=== PATIENT | female | born 1965 | race Caucasian/White ===

== ENCOUNTER 2023-02-13 08:36 | Day surgery (SDC) | payer OTHER, SELFPAY ==
[2023-02-13 08:50] VITALS: BMI 37.9
[2023-02-13] MEDS: LACTATED RINGER'S SOLUTION 1,000 ML 50 ML IV (08:59)
--- NOTE | 2023-02-13 09:01 | PC.NURSE ---
Dr. Adams made aware of elevated BP. He approved to continue with procedure at this time.
[2023-02-13 09:59] VITALS: BP 127/87; PULSE 95; RESP 16; TEMP 36.3; O2SAT 96
[2023-02-13 10:17] VITALS: BP 142/95; PULSE 96; RESP 14; O2SAT 97
[2023-02-13 10:29] VITALS: BP 153/96; PULSE 105; RESP 16; O2SAT 96
--- NOTE | 2023-02-13 11:02 | PM.GSPRC ---
Indications for Procedure: This patient is a 57-year-old female who presents for screening colonoscopy. the risks benefits options and potential complications of the procedure were discussed in detail with the patient and they agreed to proceed and consent was signed. Pre-op diagnosis: colon cancer screening Post-op diagnosis: other (diverticulosis) Procedure: colonoscopy Anesthesia: MAC Surgeon: Wes Jacob Procedure Summary: The patient was brought to the endoscopy suite and placed in the left lateral decubitus position.? Under MAC the fiberoptic colonoscope was introduced into the rectum. This was gradually advanced through the colon to the cecum. The cecal landmarks were identified. The bowel prep was good. Gradual withdrawal of the colonoscope was then undertaken. No vascular polypoid or mucosal lesions were noted throughout the entire length of the colon. In the descending colon there were scattered diverticuli. The anal rectal canal was unremarkable. The colon was decompressed. Digital rectal exam was unremarkable. The procedure was ended and the patient was transferred to the recovery area in stable condition. Recommended follow-up colonoscopy in ten years. Estimated blood loss (mL): 0 Specimens: none Complications: No
== END 2023-02-13 10:29 | disposition home or self-care (01) ==
PROVIDERS: PCP Family Medicine; Visit Provider Surgery
PROC: (CPT 45378; principal; 2023-02-13 11:45)
DX: Z12.11 Encounter for screening for malignant neoplasm of colon (principal); K57.30 Diverticulosis of large intestine without perforation or abscess without bleeding; Z79.899 Other long term (current) drug therapy; I12.9 Hypertensive chronic kidney disease with stage 1 through stage 4 chronic kidney disease, or unspecified chronic kidney disease; N18.30 Chronic kidney disease, stage 3 unspecified; I48.91 Unspecified atrial fibrillation; M19.90 Unspecified osteoarthritis, unspecified site; Z96.641 Presence of right artificial hip joint; Z96.662 Presence of left artificial ankle joint; Z90.721 Acquired absence of ovaries, unilateral; Z87.891 Personal history of nicotine dependence
CPT/HCPCS: 45378; J2704

== ENCOUNTER 2023-03-30 06:37 | Emergency (ER) | payer OTHER, SELFPAY ==
[2023-03-30 06:43] VITALS: BP 164/84; PULSE 102; RESP 18; TEMP 36.7; O2SAT 97; BMI 36.3
--- NOTE | 2023-03-30 07:10 | US_ITS ---
The [address] [address] Patient Name: OG SHEFFIELD MRN: [id number] date: 1965 Sex: F Assigned Patient Location: ER Current Patient Location: ER Accession/Order Number: [id number] Exam Date: 03/30/2023 07:15 Report Date: 03/30/2023 07:56 At the request of: AISHWARYA RASHID Procedure: US pelvis transvaginal EXAM: Pelvic ultrasound HISTORY: . postmenopausal bleeding . COMPARISON: None. TECHNIQUE: Transvaginal scanning was performed FINDINGS: Scanning of the pelvis demonstrates uterus to be anteverted and measures 8.8 x 5.5 x 3.9 cm. Endometrial complex measures 9 mm. Right ovary measures 2.6 x 1.7 x 1.7 cm. No masses are noted. Color-flow is noted. Left ovary was not identified. No fluid is noted in the cul-de-sac. US/US pelvis transvaginal IMPRESSION: 1 endometrial complex is thickened for patient that is postmenopausal measuring 9 mm. Findings could be due to endometrial hyperplasia or an endometrial neoplasm. 2. Normal right ovary. 3. Left ovary was not identified. Electronically authenticated by: SUZETTE COULTER Date: 03/30/2023 07:56
--- NOTE | 2023-03-30 07:12 | ED_ITS ---
HPI - Female Genitourinary General Chief complaint: Vaginal Bleeding Stated complaint: VAGINAL BLEEDING Time Seen by Provider: 03/30/23 07:03 Source: patient Mode of arrival: walk-in Limitations: no limitations History of Present Illness HPI Narrative: 57-year-old female presents for vaginal bleeding. She is postmenopausal but five years and she's been bleeding every day for a month. She describes it as spotting. She hasn't seen a spiral machine operator in many years. She had a dermoid cyst and had her left ovary and tube removed about twenty years ago. She doesn't complain of any significant pain to me. No fever or injury. She doesn't take any blood thinners. Related Data Home Medications Medication Instructions Recorded Confirmed amlodipine 10 mg tablet 10 mg PO DAILY 02/05/23 03/30/23 buspirone 5 mg tablet 5 mg PO BID 02/05/23 03/30/23 hydrochlorothiazide 25 mg tablet 12.5 mg PO DAILY 02/05/23 03/30/23 losartan 100 mg tablet (Cozaar) 100 mg PO DAILY 02/05/23 03/30/23 paroxetine HCl 20 mg tablet 20 mg PO DAILY 02/05/23 03/30/23 Previous Rx's Medication Instructions Recorded hydrocortisone acetate 25 mg 25 mg ME BID 2 weeks #28 supp 02/13/23 rectal suppository (Anusol-HC) Allergies Allergy/AdvReac Type Severity Reaction Status Date / Time meperidine [From Demerol] Allergy Hives Verified 03/30/23 06:49 Review of Systems ROS Narrative A ten point review of systems is negative except as noted above. [facility] Medical History (Updated 03/30/23 @ 08:20 by Roman Alston MD) Surgical History (Updated 02/05/23 @ 12:43 by Chary Stewart NP) Family History (Updated 02/05/23 @ 12:43 by Chary Stewart NP) Other Family history of hypertension Family history of kidney cancer Family history of stroke Family history of throat cancer Social History (Updated 02/13/23 @ 08:48 by Rand Choi RN) Within the past year, how often did you have a drink containing alcohol: 4 or more times a week Within the past year, how many standard drinks containing alcohol did you have on a typical day: 1 or 2 Total score: 0 Score interpretation: A score less than 3 is consistent with normal alcohol consumption. 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 General: The patient appears well and in no apparent distress. Patient is resting comfortably on cart. Skin: Warm, dry, no pallor noted. There is no rash noted. Head: Normocephalic, atraumatic Eye: Normal conjunctiva, no drainage Ears, Nose, Mouth, and Throat: oral mucosa is moist. Nares patent. Cardiovascular: Regular Rate and Rhythm Respiratory: Patient is in no distress, no accessory muscle use, lungs are clear to auscultation, no wheezing, rales or rhonchi Back: non-tender GI: no tenderness to palpation, no masses appreciated. No rebound, guarding, or rigidity noted. Musculoskeletal: The patient has no evidence of calf tenderness, no pitting edema, symmetrical pulses noted bilaterally Neurological: A&O x4, normal speech; she is tremorous Psychiatric: Cooperative Constitutional Vital Signs, click to edit/add: Last Vital Signs Temp 98.1 F 03/30/23 06:43 Pulse 102 H 03/30/23 06:43 Resp 18 03/30/23 06:43 BP 164/84 H 03/30/23 06:43 Pulse Ox 97 03/30/23 06:43 O2 Del Method Room Air 03/30/23 06:43 Course Vital Signs Vital signs: Vital Signs Temperature 98.1 F 03/30/23 06:43 Pulse Rate 102 H 03/30/23 06:43 Respiratory Rate 18 03/30/23 06:43 Blood Pressure 164/84 H 03/30/23 06:43 Pulse Oximetry 97 03/30/23 06:43 Oxygen Delivery Method Room Air 03/30/23 06:43 Temperature 98.1 F 03/30/23 06:43 Pulse Rate 102 H 03/30/23 06:43 Respiratory Rate 18 03/30/23 06:43 Blood Pressure 164/84 H 03/30/23 06:43 Pulse Oximetry 97 03/30/23 06:43 Oxygen Delivery Method Room Air 03/30/23 06:43 MDM - Female Genitourinary MDM Narrative Medical decision making narrative: ultrasound findings are discussed with the patient. She'll follow up promptly with gynecology. Hemoglobin is normal. Treatment diagnosis and follow-up were discussed with the patient. Differential Diagnosis Differential diagnosis: Likely other (endometrial hyperplasia, uterine cancer) Lab Data Attestation: I reviewed the patient's lab results. Labs: Lab Results 03/30/23 Range/Units 07:41 WBC 13.3 H (4.0-11.0) 10^3/uL RBC 4.62 (4.20-5.40) 10^6/uL Hgb 14.1 (12.0-16.0) g/dL Hct 41.4 (36.0-48.0) % MCV 89.6 (81.0-99.0) fL MCH 30.5 (26.7-34.0) pg MCHC 34.1 (29.9-35.2) g/dL RDW 13.8 (11.0-15.0) % Plt Count 336 (150-450) 10^3/uL MPV 8.3 L (9.5-13.5) fL Neut % (Auto) 83.6 H (43.0-75.0) % Lymph % (Auto) 10.3 L (20.5-60.0) % [place] % (Auto) 5.0 (1.7-12.0) % Eos % (Auto) 0.3 L (0.9-7.0) % Baso % (Auto) 0.3 (0.2-2.0) % Neut # (Auto) 11.1 H (1.4-6.5) 10^3/uL Lymph # (Auto) 1.4 (1.2-3.8) 10^3/uL [place] # (Auto) 0.7 (0.3-0.8) 10^3/uL Eos # (Auto) 0.0 (0.0-0.7) 10^3/uL Baso # (Auto) 0.0 (0.0-0.1) 10^3/uL Abs Immat Gran (auto) 0.06 H (0.00-0.03) 10^3/uL Imm/Tot Granulo (auto) 0.5 (0.0-0.5) % Sodium 138 (136-145) mmol/L Potassium 3.8 (3.5-5.1) mmol/L Chloride 100 (98-107) mmol/L Carbon Dioxide 26.6 (21.0-32.0) mmol/L Anion Gap 15.2 BUN 9.0 (7.0-18.0) mg/dL Creatinine 0.77 (0.55-1.02) mg/dL Est GFR ( Amer) >60 (>=60) Est GFR (Non-Af Amer) >60 (>=60) BUN/Creatinine Ratio 11.7 Glucose 119 H (74-106) mg/dL Calcium 8.6 (8.5-10.1) mg/dL Discharge Plan Discharge Chief Complaint: Vaginal Bleeding Clinical Impression: Dysfunctional uterine bleeding Patient Disposition: Home, Self-Care Time of Disposition Decision: 08:19 Condition: Good Mode of Transportation: Private Vehicle Prescriptions / Home Meds: No Action amlodipine 10 mg tablet 10 mg PO DAILY buspirone 5 mg tablet 5 mg PO BID hydrochlorothiazide 25 mg tablet 12.5 mg PO DAILY losartan [Cozaar] 100 mg tablet 100 mg PO DAILY paroxetine HCl 20 mg tablet 20 mg PO DAILY hydrocortisone acetate [Anusol-HC] 25 mg suppository 25 mg ME BID 14 Days Qty: 28 0RF Instructions: Abnormal (Dysfunctional) Uterine Bleeding (ED) Additional Instructions: follow-up with Dr. Davidson Stand Alone Forms: Portal Instructions Referrals: Sam Garcia MD [Primary Care Provider] - 1 week
[2023-03-30 07:50] LABS: Basophils Percent Auto 0.3 % (0.2-2.0); Eosinophils Percent Auto 0.3 % (0.9-7.0); Hematocrit 41.4 % (36.0-48.0); Hemoglobin 14.1 g/dL (12.0-16.0); Immature Granulocytes Abs Auto 0.06 10^3/uL (0.00-0.03); Immature Granulocytes Pct Auto 0.5 % (0.0-0.5); Lymphocytes Absolute Auto 1.4 10^3/uL (1.2-3.8); Lymphocytes Percent Auto 10.3 % (20.5-60.0); Mean Corpuscular HGB Conc 34.1 g/dL (29.9-35.2); Mean Corpuscular Hemoglobin 30.5 pg (26.7-34.0); Mean Corpuscular Volume 89.6 fL (81.0-99.0); Mean Platelet Volume 8.3 fL (9.5-13.5); Monocytes Absolute Auto 0.7 10^3/uL (0.3-0.8); Neutrophils Absolute Auto 11.1 10^3/uL (1.4-6.5); Neutrophils Percent Auto 83.6 % (43.0-75.0); Platelet Count 336 10^3/uL (150-450); Red Blood Count 4.62 10^6/uL (4.20-5.40); Red Cell Distribution Width 13.8 % (11.0-15.0); White Blood Count 13.3 10^3/uL (4.0-11.0)
[2023-03-30 07:59] LABS: Anion Gap 15.2; BUN Creatinine Ratio 11.7; Calcium 8.6 mg/dL (8.5-10.1); Carbon Dioxide 26.6 mmol/L (21.0-32.0); Chloride 100 mmol/L (98-107); Estimated GFR (African America >60 (>=60); Estimated GFR (Non-African Ame >60 (>=60); Glucose 119 mg/dL (74-106); Potassium 3.8 mmol/L (3.5-5.1); Sodium 138 mmol/L (136-145)
== END 2023-03-30 08:25 | disposition home or self-care (01) ==
PROVIDERS: Emergency Provider Emergency Medicine; PCP Family Medicine
DX: N93.8 Other specified abnormal uterine and vaginal bleeding (principal); Z90.79 Acquired absence of other genital organ(s); Z90.721 Acquired absence of ovaries, unilateral; Z79.899 Other long term (current) drug therapy; Z87.891 Personal history of nicotine dependence
CPT/HCPCS: 36415; 76830; 80048; 85025; 99284

== ENCOUNTER 2023-07-06 20:22 | Outpatient (REF) | payer OTHER, SELFPAY ==
[2023-07-11 08:10] LABS: Age Gdln ACOG Testing Note (.); HPV Aptima Negative (Negative); IGP, Aptima HPV, rfx 16/18,45 Note (.)
== END 2023-07-06 20:23 | disposition home or self-care (01) ==
LOC: LAB 20:22
PROVIDERS: PCP Family Medicine; Visit Provider Obstetrics & Gynecology
DX: Z01.419 Encounter for gynecological examination (general) (routine) without abnormal findings (principal)
CPT/HCPCS: 87624; G0145

== ENCOUNTER 2023-08-04 13:35 | Outpatient (OUT) | payer OTHER, SELFPAY ==
--- NOTE | 2023-08-04 13:41 | ECG_ITS ---
The [facility] Test Date: 2023-08-04 Pat Name: OG SHEFFIELD Department: Room: - Gender: Female Liver Trimmer: : 1965 Requested By: JOHNNY GREEN Order Number: [id number] Reading MD: ALVINO MCDERMOTT Measurements Intervals [place] Rate: 100 P: 38 OK: 181 QRS: 59 QRSD: 94 T: 61 QT: 385 QTc: 498 Interpretive Statements SINUS TACHYCARDIA NONSPECIFIC T-WAVE ABNORMALITY ABNORMAL RHYTHM ECG No previous ECG available for comparison Electronically Signed On 08-05-2023 7:02:16 EST by ALVINO MCDERMOTT
--- NOTE | 2023-08-04 14:05 | XR_ITS ---
The [address] [address] Patient Name: OG SHEFFIELD MRN: [id number] date: 1965 Sex: F Assigned Patient Location: [facility] Current Patient Location: [facility] Accession/Order Number: [id number] Exam Date: 08/04/2023 14:25 Report Date: 08/04/2023 14:49 At the request of: KHUSHBOO WILKS Procedure: XR chest 2V EXAM: XR chest 2V HISTORY: pre-op COMPARISON: None. TECHNIQUE: PA and lateral views of the chest. FINDINGS: The cardiomediastinal silhouette is normal. No focal consolidation is identified. There is no pneumothorax. No pleural effusion is noted. The osseous structures are intact. XR/XR chest 2V IMPRESSION: No acute cardiopulmonary process. Electronically authenticated by: GEORGIA PHILLIPS Date: 08/04/2023 14:49
--- NOTE | 2023-08-04 14:18 | PM.PRESUREVA ---
History of Present Illness History of Present Illness Chief complaint: postmenopausal bleeding Narrative: Patient presents for preadmission testing. The patient states she has been through menopause, but has had vaginal bleeding since her colonoscopy in January of this year. She denies abdominal pain, nausea, vomiting, fever, or any other complaints. The patient states she has a history of two episodes of atrial fibrillation in her lifetime but it has been five years since she has been to cardiology and she has not had any episodes. She has known hypertension and is compliant with her medications. Review of Systems ROS Narrative REVIEW OF SYSTEMS: Negative except as stated in HPI, ten or more systems reviewed. Constitutional: No fever , chills, weakness ENT: No sore throat or epistaxis Cardiovascular: No edema, chest pain, or palpitations Respiratory: No shortness of breath, cough, or wheezing Musculoskeletal: No joint pain or swelling Gastrointestinal: No abdominal pain, constipation, diarrhea, or vomiting Genitourinary: No dysuria or hematuria Neurological: No numbness, tingling, weakness, or headache Psychiatric: No mood changes PFSH PFSH Medical History (Updated 08/04/23 @ 14:01 by Chary Stewart NP) Arthritis ?M19.90 - Unspecified osteoarthritis, unspecified site (ICD-10) Depression ?F32.A - Depression, unspecified (ICD-10) Chronic obstructive pulmonary disease ?J44.9 - Chronic obstructive pulmonary disease, unspecified (ICD-10) Snoring ?R06.83 - Snoring (ICD-10) Post-menopausal bleeding ?N95.0 - Postmenopausal bleeding (ICD-10) Menopause ?Z78.0 - Asymptomatic menopausal state (ICD-10) CKD (chronic kidney disease) ?N18.9 - Chronic kidney disease, unspecified (ICD-10) Anxiety ?F41.9 - Anxiety disorder, unspecified (ICD-10) Atrial fibrillation ?I48.91 - Unspecified atrial fibrillation (ICD-10) High cholesterol ?E78.00 - Pure hypercholesterolemia, unspecified (ICD-10) Hypertension ?I10 - Essential (primary) hypertension (ICD-10) Surgical History (Updated 08/04/23 @ 14:01 by Chary Stewart NP) History of colonoscopy ?Z98.890 - Other specified postprocedural states (ICD-10) S/P epidural steroid injection ?Z92.241 - Personal history of systemic steroid therapy (ICD-10) History of tubal ligation ?Z98.51 - Tubal ligation status (ICD-10) History of bilateral oophorectomy ?Z90.722 - Acquired absence of ovaries, bilateral (ICD-10) History of arthroplasty of left ankle ?Z98.890 - Other specified postprocedural states (ICD-10) History of arthroscopy of knee ?Z98.890 - Other specified postprocedural states (ICD-10) History of total hip arthroplasty ?Z96.649 - Presence of unspecified artificial hip joint (ICD-10) Family History (Updated 02/05/23 @ 12:43 by Chary Stewart NP) Other Family history of hypertension Family history of kidney cancer Family history of stroke Family history of throat cancer Social History (Updated 02/13/23 @ 08:48 by Rand Choi RN) Within the past year, how often did you have a drink containing alcohol: 4 or more times a week Within the past year, how many standard drinks containing alcohol did you have on a typical day: 1 or 2 Total score: 0 Score interpretation: A score less than 3 is consistent with normal alcohol consumption. 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 Highest level of school completed/degree received: high school graduate Meds Home Medications and Allergies Home Medications Medication Instructions Recorded Confirmed Type amlodipine 10 mg tablet 10 mg PO DAILY 02/05/23 08/04/23 History buspirone 5 mg tablet 5 mg PO DAILY 02/05/23 08/04/23 History hydrochlorothiazide 25 mg tablet 25 mg PO DAILY 02/05/23 08/04/23 History losartan 100 mg tablet (Cozaar) 100 mg PO DAILY 02/05/23 08/04/23 History hydrocortisone acetate 25 mg 25 mg [place] BID 2 weeks #28 supp 02/13/23 03/30/23 Rx rectal suppository (Anusol-HC) hydroxyzine HCl 25 mg tablet 25 mg PO BID 08/04/23 08/04/23 History paroxetine HCl 30 mg tablet 30 mg PO DAILY 08/04/23 08/04/23 History Allergies Allergy/AdvReac Type Severity Reaction Status Date / Time meperidine [From Demerol] Allergy Hives Verified 08/04/23 13:53 Exam Narrative Exam Narrative: Constitutional: Awake, alert, comfortable, well-appearing, nontoxic, interactive, vital signs as charted Head: Normocephalic, atraumatic Neck: Supple, normal appearance, normal range of motion, no meningeal signs, no lymphadenopathy Respiratory: No respiratory distress, breath sounds clear Cardiovascular: Regular rate and rhythm, strong and regular heart tones Abdomen: Nontender, normal bowel sounds, soft, no CVA tenderness Musculoskeletal: Normal gait, no swelling or edema Skin: No rashes or induration, no lesions, only visible skin inspected Neuro: No neurological deficits, normal sensation Psychiatric: Oriented ?3, normal affect Assessment and Plan Assessment and Plan (1) Post-menopausal bleeding: Plan D and C, hysteroscoopy, possible Myosure scheduled with Dr. Davidson 08/07/2023.
[2023-08-04 14:40] LABS: Basophils Percent Auto 0.4 % (0.2-2.0); Eosinophils Absolute Auto 0.1 10^3/uL (0.0-0.7); Eosinophils Percent Auto 1.2 % (0.9-7.0); Hematocrit 40.2 % (36.0-48.0); Immature Granulocytes Abs Auto 0.04 10^3/uL (0.00-0.03); Immature Granulocytes Pct Auto 0.5 % (0.0-0.5); Lymphocytes Absolute Auto 1.8 10^3/uL (1.2-3.8); Lymphocytes Percent Auto 21.7 % (20.5-60.0); Mean Corpuscular HGB Conc 32.3 g/dL (29.9-35.2); Mean Corpuscular Hemoglobin 29.9 pg (26.7-34.0); Mean Corpuscular Volume 92.4 fL (81.0-99.0); Mean Platelet Volume 8.7 fL (9.5-13.5); Monocytes Absolute Auto 0.8 10^3/uL (0.3-0.8); Monocytes Percent Auto 9.8 % (1.7-12.0); Neutrophils Absolute Auto 5.6 10^3/uL (1.4-6.5); Neutrophils Percent Auto 66.4 % (43.0-75.0); Platelet Count 312 10^3/uL (150-450); Red Blood Count 4.35 10^6/uL (4.20-5.40); Red Cell Distribution Width 14.1 % (11.0-15.0); White Blood Count 8.4 10^3/uL (4.0-11.0)
[2023-08-04 14:41] LABS: Anion Gap 10.1; Calcium 9.4 mg/dL (8.5-10.1); Carbon Dioxide 32.6 mmol/L (21.0-32.0); Chloride 100 mmol/L (98-107); Estimated GFR (African America >60 (>=60); Estimated GFR (Non-African Ame >60 (>=60); Glucose 131 mg/dL (74-106); Potassium 3.7 mmol/L (3.5-5.1); Sodium 139 mmol/L (136-145)
[2023-08-04 14:48] LABS: INR 0.96; Partial Thromboplastin Time 26.7 sec (22.3-36.2); Prothrombin Time 10.2 sec (9.0-11.6)
== END 2023-08-04 13:36 | disposition home or self-care (01) ==
LOC: PST 13:36
PROVIDERS: Nurse Practitioner; PCP Family Medicine; Visit Provider Obstetrics & Gynecology
DX: Z01.810 Encounter for preprocedural cardiovascular examination (principal); Z01.812 Encounter for preprocedural laboratory examination; N95.0 Postmenopausal bleeding
CPT/HCPCS: 36415; 71046; 80048; 85025; 85610; 85730; 93005; G0463

== ENCOUNTER 2023-08-07 09:44 | Day surgery (SDC) | payer OTHER, SELFPAY ==
[2023-08-04 14:12] VITALS: BP 164/99; PULSE 91; RESP 20; TEMP 36.3; O2SAT 96; BMI 40.4
[2023-08-07] VITALS (11 sets, daily range): BP systolic 126–168; BP diastolic 82–99; PULSE 75–98; RESP 12–24; TEMP 36.3–36.7; O2SAT 96–100; BMI 40.3
[2023-08-07 09:59] LABS: Basophils Percent Auto 0.3 % (0.2-2.0); Eosinophils Absolute Auto 0.1 10^3/uL (0.0-0.7); Eosinophils Percent Auto 0.7 % (0.9-7.0); Hematocrit 40.8 % (36.0-48.0); Hemoglobin 13.1 g/dL (12.0-16.0); Immature Granulocytes Abs Auto 0.06 10^3/uL (0.00-0.03); Immature Granulocytes Pct Auto 0.7 % (0.0-0.5); Lymphocytes Absolute Auto 1.6 10^3/uL (1.2-3.8); Lymphocytes Percent Auto 17.9 % (20.5-60.0); Mean Corpuscular HGB Conc 32.1 g/dL (29.9-35.2); Mean Corpuscular Hemoglobin 29.6 pg (26.7-34.0); Mean Corpuscular Volume 92.3 fL (81.0-99.0); Mean Platelet Volume 8.5 fL (9.5-13.5); Monocytes Absolute Auto 0.7 10^3/uL (0.3-0.8); Monocytes Percent Auto 7.7 % (1.7-12.0); Neutrophils Absolute Auto 6.3 10^3/uL (1.4-6.5); Neutrophils Percent Auto 72.7 % (43.0-75.0); Platelet Count 323 10^3/uL (150-450); Red Blood Count 4.42 10^6/uL (4.20-5.40); White Blood Count 8.7 10^3/uL (4.0-11.0)
[2023-08-07] MEDS: LACTATED RINGER'S SOLUTION 1,000 ML 50 ML IV (10:54)
--- NOTE | 2023-08-07 11:37 | PM.ONB ---
Brief Operative Note Date of procedure: 08/07/23 Pre-op diagnosis: thickened endometrium, pmb Post-op diagnosis: same as pre-op Procedure: NAME OF PROCEDURE: [ D&c hysteroscopy with myosure and removal of uterine polyp finding:thickened endometrium, uterine polyp PROCEDURE: The patient was taken back to the Operating Room where she was prepped and draped in normal sterile fashion after being placed under general anesthesia without difficulty. She was also placed in the dorsal lithotomy position. A weighted speculum was placed in the patient?s vagina. The anterior lip of the cervix was identified and grasped with a single tooth tenaculum. The patient?s uterus was then sounded roughly to [? 8] cm. The patient was then gently dilated using Hegar dilators. The hysteroscope was passed through the patient?s cervix into the uterus. Both ostia were identified. fluffy appearing endometrium. No gross evidence of malignancy, no gross evidence of polyps or fibroids. The myosure apparatus was used and all quadrants were sampled along with removal of uterine polyps The endometrial curettings were sent out to pathology. The single tooth tenaculum was then removed from the patient's anterior lip of the cervix where excellent hemostasis was noted. All instruments were removed from the patient?s vagina. The patient tolerated the procedure well. Sponge, lap and needle counts were correct times two. The patient was taken to the Recovery Room in stable condition.Room in stable condition. Anesthesia: GETA Surgeon: Azeem Davidson Pathology: other (endometrial currettings and uterine polyp) Condition: stable Disposition: PACU Urinary Catheter Management Urinary Catheter Management Urethral: Cath placed during this visit: no
--- NOTE | 2023-08-07 13:45 | PC.NURSE ---
Up to bathroom and voids without difficulty; red in toliet bowl
== END 2023-08-07 13:20 | disposition home or self-care (01) ==
PROVIDERS: PCP Family Medicine; Visit Provider Obstetrics & Gynecology
PROC: (CPT 952; principal; 2023-08-07 11:05)
DX: N95.0 Postmenopausal bleeding (principal); J44.9 Chronic obstructive pulmonary disease, unspecified; I48.91 Unspecified atrial fibrillation; N18.9 Chronic kidney disease, unspecified; R93.89 Abnormal findings on diagnostic imaging of other specified body structures; I12.9 Hypertensive chronic kidney disease with stage 1 through stage 4 chronic kidney disease, or unspecified chronic kidney disease; M19.90 Unspecified osteoarthritis, unspecified site; F32.A Depression, unspecified; F41.9 Anxiety disorder, unspecified; E78.00 Pure hypercholesterolemia, unspecified; Z98.51 Tubal ligation status; Z90.722 Acquired absence of ovaries, bilateral; Z87.891 Personal history of nicotine dependence; Z96.641 Presence of right artificial hip joint; Z96.662 Presence of left artificial ankle joint; E66.01 Morbid (severe) obesity due to excess calories; Z68.41 Body mass index [BMI] 40.0-44.9, adult
CPT/HCPCS: 58558; 36415; 85025; 88305; J2704

== ENCOUNTER 2024-07-11 07:40 | Emergency (ER) | payer OTHER, SELFPAY ==
[2024-07-11] VITALS (9 sets, daily range): BP systolic 125; BP diastolic 78; PULSE 93–103; TEMP 36.9; O2SAT 97–100; BMI 48.2
--- NOTE | 2024-07-11 07:57 | XR_ITS ---
The [address] [address] Patient Name: OG SHEFFIELD MRN: [id number] date: 1965 Sex: F Assigned Patient Location: ED.MAIN Current Patient Location: ER Accession/Order Number: [id number] Exam Date: 07/11/2024 08:04 Report Date: 07/11/2024 08:23 At the request of: AISHWARYA RASHID Procedure: XR chest 1V EXAM: XR chest 1V HISTORY: . cough . COMPARISON: None. TECHNIQUE: Single view of the chest FINDINGS: Heart and vascularity are unremarkable. Lungs are free of focal infiltrates. EKG leads overlie the chest. Arthritic changes of the left shoulder are noted. XR/XR chest 1V IMPRESSION: No acute heart or lung disease identified. Electronically authenticated by: SUZETTE COULTER Date: 07/11/2024 08:23
--- NOTE | 2024-07-11 07:57 | ED.URI1 ---
HPI - URI/Sore Throat General Chief Complaint: Upper Respiratory Infection Stated Complaint: URTI COMPLAINTS/COUGHING Time Seen by Provider: 07/11/24 07:46 Source: patient Limitations: no limitations History of Present Illness HPI Narrative: 58-year-old female presents for cough which is nonproductive. It started within the last few days. She states she was coughing so hard yesterday she passed out. She states her chest hurts from all the coughing. She quit smoking over 10 years ago and does not use inhalers any longer. Related Data Home Medications ?Medication ?Instructions ?Recorded ?Confirmed amlodipine 10 mg tablet 10 mg PO DAILY 02/05/23 08/07/23 buspirone 5 mg tablet 5 mg PO DAILY 02/05/23 08/07/23 hydrochlorothiazide 25 mg tablet 25 mg PO DAILY 02/05/23 08/07/23 losartan 100 mg tablet (Cozaar) 100 mg PO DAILY 02/05/23 08/07/23 hydroxyzine HCl 25 mg tablet 25 mg PO BID 08/04/23 08/07/23 paroxetine HCl 30 mg tablet 30 mg PO DAILY 08/04/23 08/07/23 Previous Rx's ?Medication ?Instructions ?Recorded hydrocortisone acetate 25 mg 25 mg [place] BID 2 weeks #28 supp 02/13/23 rectal suppository (Anusol-HC) albuterol sulfate 90 mcg/actuation 2 inh inhalation Q4H PRN shortness 07/11/24 aerosol inhaler of breath or wheezing #8.5 grams azithromycin 250 mg tablet See Rx Instructions PO .COMPLEX #6 07/11/24 (Zithromax Z-Inocencio) tabs benzonatate 100 mg capsule 100 mg PO TID PRN cough #20 caps 07/11/24 Allergies Allergy/AdvReac Type Severity Reaction Status Date / Time meperidine (From Demerol) Allergy Hives Verified 08/04/23 13:53 Review of Systems ROS Narrative A ten point review of systems is negative except as noted above. [facility] Medical History (Updated 07/11/24 @ 08:36 by Roman Alston MD) Arthritis ?M19.90 - Unspecified osteoarthritis, unspecified site (ICD-10) Depression ?F32.A - Depression, unspecified (ICD-10) Chronic obstructive pulmonary disease ?J44.9 - Chronic obstructive pulmonary disease, unspecified (ICD-10) Snoring ?R06.83 - Snoring (ICD-10) Post-menopausal bleeding ?N95.0 - Postmenopausal bleeding (ICD-10) Menopause ?Z78.0 - Asymptomatic menopausal state (ICD-10) CKD (chronic kidney disease) ?N18.9 - Chronic kidney disease, unspecified (ICD-10) Anxiety ?F41.9 - Anxiety disorder, unspecified (ICD-10) Atrial fibrillation ?I48.91 - Unspecified atrial fibrillation (ICD-10) High cholesterol ?E78.00 - Pure hypercholesterolemia, unspecified (ICD-10) Hypertension ?I10 - Essential (primary) hypertension (ICD-10) Surgical History (Updated 08/04/23 @ 14:01 by Chary Stewart NP) History of colonoscopy ?Z98.890 - Other specified postprocedural states (ICD-10) S/P epidural steroid injection ?Z92.241 - Personal history of systemic steroid therapy (ICD-10) History of tubal ligation ?Z98.51 - Tubal ligation status (ICD-10) History of bilateral oophorectomy ?Z90.722 - Acquired absence of ovaries, bilateral (ICD-10) History of arthroplasty of left ankle ?Z98.890 - Other specified postprocedural states (ICD-10) History of arthroscopy of knee ?Z98.890 - Other specified postprocedural states (ICD-10) History of total hip arthroplasty ?Z96.649 - Presence of unspecified artificial hip joint (ICD-10) Family History (Updated 02/05/23 @ 12:43 by Chary Stewart NP) Other Family history of hypertension Family history of kidney cancer Family history of stroke Family history of throat cancer Social History (Updated 02/13/23 @ 08:48 by Rand Choi RN) Within the past year, how often did you have a drink containing alcohol: 4 or more times a week Within the past year, how many standard drinks containing alcohol did you have on a typical day: 1 or 2 Total score: 0 Score interpretation: A score less than 3 is consistent with normal alcohol consumption. 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 General: The patient appears in no apparent distress. Skin: Warm, dry, no pallor noted. There is no rash noted. Head: Normocephalic, atraumatic Eye: Normal conjunctiva, no drainage Ears, Nose, Mouth, and Throat: oral mucosa is moist. Nares patent. Cardiovascular: Regular Rate and Rhythm Respiratory: She appears mildly dyspneic. Breath sounds are diminished. Back: non-tender GI: Soft and nontender Musculoskeletal: The patient has no evidence of calf tenderness, no pitting edema, symmetrical pulses noted bilaterally Neurological: A&O, normal speech Psychiatric: Cooperative Constitutional Vital Signs, click to edit/add: Last Vital Signs Temp 98.4 F 07/11/24 07:47 Pulse 101 H 07/11/24 07:47 Resp 20 07/11/24 07:47 BP 125/78 07/11/24 07:47 Pulse Ox 97 07/11/24 08:18 O2 Del Method Room Air 07/11/24 08:18 Course Vital Signs Vital signs: Vital Signs Temperature 98.4 F 07/11/24 07:47 Pulse Rate 101 H 07/11/24 07:47 Respiratory Rate 20 07/11/24 07:47 Blood Pressure 125/78 07/11/24 07:47 Pulse Oximetry 98 07/11/24 07:47 Oxygen Delivery Method Room Air 07/11/24 07:47 Temperature 98.4 F 07/11/24 07:47 Pulse Rate 101 H 07/11/24 07:47 Respiratory Rate 20 07/11/24 07:47 Blood Pressure 125/78 07/11/24 07:47 Pulse Oximetry 97 07/11/24 08:18 Oxygen Delivery Method Room Air 07/11/24 08:18 MDM - URI/Sore Throat MDM Narrative Medical decision making narrative: COVID and influenza test are negative as is her chest x-ray. She is treated with Zithromax, albuterol, and Tessalon. Treatment diagnosis and follow-up were discussed with the patient. Differential Diagnosis Differential diagnosis: Likely upper respiratory infection, viral infection, influenza and other (COVID, pneumonia) Lab Data Attestation: I reviewed the patient's lab results. Labs: Lab Results 07/11/24 Range/Units 08:02 Influenza Type A Ag Negative Influenza Type B Ag Negative SARS-CoV-2 Ag (CV2AG) Negative (NEGATIVE) ECG Data Attestation: I personally reviewed and interpreted this ECG as follows: (EKG on my interpretation shows normal sinus rhythm with rate of 92 and no acute changes) Discharge Plan Discharge Chief Complaint: Upper Respiratory Infection Clinical Impression: Upper respiratory infection Patient Disposition: Home, Self-Care Time of Disposition Decision: 08:36 Condition: Good Mode of Transportation: Private Vehicle Prescriptions / Home Meds: New azithromycin [Zithromax Z-Inocencio] 250 mg tablet See Rx Instructions .ROUTE .COMPLEX Qty: 6 0RF Rx Instructions: For 250 mg dose pack: take 500 mg today (day 1), then 250 mg for 4 days (days 2-5) benzonatate 100 mg capsule 100 mg PO TID PRN (Reason: cough) Qty: 20 0RF albuterol sulfate 90 mcg/actuation HFA aerosol inhaler 2 inh inhalation Q4H PRN (Reason: shortness of breath or wheezing) Qty: 8.5 0RF No Action amlodipine 10 mg tablet 10 mg PO DAILY buspirone 5 mg tablet 5 mg PO DAILY hydrochlorothiazide 25 mg tablet 25 mg PO DAILY losartan [Cozaar] 100 mg tablet 100 mg PO DAILY hydrocortisone acetate [Anusol-HC] 25 mg suppository 25 mg [place] BID 14 Days Qty: 28 0RF hydroxyzine HCl 25 mg tablet 25 mg PO BID paroxetine HCl 30 mg tablet 30 mg PO DAILY Print Language: Micronesian Instructions: Upper Respiratory Infection (ED) Referrals: Sam Garcia MD [Primary Care Provider] - 1 week
--- NOTE | 2024-07-11 08:00 | ECG_ITS ---
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
[2024-07-11] MEDS: ALBUTEROL SULFATE 2.5 MG/3 ML VIAL NEB IH (08:17)
--- OUTSIDE RECORDS SUMMARY | 2024-07-11 08:25 | XMS_ITS | CCD ---
Author Organization [facility] Care Team Providers Care Party Plan 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 Name Role Phone RICARDA, FILIPPO Consulting Unavailable BETSY, DR TAY Velez Attending Unavailable BETSY, DR TAY Velez Admitting Unavailable JASONEREAbner, DR SAM Mccarthy Primary Care Unavailable RICARDA, FILIPPO Consulting Unavailable KARISSA, DR SAM Mccarthy Primary Care Unavailable BETSY, DR TAY Velez Attending Unavailable BETSY, DR TAY Velez Admitting Unavailable NADILIR, DR SAM Mccarthy Primary Care Unavailable BETSY, DR TAY Velez Attending Unavailable BETSY, DR TAY Velez Admitting Unavailable KARISSA, DR SAM Mccarthy Consulting Unavailable FILIPPO CHOWDARY Consulting Unavailable KARISSA, DR SAM Mccarthy Primary Care Unavailable BETSY, DR TAY Velez Attending Unavailable BETSY, DR TAY Velez Admitting Unavailable CHOWDARY, FILIPPO Consulting Unavailable BETSY, DR TAY Velez Consulting Unavailable BETSY, DR TAY Velez Attending Unavailable BETSY, DR TAY Velez Admitting Unavailable NADEREAbner, DR SAM Mccarthy Primary Care Unavailable CLINJOAQUINA, NIKKI Consulting Unavailable BETSY, DR TAY Velez Attending Unavailable BETSY, DR TAY Velez Admitting Unavailable NADILIR, DR SAM Mccarthy Primary Care Unavailable BETSY, DR TAY Velez Consulting Unavailable FREDA HARVEY Consulting Unavailable BETSY, DR TAY Velez Attending Unavailable BETSY, DR TAY Velez Admitting Unavailable BETSY, DR TAY Velez Consulting Unavailable NADILIR, DR SAM Mccarthy Primary Care Unavailable WES, FREDA Consulting Unavailable BETSY, DR TAY Velez Attending Unavailable BETSY, DR TAY Velez Admitting Unavailable CHOWDARY, FILIPPO Consulting Unavailable JASONEREAbner, DR SAM Mccarthy Primary Care Unavailable WILD, DR GEORGIA Levine Attending Unavailable NADEREAbner, DR SAM Mccarthy Primary Care Unavailable SORIN, DR SUZETTE Woodruff Consulting Unavailable WILD, DR GEORGIA Levine Admitting Unavailable LUIS RESTREPO Consulting Unavailable BETSY, DR TAY Velez Attending Unavailable BETSY, DR TAY Velez Admitting Unavailable BETSY, DR TAY Velez Consulting Unavailable NADERER, DR SAM Mccarthy Primary Care Unavailable NADERER, DR SAM Mccarthy Admitting Unavailable NADERER, DR SAM Mccarthy Primary Care Unavailable NADERER, DR SAM Mccarthy Consulting Unavailable NADERER, DR SAM Mccarthy Attending Unavailable NADERER, DR SAM Mccarthy Primary Care Unavailable ZIEBER, DR BERT Levine Consulting Unavailable CHOWDARY, FILIPPO Attending Unavailable CHOWDARY, FILIPPO Admitting Unavailable CHOWDARY, FILIPPO Consulting Unavailable MEYER, DR TAY Velez Attending Unavailable MEYER, DR TAY Velez Admitting Unavailable NADERER, DR SAM Mccarthy Primary Care Unavailable BARBARA HA Attending Unavailable Karissa DEMARCO, Sam Primary Care Provider Karissa DEMARCO, Sam Primary Care Provider SAM HANCOCK Admitting Unavailable NADERER, SAM Mccarthy Attending Unavailable NADEREAbner, SAM Mccarthy Primary Care Unavailable NADERER, SAM Primary Care Unavailable LIT GIFFORD Attending Unavailable CHOCO SALAMANCA Consulting Unavailable NOUMI, JAMES Admitting Unavailable HEMATOLOGY, [place] BENIGN Consulting Maranda vailable JABARI LO Referring Unavailable NADERER, SAM Primary Care Unavailable JABARI LO Referring Unavailable NADERER, SAM Primary Care Unavailable JABARI LO Referring Unavailable NADERER, SAM Primary Care Unavailable JALEN PIERCE Attending Unavailabl e JALEN PIERCE Referring Unavailabl e NADERER, SAM Primary Care Unavailable CLAUDY NAVARRETE Attending Unavailable NADERER, SAM Primary Care Unavailable JALEN PIERCE Attending Unavailabl e JALEN PIERCE Referring Unavailabl e NADERER, SAM Primary Care Unavailable TONIO, CHRISTY Referring Unavailable NADERER, SAM Primary Care Unavailable JADONANO, CHRISTY Referring Unavailable NADERER, SAM Primary Care Unavailable FRANCO BARAKAT Referring Unavailabl e NADERER, SAM Primary Care Unavailable JALEN PIERCE Referring Unavailabl e NADERER, SAM Primary Care Unavailable JALEN PIERCE Attending Unavailabl e NADERER, SAM Referring Unavailable NADERER, SAM Primary Care Unavailable JALEN PIERCE Referring Unavailabl e NADERER, SAM Primary Care Unavailable JALEN PIERCE Attending Unavailabl e NADERER, SAM Referring Unavailable NADERER, SAM Primary Care Unavailable JALEN PIERCE Referring Unavailabl e NADERER, SAM Primary Care Unavailable JALEN PIERCE Attending Unavailabl e NADERER, SAM Referring Unavailable NADERER, SAM Primary Care Unavailable OSMANI, EVER Mccarthy Attending Unavailable CHRISTY CARY Attending Unavailable OSMANI, EVER Mccarthy Referring Unavailable OSMANI, EVER Mccarthy Attending Unavailable NADERER, SAM Attending Unavailable NICOLE GUIDRY Attending Unavailable OSMANI, EVER Mccarthy Referring Unavailable TELLES, VIANCA Ram Attending Unavailable OSMANI, EVER Mccarthy Referring Unavailable TELLES, VIANCA Ram Attending Unavailable OSMANI, EVER A Referring Unavailable OSMANI, EVER Mccarthy Attending Unavailable TELLES, VIANCA Ram Attending Unavailable OSMANI, EVER A Referring Unavailable OSMANI, EVER Mccarthy Attending Unavailable TELLES, VIANCA Ram Attending Unavailable OSMANI, EVER A Referring Unavailable AZEEM DAVIDSON Attending Unavailable NADERER, SAM Attending Unavailable RICHARDSON, MORGAN Drew Attending Unavailable RICHARDSON, MORGAN Drew Referring Unavailable NADERER, SAM Primary Care Unavailable HARTALAN, ERIK Ram Attending Unavailable HARTLE, ERIK Ram Attending Unavailable HARTLE, ERIK Ram Referring Unavailable NADERER, SAM Primary Care Unavailable OSMANI, EVER A Referring Unavailable NADERER, SAM Primary Care Unavailable OSMANI, EVER A Referring Unavailable NADERER, SAM Primary Care Unavailable HARTLE, ERIK Ram Attending Unavailable HARTLE, ERIK Ram Referring Unavailable NADERER, SAM Primary Care Unavailable NADERER, SAM Referring Unavailable NADERER, SAM Primary Care Unavailable OSMANI, EVER Mccarthy Attending Unavailable OSMANI, EVER Mccarthy Referring Unavailable NADERER, SAM Primary Care Unavailable OSMANI, EVER A Referring Unavailable NADERER, SAM Primary Care Unavailable OSMANI, EVER Mccarthy Admitting Unavailable OSMANI, EVER Mccarthy Attending Unavailable OSMANI, EVER Mccarthy Referring Unavailable NADERER, SAM Primary Care Unavailable FAIZA CARRANZA Attending Unavailable NADERER, SAM Primary Care Unavailable OSMANI, EVER Mccarthy Attending Unavailable OSMANI, EVER Mccarthy Referring Unavailable NADERER, SAM Primary Care Unavailable OSMANI, EVER Mccarthy Attending Unavailable OSMANI, EVER Mccarthy Referring Unavailable NADERER, SAM Primary Care Unavailable Allergies Allergy Classification Reported Allergen(s) Allergy Type Date of Onset Reaction(s) Facility (2 sources) Meperidine Drug Allergy [facility] Repository (12 sources) Meperidine; Translations: [MEPERIDINE] Drug Allergy 07-24-2022 [facility] Repository Medications Current Medications Medication Drug Class(es) Dates Sig (Normalized) Sig (Original) acetaminophen 500 mg oral tablet (2 sources) Start: 10-15-2023 acetaminophen (TYLENOL EXTRA STRENGTH) tablet 1,000 mg Start: 10-15-2023 End: 10-15-2023 acetaminophen (TYLENOL) tabl et 650 mg amLODIPine 10 mg oral tablet (14 sources) Dihydropyridine Calcium Channel Josemanuel Start: 10-06-2023 End: 06-21-2024 take 1 tablet by mouth once daily amLODIPine (Norvasc) 10 MG tablet Indications: Essential hypertension, benign (CMS/HCC) Take 1 tablet (10 mg) by mouth Daily 30 tablet 5 06/21/2024 Active aspirin 325 mg delayed release oral tablet (3 sources) Platelet Aggregation Inhibitor, Nonsteroidal Anti-inflammatory Drug Start: 10-16-2023 aspirin EC tablet 325 mg take 1 tablet by mouth in the mo rning aspirin 81 mg Take 1 tablet (81 mg total) by mouth in the morning. 0 bisacodyl 10 mg rectal suppository (1 source) Stimulant Laxative Start: 10-17-2023 bisacodyL (DULCOLAX) suppository 10 mg busPIRone hydrochloride 5 mg oral tablet (13 sources) Start: 11-27-2022 End: 06-21-2024 take 1 tablet by mouth in the morning busPIRone (Buspar) 5 MG tablet Indications: Generalized anxiety disorder (CMS/HCC) Take 1 tablet (5 mg) by mouth in the morning and 1 tablet (5 mg) before bedtime. 60 tablet 3 06/21/2024 Active calcium chloride 0.0014 meq/ml / potassium chloride 0.004 meq/ml / sodium chloride 0.103 meq/ml / sodium lactate 0.028 meq/ml injectable solution (2 sources) Start: 10-15-2023 End: 10-15-2023 lactated ringers infusion docusate sodium 50 mg / sennosides, detention 8.6 mg oral tablet (1 source) Start: 10-16-2023 sennosides-doc usat e sodium (SENOKOT-S) 8.6-50 mg 1 tablet ferrous sulfate 325 mg oral tablet (5 sources) Start: 10-15-2023 ferrous sulfat e tablet 325 mg Start: 09-17-2023 End: 11-16-2023 take 1 tablet by mouth once daily at breakfast ferrous sulfate 325 (65 FE) mg EC tablet Take 1 tablet (325 mg total) by mouth daily with breakfast. 0 09/17/2023 11/16/2023 Active furosemide 40 mg oral tablet (1 source) Loop Diuretic Start: 07-01-2024 take 1 tablet by mouth once daily as needed for edema furosemide (Lasix) 40 MG tablet Indications: Edema of both legs Take 1 tablet (40 mg) by mouth Daily as needed (Edema) 30 tablet 5 07/01/2024 Active Start: 07-01-2024 [facility] daily as needed for edema furosemide (Lasix) 40 MG tablet Indications: Edema of both legs Take 1 tablet (40 mg) by mouth Daily as needed (Edema) 30 tablet 5 07/01/2024 Active hydroCHLOROthiazide 25 mg oral tablet (13 sources) Thiazide Diuretic Start: 10-06-2023 End: 06-21-2024 take 1 tablet by mouth once daily hydroCHLOROthiazide (HYDRODiuril) 25 MG tablet Indications: Essential hypertension, benign (CMS/HCC) Take 1 tablet (25 mg) by mouth Daily 30 tablet 5 06/21/2024 Active hydrOXYzine hydrochloride 25 mg oral tablet (14 sources) Antihistamine Start: 06-21-2024 take 1 tablet by mouth four times daily as needed for anxiety hydrOXYzine HCl (Atarax) 25 MG tablet Indications: Generalized anxiety disorder (CMS/HCC) Take 1 tablet (25 mg) by mouth 4 (four) times a day as needed for anxiety 60 tablet 2 06/21/2024 Active Start: 10-15-2023 hydrOXYzine (A TARAX) tablet 10 mg Start: 10-15-2023 take 25 mg by mouth three times daily as needed 25 mg, oral, 3 times daily PRN, itching, Starting on Tressa 10/15/23 at 1439, Look-alike/sound-alike medication - verify indication for use. Start: 10-24-2022 End: 06-21-2024 take 1 tablet by mouth once hydrOXYzine HCl (Atarax) 2 5 MG tablet Take 25 mg by mouth 1 (one) time. 10/24/2022 06/21/2024 Discontinued (Reorder) take 2 tablets by mo [facility] in the morning hydrOXYzine (ATARAX) 25 mg tablet Take 2 tablets (50 mg total) by mouth in the morning. 0 Active take 1 tablet by [facility] three times daily as needed hydrOXYzine (ATARAX) 25 mg tablet Take 1 tablet (25 mg total) by mouth 3 (three) times a day as needed for itching. 0 Active levothyroxine sodium 0.075 mg oral tablet (2 sources) l-Thyroxine Start: 07-01-2024 take 1 tablet by mouth before mealtime levothyroxine (Synthroid) 75 MCG tablet Indications: Adult hypothyroidism (CMS/HCC) Take 1 tablet (75 mcg) by mouth in the morning. Take before meals. 30 tablet 3 07/01/2024 Active Start: 07-01-2024 take 1 tablet by [facility] before mealtime levothyroxine (Synthroid) 75 MCG tablet Indications: Adult hypothyroidism (CMS/HCC) Take 1 tablet (75 mcg) by mouth in the morning. Take before meals. 30 tablet 3 07/01/2024 Active losartan potassium 100 mg oral tablet (13 sources) Angiotensin 2 Receptor Josemanuel Start: 04-04-2024 End: 06-21-2024 take 1 tablet by mouth once daily losartan (Cozaar) 100 MG tablet Indications: Essential hypertension, benign (CMS/HCC) Take 1 tablet (100 mg) by mouth Daily 30 tablet 5 06/21/2024 Active Start: 10-16-2023 take 100 mg by mouth once daily 100 mg, oral, Daily, First dose on Thu10/16/23 at 0900, Look-alike/sound-alike medication - verify indication for use. take 2 tablets by mo [facility] in the morning losartan (COZAAR) 50 mg tablet Take 2 tablets (100 mg total) by mouth in the morning. 0 Active take 1 tablet by [facility] in the morning losartan (Cozaar) 100 MG tablet Take 100 mg by mouth in the morning. 0 Active magnesium hydroxide 80 mg/ml oral suspension (1 source) Start: 10-17-2023 magnesium hydroxide (MILK OF MAGNESIA) suspension 30 mL morphine injection 2 mg (1 source) Start: 10-15-2023 take 2 mg intravenously every two hours as needed morphine injection 2 mg 2 ml ondansetron 2 mg/ml injection (1 source) Serotonin-3 Receptor Antagonist Start: 10-15-2023 take 4 mg intravenously every six hours as needed for nausea and vomiting ondansetron (PF) (ZOFRAN) injection 4 mg oxyCODONE hydrochloride 5 mg oral tablet (3 sources) Opioid Agonist Start: 10-17-2023 End: 10-22-2023 take 1 tablet by mouth every six hours as needed for pain oxyCODONE (ROXICODONE) 5 mg immediate release tablet Indications: Primary localized osteoarthritis of left hip Take 1 tablet (5 mg total) by mouth every 6 (six) hours as needed for pain for up to 5 days. Max Daily Amount: 20 mg 0 10/17/2023 10/22/2023 Active Start: 10-15-2023 take 1 tablet by [facility] every three hours as needed for pain oxyCODONE (ROXICODONE) immediate release tablet 5 mg PARoxetine hydrochloride 20 mg oral tablet (13 sources) Serotonin Reuptake Inhibitor Start: 06-21-2024 take 1 tablet by mouth once daily PARoxetine (Paxil) 20 MG tablet Indications: Major depressive disorder, recurrent episode, moderate degree (CMS/HCC) Take 1 tablet (20 mg) by mouth Daily 30 tablet 5 06/21/2024 Active Start: 10-16-2023 take 30 mg by mouth once daily 30 mg, oral, Daily, First dose on Thu10/16/23 at 0900, Look-alike/sound-alike medication - verify indication for use. Start: 02-23-2023 End: 06-21-2024 take 1 tablet by mouth in the morning PARoxetine (Paxil) 30 MG tablet Take 30 mg by mouth in the morning. 02/23/2023 06/21/2024 Discontinued (Reorder) phentermine hydrochloride 37.5 mg oral tablet (12 sources) Sympathomimetic Amine Anorectic Start: 11-10-2023 End: 07-21-2024 take 45-49.9 tablets by mouth before mealtime phentermine (Adipex-P) 37.5 MG tablet Indications: Class 3 severe obesity due to excess calories with serious comorbidity and body mass index (BMI) of 45.0 to 49.9 in adult (CMS/HCC) Take 1 tablet (37.5 mg) by mouth in the morning. Take before meals. 30 tablet 06/21/2024 07/21/2024 Active Start: 09-24-2023 End: 10-24-2023 take 37.5 mg by mouth once daily before breakfast 37.5 mg, oral, Every morning before breakfast, First dose on Tressa 10/15/23 at 1445, Look-alike/sound-alike medication - verify indication for use. Completed/Discontinued Medications Medication Drug Class(es) Dates Sig (Normalized) Sig (Original) ceFAZolin 2000 mg injection (1 source) Cephalosporin Antibacterial Start: 10-15-2023 End: 10-16-2023 take 2000 mg intravenously every eight hours ceFAZolin (ANCEF) IVPB 2000 mg/50 mL in iso-osmotic dextrose (40 mg/mL premix) celecoxib 200 mg oral capsule (1 source) Nonsteroidal Anti-inflammatory Drug Start: 10-15-2023 End: 10-15-2023 celecoxib (CeleBREX) capsule 200 mg tranexamic acid 650 mg oral tablet (1 source) Antifibrinolytic Agent Start: 10-15-2023 End: 10-15-2023 tranexamic acid (LYSTEDA) tablet 1,950 mg Problems Active Problems Problem Classification Problem Date Documented Da te Episodic/Chronic Alcohol-related disorders (1 source) Alcohol dependence, uncomplicated; Translations: [ALCOHOL DEPENDENCE UNCOMPLICATED] Onset: 03-05-2021 Chronic Anxiety disorders (10 sources) Generalized anxiety disorder; Translations: [Generalized anxiety disorder] Onset: 03-05-2021 09-03-2023 Chronic Cardiac dysrhythmias (4 sources) Paroxysmal atrial fibrillation; Translations: [Atrial fibrillation] Onset: 07-24-2022 Chronic Chronic kidney disease (8 sources) Chronic kidney disease, unspecified; Translations: [Chronic kidney disease stage 3] Onset: 03-05-2021 Resolved: 09-24-2023 09-24-2023 Chronic Diabetes mellitus without complication (10 sources) Prediabetes; Translations: [Prediabetes] Onset: 09-03-2023 09-03-2023 Episodic Disorders of lipid metabolism (3 sources) Dyslipidemia; Translations: [Hyperlipidemia, unspecified] Onset: 06-30-2024 06-21-2024 Chronic Essential hypertension (12 sources) Hypertensive disorder; Translations: [Essential (primary) hypertension] Onset: 09-03-2023 09-15-2023 Chronic Gastritis and duodenitis (7 sources) Chronic gastritis; Translations: [Unspecified chronic gastritis without bleeding] Onset: 09-03-2023 09-03-2023 Chronic Hemorrhoids (9 sources) Bleeding hemorrhoids; Translations: [Unspecified hemorrhoids] Onset: 06-21-2024 06-21-2024 Episodic Hypertension with complications and secondary hypertension (3 sources) Hypertensive chronic kidney disease with stage 1 through stage 4 chronic kidney disease, or unspecified chronic kidney disease; Translations: [Hypertensive heart disease without heart failure] Onset: 03-05-2021 Chronic Mood disorders (9 sources) Recurrent major depressive episodes, mild ; Translations: [Major depressive disorder, recurrent, mild] Onset: 09-24-2023 09-24-2023 Chronic Osteoarthritis (20 sources) Primary osteoarthritis, left shoulder; Translations: [Arthritis of left ankle] Onset: 10-17-2021 Chronic Other acquired deformities (7 sources) Equinus contracture of the ankle; Translations: [Contracture, left ankle] Onset: 09-03-2023 09-03-2023 Chronic Other aftercare (2 sources) Other supervisor intermediates (current) drug therapy; Translations: [[employer] CURRENT DRUG THERAPY] Onset: 03-05-2021 Episodic Other aftercare (7 sources) Long-term current use of drug therapy; Translations: [Other senior living (current) drug therapy] Onset: 06-21-2024 06-21-2024 Episodic Other connective tissue disease (2 sources) Presence of unspecified artificial hip joint; Translations: [Presence of unspecified artificial hip joint] Onset: 11-07-2023 Chronic Other connective tissue disease (6 sources) History of total hip arthroplasty; Translations: [Presence of left artificial hip joint] Onset: 10-18-2023 10-19-2023 Chronic Other connective tissue disease (1 source) Muscle wasting and atrophy, not elsewhere classified, unspecified site; Translations: [MUSCLE WASTING ATROPHY NEC UNS SITE] Onset: 01-17-2022 Episodic Other nervous system disorders (1 source) Chronic pain syndrome; Translations: [CHRONIC PAIN SYNDROME] Onset: 02-12-2021 Chronic Other nervous system disorders (1 source) Other chronic pain; Translations: [Other chronic pain] Onset: 12-03-2023 Chronic Other nutritional; endocrine; and metabolic disorders (1 source) Obesity, unspecified; Translations: [OBESITY UNSPECIFIED] Onset: 02-12-2021 Chronic Other nutritional; endocrine; and metabolic disorders (1 source) Body mass index 40+ - severely obese; Translations: [Body mass index (BMI) 40.0-44.9, adult] 09-15-2023 Chronic Other nutritional; endocrine; and metabolic disorders (4 sources) Morbid obesity; Translations: [Morbid (severe) obesity due to excess calories] Onset: 09-24-2023 09-24-2023 Chronic Other nutritional; endocrine; and metabolic disorders (2 sources) Morbid (severe) obesity due to excess calories; Translations: [Morbid (severe) obesity due to excess calories] Onset: 10-15-2023 Chronic Other nutritional; endocrine; and metabolic disorders (2 sources) Body mass index (BMI) 40.0-44.9, adult; Translations: [Body mass index (BMI) 40.0-44.9, adult] Onset: 09-18-2023 Chronic Other nutritional; endocrine; and metabolic disorders (7 sources) Severe obesity; Translations: [Class 3 severe obesity due to excess calories with serious comorbidity and body mass index (BMI) of 45.0 to 49.9 in adult ([facility])] Onset: 09-24-2023 06-21-2024 Chronic Other nutritional; endocrine; and metabolic disorders (1 source) Body mass index (BMI) 45.0-49.9, adult; Translations: [Body mass index (BMI) 45.0-49.9, adult] Onset: 06-30-2024 Chronic Residual codes; unclassified (2 sources) Bilateral lower limb edema; Translations: [Localized edema] Onset: 07-01-2024 07-01-2024 Episodic Spondylosis; intervertebral disc disorders; other back problems (14 sources) Spondylosis without myelopathy or radiculopathy, cervical region; Translations: [Other cervical disc degeneration, unspecified cervical region] Onset: 03-26-2021 Chronic Spondylosis; intervertebral disc disorders; other back problems (10 sources) Cervicalgia; Translations: [Low back pain] Onset: 02-04-2021 Episodic Thyroid disorders (12 sources) Hypothyroidism, unspecified; Translations: [Unspecified acquired hypothyroidism] Onset: 03-05-2021 09-03-2023 Chronic Unclassified (1 source) LOW BACK PAIN, UNSPECIFIED; Translations: [LOW BACK PAIN, UNSPECIFIED] Onset: 08-01-2021 Unclassified (1 source) CONTACT W/AND (SUSP) EXPOS COVID-19; Translations: [CONTACT W/AND (SUSP) EXPOS COVID-19] Onset: 03-26-2021 Unclassified (1 source) Establish Care Onset: 04-28-2024 Unclassified (1 source) Post-op Onset: 11-24-2023 Unclassified (1 source) S/p hip replacement [address] Keen Onset: 11-07-2023 Unclassified (1 source) Obesity, class 3; Translations: [Obesity, class 3] Onset: 06-30-2024 Unclassified (1 source) EMS Onset: 11-07-2023 Past or Other Problems Problem Classification Problem Date Documented Date Episodic/Chronic Abdominal pain (4 sources) Unspecified abdominal pain; Translations: [UNSPECIFIED ABDOMINAL PAIN] Onset: 03-01-2021 Episodic Acquired foot deformities (14 sources) Acquired abduction deformity of foot; Translations: [Valgus deformity, not elsewhere classified, left ankle] Onset: 09-03-2023 09-03-2023 Episodic Acute posthemorrhagic anemia (1 source) Acute posthemorrhagic anemia; Translations: [Acute posthemorrhagic anemia] Onset: 11-07-2023 Episodic Complications of surgical procedures or medical care (3 sources) Periprosthetic fracture around internal prosthetic left hip joint, subsequent encounter; Translations: [Periprosthetic fracture around other internal prosthetic joint, initial encounter] Onset: 11-07-2023 Episodic Other bone disease and musculoskeletal deformities (7 sources) Bone cyst of left ankle; Translations: [Other cyst of bone, left ankle and foot] Onset: 09-03-2023 09-03-2023 Episodic Other connective tissue disease (1 source) Other bursitis of elbow, right elbow; Translations: [OTHER BURSITIS OF ELBOW RIGHT ELBOW] Onset: 10-21-2021 Episodic Other connective tissue disease (7 sources) Dysfunction of posterior tibial tendon of left foot; Translations: [Posterior tibial tendinitis, left leg] Onset: 09-03-2023 09-03-2023 Episodic Other connective tissue disease (1 source) Pain in lower limb Onset: 11-07-2023 Episodic Other nervous system disorders (7 sources) Hip pain; Translations: [Other acute postprocedural pain] Onset: 10-18-2023 Resolved: 06-21-2024 10-19-2023 Episodic Other non-traumatic joint disorders (5 sources) Pain in right elbow; Translations: [PAIN IN RIGHT ELBOW] Onset: 07-25-2021 Episodic Other non-traumatic joint disorders (2 sources) Pain in left shoulder; Translations: [PAIN IN LEFT SHOULDER] Onset: 08-01-2021 Episodic Other non-traumatic joint disorders (7 sources) Chronic pain of left upper limb; Translations: [Pain in left shoulder] Onset: 09-03-2023 09-03-2023 Episodic Other non-traumatic joint disorders (7 sources) Chronic ankle pain; Translations: [Pain in left ankle and joints of left foot] Onset: 09-03-2023 09-03-2023 Episodic Screening and history of mental health and substance abuse codes (1 source) Personal history of nicotine dependence; Translations: [PERSONAL HISTORY OF NICOTINE DEPEND] Onset: 03-05-2021 Episodic Sprains and strains (7 sources) Sprain of deltoid ligament of ankle; Translations: [Sprain of deltoid ligament of unspecified ankle, sequela] Onset: 09-03-2023 09-03-2023 Episodic Results Test Name Value Interpretation Reference Range Facility BASIC METABOLIC PANLon 06-30 Anion gap [Moles/Vol] 15 mmol/L Normal 5-15 [facility] Comment on above: Performed By: #### C BCA, BMP #### [facility] ([id number]) [address], [address] [place] [address] Calcium [Mass/Vol] 8.4 mg/dL Low 8.5-10.5 [facility] Comment on above: Performed By: #### C BCA, BMP #### [facility] ([id number]) [address], [address] [place] [address] Chloride [Moles/Vol] 101 mmol/L Normal 98-109 [facility] Comment on above: Performed By: #### C BCA, BMP #### [facility] ([id number]) [address], [address] [facility] [place] [address] CO2 [Moles/Vol] 23 mmol/L Normal 22-32 [facility] Comment on above: Performed By: #### C TOOTIE, BMP #### [facility] ([id number]) [address], [address] [place] [address] Creatinine [Mass/Vol] 0.71 mg/dL Normal 0.40-1.00 [facility] Comment on above: Result Comment: METH OD TRACEABLE TO IDMS STANDARD Performed By: #### C TOOTIE, BMP #### [facility] ([id number]) [address], [address] [place] [address] eGFR (CKD-EPI) NON-RACE DEPENDENT >90 Normal >59 [facility] Comment on above: Result Comment: Reported eGFR is based on the CKD-EPI 2020 equation that does not use a race coefficient. Performed By: #### C TOOTIE, BMP #### [facility] ([id number]) [address], [address] [place] [address] Glucose [Mass/Vol] 136 mg/dL High 65-99 [facility] Comment on above: Performed By: #### C TOOTIE, BMP #### [facility] ([id number]) [address], [address] [place] [address] Potassium [Moles/Vol] 4.7 mmol/L Normal 3.5-5.0 [facility] Comment on above: Performed By: #### C TOOTIE, BMP #### [facility] ([id number]) [address], [address] [place] [address] Sodium [Moles/Vol] 139 mmol/L Normal 134-146 [facility] Comment on above: Performed By: #### C BCA, BMP #### [facility] ([id number]) [address], [address] [place] [address] Urea nitrogen [Mass/Vol] 5 mg/dL Normal 5-23 [facility] Comment on above: Performed By: #### C BCA, BMP #### [facility] ([id number]) [address], [address] [place] [address] CBC AND AUTO DIFFon 06-30-20 24 ABSOLUTE BASOPHIL 0.0 X10E9/L Normal 0.0-0.2 [facility] Comment on above: Performed By: #### C BCA, HA1C, BMP, 11442-7, LIVR, THYR #### [facility] ([id number]) [address], [address] [place] [address] ABSOLUTE NEUTROPHIL 5.0 X10E9/L Normal 1.5-6.6 [facility] Comment on above: Performed By: #### C BCA, HA1C, BMP, 07155-4, LIVR, THYR #### [facility] ([id number]) [address], [address] [place] [address] Basophils/100 WBC (Bld) 0.4 % Normal [facility] Comment on above: Performed By: #### C BCA, HA1C, BMP, 07171-1, LIVR, THYR #### [facility] ([id number]) [address] [place] [address] Eosinophils (Bld) [#/Vol] 0.0 10*3/uL Normal 0.0-0.4 [facility] Comment on above: Performed By: #### C BCA, HA1C, BMP, 13115-0, LIVR, THYR #### [facility] ([id number]) [address] [place] [address] Eosinophils/100 WBC (Bld) 0.6 % Normal [facility] Comment on above: Performed By: #### C BCA, HA1C, BMP, 69982-4, LIVR, THYR #### [facility] ([id number]) [address], [address] [place] [address] Erythrocyte distribution width (RBC) [Ratio] 13.9 % Normal 11.5-15.0 [facility] Comment on above: Performed By: #### C BCA, HA1C, BMP, 73326-1, LIVR, THYR #### [facility] ([id number]) [address], [address] [place] [address] Hematocrit (Bld) [Volume fraction] 34.1 % Low 35-47 [facility] Comment on above: Performed By: #### C BCA, HA1C, BMP, 88661-4, LIVR, THYR #### [facility] ([id number]) [address], [facility] [address] [place] [address] Hemoglobin (Bld) [Mass/Vol] 11.2 g/dL Low 11.7-15.5 [facility] Comment on above: Performed By: #### C BCA, HA1C, BMP, 43519-1, LIVR, THYR #### [facility] ([id number]) [address], [address] [place] [address] Lymphocytes (Bld) [#/Vol] 0.9 10*3/uL Low 1.0-3.5 [facility] Comment on above: Performed By: #### C BCA, HA1C, BMP, 84564-4, LIVR, THYR #### [facility] ([id number]) [address] [address] [place] [address] Lymphocytes/100 WBC (Bld) 14.0 % Normal [facility] Comment on above: Performed By: #### C BCA, HA1C, BMP, 82943-1, LIVR, THYR #### [facility] ([id number]) [address], [facility] [address] [place] [address] MCH (RBC) [Entitic mass] 33.2 pg Normal 27-34 [facility] Comment on above: Performed By: #### C BCA, HA1C, BMP, 62912-6, LIVR, THYR #### [facility] ([id number]) [address], [address] [place] [address] MCHC (RBC) [Mass/Vol] 32.8 g/dL Normal 32-36 [facility] Comment on above: Performed By: #### C BCA, HA1C, BMP, 98347-5, LIVR, THYR #### [facility] ([id number]) [address], [address] [place] [address] MCV (RBC) [Entitic vol] 101 fL High 80-100 [facility] Comment on above: Performed By: #### C BCA, HA1C, BMP, 27303-4, LIVR, THYR #### [facility] ([id number]) [address], [address] [place] [address] Monocytes (Bld) [#/Vol] 0.6 10*3/uL Normal 0-0.9 [facility] Comment on above: Performed By: #### C BCA, HA1C, BMP, 32488-7, LIVR, THYR #### [facility] ([id number]) [address], [address] [place] [address] Monocytes/100 WBC (Bld) 9.6 % Normal [facility] Comment on above: Performed By: #### C BCA, HA1C, BMP, 49912-8, LIVR, THYR #### [facility] ([id number]) [address], [address] [place] [address] Neutrophils/100 WBC (Bld) 75.4 % Normal [facility] Comment on above: Performed By: #### C BCA, HA1C, BMP, 18007-1, LIVR, THYR #### [facility] ([id number]) [address], [address] [place] [address] Platelet mean volume (Bld) [Entitic vol] 7.0 fL Normal 7-12 [facility] Comment on above: Performed By: #### C BCA, HA1C, BMP, 49361-2, LIVR, THYR #### [facility] ([id number]) [address], [facility] [address] [place] [address] Platelets (Bld) [#/Vol] 296 10*3/uL Normal 150-450 [facility] Comment on above: Performed By: #### C BCA, HA1C, BMP, 91634-2, LIVR, THYR #### [facility] ([id number]) [address], [facility] [address] [place] [address] RBC COUNT 3.36 X10E12/L Low 3.80-5.20 [facility] Comment on above: Performed By: #### C BCA, HA1C, BMP, 23301-3, LIVR, THYR #### [facility] ([id number]) [address], [address] [address] WBC (Bld) [#/Vol] 6.7 10*3/uL Normal 4.0-11.0 [facility] Comment on above: Performed By: #### C BCA, HA1C, BMP, 46543-7, LIVR, THYR #### [facility] ([id number]) [address], [address] [address] CBC W Auto Differential pane l (Bld)on 06-30-2024 ABSOLUTE BASOPHIL 0 [facility] Comment on above: PERFORMED AT [facility] [address] [place] [address] Basophils/100 WBC (Bld) 0.4 % [facility] Eosinophils (Bld) [#/Vol] 0 10*3/uL [facility] Eosinophils/100 WBC (Bld) 0.6 % [facility] Erythrocyte distribution width (RBC) [Ratio] 13.9 % 11.5 - 15.0 % [facility] Hematocrit (Bld) [Volume fraction] 34.1 % Low 35 - 47 % [facility] Hemoglobin (Bld) [Mass/Vol] 11.2 g/dL Low 11.7 - 15.5 g/dL [facility] Interpretation and review of laboratory results Abnormal [facility] Lymphocytes (Bld) [#/Vol] 0.9 10*3/uL Low [facility] Lymphocytes/100 WBC (Bld) 14 % [facility] MCH (RBC) [Entitic mass] 33.2 pg 27 - 34 pg [facility] MCHC (RBC) [Mass/Vol] 32.8 g/dL 32 - 36 g/dL [facility] MCV (RBC) [Entitic vol] 101 fL High 80 - 100 fL [facility] Monocytes (Bld) [#/Vol] 0.6 10*3/uL [facility] Monocytes/100 WBC (Bld) 9.6 % [facility] Neutrophils (Bld) [#/Vol] 5 10*3/uL [facility] Neutrophils/100 WBC (Bld) 75.4 % [facility] Platelet mean volume (Bld) [Entitic vol] 7 fL 7 - 12 fL [facility] Platelets (Bld) [#/Vol] 296 10*3/uL [facility] RBC (Bld) [#/Vol] 3.36 10*6/uL Low [facility] WBC corrected for nucl RBC Auto (Bld) [#/Vol] 6.7 [facility] HGB A1C (GLYCO-HGB)on 2023 Glucose [Mass/Vol] 123 mg/dL Normal [facility] Comment on above: Performed By: #### C BCA, HA1C, BMP, 59515-6, LIVR, THYR #### [facility] ([id number]) [address] [place] [address], [address] [place] [address] HbA1c (Bld) [Mass fraction] 5.9 % High 4.4-5.6 [facility] Comment on above: Result Comment: NOTE ADA Guidelines Result HgbA1c Normal : less than 5.7 % Prediabetes : 5.7 % to 6.4 % Diabetes : > 6.4 % Use with caution in patients with abnormal hemoglobin variants as the half-life of red blood cells and in vivo glycation rates are affected. Performed By: #### C BCA, HA1C, BMP, 42980-5, LIVR, THYR #### [facility] ([id number]) [address], [address] [place] [address] LIVER PANELon 06-30-2024 Albumin [Mass/Vol] 3.5 g/dL Normal 3.2-5.3 [facility] Comment on above: Performed By: #### C BCA, BMP #### [facility] ([id number]) [address], [address] [place] [address] ALP [Catalytic activity/Vol] 98 U/L Normal 39-130 [facility] Comment on above: Performed By: #### C TOOTIE, BMP #### [facility] ([id number]) [address], [address] [place] [address] ALT [Catalytic activity/Vol] 22 U/L Normal 0-31 [facility] Comment on above: Performed By: #### C BCA, BMP #### [facility] ([id number]) [address], [address] [place] [address] AST [Catalytic activity/Vol] 42 U/L High 0-41 [facility] Comment on above: Performed By: #### C BCA, BMP #### [facility] ([id number]) [address], [address] [place] [address] Bilirubin [Mass/Vol] 0.4 mg/dL Normal 0.3-1.2 [facility] Comment on above: Performed By: #### C BCA, BMP #### [facility] ([id number]) [address], [address] [place] [address] Bilirubin.direct [Mass/Vol] 0.1 mg/dL Normal 0.0-0.4 [facility] Comment on above: Performed By: #### C BCA, BMP #### [facility] ([id number]) [address], [address] [place] [address] Protein [Mass/Vol] 6.2 g/dL Normal 6.0-8.0 [facility] Comment on above: Performed By: #### Ned SOMMERS, BMP #### [facility] ([id number]) [address], [address] [place] [address] Lipid 1996 panelon 4 Cholesterol [Mass/Vol] 229 mg/dL High 150-200 [facility] Comment on above: Performed By: #### Ned SOMMERS, BMP #### [facility] ([id number]) [address], [address] [place] [address] Cholesterol in HDL [Mass/Vol] 53 mg/dL Normal >39 [facility] Comment on above: Result Comment: HDL <40 mg/dL - High Risk HDL > or = 40mg/dL- Desirable HDL >60 mg/dL - Negative Risk Performed By: #### Ned SOMMERS, BMP #### [facility] ([id number]) [address], [address] [place] [address] Cholesterol in LDL [Mass/Vol] 126 mg/dL Normal <130 [facility] Comment on above: Result Comment: LDL <100 mg/dL - Desirable LDL >160 mg/dL - High Risk Performed By: #### Ned SOMMERS, BMP #### [facility] ([id number]) [address], [address] [place] [address] Cholesterol in VLDL [Mass/Vol] 50 mg/dL High 0-30 [facility] Comment on above: Performed By: #### Ned SOMMERS, BMP #### [facility] ([id number]) [address], [address] [place] [address] CHOLESTEROL:HDL 4.3 Normal 1.0-5.0 [facility] Comment on above: Performed By: #### C BCA, BMP #### [facility] ([id number]) [address], [address] [place] [address] Triglyceride [Mass/Vol] 252 mg/dL High 27-150 [facility] Comment on above: Performed By: #### Ned BCA, BMP #### [facility] ([id number]) [address], [address] [place] [address] THYROID PROFILEon 06-30-2024 Free T4 [Mass/Vol] 0.60 ng/dL Low 0.61-1.60 [facility] Comment on above: Performed By: #### Ned SOMMERS, BMP #### [facility] ([id number]) [address], [address] [place] [address] TSH 4.99 uIU/mL High 0.49-4.67 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 No acute processes fracture or dislocation. No evidence of hardware competition. 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 * No acute fracture identified. No dislocation. Finalized by Alexis Meade MD on 01/23/2024 7:27 AM Normal [facility] XR SHOULDER LT MIN 2 VWSon 0 01-22-2024 XR SHOULDER LT MIN 2 VWS XR SHOULDER LT MIN 2 VWS XR SHOULDER LT MIN 2 VWS History: Chronic left shoulder pain Findings: There is no fracture, dislocation, or destructive lesion. Impression: * No acute findings. Advanced glenohumeral arthritis sclerosis of the glenoid and humeral head. Findings raise possibility of avascular necrosis with superimposed arthritis. Process could be further characterized by MRI if indicated clinically. Finalized by Kiran Hdz MD on 01/22/2024 6:08 AM Normal [facility] XR BONE LENGTH STUDYon 11-29 XR BONE LENGTH STUDY XR BONE LENGTH STUD Y CLINICAL INFORMATION:S/P revision of total hip . Mechanical: [place] and leg length. COMPARISON: None. PROCEDURE: AP upright scanogram of the bilateral lower extremities was obtained. Examination performed for evaluation of alignment. IMPRESSION: * Bilateral hip arthroplasties are present. Fracture lucency remains visualized on the left with cerclage wires. Degenerative changes of the knee joints. * There is 2 degrees varus alignment of the right knee. There is 3 degrees varus alignment of the left knee. Left ankle tibiotalar arthroplasty. * Right lower extremity measures 78.8 cm. Left lower extremity measures 78.0 cm. Finalized by Lan Claire MD on 11/30/2023 9:32 AM Normal [facility] XR HIP LT 2-3 VIEWS W OR WO PELVISon 11-25-2023 XR HIP LT 2-3 VIEWS W OR WO PELVIS XR HIP LT 2-3 VIEWS W OR WO PELVIS Comparison November 08 History: S/P revision of total hip XR HIP LT 2-3 VIEWS W OR WO PELVIS Impression: 1. Prosthesis shows stable cerclage wires transfixing periprosthetic fracture of proximal femur, with otherwise no radiographic evidence for complication. No acute findings. Finalized by Kiran Hdz MD on 11/25/2023 5:53 PM Normal [facility] Coding Summaryon 11-24-2023 Coding Summary HTMLBase 64 VtixoelsZFl3sQq+PGhlYW Q+FC9HXVQwD05jfYUywM8g A6VQUVmODfppYQMRLJaRQk LqkhEgMC5lnYFuLLOy IC8+NM7sJXNlPjotfLEsb1 G5qZQ9Z54rtt7aQMrkrOA7 NPSzFmJxblbfq2mscBy0ZV cuNmluOyBt KDFsgI79GFT1gM66Sj10gN HcpMPkl9ugeAb0RaCnIIQp UIT6zLuyATbjl8LrIKLbL8 1hxHAvu0V1 OCTpqNsnoXOdWmPdkNK6yY 7oKOfcicimt4sxyetrCns5 hf98iKKzl7A3cNS0Q9Eaxs U3SUNsqEAf VjwmmRTPcS7zmnmop4inpl nqDqGlKHOgQYo5UVz0WXIc pIdvSyQxUY83EVI5ZDXpzo SqB7QbEDCy rIucMsN2t9C6Lj5HW6HJHq nkQ0DZTGVUYFiqdHE+PC90 kc09D7YyEnrqFud4RVHeTT M8bDF6kH6i ZJItACiqv0A7wSX0V6Fqpf Xnkq3gq4vuHEYaQQfqX50l qOLeh5U3RIAezTJ7YZOwmW egQqIqyZ64 Oyc+AYPfsOzem2XlFjggj1 tjp5gtiEq0ZvasGTVkwjZt nNkzUXZ2d8ObAs5xYJJogC D0eJM4oB5r AhAeDfS0WQdzL239WrAbzV DkCfurG51aD5VznCX+PHRy Lez7VDRrkLyiTN4lY8FhCP RpbmctbGVm wLqwMV4wFZBrcykzIRGjlQ 6xTTLpM4z6UlFfVsR0IKrz D3PsRSWlqlsoHj05jO9wAw OkItD7PYfc F0LcziA6BHPjsGFbVTbjZN W5V77zs6T2UQZnQEOoMJF6 aDN4jS2tsXsyrgtndGNraV sgdmVydGlj EFguLLxfJ181YEKrjLliEp NvZGluZyBEYXRlOiAgMDQv MDIvMjAyNDwvdGQ+PHRkIH S0qXteAVBc yHUqBJojNl7evWfnhIppRM 6gOPCryjjdQCHhuS0yMKGv oIPqwKgjHI0qVCWzdxvhg9 52JaMbZDN8 HJCzgDHqR5KmnZ2zFvVcIQ ViSFHgM1QkiWMkOOtjF355 VXheOcL6YPZxlyZxY6QzSG FsaWduOiB0 l6Z0Su4Ot3PmegdsG9IqsV UyBtRpAmvdIPr8L6RqEurd dHI+LB30GKVxJZ33BXe7AI Q7cZlyXXfr TFNwE2TjdQ9dPoNjGPAfHH RkOyc+PHRhYmxlIHdpZHRo ZAprOCNgHpYrhMzoND8pGx 9yZGVyLWNv aXtmzADrIsVyj3lvDFXmTL deMH0gxHzpL2CokAS1SJCr j5j9Rx83O08pD8RvqUM+PG HlgTO5xLT2 yU1pEcLxWyP6HJawL686Pv IxgHQoQiwqa0jyu3unyWn0 KjG9IQNcyuAwkTqvMWR1i4 RoEc90M52o IHdpZHRoPSIxNSUiIHZhbG dsyd7kvA7aQx5+PGNvbCB3 mJN2lP7zXvLwZrC9QOirL2 49InRvcCIv Ybylp9nyv1bpiTf6KjGaQH UrrnJghJxoNWI2q0AvKo65 X9UxdUkja7NqGpt6bx57fQ Slh3G2fBQ6 D5WsQMOqjvpboDJtpZsuZD 9iZQHiasxgUJWqnX6mCRRx F6u6KqOoGaI7OQymN1Gssk G8WEQloPDz FYTpgIRYjH9rmocue3dpgt moTnVnICRpFOh0MVw0LKBd rIclRsCbYZG9CcE2DVH0rU AycK8ywFhy vkfseX9rVwx+QUJ5nEZzcW ZXSD7uImdvbXW+PHRkIHN0 rUwcOKreQPVchZ2hVOIpJ9 l7HkLkGuW3 FAkoL6IbdaZ8KQBdtICjSF JsaMKTuQ7qqeqlr6mnjfmq SpPdVAVhUKs3KJf5CQYtcD duOiBsZWZ0 UvF3WMO5sUFuoA7psBijij dcnO3hRnd+QmlydGggRGF0 TQz4R9FeSaw7LRFpeWpeSY 0ncGFkZGlu Yf2niRgnnCyrSP6bUVCgky drv245UaGpg8zyHRWcqNVf RMvxIHR0W22lj6A7EVJyHH OlBTA0aGE8 mF2ezJjycumdyVFruWbeye QovHlmNAxhTNsaR064DHTd vGlnYbFsJZp3P1OwFod6LW NosDswOI5p sTAcXFrmDr1wyShgmFgbSA 4vKRUlpbvsf200HqTej0ns IAZjyEUlMBjhCGJ6N64qp8 J6IIKxXUZi WSM6bBG5vD3mbUdkayhbsU VmdDsgdmVydGljYWwtYWxp F159VCYehFtvZfXewJw3Z1 WoVrz2VEZm rQnePS8izIQkHJxcDf1xeC uhiQstPH1dOBKzyzwcf581 PrBmj8fdRFGwkAEyKKbpOA H4M50fu3P1 ONShXJQaGWT8lCB7fR5jiU lnbjogbGVmdDsgdmVydGlj LGzjAMmfG153MFSbnNxhJw BhdGllbnQg IQczBNy4G6YcKsamdIA+PC 82BTLqDT29rDMqnYHxq2ko xQl2WkYmAPHkZOW0rBzrFX tom2CsYWQq W29zdZOgw5L2YEPkhCaalU GxQiYpwGO7iN3sHCgzveve x0tbevqeGwoep4zzmv89oV 65Q72cLFhg ZHRoPSIzMCUiIHZhbGlnbj 1suY4zRw6+RBWciOB3fWY7 hA7rJCGgTzG8UIshA486Cl RvcCIvPjxj e3ebs4aoqAz8GlO8TAXbso QzzXykPZJ6x2KlNb67N51c IHdpZHRoPSIyMCUiIHZhbG phtf1deX6j Ii8+FXCggWY2nHG9gC0hRc WaOoY9BDvtF605ShFofWLw WtcrP66jW0HljSC+PHRyPj h6DFMerKfb UA7slZWyUSgwJh4dVGY8Md PhWmFiSTupD5JuMYGtkaqh bgmvfKG4MPZgXGHqsR48Nr 9udDogMTBw fLQAiZ1vozkvc1svcxdkWz HqBAKiRKf1JSu5EHLymPaj GkRpPLT1ElU0JJC4vXJrmW 1hbGlnbjog zX7uJ3ReQWSlscoiGe65iK 7rFxBnJkH5CVwjLwg+U0xB VUdIVEVSLCBQQVRSSUNJQT wvdGQ+PHRk KZP8wVksZNihHPIvpE9aSZ NuB7r7TtBdXyE9CBzqW8Rj AMLyjqsqAo24pN6kIbHaWe R0LPyhG2Ak ogV6BYMxhCWwZJilNDO4L6 5ze2L4HNDmHVIuXOX8aSS1 mD8roRmnwdwqoUSfvEvwew VydGljYWwt GSibZ254WIPpxXjoAgSsBy GpUgJ8Nbl0U2VfAxj5WHNx xIiwDP1ziMJjBKonGt7koO dqtRydWL1w MDNwmfwxAAZeaR8mJKOofT DdmHyzPH3aPAFqyqecl269 PsKmBBL3IPQpjJUsC7PbeL 9yOiAjMDAw EMBtK7HwsHIhQVfpY816XB hwLyI9CSUilkFdZ9GnTKEx dWjmOsE4u7I6Xe60GcFRQQ FyczwvdGQ+ CNRsREB9nKvgAGsfWXUfbS 6rBWWmA2l8QpQnXxQ1LVwk Q7XyMEHftgjnVr90zU2cPz DeGnD3YCzb W4VqdiI8KCEpySKcMBfhIE Y8T12ki0Q9ZGCtEOQxAJP8 aQA5sZ6thTjfhobovSDfiG sgdmVydGlj GTchUFfbC157RKIhqYvpDs ZFTUFMRTwvdGQ+PHRkIHN0 rIxeWRzyZETdeG3lSFXkO4 j9SjWzVvL1 GAocH4AvTHNylxonLp08iX 0eUzSsJaJ5YOlgV1NigeQ5 HWWclRXgOTiqVKL7N79rz2 W7OTEaKEHd WNI9fBL1dS0guJsfgcfepN VmdDsgdmVydGljYWwtYWxp J152MEUizQanFt0CNY74IK 77I6ShCzsg dGFibGU+PHRhYmxlIHdpZH ViPXqjKPAvDoEgcLrbUF2y Kb5aBLKuFNOigJqlkUQmPl Lgd5wiCIBo MPmsTQ6muQyeE0RkhML1DO Sor8f9Sr60M36jE5CuqGD+ CPFstNS4iZJ4eG3vQzChPh M7MUkpB990 DpDgdCEcSbvls8azs9axfB z4JjIeNRVwvwJhmJidUPF5 h5DcHc35I27vXTwnDDIzSG IyMCUiIHZh oAjtwq3byD6uTi3+PGNvbC V6qZR0kW3vWfCfRiV2OJxo Q648PeCktJRcAuluB62iT4 JvdXA+PHRy Ima3CDVsxCngJH5eaVUiJZ poDm5nWRE1BdLaPhVlJGsz W0BzNSFdeokhdnbvsCP3TW UgIDGieH66 Oj5weEamMk3tBVLyGEL9VH JbsTDqT6UvyL6gBeFjJANc OLFqZ6KfnFLzCWvwX017OK eoIjB6AVRm coCvX4HdRMRokIhcDjX2x9 K5Bs8FpRfpgWNeSS7dVgDu BOx3D1UzPnu0UPDibLaoOE 0ncGFkZGlu Me9pnImjjZepLY3gKYOwkh pva121OyFmh6nvEDCfgEYj FBvaKRJ1N71hm3C0XTWpYN DdVMV6jSB8 kR3vwAiasxhdfZNgnZjmcz TdsEeyQPqxAMypX232UUYj tVqdDmKORpz4O6LcEqf1ZX RivOifXA2a aBKgKOosHn9jfKqvuOzdWZ 4iSPCvdpbhn729PsKuo1rd NQAkvFAlBZedYQX1Q22np0 H9NRXvKDTp CIC8zBY3lK1gfJgekbhndJ VmdDsgdmVydGljYWwtYWxp Y726XMSdbBorXw7XUap4M0 ItHtu4VAFo hUsaQX6dzPOdLGwtRc6brT ijoRdqIO0hMGOhmeako881 EyRqm7aqQNKoyLDxBAqsQF W2N96nv8C5 QOCzCBWrVUD2dZL2aS4myD lnbjogbGVmdDsgdmVydGlj FIjhTKbvI133MXGaiLqzCl BheWVyOjwv dGQ+TY13me15D3YzPgtwNx x0TKTiZKS8aCO2eO3sNEXi TFopq4K1qTZ4G3BpxnSegh 4ly8opMQYp ZTo (more content not included)... Normal [facility] H&Hon 11-18-2023 Hematocrit (Bld) [Volume fraction] 29.1 % Low 33.7-40.4 [facility] Comment on above: Performed By: #### 5 [id number] #### [facility] (DEFAULT) [address] [place] [id number] Hemoglobin (Bld) [Mass/Vol] 9.3 g/dL Low 11.3-15.9 [facility] Comment on above: Performed By: #### 5 [id number] #### [facility] (DEFAULT) [address] [place] [address] Provider Orderson 11-18-2023 Provider Orders [id number] 32 [id number] Normal [facility] BASIC METABOLIC PANLon 11-13 Anion gap [Moles/Vol] 7 mmol/L Normal 5-15 [facility] Comment on above: Performed By: #### 6 793-4, 00104-4, 2157-01, BMP, FEPR, CBCA #### [facility] ([id number]) [address], [address] [place] [address] Calcium [Mass/Vol] 8.4 mg/dL Low 8.5-10.5 [facility] Comment on above: Performed By: #### 6 793-4, 59337-2, 2157-01, BMP, FEPR, CBCA #### [facility] ([id number]) [address], [address] [place] [address] Chloride [Moles/Vol] 103 mmol/L Normal 98-109 [facility] Comment on above: Performed By: #### 6 793-4, 27332-4, 2156-6, BMP, FEPR, CBCA #### [facility] ([id number]) [address], [address] [place] [address] CO2 [Moles/Vol] 29 mmol/L Normal 22-32 [facility] Comment on above: Performed By: #### 6 793-4, 67980-8, 2156-6, BMP, FEPR, CBCA #### [facility] ([id number]) [address], [address] [place] [address] Creatinine [Mass/Vol] 0.64 mg/dL Normal 0.40-1.00 [facility] Comment on above: Result Comment: METH OD TRACEABLE TO IDMS STANDARD Performed By: #### 6 793-4, 53250-6, 6, BMP, FEPR, CBCA #### [facility] ([id number]) [address], [address] [place] [address] eGFR (CKD-EPI) NON-RACE DEPENDENT >90 Normal >59 [facility] Comment on above: Result Comment: Reported eGFR is based on the CKD-EPI 2020 equation that does not use a race coefficient. Performed By: #### 6 793-4, 05126-5, 2156-6, BMP, FEPR, CBCA #### [facility] ([id number]) [address], [address] [place] [address] Glucose [Mass/Vol] 109 mg/dL High 65-99 [facility] Comment on above: Performed By: #### 6 793-4, 43027-3, 2156-6, BMP, FEPR, CBCA #### [facility] ([id number]) [address], [address] [place] [address] Potassium [Moles/Vol] 4.1 mmol/L Normal 3.5-5.0 [facility] Comment on above: Performed By: #### 6 793-4, 47984-1, 2156-6, BMP, FEPR, CBCA #### [facility] ([id number]) [address], [address] [place] [address] Sodium [Moles/Vol] 139 mmol/L Normal 134-146 [facility] Comment on above: Performed By: #### 6 793-4, 23139-9, 2156-6, BMP, FEPR, CBCA #### [facility] ([id number]) [address], [address] [address] Urea nitrogen [Mass/Vol] 7 mg/dL Normal 5-23 [facility] Comment on above: Performed By: #### 6 793-4, 59266-1, 2156-6, BMP, FEPR, CBCA #### [facility] ([id number]) [address], [address] [address] CBC AND AUTO DIFFon 11-14-19 24 ABSOLUTE BASOPHIL 0.1 X10E9/L Normal 0.0-0.2 [facility] Comment on above: Performed By: #### 6 793-4, 44017-2, 2156-6, BMP, FEPR, CBCA #### [facility] ([id number]) [address], [address] [address] Band form neutrophils/100 WBC (Bld) 5.0 % Normal [facility] Comment on above: Performed By: #### 6 793-4, 67332-3, 2156-6, BMP, FEPR, CBCA #### [facility] ([id number]) [address], [address] [address] Basophils/100 WBC (Bld) 1.0 % Normal [facility] Comment on above: Performed By: #### 6 793-4, 12638-2, 215-6, BMP, FEPR, CBCA #### [facility] ([id number]) [address] [address] [place] [address] Eosinophils (Bld) [#/Vol] 0.1 10*3/uL Normal 0.0-0.4 [facility] Comment on above: Performed By: #### 6 793-4, 23923-0, 6, BMP, FEPR, CBCA #### [facility] ([id number]) [address], [facility] [address] [place] [address] Eosinophils/100 WBC (Bld) 1.0 % Normal [facility] Comment on above: Performed By: #### 6 793-4, 16128-0, 2157-01, BMP, FEPR, CBCA #### [facility] ([id number]) [address] [address] Erythrocyte distribution width (RBC) [Ratio] 15.1 % High 11.5-15.0 [facility] Comment on above: Performed By: #### 6 793-4, 37208-3, 2157-01, BMP, FEPR, CBCA #### [facility] ([id number]) [address] [address] [place] [address] Hematocrit (Bld) [Volume fraction] 22.4 % Low 35-47 [facility] Comment on above: Performed By: #### 6 793-4, 38924-0, 2157-01, BMP, FEPR, CBCA #### [facility] ([id number]) [address] [address] Lymphocytes (Bld) [#/Vol] 1.7 10*3/uL Normal 1.0-3.5 [facility] Comment on above: Performed By: #### 6 793-4, 51370-7, 6, BMP, FEPR, CBCA #### [facility] ([id number]) [address] [address] [place] [address] Lymphocytes/100 WBC (Bld) 23.0 % Normal [facility] Comment on above: Performed By: #### 6 793-4, 84162-5, 2156-6, BMP, FEPR, CBCA #### [facility] ([id number]) [address] [address] MCH (RBC) [Entitic mass] 30.4 pg Normal 27-34 [facility] Comment on above: Performed By: #### 6 793-4, 99189-4, 2156-6, BMP, FEPR, CBCA #### [facility] ([id number]) [address] [address] MCHC (RBC) [Mass/Vol] 31.9 g/dL Low 32-36 [facility] Comment on above: Performed By: #### 6 793-4, 21491-7, 2156-6, BMP, FEPR, CBCA #### [facility] ([id number]) [address] [address] MCV (RBC) [Entitic vol] 95 fL Normal 80-100 [facility] Comment on above: Performed By: #### 6 793-4, 86539-8, 2156-6, BMP, FEPR, CBCA #### [facility] ([id number]) [address], [address] [address] Metamyelocytes/100 WBC (Bld) 1.0 % Normal [facility] Comment on above: Performed By: #### 6 793-4, 53944-9, 2156-6, BMP, FEPR, CBCA #### [facility] ([id number]) [address] [address] Monocytes (Bld) [#/Vol] 0.7 10*3/uL Normal 0-0.9 [facility] Comment on above: Performed By: #### 6 793-4, 28159-0, 2156-6, BMP, FEPR, CBCA #### [facility] ([id number]) [address], [address] [place] [address] Monocytes/100 WBC (Bld) 10.0 % Normal [facility] Comment on above: Performed By: #### 6 793-4, 99550-2, 2156-6, BMP, FEPR, CBCA #### [facility] ([id number]) [address], [facility] [address] [place] [address] MYELOCYTE 2.0 % Normal [facility] Comment on above: Performed By: #### 6 793-4, 33931-4, 2156-6, BMP, FEPR, CBCA #### [facility] ([id number]) [address], [facility] [address] [place] [address] Neutrophils (Bld) [#/Vol] 4.5 10*3/uL Normal 1.5-6.6 [facility] Comment on above: Performed By: #### 6 793-4, 87822-2, 6, BMP, FEPR, CBCA #### [facility] ([id number]) [address], [facility] [address] [place] [address] NUCLEATED RBC 2.0 /100 WBC High 0.0-1.0 [facility] Comment on above: Performed By: #### 6 793-4, 40604-7, 2156-6, BMP, FEPR, CBCA #### [facility] ([id number]) [address], [facility] [address] [place] [address] Platelet mean volume (Bld) [Entitic vol] 7.2 fL Normal 7-12 [facility] Comment on above: Performed By: #### 6 793-4, 69412-0, 2156-6, BMP, FEPR, CBCA #### [facility] ([id number]) [address], [address] [place] [address] Platelets (Bld) [#/Vol] 408 10*3/uL Normal 150-450 [facility] Comment on above: Performed By: #### 6 793-4, 14712-3, 2157-6, BMP, FEPR, CBCA #### [facility] ([id number]) [address], [facility] [address] [place] [address] POLYCHROMASIA 1+ Abnormal NONE [facility] Comment on above: Performed By: #### 6 793-4, 24192-8, 215-6, BMP, FEPR, CBCA #### [facility] ([id number]) [address], [facility] [address] [place] [address] RBC COUNT 2.35 X10E12/L Low 3.80-5.20 [facility] Comment on above: Performed By: #### 6 793-4, 80438-2, 215-6, BMP, FEPR, CBCA #### [facility] ([id number]) [address], [address] [address] SEG NEUTROPHIL 57.0 % Normal [facility] Comment on above: Performed By: #### 6 793-4, 59656-1, 2157-6, BMP, FEPR, CBCA #### [facility] ([id number]) [address], [address] [place] [address] TEARDROP 1+ Abnormal NONE [facility] Comment on above: Performed By: #### 6 793-4, 45704-1, 2157-6, BMP, FEPR, CBCA #### [facility] ([id number]) [address], [address] [place] [address] WBC (Bld) [#/Vol] 7.3 10*3/uL Normal 4.0-11.0 [facility] Comment on above: Performed By: #### 6 793-4, 46491-4, 2156-6, BMP, FEPR, CBCA #### [facility] ([id number]) [address], [address] [place] [address] HGB AND HCTon 11-14-2023 Hematocrit (Bld) [Volume fraction] 21.8 % Low 35-47 [facility] Comment on above: Performed By: #### 6 793-4, 89955-5, 2156-6, BMP, FEPR, CBCA #### [facility] ([id number]) [address], [address] [place] [address] Hemoglobin (Bld) [Mass/Vol] 7.1 g/dL Low 11.7-15.5 [facility] Comment on above: Performed By: #### 6 793-4, 64339-0, 2156-6, BMP, FEPR, CBCA #### [facility] ([id number]) [address], [address] [place] [address] MAGNESIUMon 11-14-2023 Magnesium [Mass/Vol] 1.9 mg/dL Normal 1.8-2.6 [facility] Comment on above: Performed By: #### 6 793-4, 93466-7, 6, BMP, FEPR, CBCA #### [facility] ([id number]) [address], [address] [place] [address] BASIC METABOLIC PANLon 11-12 Anion gap [Moles/Vol] 9 mmol/L Normal 5-15 [facility] Comment on above: Performed By: #### 6 793-4, 01111-7, 2156-6, BMP, FEPR, CBCA #### [facility] ([id number]) [address], [address] [place] [address] Calcium [Mass/Vol] 8.4 mg/dL Low 8.5-10.5 [facility] Comment on above: Performed By: #### 6 793-4, 15927-3, 2156-6, BMP, FEPR, CBCA #### [facility] ([id number]) [address], [address] [place] [address] Chloride [Moles/Vol] 102 mmol/L Normal 98-109 [facility] Comment on above: Performed By: #### 6 793-4, 09533-2, 2156-6, BMP, FEPR, CBCA #### [facility] ([id number]) [address], [address] [place] [address] CO2 [Moles/Vol] 28 mmol/L Normal 22-32 [facility] Comment on above: Performed By: #### 6 793-4, 34559-9, 2157-01, BMP, FEPR, CBCA #### [facility] ([id number]) [address], [address] [place] [address] Creatinine [Mass/Vol] 0.59 mg/dL Normal 0.40-1.00 [facility] Comment on above: Result Comment: METH OD TRACEABLE TO IDMS STANDARD Performed By: #### 6 793-4, 65612-8, 2157-01, BMP, FEPR, CBCA #### [facility] ([id number]) [address], [address] [place] [address] eGFR (CKD-EPI) NON-RACE DEPENDENT >90 Normal >59 [facility] Comment on above: Result Comment: Reported eGFR is based on the CKD-EPI 2021 equation that does not use a race coefficient. Performed By: #### 6 793-4, 98643-6, 2156-6, BMP, FEPR, CBCA #### [facility] ([id number]) [address], [address] [place] [address] Glucose [Mass/Vol] 119 mg/dL High 65-99 [facility] Comment on above: Performed By: #### 6 793-4, 01932-4, 2157-01, BMP, FEPR, CBCA #### [facility] ([id number]) [address], [address] [place] [address] Potassium [Moles/Vol] 4.4 mmol/L Normal 3.5-5.0 [facility] Comment on above: Performed By: #### 6 793-4, 68183-8, 2156-6, BMP, FEPR, CBCA #### [facility] ([id number]) [address], [address] [place] [address] Sodium [Moles/Vol] 139 mmol/L Normal 134-146 [facility] Comment on above: Performed By: #### 6 793-4, 05335-2, 2157-01, BMP, FEPR, CBCA #### [facility] ([id number]) [address], [address] [place] [address] Urea nitrogen [Mass/Vol] 7 mg/dL Normal 5-23 [facility] Comment on above: Performed By: #### 6 793-4, 89640-3, 2157-01, BMP, FEPR, CBCA #### [facility] ([id number]) [address], [address] [place] [address] CBC AND AUTO DIFFon 11-13-19 24 ABSOLUTE BASOPHIL 0.0 X10E9/L Normal 0.0-0.2 [facility] Comment on above: Performed By: #### 6 793-4, 97898-1, 2157-01, BMP, FEPR, CBCA #### [facility] ([id number]) [address], [address] [place] [address] ABSOLUTE NEUTROPHIL 4.7 X10E9/L Normal 1.5-6.6 [facility] Comment on above: Performed By: #### 6 793-4, 81361-9, 2156-6, BMP, FEPR, CBCA #### [facility] ([id number]) [address] [address] [place] [address] Basophils/100 WBC (Bld) 0.5 % Normal [facility] Comment on above: Performed By: #### 6 793-4, 41420-1, 2156-6, BMP, FEPR, CBCA #### [facility] ([id number]) [address] [address] [place] [address] Eosinophils (Bld) [#/Vol] 0.2 10*3/uL Normal 0.0-0.4 [facility] Comment on above: Performed By: #### 6 793-4, 23219-7, 2157-01, BMP, FEPR, CBCA #### [facility] ([id number]) [address] [address] [place] [address] Eosinophils/100 WBC (Bld) 3.2 % Normal [facility] Comment on above: Performed By: #### 6 793-4, 14732-9, 2157-01, BMP, FEPR, CBCA #### [facility] ([id number]) [address] [address] [place] [address] Erythrocyte distribution width (RBC) [Ratio] 14.8 % Normal 11.5-15.0 [facility] Comment on above: Performed By: #### 6 793-4, 46436-5, 6, BMP, FEPR, CBCA #### [facility] ([id number]) [address] [address] [place] [address] Hematocrit (Bld) [Volume fraction] 22.2 % Low 35-47 [facility] Comment on above: Performed By: #### 6 793-4, 94413-2, 6, BMP, FEPR, CBCA #### [facility] ([id number]) [address] [address] [place] [address] Hemoglobin (Bld) [Mass/Vol] 7.2 g/dL Low 11.7-15.5 [facility] Comment on above: Performed By: #### 6 793-4, 16954-1, 2156-6, BMP, FEPR, CBCA #### [facility] ([id number]) [address], [address] [place] [address] Lymphocytes (Bld) [#/Vol] 1.6 10*3/uL Normal 1.0-3.5 [facility] Comment on above: Performed By: #### 6 793-4, 28818-7, 2156-6, BMP, FEPR, CBCA #### [facility] ([id number]) [address], [address] [place] [address] Lymphocytes/100 WBC (Bld) 22.7 % Normal [facility] Comment on above: Performed By: #### 6 793-4, 03812-8, 2156-6, BMP, FEPR, CBCA #### [facility] ([id number]) [address], [address] [place] [address] MCH (RBC) [Entitic mass] 30.2 pg Normal 27-34 [facility] Comment on above: Performed By: #### 6 793-4, 13723-9, 2156-6, BMP, FEPR, CBCA #### [facility] ([id number]) [address], [address] [place] [address] MCHC (RBC) [Mass/Vol] 32.2 g/dL Normal 32-36 [facility] Comment on above: Performed By: #### 6 793-4, 16391-7, 2156-6, BMP, FEPR, CBCA #### [facility] ([id number]) [address], [address] [place] [address] MCV (RBC) [Entitic vol] 94 fL Normal 80-100 [facility] Comment on above: Performed By: #### 6 793-4, 32883-4, 215-6, BMP, FEPR, CBCA #### [facility] ([id number]) [address], [facility] [address] [place] [address] Monocytes (Bld) [#/Vol] 0.5 10*3/uL Normal 0-0.9 [facility] Comment on above: Performed By: #### 6 793-4, 43897-7, 2157-6, BMP, FEPR, CBCA #### [facility] ([id number]) [address], [facility] [address] [place] [address] Monocytes/100 WBC (Bld) 7.6 % Normal [facility] Comment on above: Performed By: #### 6 793-4, 22780-9, 2156-6, BMP, FEPR, CBCA #### [facility] ([id number]) [address], [facility] [address] [place] [address] Neutrophils/100 WBC (Bld) 66.0 % Normal [facility] Comment on above: Performed By: #### 6 793-4, 07150-7, 2156-6, BMP, FEPR, CBCA #### [facility] ([id number]) [address], [facility] [address] [place] [address] Platelet mean volume (Bld) [Entitic vol] 7.0 fL Normal 7-12 [facility] Comment on above: Performed By: #### 6 793-4, 41175-6, 2157-6, BMP, FEPR, CBCA #### [facility] ([id number]) [address], [facility] [address] [place] [address] Platelets (Bld) [#/Vol] 382 10*3/uL Normal 150-450 [facility] Comment on above: Performed By: #### 6 793-4, 17391-2, 2157-6, BMP, FEPR, CBCA #### [facility] ([id number]) [address], [address] [place] [address] POLYCHROMASIA 2+ Abnormal NONE [facility] Comment on above: Performed By: #### 6 793-4, 11101-2, 2156-6, BMP, FEPR, CBCA #### [facility] ([id number]) [address], [facility] [address] [place] [address] RBC COUNT 2.37 X10E12/L Low 3.80-5.20 [facility] Comment on above: Performed By: #### 6 793-4, 87455-0, 2156-6, BMP, FEPR, CBCA #### [facility] ([id number]) [address], [facility] [address] [place] [address] STOMATOCYTE 1+ Abnormal NONE [facility] Comment on above: Performed By: #### 6 793-4, 52598-2, 2157-01, BMP, FEPR, CBCA #### [facility] ([id number]) [address] [address] WBC (Bld) [#/Vol] 7.1 10*3/uL Normal 4.0-11.0 [facility] Comment on above: Performed By: #### 6 793-4, 35944-1, 6, BMP, FEPR, CBCA #### [facility] ([id number]) [address], [facility] [address] [place] [address] HGB AND HCTon 11-13-2023 Hematocrit (Bld) [Volume fraction] 23.8 % Low 35-47 [facility] Comment on above: Performed By: #### 6 793-4, 20015-6, 6, BMP, FEPR, CBCA #### [facility] ([id number]) [address] [address] [place] [address] Hemoglobin (Bld) [Mass/Vol] 7.9 g/dL Low 11.7-15.5 [facility] Comment on above: Performed By: #### 6 793-4, 71407-7, 2157-6, BMP, FEPR, CBCA #### [facility] ([id number]) [address], [address] [place] [address] Haptoglobin Nephelometry [Ma ss/Vol]on 11-13-2023 HAPTOGLOBIN 390 mg/dL High 32-228 [facility] Comment on above: Performed By: #### 6 793-4, 87698-1, 2157-6, BMP, FEPR, CBCA #### [facility] ([id number]) [address], [address] [place] [address] IRON PROFILEon 11-13-2023 Iron [Mass/Vol] 56 ug/dL Normal 50-170 [facility] Comment on above: Performed By: #### 6 793-4, 51152-2, 2157-6, BMP, FEPR, CBCA #### [facility] ([id number]) [address], [address] [place] [address] IRON BINDING 294 ug/dL Normal 250-425 [facility] Comment on above: Performed By: #### 6 793-4, 33648-3, 2157-6, BMP, FEPR, CBCA #### [facility] ([id number]) [address], [address] [place] [address] IRON SATURATION 19 % SATURATION Normal 15-50 [facility] Comment on above: Performed By: #### 6 793-4, 79498-3, 2157-6, BMP, FEPR, CBCA #### [facility] ([id number]) [address], [address] [place] [address] LDH [Catalytic activity/Vol] on 11-13-2023 LDH 278 U/L High 100-235 [facility] Comment on above: Performed By: #### 6 793-4, 50219-0, 6, BMP, FEPR, CBCA #### [facility] ([id number]) [address], [address] [place] [address] MAGNESIUMon 11-13-2023 Magnesium [Mass/Vol] 1.8 mg/dL Normal 1.8-2.6 [facility] Comment on above: Performed By: #### 6 793-4, 13296-6, 6, BMP, FEPR, CBCA #### [facility] ([id number]) [address], [address] [place] [address] Reticulocytes/100 RBC (Bld)o n 11-13-2023 RETICULOCYTE COUNT 6.4 % High 0.4-2.2 [facility] Comment on above: Performed By: #### 6 793-4, 66831-3, 2157-01, BMP, FEPR, CBCA #### [facility] ([id number]) [address], [address] [place] [address] VITAMIN B12on 11-13-2023 Cobalamin (Vitamin B12) [Mass/Vol] 420 pg/mL Normal 180-914 [facility] Comment on above: Performed By: #### 6 793-4, 83838-6, 6, BMP, FEPR, CBCA #### [facility] ([id number]) [address], [address] [place] [address] BASIC METABOLIC PANLon 11-11 Anion gap [Moles/Vol] 10 mmol/L Normal 5-15 [facility] Comment on above: Performed By: #### 6 793-4, 00435-5, 6, BMP, FEPR, CBCA #### [facility] ([id number]) [address], [address] [place] [address] Calcium [Mass/Vol] 8.6 mg/dL Normal 8.5-10.5 [facility] Comment on above: Performed By: #### 6 793-4, 67750-5, 6, BMP, FEPR, CBCA #### [facility] ([id number]) [address], [address] [place] [address] Chloride [Moles/Vol] 102 mmol/L Normal 98-109 [facility] Comment on above: Performed By: #### 6 793-4, 56955-8, 6, BMP, FEPR, CBCA #### [facility] ([id number]) [address], [address] [place] [address] CO2 [Moles/Vol] 27 mmol/L Normal 22-32 [facility] Comment on above: Performed By: #### 6 793-4, 59626-1, 2157-01, BMP, FEPR, CBCA #### [facility] ([id number]) [address], [address] [place] [address] Creatinine [Mass/Vol] 0.51 mg/dL Normal 0.40-1.00 [facility] Comment on above: Result Comment: METH OD TRACEABLE TO IDMS STANDARD Performed By: #### 6 793-4, 82439-0, 2157-01, BMP, FEPR, CBCA #### [facility] ([id number]) [address], [address] [place] [address] eGFR (CKD-EPI) NON-RACE DEPENDENT >90 Normal >59 [facility] Comment on above: Result Comment: Reported eGFR is based on the CKD-EPI 2021 equation that does not use a race coefficient. Performed By: #### 6 793-4, 65953-3, 2156-6, BMP, FEPR, CBCA #### [facility] ([id number]) [address], [address] [place] [address] Glucose [Mass/Vol] 94 mg/dL Normal 65-99 [facility] Comment on above: Performed By: #### 6 793-4, 81330-8, 2157-01, BMP, FEPR, CBCA #### [facility] ([id number]) [address], [address] [place] [address] Potassium [Moles/Vol] 3.9 mmol/L Normal 3.5-5.0 [facility] Comment on above: Performed By: #### 6 793-4, 32617-6, 2156-6, BMP, FEPR, CBCA #### [facility] ([id number]) [address], [facility] [address] [place] [address] Sodium [Moles/Vol] 139 mmol/L Normal 134-146 [facility] Comment on above: Performed By: #### 6 793-4, 62213-6, 2157-01, BMP, FEPR, CBCA #### [facility] ([id number]) [address], [facility] [address] [place] [address] Urea nitrogen [Mass/Vol] 7 mg/dL Normal 5-23 [facility] Comment on above: Performed By: #### 6 793-4, 36789-8, 2157-01, BMP, FEPR, CBCA #### [facility] ([id number]) [address], [address] [address] CBC AND AUTO DIFFon 11-12-19 24 Band form neutrophils/100 WBC (Bld) 1.0 % Normal [facility] Comment on above: Performed By: #### 6 793-4, 29116-7, 2157-01, BMP, FEPR, CBCA #### [facility] ([id number]) [address] [address] Eosinophils (Bld) [#/Vol] 0.2 10*3/uL Normal 0.0-0.4 [facility] Comment on above: Performed By: #### 6 793-4, 12141-0, 6, BMP, FEPR, CBCA #### [facility] ([id number]) [address] [address] [place] [address] Eosinophils/100 WBC (Bld) 3.0 % Normal [facility] Comment on above: Performed By: #### 6 793-4, 87122-5, 2156-6, BMP, FEPR, CBCA #### [facility] ([id number]) [address] [address] [place] [address] Erythrocyte distribution width (RBC) [Ratio] 14.8 % Normal 11.5-15.0 [facility] Comment on above: Performed By: #### 6 793-4, 94980-3, 2157-01, BMP, FEPR, CBCA #### [facility] ([id number]) [address] [address] Hematocrit (Bld) [Volume fraction] 21.8 % Low 35-47 [facility] Comment on above: Performed By: #### 6 793-4, 40240-8, 2157-01, BMP, FEPR, CBCA #### [facility] ([id number]) [address] [address] Hemoglobin (Bld) [Mass/Vol] 7.0 g/dL Low 11.7-15.5 [facility] Comment on above: Performed By: #### 6 793-4, 12996-3, 6, BMP, FEPR, CBCA #### [facility] ([id number]) [address] [address] Lymphocytes (Bld) [#/Vol] 1.8 10*3/uL Normal 1.0-3.5 [facility] Comment on above: Performed By: #### 6 793-4, 77609-6, 2156-6, BMP, FEPR, CBCA #### [facility] ([id number]) [address] [address] Lymphocytes/100 WBC (Bld) 23.0 % Normal [facility] Comment on above: Performed By: #### 6 793-4, 49847-7, 2157-01, BMP, FEPR, CBCA #### [facility] ([id number]) [address] [address] [place] [address] MCH (RBC) [Entitic mass] 29.7 pg Normal 27-34 [facility] Comment on above: Performed By: #### 6 793-4, 26752-9, 2157-01, BMP, FEPR, CBCA #### [facility] ([id number]) [address] [facility] [address] [place] [address] MCHC (RBC) [Mass/Vol] 32.2 g/dL Normal 32-36 [facility] Comment on above: Performed By: #### 6 793-4, 15039-4, 2157-01, BMP, FEPR, CBCA #### [facility] ([id number]) [address] [address] MCV (RBC) [Entitic vol] 92 fL Normal 80-100 [facility] Comment on above: Performed By: #### 6 793-4, 51462-2, 2157-01, BMP, FEPR, CBCA #### [facility] ([id number]) [address] [address] Metamyelocytes/100 WBC (Bld) 1.0 % Normal [facility] Comment on above: Performed By: #### 6 793-4, 67278-4, 2156-6, BMP, FEPR, CBCA #### [facility] ([id number]) [address] [address] Monocytes (Bld) [#/Vol] 0.3 10*3/uL Normal 0-0.9 [facility] Comment on above: Performed By: #### 6 793-4, 13540-4, 2156-6, BMP, FEPR, CBCA #### [facility] ([id number]) [address] [place] [address] Monocytes/100 WBC (Bld) 4.0 % Normal [facility] Comment on above: Performed By: #### 6 793-4, 59287-6, 2156-6, BMP, FEPR, CBCA #### [facility] ([id number]) [address] [place] [address] Neutrophils (Bld) [#/Vol] 5.6 10*3/uL Normal 1.5-6.6 [facility] Comment on above: Performed By: #### 6 793-4, 49183-3, 2156-6, BMP, FEPR, CBCA #### [facility] ([id number]) [address] [place] [address] NUCLEATED RBC 7.0 /100 WBC High 0.0-1.0 [facility] Comment on above: Performed By: #### 6 793-4, 39122-8, 2156-6, BMP, FEPR, CBCA #### [facility] ([id number]) [address], [address] [place] [address] Platelet mean volume (Bld) [Entitic vol] 6.9 fL Low 7-12 [facility] Comment on above: Performed By: #### 6 793-4, 18560-1, 2156-6, BMP, FEPR, CBCA #### [facility] ([id number]) [address], [address] [place] [address] Platelets (Bld) [#/Vol] 332 10*3/uL Normal 150-450 [facility] Comment on above: Performed By: #### 6 793-4, 62322-8, 215-6, BMP, FEPR, CBCA #### [facility] ([id number]) [address], [address] [place] [address] POLYCHROMASIA 1+ Abnormal NONE [facility] Comment on above: Performed By: #### 6 793-4, 30126-1, 2156-6, BMP, FEPR, CBCA #### [facility] ([id number]) [address], [facility] [address] [place] [address] RBC COUNT 2.36 X10E12/L Low 3.80-5.20 [facility] Comment on above: Performed By: #### 6 793-4, 31505-2, 2156-6, BMP, FEPR, CBCA #### [facility] ([id number]) [address], [facility] [address] [place] [address] SEG NEUTROPHIL 68.0 % Normal [facility] Comment on above: Performed By: #### 6 793-4, 51112-2, 2157-01, BMP, FEPR, CBCA #### [facility] ([id number]) [address] [address] [place] [address] WBC (Bld) [#/Vol] 8.0 10*3/uL Normal 4.0-11.0 [facility] Comment on above: Performed By: #### 6 793-4, 40019-0, 6, BMP, FEPR, CBCA #### [facility] ([id number]) [address], [address] [place] [address] HGB AND HCTon 11-12-2023 Hematocrit (Bld) [Volume fraction] 22.2 % Low 35-47 [facility] Comment on above: Performed By: #### 6 793-4, 56068-2, 2156-6, BMP, FEPR, CBCA #### [facility] ([id number]) [address], [address] [place] [address] Hemoglobin (Bld) [Mass/Vol] 7.4 g/dL Low 11.7-15.5 [facility] Comment on above: Performed By: #### 6 793-4, 00008-1, 2156-6, BMP, FEPR, CBCA #### [facility] ([id number]) [address], [address] [place] [address] MAGNESIUMon 11-12-2023 Magnesium [Mass/Vol] 2.0 mg/dL Normal 1.8-2.6 [facility] Comment on above: Performed By: #### 6 793-4, 56465-7, 2156-6, BMP, FEPR, CBCA #### [facility] ([id number]) [address], [address] [place] [address] BASIC METABOLIC PANLon 11-10 Anion gap [Moles/Vol] 10 mmol/L Normal 5-15 [facility] Comment on above: Performed By: #### 6 793-4, 07287-3, 2156-6, BMP, FEPR, CBCA #### [facility] ([id number]) [address], [address] [place] [address] Calcium [Mass/Vol] 8.5 mg/dL Normal 8.5-10.5 [facility] Comment on above: Performed By: #### 6 793-4, 19694-4, 2156-6, BMP, FEPR, CBCA #### [facility] ([id number]) [address], [address] [place] [address] Chloride [Moles/Vol] 99 mmol/L Normal 98-109 [facility] Comment on above: Performed By: #### 6 793-4, 70366-6, 2156-6, BMP, FEPR, CBCA #### [facility] ([id number]) [address], [address] [place] [address] CO2 [Moles/Vol] 27 mmol/L Normal 22-32 [facility] Comment on above: Performed By: #### 6 793-4, 17959-1, 2157-6, BMP, FEPR, CBCA #### [facility] ([id number]) [address] [address] Creatinine [Mass/Vol] 0.53 mg/dL Normal 0.40-1.00 [facility] Comment on above: Result Comment: METH OD TRACEABLE TO IDMS STANDARD Performed By: #### 6 793-4, 56746-5, 215-6, BMP, FEPR, CBCA #### [facility] ([id number]) [address] [address] eGFR (CKD-EPI) NON-RACE DEPENDENT >90 Normal >59 [facility] Comment on above: Result Comment: Reported eGFR is based on the CKD-EPI 2020 equation that does not use a race coefficient. Performed By: #### 6 793-4, 38592-4, 215-6, BMP, FEPR, CBCA #### [facility] ([id number]) [address], [address] [address] Glucose [Mass/Vol] 125 mg/dL High 65-99 [facility] Comment on above: Performed By: #### 6 793-4, 47414-2, 215-6, BMP, FEPR, CBCA #### [facility] ([id number]) [address] [address] Potassium [Moles/Vol] 3.3 mmol/L Low 3.5-5.0 [facility] Comment on above: Performed By: #### 6 793-4, 39088-8, 2157-6, BMP, FEPR, CBCA #### [facility] ([id number]) [address] [address] Sodium [Moles/Vol] 136 mmol/L Normal 134-146 [facility] Comment on above: Performed By: #### 6 793-4, 98023-8, 2156-6, BMP, FEPR, CBCA #### [facility] ([id number]) [address] [address] Urea nitrogen [Mass/Vol] 10 mg/dL Normal 5-23 [facility] Comment on above: Performed By: #### 6 793-4, 07107-7, 2156-6, BMP, FEPR, CBCA #### [facility] ([id number]) [address], [address] [address] CBC AND AUTO DIFFon 03-20-20 24 ABSOLUTE BASOPHIL 0.0 X10E9/L Normal 0.0-0.2 [facility] Comment on above: Performed By: #### 6 793-4, 06152-7, 2156-, BMP, FEPR, CBCA #### [facility] ([id number]) [address] [address] ABSOLUTE NEUTROPHIL 6.4 X10E9/L Normal 1.5-6.6 [facility] Comment on above: Performed By: #### 6 793-4, 53775-0, 2157-01, BMP, FEPR, CBCA #### [facility] ([id number]) [address] [address] Basophils/100 WBC (Bld) 0.2 % Normal [facility] Comment on above: Performed By: #### 6 793-4, 70991-4, 6, BMP, FEPR, CBCA #### [facility] ([id number]) [address] [address] Eosinophils (Bld) [#/Vol] 0.1 10*3/uL Normal 0.0-0.4 [facility] Comment on above: Performed By: #### 6 793-4, 98440-7, 2157-6, BMP, FEPR, CBCA #### [facility] ([id number]) [address], [facility] [address] [place] [address] Eosinophils/100 WBC (Bld) 1.5 % Normal [facility] Comment on above: Performed By: #### 6 793-4, 65556-1, 2156-6, BMP, FEPR, CBCA #### [facility] ([id number]) [address], [address] [address] Erythrocyte distribution width (RBC) [Ratio] 14.6 % Normal 11.5-15.0 [facility] Comment on above: Performed By: #### 6 793-4, 65426-8, 2157-01, BMP, FEPR, CBCA #### [facility] ([id number]) [address] [address] Hematocrit (Bld) [Volume fraction] 21.4 % Low 35-47 [facility] Comment on above: Performed By: #### 6 793-4, 80689-6, 2156-6, BMP, FEPR, CBCA #### [facility] ([id number]) [address], [address] [address] Hemoglobin (Bld) [Mass/Vol] 7.3 g/dL Low 11.7-15.5 [facility] Comment on above: Performed By: #### 6 793-4, 71801-6, 6, BMP, FEPR, CBCA #### [facility] ([id number]) [address] [address] Lymphocytes (Bld) [#/Vol] 1.1 10*3/uL Normal 1.0-3.5 [facility] Comment on above: Performed By: #### 6 793-4, 37084-7, 2156-6, BMP, FEPR, CBCA #### [facility] ([id number]) [address] [address] [place] [address] Lymphocytes/100 WBC (Bld) 13.0 % Normal [facility] Comment on above: Performed By: #### 6 793-4, 78722-3, 2157-01, BMP, FEPR, CBCA #### [facility] ([id number]) [address] [address] MCH (RBC) [Entitic mass] 30.7 pg Normal 27-34 [facility] Comment on above: Performed By: #### 6 793-4, 33581-0, 2157-01, BMP, FEPR, CBCA #### [facility] ([id number]) [address] [address] MCHC (RBC) [Mass/Vol] 34.0 g/dL Normal 32-36 [facility] Comment on above: Performed By: #### 6 793-4, 79913-9, 2157-01, BMP, FEPR, CBCA #### [facility] ([id number]) [address] [address] MCV (RBC) [Entitic vol] 90 fL Normal 80-100 [facility] Comment on above: Performed By: #### 6 793-4, 45915-7, 2157-01, BMP, FEPR, CBCA #### [facility] ([id number]) [address] [address] Monocytes (Bld) [#/Vol] 0.9 10*3/uL Normal 0-0.9 [facility] Comment on above: Performed By: #### 6 793-4, 57492-0, 2157-01, BMP, FEPR, CBCA #### [facility] ([id number]) [address] [address] Monocytes/100 WBC (Bld) 10.0 % Normal [facility] Comment on above: Performed By: #### 6 793-4, 12699-5, 2156-6, BMP, FEPR, CBCA #### [facility] ([id number]) [address] [address] Neutrophils/100 WBC (Bld) 75.3 % Normal [facility] Comment on above: Performed By: #### 6 793-4, 27945-6, 2156-6, BMP, FEPR, CBCA #### [facility] ([id number]) [address] [address] Platelet mean volume (Bld) [Entitic vol] 6.7 fL Low 7-12 [facility] Comment on above: Performed By: #### 6 793-4, 30078-1, 2156-6, BMP, FEPR, CBCA #### [facility] ([id number]) [address], [address] [address] Platelets (Bld) [#/Vol] 296 10*3/uL Normal 150-450 [facility] Comment on above: Performed By: #### 6 793-4, 70310-4, 2156-6, BMP, FEPR, CBCA #### [facility] ([id number]) [address] [address] RBC COUNT 2.37 X10E12/L Low 3.80-5.20 [facility] Comment on above: Performed By: #### 6 793-4, 75213-9, 2156-6, BMP, FEPR, CBCA #### [facility] ([id number]) [address] [address] WBC (Bld) [#/Vol] 8.5 10*3/uL Normal 4.0-11.0 [facility] Comment on above: Performed By: #### 6 793-4, 27534-1, 2157-6, BMP, FEPR, CBCA #### [facility] ([id number]) [address], [address] [place] [address] MAGNESIUMon 11-11-2023 Magnesium [Mass/Vol] 2.2 mg/dL Normal 1.8-2.6 [facility] Comment on above: Performed By: #### 6 793-4, 88971-3, 2157-01, BMP, FEPR, CBCA #### [facility] ([id number]) [address], [address] [place] [address] Magnesium [Mass/Vol] 1.6 mg/dL Low 1.8-2.6 [facility] Comment on above: Performed By: #### 6 793-4, 20764-6, 2157-01, BMP, FEPR, CBCA #### [facility] ([id number]) [address], [address] [place] [address] POTASSIUMon 11-11-2023 Potassium [Moles/Vol] 3.9 mmol/L Normal 3.5-5.0 [facility] Comment on above: Performed By: #### 6 793-4, 27916-1, 2157-01, BMP, FEPR, CBCA #### [facility] ([id number]) [address], [address] [place] [address] BASIC METABOLIC PANLon 11-09 Anion gap [Moles/Vol] 9 mmol/L Normal 5-15 [facility] Comment on above: Performed By: #### 6 793-4, 25424-6, 2157-01, BMP, FEPR, CBCA #### [facility] ([id number]) [address], [address] [place] [address] Calcium [Mass/Vol] 8.0 mg/dL Low 8.5-10.5 [facility] Comment on above: Performed By: #### 6 793-4, 17900-8, 2157-6, BMP, FEPR, CBCA #### [facility] ([id number]) [address], [address] [place] [address] Chloride [Moles/Vol] 96 mmol/L Low 98-109 [facility] Comment on above: Performed By: #### 6 793-4, 02198-7, 2157-6, BMP, FEPR, CBCA #### [facility] ([id number]) [address], [address] [place] [address] CO2 [Moles/Vol] 28 mmol/L Normal 22-32 [facility] Comment on above: Performed By: #### 6 793-4, 76924-4, 2156-6, BMP, FEPR, CBCA #### [facility] ([id number]) [address], [address] [address] Creatinine [Mass/Vol] 0.65 mg/dL Normal 0.40-1.00 [facility] Comment on above: Result Comment: METH OD TRACEABLE TO IDMS STANDARD Performed By: #### 6 793-4, 42175-0, 2156-6, BMP, FEPR, CBCA #### [facility] ([id number]) [address], [address] [address] eGFR (CKD-EPI) NON-RACE DEPENDENT >90 Normal >59 [facility] Comment on above: Result Comment: Reported eGFR is based on the CKD-EPI 2021 equation that does not use a race coefficient. Performed By: #### 6 793-4, 39242-5, 2157-6, BMP, FEPR, CBCA #### [facility] ([id number]) [address] [address] Glucose [Mass/Vol] 136 mg/dL High 65-99 [facility] Comment on above: Performed By: #### 6 793-4, 45452-7, 215-6, BMP, FEPR, CBCA #### [facility] ([id number]) [address], [address] [place] [address] Potassium [Moles/Vol] 3.6 mmol/L Normal 3.5-5.0 [facility] Comment on above: Performed By: #### 6 793-4, 59664-7, 2157-6, BMP, FEPR, CBCA #### [facility] ([id number]) [address] [address] [place] [address] Sodium [Moles/Vol] 133 mmol/L Low 134-146 [facility] Comment on above: Performed By: #### 6 793-4, 86579-4, 2156-6, BMP, FEPR, CBCA #### [facility] ([id number]) [address] [address] [place] [address] Urea nitrogen [Mass/Vol] 14 mg/dL Normal 5-23 [facility] Comment on above: Performed By: #### 6 793-4, 82441-7, 2156-6, BMP, FEPR, CBCA #### [facility] ([id number]) [address] [address] [place] [address] COMPLETE BLOOD COUNTon 11-09 Erythrocyte distribution width (RBC) [Ratio] 14.0 % Normal 11.5-15.0 [facility] Comment on above: Performed By: #### 6 793-4, 49163-7, 2156-6, BMP, FEPR, CBCA #### [facility] ([id number]) [address] [address] [place] [address] Hematocrit (Bld) [Volume fraction] 22.8 % Low 35-47 [facility] Comment on above: Performed By: #### 6 793-4, 87261-1, 2157-6, BMP, FEPR, CBCA #### [facility] ([id number]) [address] [address] [place] [address] Hemoglobin (Bld) [Mass/Vol] 7.5 g/dL Low 11.7-15.5 [facility] Comment on above: Performed By: #### 6 793-4, 65930-5, 2156-6, BMP, FEPR, CBCA #### [facility] ([id number]) [address], [facility] [address] [place] [address] MCH (RBC) [Entitic mass] 29.8 pg Normal 27-34 [facility] Comment on above: Performed By: #### 6 793-4, 78603-5, 2156-6, BMP, FEPR, CBCA #### [facility] ([id number]) [address], [address] [address] MCHC (RBC) [Mass/Vol] 32.8 g/dL Normal 32-36 [facility] Comment on above: Performed By: #### 6 793-4, 23144-2, 2156-6, BMP, FEPR, CBCA #### [facility] ([id number]) [address] [address] MCV (RBC) [Entitic vol] 91 fL Normal 80-100 [facility] Comment on above: Performed By: #### 6 793-4, 50868-6, 2156-6, BMP, FEPR, CBCA #### [facility] ([id number]) [address], [address] [address] Platelet mean volume (Bld) [Entitic vol] 6.8 fL Low 7-12 [facility] Comment on above: Performed By: #### 6 793-4, 72584-2, 2156-6, BMP, FEPR, CBCA #### [facility] ([id number]) [address] [address] Platelets (Bld) [#/Vol] 318 10*3/uL Normal 150-450 [facility] Comment on above: Performed By: #### 6 793-4, 10943-6, 7-6, BMP, FEPR, CBCA #### [facility] ([id number]) [address], [address] [place] [address] RBC COUNT 2.51 X10E12/L Low 3.80-5.20 [facility] Comment on above: Performed By: #### 6 793-4, 16125-5, 2156-6, BMP, FEPR, CBCA #### [facility] ([id number]) [address], [address] [address] WBC (Bld) [#/Vol] 9.9 10*3/uL Normal 4.0-11.0 [facility] Comment on above: Performed By: #### 6 793-4, 79771-0, 2156-6, BMP, FEPR, CBCA #### [facility] ([id number]) [address], [address] [place] [address] FERRITINon 11-10-2023 Ferritin [Mass/Vol] 92 ng/mL Normal 11-307 [facility] Comment on above: Performed By: #### 6 793-4, 15722-5, 2156-6, BMP, FEPR, CBCA #### [facility] ([id number]) [address], [facility] [address] [place] [address] Folate [Mass/Vol]on 11-10-19 24 FOLIC ACID 9.1 ng/mL Normal >5.8 [facility] Comment on above: Result Comment: NEW REFERENCE RANGE Performed By: #### 6 793-4, 75460-6, 2157-6, BMP, FEPR, CBCA #### [facility] ([id number]) [address], [address] [place] [address] IRON PROFILEon 11-10-2023 Iron [Mass/Vol] ug/dL Low 50-170 [facility] Comment on above: Performed By: #### 6 793-4, 85463-6, 2156-6, BMP, FEPR, CBCA #### [facility] ([id number]) [address], [address] [place] [address] IRON BINDING 273 ug/dL Normal 250-425 [facility] Comment on above: Performed By: #### 6 793-4, 93522-3, 2156-6, BMP, FEPR, CBCA #### [facility] ([id number]) [address], [address] [place] [address] IRON SATURATION <4 Low 15-50 [facility] Comment on above: Performed By: #### 6 793-4, 47712-9, 2156-6, BMP, FEPR, CBCA #### [facility] ([id number]) [address], [address] [place] [address] Reticulocytes/100 RBC (Bld)o n 11-10-2023 RETICULOCYTE COUNT 2.8 % High 0.4-2.2 [facility] Comment on above: Performed By: #### 6 793-4, 13581-1, 2156-6, BMP, FEPR, CBCA #### [facility] ([id number]) [address], [address] [place] [address] VITAMIN B12on 11-10-2023 Cobalamin (Vitamin B12) [Mass/Vol] 133 pg/mL Low 180-914 [facility] Comment on above: Performed By: #### 6 793-4, 67738-5, 2156-6, BMP, FEPR, CBCA #### [facility] ([id number]) [address] [place] [address] XR ANKLE LT MIN 3 VWSon 10-22 XR ANKLE LT MIN 3 VWS XR ANKLE LT MIN 3 VWS XR ANKLE LT MIN 3 VWS HISTORY: Left ankle pain COMPARISON: None IMPRESSION: Tibiotalar total arthroplasty hardware in place with internal fixation screw in place of oblique calcaneal fracture. No radiographic evidence of hardware complication. Approved by Resident: Claudy Sams DO on 11/10/2023 4:31 PM IJose MD have personally reviewed the image(s) and agree with and/or edited the report Finalized by Jose Bai MD on 11/10/2023 4:45 PM [facility] [id number] 11-09-2023 [id number] DATE OF VISIT: 11/09/2023 PREOPERATIVE DIAGNOSIS: Periprosthetic left femur fracture around pre-existing left total hip arthroplasty (M97.02XA). POSTOPERATIVE DIAGNOSIS: 1. Periprosthetic left femur fracture around pre-existing left total hip arthroplasty (M97.02XA). 2. Morbid obesity, with a body mass index of 41.6. OPERATION PERFORMED: 1. Revision left total hip arthroplasty (60181), utilizing the following components from [employer]: a. Biomet, G7 [place] Titanium acetabular shell, multi- hole, 48 mm outer diameter shell size, liner size C. b. [place], G7 acetabular system Vivacit-E vitamin E highly cross-linked polyethylene liner, neutral, 32 mm internal diameter, liner size C. c. Biomet, Biolox Delta modular ceramic head, type 1 taper, +3 mm neck length. d. Biomet, Amanda modular revision hip system, STS distal stem, 14 mm, 190 mm length, uncemented Interlok. e. Biomet, Amanda modular revision hip system, standard cone proximal body, size C, type 1 taper. f. 4 screws in the acetabular cup, all 6.5 mm [place] self-tapping bone screws, measuring, from superior to posterior, 50, 20, 15, and 15 mm. g. G2, [place] 1.8 mm diameter cobalt chrome, braided cerclage cable ready wires around the proximal femur. 2. Application of negative pressure therapy dressing, [facility] wound VAC (46821.59). SURGEON: Jalen Pierce MD. FIRE TOWER KEEPER: Christy Martinez, PGY-4, orthopedic surgery resident from the [facility]. ANESTHESIA: General. ESTIMATED BLOOD LOSS: 1150 mL. FLUIDS: 675 mL of autologous red blood cells from the [employer], 3700 mL of crystalloid, 750 mL of 5% albumin. URINARY OUTPUT: 1350 mL. POSTOPERATIVE DRAINS: 1 closed suction 10-Tristanian Hemovac drain brought out through a small separate stab incision anterior to the surgical wound. INDICATIONS: Doris Badillo is a 58-year-old woman who had a left total hip arthroplasty performed by an orthopedic surgeon in the [place], [place] area about 3 weeks ago. Over the weekend, she felt a pop and had extreme pain in her hip. She was brought to our hospital where she was found to have an unstable periprosthetic fracture. In examining her radiographs and studying the previous operative note, the patient had a small tapered stem in place. This was quite stable. My plan for revision of the stem would be a fluted, uncemented modular stem. As far as her acetabulum is concerned, it is highly unusual for her to have such a small cup, 44 mm outer diameter in place. An x-ray of the opposite hip shows a cup size that is certainly in the 48 to 50 mm range. Since I will be there, and revision of the cup will not be a problem, I think revising her to a larger size will give her more stability, and I have told her I would like to do this. She seemed to understand and was agreeable. DESCRIPTION OF PROCEDURE: This overweight woman was taken the operating theater and given a general anesthetic. She was then placed supine on a radiolucent Abraham trauma table and positioned on a pegboard. She received 3 g of intravenous cefazolin for antibiotic prophylaxis prior to surgery. The area of the left hip was then examined. There was a previous healed anterolateral scar in place. The left flank, hip, thigh, and leg were all scrubbed with chlorhexidine, dried, painted with DuraPrep, and then draped off in the usual sterile fashion. After an appropriate time-out, the previous incision was opened. A large bloody seroma was found. This fluid was sent for culture. The incision was extended to the proximal 3rd of the femur. The patient had an anterolateral approach. The same approach was then used. The anterior half of the hip abductors had been sewn in place with green, nonabsorbable, Ethibond suture. This was taken down, and the hip was then visualized. The small diameter cementless stem was quite unstable and easily removed. Cultures were taken of some of the tissue around the hip. At this point, the acetabular cup was easily visualized. I proceeded to remove the elevated liner. Interestingly, the elevation on the liner was actually placed anteriorly, more at about 10 o'clock than the standard superior or posterior position. Once the liner was removed, a single superior 6.5 mm threaded screw was removed from the cup. Curved osteotomes were placed around the cup, and a punch was used to remove the acetabular cup without issues. Acetabular reaming was done at 44, 46, and 48 mm. A 48 mm outer diameter multihole cup was then placed. The cup was placed at about 45 degrees of abduction and about 30 degrees of anteversion. 4 screws were placed in the cup, 1 long 50 mm screw superiorly, and then, superior posterior, a 20 mm screw, followed by two 15 mm screws inferiorly and posteriorly. The trial liner was placed. A ball-tipped guidewire was placed down the intramedullary canal. Intramedullary reaming (more content not included)... Normal [facility] ANAEROBE CULTUREon Bacteria identified Anaer cx Nom (Unsp spec) SPECIMEN NOTES SPECIMEN B CULTURE RESULTS NO GROWTH 14 DAYS Normal [facility] Comment on above: Performed By: #### 6 793-4, 19915-0, 6, BMP, FEPR, CBCA #### [facility] ([id number]) [address], [address] [place] [address] Bacteria identified Anaer cx Nom (Unsp spec) SPECIMEN NOTES SPECIMEN A CULTURE RESULTS NO GROWTH 14 DAYS Normal [facility] Comment on above: Performed By: #### 6 793-4, 46845-7, 2156-6, BMP, FEPR, CBCA #### [facility] ([id number]) [address], [address] [place] [address] BASIC METABOLIC PANLon 11-08 Anion gap [Moles/Vol] 9 mmol/L Normal 5-15 [facility] Comment on above: Performed By: #### 6 793-4, 53895-6, 2156-6, BMP, FEPR, CBCA #### [facility] ([id number]) [address], [address] [place] [address] Calcium [Mass/Vol] 9.0 mg/dL Normal 8.5-10.5 [facility] Comment on above: Performed By: #### 6 793-4, 77363-8, 2156-6, BMP, FEPR, CBCA #### [facility] ([id number]) [address], [address] [place] [address] Chloride [Moles/Vol] 97 mmol/L Low 98-109 [facility] Comment on above: Performed By: #### 6 793-4, 37252-1, 2156-6, BMP, FEPR, CBCA #### [facility] ([id number]) [address], [address] [place] [address] CO2 [Moles/Vol] 30 mmol/L Normal 22-32 [facility] Comment on above: Performed By: #### 6 793-4, 04706-7, 2156-6, BMP, FEPR, CBCA #### [facility] ([id number]) [address], [facility] [address] [place] [address] Creatinine [Mass/Vol] 0.70 mg/dL Normal 0.40-1.00 [facility] Comment on above: Result Comment: METH OD TRACEABLE TO IDMS STANDARD Performed By: #### 6 793-4, 50298-8, 2156-6, BMP, FEPR, CBCA #### [facility] ([id number]) [address] [place] [address] eGFR (CKD-EPI) NON-RACE DEPENDENT >90 Normal >59 [facility] Comment on above: Result Comment: Reported eGFR is based on the CKD-EPI 2020 equation that does not use a race coefficient. Performed By: #### 6 793-4, 17714-1, 2157-6, BMP, FEPR, CBCA #### [facility] ([id number]) [address] [place] [address] Glucose [Mass/Vol] 110 mg/dL High 65-99 [facility] Comment on above: Performed By: #### 6 793-4, 80835-6, 2156-6, BMP, FEPR, CBCA #### [facility] ([id number]) [address] [address] Potassium [Moles/Vol] 3.6 mmol/L Normal 3.5-5.0 [facility] Comment on above: Performed By: #### 6 793-4, 94440-5, 2156-6, BMP, FEPR, CBCA #### [facility] ([id number]) [address] [address] Sodium [Moles/Vol] 136 mmol/L Normal 134-146 [facility] Comment on above: Performed By: #### 6 793-4, 91314-4, 2156-6, BMP, FEPR, CBCA #### [facility] ([id number]) [address] [address] Urea nitrogen [Mass/Vol] 11 mg/dL Normal 5-23 [facility] Comment on above: Performed By: #### 6 793-4, 17185-1, 2156-6, BMP, FEPR, CBCA #### [facility] ([id number]) [address] [address] COMPLETE BLOOD COUNTon 11-08 Erythrocyte distribution width (RBC) [Ratio] 14.6 % Normal 11.5-15.0 [facility] Comment on above: Performed By: #### 6 793-4, 33718-0, 2156-6, BMP, FEPR, CBCA #### [facility] ([id number]) [address] [place] [address] Hematocrit (Bld) [Volume fraction] 29.9 % Low 35-47 [facility] Comment on above: Performed By: #### 6 793-4, 59223-9, 6, BMP, FEPR, CBCA #### [facility] ([id number]) [address] [facility] [address] [place] [address] Hemoglobin (Bld) [Mass/Vol] 9.9 g/dL Low 11.7-15.5 [facility] Comment on above: Performed By: #### 6 793-4, 66889-0, 2157-01, BMP, FEPR, CBCA #### [facility] ([id number]) [address], [facility] [address] [place] [address] MCH (RBC) [Entitic mass] 30.1 pg Normal 27-34 [facility] Comment on above: Performed By: #### 6 793-4, 08292-5, 2157-01, BMP, FEPR, CBCA #### [facility] ([id number]) [address], [facility] [address] [place] [address] MCHC (RBC) [Mass/Vol] 33.3 g/dL Normal 32-36 [facility] Comment on above: Performed By: #### 6 793-4, 34320-4, 2157-01, BMP, FEPR, CBCA #### [facility] ([id number]) [address], [facility] [address] [place] [address] MCV (RBC) [Entitic vol] 91 fL Normal 80-100 [facility] Comment on above: Performed By: #### 6 793-4, 84782-4, 6, BMP, FEPR, CBCA #### [facility] ([id number]) [address] [place] [address] Platelet mean volume (Bld) [Entitic vol] 6.8 fL Low 7-12 [facility] Comment on above: Performed By: #### 6 793-4, 78925-8, 2157-6, BMP, FEPR, CBCA #### [facility] ([id number]) [address], [address] [place] [address] Platelets (Bld) [#/Vol] 327 10*3/uL Normal 150-450 [facility] Comment on above: Performed By: #### 6 793-4, 12359-4, 2157-6, BMP, FEPR, CBCA #### [facility] ([id number]) [address] [place] [address] RBC COUNT 3.30 X10E12/L Low 3.80-5.20 [facility] Comment on above: Performed By: #### 6 793-4, 23872-6, 2156-6, BMP, FEPR, CBCA #### [facility] ([id number]) [address] [place] [address] WBC (Bld) [#/Vol] 6.1 10*3/uL Normal 4.0-11.0 [facility] Comment on above: Performed By: #### 6 793-4, 97955-8, 2157-6, BMP, FEPR, CBCA #### [facility] ([id number]) [address] [place] [address] FLUID CULTUREon 11-09-2023 Bacteria identified Aer cx Nom (Body fld) SPECIMEN NOTES SPECIMEN A GRAM STAIN WHITE BLOOD CELLS PRESENT NO ORGANISMS SEEN ON DIRECT SMEAR FLUID TOO BLOODY TO CONCENTRATE. INTERPRET RESULTS WITH CAUTION A Negative report does not exclude the possibility of infection because results are dependent on adequate specimen collection. CULTURE RESULTS NO GROWTH 5 DAYS Normal [facility] Comment on above: Performed By: #### 6 793-4, 74079-9, 2157-6, BMP, FEPR, CBCA #### [facility] ([id number]) [address] [place] [address] FUNGAL CULTUREon 11-09-2023 Fungus identified Cx Nom (Unsp spec) SPECIMEN NOTES SPECIMEN B FUNGAL SMEAR NO FUNGAL ELEMENTS SEEN ON DIRECT SMEAR CULTURE RESULTS NO FUNGUS ISOLATED AFTER 4 WEEKS Normal [facility] Comment on above: Performed By: #### 6 793-4, 42656-8, 2157-6, BMP, FEPR, CBCA #### [facility] ([id number]) [address] [place] [address] Fungus identified Cx Nom (Unsp spec) SPECIMEN NOTES SPECIMEN A FUNGAL SMEAR NO FUNGAL ELEMENTS SEEN ON CONCENTRATED SMEAR CULTURE RESULTS NO FUNGUS ISOLATED AFTER 4 WEEKS Normal [facility] Comment on above: Performed By: #### 6 793-4, 82342-4, 2156-6, BMP, FEPR, CBCA #### [facility] ([id number]) [address], [address] [place] [address] RAPID CARDIACon 11-09-2023 RILEY'S TEST Normal [facility] Comment on above: Performed By: #### 6 793-4, 71913-0, 2156-6, BMP, FEPR, CBCA #### [facility] ([id number]) [address] [address] Base excess Calc (Bld) [Moles/Vol] 2.5 mmol/L High 0.0-2.0 [facility] Comment on above: Performed By: #### 6 793-4, 80194-9, 2156-6, BMP, FEPR, CBCA #### [facility] ([id number]) [address] [address] Body temperature 98.6 [degF] Normal 37.0 [facility] Comment on above: Performed By: #### 6 793-4, 86216-7, 2157-6, BMP, FEPR, CBCA #### [facility] ([id number]) [address] [place] [address] Glucose [Mass/Vol] 125 mg/dL High 65-99 [facility] Comment on above: Performed By: #### 6 793-4, 81716-0, 2156-6, BMP, FEPR, CBCA #### [facility] ([id number]) [address] [place] [address] HCO3 (Bld) [Moles/Vol] 28.1 mmol/L High 22-26 [facility] Comment on above: Performed By: #### 6 793-4, 24197-2, 2156-6, BMP, FEPR, CBCA #### [facility] ([id number]) [address] [place] [address] Hematocrit (Bld) [Volume fraction] 26 % Low 35-47 [facility] Comment on above: Performed By: #### 6 793-4, 75072-8, 2156-6, BMP, FEPR, CBCA #### [facility] ([id number]) [address] [facility] [address] [place] [address] Hemoglobin (Bld) [Mass/Vol] 8.6 g/dL Low 11.7-15.5 [facility] Comment on above: Performed By: #### 6 793-4, 32520-1, 2156-6, BMP, FEPR, CBCA #### [facility] ([id number]) [address] [place] [address] INSP. O2 CONC. 100 % Normal [facility] Comment on above: Performed By: #### 6 793-4, 85154-8, 215-6, BMP, FEPR, CBCA #### [facility] ([id number]) [address] [place] [address] IONIZED CALCIUM 4.7 mg/dL Normal 4.5-5.3 [facility] Comment on above: Performed By: #### 6 793-4, 55044-5, 2157-6, BMP, FEPR, CBCA #### [facility] ([id number]) [address] [place] [address] Oxygen (Bld) [Partial pressure] 147 mm[Hg] High 80-100 [facility] Comment on above: Performed By: #### 6 793-4, 90706-5, 2156-6, BMP, FEPR, CBCA #### [facility] ([id number]) [address] [place] [address] Oxygen saturation in Blood 100.2 % Normal >90 [facility] Comment on above: Performed By: #### 6 793-4, 98885-0, 2156-6, BMP, FEPR, CBCA #### [facility] ([id number]) [address] [place] [address] PCO2 50.8 MMHG High 35-45 [facility] Comment on above: Performed By: #### 6 793-4, 37360-6, 2156-6, BMP, FEPR, CBCA #### [facility] ([id number]) [address] [place] [address] pH (Bld) 7.351 [pH] Normal 7.350-7.450 [facility] Comment on above: Performed By: #### 6 793-4, 24977-5, 215-6, BMP, FEPR, CBCA #### [facility] ([id number]) [address] [place] [address] Potassium [Moles/Vol] 3.4 mmol/L Low 3.5-5.0 [facility] Comment on above: Performed By: #### 6 793-4, 76363-5, 2157-6, BMP, FEPR, CBCA #### [facility] ([id number]) [address] [place] [address] SAMPLE SITE NABILA Normal [facility] Comment on above: Performed By: #### 6 793-4, 44712-7, 2157-6, BMP, FEPR, CBCA #### [facility] ([id number]) [address] [place] [address] SAMPLE TYPE Arterial [facility] Comment on above: Performed By: #### 6 793-4, 81867-7, 2157-6, BMP, FEPR, CBCA #### [facility] ([id number]) [address] [place] [address] TISSUE CULTUREon 11-09-2023 Bacteria identified Aer cx Nom (Tiss) SPECIMEN NOTES SPECIMEN B GRAM STAIN 0 WHITE BLOOD CELLS/LPF 0 SQUAMOUS EPITHELIAL CELLS/LPF NO ORGANISMS SEEN CULTURE RESULTS NO GROWTH 3 DAYS [facility] Comment on above: Performed By: #### 6 793-4, 40041-5, 2157-6, BMP, FEPR, CBCA #### [facility] ([id number]) [address] [place] [address] XR ANKLE RT MIN 3 VWSon 10-22 XR ANKLE RT MIN 3 VWS XR ANKLE RT MIN 3 VWS XR ANKLE RT MIN 3 VWS HISTORY: Ankle pain. Fusion assessment. AP, lateral, and mortise please. COMPARISON: None. IMPRESSION: No acute fracture, dislocation or malalignment. Symmetric ankle mortise. Subtalar osteoarthrosis. Cortical irregularity is about the medial malleolus, possibly sequelae of remote trauma. Achilles and calcaneal enthesophytes. Finalized by Jose Bai MD on 11/09/2023 10:14 PM [facility] XR FEMUR LT 2+ VIEWSon 11-08 XR FEMUR LT 2+ VIEWS XR FEMUR LT 2+ VIEW S XR FEMUR LT 2+ VIEWS HISTORY: Postop eval. AP and lateral. COMPARISON: 11/07/2023. IMPRESSION: Revision arthroplasty with long femoral stem, multiple proximal femoral cerclage wires. Cutaneous nora. Finalized by Jose Bai MD on 11/09/2023 10:13 PM Normal [facility] XR HIP LT 2-3 VIEWS W OR WO PELVISon 11-09-2023 XR HIP LT 2-3 VIEWS W OR WO PELVIS XR HIP LT 2-3 VIEWS W OR WO PELVIS CLINICAL INFORMATION: total left hip revision in OR 5 IMPRESSION: * Intraoperative fluoroscopy provided. The reference air kerma was 35.01 mGy. Finalized by Lan Claire MD on 11/09/2023 4:29 PM Normal [facility] XR PELVIS MIN 3 VWSon 2023 XR PELVIS MIN 3 VWS XR PELVIS MIN 3 VWS XR PELVIS MIN 3 VWS HISTORY: Postop eval. AP, 2 judet views please. COMPARISON: 11/07/2023. IMPRESSION: No displaced or pelvic fracture. Bilateral femoral arthroplasties, cerclage wires transfixing subtrochanteric left femoral fracture.. Finalized by Jose Bai MD on 11/09/2023 10:13 PM Normal [facility] BASIC METABOLIC PANLon 11-07 Anion gap [Moles/Vol] 11 mmol/L Normal 5-15 [facility] Comment on above: Performed By: #### 6 793-4, 09871-4, 6, BMP, FEPR, CBCA #### [facility] ([id number]) [address] [place] [address] Calcium [Mass/Vol] 8.9 mg/dL Normal 8.5-10.5 [facility] Comment on above: Performed By: #### 6 793-4, 08858-2, 6, BMP, FEPR, CBCA #### [facility] ([id number]) [address] [place] [address] Chloride [Moles/Vol] 98 mmol/L Normal 98-109 [facility] Comment on above: Performed By: #### 6 793-4, 14238-4, 2156-6, BMP, FEPR, CBCA #### [facility] ([id number]) [address] [place] [address] CO2 [Moles/Vol] 26 mmol/L Normal 22-32 [facility] Comment on above: Performed By: #### 6 793-4, 37073-7, 2156-6, BMP, FEPR, CBCA #### [facility] ([id number]) [address], [facility] [address] [place] [address] Creatinine [Mass/Vol] 0.73 mg/dL Normal 0.40-1.00 [facility] Comment on above: Result Comment: METH OD TRACEABLE TO IDMS STANDARD Performed By: #### 6 793-4, 35701-2, 2156-6, BMP, FEPR, CBCA #### [facility] ([id number]) [address] [place] [address] eGFR (CKD-EPI) NON-RACE DEPENDENT >90 Normal >59 [facility] Comment on above: Result Comment: Reported eGFR is based on the CKD-EPI 2020 equation that does not use a race coefficient. Performed By: #### 6 793-4, 77570-1, 2156-6, BMP, FEPR, CBCA #### [facility] ([id number]) [address] [place] [address] Glucose [Mass/Vol] 131 mg/dL High 65-99 [facility] Comment on above: Performed By: #### 6 793-4, 86916-5, 2156-6, BMP, FEPR, CBCA #### [facility] ([id number]) [address] [address] [place] [address] Potassium [Moles/Vol] 4.0 mmol/L Normal 3.5-5.0 [facility] Comment on above: Performed By: #### 6 793-4, 32378-2, 6, BMP, FEPR, CBCA #### [facility] ([id number]) [address] [address] [place] [address] Sodium [Moles/Vol] 135 mmol/L Normal 134-146 [facility] Comment on above: Performed By: #### 6 793-4, 23103-5, 2156-6, BMP, FEPR, CBCA #### [facility] ([id number]) [address] [address] [place] [address] Urea nitrogen [Mass/Vol] 9 mg/dL Normal 5-23 [facility] Comment on above: Performed By: #### 6 793-4, 48879-0, 2156-6, BMP, FEPR, CBCA #### [facility] ([id number]) [address], [address] [address] COMPLETE BLOOD COUNTon 11-07 Erythrocyte distribution width (RBC) [Ratio] 14.1 % Normal 11.5-15.0 [facility] Comment on above: Performed By: #### 6 793-4, 35242-3, 6, BMP, FEPR, CBCA #### [facility] ([id number]) [address] [address] [place] [address] Hematocrit (Bld) [Volume fraction] 31.2 % Low 35-47 [facility] Comment on above: Performed By: #### 6 793-4, 87510-6, 2156-6, BMP, FEPR, CBCA #### [facility] ([id number]) [address] [address] Hemoglobin (Bld) [Mass/Vol] 10.2 g/dL Low 11.7-15.5 [facility] Comment on above: Performed By: #### 6 793-4, 84706-8, 215-6, BMP, FEPR, CBCA #### [facility] ([id number]) [address] [place] [address] MCH (RBC) [Entitic mass] 30.1 pg Normal 27-34 [facility] Comment on above: Performed By: #### 6 793-4, 42657-7, 2156-6, BMP, FEPR, CBCA #### [facility] ([id number]) [address] [place] [address] MCHC (RBC) [Mass/Vol] 32.7 g/dL Normal 32-36 [facility] Comment on above: Performed By: #### 6 793-4, 17603-7, 2157-01, BMP, FEPR, CBCA #### [facility] ([id number]) [address] [facility] [address] [place] [address] MCV (RBC) [Entitic vol] 92 fL Normal 80-100 [facility] Comment on above: Performed By: #### 6 793-4, 20246-1, 2156-, BMP, FEPR, CBCA #### [facility] ([id number]) [address] [facility] [address] [place] [address] Platelet mean volume (Bld) [Entitic vol] 6.8 fL Low 7-12 [facility] Comment on above: Performed By: #### 6 793-4, 19532-6, 2157-01, BMP, FEPR, CBCA #### [facility] ([id number]) [address] [facility] [address] [place] [address] Platelets (Bld) [#/Vol] 332 10*3/uL Normal 150-450 [facility] Comment on above: Performed By: #### 6 793-4, 82493-0, 2156-6, BMP, FEPR, CBCA #### [facility] ([id number]) [address] [place] [address] RBC COUNT 3.39 X10E12/L Low 3.80-5.20 [facility] Comment on above: Performed By: #### 6 793-4, 55086-3, 2156-6, BMP, FEPR, CBCA #### [facility] ([id number]) [address] [place] [address] WBC (Bld) [#/Vol] 6.6 10*3/uL Normal 4.0-11.0 [facility] Comment on above: Performed By: #### 6 793-4, 47249-1, 6, BMP, FEPR, CBCA #### [facility] ([id number]) [address] [place] [address] MAGNESIUMon 11-08-2023 Magnesium [Mass/Vol] 2.1 mg/dL Normal 1.8-2.6 [facility] Comment on above: Performed By: #### 6 793-4, 97890-3, 2157-01, BMP, FEPR, CBCA #### [facility] ([id number]) [address] [place] [address] BASIC METABOLIC PANLon 11-06 Anion gap [Moles/Vol] 10 mmol/L Normal 5-15 [facility] Comment on above: Performed By: #### 6 793-4, 43868-7, 6, BMP, FEPR, CBCA #### [facility] ([id number]) [address] [place] [address] Calcium [Mass/Vol] 8.8 mg/dL Normal 8.5-10.5 [facility] Comment on above: Performed By: #### 6 793-4, 52025-8, 2156-6, BMP, FEPR, CBCA #### [facility] ([id number]) [address] [place] [address] Chloride [Moles/Vol] 102 mmol/L Normal 98-109 [facility] Comment on above: Performed By: #### 6 793-4, 46766-0, 2156-6, BMP, FEPR, CBCA #### [facility] ([id number]) [address] [place] [address] CO2 [Moles/Vol] 28 mmol/L Normal 22-32 [facility] Comment on above: Performed By: #### 6 793-4, 03055-0, 2156-6, BMP, FEPR, CBCA #### [facility] ([id number]) [address], [facility] [address] [place] [address] Creatinine [Mass/Vol] 0.62 mg/dL Normal 0.40-1.00 [facility] Comment on above: Result Comment: METH OD TRACEABLE TO IDMS STANDARD Performed By: #### 6 793-4, 20602-7, 6, BMP, FEPR, CBCA #### [facility] ([id number]) [address] [place] [address] eGFR (CKD-EPI) NON-RACE DEPENDENT >90 Normal >59 [facility] Comment on above: Result Comment: Reported eGFR is based on the CKD-EPI 1 equation that does not use a race coefficient. Performed By: #### 6 793-4, 16191-3, 2156-6, BMP, FEPR, CBCA #### [facility] ([id number]) [address] [place] [address] Glucose [Mass/Vol] 127 mg/dL High 65-99 [facility] Comment on above: Performed By: #### 6 793-4, 13432-0, 2156-6, BMP, FEPR, CBCA #### [facility] ([id number]) [address] [place] [address] Potassium [Moles/Vol] 4.0 mmol/L Normal 3.5-5.0 [facility] Comment on above: Performed By: #### 6 793-4, 85210-2, 2156-6, BMP, FEPR, CBCA #### [facility] ([id number]) [address] [place] [address] Sodium [Moles/Vol] 140 mmol/L Normal 134-146 [facility] Comment on above: Performed By: #### 6 793-4, 25294-5, 6, BMP, FEPR, CBCA #### [facility] ([id number]) [address] [place] [address] Urea nitrogen [Mass/Vol] 8 mg/dL Normal 5-23 [facility] Comment on above: Performed By: #### 6 793-4, 72647-9, 2157-01, BMP, FEPR, CBCA #### [facility] ([id number]) [address] [place] [address] Anion gap [Moles/Vol] 6 mmol/L Normal 5-15 [facility] Comment on above: Performed By: #### C BCA, BMP #### [facility] ([id number]) [address] [place] [address] Calcium [Mass/Vol] 9.0 mg/dL Normal 8.5-10.5 [facility] Comment on above: Performed By: #### C BCA, BMP #### [facility] ([id number]) [address] [place] [address] Chloride [Moles/Vol] 103 mmol/L Normal 98-109 [facility] Comment on above: Performed By: #### C BCA, BMP #### [facility] ([id number]) [address] [place] [address] CO2 [Moles/Vol] 24 mmol/L Normal 22-32 [facility] Comment on above: Performed By: #### C BCA, BMP #### [facility] ([id number]) [address] [place] [address] Creatinine [Mass/Vol] 0.80 mg/dL Normal 0.40-1.00 [facility] Comment on above: Result Comment: METH OD TRACEABLE TO IDMS STANDARD Performed By: #### C BCA, BMP #### [facility] ([id number]) [address] [place] [address] GFR/1.73 sq M.predicted among non-blacks MDRD (S/P/Bld) [Vol rate/Area] 86 mL/min/{1.73_m2} Normal >59 [facility] Comment on above: Result Comment: Reported eGFR is based on the CKD-EPI 2020 equation that does not use a race coefficient. Performed By: #### C BCA, BMP #### [facility] ([id number]) [address] [place] [address] Glucose [Mass/Vol] 140 mg/dL High 65-99 [facility] Comment on above: Performed By: #### C BCA, BMP #### [facility] ([id number]) [address] [place] [address] Potassium [Moles/Vol] 4.3 mmol/L Normal 3.5-5.0 [facility] Comment on above: Performed By: #### C BCA, BMP #### [facility] ([id number]) [address] [place] [address] Sodium [Moles/Vol] 133 mmol/L Low 134-146 [facility] Comment on above: Performed By: #### C BCA, BMP #### [facility] ([id number]) [address] [place] [address] Urea nitrogen [Mass/Vol] 6 mg/dL Normal 5-23 [facility] Comment on above: Performed By: #### C BCA, BMP #### [facility] ([id number]) [address] [place] [address], [place] [address] CBC AND AUTO DIFFon 11-07-19 24 ABSOLUTE BASOPHIL 0.0 X10E9/L Normal 0.0-0.2 [facility] Comment on above: Performed By: #### 6 793-4, 71645-7, 2156-6, BMP, FEPR, CBCA #### [facility] ([id number]) [address], [address] [place] [address] ABSOLUTE NEUTROPHIL 5.7 X10E9/L Normal 1.5-6.6 [facility] Comment on above: Performed By: #### 6 793-4, 06813-0, 2157-01, BMP, FEPR, CBCA #### [facility] ([id number]) [address], [address] [place] [address] Basophils/100 WBC (Bld) 0.3 % Normal [facility] Comment on above: Performed By: #### 6 793-4, 54619-1, 2157-01, BMP, FEPR, CBCA #### [facility] ([id number]) [address], [address] [place] [address] Eosinophils (Bld) [#/Vol] 0.0 10*3/uL Normal 0.0-0.4 [facility] Comment on above: Performed By: #### 6 793-4, 32769-5, 2157-01, BMP, FEPR, CBCA #### [facility] ([id number]) [address], [address] [place] [address] Eosinophils/100 WBC (Bld) 0.3 % Normal [facility] Comment on above: Performed By: #### 6 793-4, 66663-4, 2156-6, BMP, FEPR, CBCA #### [facility] ([id number]) [address] [address] [place] [address] Erythrocyte distribution width (RBC) [Ratio] 14.2 % Normal 11.5-15.0 [facility] Comment on above: Performed By: #### 6 793-4, 16709-8, 6, BMP, FEPR, CBCA #### [facility] ([id number]) [address] [address] [place] [address] Hematocrit (Bld) [Volume fraction] 31.3 % Low 35-47 [facility] Comment on above: Performed By: #### 6 793-4, 05201-3, 2157-01, BMP, FEPR, CBCA #### [facility] ([id number]) [address] [address] Hemoglobin (Bld) [Mass/Vol] 10.5 g/dL Low 11.7-15.5 [facility] Comment on above: Performed By: #### 6 793-4, 86065-7, 2157-01, BMP, FEPR, CBCA #### [facility] ([id number]) [address] [address] Lymphocytes (Bld) [#/Vol] 0.7 10*3/uL Low 1.0-3.5 [facility] Comment on above: Performed By: #### 6 793-4, 45477-0, 2157-01, BMP, FEPR, CBCA #### [facility] ([id number]) [address] [address] Lymphocytes/100 WBC (Bld) 9.5 % Normal [facility] Comment on above: Performed By: #### 6 793-4, 04076-2, 2157-01, BMP, FEPR, CBCA #### [facility] LAB ([id number]) [address] [address] [place] [address] MCH (RBC) [Entitic mass] 30.4 pg Normal 27-34 [facility] Comment on above: Performed By: #### 6 793-4, 02649-0, 2156-6, BMP, FEPR, CBCA #### [facility] ([id number]) [address] [place] [address] MCHC (RBC) [Mass/Vol] 33.6 g/dL Normal 32-36 [facility] Comment on above: Performed By: #### 6 793-4, 70325-8, 2156-6, BMP, FEPR, CBCA #### [facility] ([id number]) [address], [facility] [address] [place] [address] MCV (RBC) [Entitic vol] 90 fL Normal 80-100 [facility] Comment on above: Performed By: #### 6 793-4, 52834-3, 6, BMP, FEPR, CBCA #### [facility] ([id number]) [address], [facility] [address] [place] [address] Monocytes (Bld) [#/Vol] 0.6 10*3/uL Normal 0-0.9 [facility] Comment on above: Performed By: #### 6 793-4, 79451-0, 6, BMP, FEPR, CBCA #### [facility] ([id number]) [address], [address] [address] Monocytes/100 WBC (Bld) 9.1 % Normal [facility] Comment on above: Performed By: #### 6 793-4, 34858-5, 2156-6, BMP, FEPR, CBCA #### [facility] ([id number]) [address], [facility] [address] [place] [address] Neutrophils/100 WBC (Bld) 80.8 % Normal [facility] Comment on above: Performed By: #### 6 793-4, 25036-4, 2157-6, BMP, FEPR, CBCA #### [facility] ([id number]) [address] [place] [address] Platelet mean volume (Bld) [Entitic vol] 6.5 fL Low 7-12 [facility] Comment on above: Performed By: #### 6 793-4, 80885-8, 2157-01, BMP, FEPR, CBCA #### [facility] ([id number]) [address], [address] [place] [address] Platelets (Bld) [#/Vol] 366 10*3/uL Normal 150-450 [facility] Comment on above: Performed By: #### 6 793-4, 57655-2, 2157-01, BMP, FEPR, CBCA #### [facility] ([id number]) [address], [facility] [address] [place] [address] RBC COUNT 3.46 X10E12/L Low 3.80-5.20 [facility] Comment on above: Performed By: #### 6 793-4, 51572-3, 2157-01, BMP, FEPR, CBCA #### [facility] ([id number]) [address], [address] [address] WBC (Bld) [#/Vol] 7.0 10*3/uL Normal 4.0-11.0 [facility] Comment on above: Performed By: #### 6 793-4, 22183-4, 2157-01, BMP, FEPR, CBCA #### [facility] ([id number]) [address] [address] ABSOLUTE BASOPHIL 0.0 X10E9/L Normal 0.0-0.2 [facility] Comment on above: Performed By: #### C BCA, BMP #### [facility] ([id number]) [address] [place] [address], [place] [address] ABSOLUTE NEUTROPHIL 4.4 X10E9/L Normal 1.5-6.6 [facility] Comment on above: Performed By: #### C TOOTIE, BMP #### [facility] ([id number]) [address] [place] [address] Basophils/100 WBC (Bld) 0.6 % Normal [facility] Comment on above: Performed By: #### Ned SOMMERS, BMP #### [facility] ([id number]) [address] [place] [address] Eosinophils (Bld) [#/Vol] 0.0 10*3/uL Normal 0.0-0.4 [facility] Comment on above: Performed By: #### Ned SOMMERS, BMP #### [facility] ([id number]) [address] [place] [address] Eosinophils/100 WBC (Bld) 0.5 % Normal [facility] Comment on above: Performed By: #### Ned SOMMERS, BMP #### [facility] ([id number]) [address] [place] [address] Erythrocyte distribution width (RBC) [Ratio] 14.0 % Normal 11.5-15.0 [facility] Comment on above: Performed By: #### Ned SOMMERS, BMP #### [facility] ([id number]) [address] [place] [address] Hematocrit (Bld) [Volume fraction] 32.4 % Low 35-47 [facility] Comment on above: Performed By: #### C TOOTIE, BMP #### [facility] ([id number]) [address] [place] [address] Hemoglobin (Bld) [Mass/Vol] 11.0 g/dL Low 11.7-15.5 [facility] Comment on above: Performed By: #### Ned SOMMERS, BMP #### [facility] ([id number]) [address] [place] [address] Lymphocytes (Bld) [#/Vol] 1.2 10*3/uL Normal 1.0-3.5 [facility] Comment on above: Performed By: #### C BCA, BMP #### [facility] ([id number]) [address] [place] [address] Lymphocytes/100 WBC (Bld) 19.0 % Normal [facility] Comment on above: Performed By: #### C TOOTIE, BMP #### [facility] ([id number]) [address] [place] [address] MCH (RBC) [Entitic mass] 30.7 pg Normal 27-34 [facility] Comment on above: Performed By: #### C TOOTIE, BMP #### [facility] ([id number]) [address] [place] [address] MCHC (RBC) [Mass/Vol] 34.1 g/dL Normal 32-36 [facility] Comment on above: Performed By: #### C TOOTIE, BMP #### [facility] ([id number]) [address] [place] [address] MCV (RBC) [Entitic vol] 90 fL Normal 80-100 [facility] Comment on above: Performed By: #### C TOOTIE, BMP #### [facility] ([id number]) [address] [place] [address] Monocytes (Bld) [#/Vol] 0.6 10*3/uL Normal 0-0.9 [facility] Comment on above: Performed By: #### C BCA, BMP #### [facility] ([id number]) [address] [place] [address] Monocytes/100 WBC (Bld) 9.4 % Normal [facility] Comment on above: Performed By: #### C BCA, BMP #### [facility] ([id number]) [address] [place] [address] Neutrophils/100 WBC (Bld) 70.5 % Normal [facility] Comment on above: Performed By: #### Ned BCA, BMP #### [facility] ([id number]) [address] [place] [address] Platelet mean volume (Bld) [Entitic vol] 6.4 fL Low 7-12 [facility] Comment on above: Performed By: #### C TOOTIE, BMP #### [facility] ([id number]) [address] [place] [address] Platelets (Bld) [#/Vol] 412 10*3/uL Normal 150-450 [facility] Comment on above: Performed By: #### Ned SOMMERS, BMP #### [facility] ([id number]) [address] [place] [address] RBC COUNT 3.59 X10E12/L Low 3.80-5.20 [facility] Comment on above: Performed By: #### Ned SOMMERS, BMP #### [facility] ([id number]) [address] [place] [address] WBC (Bld) [#/Vol] 6.2 10*3/uL Normal 4.0-11.0 [facility] Comment on above: Performed By: #### C TOOTIE, BMP #### [facility] ([id number]) [address] [place] [address] CK [Catalytic activity/Vol]o n 11-07-2023 CPK 35 U/L Normal 24-170 [facility] Comment on above: Performed By: #### 6 793-4, 30719-0, 2157-6, BMP, FEPR, CBCA #### [facility] ([id number]) [address] [facility] [place] [address] CT HIP LT WO CONTon 11-07-[address] HIP LT WO CONT CT HIP LT WO CONT History: Pain hearing a pop Hip replacement, periprosthetic fracture suspected PROCEDURE: Automated exposure control was utilized. CT performed through the left hip compared x-ray from 1:09 AM. Findings/Impression: * There is a periprosthetic fracture involving the femoral component extending all the way from the proximal and of the femoral component, to the most distal portion of the component and beyond. There is a gap of approximately 1 cm at the distal aspect Finalized by Kiran Hdz MD on 11/07/2023 2:[address] [facility] IRON PROFILEon 11-07-2023 Iron [Mass/Vol] 67 ug/dL Normal 50-170 [facility] Comment on above: Performed By: #### 6 793-4, 93238-9, 2157-6, BMP, FEPR, CBCA #### [facility] ([id number]) [address], [address] [address] IRON BINDING 392 ug/dL Normal 250-425 [facility] Comment on above: Performed By: #### 6 793-4, 12817-7, 2157-6, BMP, FEPR, CBCA #### [facility] ([id number]) [address], [address] [address] IRON SATURATION 17 % SATURATION Normal 15-50 [facility] Comment on above: Performed By: #### 6 793-4, 80452-6, 2157-6, BMP, FEPR, CBCA #### [facility] ([id number]) [address], [address] [address] Prealbumin IA [Mass/Vol]on 0 11-07-2023 Prealbumin [Mass/Vol] 21 mg/dL Normal 18-45 [facility] Comment on above: Performed By: #### 6 793-4, 65136-9, 2157-6, BMP, FEPR, CBCA #### [facility] ([id number]) [address] [facility], [address] [place] [address] URINALYSISon 11-07-2023 Bilirubin Ql (U) Negative Normal NEG [facility] BLOOD/HGB Trace Abnormal NEG [facility] Color (U) YELLOW Normal YELLOW [facility] Glucose Ql (U) Negative Normal NEG [facility] Ketones Ql (U) Negative Normal NEG [facility] Leukocyte esterase Test strip Ql (U) Negative Normal NEG [facility] MUCOUS PRESENT Abnormal NONE [facility] Nitrite Ql (U) Negative Normal NEG [facility] pH (U) 6.0 [pH] Normal 5.0-8.5 [facility] Protein Ql (U) Negative Normal NEG [facility] R.B.CELLS 4 /hpf Normal 0-5 [facility] Specific gravity (U) [Rel density] 1.017 Normal 1.003-1.035 [facility] SQUAMOUS EPITHELIUM <1 Normal 0-5 [facility] TURBIDITY CLEAR Normal CLEAR [facility] Urobilinogen (U) [Mass/Vol] mg/dL Normal <1.1 [facility] W.B.CELLS 2 /hpf Normal 0-5 [facility] Vitamin D+Metabolites [Mass/ Vol]on 11-07-2023 VITAMIN D 25 HYD TOT 7.0 ng/mL Low 30-100 [facility] Comment on above: Result Comment: Vitamin D status 25 [place] Vitamin D Deficiency <20 ng/mL Insufficiency 20-29 ng/mL Sufficiency 30-100 ng/mL Toxicity >100 ng/mL NOTE: A pediatric reference range has not been established by the lead consultant of this kit. The [place] [employer] recommends a Vitamin D level of = or >20ng/mL in infants and children. Performed By: #### 6 793-4, 82677-5, 2157-6, BMP, FEPR, CBCA #### [facility] ([id number]) [address] [place] [address] XR CHEST 1 VWon 11-07-2023 XR CHEST 1 VW XR CHEST 1 VW History: pre op Exam/Technique: Single AP view of the chest was obtained Comparison: Chest x-ray 09/18/2023 Findings: Cardiomediastinal silhouette is within normal range. Lungs are clear. However, exam does not include the entire left costophrenic angle. There is no focal areas of airspace disease, pleural effusion or pneumothorax. 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 Clinical correlation is advised IMPRESSION: There is no acute cardiopulmonary disease process. Chronic deformity of the left humeral head. Finalized by Galina Ferguson MD on 11/07/2023 4:33 PM Normal [facility] XR FEMUR LT 2+ VIEWSon 11-06 XR FEMUR LT 2+ VIEWS XR FEMUR LT 2+ VIEW S Exam: Left femur 4 view. HISTORY: Trauma fracture pain. IMPRESSION: 1. There is a periprosthetic fracture involving the femoral component of the left hip prosthesis. There is about 1 cm separation of fracture fragments. The prosthesis does not appear loosened. There is no dislocation. Finalized by Edgar Mcneil MD on 11/07/2023 12:19 PM Normal [facility] XR HIP LT 2-3 VIEWS W OR WO PELVISon 11-07-2023 XR HIP LT 2-3 VIEWS W OR WO PELVIS XR HIP LT 2-3 VIEWS W OR WO PELVIS XR HIP LT 2-3 VIEWS W OR WO PELVIS HISTORY: dislocation vs fracture. Hip pain COMPARISON: None. IMPRESSION: Left hip arthroplasty with prosthetic fracture and subsidence. Finalized by Jose Bai MD on 11/07/2023 2:[address] [facility] XR PELVIS 1 OR 2 VWSon 11-06 XR PELVIS 1 OR 2 VWS XR PELVIS 1 OR 2 VW S XR PELVIS 1 OR 2 VWS HISTORY: pre-op. Pelvic pain COMPARISON: 11/07/2023. IMPRESSION: No displaced or pelvic fracture. Bilateral hip arthroplasties. Proximal femoral fracture subsidence. Finalized by Jose Bai MD on 11/07/2023 10:22 PM Normal [facility] ABO Rh Repeaton 10-15-2023 ABO O [facility] Rh Nom (Bld) Positive [facility] XR HIP LT 2-3 VIEWS W OR WO PELVISon 10-15-2023 XR HIP LT 2-3 VIEWS W OR WO PELVIS XR HIP LT 2-3 VIEWS W OR WO PELVIS History: Status post left hip replacement . Exam/Technique: AP and lateral views of the left hip Comparison: None Findings: Total left hip arthroplasty has been performed. Hardware appears in anatomic alignment. No acute bony pathology. Subcutaneous emphysema compatible with recent procedure. IMPRESSION: * Grossly uncomplicated postoperative appearance left hip replacement. Finalized by Reymundo Granados DO on 10/15/2023 2:[address] [facility] XR Pelvis and Hip - left 2 V iewson 10-15-2023 History: Status post left hip replacement . Exam/Technique: AP and lateral views of the left hip Comparison: None Findings: Total left hip arthroplasty has been performed. Hardware appears in anatomic alignment. No acute bony pathology. Subcutaneous emphysema compatible with recent procedure. IMPRESSION: * Grossly uncomplicated postoperative appearance left hip replacement. Finalized by Reymundo Granados DO on 10/15/2023 2:45 PM Reymundo Piper DO - 10/15/2023 History: Status post left hip replacement . Exam/Technique: AP and lateral views of the left hip Comparison: None Findings: Total left hip arthroplasty has been performed. Hardware appears in anatomic alignment. No acute bony pathology. Subcutaneous emphysema compatible with recent procedure. IMPRESSION: * Grossly uncomplicated postoperative appearance left hip replacement. Finalized by Reymundo Granados DO on 10/15/2023 2:45 PM [facility] Radiology Study observation (narrative) [facility] XR Pelvis and Hip - left 2 V iewsOrdered By: Reymundo Granados on 10-15-2023 [facility] Work Phone: BASIC METABOLIC PANLon 09-18 Anion gap [Moles/Vol] 13 mmol/L Normal 5-15 [facility] Comment on above: Performed By: #### C BCA, BMP #### [facility] ([id number]) [address], [address] [place] [address] Calcium [Mass/Vol] 9.2 mg/dL Normal 8.5-10.5 [facility] Comment on above: Performed By: #### C BCA, BMP #### [facility] ([id number]) [address], [address] [place] [address] Chloride [Moles/Vol] 97 mmol/L Low 98-109 [facility] Comment on above: Performed By: #### C BCA, BMP #### [facility] ([id number]) [address] [place] [address] CO2 [Moles/Vol] 27 mmol/L Normal 22-32 [facility] Comment on above: Performed By: #### C BCA, BMP #### [facility] ([id number]) [address] [place] [address] Creatinine [Mass/Vol] 0.86 mg/dL Normal 0.40-1.00 [facility] Comment on above: Result Comment: METH OD TRACEABLE TO IDMS STANDARD Performed By: #### C BCA, BMP #### [facility] ([id number]) [address] [place] [address] GFR/1.73 sq M.predicted among non-blacks MDRD (S/P/Bld) [Vol rate/Area] 80 mL/min/{1.73_m2} Normal >59 [facility] Comment on above: Result Comment: Reported eGFR is based on the CKD-EPI 2020 equation that does not use a race coefficient. Performed By: #### C BCA, BMP #### [facility] ([id number]) [address] [place] [address] Glucose [Mass/Vol] 173 mg/dL High 65-99 [facility] Comment on above: Performed By: #### C BCA, BMP #### [facility] ([id number]) [address] [place] [address] Potassium [Moles/Vol] 4.1 mmol/L Normal 3.5-5.0 [facility] Comment on above: Performed By: #### C BCA, BMP #### [facility] ([id number]) [address] [place] [address] Sodium [Moles/Vol] 137 mmol/L Normal 134-146 [facility] Comment on above: Performed By: #### C BCA, BMP #### [facility] ([id number]) [address] [place] [address] Urea nitrogen [Mass/Vol] 11 mg/dL Normal 5-23 [facility] Comment on above: Performed By: #### C BCA, BMP #### [facility] ([id number]) [address] [place] [address] Basic Metabolic Panelon 08-25 Anion gap [Moles/Vol] 13 mmol/L 5 - 15 mmol/L [facility] Calcium [Mass/Vol] 9.2 mg/dL 8.5 - 10. 5 mg/dL [facility] Chloride [Moles/Vol] 97 mmol/L Low 98 - 10 9 mmol/L [facility] CO2 [Moles/Vol] 27 mmol/L 22 - 32 mmol/L [facility] Creatinine [Mass/Vol] 0.86 mg/dL 0.40 - 1.00 mg/dL [facility] Comment on above: METHOD TRACEABLE TO IDMS STANDARD eGFR (CKD-EPI)non-race dependent 80 - PINF [facility] Comment on above: Reported eGFR is based on the CKD-EPI 2020 equation that does not use a race coefficient. Glucose [Mass/Vol] 173 mg/dL High 65 - 99 mg/dL [facility] Interpretation and review of laboratory results Abnormal [facility] Potassium [Moles/Vol] 4.1 mmol/L 3.5 - 5.0 mmol/L [facility] Sodium [Moles/Vol] 137 mmol/L 134 - 146 mmol/L [facility] Urea nitrogen [Mass/Vol] 11 mg/dL 5 - 23 mg/dL [facility] CBC AND AUTO DIFFon 09-18-19 ABSOLUTE BASOPHIL 0.0 X10E9/L Normal 0.0-0.2 [facility] Comment on above: Performed By: #### C TOOTIE, BMP #### [facility] ([id number]) [address], [address] [place] [address] ABSOLUTE NEUTROPHIL 5.1 X10E9/L Normal 1.5-6.6 [facility] Comment on above: Performed By: #### Ned BCA, BMP #### [facility] ([id number]) [address] [place] [address] Basophils/100 WBC (Bld) 0.4 % Normal [facility] Comment on above: Performed By: #### C BCA, BMP #### [facility] ([id number]) [address] [place] [address] Eosinophils (Bld) [#/Vol] 0.1 10*3/uL Normal 0.0-0.4 [facility] Comment on above: Performed By: #### C BCA, BMP #### [facility] ([id number]) [address], [address] [place] [address] Eosinophils/100 WBC (Bld) 1.2 % Normal [facility] Comment on above: Performed By: #### C BCA, BMP #### [facility] ([id number]) [address], [address] [place] [address] Erythrocyte distribution width (RBC) [Ratio] 16.0 % High 11.5-15.0 [facility] Comment on above: Performed By: #### C BCA, BMP #### [facility] ([id number]) [address] [place] [address] Hematocrit (Bld) [Volume fraction] 42.3 % Normal 35-47 [facility] Comment on above: Performed By: #### C BCA, BMP #### [facility] ([id number]) [address] [place] [address] Hemoglobin (Bld) [Mass/Vol] 13.9 g/dL Normal 11.7-15.5 [facility] Comment on above: Performed By: #### C BCA, BMP #### [facility] ([id number]) [address], [address] [place] [address] Lymphocytes (Bld) [#/Vol] 1.1 10*3/uL Normal 1.0-3.5 [facility] Comment on above: Performed By: #### C BCA, BMP #### [facility] ([id number]) [address] [place] [address] Lymphocytes/100 WBC (Bld) 15.4 % Normal [facility] Comment on above: Performed By: #### C BCA, BMP #### [facility] ([id number]) [address] [place] [address] MCH (RBC) [Entitic mass] 31.2 pg Normal 27-34 [facility] Comment on above: Performed By: #### C BCA, BMP #### [facility] ([id number]) [address] [place] [address] MCHC (RBC) [Mass/Vol] 32.9 g/dL Normal 32-36 [facility] Comment on above: Performed By: #### C BCA, BMP #### [facility] ([id number]) [address], [address] [place] [address] MCV (RBC) [Entitic vol] 95 fL Normal 80-100 [facility] Comment on above: Performed By: #### C TOOTIE, BMP #### [facility] ([id number]) [address], [address] [place] [address] Monocytes (Bld) [#/Vol] 0.6 10*3/uL Normal 0-0.9 [facility] Comment on above: Performed By: #### C TOOTIE, BMP #### [facility] ([id number]) [address] [place] [address] Monocytes/100 WBC (Bld) 8.4 % Normal [facility] Comment on above: Performed By: #### Ned SOMMERS, BMP #### [facility] ([id number]) [address] [place] [address] Neutrophils/100 WBC (Bld) 74.6 % Normal [facility] Comment on above: Performed By: #### Ned SOMMERS, BMP #### [facility] ([id number]) [address] [place] [address] Platelet mean volume (Bld) [Entitic vol] 7.0 fL Normal 7-12 [facility] Comment on above: Performed By: #### Ned SOMMERS, BMP #### [facility] ([id number]) [address] [place] [address] Platelets (Bld) [#/Vol] 294 10*3/uL Normal 150-450 [facility] Comment on above: Performed By: #### Ned SOMMERS, BMP #### [facility] ([id number]) [address], [address] [place] [address] RBC COUNT 4.46 X10E12/L Normal 3.80-5.20 [facility] Comment on above: Performed By: #### Ned SOMMERS, BMP #### [facility] ([id number]) [address] [place] [address] WBC (Bld) [#/Vol] 6.9 10*3/uL Normal 4.0-11.0 [facility] Comment on above: Performed By: #### SLIME Marino BCA #### [facility] ([id number]) [address] [place] [address] CBC auto differentialon 08-25 Basophils (Bld) [#/Vol] 0.0 10*3/uL [facility] Basophils/100 WBC (Bld) 0.4 % [facility] Eosinophils (Bld) [#/Vol] 0.1 10*3/uL [facility] Eosinophils/100 WBC (Bld) 1.2 % [facility] Erythrocyte distribution width (RBC) [Ratio] 16.0 % High 11.5 - 15.0 % [facility] Hematocrit (Bld) [Volume fraction] 42.3 % 35 - 47 % [facility] Hemoglobin (Bld) [Mass/Vol] 13.9 g/dL 11.7 - 15.5 g/dL [facility] Interpretation and review of laboratory results Abnormal [facility] Lymphocytes (Bld) [#/Vol] 1.1 10*3/uL [facility] Lymphocytes/100 WBC (Bld) 15.4 % [facility] MCH (RBC) [Entitic mass] 31.2 pg 27 - 34 pg [facility] MCHC (RBC) [Mass/Vol] 32.9 g/dL 32 - 36 g/dL [facility] MCV (RBC) [Entitic vol] 95 fL 80 - 100 [facility]L [facility] Monocytes (Bld) [#/Vol] 0.6 10*3/uL [facility] Monocytes/100 WBC (Bld) 8.4 % [facility] Neutrophils (Bld) [#/Vol] 5.1 10*3/uL [facility] Neutrophils/100 WBC (Bld) 74.6 % [facility] Platelet mean volume (Bld) [Entitic vol] 7.0 fL 7 - 12 fL [facility] Platelets (Bld) [#/Vol] 294 10*3/uL [facility] RBC (Bld) [#/Vol] 4.46 10*6/uL [facility] [facility] WBC corrected for nucl RBC Auto (Bld) [#/Vol] 6.9 [facility] XR CHEST 2 VWSon 09-18-2023 XR CHEST 2 VWS XR CHEST 2 VWS CHEST RADIOGRAPH 09/18/2023 10:03 AM CLINICAL INDICATION: Preoperative testing, history of atrial fibrillation and hypertension. TECHNIQUE: Frontal and lateral views of the chest were obtained. COMPARISON: No comparison study. FINDINGS: Lungs: Lungs are free of infiltrate. There is no pleural effusion or pneumothorax. Heart: Heart size is normal. Mediastinum: Mediastinal contour is normal. Other: No displaced fractures identified. IMPRESSION: 1. No acute intrathoracic process. Finalized by Wes Rosales MD on 09/18/2023 11:[address] [facility] XR Chest PA and Lateralon CHEST RADIOGRAPH 09/18/2023 10:03 AM CLINICAL INDICATION: Preoperative testing, history of atrial fibrillation and hypertension. TECHNIQUE: Frontal and lateral views of the chest were obtained. COMPARISON: No comparison study. FINDINGS: Lungs: Lungs are free of infiltrate. There is no pleural effusion or pneumothorax. Heart: Heart size is normal. Mediastinum: Mediastinal contour is normal. Other: No displaced fractures identified. IMPRESSION: 1. No acute intrathoracic process. Finalized by Wes Rosales MD on 09/18/2023 11:43 AM SECTRAPACS Wes Rosales MD - 09/18/2023 CHEST RADIOGRAPH 09/18/2023 10:03 AM CLINICAL INDICATION: Preoperative testing, history of atrial fibrillation and hypertension. TECHNIQUE: Frontal and lateral views of the chest were obtained. COMPARISON: No comparison study. FINDINGS: Lungs: Lungs are free of infiltrate. There is no pleural effusion or pneumothorax. Heart: Heart size is normal. Mediastinum: Mediastinal contour is normal. Other: No displaced fractures identified. IMPRESSION: 1. No acute intrathoracic process. Finalized by Wes Rosales MD on 09/18/2023 11:43 AM [employer] [facility] Study observation (narrative) [employer] XR Chest PA and LateralOrder ed By: Wes Rosales on 09-18-2023 [employer] Work Phone: Office Visiton 07-24-2022 Follow-up visit [id number] Doris Badillo 1965 F Date Provider Department Center 07/24/2022 BARBARA DEMPSEY [facility] Family History Problem Relation Age of Onset Hypertension Mother Heart attack Father Family Status - Relation Status Age at Mother Father Level of Service:42068 ME OFFICE/OUTPATIENT ESTABLISHED MOD MDM 30-39 MIN Reason for Visit and Comments: Atrial Fibrillation [80] Hypertension [721488] Normal [facility] XR CSPINE OBL FLEX_EXTon XR CSPINE OBL FLEX_EXT EXAMINATION: XR CSPINE OBL FLEX_EXT HISTORY: Neck pain ; chronic neck pain radiating into shoulders COMPARISON: No relevant comparison available. FINDINGS: BONES: Slight reversal of the normal lordotic curvature. No fracture, spondylolisthesis, bone lesion. No change in alignment during flexion and extension. Mild degenerative facet arthropathy C5-C6, C6-C7. Degenerative changes of the uncovertebral joints likely contributing to narrowing of the neural foramen. DISC SPACES: Mild narrowing and degenerative endplate changes C3-C4, C4-C5. Moderate or greater at C5-C6 and C6-C7. PARASPINOUS: Negative. No paraspinous abnormality is seen. OTHER: Negative. IMPRESSION: 1. Moderate-marked degenerative changes of the lower cervical spine; more mild at the mid and upper levels. Consider MRI for further evaluation. Electronically authenticated by: BERT CARTER Date: 2022-01-16 16:49 Normal [facility] CBC AUTO DIFFon 04-25-2021 BASO # 0.0 103/ul Normal 0.0-0.1 [facility] Comment on above: Performed By: #### C BC #### [facility] [address] [address] Kitty Marium Basophils/100 WBC (Bld) 0.3 % Normal 0.2-2.0 [facility] Comment on above: Performed By: #### C BC #### [facility] [address] [id number] [place] Marium EO # 0.0 103/ul Normal 0.0-0.7 [facility] Comment on above: Performed By: #### C BC #### [facility] [address] [id number] [place] Marium Eosinophils/100 WBC (Bld) 0.5 % Critically low 0.9-7.0 [facility] Comment on above: Performed By: #### C BC #### [facility] [address] [place] [address] Kitty Marium Erythrocyte distribution width (RBC) [Ratio] 13.2 % Normal 11.0-15.0 [facility] Comment on above: Performed By: #### C BC #### [facility] [address] [place] [address] Kitty Marium Hematocrit (Bld) [Volume fraction] 45.1 % Normal 36.0-48.0 [facility] Comment on above: Performed By: #### C BC #### [facility] [address] [place], [place] [id number] [place] Marium Hemoglobin (Bld) [Mass/Vol] 14.9 g/dL Normal 12.0-16.0 [facility] Comment on above: Performed By: #### C BC #### [facility] [address] [place], [place] [id number] [place] Marium IG # 0.06 10e3/ul Critically high 0.00-0.03 [facility] Comment on above: Performed By: #### C BC #### [facility] [address] [place] [address] [place] Marium IG % 0.7 % Critically high 0.0-0.5 [facility] Comment on above: Performed By: #### C BC #### [facility] [address] [place], [place] [id number] [place] Marium LYMPH # 1.2 103/ul Normal 1.2-3.8 [facility] Comment on above: Performed By: #### C BC #### [facility] [address] [place], [place] [id number] [place] Marium Lymphocytes/100 WBC (Bld) 14.4 % Critically low 20.5-60.0 [facility] Comment on above: Performed By: #### C BC #### [facility] [address] [place], [place] [id number] [place]ium MANUAL DIFF REQ NO Normal [facility] Comment on above: Performed By: #### C BC #### [facility] [address] [place], [place] [phone] [place] Marium MCH (RBC) [Entitic mass] 31.6 pg Normal 26.7-34.0 [facility] Comment on above: Performed By: #### C BC #### [facility] [address] [place] [address] Kitty Marium MCHC (RBC) [Mass/Vol] 33.0 g/dL Normal 29.9-35.2 [facility] Comment on above: Performed By: #### C BC #### [facility] [address] [place], [place] [phone] [place] Marium MCV (RBC) [Entitic vol] 95.6 fL Normal 81.0-99.0 [facility] Comment on above: Performed By: #### C BC #### [facility] [address] [place], [place] [id number] [place] Marium MONO # 0.7 103/ul Normal 0.3-0.8 [facility] Comment on above: Performed By: #### C BC #### [facility] [address] [place], [place] [id number] [place] Marium Monocytes/100 WBC (Bld) 7.8 % Normal 1.7-12.0 [facility] Comment on above: Performed By: #### C BC #### [facility] [address] [place], [place] [phone] [place] Marium NEUT # 6.6 103/ul Critically high 1.4-6.5 [facility] Comment on above: Performed By: #### C BC #### [facility] [address] [place], [place] [phone] [place] Marium Neutrophils/100 WBC (Bld) 76.3 % Critically high 43.0-75.0 [facility] Comment on above: Performed By: #### C BC #### [facility] [address] [id number] [place] Causey Platelet mean volume (Bld) [Entitic vol] 9.2 fL Critically low 9.5-13.5 [facility] Comment on above: Performed By: #### C BC #### [facility] [address] [id number] [place] Causey PLT 282 103/ul Normal 150-450 [facility] Comment on above: Performed By: #### C BC #### [facility] [address] [phone] [place] Causey RBC 4.72 106/ul Normal 4.20-5.40 [facility] Comment on above: Performed By: #### C BC #### [facility] [address] [id number] [place] Causey WBC 8.6 103/ul Normal 4.0-11.0 [facility] Comment on above: Performed By: #### C BC #### [facility] [address] [id number] [place] Causey GLYCOHEMOGLOBIN A1Con 2020 ADA RECOMMENDATION ADA THERAPEUTIC TARG ET 6.0 - 7.0 ACTION SUGGESTED > 7.0 Normal [facility] Comment on above: Performed By: #### A 1C ####[facility] [address] [id number] Causey Glucose [Mass/Vol] 137 mg/dL Normal [facility] Comment on above: Performed By: #### A 1C ####[facility] [address] [phone] Causey HbA1c (Bld) [Mass fraction] 6.4 % Critically high <=6.0 [facility] Comment on above: Performed By: #### A 1C ####[facility] [address] [phone] Causey LIPID PROFILEon 04-25-2021 CHOL-HDL RATIO NORM SEE BELOW [facility] Comment on above: Result Comment: 3.3 - 4.4 LOW RISK 4.4 - 7.1 AVERAGE RISK 7.1 - 11.0 MODERATE RISK >11.0 HIGH RISK Performed By: #### B MP, LIVER, TSH, LIPID #### [facility] [address] [place], [place] [address] Kitty Marium Cholesterol [Mass/Vol] 235 mg/dL Critically high <=200 [facility] Comment on above: Performed By: #### B MP, LIVER, TSH, LIPID #### [facility] [address] [place], [place] [address] Kitty Marium Cholesterol in HDL [Mass/Vol] 59 mg/dL Normal [facility] Comment on above: Performed By: #### B MP, LIVER, TSH, LIPID #### [facility] [address] [place], [place] [address] Kitty Marium Cholesterol in LDL [Mass/Vol] 160.0 mg/dL Normal [facility] Comment on above: Performed By: #### B MP, LIVER, TSH, LIPID #### [facility] [address], [place] [address] Kitty Marium Cholesterol.total/Ch olesterol in HDL [Mass ratio] 4.0 {ratio} Normal [facility] Comment on above: Performed By: #### B MP, LIVER, TSH, LIPID #### [facility] [address] [place], [place] [address] [place] Marium HDL NORMAL > or = 60 mg/dl - LO W CARDIOVASCULAR RISK <40 mg/dl - HIGH CARDIOVASCULAR RISK Normal [facility] Comment on above: Performed By: #### B MP, LIVER, TSH, LIPID #### [facility] [address], [place] [address] [place] Marium LDL CALC NORMAL SEE BELOW Normal [facility] Comment on above: Result Comment: <100 mg/dl OPTIMAL 100 - 129 mg/dl NEAR OR ABOVE OPTIMAL 130 - 159 mg/dl BORDERLINE HIGH 160 - 189 mg/dl HIGH >190 mg/dl VERY HIGH Performed By: #### B MP, LIVER, TSH, LIPID #### [facility] [address] [place], [place] [address] Kitty Marium Triglyceride [Mass/Vol] 80 mg/dL Normal <=150 [facility] Comment on above: Performed By: #### B MP, LIVER, TSH, LIPID #### [facility] [address] [phone] [place] Marium VLDL CALC 16.0 mg/dL Normal [facility] Comment on above: Performed By: #### B MP, LIVER, TSH, LIPID #### [facility] [address] [id number] Kitty Marium LIVER PROFILEon 04-25-2021 Albumin [Mass/Vol] 3.9 g/dL Normal 3.5-5.0 [facility] Comment on above: Performed By: #### B MP, LIVER, TSH, LIPID #### [facility] [address] [address] [place] Marium Albumin/Globulin [Mass ratio] 1.0 {ratio} Normal [facility] Comment on above: Performed By: #### B MP, LIVER, TSH, LIPID #### [facility] [address] [phone] [place] Marium ALP [Catalytic activity/Vol] 91 U/L Normal 38-126 [facility] Comment on above: Performed By: #### B MP, LIVER, TSH, LIPID #### [facility] [address] [phone] [place] Marium ALT [Catalytic activity/Vol] 29 U/L Normal 9-52 [facility] Comment on above: Performed By: #### B MP, LIVER, TSH, LIPID #### [facility] [address] [address] [place] Marium AST [Catalytic activity/Vol] 24 U/L Normal 14-36 [facility] Comment on above: Performed By: #### B MP, LIVER, TSH, LIPID #### [facility] [address] [phone] [place] Marium BILI, CONJUGATED 0.1 mg/dL Normal 0.0-0.3 [facility] Comment on above: Performed By: #### B MP, LIVER, TSH, LIPID #### [facility] [address] [address] [place] Marium Bilirubin [Mass/Vol] 0.5 mg/dL Normal 0.2-1.3 [facility] Comment on above: Performed By: #### B MP, LIVER, TSH, LIPID #### [facility] [address] [place], [place] [phone] [place] Marium Globulin (S) [Mass/Vol] 4.1 g/dL Normal [facility] Comment on above: Performed By: #### B MP, LIVER, TSH, LIPID #### [facility] [address] [phone] [place] Marium Protein [Mass/Vol] 8.0 g/dL Normal 6.1-8.2 [facility] Comment on above: Performed By: #### B MP, LIVER, TSH, LIPID #### [facility] [address] [place], [place] [phone] Kitty Marimu PROF CHEM 8 (BAS METB)on Anion gap [Moles/Vol] 11.0 mmol/L Normal [facility] Comment on above: Performed By: #### B MP, LIVER, TSH, LIPID #### [facility] [address] [place] [address] Kitty Marium Calcium [Mass/Vol] 9.7 mg/dL Normal 8.4-10.2 [facility] Comment on above: Performed By: #### B MP, LIVER, TSH, LIPID #### [facility] [address] [place] [address] [place] Marium Chloride [Moles/Vol] 98 mmol/L Normal 98-107 [facility] Comment on above: Performed By: #### B MP, LIVER, TSH, LIPID #### [facility] [address] [place], [place] [phone] [place] Marium CO2 [Moles/Vol] 33.6 mmol/L Critically high 22.0-30.0 [facility] Comment on above: Performed By: #### B MP, LIVER, TSH, LIPID #### [facility] [address] [phone] [place] Marium Creatinine [Mass/Vol] 0.86 mg/dL Normal 0.52-1.04 [facility] Comment on above: Performed By: #### B MP, LIVER, TSH, LIPID #### [facility] [address] [phone] [place] Marium EGFR-AF SUDANESE >60 Normal >=60 [facility] Comment on above: Performed By: #### B MP, LIVER, TSH, LIPID #### [facility] [address] [phone] [place] Marium EGFR-NON AF SUDANESE >60 Normal >=60 [facility] Comment on above: Performed By: #### B MP, LIVER, TSH, LIPID #### [facility] [address] [address] [place] Marium Glucose [Mass/Vol] 105 mg/dL Normal 74-106 [facility] Comment on above: Performed By: #### B MP, LIVER, TSH, LIPID #### [facility] [address] [address] [place] Marium Potassium [Moles/Vol] 3.6 mmol/L Normal 3.4-5.0 [facility] Comment on above: Performed By: #### B MP, LIVER, TSH, LIPID #### [facility] [address] [address] [place] Marium Sodium [Moles/Vol] 139 mmol/L Normal 137-145 [facility] Comment on above: Performed By: #### B MP, LIVER, TSH, LIPID #### [facility] [address] [address] [place] Marium Urea nitrogen [Mass/Vol] 12.0 mg/dL Normal 7.0-17.0 [facility] Comment on above: Performed By: #### B MP, LIVER, TSH, LIPID #### [facility] [address] [address] [place] Marium Urea nitrogen/Creatinine [Mass ratio] 14.0 mg/mg Normal [facility] Comment on above: Performed By: #### B MP, LIVER, TSH, LIPID #### [facility] [address] [place], [place] [address] [place] Causey TSHon 04-25-2021 TSH 0.894 uIU/mL Normal 0.470-4.680 The [facility] Comment on above: Performed By: #### B MP, LIVER, TSH, LIPID #### [facility] [address] [address] [place] Causey TSH RANGE SEE BELOW Normal [facility] Comment on above: Result Comment: <0.3 4 UIU/ml HYPERTHYROID 0.34-5.60 UIU/ml EUTHYROID >5.60 UIU/ml HYPOTHYROID Performed By: #### B MP, LIVER, TSH, LIPID #### [facility] [address] [address] [place] Causey VITAMIN D 25 OHon 04-25-2021 VIT D 25-OH 41.9 ng/mL Normal [facility] Comment on above: Performed By: #### V ITAD ####[facility] [address] [id number] Causey VIT D RANGES SEE BELOW Normal [facility] Comment on above: Result Comment: <20 ng/mL Vit D deficient 20 - <30 ng/mL Vit D insufficient 30 - 100 ng/mL Vit D sufficient >100 ng/mL Potential Toxicity Performed By: #### V ITAD ####[facility] [address] [address]Gerken Marium ASYMPTOMATIC COVID-19 ANTIGE Non 03-16-2021 EUA Statement SEE BELOW Normal The [facility] Comment on above: Result Comment: This test has not been FDA cleared or approved, but has been authorized by the FDA under an Emergency Use Authorization (EUA) for use by authorized laboratories certified under CLIA that meet the requirements to perform moderate or high complexity testing. This test has been authorized only for the detection of proteins from SARS-CoV-2, not for any other viruses or pathogens. The emergency use of this test is authorized for the duration of the declaration that circumstances exist justifying the authorization of emergency use of in vitro diagnostic tests for detection and/or diagnosis of Covid-19 under section 564(b)(1) of the Act, 21 U.S.C. 360bbb-3(b)(1), unless the declaration is terminated or authorization is revoked sooner. Performed By: #### C DEE DEE #### [facility] [address] [place] [address] [place] Causey SARS-CoV-2 (COVID-19) RNA NATI+probe Ql (Unsp spec) Negative Normal NEGATIVE [facility] Comment on above: Result Comment: Nega tive results are presumptive. They do not preclude infection and should not be used as the sole basis for treatment decisions. Additional confirmatory testing by a molecular method should be considered. Performed By: #### C DEE DEE #### [facility] [address] [place] [address] [place] Causey CBC AUTO DIFFon 03-01-2021 BASO # 0.0 103/ul Normal 0.0-0.1 [facility] Comment on above: Performed By: #### C BC ####[facility] [address] [place], [place] [address]Ger[place] Marium Basophils/100 WBC (Bld) 0.2 % Normal 0.2-2.0 [facility] Comment on above: Performed By: #### C BC ####[facility] [address] [place] [address] Mar[place] EO # 0.1 103/ul Normal 0.0-0.7 [facility] Comment on above: Performed By: #### C BC ####[facility] [address] [address]Ger[place] Marium Eosinophils/100 WBC (Bld) 0.6 % Critically low 0.9-7.0 [facility] Comment on above: Performed By: #### C BC ####[facility] [address] [place], [place] [address]Geryissel Causey Erythrocyte distribution width (RBC) [Ratio] 13.1 % Normal 11.0-15.0 [facility] Comment on above: Performed By: #### C BC ####[facility] [address] [place] [address] [place] Hematocrit (Bld) [Volume fraction] 46.0 % Normal 36.0-48.0 [facility] Comment on above: Performed By: #### C BC ####[facility] [address] [place] Hemoglobin (Bld) [Mass/Vol] 15.7 g/dL Normal 12.0-16.0 [facility] Comment on above: Performed By: #### C BC ####[facility] [address] [place] [address] Mar[place] IG # 0.06 10e3/ul Critically high 0.00-0.03 [facility] Comment on above: Performed By: #### C BC ####[facility] [address] [place] [address] [place] IG % 0.5 % Normal 0.0-0.5 [facility] Comment on above: Performed By: #### C BC ####[facility] [address] [place] [address] [place] LYMPH # 1.2 103/ul Normal 1.2-3.8 [facility] Comment on above: Performed By: #### C BC ####[facility] [address] [place] [address] [place] Lymphocytes/100 WBC (Bld) 9.4 % Critically low 20.5-60.0 [facility] Comment on above: Performed By: #### C BC ####[facility] [address] [place] [address] [place] MANUAL DIFF REQ NO Normal [facility] Comment on above: Performed By: #### C BC ####[facility] [address] [place] [address] [place] MCH (RBC) [Entitic mass] 31.5 pg Normal 26.7-34.0 [facility] Comment on above: Performed By: #### C BC ####[facility] [address] [place] [address] [place] MCHC (RBC) [Mass/Vol] 34.1 g/dL Normal 29.9-35.2 [facility] Comment on above: Performed By: #### C BC ####[facility] [address] [address]Kitty Causey MCV (RBC) [Entitic vol] 92.4 fL Normal 81.0-99.0 [facility] Comment on above: Performed By: #### C BC ####[facility] [address] Causey MONO # 0.7 103/ul Normal 0.3-0.8 [facility] Comment on above: Performed By: #### C BC ####[facility] [address] [place] Monocytes/100 WBC (Bld) 5.6 % Normal 1.7-12.0 [facility] Comment on above: Performed By: #### C BC ####[facility] [address] [place] [address] [place] NEUT # 11.0 103/ul Critically high 1.4-6.5 [facility] Comment on above: Performed By: #### C BC ####[facility] [address] [place], [place] [address]yissel Causey Neutrophils/100 WBC (Bld) 83.7 % Critically high 43.0-75.0 [facility] Comment on above: Performed By: #### C BC ####[facility] [address] Causey Platelet mean volume (Bld) [Entitic vol] 8.8 fL Critically low 9.5-13.5 [facility] Comment on above: Performed By: #### C BC ####[facility] [address] Mar[place] PLT 324 103/ul Normal 150-450 [facility] Comment on above: Performed By: #### C BC ####[facility] [address] Coleen RBC 4.98 106/ul Normal 4.20-5.40 [facility] Comment on above: Performed By: #### C BC ####[facility] [address] [place] WBC 13.1 103/ul Critically high 4.0-11.0 [facility] Comment on above: Performed By: #### C BC ####[facility] [address] [place], [place] [address]FqodbuKitty Causey CTA CHEST WO W CONon 021 CTA CHEST WO W CON EXAMINATION: CTA JAGDEEP ST WO W CON HISTORY: CHEST PAIN, UNSPECIFIED COMPARISON: No relevant comparison available. TECHNIQUE: Axial, Coronal, and Sagittal images were created without and with IV contrast. Dose reduction techniques were achieved by using automated exposure control and/or adjustment of mA and/or kV according to patient size and/or use of iterative reconstruction technique. FINDINGS: LUNGS: Minimal dependent atelectasis PLEURA: No mass, effusion, or pneumothorax. VASCULATURE: No filling defect demonstrated within the central pulmonary arteries to suggest a pulmonary embolus MIKE: No mass or adenopathy. MEDIASTINUM: No mass or adenopathy. CARDIAC: No enlargement, pericardial thickening, or significant calcification. AORTA: No aneurysm or dissection. CHEST WALL: No mass or axillary adenopathy. BONES: No bone lesion or fracture. LIMITED ABDOMEN: Hypoattenuation of the liver suggesting hepatic steatosis OTHER: Negative. IMPRESSION: No central pulmonary embolus Electronically authenticated by: SUZETTE ROWELL Date: 2021-03-01 09:54 Normal The [facility] D-DIMERon 03-01-2021 D-DIMER 1.46 mg/L FEU Critically high 0.19-0.50 The [facility] Comment on above: Result Comment: Test repeated. Critical value verified. Performed By: #### D DIM, PT ####[facility] [address] [place], [place] [address]Ksolgn Marium D-DIMER COMMENTS SEE BELOW Normal The [facility] Comment on above: Result Comment: Incr eases in D-Dimer concentration observed with thromboembolic events can be variable due to localization, size, and age of the thrombus. Therefore, a thromboembolic event cannot be diagnosed with certainty on the basis of the reference range. D-Dimers may also be elevated for a variety of disorders including: advanced age, , coronary disease, cancer, liver disease, infection, inflammation, hematoma, DIC, trauma, post-surgery, diabetes, thrombolytic or anticoagulant therapy, stress, and generalized hospitalization. Performed By: #### D DIM, PT ####[facility] [address] [place] [address] [place] ER URINE PROFILEon 1 Bilirubin Ql (U) Negative Normal NEGATIVE The [facility] Comment on above: Performed By: #### E RUR ####[facility] [address] [place] [address] [place] Clarity (U) CLEAR Normal CLEAR The [facility] Comment on above: Performed By: #### E RUR ####[facility] [address] [place] [address] [place] Color (U) YELLOW Normal YELLOW The [facility] Comment on above: Performed By: #### E RUR ####[facility] [address] [place] [address] [place] ERUAHD A micrscopic examination will be performed if indicated. Normal The [facility] Comment on above: Performed By: #### E RUR ####[facility] [address] [place] [address] [place] Glucose Ql (U) Negative Normal NEGATIVE The [facility] Comment on above: Performed By: #### E RUR ####[facility] [address] [place] [address] [place] Hemoglobin Ql (U) Negative Normal NEGATIVE The [facility] Comment on above: Performed By: #### E RUR ####[facility] [address] [place] [address] [place] Ketones Ql (U) TRACE Abnormal NEGATIVE The [facility] Comment on above: Performed By: #### E RUR ####[facility] [address] [place] [address] [place] LEUKOCYTES Negative Normal NEGATIVE [facility] Comment on above: Performed By: #### E RUR ####[facility] [address] [place] Nitrite Ql (U) Negative Normal NEGATIVE [facility] Comment on above: Performed By: #### E RUR ####[facility] [address] [place] pH (U) 6.0 [pH] Normal 5-9 [facility] Comment on above: Performed By: #### E RUR ####[facility] [address] [place] [address] [place] SPEC GRAVITY 1.015 Normal 1.005-<=1.025 [facility] Comment on above: Performed By: #### E RUR ####[facility] [address] [place] [address] [place] UA PROTEIN Negative Normal NEGATIVE/ TRACE [facility] Comment on above: Performed By: #### E RUR ####[facility] [address] [place] [address] [place] UR MICRO IND NOT INDICATED Normal [facility] Comment on above: Performed By: #### E RUR ####[facility] [address] [place] [address] [place] Urobilinogen Qn (U) 0.2 {Brian'U}/dL Normal 0.2 - 1. 0 [facility] Comment on above: Performed By: #### E RUR ####[facility] [address] [place] [address] [place] LIPASEon 03-01-2021 Lipase [Catalytic activity/Vol] 59.0 U/L Normal 23.0-300.0 [facility] Comment on above: Performed By: #### L IPA ####[facility] [address] [place] [address] [place] PROF 14(COMP METB)on 021 Albumin [Mass/Vol] 3.6 g/dL Normal 3.5-5.0 [facility] Comment on above: Performed By: #### C MP, HSTROPN #### [facility] [address] [address] [place] Albumin/Globulin [Mass ratio] 0.8 {ratio} Normal [facility] Comment on above: Performed By: #### C JENISE HSTROPN #### [facility] [address] [address] [place] ALP [Catalytic activity/Vol] 101 U/L Normal 38-126 [facility] Comment on above: Performed By: #### C JENISE, HSTROPN #### [facility] [address] [address] [place] ALT [Catalytic activity/Vol] 38 U/L Normal 9-52 [facility] Comment on above: Performed By: #### C JENISE HSTROPN #### [facility] [address] [place] [address] [place] Anion gap [Moles/Vol] 16.7 mmol/L Normal [facility] Comment on above: Performed By: #### C JENISE HSTROPN #### [facility] [address] [place] [address] [place] AST [Catalytic activity/Vol] 55 U/L Critically high 14-36 [facility] Comment on above: Performed By: #### C JENISE HSTROPN #### [facility] [address] [place] [address] [place] Bilirubin [Mass/Vol] 0.4 mg/dL Normal 0.2-1.3 [facility] Comment on above: Performed By: #### C JENISE HSTROPN #### [facility] [address] [place] [address] [place] Calcium [Mass/Vol] 9.0 mg/dL Normal 8.4-10.2 The [facility] Comment on above: Performed By: #### C JENISE HSTROPN #### [facility] [address] [place] [address] [place] Chloride [Moles/Vol] 100 mmol/L Normal 98-107 [facility] Comment on above: Performed By: #### C JENISE HSTROPN #### [facility] [address] [place], [place] [address] [place] CO2 [Moles/Vol] 28.2 mmol/L Normal 22.0-30.0 [facility] Comment on above: Performed By: #### C JENISE, HSTROPN #### [facility] [address] [place], [place] [address] [place] Creatinine [Mass/Vol] 0.90 mg/dL Normal 0.52-1.04 [facility] Comment on above: Performed By: #### C JENISE, HSTROPN #### [facility] [address] [id number] [place] EGFR-AF SUDANESE >60 Normal >=60 [facility] Comment on above: Performed By: #### C JENISE, HSTROPN #### [facility] [address] [address] [place] EGFR-NON AF SUDANESE >60 Normal >=60 [facility] Comment on above: Performed By: #### C JENISE, HSTROPN #### [facility] [address] [id number] [place] Globulin (S) [Mass/Vol] 4.5 g/dL Normal [facility] Comment on above: Performed By: #### C JENISE, HSTROPN #### [facility] [address] [address] [place] Glucose [Mass/Vol] 211 mg/dL Critically high 74-106 T [facility] Comment on above: Performed By: #### C JENISE, HSTROPN #### [facility] [address] [id number] [place] Potassium [Moles/Vol] 3.9 mmol/L Normal 3.4-5.0 [facility] Comment on above: Performed By: #### C JENISE, HSTROPN #### [facility] [address] [phone] [place] Protein [Mass/Vol] 8.1 g/dL Normal 6.1-8.2 [facility] Comment on above: Performed By: #### C JENISE, HSTROPN #### [facility] [address] [place], [place] [address] [place] Sodium [Moles/Vol] 141 mmol/L Normal 137-145 The [facility] Comment on above: Performed By: #### C MP, HSTROPN #### [facility] [address] [place], [place] [address] [place] Urea nitrogen [Mass/Vol] 8.0 mg/dL Normal 7.0-17.0 [facility] Comment on above: Performed By: #### C MP, HSTROPN #### [facility] [address] [place], [place] [address] [place] Urea nitrogen/Creatinine [Mass ratio] 8.9 mg/mg Normal [facility] Comment on above: Performed By: #### C JENISE, HSTROPN #### [facility] [address] [phone] [place] PROTIMEon 03-01-2021 INR Coag (PPP) [Relative time] 1.00 {INR} Normal [facility] Comment on above: Performed By: #### D DIM, PT ####[facility] [address] [phone] Causey INR GUIDELINES SEE BELOW Normal [facility] Comment on above: Result Comment: MATT RED INR: 2.0 - 3.0 CONDITIONS NOT LISTED BELOW 2.5 - 3.5 FOR PROSTHETIC HEART VALVE REPLACEMENT 2.5 - 3.5 RECURRENT THROMBOSIS Performed By: #### D DIM, PT ####[facility] [address] [id number] Marium PT Coag (PPP) [Time] 10.9 s Normal 9.0-11.6 [facility] Comment on above: Performed By: #### D DIM, PT ####[facility] [address] [address] TROPONIN, HIGH SENSITIVITYon 03-01-2021 HSTROP 5.0 pg/mL Normal 4.0-35.5 [facility] Comment on above: Result Comment: CUT- OFF POINTS HAVE BEEN ESTABLISHED BASED ON THE FOURTH UNIVERSAL DEFINITIONS OF MYOCARDIAL INFARCTION. THE UPPER REFERENCE LIMIT (URL) OF TROPONIN, DEFINED THE 99TH PERCENTILE OF cTnI DISTRIBUTION IN A REFERENCE POPULATION, HAS BEEN CONFIRMED THE DECISION THRESHOLD FOR AL DIAGNOSIS. Performed By: #### C JENISE, HSTROPN #### [facility] [address] [phone] [place] XR CHEST 1 Von 03-01-2021 XR CHEST 1 V EXAMINATION: XR CHES T 1 V HISTORY: CHEST PAIN, UNSPECIFIED COMPARISON: 04/04/2020 TECHNIQUE: AP portable erect FINDINGS: LUNGS: No significant pulmonary parenchymal abnormalities. VASCULATURE: No increased pulmonary vasculature. PLEURA: No pneumothorax, effusion, or pleural thickening. CARDIAC: No cardiomegaly or cardiac silhouette abnormality. MEDIASTINUM: No visible mass or adenopathy. BONES: No fracture or visible bone lesion. OTHER: EKG wires IMPRESSION: No acute disease. Electronically authenticated by: SUZETTE ROWELL Date: 2021-03-01 07:52 Normal [facility] Vital Signs Date Time Vital Sign Value Performing Clinician Facility 06-21-2024 15:31-0400 Body height 154.9 cm Sam Hancock MD Work Phone: [facility] 06-21-2024 15:31-0400 Body mass index (BMI) [Ratio] 48.37 kg/m2 Sam Hancock MD Work Phone: [facility] 06-21-2024 15:31-0400 Body temperature 98.01 [degF] Sam Hancock MD Work Phone: [facility] 06-21-2024 15:31-0400 Body weight 116.12 kg Sam Hancock MD Work Phone: [facility] 06-21-2024 15:31-0400 Diastolic blood pressure 92 mm[Hg] Sam Hancock MD Work Phone: [facility] 06-21-2024 15:31-0400 Heart rate 121 /min Sam Hancock MD Work Phone: [facility] 06-21-2024 15:31-0400 Respiratory rate 24 /min Sam Hancock MD Work Phone: [facility] [employer] 06-21-2024 15:31-0400 SaO2% (BldA) [Mass fraction] 96 % Sam Hancock MD Work Phone: [facility] [employer] 06-21-2024 15:31-0400 Systolic blood pressure 190 mm[Hg] Sam Hancock MD Work Phone: [facility] [employer] 10-17-2023 07:44-0500 Body temperature 98.49 [degF] [facility] Ke[facility] 10-17-2023 07:44-0500 Diastolic blood pressure 82 mm[Hg] [facility] Ke[facility] 10-17-2023 07:44-0500 Heart rate 90 /min [facility] 10-17-2023 07:44-0500 Respiratory rate 12 /min Ever Keen DO [facility] 10-17-2023 07:44-0500 SaO2% (BldA) [Mass fraction] 95 % Ever Keen DO [facility] 10-17-2023 07:44-0500 Systolic blood pressure 125 mm[Hg] Ever Keen [facility] 10-17-2023 02:40-0500 Body mass index (BMI) [Ratio] 44.46 kg/m2 Ever Keen DO [facility] 10-17-2023 02:40-0500 Body weight 106.73 kg Ever Keen DO [facility] 10-15-2023 09:19-0500 Body height 154.9 cm Ever Keen DO [facility] 09-15-2023 07:01-0500 Body height 154.9 cm [facility] 09-15-2023 07:01-0500 Body mass index (BMI) [Ratio] 41.19 kg/m2 Pm 1 [facility] 09-15-2023 07:01-0500 Body weight 98.88 kg Pm 1 [facility] Encounters Encounter Date Encounter Type Care Provider Facility Start: 07-01-2024 End: 07-01-2024 Orders Only Sam Hancock MD Work Phone: [facility] Comment on above: Adult hypothyroidism (CMS/HCC) (Primary Dx) Edema of both legs ( Primary Dx) Start: 06-30-2024 End: 06-30-2024 External Result Encounter Sam Hancock MD Work Phone: [facility] External Department Unsolicited Start: 06-30-2024 End: 06-30-2024 External Result Encounter Sam Hancock MD Work Phone: [facility] External Department Unsolicited Start: 06-30-2024 End: 06-30-[address] [facility] Start: 06-21-2024 End: 06-21-2024 ambulatory SAM HANCOCK Not Available Start: 06-21-2024 End: 06-21-2024 Office outpatient visit 25 minutes Sam Hancock MD Work Phone: [facility] Comment on above: Essential hypertensi on, benign (CMS/HCC) (Primary Dx); Major depressive disorder, recurrent episode, moderate degree (CMS/HCC); Generalized anxiety disorder (CMS/HCC); Primary osteoarthritis of left hip; Bleeding hemorrhoids; Class 3 severe obesity due to excess calories with serious comorbidity and body mass index (BMI) of 45.0 to 49.9 in adult (CMS/HCC); Prediabetes; Primary hypothyroidism (CMS/HCC); Encounter for long-term (current) use of medications; Dyslipidemia (CMS/HCC); Morbid obesity due to excess calories (CMS/HCC) Start: 06-21-2024 End: 06-21-2024 Bamboo flowsheet Sam Hancock MD Work Phone: [facility] Start: 06-21-2024 End: 06-21-2024 Bambojodi flowsheet Sam Hancock MD Work Phone: [facility] Start: 04-28-2024 End: 04-28-2024 ambulatory [facility] Start: 01-21-2024 End: 01-21-2024 ambulatory [facility] Start: 11-24-2023 End: 11-24-2023 ambulatory [facility] Start: 11-18-2023 End: 11-19-2023 ambulatory SAM GOMEZBILLIEAbner Facility:[facility] Start: 11-14-2023 End: 11-14-2023 Evaluation and management of inpatient CLAUDY Annie ROSALBA [facility] Start: 11-10-2023 End: 11-14-2023 Evaluation and management of inpatient FRANCO INEZ [facility] Start: 11-09-2023 End: 11-14-2023 [facility] Start: 11-09-2023 End: 11-14-2023 Evaluation and management of inpatient [facility] Start: 11-07-2023 End: 11-14-2023 Evaluation and management of inpatient [facility] Start: 11-07-2023 End: 11-14-2023 Evaluation and management of inpatient [facility] Start: 11-07-2023 End: 11-14-2023 Emergency department patient visit [facility] Start: 11-07-2023 Encounter for other preprocedural examination LIT GIFFORD [facility] Start: 11-07-2023 End: 11-14-2023 Evaluation and management of [facility] Start: 11-07-2023 End: 11-14-2023 Emergency department patient visit [facility] Start: 11-05-2023 End: 11-05-2023 ambulatory VIANCA TELLES Not Available Start: 10-29-2023 End: 10-29-2023 ambulatory [facility]ER [facility] Not Available Start: 10-29-2023 End: 10-29-2023 ambulatory VIANCA Yo TELLES Not Available Start: 10-22-2023 End: 10-22-2023 ambulatory EVER [facility] Not Available Start: 10-21-2023 End: 10-21-2023 ambulatory VIANCA Ram TELLES Not Available Start: 10-19-2023 End: 10-19-2023 ambulatory NICOLE GUIDRY Not Available Start: 10-18-2023 End: 10-18-[address] [facility] Start: 10-15-2023 End: 10-18-2023 ambulatory [facility] Start: 10-15-2023 End: 10-17-2023 ambulatory [facility] Start: 10-15-2023 End: 10-17-2023 Subsequent hospital visit by physician Ever Titusston Work Phone: [facility] Comment on above: Primary localized os teoarthritis of left hip (Primary Dx) Start: 10-15-2023 End: 10-18-2023 ambulatory [facility] Start: 10-06-2023 Refill Sam Eng Work Phone: [facility] Comment on above: Essential hypertensi on, benign (CMS/HCC) (Primary Dx) Start: 10-06-2023 End: 10-06-2023 ambulatory [facility] Start: 09-24-2023 Patient encounter status Sam Hancock MD Work Phone: [facility] Start: 09-24-2023 End: 06-21-2024 Preoperative state Sam Hancock MD Work Phone: [facility] Start: 09-24-2023 End: 09-24-2023 ambulatory SAM HANCOCK Not Available Start: 09-18-2023 End: 09-18-2023 Patient encounter procedure [facility] Pre-Admission Testing 1 [facility] - Pre Ad[facility] Comment on above: Preop examination (P rimary Dx); Hypertension, unspecified type; Atrial fibrillation, unspecified type ([facility]-HCC); BMI 40.0-44.9, adult ([facility]) Start: 09-18-2023 End: 09-18-2023 Preprocedural examination done [facility] 1 [facility] Start: 09-18-2023 End: 09-18-[address] [facility] Start: 09-18-2023 Encounter for other preprocedural examination SAM HANCOCK [facility] Start: 09-17-2023 End: 09-17-2023 ambulatory EVER KEEN Not Available Start: 09-09-2023 End: 09-09-2023 ambulatory CHRISTY CARY Not Available Start: 08-25-2023 End: 08-25-2023 ambulatory EVER KEEN Not Available Start: 08-11-2023 End: 08-11-2023 ambulatory MORGAN RICHARDSON Not Available Start: 07-06-2023 End: 07-06-2023 ambulatory AZEEM DAVIDSON Not Available Start: 07-24-2022 End: 07-24-2022 ambulatory [facility] Start: 07-24-2022 End: 07-24-2022 Encounter for other preprocedural examination [facility] Start: 03-20-[address] SAM HANCOCK [facility] ity:H1 Start: 01-16-2022 End: 01-17-[address] SAM HANCOCK Facility:H1 Start: 01-16-2022 End: 01-17-[address] SAM HANCOCK Facility:[facility]1 Start: 10-17-2021 End: 10-18-2021 ambulatory FILIPPO CHOWDARY Facility:[facility]1 Start: 07-25-2021 End: 07-26-2021 ambulatory FILIPPO CHOWDARY Facility:[facility]1 Start: 05-04-2021 Encounter for genera l adult medical examination without abnormal findings DR TAY MEYER [facility] Start: 04-25-2021 End: 04-26-2021 Encounter for general adult medical examination without abnormal findings DR TAY MEYER Facility:[facility]1 Start: 04-25-2021 End: 04-26-[address] TAY MEYER Facility:[facility]1 Start: 03-26-2021 Encounter for other preprocedural examination DR TAY MEYER [facility] Start: 03-26-2021 End: 03-26-[address] TAY MEYER Facility:[facility]1 Start: 03-21-[address] TAY MEYER Facili ty:H1 Start: 03-19-2021 End: 03-19-[address] TAY MEYER Facility:H1 Start: 03-16-2021 End: 03-17-[address] TAY MEYER Facility:[facility]1 Start: 03-16-2021 End: 03-17-2021 Encounter for other preprocedural examination DR TAY MEYER Facility:H1 Start: 03-01-2021 End: 03-01-[address] GEORGIA ROME Facility:H1 Start: 02-04-2021 End: 02-05-[address] TAY MEYER Facility:H1 Procedures Date Procedure Procedure Detail Performing Clinician Start: 06-30-2024 Complete blood count with white cell differential, automated Sam Hancock MD Work Phone: Start: 01-21-2024 Follow-up visit Follow-up JALEN PIERCE Start: 10-15-2023 Radex hip unilateral with pelvis 2-3 views Ever Keen DO Work Phone: Start: 10-15-2023 End: 10-15-2023 Arthrp acetblr/prox fem prostc agrft/algrft Ever Keen DO Work Phone: Start: 10-15-2023 REPEATED ABORH Ever Keen DO Work Phone: Start: 02-13-2023 Colonoscopy Sam downs MD Work Phone: Plan of Treatment Date Care Activity Detail Author Start: 02-13-2033 Screening for malign ant neoplasm of colon [facility] Start: 09-18-2024 Tobacco Screening Tobacco Screening [facility] Start: 09-15-2024 Adult BMI Screening Adult BMI Screen ing [facility] Start: 07-28-2024 End: 07-28-2024 Patient encounter procedure 07/28/2024 11:15 AM EST Office Visit [facility] [address] [place] [address] Sam Hancock MD [address] [place] [address] [facility] Start: 07-27-2024 End: 07-27-2024 Patient encounter procedure 07/27/2024 4:00 PM EST Office Visit [facility] [address] [place] [id number] Azeem Davidson DO [address] [place] [address] [facility] Start: 06-21-2024 End: 06-21-2025 Basic metabolic 1998 panel - Serum or Plasma Basic metabolic panel Lab Routine Essential hypertension, benign (CMS/HCC) Expected: 06/21/2024 (Approximate), Expires: 06/21/2025 [facility] Comment on above: Expected: 06/21/2024 (Approximate), Expires: 06/21/2025 Start: 06-21-2024 End: 06-21-2025 CBC W Auto Differential panel - Blood CBC and differential Lab Routine Encounter for long-term (current) use of medications Expected: 06/21/2024 (Approximate), Expires: 06/21/2025 [facility] Comment on above: Expected: 06/21/2024 (Approximate), Expires: 06/21/2025 Start: 06-21-2024 End: 06-21-2025 Hemoglobin A1c/Hemoglobin.total in Blood Hemoglobin A1c Lab Routine Prediabetes Expected: 06/21/2024 (Approximate), Expires: 06/21/2025 [facility] Work Phone: Comment on above: Expected: 06/21/2024 (Approximate), Expires: 06/21/2025 Start: 06-21-2024 End: 06-21-2025 Hepatic function 2000 panel - Serum or Plasma Hepatic function panel Lab Routine Encounter for long-term (current) use of medications Expected: 06/21/2024 (Approximate), Expires: 06/21/2025 [facility] Comment on above: Expected: 06/21/2024 (Approximate), Expires: 06/21/2025 Start: 06-21-2024 End: 06-21-2025 Lipid 1996 panel - Serum or Plasma Lipid panel Lab Routine Class 3 severe obesity due to excess calories with serious comorbidity and body mass index (BMI) of 45.0 to 49.9 in adult ([facility]/HCC) Dyslipidemia ([facility]/HCC) Expected: 06/21/2024 (Approximate), Expires: 06/21/2025 [facility] Comment on above: Expected: 06/21/2024 (Approximate), Expires: 06/21/2025 Start: 06-21-2024 End: 06-21-2025 Thyrotropin [Units/volume] in Serum or Plasma TSH Lab Routine Primary hypothyroidism ([facility]) Expected: 06/21/2024 (Approximate), Expires: 06/21/2025 [facility] Comment on above: Expected: 06/21/2024 (Approximate), Expires: 06/21/2025 Start: 06-21-2024 End: 06-21-2025 Thyroxine (T4) free [Mass/volume] in Serum or Plasma T4, free Lab Routine Primary hypothyroidism ([facility] [facility] Expected: 06/21/2024 (Approximate), Expires: 06/21/2025 [facility] Comment on above: Expected: 06/21/2024 (Approximate), Expires: 06/21/2025 Start: 04-24-2024 Influenza vaccination Influenza Vacc ine (#1) [facility] Start: 11-23-2023 End: 11-23-2023 Patient encounter procedure 11/23/2023 9:15 AM EDT Office Visit [facility] [address] [place] [address] Sam Hancock MD [address] [place] [address] [facility] Start: 10-22-2023 End: 10-22-2023 Patient encounter procedure 10/22/2023 10:45 AM EST Office Visit [facility] [address] [place] [phone] Ever Keen, DO [address] [place] [address] [facility] Start: 10-15-2023 End: 10-15-2023 Admission to same day surgery center 10/15/2023 10:15 AM EST - 10/15/2023 12:15 PM EST Surgery [facility] - Surgery [address] [place] [id number] Ever Keen, DO [address] [place] [address] REPLACEMENT TOTAL JOINT HIP [40417 (CPT )] [facility] Comment on above: REPLACEMENT TOTAL LESIA INT HIP [43344 (CPT )] Start: 10-15-2023 End: 10-15-2023 Arthrp acetblr/prox fem prostc agrft/algrft REPLACEMENT TOTAL JOINT HIP left hip degenerative joint disease 10/15/2023 10:15 AM EST [facility] Start: 10-15-2023 Subsequent hospital visit by physician 10/15/2023 10:15 AM EST Hospital Encounter [facility] - Surgery [address] [place] [id number] Ever Keen, DO [address] [place] [address] [facility] Start: 10-15-2023 End: 10-15-2023 Patient encounter procedure 10/15/2023 7:30 AM EST Procedure Visit [facility] Ever Keen, DO [address] [place] [address] [facility] Start: 10-05-2023 End: 09-15-2024 Crossmatch RBC Crossmatch RBC Blood Bank Routine Preop examination Hypertension, unspecified type Atrial fibrillation, unspecified type ([facility]) BMI 40.0-44.9, adult ([facility]) Expected: 10/05/2023, Expires: 09/15/2024 [facility] Comment on above: Expected: 10/05/2023 , Expires: 09/15/2024 Start: 10-05-2023 End: 09-15-2024 Type and screen(includes indirect eloisa) Type and screen(includes indirect eloisa) Blood Bank Routine Preop examination Hypertension, unspecified type Atrial fibrillation, unspecified type (CMS-HCC) BMI 40.0-44.9, adult ([facility]) Expected: 10/05/2023, Expires: 09/15/2024 [facility] Work Phone: Comment on above: Expected: 10/05/2023 , Expires: 09/15/2024 Start: 04-24-2023 COVID-19 Vaccine ( season) COVID-19 Vaccine ( season) [facility] Start: 04-24-2023 Influenza vaccination [facility] Start: 03-23-2022 Screening for malign ant neoplasm of colon FIT-DNA [facility] Start: 2017 Administration of varicella zoster vaccine Zoster (Shingles) Vaccine (1 of 2) [facility] Start: 2007 Screening for malign ant neoplasm of breast Mammogram [facility] Start: 1997 Screening for malign ant neoplasm of cervix [facility] Start: 1988 Screening for malign ant neoplasm of cervix Pap Smear [facility] Start: 1986 DTaP,Tdap and Td Vaccines (1 - Tdap) DTaP,Tdap and Td Vaccines ( - Tdap) [facility] Start: 1985 Adult BMI Follow Up Plan Adult BMI Follow Up Plan [facility] Start: 1979 Depression Screening Depression Scre ening [facility] Start: 1967 Screening for malign ant neoplasm of colon [facility] Immunizations Immunization Date Immunization Notes Care Provider Lindsey walden 03-20-2021 influenza virus vacc ine, unspecified formulation [facility] Payers Date Payer Category Payer Self-pay 2023 Unknown [id number] 2018 Private Health Insurance [id number] 1967 Unknown [id number] 2.16.84 0.1.148479.3.579.2.593 1967 Unknown [id number] 2.16.84 0.1.106398.3.579.2.593 1967 Unknown [id number] 2.16.84 0.1.253534.3.579.2.593 1967 Unknown [id number] 2.16.84 0.1.957971.3.579.2.593 1967 Unknown [id number] 2.16.84 0.1.302086.3.579.2.593 1967 Unknown [id number] 2.16.84 0.1.271290.3.579.2.593 1967 Unknown [id number] 2.16.84 0.1.870842.3.579.2.593 1967 Unknown [id number] 2.16.84 0.1.937144.3.579.2.593 1967 Unknown [id number] 2.16.84 0.1.227437.3.579.2.593 1967 Unknown [id number] 2.16.84 0.1.717465.3.579.2.593 1967 Unknown [id number] 2.16.84 0.1.515046.3.579.2.593 1967 Unknown [id number] 2.16.84 0.1.627850.3.579.2.593 1967 Unknown [id number] 2.16.84 0.1.693604.3.579.2.593 1967 Unknown [id number] 2.16.8 40.1.660290.3.579.2.718 1967 Unknown [id number] 2.16.8 40.1.451436.3.579.2.1286 1967 Unknown [id number] 2.16.8 40.1.054987.3.579.2.128 1967 Unknown [id number] 2.16.8 40.1.495946.3.579.2.128 1967 Unknown [id number] 2.16.8 40.1.387626.3.579.2.1285 1967 Unknown [id number] 2.16.8 40.1.538502.3.579.2.1285 1967 Unknown [id number] 2.16.8 40.1.173434.3.579.2.1285 1967 Unknown [id number] 2.16.8 40.1.739770.3.579.2.128 1967 Unknown [id number] 2.16.8 40.1.878335.3.579.2.1285 1967 Unknown [id number] 2.16.8 40.1.259003.3.579.2.128 1967 Unknown [id number] 2.16.8 40.1.523349.3.579.2.128 1967 Unknown [id number] 2.16.8 40.1.857581.3.579.2.128 1967 Unknown [id number] 2.16.8 40.1.764448.3.579.2.128 1967 Unknown [id number] 2.16.8 40.1.839075.3.579.2.128 1967 Unknown [id number] 2.16.8 40.1.726665.3.579.2.128 1967 Unknown [id number] 2.16.8 40.1.785518.3.579.2.1286 1967 Unknown [id number] 2.16.8 40.1.767657.3.579.2.1286 1967 Unknown [id number] 2.16.8 40.1.133131.3.579.2.1286 1967 Unknown [id number] 2.16.8 40.1.880099.3.579.2.1286 1967 Unknown [id number] 2.16.84 0.1.845432.3.579.2.1259 1967 Unknown [id number] 2.16.84 0.1.314733.3.579.2.1258 1967 Unknown [id number] 2.16.84 0.1.609622.3.579.2.9 1967 Unknown [id number] 2.16.84 0.1.069674.3.579.2.1258 1967 Unknown [id number] 2.16.84 0.1.188969.3.579.2.1258 1967 Unknown [id number] 2.16.84 0.1.315727.3.579.2.1258 1967 Unknown [id number] 2.16.84 0.1.204880.3.579.2.1258 1967 Unknown [id number] 2.16.84 0.1.790733.3.579.2.1258 1967 Unknown [id number] 2.16.84 0.1.413612.3.579.2.1258 1967 Unknown [id number] 2.16.84 0.1.760238.3.579.2.1258 1967 Unknown [id number] 2.16.84 0.1.203076.3.579.2.1258 1967 Unknown [id number] 2.16.84 0.1.576599.3.579.2.9 1967 Unknown [id number] 2.16.840 .1.792491.3.579.2.1259 1967 Unknown [id number] 2.16.840 .1.048006.3.579.2.1258 1967 Unknown [id number] 2.16.840 .1.595341.3.579.2.1258 1967 Unknown [id number] 2.16.840. 1.567435.3.579.2.1258 1967 Unknown [id number] 2.16.8 40.1.561442.3.579.2.1285 1967 Unknown [id number] 2.16.8 40.1.419814.3.579.2.1285 1967 Unknown [id number] 2.16.8 40.1.809327.3.579.2.1285 1967 Unknown [id number] 2.16.8 40.1.086207.3.579.2.1285 1967 Unknown [id number] 2.16.8 40.1.514448.3.579.2.1285 1967 Unknown [id number] 2.16.8 40.1.568762.3.579.2.1285 1967 Unknown [id number] 2.16.8 40.1.403571.3.579.2.1285 1967 Unknown [id number] 2.16.8 40.1.912468.3.579.2.1285 1967 Unknown [id number] 2.16.8 40.1.983534.3.579.2.1285 1967 Unknown [id number] 2.16.8 40.1.736400.3.579.2.1285 1967 Unknown [id number] 2.16.8 40.1.503791.3.579.2.1285 1967 Unknown [id number] 2.16.8 40.1.205977.3.579.2.1285 1967 Unknown [id number] 2.16.8 40.1.696506.3.579.2.1286 1959 Unknown [id number] Social History Date Type Detail Facility Start: 09-01-2023 End: 09-18-2023 Tobacco smoking status NHIS Ex-smoker [facility] Start: 08-24-1982 End: 08-24-2012 History of tobacco use Current smoker [facility] Start: 08-24-1982 End: 08-24-2012 History of tobacco use Cigarette Smoker [facility] Start: 09-18-2023 Tobacco use and exposure Smokeless tobacco non-user [facility] Start: 09-18-2023 End: 06-21-2024 Alcohol intake Current drinker of alcohol (finding) [facility] Start: 09-18-2023 End: 06-21-2024 Alcohol intake [facility] Start: 09-18-2023 End: 06-21-2024 Tobacco use panel [facility] Childcare Unknown [facility] Start: 1965 Sex Assigned At Not on file P [facility] How often to you hav e a drink containing alcohol? 4 or more times a week [facility] How many standard drinks containing alcohol do you have on a typical day? 3 or 4 [facility] How often do you hav e 6 or more drinks on 1 occasion? Never [facility] Has the weipass, [employer], or [employer] threatened to shut off services in your home in past 12Mo No [facility] Medical Equipment Procedure Code Equipment Code Equipment Origin al Text Equipment Identifier Dates G7 Acetabular Systemvivacit-E Highly Crosslinked Polyethylene Liner High Wall [id number] Start: 10-15-2023 Screw Bn 30mm 6. [address] Actb Giovani [facility] [id number] - Sna - [id number] Start: 10-15-2023 Goals Date Patient Goal Desired Activity /State Personal health goal Comment on above: Formatting of this n ote might be different from the original. Evaluation of progress towards goal: has been up with therapy Clinical Notes 02-04-2021 to 06-21-2024 Sam Hancock MD - 06/21/2024 5:05 PM Linda Hancock MD - 06/21/2024 5:05 PM Linda Hancock MD - 06/21/2024 5:05 PM Linda Hancock MD - 06/21/2024 5:04 PM EDTPatient Instructions Note Date & Type Note Facility 06-21-2024 History of Present illness Narrative Associated Problem(s): Primary osteoarthritis of left hip Needed revision of replacement and follow with ortho. Associated Problem(s): Major depressive disorder, recurrent episode, moderate degree (CMS/HCC) Symptoms much worse and resume paxil. Warned will take 2-3 weeks to notice improvement in mood. Associated Problem(s): Generalized anxiety disorder (CMS/HCC) Symptoms much worse and resume paxil. Warned will take 2-3 weeks to notice improvement in mood. Resume buspar and use hydroxyzine PRN. Associated Problem(s): Essential hypertension, benign (CMS/HCC) BP severely elevated and resume medication. Need to monitor PRN. Associated Problem(s): Class 3 severe obesity due to excess calories with serious comorbidity and body mass index (BMI) of 45.0 to 49.9 in adult (CMS/HCC) Patient overweight and difficult time losing weight. Discussed proper diet and regular aerobic exercise. Recommend Weight Watchers and need to limit calories and smaller portions. Need to increase activity and regular aerobic exercise several days a week for 30 minutes at a time. Interested in adipex and warned of potential cardiac side effects. Script written for first month and will need to recheck weight in 1 month. OARRS reviewed. Continue medications as prescribed. Associated Problem(s): Bleeding hemorrhoids Worsening bleeding and refer to surgeon. Images from the original note were not included. Subjective Patient ID: Doris Badillo is a 58 y.o. female who presents for Follow-up (Talk about med/ health). Follow up HTN, depression, anxiety, and OA hip. Patient not doing well today. Not on medication for several months. Patient had left hip replacement 10/15 and initially did okay. When up walking with walker felt severe pain and not able to stand. To ER and found periprosthetic fracture of femoral component. Transferred to [place] and had revision 11/08. Continued pain and problems walking. Not able to return to work and on disability. Mood much worse. Down, sad, and no motivation . Not want to do anything or be around others. Not want to leave house. Severe anxiety. Nervous and worry all the time. Stressed out and overwhelmed. Thought racing and hard to clear mind. [place], irritable and snapping at others. Easily upset and overreact. C/o bleeding hemorrhoid. Known hemorrhoid and colonoscopy normal in January 2023. C/o bleeding over the past several weeks and bleeding with every bowel movement. Mild pain with BM and wants to see surgeon. Weight up 29 pounds. Not active and not eating well. Drinking wine daily and goes through a box of wine about every 2 days. Review of Systems Respiratory: Negative for cough, shortness of breath and wheezing. Cardiovascular: Negative for chest pain and palpitations. Gastrointestinal: Negative for abdominal pain, diarrhea, nausea and vomiting. Genitourinary: Negative for dysuria. Objective Physical Exam Constitutional: General: She is not in acute distress. Appearance: Normal appearance. HENT: Head: Normocephalic. Right Ear: Tympanic membrane normal. Left Ear: Tympanic membrane normal. Eyes: Extraocular Movements: Extraocular movements intact. Pupils: Pupils are equal, round, and reactive to light. Cardiovascular: Rate and Rhythm: Normal rate and regular rhythm. Heart sounds: No murmur heard. No friction rub. No gallop. Pulmonary: Effort: Pulmonary effort is normal. Breath sounds: Normal breath sounds. No wheezing, rhonchi or rales. Abdominal: General: Bowel sounds are normal. There is no distension. Palpations: Abdomen is soft. Tenderness: There is no abdominal tenderness. There is no guarding or rebound. Musculoskeletal: Cervical back: Neck supple. Right lower leg: No edema. Left lower leg: No edema. Neurological: Mental Status: She is alert. Assessment/Plan Problem List Items Addressed This Visit Essential hypertension, benign (CMS/HCC) - Primary BP severely elevated and resume medication. Need to monitor PRN. Relevant Medications amLODIPine (Norvasc) 10 MG tablet hydroCHLOROthiazide (HYDRODiuril) 25 MG tablet losartan (Cozaar) 100 MG tablet Other Relevant Orders Basic metabolic panel Generalized anxiety disorder (CMS/HCC) Symptoms much worse and resume paxil. Warned will take 2-3 weeks to notice improvement in mood. Resume buspar and use hydroxyzine PRN. Relevant Medications busPIRone (Buspar) 5 MG tablet hydrOXYzine HCl (Atarax) 25 MG tablet Primary hypothyroidism (CMS/HCC) Relevant Orders TSH T4, free Prediabetes Relevant Orders Hemoglobin A1c Primary osteoarthritis of left hip Needed revision of replacement and follow with ortho. Major depressive disorder, recurrent episode, moderate degree (CMS/HCC) Symptoms much worse and resume paxil. Warned will take 2-3 weeks to notice improvement in mood. Relevant Medications PARoxetine (Paxil) 20 MG tablet Class 3 severe obesity due to excess calories with serious comorbidity and body mass index (BMI) of 45.0 to 49.9 in adult (CMS/HCC) Patient overweight and difficult time losing weight. Discussed proper diet and regular aerobic exercise. Recommend Weight Watchers and need to limit calories and smaller portions. Need to increase activity and regular aerobic exercise several days a week for 30 minutes at a time. Interested in adipex and warned of potential cardiac side effects. Script written for first month and will need to recheck weight in 1 month. OARRS reviewed. Continue medications as prescribed. Relevant Medications phentermine (Adipex-P) 37.5 MG tablet Other Relevant Orders Lipid panel Bleeding hemorrhoids Worsening bleeding and refer to surgeon. Relevant Orders Ambulatory referral to General Surgery Encounter for long-term (current) use of medications Relevant Orders CBC and differential Hepatic function panel Other Visit Diagnoses Dyslipidemia (CMS/HCC) Relevant Orders Lipid panel Morbid obesity due to excess calories ([facility]) documented in this encounter [facility] 01-23-2024 Note XR FEMUR LT 2+ VIEWS 2 VIEWS LEFT FEMUR HISTORY: Hardware evaluation COMPARISON: 11/09/2023 IMPRESSION: * Stable appearance of left hip arthroplasty with proximal cerclage wires and unchanged appearance of nondisplaced proximal femoral periprosthetic fracture. Finalized by Alexis Meade MD on 01/23/2024 7:27 AM [facility] 10-17-2023 Hospital course Narrative Summary: Status post left hip replacement Orthopaedic Discharge Summary Patient ID: Doris Badillo [id number] 58 y.o. 1965 Admit date: 10/15/2023 Discharge date and time: October 17 Admitting Physician: Ever Keen DO Discharge Physician: same Admission Diagnoses: Severe degenerative joint disease left hip Discharge Diagnoses: Severe degenerative joint disease left hip Admission Condition: Stable Discharged Condition: Stable Indication for Admission: The patient was noted via outpatient basis to have recalcitrant pain and decreased range of motion to the operative hip with physical and diagnostic modalities consistent with severe degenerative joint disease. They exhibited an antalgic gait which was affecting balance, coordination, stability on stairs and causing pain to hip and low back. They tried nonsteroidal anti-inflammatories, cortisone injection, strength and fitness program at home without relief of symptoms. X-rays revealed severe degenerative joint disease to the operative hip with decrease joint space height noted , marginal osteophytes noted, and flattening of the articular surfaces noted. The patient requested to have a total hip arthroplasty performed because the pain was markedly affecting activities of daily living and ability to sleep. Surgical procedure: Procedure(s): REPLACEMENT TOTAL JOINT HIP (Left) - Wound Class: Clean - Incision Closure: Deep and Superficial Layers Hospital Course:See [facility] inpatient notes for specifics Patient was admitted to the hospital and underwent a left total hip arthroplasty on the above mentioned date. The patient progressed well throughout the hospital stay. First postoperative day patient was placed in physical therapy to gait training with a walker weightbearing as tolerated to operative lower extremity and increase strength and range of motion of the operative lower extremity. The patient was placed on Permanent hip dislocation precautions to the operative hip. Patient was placed on 6 weeks no active abduction to operative hip. Patient was placed on DVT and infection prophylaxis postoperatively. At time of discharge the patient was experiencing no difficulty with spontaneous urinations and flatus. The Patient showed excellent oral intake of fluids and solids. The Patient denied chest pain shortness of breath or orthopnea, abdominal pain or dyspepsia.. The Patient's condition on discharge was stable and the incision was stable on discharge. The patient experienced no adverse drug reactions while admitted the hospital. The patient is expected to make a full and expedient recovery and to achieve a level ambulation similar to or slightly less than that prior to admission. The Patient's operative lower extremity was neurovascularly unchanged without any sensory or motor deficits noted distal to the operative hip. The Patient's activity level on discharge is to be gait training with a walker weightbearing as tolerated to operative lower extremity. The patient was placed on DVT prophylaxis. Patient was given a follow-up appointment in my office in approximately 10 days. Disposition: Stable Patient Instructions: @MEDDISCHARGE@ Activity: Gait training with walker weightbearing as tolerated to left Lower extremity, Increased strength and range of motion operative hip. Diet: Regular home diet Wound Care: May shower daily and redressed the wound after shower Follow-up with Ever Keen DO in 10-14 days. Signed: Ever Keen DO documented in this encounter [facility] 10-17-2023 Plan of care note Problem: Safety Goal: Patient will be injury free during hospitalization Description: INTERVENTIONS: 1. Assess patient's risk for falls and implement fall prevention plan of care per policy 2. Provide and maintain a safe environment 3. Proper use of double Identifiers 4. Medication administration using the 5 rights 5. Hand hygiene 6. Specimens are labeled at the bedside 7. Instruct patient/ patient business office representative about use of safety devices 8. Include patient/ patient business office representative in decisions related to safety Outcome: Progressing Note: Evaluation of progress towards goal: Safety measures initiated/maintained. Pt remains safe from harm/injury/falls Problem: Knowledge Deficit Goal: Patient/patient business office representative demonstrates understanding of disease process, treatment plan, medications, and discharge instructions Description: INTERVENTIONS 1. Complete learning assessment and assess knowledge base 2. Provide teaching at level of understanding 3. Provide teaching via preferred learning method(s) Outcome: Progressing Note: Evaluation of progress towards goal: POC discussed with patient. Questions answered PRN. [employer] 10-17-2023 Miscellaneous Notes Problem: Safety Goal: Patient will be injury free during hospitalization Description: INTERVENTIONS: 1. Assess patient's risk for falls and implement fall prevention plan of care per policy 2. Provide and maintain a safe environment 3. Proper use of double Identifiers 4. Medication administration using the 5 rights 5. Hand hygiene 6. Specimens are labeled at the bedside 7. Instruct patient/ patient business office representative about use of safety devices 8. Include patient/ patient business office representative in decisions related to safety Outcome: Progressing Note: Evaluation of progress towards goal: Safety measures initiated/maintained. Pt remains safe from harm/injury/falls Problem: Knowledge Deficit Goal: Patient/patient business office representative demonstrates understanding of disease process, treatment plan, medications, and discharge instructions Description: INTERVENTIONS 1. Complete learning assessment and assess knowledge base 2. Provide teaching at level of understanding 3. Provide teaching via preferred learning method(s) Outcome: Progressing Note: Evaluation of progress towards goal: POC discussed with patient. Questions answered PRN. Physical Therapy Treatment Discharge Recommendations PT Recommendations: Home Home Recommendations: Intermittent caregiver support for: (safety and assistance with ADLs) Post Discharge Therapy Recommendations: Home Physical Therapy 6 Clicks: Basic Mobility Turning from your back to your side while in a flat bed without using bed rails?: A little Moving from lying on your back to sitting on side of flat bed without using bed rails?: A little Moving to and from bed to a chair (including w/c)?: A little Standing up from a chair using your arms (e.g. w/c or bedside chair)?: None To walk in hospital room?: A little Climbing 3-5 steps with a railing?: A lot Scoring 6 Clicks: Basic Mobility Raw Score: 18 CMS G Code Modifier: CK Therapy Plan Need for skilled Physical Therapy to address deficits in functional mobility due to a status decline resulting from L ALIN. PT Treatment/Interventions: Functional transfer training, LE strengthening/ROM, Endurance training, Balance, Stair training, Bed mobility, Gait training, Functional activities, Neuromuscular reeducation PT Frequency: Other (comment) (1-2 times per day) PT Duration: 10 days Patient Response to Treatment: Progressing toward goals Assessment Patient Assessment Therapy Problem List: Decreased ADL status, Decreased balance, Decreased endurance, Decreased gross motor, Decreased high-level ADLs, Decreased mobility, Decreased safe judgement during ADL, Decreased self-care trans Patient Response to Treatment: Progressing toward goals Mood/Affect: Appropriate for circumstances Rehab Prognosis: Good, With continued PT status post acute discharge Visit RN Communication: Yes Medical Record Reviewed: Yes PT Type of Visit: Treatment Precautions Activity: ok to treat per RN Nan Equipment: rolling walker, nonskid socks, gait belt Weight Bearing Status: WBAT L LE Pain Assessment Pain Assessment: 0-10 Pain Score: 2 Pain Type: Acute pain Pain Location: Hip Pain Orientation: Left Pain Intervention(s): Repositioned, Rest Cognition Orientation Level: Oriented X4 Bed Mobility Other: patient sitting edge of bed upon arrival Transfers Sit to Stand: Standby assist Stand to Sit: Standby assist Gait Base of Support: Wide Pattern: Decreased ana, Antalgic gait Gait Assistance: Standby assist Assistive Device: Rolling walker Gait Distance: 25 feet Limiting Factors to Gait: Pain (IV in R wrist bothering patient with weight bearing through R hand when using walker) 2 Turns: Yes Balance Sitting Balance: Static: Good Sitting Balance: Dynamic: Good Standing Balance: Static: Fair Standing Balance: Dynamic: Fair 10/17/23 0800 ALIN ALIN exercises performed? Yes Ankle pumps 10x Gluteal Sets 10x Long arc quads 10x Other Exercises completed to improve strength and mobility Activity Tolerance Endurance: Tolerates <30 minutes activity WITHOUT vital sign changes Plan Physical Therapy Care Plan Physical Therapy Care Plan (Active) Template: PT - Physical Therapy Problem: Activity Tolerance Dates: Start: 10/15/23 Disciplines: PT Goal: Tolerate 30 minutes of activity WITH rest breaks Dates: Start: 10/15/23 Expected End: 10/24/23 Description: Goal Description: Disciplines: PT Problem: Bed Mobility Dates: Start: 10/15/23 Disciplines: PT Goal: Patient will perform bed mobility with Stand By Assist Dates: Start: 10/15/23 Expected End: 10/24/23 Description: Goal Description: Pt to perform bed mobility in order to be able to decrease risk of further skin breakdown. Disciplines: PT Outcomes Date/Time User Outcome 10/16/23 1320 Sabina Helms, PT Progressing 10/16/23 1126 Sabina Helms, PT Not Progressing Goal note from Hospital Encounter 09/14/2023 by Sabina Helms, PT Evaluation of progress towards goal: min A Problem: Gait Dates: Start: 10/15/23 Disciplines: PT Goal: Patient will perform gait with Stand By Assist Dates: Start: 10/15/23 Expected End: 10/24/23 Description: Pt to be able to ambulate 100ft with rolling walker to be able to safely manage household distances at discharge. Disciplines: PT Outcomes Date/Time User Outcome 10/17/23 0829 Ravinder Sandra, STEM SIZER Progressing 10/16/23 1320 Sabina Helms, PT Progressing 10/16/23 1126 Sabina Helms, PT Not Progressing Goal note from Hospital Encounter 09/14/2023 by Ravinder Sandra STEM SIZER Evaluation of progress towards goal: Pt amb 25 feet with rolling walker SBA. Problem: Standing Balance Dates: Start: 10/15/23 Disciplines: PT Goal: Improve balance to good Dates: Start: 10/15/23 Expected End: 10/24/23 Description: Static Dynamic Pt to have balance of good in order to decrease risk of falls at discharge. Disciplines: PT Outcomes Date/Time User Outcome 10/16/23 1320 Sabina Helms, PT Progressing 10/16/23 1126 Sabina Helms PT Not Progressing Goal note from Hospital Encounter 09/14/2023 by Sabina Helms PT Evaluation of progress towards goal: fair Problem: Strength Dates: Start: 10/15/23 Disciplines: PT Goal: Improve strength Dates: Start: 10/15/23 Expected End: 10/24/23 Description: Of extremity/ location: left LE to at least 4-/5 To facilitate: improved transfers Disciplines: PT Outcomes Date/Time User Outcome 10/16/23 1126 Sabina Helms PT Not Progressing Goal note from Hospital Encounter 09/14/2023 by Sabina Helms, PT Evaluation of progress towards goal: no change Problem: Transfers Dates: Start: 10/15/23 Disciplines: PT Goal: Patient will perform transfers with Stand By Assist Dates: Start: 10/15/23 Expected End: 10/24/23 Description: Goal Description: Pt to be able to safely transfer with least amount of assistance to demonstrate decreased need for caregiver assistance and ease with home transfers. Disciplines: PT Outcomes Date/Time User Outcome 10/17/23 0829 Ravinder Sandra PTA Progressing 10/16/23 1320 Sabina Helms, PT Progressing 10/16/23 1126 Sabina Helms PT Progressing Goal note from Hospital Encounter 09/14/2023 by Ravinder Sandra PTA Evaluation of progress towards goal: SBA with sit to stand and stand to sit. Physical Therapy Care Plan (Resolved) There are no resolved problems. Principal Problem: Primary localized osteoarthritis of left hip Associated attestation - Betzy Ramírez, PT - 10/17/2023 8:41 AM EST I have reviewed and agree with this note and education documentation for this visit. Problem: Safety Goal: Patient will be injury free during hospitalization Description: INTERVENTIONS: 1. Assess patient's risk for falls and implement fall prevention plan of care per policy 2. Provide and maintain a safe environment 3. Proper use of double Identifiers 4. Medication administration using the 5 rights 5. Hand hygiene 6. Specimens are labeled at the bedside 7. Instruct patient/ patient business office representative about use of safety devices 8. Include patient/ patient business office representative in decisions related to safety Outcome: Progressing Note: Evaluation of progress towards goal: Safety maintained, pt alert to own abilities Problem: Infection Goal: Absence of infection during hospitalization Description: Interventions: 1. Assess and monitor for signs and symptoms of infection 2. Monitor lab/diagnostic results 3. Monitor all insertion sites i.e., indwelling lines, tubes and drains 4. Monitor endotracheal (as able) and nasal secretions for changes in amount and color 5. Administer medications as ordered 6. Instruct and encourage patient and family to use good hand hygiene technique 7. Identify and instruct patient/patient business office representative in use of appropriate isolation precautions for identified infection/symptoms 8. Provide and discuss with patient/patient business office representative on educational MDRO sheet 9. Encourage and monitor nutritional status daily and consult net developer with wcf if indicated 10. Implement neutropenic guidelines as needed 11. Review exposure to history of communicable disease and recent travel history on admission 12. Encourage annual influenza vaccine 13. Encourage pneumonia vaccine Outcome: Progressing Note: Evaluation of progress towards goal: No s/sx of infection Problem: Knowledge Deficit Goal: Patient/patient business office representative demonstrates understanding of disease process, treatment plan, medications, and discharge instructions Description: INTERVENTIONS 1. Complete learning assessment and assess knowledge base 2. Provide teaching at level of understanding 3. Provide teaching via preferred learning method(s) Outcome: Progressing Note: Evaluation of progress towards goal: Education provided on meds and tx plan Physical Therapy Treatment Discharge Recommendations PT Recommendations: Home Post Discharge Therapy Recommendations: Home Physical Therapy 6 Clicks: Basic Mobility Turning from your back to your side while in a flat bed without using bed rails?: A little Moving from lying on your back to sitting on side of flat bed without using bed rails?: A little Moving to and from bed to a chair (including w/c)?: A little Standing up from a chair using your arms (e.g. w/c or bedside chair)?: None To walk in hospital room?: A little Climbing 3-5 steps with a railing?: A lot Scoring 6 Clicks: Basic Mobility Raw Score: 18 CMS G Code Modifier: CK Therapy Plan Need for skilled Physical Therapy to address deficits in functional mobility due to a status decline resulting from S/P L ALIN. 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 Other: S/P L ALIN Pain Assessment Pain Assessment: 0-10 Pain Score: 9 Pain Type: Acute pain Pain Location: Hip Pain Orientation: Left Cognition Orientation Level: Oriented X4 Bed Mobility Sit to Supine: Min assist Transfers Sit to Stand: Standby assist Stand to Sit: Standby assist Toilet Transfers: Contact guard assist Gait Base of Support: Wide Pattern: Decreased ana, Antalgic gait Gait Assistance: Contact guard assist Assistive Device: Rolling walker Gait Distance: 15ft, 25ft Limiting Factors to Gait: Pain 2 Turns: Yes Balance Sitting Balance: Static: Good Sitting Balance: Dynamic: Good Standing Balance: Static: Fair Standing Balance: Dynamic: Fair Activity Tolerance Endurance: Tolerates <30 minutes activity WITHOUT vital sign changes Plan Physical Therapy Care Plan Physical Therapy Care Plan (Active) Template: PT - Physical Therapy Problem: Activity Tolerance Dates: Start: 10/15/23 Disciplines: PT Goal: Tolerate 30 minutes of activity WITH rest breaks Dates: Start: 10/15/23 Expected End: 10/24/23 Description: Goal Description: Disciplines: PT Problem: Bed Mobility Dates: Start: 10/15/23 Disciplines: PT Goal: Patient will perform bed mobility with Stand By Assist Dates: Start: 10/15/23 Expected End: 10/24/23 Description: Goal Description: Pt to perform bed mobility in order to be able to decrease risk of further skin breakdown. Disciplines: PT Outcomes Date/Time User Outcome 10/16/23 1320 Sabina Helms, PT Progressing 10/16/23 1126 Sabina Helms PT Not Progressing Goal note from Hospital Encounter 09/14/2023 by Sabina Helms, PT Evaluation of progress towards goal: min A Problem: Gait Dates: Start: 10/15/23 Disciplines: PT Goal: Patient will perform gait with Stand By Assist Dates: Start: 10/15/23 Expected End: 10/24/23 Description: Pt to be able to ambulate 100ft with rolling walker to be able to safely manage household distances at discharge. Disciplines: PT Outcomes Date/Time User Outcome 10/16/23 1320 Sabina Helms, PT Progressing 10/16/23 1126 Sabina Helms PT Not Progressing Goal note from Hospital Encounter 09/14/2023 by Sabina Helms, PT Evaluation of progress towards goal: 25ft with walker Problem: Standing Balance Dates: Start: 10/15/23 Disciplines: PT Goal: Improve balance to good Dates: Start: 10/15/23 Expected End: 10/24/23 Description: Static Dynamic Pt to have balance of good in order to decrease risk of falls at discharge. Disciplines: PT Outcomes Date/Time User Outcome 10/16/23 1320 Sabina Helms, PT Progressing 10/16/23 1126 Sabina Helms PT Not Progressing Goal note from Hospital Encounter 09/14/2023 by Sabina Helms, PT Evaluation of progress towards goal: fair Problem: Strength Dates: Start: 10/15/23 Disciplines: PT Goal: Improve strength Dates: Start: 10/15/23 Expected End: 10/24/23 Description: Of extremity/ location: left LE to at least 4-/5 To facilitate: improved transfers Disciplines: PT Outcomes Date/Time User Outcome 10/16/23 1126 Sabina Helms PT Not Progressing Goal note from Hospital Encounter 09/14/2023 by Sabina Helms PT Evaluation of progress towards goal: no change Problem: Transfers Dates: Start: 10/15/23 Disciplines: PT Goal: Patient will perform transfers with Stand By Assist Dates: Start: 10/15/23 Expected End: 10/24/23 Description: Goal Description: Pt to be able to safely transfer with least amount of assistance to demonstrate decreased need for caregiver assistance and ease with home transfers. Disciplines: PT Outcomes Date/Time User Outcome 10/16/23 1320 Sabina Helms, PT Progressing 10/16/23 1126 Sabina Helms PT Progressing Goal note from Hospital Encounter 09/14/2023 by Sabina Helms PT Evaluation of progress towards goal: sit to stand with SBA Physical Therapy Care Plan (Resolved) There are no resolved problems. Principal Problem: Primary localized osteoarthritis of left hip Physical Therapy Treatment Discharge Recommendations PT Recommendations: Home Post Discharge Therapy Recommendations: Home Physical Therapy 6 Clicks: Basic Mobility Turning from your back to your side while in a flat bed without using bed rails?: A little Moving from lying on your back to sitting on side of flat bed without using bed rails?: A little Moving to and from bed to a chair (including w/c)?: A little Standing up from a chair using your arms (e.g. w/c or bedside chair)?: A little To walk in hospital room?: A little Climbing 3-5 steps with a railing?: A lot Scoring 6 Clicks: Basic Mobility Raw Score: 17 CMS G Code Modifier: CK Therapy Plan Need for skilled Physical Therapy to address deficits in functional mobility due to a status decline resulting from S/P L ALIN. Patient Response to Treatment: Progressing toward goals Assessment Patient Assessment Patient Response to Treatment: Progressing toward goals Visit RN Communication: Yes Medical Record Reviewed: Yes PT Type of Visit: Treatment Precautions Activity: early mobility ok pass, Ok to treat per Freida DELEON Equipment: rolling walker, nonskid socks, IV, gait belt Weight Bearing Status: WBAT L LE Telemetry/Radio Mechanic Helper: Yes Other: S/P L ALIN Pain Assessment Pain Assessment: 0-10 Pain Score: 9 Pain Type: Acute pain Pain Location: Hip Pain Orientation: Left Cognition Orientation Level: Oriented X4 Bed Mobility Sit to Supine: Mod assist (with lifting L LE into the bed only, patient able to scoot self up in bed without assistance) Transfers Sit to Stand: Contact guard assist, Verbal cues Stand to Sit: Contact guard assist, Verbal cues Gait Base of Support: Wide Pattern: Decreased ana, Antalgic gait Gait Assistance: Contact guard assist Assistive Device: Rolling walker Gait Distance: 15ft Limiting Factors to Gait: Pain 2 Turns: Yes Balance Sitting Balance: Static: Good Sitting Balance: Dynamic: Good Standing Balance: Static: Fair Standing Balance: Dynamic: Fair Activity Tolerance Endurance: Tolerates <30 minutes activity WITHOUT vital sign changes Plan Physical Therapy Care Plan Physical Therapy Care Plan (Active) Template: PT - Physical Therapy Problem: Activity Tolerance Dates: Start: 10/15/23 Disciplines: PT Goal: Tolerate 30 minutes of activity WITH rest breaks Dates: Start: 10/15/23 Expected End: 10/24/23 Description: Goal Description: Disciplines: PT Problem: Bed Mobility Dates: Start: 10/15/23 Disciplines: PT Goal: Patient will perform bed mobility with Stand By Assist Dates: Start: 10/15/23 Expected End: 10/24/23 Description: Goal Description: Pt to perform bed mobility in order to be able to decrease risk of further skin breakdown. Disciplines: PT Outcomes Date/Time User Outcome 10/16/23 1126 Sabina Helms PT Not Progressing Goal note from Hospital Encounter 09/14/2023 by Sabina Helms PT Evaluation of progress towards goal: min A Problem: Gait Dates: Start: 10/15/23 Disciplines: PT Goal: Patient will perform gait with Stand By Assist Dates: Start: 10/15/23 Expected End: 10/24/23 Description: Pt to be able to ambulate 100ft with rolling walker to be able to safely manage household distances at discharge. Disciplines: PT Outcomes Date/Time User Outcome 10/16/23 1126 Sabina Helms PT Not Progressing Goal note from Hospital Encounter 09/14/2023 by Sabina Helms PT Evaluation of progress towards goal: 15ft with walker Problem: Standing Balance Dates: Start: 10/15/23 Disciplines: PT Goal: Improve balance to good Dates: Start: 10/15/23 Expected End: 10/24/23 Description: Static Dynamic Pt to have balance of good in order to decrease risk of falls at discharge. Disciplines: PT Outcomes Date/Time User Outcome 10/16/23 1126 Sabina Helms PT Not Progressing Goal note from Hospital Encounter 09/14/2023 by Sabina Helms PT Evaluation of progress towards goal: fair Problem: Strength Dates: Start: 10/15/23 Disciplines: PT Goal: Improve strength Dates: Start: 10/15/23 Expected End: 10/24/23 Description: Of extremity/ location: left LE to at least 4-/5 To facilitate: improved transfers Disciplines: PT Outcomes Date/Time User Outcome 10/16/23 1126 Sabina Helms PT Not Progressing Goal note from Hospital Encounter 09/14/2023 by Sabina Helms PT Evaluation of progress towards goal: no change Problem: Transfers Dates: Start: 10/15/23 Disciplines: PT Goal: Patient will perform transfers with Stand By Assist Dates: Start: 10/15/23 Expected End: 10/24/23 Description: Goal Description: Pt to be able to safely transfer with least amount of assistance to demonstrate decreased need for caregiver assistance and ease with home transfers. Disciplines: PT Outcomes Date/Time User Outcome 10/16/23 1126 Sabina Helms PT Progressing Goal note from Hospital Encounter 09/14/2023 by Sabina Helms PT Evaluation of progress towards goal: CGA Physical Therapy Care Plan (Resolved) There are no resolved problems. Principal Problem: Primary localized osteoarthritis of left hip Occupational Therapy Evaluation Discharge Recommendations OT Recommendations : Home Home Recommendations: Intermittent caregiver support for: (ADls, IADls, mobility, transportation, safety) Post Discharge Therapy Recommendations: Home Occupational Therapy 6 Clicks: Daily Activity Putting on and taking off regular lower body clothing?: A lot Bathing (including washing, rinsing, drying)?: A little Toileting, which includes using toilet, bedpan or urinal?: A lot Putting on and taking off regular upper body clothing?: A little Taking care of personal grooming such as brushing teeth?: None Eating meals?: None Scoring Daily Activity Raw Score: 18 CMS G Code Modifier: CK Therapy Plan/HPI/occupational profile throughout eval Need for skilled Occupational Therapy to address deficits in ADL independence and functional mobility due to a status decline resulting from status post L hip replacement. A moderate complex eval was completed. Past Surgical History: Procedure Laterality Date ANKLE ARTHROPLASTY Left ARTHROSCOPY KNEE x 2 BACK SURGERY 2021 nerve cautery DILATION AND CURETTAGE OF UTERUS 07/2023 alexsandra JOINT REPLACEMENT Right hip- done in [place] LAPAROTOMY SALPINGO OOPHORECTOMY Left Past Medical History: Diagnosis Date Arthritis Atrial fibrillation ([facility]) Hypertension Hypothyroidism OA (osteoarthritis) Obesity Visual impairment OT Treatment/Interventions: ADL retraining, Functional transfer training, UE strengthening/ROM, Endurance training, Cognitive reorientation, Patient/family training, Balance, Equipment eval/education, Home management, Compensatory technique education, Functional activities OT Frequency: 4-5days/week OT Duration: 10 days Assessment Patient Assessment Therapy Problem List: Decreased ADL status, Decreased balance, Decreased endurance, Decreased gross motor, Decreased high-level ADLs, Decreased mobility, Decreased safe judgement during ADL, Decreased self-care trans Patient Response to Treatment: Tolerated evaluation without adverse reaction Mood/Affect: Appropriate for circumstances Rehab Prognosis: Good, With continued OT status post acute discharge Visit RN Communication: Yes Medical Record Reviewed: Yes OT Type of Visit: Evaluation Precautions Activity: early mobility pass, Ok to treat per Katie DELEON Equipment: rolling walker, nonskid socks, IV, gait belt Weight Bearing Status: WBAT L LE Telemetry/Radio Mechanic Helper: Yes Oxygen Used: room air Other: fall risk, hip precautions Pain Assessment Pain Assessment: 0-10 Pain Score: 1 Home Living Type of Home: Apartment Home Layout: One level (laundry across the court yard) Stairs to Enter: 0 Bathroom Shower/Tub: Tub/shower unit Bathroom Toilet: Raised Bathroom Equipment: Grab bars in shower Bathroom Accessibility: Accessible via walker Home Equipment: Rolling walker Prior Function Lives With: Daughter (14 year old daugther, 20 daugther lives in town but not with patient) Receives Help From: Family Level of Mobility: Independent with ADLs and functional transfers or gait Homemaking Assistance: Independent 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) Other: off work until November ADL / IADL Hand Dominance: Right Eating Assistance: Setup Grooming Assistance: Standby assist (seated) Bathing/Showering Assistance: Mod assist Bathing/Showering Deficit: Buttocks, Left lower leg including foot, Right lower leg including foot Toilet/Commode Assistance: Max assist Toilet/Commode Deficit: Perineal hygiene, Clothing management down, Clothing management up UE Dressing Assistance: Standby assist LE Dressing Assistance: Max assist LE Dressing Deficit: Thread LLE into underwear, Thread RLE into underwear, Pull up over right hip, Pull up over left hip Footwear Assistance: Total assist Other: patient ed on role and goals of OT, agreeble to OT eval. patient ed on hip precautons and use of hip kit which pt has in room, breakfast tray arrives during ADL tasks and ADLs therefore terminated. further ADL assessment is based on clinical judgement and obseration of pt's ability to complete ROM, strength, endurance, siit and stand balance, functional mobility status and safety awareness Home Management - IADL Other: patient ed on role and goals of OT, agreeble to OT eval. patient ed on hip precautons and use of hip kit which pt has in room, breakfast tray arrives during ADL tasks and ADLs therefore terminated. further ADL assessment is based on clinical judgement and obseration of pt's ability to complete ROM, strength, endurance, siit and stand balance, functional mobility status and safety awareness Hearing / Speech / Vision Hearing: Within Functional Limits Speech: Within Functional Limits Current Vision: Wears glasses only for reading Bed Mobility Supine to Sit: Min assist (head of bed elevated, use of bed rail , verbal cues needed to slow down for safety) Sit to Supine: (remains in chair at end of session , needs with inreach, ed to use call light) Other: after sitting in chair pt reports feeling light headed and hot, refuses to have LE s eleated pt is instructed to drink more, RN made aware. resolved prior OT depature Transfers Sit to Stand: Contact guard assist, Verbal cues Stand to Sit: Contact guard assist, Verbal cues Bed to Chair: Min assist, Verbal cues Other: cues to slow down to adhere to precautions Balance Sitting Balance: Static: Good Sitting Balance: Dynamic: Good, Fair Standing Balance: Static: Fair Standing Balance: Dynamic: Fair Other: completes stand pivot from edge of bed to chair to eat breakf, cues for safety needed CGA/ min assist provided due to pt feeling light headed after taking pain medication RUE Assessment: Within Functional Limits LUE Assessment: Within Functional Limits Activity Tolerance Endurance: Tolerates 30 minutes activity with rest breaks Other: poor standing tolerance after recieving pain medication Plan Occupational Therapy Care Plan Occupational Therapy Care Plan (Active) Template: OT - Occupational Therapy Problem: Activity Tolerance Dates: Start: 10/16/23 Disciplines: OT Goal: Tolerate > 30 minutes of activity WITH rest breaks Dates: Start: 10/16/23 Expected End: 10/25/23 Description: Goal Description:patient to engage in activities of choice with out changes in vitals in order to promote return to prior level of function Disciplines: OT Problem: Other (Customize) Dates: Start: 10/16/23 Disciplines: OT Goal: Improve Dates: Start: 10/16/23 Expected End: 10/25/23 Description: Goal Description:Patient to increase IND in ADls to supervision with use of AE in order to adhere to precautions incuding toilet tasks and transfers in order to promote return to prior level of function Disciplines: OT Problem: Standing Balance Dates: Start: 10/16/23 Disciplines: OT Goal: Improve balance to good Dates: Start: 10/16/23 Expected End: 10/25/23 Description: Patient to increase standing balance to good in order to increase IND in ADLS and lower body dressing tasks Disciplines: OT Occupational Therapy Care Plan (Resolved) There are no resolved problems. 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 Complete learning assessment and assess knowledge base 2. Provide teaching at level of understanding 3. Provide teaching via preferred learning method(s) Outcome: Progressing Note: Evaluation of progress towards goal: pt educated on treatment plan, will continue to update pt prn. All questions answered at this time. DISCHARGE PLANNING NOTE Follow-up Discharge Planning Progress Note Per RN during discharge transition rounds, barriers to discharge are: None Discharge Plan: DC to home with [facility]. Care Navigation will continue to follow for any discharge needs Problem: Pain Goal: Patient goal is pain score less than 4, able to rest, and participant in treatment plan as appropriate Description: INTERVENTIONS: 1. Encourage patient or legal business office representative to report early pain and ask for pain medicine when needed 2. Assess pain using appropriate pain scale and include the scale used when documenting 3. Administer analgesics based on type and severity of pain and evaluate response within appropriate time frame 4. Implement non-pharmacological measures as appropriate and evaluate response 5. Consider cultural and social influences on pain and pain management 6. Notify LIP if interventions ineffective or patient reports new pain 7. Monitor vital signs including pulse ox, end-tidal CO2 based on pain intervention 8. Reassess pain per policy 9. Teach patient or legal business office representative interventions for comforting Outcome: Progressing Note: Evaluation of progress towards goal: Pt rates pain 8, prn medication available. Problem: Safety Goal: Patient will be injury free during hospitalization Description: INTERVENTIONS: 1. Assess patient's risk for falls and implement fall prevention plan of care per policy 2. Provide and maintain a safe environment 3. Proper use of double Identifiers 4. Medication administration using the 5 rights 5. Hand hygiene 6. Specimens are labeled at the bedside 7. Instruct patient/ patient business office representative about use of safety devices 8. Include patient/ patient business office representative in decisions related to safety Outcome: Progressing Note: Evaluation of progress towards goal: Pt. Remains free from falls and injuries. Call light in reach, bed in lowest position. Problem: Infection Goal: Absence of infection during hospitalization Description: Interventions: 1. Assess and monitor for signs and symptoms of infection 2. Monitor lab/diagnostic results 3. Monitor all insertion sites i.e., indwelling lines, tubes and drains 4. Monitor endotracheal (as able) and nasal secretions for changes in amount and color 5. Administer medications as ordered 6. Instruct and encourage patient and family to use good hand hygiene technique 7. Identify and instruct patient/patient business office representative in use of appropriate isolation precautions for identified infection/symptoms 8. Provide and discuss with patient/patient business office representative on educational MDRO sheet 9. Encourage and monitor nutritional status daily and consult net developer with wcf if indicated 10. Implement neutropenic guidelines as needed 11. Review exposure to history of communicable disease and recent travel history on admission 12. Encourage annual influenza vaccine 13. 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 Complete learning assessment and assess knowledge base 2. Provide teaching at level of understanding 3. Provide teaching via preferred learning method(s) Outcome: Progressing Note: Evaluation of progress towards goal: Patient updated on POC along with medication. Patient voiced understanding. Problem: Discharge Planning Goal: Discharge to post-acute care, other facility, or home with appropriate resources Description: Patient's goal is: INTERVENTIONS 1. Conduct assessment to determine patient/family and health care team treatment goals, and need for post-acute services based on payer coverage, community resources, and patient preferences, and barriers to discharge 2. Coordinate with Social work, Care Navigation, and Utilization Review to arrange appropriate level of services according to patient's needs based on patient preference and payer coverage in collaboration with the physician and health care team 3. Address psychosocial, clinical, and financial barriers to discharge as identified in assessment in conjunction with the patient/family and health care team 4. Consult appropriate ancillary services (i.e.. PT/OT/ST, etc) as needed 5. Communicate with and update the patient/family, physician, and health care team regarding progress on the discharge plan 6. Identify discharge learning needs (meds, wound care, etc). 7. Arrange for needed discharge transportation as appropriate Outcome: Progressing Note: Evaluation of progress towards goal: Multidisciplinary teams working together with patient to achieve discharge goals. Problem: Pain Goal: Patient goal is pain score less than 4, able to rest, and participant in treatment plan as appropriate Description: INTERVENTIONS: 1. Encourage patient or legal business office representative to report early pain and ask for pain medicine when needed 2. Assess pain using appropriate pain scale and include the scale used when documenting 3. Administer analgesics based on type and severity of pain and evaluate response within appropriate time frame 4. Implement non-pharmacological measures as appropriate and evaluate response 5. Consider cultural and social influences on pain and pain management 6. Notify LIP if interventions ineffective or patient reports new pain 7. Monitor vital signs including pulse ox, end-tidal CO2 based on pain intervention 8. Reassess pain per policy 9. Teach patient or legal business office representative interventions for comforting Outcome: Progressing Note: Evaluation of progress towards goal: Pt able to report pain according to 0/10 pain scale. Medicating patient for pain per orders. Images from the original note were not included. DISCHARGE PLANNING NOTE 10/15/23 1417 Discharge Disposition Discharge Disposition Home with Self Care County Information County of Residence [place] Patient Information Primary Caregiver Self Support System Immediate family (14 yr old dtr Yamilka & 20 year old daughter Claudine) Stressors Type of stressor (does not endorse) Income Information Income Information Employed ([employer]) Referral To Community Resources Denies needs Discharge Planning Living Arrangements Minor Child(fabrizio);Private Residence Support Systems Children Assistance Needed has walker Type of Residence Private residence Private Residence [address] [place] Accessibility Steps into home Number of Steps 1 Home Care Services No Community Agencies Currently Utilized None Patient expects to be discharged to: home Does the patient need discharge transport arranged? No Services Requested: Services Requested Discharge Disposition: Home with self care ([facility] to provide in home therapy.) Initial DC Assessment Completed: Yes DC Planning Complete Discharge Milestones: Yes Patient Goals: Patient/Caregiver Goals Patient/Caregiver Goals: Home No Needs ([facility] to provide in home therapy) Home No Needs: Caregiver/Family Goals home (pt-stated) Evaluation of progress towards goal: has been up with therapy Chart reviewed. Pleasant pt agreeable to conversation with her & mom in room, introduced self & role of SW; assessment/goals as above. Pt does not endorse substance use; pt said she has 2-3 glasses a wine per day or 2-3 beer, pt does not endorse alcohol abuse. Pt does not endorse food insecurity or financial stressors. Pt is able to afford home medications. Pt has functioning water, heat, cooling & electric in the home. Pt does not endorse anxiety, depression or other mental health concerns. Negative [place] screen. Pt provides own transportation; oldest daughter will be able to assist at [place]. 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 Pt relayed her 14 yr old Yamilka will be available to assist & oldest daughter Claudine as well. Patient's preferred [facility] is [facility] PCP verified as Sam Hancock. Preadmission plan established with [facility] to provide in home therapy at [place], pt confirms DC plan. Pt has walker. Pt does not endorse any current DC needs. Opportunity provided to ask questions, pt does not endorse any at this time. Sticky note on chart regarding DC plan. Plan to prevent readmission is for pt to follow up with orthopedist & PCPfollow DC instructions including therapy & medication compliance and to reach out to health care team as needed. Sticky note on chart regarding DC plan. Care Navigation following for safe care transition. Physical Therapy Evaluation Discharge Recommendations PT Recommendations: Home Home Recommendations: Intermittent caregiver support for: Post Discharge Therapy Recommendations: Home Physical Therapy Line O Scribe Operator Support for-: ADL Deficits, Mobility Deficits Past Medical History: Diagnosis Date Arthritis Atrial fibrillation (CMS-HCC) Hypertension Hypothyroidism OA (osteoarthritis) Obesity Visual impairment Past Surgical History: Procedure Laterality Date ANKLE ARTHROPLASTY Left ARTHROSCOPY KNEE x 2 BACK SURGERY 2021 nerve cautery DILATION AND CURETTAGE OF UTERUS 07/2023 alexsandra JOINT REPLACEMENT Right hip- done in [place] LAPAROTOMY SALPINGO OOPHORECTOMY Left 6 Clicks: Basic Mobility Turning from your back to your side while in a flat bed without using bed rails?: A little Moving from lying on your back to sitting on side of flat bed without using bed rails?: A little Moving to and from bed to a chair (including w/c)?: A little Standing up from a chair using your arms (e.g. w/c or bedside chair)?: A little To walk in hospital room?: A little Climbing 3-5 steps with a railing?: A lot Scoring 6 Clicks: Basic Mobility Raw Score: 17 CMS G Code Modifier: CK Therapy Plan Need for skilled Physical Therapy to address deficits in functional mobility due to a status decline resulting from S/P L ALIN on 10/15/[address] Keen. PT Treatment/Interventions: Functional transfer training, LE strengthening/ROM, Endurance training, Balance, Stair training, Bed mobility, Gait training, Functional activities, Neuromuscular reeducation PT Frequency: Other (comment) (1-2x/day) PT Duration: 10 days Patient Response to Treatment: Tolerated evaluation without adverse reaction Assessment Patient Assessment Therapy Problem List: Abnormal posture, Decreased balance, Decreased endurance, Decreased mobility, Decreased LE ROM, Decreased LE strength Patient Response to Treatment: Tolerated evaluation without adverse reaction Mood/Affect: Appropriate for circumstances Rehab Prognosis: Good, With continued PT status post acute discharge Visit RN Communication: Yes Medical Record Reviewed: Yes PT Type of Visit: Evaluation Precautions Activity: early mobility ok pass, Ok to evaluate per Raisa DELEON Equipment: rolling walker, nonskid socks, IV, gait belt Weight Bearing Status: WBAT L LE Telemetry/Radio Mechanic Helper: Yes Oxygen Used: room air Other: S/P L ALIN, Pain Assessment Pain Assessment: 0-10 Pain Score: 9 Pain Type: Acute pain Pain Location: Hip Pain Orientation: Left Pain Intervention(s): Repositioned, Ambulation/increased activity Response to Interventions: Pain improved Home Living Type of Home: Apartment Home Layout: One level Stairs to Enter: 0 Stairs in Home: 0 Bathroom Shower/Tub: Tub/shower unit Bathroom Toilet: Raised Bathroom Equipment: Grab bars in shower Bathroom Accessibility: Accessible via walker Home Equipment: Rolling walker Prior Function Lives With: Daughter (14yo daughter) Receives Help From: Family Level of Mobility: Independent with ADLs and functional transfers or gait Homemaking Assistance: Independent Hearing / Speech / Vision Hearing: Within Functional Limits Speech: Within Functional Limits Current Vision: Wears glasses only for reading Cognition Overall Cognitive Status: Within Functional Limits Bed Mobility Supine to Sit: Min assist Other: Cues for precautions in supine Transfers Sit to Stand: Contact guard assist, Verbal cues Stand to Sit: Contact guard assist, Verbal cues Toilet Transfers: Contact guard assist, Verbal cues (raised toilet) Other: Cues for hand placement and positioning as well as precautions in sitting Gait Base of Support: Wide Pattern: Decreased ana, Antalgic gait Gait Assistance: Contact guard assist Assistive Device: Rolling walker Gait Distance: 15ft x 2 Limiting Factors to Gait: Pain Included Uneven Surface: Yes 2 Turns: Yes Balance Sitting Balance: Static: Good Sitting Balance: Dynamic: Good Standing Balance: Static: Fair Standing Balance: Dynamic: Fair RLE Assessment: (4-/5) LLE Assessment: (3-/5) Activity Tolerance Endurance: Tolerates <30 minutes activity WITHOUT vital sign changes Plan Physical Therapy Care Plan Physical Therapy Care Plan (Active) Template: PT - Physical Therapy Problem: Activity Tolerance Dates: Start: 10/15/23 Disciplines: PT Goal: Tolerate 30 minutes of activity WITH rest breaks Dates: Start: 10/15/23 Expected End: 10/24/23 Description: Goal Description: Disciplines: PT Problem: Bed Mobility Dates: Start: 10/15/23 Disciplines: PT Goal: Patient will perform bed mobility with Stand By Assist Dates: Start: 10/15/23 Expected End: 10/24/23 Description: Goal Description: Pt to perform bed mobility in order to be able to decrease risk of further skin breakdown. Disciplines: PT Problem: Gait Dates: Start: 10/15/23 Disciplines: PT Goal: Patient will perform gait with Stand By Assist Dates: Start: 10/15/23 Expected End: 10/24/23 Description: Pt to be able to ambulate 100ft with rolling walker to be able to safely manage household distances at discharge. Disciplines: PT Problem: Standing Balance Dates: Start: 10/15/23 Disciplines: PT Goal: Improve balance to good Dates: Start: 10/15/23 Expected End: 10/24/23 Description: Static Dynamic Pt to have balance of good in order to decrease risk of falls at discharge. Disciplines: PT Problem: Strength Dates: Start: 10/15/23 Disciplines: PT Goal: Improve strength Dates: Start: 10/15/23 Expected End: 10/24/23 Description: Of extremity/ location: left LE to at least 4-/5 To facilitate: improved transfers Disciplines: PT Problem: Transfers Dates: Start: 10/15/23 Disciplines: PT Goal: Patient will perform transfers with Stand By Assist Dates: Start: 10/15/23 Expected End: 10/24/23 Description: Goal Description: Pt to be able to safely transfer with least amount of assistance to demonstrate decreased need for caregiver assistance and ease with home transfers. Disciplines: PT Physical Therapy Care Plan (Resolved) There are no resolved problems. Principal Problem: Primary localized osteoarthritis of left hip Summary: Left hip replacement Doris Badillo Date of : 1965 Date of Surgery: 10/15/2023 Preoperative diagnosis: Primary osteoarthritis left hip Postoperative diagnosis: Same Procedure: Left total hip arthroplasty Implants: [place] B 1 Fitmore stem with standard offset 44 mm cup with a 28 x 44 high wall liner 3.5/28 ceramic head Surgeon: Ever Keen DO Anesthesia: Anesthesiologist: Agustín Cox DO MILLWRIGHT HELPER: [place] Ba Monitored Anesthesia Care, Spinal OR staff: Guest Advisor Primary: Katrin Mcnair RN Guest Advisor Relief: Lorna Pedraza RN Scrub Person: Jacquelyn Mcfarlane CST; ST Wendy Hart Assistant: Lan Kim Estimated blood loss: 300 mL Complications: None Findings: Shew-py-fpcp left hip small anatomy small femoral head small AP diameter of the proximal femur Procedure summary: After administration of anesthesia she was positioned in the lateral decubitus position care was taken to pad and protect bony prominences and neurovascular facial structures the left hip was prepped and draped in usual fashion a time-out was taken. Incision was centered over the greater trochanter and dissection proceeded through a very deep layer of fat until the fascia cristino was encountered the fascia cristino was incised a deep bladed Charnley retractor was placed underneath this the bursa was incised the anterior 1/3 of gluteus medius was detached from the greater trochanter leaving a cuff of tissue for repair. The capsule was incised and the hip was dislocated raw bone was noted on the femoral head femoral neck was cut with a reciprocating saw the femoral head sized out to 41 mm My attention was turned towards the acetabulum labrum was excised the central soft tissues were excised. I medialized with a 41 mm Reamer and then reamed again it with 43 I impacted a 44 mm cup it was snug and secure. I further stabilized this with 26.5 mm acetabular screws and an apex hole eliminating screw. A 28 by 42 standard liner was clicked into place. My attention was turned back towards the femur the canal was opened with a box osteotome then a handheld Reamer to find the trajectory of the canal broaching was performed 1st with an opening broach and then with a B1 broach. The B1 was the smallest broach that matched the implantable implant. This broach could not be fully seated I backed up to the opening our starter broach and I broached several times but the patient's anterior to posterior dimensions were incredibly narrow and the broach was down [id number] with no room for play I did left the broach proud because there was solid fixation and forcing it deeper would have cracked the femur. I did trial reductions and found the soft tissues balanced nicely. I took the hip through extremes of range of motion without tendency towards dislocation. The broach and trial components were removed I then implanted a B1 standard offset Fitmore stem once again leaving it significantly proud but noting that it was rotationally stable and rock solid. A +3 5 ceramic head with a 28 mm diameter was impacted into place the hip was reduced 1 more time I took range of motion to extremes and I found that with extension and external rotation there was instability superiorly and anteriorly but stable in all other planes I elected to revise the acetabulum. Prosthesis was dislocated and the liner was removed. The cup was removed I repositioned it into a more horizontal in neutral version angle. I then put the liner back in and did trial range of motion there was no tendency towards dislocation I secured the cup and it is more horizontal in neutral version position with 6.5 mm acetabular screws I reinserted the apex hole eliminating screw I soaked the cup with diluted Betadine washed it out the implanted a new 28 x 44 liner with a high wall. Positioning the wall mostly superiorly and slightly anteriorly I clicked it into place and checked for integrity. I reduced the hip again I took it to extremes of range of motion I tried to force the dislocation and 1 did not occur the soft tissues were well balanced. I irrigated thoroughly I soaked the wound in diluted Betadine and irrigated some more I repaired the gluteus medius with a 5. Ethibond suture and then oversewed this with an 0 Vicryl I closed the fascia cristino with 0 Vicryl I closed the deep fat layer in a layered fashion with 0 Vicryl suture I closed the subcutaneous layer with Vicryl suture and then a running subcuticular stitch tincture benzoin and Steri-Strips. The patient tolerated the surgery without complication documented in this encounter [employer] 10-17-2023 Progress note Formatting of t his note is different from the original. Physical Therapy Treatment Discharge Recommendations PT Recommendations: Home Home Recommendations: Intermittent caregiver support for: (safety and assistance with ADLs) Post Discharge Therapy Recommendations: Home Physical Therapy 6 Clicks: Basic Mobility Turning from your back to your side while in a flat bed without using bed rails?: A little Moving from lying on your back to sitting on side of flat bed without using bed rails?: A little Moving to and from bed to a chair (including w/c)?: A little Standing up from a chair using your arms (e.g. w/c or bedside chair)?: None To walk in hospital room?: A little Climbing 3-5 steps with a railing?: A lot Scoring 6 Clicks: Basic Mobility Raw Score: 18 CMS G Code Modifier: CK Therapy Plan Need for skilled Physical Therapy to address deficits in functional mobility due to a status decline resulting from L ALIN. PT Treatment/Interventions: Functional transfer training, LE strengthening/ROM, Endurance training, Balance, Stair training, Bed mobility, Gait training, Functional activities, Neuromuscular reeducation PT Frequency: Other (comment) (1-2 times per day) PT Duration: 10 days Patient Response to Treatment: Progressing toward goals Assessment Patient Assessment Therapy Problem List: Decreased ADL status, Decreased balance, Decreased endurance, Decreased gross motor, Decreased high-level ADLs, Decreased mobility, Decreased safe judgement during ADL, Decreased self-care trans Patient Response to Treatment: Progressing toward goals Mood/Affect: Appropriate for circumstances Rehab Prognosis: Good, With continued PT status post acute discharge Visit RN Communication: Yes Medical Record Reviewed: Yes PT Type of Visit: Treatment Precautions Activity: ok to treat per RN Nan Equipment: rolling walker, nonskid socks, gait belt Weight Bearing Status: WBAT L LE Pain Assessment Pain Assessment: 0-10 Pain Score: 2 Pain Type: Acute pain Pain Location: Hip Pain Orientation: Left Pain Intervention(s): Repositioned, Rest Cognition Orientation Level: Oriented X4 Bed Mobility Other: patient sitting edge of bed upon arrival Transfers Sit to Stand: Standby assist Stand to Sit: Standby assist Gait Base of Support: Wide Pattern: Decreased ana, Antalgic gait Gait Assistance: Standby assist Assistive Device: Rolling walker Gait Distance: 25 feet Limiting Factors to Gait: Pain (IV in R wrist bothering patient with weight bearing through R hand when using walker) 2 Turns: Yes Balance Sitting Balance: Static: Good Sitting Balance: Dynamic: Good Standing Balance: Static: Fair Standing Balance: Dynamic: Fair 10/17/23 0800 ALIN ALIN exercises performed? Yes Ankle pumps 10x Gluteal Sets 10x Long arc quads 10x Other Exercises completed to improve strength and mobility Activity Tolerance Endurance: Tolerates <30 minutes activity WITHOUT vital sign changes Plan Physical Therapy Care Plan Physical Therapy Care Plan (Active) Template: PT - Physical Therapy Problem: Activity Tolerance Dates: Start: 10/15/23 Disciplines: PT Goal: Tolerate 30 minutes of activity WITH rest breaks Dates: Start: 10/15/23 Expected End: 10/24/23 Description: Goal Description: Disciplines: PT Problem: Bed Mobility Dates: Start: 10/15/23 Disciplines: PT Goal: Patient will perform bed mobility with Stand By Assist Dates: Start: 10/15/23 Expected End: 10/24/23 Description: Goal Description: Pt to perform bed mobility in order to be able to decrease risk of further skin breakdown. Disciplines: PT Outcomes Date/Time User Outcome 10/16/23 1320 Sabina Helms, PT Progressing 10/16/23 1126 Sabina Helms, PT Not Progressing Goal note from Hospital Encounter 09/14/2023 by Sabina Helms PT Evaluation of progress towards goal: min A Problem: Gait Dates: Start: 10/15/23 Disciplines: PT Goal: Patient will perform gait with Stand By Assist Dates: Start: 10/15/23 Expected End: 10/24/23 Description: Pt to be able to ambulate 100ft with rolling walker to be able to safely manage household distances at discharge. Disciplines: PT Outcomes Date/Time User Outcome 10/17/23 0829 Ravinder Sandra, STEM SIZER Progressing 10/16/23 1320 Sabina Helms, PT Progressing 10/16/23 1126 Sabina Helms PT Not Progressing Goal note from Hospital Encounter 09/14/2023 by Ravinder Sandra PTA Evaluation of progress towards goal: Pt amb 25 feet with rolling walker SBA. Problem: Standing Balance Dates: Start: 10/15/23 Disciplines: PT Goal: Improve balance to good Dates: Start: 10/15/23 Expected End: 10/24/23 Description: Static Dynamic Pt to have balance of good in order to decrease risk of falls at discharge. Disciplines: PT Outcomes Date/Time User Outcome 10/16/23 1320 Sabina Helms, PT Progressing 10/16/23 1126 Sabina Helms PT Not Progressing Goal note from Hospital Encounter 09/14/2023 by Sabina Helms PT Evaluation of progress towards goal: fair Problem: Strength Dates: Start: 10/15/23 Disciplines: PT Goal: Improve strength Dates: Start: 10/15/23 Expected End: 10/24/23 Description: Of extremity/ location: left LE to at least 4-/5 To facilitate: improved transfers Disciplines: PT Outcomes Date/Time User Outcome 10/16/23 1126 Sabina Helms PT Not Progressing Goal note from Hospital Encounter 09/14/2023 by Sabina Helms PT Evaluation of progress towards goal: no change Problem: Transfers Dates: Start: 10/15/23 Disciplines: PT Goal: Patient will perform transfers with Stand By Assist Dates: Start: 10/15/23 Expected End: 10/24/23 Description: Goal Description: Pt to be able to safely transfer with least amount of assistance to demonstrate decreased need for caregiver assistance and ease with home transfers. Disciplines: PT Outcomes Date/Time User Outcome 10/17/23 0829 Ravinder Sandra, STEM SIZER Progressing 10/16/23 1320 Sabina Helms, PT Progressing 10/16/23 1126 Sabina Helms PT Progressing Goal note from Hospital Encounter 09/14/2023 by Ravinder Sandra PTA Evaluation of progress towards goal: SBA with sit to stand and stand to sit. Physical Therapy Care Plan (Resolved) There are no resolved problems. Principal Problem: Primary localized osteoarthritis of left hip Associated attestation - Betzy aRmírez, PT - 10/17/2023 8:41 AM EST I have reviewed and agree with this note and education documentation for this visit. [facility] 10-16-2023 Plan of care note Problem: Safety Goal: Patient will be injury free during hospitalization Description: INTERVENTIONS: 1. Assess patient's risk for falls and implement fall prevention plan of care per policy 2. Provide and maintain a safe environment 3. Proper use of double Identifiers 4. Medication administration using the 5 rights 5. Hand hygiene 6. Specimens are labeled at the bedside 7. Instruct patient/ patient business office representative about use of safety devices 8. Include patient/ patient business office representative in decisions related to safety Outcome: Progressing Note: Evaluation of progress towards goal: Safety maintained, pt alert to own abilities Problem: Infection Goal: Absence of infection during hospitalization Description: Interventions: 1. Assess and monitor for signs and symptoms of infection 2. Monitor lab/diagnostic results 3. Monitor all insertion sites i.e., indwelling lines, tubes and drains 4. Monitor endotracheal (as able) and nasal secretions for changes in amount and color 5. Administer medications as ordered 6. Instruct and encourage patient and family to use good hand hygiene technique 7. Identify and instruct patient/patient business office representative in use of appropriate isolation precautions for identified infection/symptoms 8. Provide and discuss with patient/patient business office representative on educational MDRO sheet 9. Encourage and monitor nutritional status daily and consult net developer with wcf if indicated 10. Implement neutropenic guidelines as needed 11. Review exposure to history of communicable disease and recent travel history on admission 12. Encourage annual influenza vaccine 13. Encourage pneumonia vaccine Outcome: Progressing Note: Evaluation of progress towards goal: No s/sx of infection Problem: Knowledge Deficit Goal: Patient/patient business office representative demonstrates understanding of disease process, treatment plan, medications, and discharge instructions Description: INTERVENTIONS 1. Complete learning assessment and assess knowledge base 2. Provide teaching at level of understanding 3. Provide teaching via preferred learning method(s) Outcome: Progressing Note: Evaluation of progress towards goal: Education provided on meds and tx plan [facility] [employer] 10-16-2023 History of Present illness Narrative Orthopedic Progress Note: @ASSESS@ Post-Operative Day 1 Status post Procedure(s): REPLACEMENT TOTAL JOINT HIP (Left) - Wound Class: Clean - Incision Closure: Deep and Superficial Layers Progress minor new problem patient reports that she is not able to ambulate or transfer independent and does not feel that she can go home and independent situation. She would like another day of therapy in the hospital. PLAN: Continue current plan of care yes Discharge Plan home Anticipated discharge date Possibly tomorrow SUBJECTIVE: Patient complains of pain Pain Level: moderate OBJECTIVE FINDINGS: BP 124/77 Pulse 75 Temp 36.7 C (98 F) (Oral) Resp 16 Ht 154.9 cm (5' 1 ) Wt 96.6 kg (213 lb) SpO2 99% BMI 40.25 kg/m O2 Device: None (Room air) Dressings intact and dry. Calf soft and supple. Leg lengths symmetric. General alert, appears stated age, and cooperative Neurovascular neurovascularly intact Wound Dressings intact DVT Exam No evidence of DVT seen on physical exam. Data Review Labs Recent Results (from the past 48 hour(s)) ABO Rh Repeat Collection Time: 10/15/23 9:30 AM Result Value Ref Range ABO O RH Positive Imaging X-ray hip left 2-3 views with or without pelvis Result Date: 10/15/2023 Narrative: History: Status post left hip replacement . Exam/Technique: AP and lateral views of the left hip Comparison: None Findings: Total left hip arthroplasty has been performed. Hardware appears in anatomic alignment. No acute bony pathology. Subcutaneous emphysema compatible with recent procedure. IMPRESSION: * Grossly uncomplicated postoperative appearance left hip replacement. Finalized by Reymundo Granados DO on 10/15/2023 2:45 PM X-ray chest 2 views Result Date: 09/18/2023 Narrative: CHEST RADIOGRAPH 09/18/2023 10:03 AM CLINICAL INDICATION: Preoperative testing, history of atrial fibrillation and hypertension. TECHNIQUE: Frontal and lateral views of the chest were obtained. COMPARISON: No comparison study. FINDINGS: Lungs: Lungs are free of infiltrate. There is no pleural effusion or pneumothorax. Heart: Heart size is normal. Mediastinum: Mediastinal contour is normal. Other: No displaced fractures identified. IMPRESSION: 1. No acute intrathoracic process. Finalized by Wes Rosales MD on 09/18/2023 11:43 AM X-ray chest 2 views Result Date: 09/18/2023 Narrative: THIS EXAM WAS PERFORMED AT [facility] CHEST RADIOGRAPH 09/18/2023 10:03 AM CLINICAL INDICATION: Preoperative testing, history of atrial fibrillation and hypertension. TECHNIQUE: Frontal and lateral views of the chest were obtained. COMPARISON: No comparison study. FINDINGS: Lungs: Lungs are free of infiltrate. There is no pleural effusion or pneumothorax. Heart: Heart size is normal. Mediastinum: Mediastinal contour is normal. Other: No displaced fractures identified. IMPRESSION: 1. No acute intrathoracic process. Finalized by Wes Rosales MD on 09/18/2023 11:43 AM documented in this encounter [employer] 10-16-2023 Progress note Formatting of t his note is different from the original. Physical Therapy Treatment Discharge Recommendations PT Recommendations: Home Post Discharge Therapy Recommendations: Home Physical Therapy 6 Clicks: Basic Mobility Turning from your back to your side while in a flat bed without using bed rails?: A little Moving from lying on your back to sitting on side of flat bed without using bed rails?: A little Moving to and from bed to a chair (including w/c)?: A little Standing up from a chair using your arms (e.g. w/c or bedside chair)?: None To walk in hospital room?: A little Climbing 3-5 steps with a railing?: A lot Scoring 6 Clicks: Basic Mobility Raw Score: 18 CMS G Code Modifier: CK Therapy Plan Need for skilled Physical Therapy to address deficits in functional mobility due to a status decline resulting from S/P L ALIN. 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 Other: S/P L ALIN Pain Assessment Pain Assessment: 0-10 Pain Score: 9 Pain Type: Acute pain Pain Location: Hip Pain Orientation: Left Cognition Orientation Level: Oriented X4 Bed Mobility Sit to Supine: Min assist Transfers Sit to Stand: Standby assist Stand to Sit: Standby assist Toilet Transfers: Contact guard assist Gait Base of Support: Wide Pattern: Decreased ana, Antalgic gait Gait Assistance: Contact guard assist Assistive Device: Rolling walker Gait Distance: 15ft, 25ft Limiting Factors to Gait: Pain 2 Turns: Yes Balance Sitting Balance: Static: Good Sitting Balance: Dynamic: Good Standing Balance: Static: Fair Standing Balance: Dynamic: Fair Activity Tolerance Endurance: Tolerates <30 minutes activity WITHOUT vital sign changes Plan Physical Therapy Care Plan Physical Therapy Care Plan (Active) Template: PT - Physical Therapy Problem: Activity Tolerance Dates: Start: 10/15/23 Disciplines: PT Goal: Tolerate 30 minutes of activity WITH rest breaks Dates: Start: 10/15/23 Expected End: 10/24/23 Description: Goal Description: Disciplines: PT Problem: Bed Mobility Dates: Start: 10/15/23 Disciplines: PT Goal: Patient will perform bed mobility with Stand By Assist Dates: Start: 10/15/23 Expected End: 10/24/23 Description: Goal Description: Pt to perform bed mobility in order to be able to decrease risk of further skin breakdown. Disciplines: PT Outcomes Date/Time User Outcome 10/16/23 1320 Sabina Helms, PT Progressing 10/16/23 1126 Sabina Helms, PT Not Progressing Goal note from Hospital Encounter 09/14/2023 by Sabina Helms PT Evaluation of progress towards goal: min A Problem: Gait Dates: Start: 10/15/23 Disciplines: PT Goal: Patient will perform gait with Stand By Assist Dates: Start: 10/15/23 Expected End: 10/24/23 Description: Pt to be able to ambulate 100ft with rolling walker to be able to safely manage household distances at discharge. Disciplines: PT Outcomes Date/Time User Outcome 10/16/23 1320 Sabina Helms, PT Progressing 10/16/23 1126 Sabina Helms, PT Not Progressing Goal note from Hospital Encounter 09/14/2023 by Sabina Helms PT Evaluation of progress towards goal: 25ft with walker Problem: Standing Balance Dates: Start: 10/15/23 Disciplines: PT Goal: Improve balance to good Dates: Start: 10/15/23 Expected End: 10/24/23 Description: Static Dynamic Pt to have balance of good in order to decrease risk of falls at discharge. Disciplines: PT Outcomes Date/Time User Outcome 10/16/23 1320 Sabina Helms, PT Progressing 10/16/23 1126 Sabina Helms PT Not Progressing Goal note from Hospital Encounter 09/14/2023 by Sabina Helms PT Evaluation of progress towards goal: fair Problem: Strength Dates: Start: 10/15/23 Disciplines: PT Goal: Improve strength Dates: Start: 10/15/23 Expected End: 10/24/23 Description: Of extremity/ location: left LE to at least 4-/5 To facilitate: improved transfers Disciplines: PT Outcomes Date/Time User Outcome 10/16/23 1126 Sabina Helms, PT Not Progressing Goal note from Hospital Encounter 09/14/2023 by Sabina Helms PT Evaluation of progress towards goal: no change Problem: Transfers Dates: Start: 10/15/23 Disciplines: PT Goal: Patient will perform transfers with Stand By Assist Dates: Start: 10/15/23 Expected End: 10/24/23 Description: Goal Description: Pt to be able to safely transfer with least amount of assistance to demonstrate decreased need for caregiver assistance and ease with home transfers. Disciplines: PT Outcomes Date/Time User Outcome 10/16/23 1320 Sabina Helms, PT Progressing 10/16/23 1126 Sabina Helms PT Progressing Goal note from Hospital Encounter 09/14/2023 by Sabina Helms PT Evaluation of progress towards goal: sit to stand with SBA Physical Therapy Care Plan (Resolved) There are no resolved problems. Principal Problem: Primary localized osteoarthritis of left hip [facility] [employer] 10-16-2023 Progress note Formatting of t his note is different from the original. Physical Therapy Treatment Discharge Recommendations PT Recommendations: Home Post Discharge Therapy Recommendations: Home Physical Therapy 6 Clicks: Basic Mobility Turning from your back to your side while in a flat bed without using bed rails?: A little Moving from lying on your back to sitting on side of flat bed without using bed rails?: A little Moving to and from bed to a chair (including w/c)?: A little Standing up from a chair using your arms (e.g. w/c or bedside chair)?: A little To walk in hospital room?: A little Climbing 3-5 steps with a railing?: A lot Scoring 6 Clicks: Basic Mobility Raw Score: 17 CMS G Code Modifier: CK Therapy Plan Need for skilled Physical Therapy to address deficits in functional mobility due to a status decline resulting from S/P L ALIN. Patient Response to Treatment: Progressing toward goals Assessment Patient Assessment Patient Response to Treatment: Progressing toward goals Visit RN Communication: Yes Medical Record Reviewed: Yes PT Type of Visit: Treatment Precautions Activity: early mobility ok pass, Ok to treat per Freida DELEON Equipment: rolling walker, nonskid socks, IV, gait belt Weight Bearing Status: WBAT L LE Telemetry/Radio Mechanic Helper: Yes Other: S/P L ALIN Pain Assessment Pain Assessment: 0-10 Pain Score: 9 Pain Type: Acute pain Pain Location: Hip Pain Orientation: Left Cognition Orientation Level: Oriented X4 Bed Mobility Sit to Supine: Mod assist (with lifting L LE into the bed only, patient able to scoot self up in bed without assistance) Transfers Sit to Stand: Contact guard assist, Verbal cues Stand to Sit: Contact guard assist, Verbal cues Gait Base of Support: Wide Pattern: Decreased ana, Antalgic gait Gait Assistance: Contact guard assist Assistive Device: Rolling walker Gait Distance: 15ft Limiting Factors to Gait: Pain 2 Turns: Yes Balance Sitting Balance: Static: Good Sitting Balance: Dynamic: Good Standing Balance: Static: Fair Standing Balance: Dynamic: Fair Activity Tolerance Endurance: Tolerates <30 minutes activity WITHOUT vital sign changes Plan Physical Therapy Care Plan Physical Therapy Care Plan (Active) Template: PT - Physical Therapy Problem: Activity Tolerance Dates: Start: 10/15/23 Disciplines: PT Goal: Tolerate 30 minutes of activity WITH rest breaks Dates: Start: 10/15/23 Expected End: 10/24/23 Description: Goal Description: Disciplines: PT Problem: Bed Mobility Dates: Start: 10/15/23 Disciplines: PT Goal: Patient will perform bed mobility with Stand By Assist Dates: Start: 10/15/23 Expected End: 10/24/23 Description: Goal Description: Pt to perform bed mobility in order to be able to decrease risk of further skin breakdown. Disciplines: PT Outcomes Date/Time User Outcome 10/16/23 1126 Sabina Helms PT Not Progressing Goal note from Hospital Encounter 09/14/2023 by Sabina Helms PT Evaluation of progress towards goal: min A Problem: Gait Dates: Start: 10/15/23 Disciplines: PT Goal: Patient will perform gait with Stand By Assist Dates: Start: 10/15/23 Expected End: 10/24/23 Description: Pt to be able to ambulate 100ft with rolling walker to be able to safely manage household distances at discharge. Disciplines: PT Outcomes Date/Time User Outcome 10/16/23 1126 Sabina Helms PT Not Progressing Goal note from Hospital Encounter 09/14/2023 by Sabina Helms PT Evaluation of progress towards goal: 15ft with walker Problem: Standing Balance Dates: Start: 10/15/23 Disciplines: PT Goal: Improve balance to good Dates: Start: 10/15/23 Expected End: 10/24/23 Description: Static Dynamic Pt to have balance of good in order to decrease risk of falls at discharge. Disciplines: PT Outcomes Date/Time User Outcome 10/16/23 1126 Sabina Helms PT Not Progressing Goal note from Hospital Encounter 09/14/2023 by Sabina Helms PT Evaluation of progress towards goal: fair Problem: Strength Dates: Start: 10/15/23 Disciplines: PT Goal: Improve strength Dates: Start: 10/15/23 Expected End: 10/24/23 Description: Of extremity/ location: left LE to at least 4-/5 To facilitate: improved transfers Disciplines: PT Outcomes Date/Time User Outcome 10/16/23 1126 Sabina Helms PT Not Progressing Goal note from Hospital Encounter 09/14/2023 by Sabina Helms PT Evaluation of progress towards goal: no change Problem: Transfers Dates: Start: 10/15/23 Disciplines: PT Goal: Patient will perform transfers with Stand By Assist Dates: Start: 10/15/23 Expected End: 10/24/23 Description: Goal Description: Pt to be able to safely transfer with least amount of assistance to demonstrate decreased need for caregiver assistance and ease with home transfers. Disciplines: PT Outcomes Date/Time User Outcome 10/16/23 1126 Sabina Helms PT Progressing Goal note from Hospital Encounter 09/14/2023 by Sabina Helms PT Evaluation of progress towards goal: CGA Physical Therapy Care Plan (Resolved) There are no resolved problems. Principal Problem: Primary localized osteoarthritis of left hip [facility] [employer] 10-16-2023 Progress note Formatting of t his note is different from the original. Occupational Therapy Evaluation Discharge Recommendations OT Recommendations : Home Home Recommendations: Intermittent caregiver support for: (ADls, IADls, mobility, transportation, safety) Post Discharge Therapy Recommendations: Home Occupational Therapy 6 Clicks: Daily Activity Putting on and taking off regular lower body clothing?: A lot Bathing (including washing, rinsing, drying)?: A little Toileting, which includes using toilet, bedpan or urinal?: A lot Putting on and taking off regular upper body clothing?: A little Taking care of personal grooming such as brushing teeth?: None Eating meals?: None Scoring Daily Activity Raw Score: 18 [facility] G Code Modifier: CK Therapy Plan/HPI/occupational profile throughout eval Need for skilled Occupational Therapy to address deficits in ADL independence and functional mobility due to a status decline resulting from status post L hip replacement. A moderate complex eval was completed. Past Surgical History: Procedure Laterality Date ANKLE ARTHROPLASTY Left ARTHROSCOPY KNEE x 2 BACK SURGERY 2021 nerve cautery DILATION AND CURETTAGE OF UTERUS 07/2023 alexsandra JOINT REPLACEMENT Right hip- done in [place] LAPAROTOMY SALPINGO OOPHORECTOMY Left Past Medical History: Diagnosis Date Arthritis Atrial fibrillation ([facility]) Hypertension Hypothyroidism OA (osteoarthritis) Obesity Visual impairment OT Treatment/Interventions: ADL retraining, Functional transfer training, UE strengthening/ROM, Endurance training, Cognitive reorientation, Patient/family training, Balance, Equipment eval/education, Home management, Compensatory technique education, Functional activities OT Frequency: 4-5days/week OT Duration: 10 days Assessment Patient Assessment Therapy Problem List: Decreased ADL status, Decreased balance, Decreased endurance, Decreased gross motor, Decreased high-level ADLs, Decreased mobility, Decreased safe judgement during ADL, Decreased self-care trans Patient Response to Treatment: Tolerated evaluation without adverse reaction Mood/Affect: Appropriate for circumstances Rehab Prognosis: Good, With continued OT status post acute discharge Visit RN Communication: Yes Medical Record Reviewed: Yes OT Type of Visit: Evaluation Precautions Activity: early mobility pass, Ok to treat per Katie DELEON Equipment: rolling walker, nonskid socks, IV, gait belt Weight Bearing Status: WBAT L LE Telemetry/Radio Mechanic Helper: Yes Oxygen Used: room air Other: fall risk, hip precautions Pain Assessment Pain Assessment: 0-10 Pain Score: 1 Home Living Type of Home: Apartment Home Layout: One level (laundry across the court yard) Stairs to Enter: 0 Bathroom Shower/Tub: Tub/shower unit Bathroom Toilet: Raised Bathroom Equipment: Grab bars in shower Bathroom Accessibility: Accessible via walker Home Equipment: Rolling walker Prior Function Lives With: Daughter (14 year old daugther, 20 daugther lives in town but not with patient) Receives Help From: Family Level of Mobility: Independent with ADLs and functional transfers or gait Homemaking Assistance: Independent 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) Other: off work until November ADL / IADL Hand Dominance: Right Eating Assistance: Setup Grooming Assistance: Standby assist (seated) Bathing/Showering Assistance: Mod assist Bathing/Showering Deficit: Buttocks, Left lower leg including foot, Right lower leg including foot Toilet/Commode Assistance: Max assist Toilet/Commode Deficit: Perineal hygiene, Clothing management down, Clothing management up UE Dressing Assistance: Standby assist LE Dressing Assistance: Max assist LE Dressing Deficit: Thread LLE into underwear, Thread RLE into underwear, Pull up over right hip, Pull up over left hip Footwear Assistance: Total assist Other: patient ed on role and goals of OT, agreeble to OT eval. patient ed on hip precautons and use of hip kit which pt has in room, breakfast tray arrives during ADL tasks and ADLs therefore terminated. further ADL assessment is based on clinical judgement and obseration of pt's ability to complete ROM, strength, endurance, siit and stand balance, functional mobility status and safety awareness Home Management - IADL Other: patient ed on role and goals of OT, agreeble to OT eval. patient ed on hip precautons and use of hip kit which pt has in room, breakfast tray arrives during ADL tasks and ADLs therefore terminated. further ADL assessment is based on clinical judgement and obseration of pt's ability to complete ROM, strength, endurance, siit and stand balance, functional mobility status and safety awareness Hearing / Speech / Vision Hearing: Within Functional Limits Speech: Within Functional Limits Current Vision: Wears glasses only for reading Bed Mobility Supine to Sit: Min assist (head of bed elevated, use of bed rail , verbal cues needed to slow down for safety) Sit to Supine: (remains in chair at end of session , needs with inreach, ed to use call light) Other: after sitting in chair pt reports feeling light headed and hot, refuses to have LE s eleated pt is instructed to drink more, RN made aware. resolved prior OT depature Transfers Sit to Stand: Contact guard assist, Verbal cues Stand to Sit: Contact guard assist, Verbal cues Bed to Chair: Min assist, Verbal cues Other: cues to slow down to adhere to precautions Balance Sitting Balance: Static: Good Sitting Balance: Dynamic: Good, Fair Standing Balance: Static: Fair Standing Balance: Dynamic: Fair Other: completes stand pivot from edge of bed to chair to eat breakf, cues for safety needed CGA/ min assist provided due to pt feeling light headed after taking pain medication RUE Assessment: Within Functional Limits LUE Assessment: Within Functional Limits Activity Tolerance Endurance: Tolerates 30 minutes activity with rest breaks Other: poor standing tolerance after recieving pain medication Plan Occupational Therapy Care Plan Occupational Therapy Care Plan (Active) Template: OT - Occupational Therapy Problem: Activity Tolerance Dates: Start: 10/16/23 Disciplines: OT Goal: Tolerate > 30 minutes of activity WITH rest breaks Dates: Start: 10/16/23 Expected End: 10/25/23 Description: Goal Description:patient to engage in activities of choice with out changes in vitals in order to promote return to prior level of function Disciplines: OT Problem: Other (Customize) Dates: Start: 10/16/23 Disciplines: OT Goal: Improve Dates: Start: 10/16/23 Expected End: 10/25/23 Description: Goal Description:Patient to increase IND in ADls to supervision with use of AE in order to adhere to precautions incuding toilet tasks and transfers in order to promote return to prior level of function Disciplines: OT Problem: Standing Balance Dates: Start: 10/16/23 Disciplines: OT Goal: Improve balance to good Dates: Start: 10/16/23 Expected End: 10/25/23 Description: Patient to increase standing balance to good in order to increase IND in ADLS and lower body dressing tasks Disciplines: OT Occupational Therapy Care Plan (Resolved) There are no resolved problems. Principal Problem: Primary localized osteoarthritis of left hip [employer] Work Phone: 10-16-2023 Plan of care note Problem: Knowledge Deficit Goal: Patient/patient business office representative demonstrates understanding of disease process, treatment plan, medications, and discharge instructions Description: INTERVENTIONS 1. Complete learning assessment and assess knowledge base 2. Provide teaching at level of understanding 3. Provide teaching via preferred learning method(s) Outcome: Progressing Note: Evaluation of progress towards goal: pt educated on treatment plan, will continue to update pt prn. All questions answered at this time. [facility] [employer] 10-16-2023 Progress note Formatting of t his note might be different from the original. DISCHARGE PLANNING NOTE Follow-up Discharge Planning Progress Note Per RN during discharge transition rounds, barriers to discharge are: None Discharge Plan: DC to home with [facility]. Care Navigation will continue to follow for any discharge needs [facility] [employer] [facility] 10-15-2023 Plan of care note Problem: Pain Goal: Patient goal is pain score less than 4, able to rest, and participant in treatment plan as appropriate Description: INTERVENTIONS: 1. Encourage patient or legal business office representative to report early pain and ask for pain medicine when needed 2. Assess pain using appropriate pain scale and include the scale used when documenting 3. Administer analgesics based on type and severity of pain and evaluate response within appropriate time frame 4. Implement non-pharmacological measures as appropriate and evaluate response 5. Consider cultural and social influences on pain and pain management 6. Notify LIP if interventions ineffective or patient reports new pain 7. Monitor vital signs including pulse ox, end-tidal CO2 based on pain intervention 8. Reassess pain per policy 9. Teach patient or legal business office representative interventions for comforting Outcome: Progressing Note: Evaluation of progress towards goal: Pt rates pain 8, prn medication available. Problem: Safety Goal: Patient will be injury free during hospitalization Description: INTERVENTIONS: 1. Assess patient's risk for falls and implement fall prevention plan of care per policy 2. Provide and maintain a safe environment 3. Proper use of double Identifiers 4. Medication administration using the 5 rights 5. Hand hygiene 6. Specimens are labeled at the bedside 7. Instruct patient/ patient business office representative about use of safety devices 8. Include patient/ patient business office representative in decisions related to safety Outcome: Progressing Note: Evaluation of progress towards goal: Pt. Remains free from falls and injuries. Call light in reach, bed in lowest position. Problem: Infection Goal: Absence of infection during hospitalization Description: Interventions: 1. Assess and monitor for signs and symptoms of infection 2. Monitor lab/diagnostic results 3. Monitor all insertion sites i.e., indwelling lines, tubes and drains 4. Monitor endotracheal (as able) and nasal secretions for changes in amount and color 5. Administer medications as ordered 6. Instruct and encourage patient and family to use good hand hygiene technique 7. Identify and instruct patient/patient business office representative in use of appropriate isolation precautions for identified infection/symptoms 8. Provide and discuss with patient/patient business office representative on educational MDRO sheet 9. Encourage and monitor nutritional status daily and consult net developer with wcf if indicated 10. Implement neutropenic guidelines as needed 11. Review exposure to history of communicable disease and recent travel history on admission 12. Encourage annual influenza vaccine 13. 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 Complete learning assessment and assess knowledge base 2. Provide teaching at level of understanding 3. Provide teaching via preferred learning method(s) Outcome: Progressing Note: Evaluation of progress towards goal: Patient updated on POC along with medication. Patient voiced understanding. Problem: Discharge Planning Goal: Discharge to post-acute care, other facility, or home with appropriate resources Description: Patient's goal is: INTERVENTIONS 1. Conduct assessment to determine patient/family and health care team treatment goals, and need for post-acute services based on payer coverage, community resources, and patient preferences, and barriers to discharge 2. Coordinate with Social work, Care Navigation, and Utilization Review to arrange appropriate level of services according to patient's needs based on patient preference and payer coverage in collaboration with the physician and health care team 3. Address psychosocial, clinical, and financial barriers to discharge as identified in assessment in conjunction with the patient/family and health care team 4. Consult appropriate ancillary services (i.e.. PT/OT/ST, etc) as needed 5. Communicate with and update the patient/family, physician, and health care team regarding progress on the discharge plan 6. Identify discharge learning needs (meds, wound care, etc). 7. Arrange for needed discharge transportation as appropriate Outcome: Progressing Note: Evaluation of progress towards goal: Multidisciplinary teams working together with patient to achieve discharge goals. [facility] 10-15-2023 Plan of care note Problem: Pain Goal: Patient goal is pain score less than 4, able to rest, and participant in treatment plan as appropriate Description: INTERVENTIONS: 1. Encourage patient or legal business office representative to report early pain and ask for pain medicine when needed 2. Assess pain using appropriate pain scale and include the scale used when documenting 3. Administer analgesics based on type and severity of pain and evaluate response within appropriate time frame 4. Implement non-pharmacological measures as appropriate and evaluate response 5. Consider cultural and social influences on pain and pain management 6. Notify LIP if interventions ineffective or patient reports new pain 7. Monitor vital signs including pulse ox, end-tidal CO2 based on pain intervention 8. Reassess pain per policy 9. Teach patient or legal business office representative interventions for comforting Outcome: Progressing Note: Evaluation of progress towards goal: Pt able to report pain according to 0/10 pain scale. Medicating patient for pain per orders. [facility] 10-15-2023 Progress note Formatting of t his note is different from the original. Images from the original note were not included. DISCHARGE PLANNING NOTE 10/15/23 3007 Discharge Disposition Discharge Disposition Home with Self Care County Information [facility] Patient Information Primary Caregiver Self Support System Immediate family (14 yr old dtr Yamilka & 20 year old daughter Claudine) Stressors Type of stressor (does not endorse) Income Information Income Information Employed ([employer]) Referral To Community Resources Denies needs Discharge Planning Living Arrangements Minor Child(fabrizio);Private Residence Support Systems Children Assistance Needed has rodolfo Type of Residence Private residence Private Residence [place] Residence Accessibility Steps into home Number of Steps 1 Home Care Services No Community Agencies Currently Utilized None Patient expects to be discharged to: home Does the patient need discharge transport arranged? No Services Requested: Services Requested Discharge Disposition: Home with self care ([facility] to provide in home therapy.) Initial DC Assessment Completed: Yes DC Planning Complete Discharge Milestones: Yes Patient Goals: Patient/Caregiver Goals Patient/Caregiver Goals: Home No Needs ([facility] to provide in home therapy) Home No Needs: Caregiver/Family Goals home (pt-stated) Evaluation of progress towards goal: has been up with therapy Chart reviewed. Pleasant pt agreeable to conversation with her & mom in room, introduced self & role of SW; assessment/goals as above. Pt does not endorse substance use; pt said she has 2-3 glasses a wine per day or 2-3 beer, pt does not endorse alcohol abuse. Pt does not endorse food insecurity or financial stressors. Pt is able to afford home medications. Pt has functioning water, heat, cooling & electric in the home. Pt does not endorse anxiety, depression or other mental health concerns. Negative [place] screen. Pt provides own transportation; oldest daughter will be able to assist at [place]. 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 Pt relayed her 14 yr old Yamilka will be available to assist & oldest daughter Claudine as well. Patient's preferred pharmacy is [facility]. PCP verified as Sam Hancock. Preadmission plan established with [facility] to provide in home therapy at [place], pt confirms DC plan. Pt has walker. Pt does not endorse any current DC needs. Opportunity provided to ask questions, pt does not endorse any at this time. Sticky note on chart regarding DC plan. Plan to prevent readmission is for pt to follow up with orthopedist & PCPfollow DC instructions including therapy & medication compliance and to reach out to health care team as needed. Sticky note on chart regarding DC plan. Care Navigation following for safe care transition. [facility] Progress note Formatting of t his note is different from the original. Physical Therapy Evaluation Discharge Recommendations PT Recommendations: Home Home Recommendations: Intermittent caregiver support for: Post Discharge Therapy Recommendations: Home Physical Therapy Line O Scribe Operator Support for-: ADL Deficits, Mobility Deficits Past Medical History: Diagnosis Date Arthritis Atrial fibrillation (CMS-HCC) Hypertension Hypothyroidism OA (osteoarthritis) Obesity Visual impairment Past Surgical History: Procedure Laterality Date ANKLE ARTHROPLASTY Left ARTHROSCOPY KNEE x 2 BACK SURGERY 2021 nerve cautery DILATION AND CURETTAGE OF UTERUS 07/2023 alexsandra JOINT REPLACEMENT Right hip- done in [place] LAPAROTOMY SALPINGO OOPHORECTOMY Left 6 Clicks: Basic Mobility Turning from your back to your side while in a flat bed without using bed rails?: A little Moving from lying on your back to sitting on side of flat bed without using bed rails?: A little Moving to and from bed to a chair (including w/c)?: A little Standing up from a chair using your arms (e.g. w/c or bedside chair)?: A little To walk in hospital room?: A little Climbing 3-5 steps with a railing?: A lot Scoring 6 Clicks: Basic Mobility Raw Score: 17 CMS G Code Modifier: CK Therapy Plan Need for skilled Physical Therapy to address deficits in functional mobility due to a status decline resulting from S/P L ALIN on 10/15/[address] Keen. PT Treatment/Interventions: Functional transfer training, LE strengthening/ROM, Endurance training, Balance, Stair training, Bed mobility, Gait training, Functional activities, Neuromuscular reeducation PT Frequency: Other (comment) (1-2x/day) PT Duration: 10 days Patient Response to Treatment: Tolerated evaluation without adverse reaction Assessment Patient Assessment Therapy Problem List: Abnormal posture, Decreased balance, Decreased endurance, Decreased mobility, Decreased LE ROM, Decreased LE strength Patient Response to Treatment: Tolerated evaluation without adverse reaction Mood/Affect: Appropriate for circumstances Rehab Prognosis: Good, With continued PT status post acute discharge Visit RN Communication: Yes Medical Record Reviewed: Yes PT Type of Visit: Evaluation Precautions Activity: early mobility ok pass, Ok to evaluate per Raisa DELEON Equipment: rolling walker, nonskid socks, IV, gait belt Weight Bearing Status: WBAT L LE Telemetry/Radio Mechanic Helper: Yes Oxygen Used: room air Other: S/P L ALIN, Pain Assessment Pain Assessment: 0-10 Pain Score: 9 Pain Type: Acute pain Pain Location: Hip Pain Orientation: Left Pain Intervention(s): Repositioned, Ambulation/increased activity Response to Interventions: Pain improved Home Living Type of Home: Apartment Home Layout: One level Stairs to Enter: 0 Stairs in Home: 0 Bathroom Shower/Tub: Tub/shower unit Bathroom Toilet: Raised Bathroom Equipment: Grab bars in shower Bathroom Accessibility: Accessible via walker Home Equipment: Rolling walker Prior Function Lives With: Daughter (14yo daughter) Receives Help From: Family Level of Mobility: Independent with ADLs and functional transfers or gait Homemaking Assistance: Independent Hearing / Speech / Vision Hearing: Within Functional Limits Speech: Within Functional Limits Current Vision: Wears glasses only for reading Cognition Overall Cognitive Status: Within Functional Limits Bed Mobility Supine to Sit: Min assist Other: Cues for precautions in supine Transfers Sit to Stand: Contact guard assist, Verbal cues Stand to Sit: Contact guard assist, Verbal cues Toilet Transfers: Contact guard assist, Verbal cues (raised toilet) Other: Cues for hand placement and positioning as well as precautions in sitting Gait Base of Support: Wide Pattern: Decreased ana, Antalgic gait Gait Assistance: Contact guard assist Assistive Device: Rolling walker Gait Distance: 15ft x 2 Limiting Factors to Gait: Pain Included Uneven Surface: Yes 2 Turns: Yes Balance Sitting Balance: Static: Good Sitting Balance: Dynamic: Good Standing Balance: Static: Fair Standing Balance: Dynamic: Fair RLE Assessment: (4-/5) LLE Assessment: (3-/5) Activity Tolerance Endurance: Tolerates <30 minutes activity WITHOUT vital sign changes Plan Physical Therapy Care Plan Physical Therapy Care Plan (Active) Template: PT - Physical Therapy Problem: Activity Tolerance Dates: Start: 10/15/23 Disciplines: PT Goal: Tolerate 30 minutes of activity WITH rest breaks Dates: Start: 10/15/23 Expected End: 10/24/23 Description: Goal Description: Disciplines: PT Problem: Bed Mobility Dates: Start: 10/15/23 Disciplines: PT Goal: Patient will perform bed mobility with Stand By Assist Dates: Start: 10/15/23 Expected End: 10/24/23 Description: Goal Description: Pt to perform bed mobility in order to be able to decrease risk of further skin breakdown. Disciplines: PT Problem: Gait Dates: Start: 10/15/23 Disciplines: PT Goal: Patient will perform gait with Stand By Assist Dates: Start: 10/15/23 Expected End: 10/24/23 Description: Pt to be able to ambulate 100ft with rolling walker to be able to safely manage household distances at discharge. Disciplines: PT Problem: Standing Balance Dates: Start: 10/15/23 Disciplines: PT Goal: Improve balance to good Dates: Start: 10/15/23 Expected End: 10/24/23 Description: Static Dynamic Pt to have balance of good in order to decrease risk of falls at discharge. Disciplines: PT Problem: Strength Dates: Start: 10/15/23 Disciplines: PT Goal: Improve strength Dates: Start: 10/15/23 Expected End: 10/24/23 Description: Of extremity/ location: left LE to at least 4-/5 To facilitate: improved transfers Disciplines: PT Problem: Transfers Dates: Start: 10/15/23 Disciplines: PT Goal: Patient will perform transfers with Stand By Assist Dates: Start: 10/15/23 Expected End: 10/24/23 Description: Goal Description: Pt to be able to safely transfer with least amount of assistance to demonstrate decreased need for caregiver assistance and ease with home transfers. Disciplines: PT Physical Therapy Care Plan (Resolved) There are no resolved problems. Principal Problem: Primary localized osteoarthritis of left hip [email or web address] [employer] [facility] 10-15-2023 Procedure note Summary: Left hip replacement Doris Badillo Date of : 1965 Date of Surgery: 10/15/2023 Preoperative diagnosis: Primary osteoarthritis left hip Postoperative diagnosis: Same Procedure: Left total hip arthroplasty Implants: [place] B 1 Fitmore stem with standard offset 44 mm cup with a 28 x 44 high wall liner 3.5/28 ceramic head Surgeon: Ever Keen DO Anesthesia: Anesthesiologist: Agustín Cox DO MILLWRIGHT HELPER: Suzette Pollock APRN-CARMEN Monitored Anesthesia Care, Spinal OR staff: Guest Advisor Primary: Katrin Mcnair RN Guest Advisor Relief: Lorna Pedraza RN Scrub Person: Jacquelyn Mcfarlane CST; ST Wendy Hart Assistant: Lan Kim Estimated blood loss: 300 mL Complications: None Findings: [id number] left hip small anatomy small femoral head small AP diameter of the proximal femur Procedure summary: After administration of anesthesia she was positioned in the lateral decubitus position care was taken to pad and protect bony prominences and neurovascular facial structures the left hip was prepped and draped in usual fashion a time-out was taken. Incision was centered over the greater trochanter and dissection proceeded through a very deep layer of fat until the fascia cristino was encountered the fascia cristino was incised a deep bladed Charnley retractor was placed underneath this the bursa was incised the anterior 1/3 of gluteus medius was detached from the greater trochanter leaving a cuff of tissue for repair. The capsule was incised and the hip was dislocated raw bone was noted on the femoral head femoral neck was cut with a reciprocating saw the femoral head sized out to 41 mm My attention was turned towards the acetabulum labrum was excised the central soft tissues were excised. I medialized with a 41 mm Reamer and then reamed again it with 43 I impacted a 44 mm cup it was snug and secure. I further stabilized this with 26.5 mm acetabular screws and an apex hole eliminating screw. A 28 by 42 standard liner was clicked into place. My attention was turned back towards the femur the canal was opened with a box osteotome then a handheld Reamer to find the trajectory of the canal broaching was performed 1st with an opening broach and then with a B1 broach. The B1 was the smallest broach that matched the implantable implant. This broach could not be fully seated I backed up to the opening our starter broach and I broached several times but the patient's anterior to posterior dimensions were incredibly narrow and the broach was down [id number] with no room for play I did left the broach proud because there was solid fixation and forcing it deeper would have cracked the femur. I did trial reductions and found the soft tissues balanced nicely. I took the hip through extremes of range of motion without tendency towards dislocation. The broach and trial components were removed I then implanted a B1 standard offset Fitmore stem once again leaving it significantly proud but noting that it was rotationally stable and rock solid. A +3 5 ceramic head with a 28 mm diameter was impacted into place the hip was reduced 1 more time I took range of motion to extremes and I found that with extension and external rotation there was instability superiorly and anteriorly but stable in all other planes I elected to revise the acetabulum. Prosthesis was dislocated and the liner was removed. The cup was removed I repositioned it into a more horizontal in neutral version angle. I then put the liner back in and did trial range of motion there was no tendency towards dislocation I secured the cup and it is more horizontal in neutral version position with 6.5 mm acetabular screws I reinserted the apex hole eliminating screw I soaked the cup with diluted Betadine washed it out the implanted a new 28 x 44 liner with a high wall. Positioning the wall mostly superiorly and slightly anteriorly I clicked it into place and checked for integrity. I reduced the hip again I took it to extremes of range of motion I tried to force the dislocation and 1 did not occur the soft tissues were well balanced. I irrigated thoroughly I soaked the wound in diluted Betadine and irrigated some more I repaired the gluteus medius with a 5. Ethibond suture and then oversewed this with an 0 Vicryl I closed the fascia cristino with 0 Vicryl I closed the deep fat layer in a layered fashion with 0 Vicryl suture I closed the subcutaneous layer with Vicryl suture and then a running subcuticular stitch tincture benzoin and Steri-Strips. The patient tolerated the surgery without complication [facility] Attending History and physical note HISTORY AND PHYSICAL INTERVAL NOTE: Doris Badillo 1965 [id number] H&P reviewed. The patient was examined and there are no changes to the H&P. Ever Keen DO Source Note - Ever Keen DO - 10/09/2023 1:35 PM EST [facility] [employer] [facility] 10-15-2023 History and physical note HISTORY AND PHYSICAL INTERVAL NOTE: Doris Badillo 1965 [id number] H&P reviewed. The patient was examined and there are no changes to the H&P. Ever Keen DO Source Note - Ever Keen DO - 10/09/2023 1:35 PM EST documented in this encounter [facility] 09-18-2023 Instructions Nati Clark RN - 09/18/2023 9:45 AM EST Preoperative Education Checklist- General Surgery date: 10/15/23 Surgery time: 1015a Arrival time: 815a Please come back to the hospital between 10/05/23-10/14/23Thursday-Thursday 630a-430p. Stop at the registration desk upon arrival. After the lab draw, they will give you a green blood band, bring that back with you day of surgery. 1. Bring a photo ID and your insurance card with you the day of surgery. You will check in at the main lobby of the [facility]- registration desk is straight ahead as soon as you walk in. Tell them you are here for surgery. 2. If you have a Living Will/Durable Power of [facility] that is not on file here, please bring a copy the day of surgery. 3. Please shower/bathe the night before surgery with the provided soap or wipes. Do not shower the morning of surgery- you will do use wipes when you arrive here at the hospital before getting into your surgical gown. Do not shave the area of your procedure for 2 days prior to your surgery. 4. NO powder, lotion, perfume/cologne, aftershave, make-up, deodorant, or hair products after you have bathed. 5. NO nail georgian/acrylic on at least one finger. If you are having a hand, wrist or foot surgery then all nail georgian and artificial/acrylic nails must be removed from that hand or foot. 6. Avoid ALL Aspirin and non-steroidal anti-inflammatory drugs and certain vitamins (Ibuprofen, Advil, Aleve, Excedrin, Meloxicam, Celebrex, fish/krill oil, etc.) for 7 days prior to surgery as instructed by your surgeon and/or your prescribing doctor. Tylenol IS ALLOWED. If you are on Ticlid, Xarelto, Eliquis, Pradaxa, Plavix or Coumadin, please check with your prescribing doctor for instructions for when to stop them. 7. If you use an inhaler, continue to use it routinely. 8. Nothing to eat or drink (not even water, gum, mints, or hard candy!) AFTER midnight prior to your surgery. 9. Take only medications that you are instructed to on the morning of surgery with a TINY SIP OF WATER. 10. Choose a responsible adult that will be able to drive you home when you are discharged from your hospital stay for your surgery and can stay with you in your home for 24 hours after your procedure. You must NOT drive any vehicle or operate any machinery for 24 hours after surgery. 11. When you dress for your appointment, please wear loose fitting clothing that is appropriate to accommodate your surgical area procedure. BRING WITH YOU ANY DEVICES YOU MAY NEED: VERONICA hose, ice machine, sling/swath, brace or special shoe, oversized zip-up or button up shirt, CPAP machine if staying overnight. 12. Do NOT wear jewelry, watches, or any piercings or metal for surgery- leave these valuables and money at home. 13. Do NOT wear contact lenses for surgery- glasses are okay if needed. 14. The anesthesiologist will talk with you the day of surgery and will ask you to sign a Consent Form. 15. Refrain from smoking or any type of tobacco use for at least 8 hours and marijuana for 24 hours prior to arrival for your surgery. 16. If a GREEN BLOOD band is given to you, please bring it with you for the day of surgery. 17. Notify your surgeon if you develop any illness before your surgery. 18. If you are staying overnight, please DO NOT BRING your home medications with you. 19. If you have any questions prior to surgery, please call the Preadmission Testing office at [phone], Mon.-Fri. 7 a.m.-3 p.m. Leave a voicemail if needed. Pre-Surgery Instructions: Medication Instructions amLODIPine (NORVASC) 10 mg tablet Take morning of procedure ferrous sulfate 325 (65 FE) mg EC tablet Stop taking 0 days prior to procedure aspirin 81 mg Stop taking 14 days prior to procedure busPIRone (BUSPAR) 5 mg tablet Stop taking 0 days prior to procedure hydroCHLOROthiazide (HYDRODIURIL) 25 mg tablet Take morning of procedure hydrOXYzine (ATARAX) 25 mg tablet Stop taking 0 days prior to procedure losartan (COZAAR) 50 mg tablet Take morning of procedure PARoxetine (PAXIL) 30 mg tablet Stop taking 0 days prior to procedure phentermine (ADIPEX-P) 37.5 mg tablet Check with prescribing doctor for instructions How to Avoid an Infection after Your Surgery Your doctor will give you specific instructions, but remember: -ALWAYS wash hands before caring for your incision. -No picking, scratching, or rubbing your incision. -No creams, lotion, powder, rubbing alcohol or hydrogen peroxide on the incision (can harm the tissue and slow healing). -Your doctor will give you specific instructions for what type of dressing you will need and how often it will need changed for infection purposes. -No tight clothing on incision. -Do not allow anyone to touch your incision unless they are cleaning, checking, or redressing it (be sure they wash their hands first). -No contact of your incision with pets; avoid sleeping with pets. -Take full course of antibiotic if prescribed for you after surgery- do not stop unless directed to by your physician. You may also be given an antibiotic prior to your surgery to help prevent surgical site infections. -Eat a healthy and varied diet including proteins, fruits, and vegetables to help promote wound healing and keep blood sugars under control if you are diabetic. -Smoking slows the healing process by decreasing the amount of oxygen in your blood that is needed for tissue healing. Try to avoid or stop smoking if possible. LOOK at your incision each morning and each night to check the progress of healing. Some soreness, numbness, itching and/or mild bruising around the incision is normal. Call your doctor if you notice any of the following: -Increased redness or hardening around the incision area. -Increased pain at the incision site. -Incision feels hot to the touch. -Swelling or pulling apart of the incision edges. -Yellow or green drainage or foul odor coming from the incision. -Bleeding from the incision (apply pressure as needed). -Fever higher than 101 degrees Fahrenheit for more than 4 hours. SHOWERING: Your doctor will give you specific instructions, but remember: -Be careful getting into and out of the shower. -Showers should be quick (5 minutes or less). -Use a clean washcloth to gently wash your incision with soap and water and pat the area dry with a clean towel. -No re-using wash cloths or towels; get a fresh one to clean your incision. -Do not soak in the bathtub, go swimming or use a hot tub (Jacuzzi), or perform activities where your incision is submerged in water or exposed to any fluids or substances until instructed by your doctor. -If your have the sticky strips (steri-strips) over the incision, it is OK to shower with them. Do not remove them. Let them fall off on their own. If you have a question, call your doctor s office. Go to the follow-up appointment with your doctor. documented [facility] Cardiovascular Medic ine Progress Note SUBJECTIVE Chief Complaint Patient presents with Atrial Fibrillation Hypertension Doris Badillo is a 56 y.o. female here for follow-up. HPI PMHx: paroxysmal a.fib, HTN, hypothyroidism She states she has been doing well. She will be undergoing left shoulder surgery with Dr. Keen on 08/04/2022. Patient doing well, denies any complaints. Denies any a.fib sx's recently including no CP, dyspnea, palpitations, dizziness/LH. She states she would get symptomatic any time she would go into a.fib, no recent issues. States she could walk 2 blocks or a flight of stairs without CP or SOB. Patient Active Problem List Diagnosis Hypertensive disorder Paroxysmal atrial fibrillation (CMS/HCC) Past Medical History: Diagnosis Date Arrhythmia Atrial fibrillation (CMS/HCC) Hypertension Family History Problem Relation Name Age of Onset Hypertension Mother Heart attack Father Social History Tobacco Use Smoking status: Former Types: Cigarettes Smokeless tobacco: Never Substance Use Topics Alcohol use: Yes Allergies Allergen Reactions Meperidine Hives (Demerol) ROS Review of Systems Musculoskeletal: Positive for arthritis and joint pain. All other systems reviewed and are negative. OBJECTIVE Visit Vitals BP (!) 170/99 (BP Location: Right arm, Patient Position: Sitting) Pulse 80 Ht 1.549 m (5' 1 ) Wt 103 kg (226 lb) SpO2 95% BMI 42.70 kg/m??? Smoking Status Former BSA 2.11 m??? Medications: Current Outpatient Medications: amLODIPine (Norvasc) 10 mg tablet, Take 1 tablet by mouth in the morning., Disp: , Rfl: dilTIAZem ER (Tiazac) 240 mg 24 hr capsule, Take 1 capsule by mouth in the morning., Disp: , Rfl: hydroCHLOROthiazide (HYDRODiuril) 25 mg tablet, Take 1 tablet by mouth in the morning., Disp: , Rfl: PARoxetine (Paxil) 20 mg tablet, Take 1 tablet by mouth in the morning., Disp: , Rfl: aspirin 325 mg tablet, Take 1 tablet (325 mg) by mouth in the morning., Disp: 90 tablet, Rfl: 3 levothyroxine (Synthroid, Levoxyl) 75 mcg tablet, Take 1 tablet by mouth in the morning., Disp: , Rfl: losartan (Cozaar) 100 mg tablet, Take 1 tablet (100 mg) by mouth in the morning., Disp: 90 tablet, Rfl: 3 Physical Exam Vitals reviewed. Constitutional: Appearance: Normal appearance. She is obese. HENT: Head: Normocephalic and atraumatic. Right Ear: External ear normal. Left Ear: External ear normal. Eyes: Extraocular Movements: Extraocular movements intact. Conjunctiva/sclera: Conjunctivae normal. Pupils: Pupils are equal, round, and reactive to light. Neck: Vascular: No carotid bruit. Comments: No JVD Cardiovascular: Rate and Rhythm: Normal rate and regular rhythm. Pulses: Normal pulses. Heart sounds: Normal heart sounds. Pulmonary: Effort: Pulmonary effort is normal. Breath sounds: Normal breath sounds. Abdominal: General: Bowel sounds are normal. Palpations: Abdomen is soft. Musculoskeletal: Cervical back: Neck supple. Right lower leg: No edema. Left lower leg: No edema. Skin: General: Skin is warm and dry. Neurological: General: No focal deficit present. Mental Status: She is alert and oriented to person, place, and time. Psychiatric: Mood and Affect: Mood normal. Behavior: Behavior normal. Thought Content: Thought content normal. Judgment: Judgment normal. Labs/Testing/Procedures: Chest CTA 03/01/2021 ECHO (10/26/2019) No results found for any previous visit. No results found for: EXTCMP, BMPR1A, CBCDIF, BNP, BNP, LASAP, RED ASSESSMENT/PLAN: Diagnosis Plan 1. Paroxysmal atrial fibrillation (CMS/HCC) aspirin 325 mg tablet CBC Comprehensive metabolic panel Lipid panel 2. Pre-op evaluation ECG 12 lead 3. Benign hypertensive heart disease without congestive heart failure losartan (Cozaar) 100 mg tablet CBC Comprehensive metabolic panel Lipid panel #Cardiac risk stratification -RCRI: 0 points, Class I Risk, 3.9 %, 30-day risk of , AL, or cardiac arrest -EKG today 07/28/2022 shows sinus rhythm, no changes from previous EKGs -She reports METS >4. -ECHO 2019: preserved LVEF, no significant valvular dysfunction -She has no s/s of heart failure on exam -Patient is at low risk for cardiovascular event. No objections for surgery from cardiology standpoint. -Please keep hemodynamically stable and avoid major blood loss. -May hold ASA 5 days prior to procedure. #Paroxysmal atrial fibrillation -RRR on exam -Denies any recent sx's -Continue cardizem 240mg daily -[id number] = 2 (HTN, female) - discussed stroke risk is ~3% per year. Discussed antithrombotic therapy. She is agreeable to ASA 325mg daily, Rx sent. #Hypertensive disorder -Elevated -She has been out of her losartan 100mg daily, will resume, refill sent. -Continue amlodipine 10mg daily and diltiazem 240mg daily. -Routine follow-up labs ordered Follow up in about (more content not included)... [facility] 07-24-2022 Note Patient here for 6 m o follow up PAF and hypertension. Needs cleared for shoulder replacement, scheduled Aug 04, 2022. Denies chest pain and SOB. Doing well cardiac helms. She has been out of losartan for a few weeks. Review of Systems Musculoskeletal: Positive for arthritis and joint pain. All other systems reviewed and are negative. [facility] 01-16-2022 Note CONSULTATION CONSULTATION DATE: 01/16/2022 HISTORY OF PRESENT ILLNESS: This is a 56-year-old female returned to the clinic for a three month follow up for her chronic back, neck and shoulder pain. She was last seen in September of 2021 and, at a prior appointment, she was referred to Dr. Keen for her shoulder and elbow pain. He is following her in regards to those joints and did a left shoulder injection early July of 2021 which was helpful. 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 She states she has trouble raising her arms to drive. Patient currently is not open to any procedures due to financial means. She has had lumbar RFAs in the past which were completed in early 2020. Current medications include baclofen 10 mg q.h.s., BuSpar, Anchor 7.5/325 q.h.s., Paxil and trazodone. She does take an occasional Motrin in the morning to help with inflammatory pain. Patient denies any radicular pain to bilateral upper extremities. Patient's REVIEW OF SYSTEMS / PAST MEDICAL HISTORY / ALLERGIES and IMAGES have been reviewed and they are noted on the chart. PHYSICAL EXAM: VITALS: Blood pressure is 136/82. Heart rate is 90. Temperature is 97.8. She is 155 cm tall and weighs 103 kg. GENERAL APPEARANCE: Appropriate, no acute distress. FOCUSED EXAM - NECK: Trachea is midline. Range of motion is guarded in lateral rotation and flexion/extension. Flexion reproduces the pain pattern. Reproduction of patient's spinal axial pain noted to direct compression along the posterior elements of the cervical facets of C4, C5 and C6, C7 bilaterally. Muscles are non-spasmodic to the trapezius bilaterally. MUSCULOSKELETAL: Vasomotor decreased in bilateral upper extremities, 3/5. Difficulty with bilateral shoulder adduction and abduction. Gross motor is intact. Patient able to do bilateral hand grasp. NEUROLOGICAL: Negative polyneuropathy. +1 bilateral brachioradialis. IMPRESSION: Cervicalgia, cervical degenerative disc, cervical spondylosis and muscle atrophy. PLAN: We will obtain a film of her C-spine with flexion and extension views for baseline evaluation. Patient was placed on diclofenac 75 mg b.i.d. Patient was instructed to stop taking the Motrin. A U-Tox in the office was done today as well. We will maintain her Anchor 7.5/325 daily only. Bilateral medial branch blocks with subsequent rhizotomy were suggested to the patient, but due to cost, she defers at this time. We will continue to medically manage her. We will see her in three months' time unless otherwise indicated. [facility] Signed and Approved by: FILIPPO CHOWDARY . 01/23/2022 16:01:00 [facility] 10-17-2021 Note CONSULTATION PAIN MANAGEMENT CONSULTATION This is a 56-year-old female who returns to the clinic for a 2-month follow-up for chronic left shoulder and right elbow pain. She was last seen on 07/25/2021 which at that time her Anchor was increased to 7.5/325 q. day. She was encouraged to use her diclofenac gel to her shoulder and elbow. She has been following up with Dr. Keen who states her right elbow is bursitic and in the past has had a left shoulder injection. She reports that she is on hold for seeing Dr. Keen at this time as she is trying to catch up on her finances. She does not report any new pain pattern or upper or lower extremity motor weakness. Today she does report her pain is 10 out of 10 and describes it as sharp, achy and pinched. All activities reported aggravate her pain and the patient states nothing decreases her symptoms. Medications include ibuprofen 800 mg b.i.d., Baclofen 10 mg q.h.s., Anchor 7.5/325 q. day in addition to Paxil, Trazadone and Buspar. The patient states she does drink every night and gets her buzz on . The patient is requiring about an increase in her Anchor today as she feels she needs better pain relief to work her job. 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 REVIEW OF SYSTEMS, PAST MEDICAL HISTORY, ALLERGIES AND IMAGES: Have been reviewed and noted in the chart. PHYSICAL EXAM: VITAL SIGNS: Blood pressure 150/87, heart rate is 92, temperature is 97.8. Height is 155 cm, weighs 102.3 kg. GENERAL APPEARANCE: Alert, appropriate and in no acute distress. FOCUSED EXAM: Left shoulder with decreased range of motion secondary to pain, positive crepitus. Decrease in adduction and abduction. Right elbow with edema to the lateral aspect, range of motion is within functional limits. NEUROLOGICAL: The patient is cognitively intact. Negative polyneuropathy. MUSCULOSKELETAL: Motor is intact, 4 out of 5 bilaterally, slight weakness to the upper left extremity secondary to her shoulder pathology. DIAGNOSIS: Left shoulder osteoarthritis, right elbow bursitis. PLAN: Her Anchor will not be increased. A refill for Anchor 7.5/325 sent today. The patient was encouraged to continue her ibuprofen as well as her Voltaren gel. Will continue to follow her in three months' time unless otherwise indicated. She was encouraged to follow-up with Dr. Carrion when she is financially comfortable to do so. The patient understanding and all questions were answered. [facility] Signed and Approved by: FILIPPO CHOWDARY . 10/30/2021 08:25:00 [facility] 07-25-2021 Note PAIN MANAGEMENT DATE: 07-25-21 This is a pleasant 55-year-old female who returns to the clinic for a three-month follow-up. She is complaining of chronic left shoulder pain and right elbow pain. Her last visit was on 04/25/2021 and at that time was a follow-up for bilateral lower lumbar RFAs which have afforded her 100% relief and is ongoing. She is able to work without pain and walks her dogs in the neighborhood daily as wanted. During the last appointment I sent an Ortho consult to Dr. Keen for consult for her left shoulder. She has since followed up with that, saw Dr. Keen 3 weeks ago which he gave a left shoulder injection. He found her shoulder to be bone on bone. He is following up on that aspect, as well as her right elbow. Her right elbow is painful with movement and she lifts heavy equipment in boxes at work. Activity that aggravates her pain are housework, lifting, bending, pushing and pulling. Sitting mitigates the pain. Current medications include Baclofen 10 mg q.h.s, Anchor 5/325 q. day which the patient states she has been out for over one month. She was unsure how the refill process went and stated a colleague at work filled a bottle out of her purse. She is also on BuSpar, Paxil and Trazodone. REVIEW OF SYSTEMS, PAST MEDICAL HISTORY, ALLERGIES AND IMAGES: Have been reviewed and noted in the chart. PHYSICAL EXAM: VITAL SIGNS: Blood pressure 151/89, heart rate is 83, temperature is 98. Height is 155 cm, weighs 99kg. CHEST: Expansion is symmetrical; no audible wheezing. HEART: No orthostatic deviation is noted, no JVD. ABDOMEN: Obese, soft, nondistended. BACK: No spinal axial pain is noted to posterior palpation, range of motion is within normal limits functional limits. UPPER EXTREMITIES: Left shoulder and right elbow are limited in range of motion secondary to pain. Left shoulder: The patient is able to adduct and abduct to level of her shoulder. Right elbow with epicondyle bursa inflammation and tenderness to palpation. Edema noted. LOWER EXTREMITIES: Slight dependent edema noted; negative sclerosis. Motor is intact 4 out of 5 bilaterally. NEUROLOGICAL: Radicular sensory is intact. The patient is cognitively intact. DIAGNOSIS: Right elbow pain, left shoulder pain, lumbar spondylosis and chronic lower back pain. PLAN: I will prescribe Diclofenac 3% topical gel to be placed on her right elbow and her left shoulder as needed. The patient states she is having difficulty sleeping at night and due to her increased pain, is requesting a possible increase in her Anchor. I will increase her to 7.5/325 q.d., only if she to supplement that with [id number] ibuprofen or Aleve. At this time we will follow with the patient in the clinic in three months' time unless otherwise indicated. The patient agrees to the plan of care and all questions were answered today. [facility] Signed and Approved by: FILIPPO CHOWDARY . 08/01/2021 16:09:00 [facility] 04-25-2021 Note PAIN MANAGEMENT Consultation Date: 04-25-21 CHIEF COMPLAINT: 1. Right shoulder pain. 2. Lower back pain. HISTORY OF PRESENT ILLNESS: This is a very pleasant 55 year-old female who presents to the clinic status post bilateral RFA of L2, L3 and L4, L5 last done on 03-26-21. The patient states she has received 100% relief and she is extremely pleased with the results. She's been able to increase her activities including taking the dogs out for walks and increase in her physical activities. 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 Today she has left shoulder pain which is a 3/10 and the pain increases with pushing, pulling, turning, steering and rotational movements. She had an x-ray of the left shoulder 2 1/2 years ago which showed no overt pathology. She has recently seen her PCP, Dr. Hancock, which he prescribed her 800 mg ibuprofen daily for left shoulder pain control. MEDICATIONS: Currently she takes norco5/325 mg daily, trazadone 100 mg q.h.s., and baclofen 10 mg q.h.s. She complains that she is unable to lift her arm in a forward or lateral motion above the level of her shoulder and at that time she hears cracks and scarps. REVIEW OF SYSTEMS / PAST MEDICAL HISTORY / ALLERGIES / PRIOR IMAGES and MEDICATIONS: Noted in the chart and reviewed. PHYSICAL EXAM: VITALS:Blood pressure 174/97, heart rate 83, temperature 97.5, height 5'1 , weight 96.4 kg. GENERAL:No acute distress. HEAD:Atraumatic, normocephalic. Facial symmetry is maintained. NECK:No overt lesion, trachea is midline. HEART:No orthostatic deviation is noted. Perfusion is intact. No JVD. LUNGS:Chest is with normal expansion. Unlabored breathing, no audible wheezing. ABDOMEN:Soft, nondistended. Positive bowel sounds, obese. BACK:Observational range of motion is within functional limits, no reproduction of the patient's original pain symptomatology noted. Slight paravertebral muscle tightening. EXTREMITIES:Lower extremities are negative for pedal edema or sclerosis. Upper extremities left upper arm decrease in forward and lateral movement, crepitus noted. Biceps C5 brachioradialis, C6 and triceps C7 reflexes are intact. NEUROLOGICALLY:No hypoesthesia noted. Sensory is intact bilaterally, upper and lower extremities. PSYCHIATRICALLY:The patient is cooperative, alert, and oriented x3 with appropriate affect. DIAGNOSIS: 1. Left shoulder pain. 2. Lumbar spondylosis. PLAN: 1. Education was given and nutritional importance was stressed along with maintaining proper vitamin regimen. 2. The patient was instructed to start on a vitamin with the addition of 90-400 mg daily. 3. I reviewed her left shoulder x-ray from 2018 and reviewed it with the patient. That film shows no overt pathology. 4. We will maintain the patient on Anchor and refill today 5/325 mg daily. 5. We will also maintain the baclofen 10 mg q.h.s. which I will refill today. 6. An orthopedic consult with be sent to Dr. Keen's office regarding the patient's left shoulder pain. Dr. Keen's office will call the patient to schedule and appointment. The patient is in agreement with the consult as well as the plan of care. 7. She will return to our office in three months unless otherwise indicated. [facility] Signed and Approved by: FILIPPO CHOWDARY . 05/01/2021 07:55:00 [facility] 02-04-2021 Note PAIN MANAGEMENT CONS ULTATION Consultation Date: 02/04/2021 HISTORY OF PRESENT ILLNESS: This is a very pleasant 55-year-old female patient who comes to the Pain Clinic in regards to low back pain. She rates the low back pain as 2/10, which was a constant ache sensation. Activities that increase the pain are twisting, pulling, standing, walking, morning time, evening time, doing the dishes, stairs and increased activities. Activities that decrease the pain are sitting for short periods of time, lying down, Advil, Baclofen injection therapy, Anchor and Trazodone. On January 22 the patient had a #2 bilateral medial branch block at the level of L2, L3 and L4, L5 for which this initially afforded 80-90% relief of her pain and symptoms for two days, not states overall 80% better since prior to starting injection therapy. She denied any complications after the #2 medial branch block as well as any loss of bowel or bladder, injuries or falls. She is interested in proceeding with the radiofrequency ablation today in the office. MEDICATIONS: Baclofen 10 mg one p.o., q.h.s., Anchor 5/325 one p.o. daily p.r.n. Paxil daily, Trazodone 100 mg at h.s., Losartan 100 mg daily, amlodipine 10 mg daily, Buspar 7.5 mg b.i.d., Hydroxyzine 25 mg 4 times a day, hydrochlorothiazide 25 mg daily, Levothyroxine 75 mcg daily, vitamin C daily. PHYSICAL EXAMINATION: VITAL SIGNS: Blood pressure 156/89, heart rate 91, respirations 20, temperature 99.5. Patient is 5 feet and 3 inches and 98.6 kg. HEENT: Head is atraumatic, normocephalic, facial symmetry is maintained. NECK: Supple without any lesions. Trachea is midline. HEART: Regular rate with no JVD noted. LUNGS: Normal expansion, with unlabored breathing, no audible wheezing noted. ABDOMEN: Soft and nondistended. BACK: Range of motion is guarded for flexion, extension and rotation. Tenderness is noted along the extensor, compression and direct palpation along the lumbar facets. There is positive axial loading in the left and right lumbar facets. Point tenderness is noted to the left and right lumbar and does not radiate. There are no paresthesias, no paravertebral spasms noted. There are no paresthesias or paravertebral spasms noted. EXTREMITIES: No pedal or ankle edema is noted bilateral lower extremities. The patient ambulates unassisted. The patient ambulates with an antalgic gait is steady. MUSCULOSKELETAL: Intact with no motor weakness to bilateral upper and lower extremities. Muscle strength is 5/5 bilateral upper and lower extremities. NEUROLOGICAL: The patient is neurologically intact to the bilateral lower extremities. Patella reflexes are 2/2 and Achilles 2/2 present bilaterally to the lower extremities. Cranial nerves are intact. PSYCHIATRIC: The patient is cooperative, alert and oriented x3, and appropriate for mood and affect. DIAGNOSIS: Low back pain, lumbar spondylosis, chronic pain syndrome, obesity, lumbar spasm. PLAN: A refill of Baclofen 10 mg one p.o. at h.s. for myofascial pain was prescribed today in the office. A refill of Anchor 5/327 one p.o. daily p.r.n. pain was prescribed today and given to the patient via paper prescription for both Baclofen and Anchor. The patient has been advised of the risks and benefits of the medications. OARRs was reviewed and no drug seeking behavior was noted. Medication effectiveness and evaluation of possible addiction were assessed on a regular basis by this provider. Urine drug screen was reviewed after her last office and is appropriate. We will schedule the patient for radiofrequency ablation to the right and left L2, L3 and L4, L5. The patient will return to the Pain Clinic one month after both radiofrequency ablations are completed to re-evaluate her pain. . [facility] Signed and Approved by: NIKKI BAILEY 02/11/2021 07:21:00 [facility] Evaluation note Diagnosis Preop examination- Primary Unspecified pre-operative examination Hypertension, unspecified type Atrial fibrillation, unspecified type (CMS-HCC) BMI 40.0-44.9, adult (CMS-HCC) Preop examination Unspecified pre-operative examination Hypertension, unspecified type Atrial fibrillation, unspecified type (CMS-HCC) BMI 40.0-44.9, adult (CMS-HCC) [facility] Diagnosis Essential hypertension, benign (CMS/HCC)- Primary Essential hypertension, benign documented in this encounter [facility]* Diagnosis Primary localized osteoarthritis of left hip- Primary Primary localized osteoarthritis of left hip [facility] Diagnosis Encounter for preoperative assessment- Primary Primary osteoarthritis of left hip Essential hypertension, benign (CMS/HCC) Essential hypertension, benign MDD (major depressive disorder), recurrent episode, mild (HCC) (CMS/HCC) Generalized anxiety disorder (CMS/HCC) Generalized anxiety disorder Morbid obesity due to excess calories (CMS/HCC) Essential hypertension, benign (CMS/HCC)- Primary Essential hypertension, benign Major depressive disorder, recurrent episode, moderate degree (CMS/HCC) Major depressive disorder, recurrent episode, moderate Generalized anxiety disorder (CMS/HCC) Generalized anxiety disorder Primary osteoarthritis of left hip Bleeding hemorrhoids Unspecified hemorrhoids with other complication Class 3 severe obesity due to excess calories with serious comorbidity and body mass index (BMI) of 45.0 to 49.9 in adult (CMS/HCC) Prediabetes Other abnormal glucose Primary hypothyroidism (CMS/HCC) Unspecified hypothyroidism Encounter for long-term (current) use of medications Encounter for long-term (current) use of other medications Dyslipidemia (CMS/HCC) Other and unspecified hyperlipidemia Morbid obesity due to excess calories (CMS/HCC) documented in this encounter [facility]* Diagnosis Encounter for preoperative assessment- Primary Primary osteoarthritis of left hip Essential hypertension, benign (CMS/HCC) Essential hypertension, benign MDD (major depressive disorder), recurrent episode, mild (HCC) (CMS/HCC) Generalized anxiety disorder (CMS/HCC) Generalized anxiety disorder Morbid obesity due to excess calories (CMS/HCC) Essential hypertension, benign (CMS/HCC)- Primary Essential hypertension, benign Major depressive disorder, recurrent episode, moderate degree (CMS/HCC) Major depressive disorder, recurrent episode, moderate Generalized anxiety disorder (CMS/HCC) Generalized anxiety disorder Primary osteoarthritis of left hip Bleeding hemorrhoids Unspecified hemorrhoids with other complication Class 3 severe obesity due to excess calories with serious comorbidity and body mass index (BMI) of 45.0 to 49.9 in adult (CMS/HCC) Prediabetes Other abnormal glucose Primary hypothyroidism (CMS/HCC) Unspecified hypothyroidism Encounter for long-term (current) use of medications Encounter for long-term (current) use of other medications Dyslipidemia (CMS/HCC) Other and unspecified hyperlipidemia Morbid obesity due to excess calories (CMS/HCC) Adult hypothyroidism (CMS/HCC)- Primary Unspecified hypothyroidism documented in this encounter [facility]* Diagnosis Encounter for preoperative assessment- Primary Primary osteoarthritis of left hip Essential hypertension, benign (CMS/HCC) Essential hypertension, benign MDD (major depressive disorder), recurrent episode, mild (HCC) (CMS/HCC) Generalized anxiety disorder (CMS/HCC) Generalized anxiety disorder Morbid obesity due to excess calories (CMS/HCC) Essential hypertension, benign (CMS/HCC)- Primary Essential hypertension, benign Major depressive disorder, recurrent episode, moderate degree (CMS/HCC) Major depressive disorder, recurrent episode, moderate Generalized anxiety disorder (CMS/HCC) Generalized anxiety disorder Primary osteoarthritis of left hip Bleeding hemorrhoids Unspecified hemorrhoids with other complication Class 3 severe obesity due to excess calories with serious comorbidity and body mass index (BMI) of 45.0 to 49.9 in adult (CMS/HCC) Prediabetes Other abnormal glucose Primary hypothyroidism (CMS/HCC) Unspecified hypothyroidism Encounter for long-term (current) use of medications Encounter for long-term (current) use of other medications Dyslipidemia (CMS/HCC) Other and unspecified hyperlipidemia Morbid obesity due to excess calories (CMS/HCC) Edema of both legs- Primary Edema documented in this encounter [facility] Discharge instructionsNot on [facility]ocumented [facility] Purpose Family History No Family History Records FoundNo Family History Records FoundNo Family History Records FoundNo Family History Records FoundNo Family History Records FoundNo Family History Records Found Advance Directives Latest Code Status on File Code Status Date Activated Date Inactivated Comments Full Code 10/15/2023 7:18 AM Additional Source Comments INFORMATION SOURCE (unrecogn ized section and content) DATE CREATED AUTHOR 01/24/2022 [facility] DATE CREATED AUTHOR AUTHOR'S ORGANIZ ATION 02/24/2023 [facility] DATE CREATED AUTHOR AUTHOR'S ORGANIZ ATION 11/25/2023 [facility] DATE CREATED AUTHOR AUTHOR'S ORGANIZ ATION 04/30/2024 [facility] DATE CREATED AUTHOR AUTHOR'S ORGANIZ ATION 06/23/2024 [facility] EPIC DATE CREATED AUTHOR AUTHOR'S ORGANIZ ATION 07/02/2024 [facility] Care Teams (unrecognized sec tion and content) Party Plan 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 Relationship Specialty Start Date End Date Sam Hancock MD [address] [place] [address] PCP - General Family Medicine 12/22/22 Party Plan 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 Relationship Specialty Start Date End Date Sam Hancock MD [address] [place] [phone] PCP - General Family Medicine 09/14/23 Party Plan 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 Relationship Specialty Start Date End Date Sam Hancock MD [address] [place] [address] PCP - General Family Medicine 12/22/22 Party Plan 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 Relationship Specialty Start Date End Date Sam Hancock MD [address] [place] [phone] PCP - General Family Medicine 09/14/23 Party Plan 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 Relationship Specialty Start Date End Date Sam Hancock MD [address] [place] [phone] PCP - General Family Medicine 09/14/23 Party Plan 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 Relationship Specialty Start Date End Date Sam Hancock MD [address] [place] [phone] PCP - General Family Medicine 09/14/23 Party Plan 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 Relationship Specialty Start Date End Date Sam Hancock MD [address] [place] [phone] PCP - General Family Medicine 09/14/23 Party Plan 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 Relationship Specialty Start Date End Date Sam Hancock MD [address] [place] [phone] PCP - General Family Medicine 09/14/23 Reason for Visit (unrecogniz ed section and content) Reason Comments Med Refill Specialty Diagnoses / Procedures Referred By Michelle drew Referred To Contact Diagnoses Degenerative joint disease of left hip left hip degenerative joint disease Procedures ME TOTAL HIP ARTHROPLASTY REPLACEMENT TOTAL JOINT HIP Ever Keen, DO [address] Jacob [address] [place] [address], [place] [address] Referral ID Status Reason Start Date Expiration Date Visits Re quested Visits Authorized [id number] 1 1 Reason Comments Follow-up Talk about med/ heal th Scheduled Active and Recently Administ ered Medications (unrecognized section and content) Medication Order 10/15/2023 10/16/2023 10/17/2023 acetaminophen (TYLENOL EXTRA STRENGTH) tablet 1,000 mg 1,000 mg, oral, Every 6 hours scheduled, First dose on Tressa 10/15/23 at 1445, Start 6 hours after the pre-op dose. 1500 (Given - Provider: Valerie Garcia RN)2107 (Given - Provider: Katrin Montalvo RN) 0321 (Given - Provider: Katrin Montalvo RN)0747 (Given - Provider: Katie Molina, ADRIENNE)0900 (Canceled Entry - Provider: Katie Molina RN)1421 (Given - Provider: Nikki Tate RN)2039 (Given - Provider: Dorene Vásquez RN) 0243 (Given - Provider: Dorene Vásquez RN)0852 (Given - Provider: Andree Gillsepie RN)1500 (Due - Provider: Rema Murcia [facility])2100 (Due - Provider: Rema Murcia [facility]) acetaminophen (TYLENOL) tablet 650 mg (COMPLETED) 650 mg, oral, Once, On Tressa 10/15/23 at 0915, For 1 dose, Pre-op 0928 (Given - Provider: Terri Kidd RN) amLODIPine (NORVASC) tablet 10 mg 10 mg, oral, Daily, First dose on Thu10/16/23 at 0900, Look-alike/sound-alike medication - verify indication for use. Avoid grapefruit juice. 0748 (Given - Provider: Katie Molina RN)0900 (Canceled Entry - Provider: Katie Molina RN) 0852 (Given - Provider: Andree Gillespie RN) aspirin EC tablet 325 mg 325 mg, oral, Daily, First dose on Thu10/16/23 at 0900, Start Day of Surgery. In order to meet SCIP measures, VTE prophylaxis must be started within 24 hours of the end of the surgical procedure Do not crush or chew. 0748 (Given - Provider: Katie Molina RN)0900 (Canceled Entry - Provider: Katie Molina RN) 0852 (Given - Provider: Andree Gillespie RN) busPIRone (BUSPAR) tablet 5 mg 5 mg, oral, 2 times daily, First dose on Tressa 10/15/23 at 2100, Look-alike/sound-alike medication - verify indication for use. Avoid grapefruit juice. 2107 (Given - Provider: Katrin Montalvo RN) 075 (Given - Provider: Katie Molina, RN)0900 (Canceled Entry - Provider: Katie Molina, ADRIENNE)203 (Given - Provider: Dorene Vásquez RN) 0853 (Given - Provider: Andree Gillespie, ADRIENNE)2100 (Due) ceFAZolin (ANCEF) IVPB 1000 mg/50 mL in iso-osmotic dextrose (20 mg/mL premix) (COMPLETED) 1,000 mg, intravenous, at 100 mL/hr, Administer over 30 Minutes, Once, On Tressa 10/15/23 at 0915, For 1 dose, Pre-op, Look-alike/sound-alike medication - verify indication for use., Indication: Surgical prophylaxis 1046 (Given - Provider: Suzette Pollock, SMOKING TOBACCO PACKING MACHINE HAND-MILLWRIGHT HELPER)1101 (Stop Bag - Provider: Suzette Pollock APRN-MILLWRIGHT HELPER) ceFAZolin (ANCEF) IVPB 2000 mg/50 mL in iso-osmotic dextrose (40 mg/mL premix) (COMPLETED) 2,000 mg, intravenous, at 100 mL/hr, Administer over 30 Minutes, Every 8 hours, First dose on Tressa 10/15/23 at 2000, For 2 doses, Pharmacy to adjust per renal function; Start 8 hours after pre-op dose for total of 3 doses including pre-op dose. Infuse all doses within 24 hours of initial dose. For patient less than 120 kg. Look-alike/sound-alike medication - verify indication for use., Indication: Surgical prophylaxis 1954 (New Bag - Provider: Katrin Montalvo RN)2024 (Stop Bag - Provider: Katrin Montalvo RN) 321 (New Bag - Provider: Katrin Montalvo RN)035 (Stop Bag - Provider: Katrin Montalvo RN) ceFAZolin (ANCEF) IVPB 2000 mg/50 mL in iso-osmotic dextrose (40 mg/mL premix) (COMPLETED) 2,000 mg, intravenous, at 100 mL/hr, Administer over 30 Minutes, Once, On Tressa 10/15/23 at 0915, For 1 dose, Pre-op, Look-alike/sound-alike medication - verify indication for use., Indication: Surgical prophylaxis 1101 (Given - Provider: Suzette Pollock APRN-MILLWRIGHT HELPER)1131 (Stop Bag - Provider: Suzette Pollock APRN-CARMEN) celecoxib (CeleBREX) capsule 200 mg (COMPLETED) 200 mg, oral, Once, On Tressa 10/15/23 at 0915, For 1 dose, Pre-op, Look-alike/sound-alike medication - verify indication for use. 0928 (Given - Provider: Terri Kidd RN) ferrous sulfate tablet 325 mg 325 mg, oral, 2 times daily with meals, First dose on Tressa 10/15/23 at 1700, Give ferrous sulfate 2 hours before or 4 hours after antacids. 1639 (Given - Provider: Valerie Garcia RN) 0749 (Given - Provider: Katie Molina RN)1549 (Given - Provider: Nikki Tate RN) 0852 (Given - Provider: Andree Gillespie RN)1700 (Due) hydroCHLOROthiazide (HYDRODIURIL) tablet 25 mg 25 mg, oral, Daily, First dose on Thu10/16/23 at 0900, Look-alike/sound-alike medication - verify indication for use. 0755 (Given - Provider: Katie Molina RN)0900 (Canceled Entry - Provider: Katie Molina RN) 0853 (Given - Provider: Andree Gillespie RN) losartan (COZAAR) tablet 100 mg 100 mg, oral, Daily, First dose on Thu10/16/23 at 0900, Look-alike/sound-alike medication - verify indication for use. 0755 (Given - Provider: Katie Molina RN)0900 (Canceled Entry - Provider: Katie Molina RN) 0854 (Given - Provider: Andree Gillespie RN) PARoxetine (PAXIL) tablet 30 mg 30 mg, oral, Daily, First dose on Thu10/16/23 at 0900, Look-alike/sound-alike medication - verify indication for use. 0757 (Given - Provider: Katie Molina RN)0900 (Canceled Entry - Provider: Katie Molina RN) 0853 (Given - Provider: Andree Gillespie, ADRIENNE) phentermine (ADIPEX-P) tablet 37.5 mg 37.5 mg, oral, Every morning before breakfast, First dose on Tressa 10/15/23 at 1445, Look-alike/sound-alike medication - verify indication for use. 1445 (Not Given - Provider: Valerie Garcia RN - Reason: Medication not available) 0600 (Not Given - Provider: Katrin Montalvo RN - Reason: Medication not available) 0700 (Not Given - Provider: Andree Gillespie, ADRIENNE - Reason: Medication not available) sennosides-docusate sodium (SENOKOT-S) 8.6-50 mg 1 tablet 1 tablet, oral, 2 times daily, First dose on Thu10/16/23 at 0900, Start Post-Op Day 1: Hold for diarrhea 0749 (Given - Provider: Katie Molina RN)0900 (Canceled Entry - Provider: Katie Molina RN)2038 (Given - Provider: Dorene Vásquez RN) 0852 (Not Given - Provider: Andree Gillespie, ADRIENNE - Reason: Patient/family refused)2100 (Due) tranexamic acid (LYSTEDA) tablet 1,950 mg (COMPLETED) 1,950 mg, oral, Once, On Tressa 10/15/23 at 0915, For 1 dose, Pre-op 0928 (Given - Provider: Terri Kidd RN) Continuous Medication Order 10/15/2023 10/16/2023 10/17/2023 lactated ringers infusion (CANCELED) 100 mL/hr, intravenous, Continuous, Starting on Tressa 10/15/23 at 0915, Pre-op, If fluid restriction is not indicated, infuse at a rate up to 5 mL/kg/hr not to exceed the total replacement volume (2 ml/kg/hr) from the time NPO status was initiated. 0923 (New Bag - Provider: Terri Kidd RN)1106 (Continued by Anesthesia - Provider: ANNE-MARIE BaMILLWRIGHT HELPER)1132 (Paused - Provider: Ron Pollock, SMOKING TOBACCO PACKING MACHINE HAND-MILLWRIGHT HELPER - Comment: Switch to gravity)1133 (Restarted - Provider: Suzette Pollock, MICHELLE-MILLWRIGHT HELPER)1221 (Anesthesia Volume Adjustment - Provider: Suzette Pollock APRN-MILLWRIGHT HELPER)1247 (Anesthesia Volume Adjustment - Provider: Suzette Pollock APRN-MILLWRIGHT HELPER)1420 (Stop Bag - Provider: Eunice Stewart, ADRIENNE) lactated ringers infusion 125 mL/hr, intravenous, Continuous, Starting on Tressa 10/15/23 at 1445 1504 (New Bag - Provider: Valerie Garcia, ADRIENNE) 0809 (New Bag - Provider: Katie Molina, RN)1619 (New Bag - Provider: Deepali Machuca, ADRIENNE)2325 (New Bag - Provider: Dorene Vásquez, ADRIENNE) PRN Medication Order 10/15/2023 10/16/2023 10/17/2023 bisacodyL (DULCOLAX) suppository 10 mg 10 mg, rectal, As needed, constipation, if no BM within 6 hours of administering Milk of Magnesia, Starting on 10/17/23 at 0000, Start Post-Op Day 2 Look-alike/sound-alike medication - verify indication for use. hydrOXYzine (ATARAX) tablet 10 mg 10 mg, oral, 3 times daily PRN, itching, Starting on Tressa 10/15/23 at 1440, Look-alike/sound-alike medication - verify indication for use. hydrOXYzine (ATARAX) tablet 25 mg 25 mg, oral, 3 times daily PRN, itching, Starting on Tressa 10/15/23 at 1439, Look-alike/sound-alike medication - verify indication for use. 3 (Given - Provider: Katrin Montalvo, ADRIENNE) magnesium hydroxide (MILK OF MAGNESIA) suspension 30 mL 30 mL, oral, 2 times daily PRN, if no BM by post-op day 2, Starting on 10/17/23 at 0000, Start Post-Op Day 2: DO NOT use in Renal/Dialysis patients Shake well. morphine injection 2 mg(Linked Group 1) 2 mg, intravenous, Every 2 hour PRN, pain scale of 7-8, Starting on Tressa 10/15/23 at 1440, For severe pain unresponsive to oral pain medications, breakthrough pain, or patients unable to tolerate oral medications. Look-alike/sound-alike medication - verify indication for use. morphine injection 4 mg(Linked Group 1) 4 mg, intravenous, Every 2 hour PRN, pain scale of 9-10, Starting on Tressa 24 at 1440, For severe pain unresponsive to oral pain medications, breakthrough pain, or patients unable to tolerate oral medications. Look-alike/sound-alike medication - verify indication for use. ondansetron (PF) (ZOFRAN) injection 4 mg 4 mg, intravenous, Every 6 hours PRN, nausea, vomiting, Starting on Tressa 24 at 1440, Administer over 2-5 minutes. oxyCODONE (ROXICODONE) immediate release tablet 10 mg(Linked Group 2) 10 mg, oral, Every 3 hours PRN, severe pain - pain scale 7-10, Starting on Tressa 10/15/23 at 1440, The oral route is preferred for patients tolerating oral intake without nausea and vomiting. IV pain medications should be used if the oral route is ineffective for symptom control or if patient unable to take medications orally. Look-alike/sound-alike medication - verify indication for use. Immediate release. 1501 (Given - Provider: Valerie Garcia RN)1801 (Given - Provider: Valerie Garcia RN)2108 (Given - Provider: Katrin Montalvo RN) 0749 (Given - Provider: Katie Molina RN)2037 (See Alternative - Provider: Dorene Vásquez RN) 0242 (See Alternative - Provider: Dorene Vásquez RN)0852 (See Alternative - Provider: Andree Gillespie RN) oxyCODONE (ROXICODONE) immediate release tablet 5 mg(Linked Group 2) 5 mg, oral, Every 3 hours PRN, moderate pain - pain scale 4-6, Starting on Tressa 10/15/23 at 1440, The oral route is preferred for patients tolerating oral intake without nausea and vomiting. IV pain medications should be used if the oral route is ineffective for symptom control or if patient unable to take medications orally. Look-alike/sound-alike medication - verify indication for use. Immediate release. 1501 (See Alternative - Provider: Valerie Garcia RN)1801 (See Alternative - Provider: Valerie Garcia RN)2107 (See Alternative - Provider: Katrin Montalvo RN) 0749 (See Alternative - Provider: Katie Molina RN)2036 (Given - Provider: Dorene Vásquez RN) 0242 (Given - Provider: Dorene Vásquez, RN)0852 (Given - Provider: Andree Gillespie RN) Linked Groups Order Group 1: morphine injection 2 mgJump to med 2 mg, intravenous, Every 2 hour PRN, pain scale of 7-8, Starting on Tressa 10/15/23 at 1440, For severe pain unresponsive to oral pain medications, breakthrough pain, or patients unable to tolerate oral medications. Look-alike/sound-alike medication - verify indication for use. Or morphine injection 4 mgJump to med 4 mg, intravenous, Every 2 hour PRN, pain scale of 9-10, Starting on Tressa 10/15/23 at 1440, For severe pain unresponsive to oral pain medications, breakthrough pain, or patients unable to tolerate oral medications. Look-alike/sound-alike medication - verify indication for use. Group 2: oxyCODONE (ROXICODONE) immediate release tablet 5 mgJump to med 5 mg, oral, Every 3 hours PRN, moderate pain - pain scale 4-6, Starting on Tressa 10/15/23 at 1440, The oral route is preferred for patients tolerating oral intake without nausea and vomiting. IV pain medications should be used if the oral route is ineffective for symptom control or if patient unable to take medications orally. Look-alike/sound-alike medication - verify indication for use. Immediate release. Or oxyCODONE (ROXICODONE) immediate release tablet 10 mgJump to med 10 mg, oral, Every 3 hours PRN, severe pain - pain scale 7-10, Starting on Tressa 10/15/23 at 1440, The oral route is preferred for patients tolerating oral intake without nausea and vomiting. IV pain medications should be used if the oral route is ineffective for symptom control or if patient unable to take medications orally. Look-alike/sound-alike medication - verify indication for use. Immediate release. FOR RECORDS PERTAINING TO PATIENTS WHO ARE OR HAVE BEEN ENROLLED IN A CHEMICAL DEPENDENCY/SUBSTANCEABUSE PROGRAM, SOME INFORMATION MAY BE OMITTED. This clinical summary was aggregated from multiple sources. Caution should be exercised in using it in the provision of clinical care. This summary normalizes information from multiple sources, and as a consequence, information in this document may materially change the coding, format and clinical context of patient data. In addition, data may be omitted in some cases. CLINICAL DECISIONS SHOULD BE BASED ON THE PRIMARY CLINICAL RECORDS. [facility]. provides no warranty or guarantee of the accuracy or completeness of information in this document.
[2024-07-11 08:26] LABS: Influenza Virus A Antigen Negative; Influenza Virus B Antigen Negative; Internal Control Within Normal Limits; SARS-CoV-2 Ag NEGATIVE (NEGATIVE)
== END 2024-07-11 09:06 | disposition home or self-care (01) ==
PROVIDERS: Emergency Provider Emergency Medicine; PCP Family Medicine
DX: J06.9 Acute upper respiratory infection, unspecified (principal); Z87.891 Personal history of nicotine dependence
CPT/HCPCS: 71045; 87804; 87811; 93005; 94640; 99285

== ENCOUNTER 2024-11-25 08:01 | Emergency (ER) | payer OTHER, SELFPAY ==
[2024-11-25] VITALS (20 sets, daily range): BP systolic 114–128; BP diastolic 57–84; PULSE 73–111; TEMP 37.7; O2SAT 100; BMI 36.3
--- NOTE | 2024-11-25 08:23 | ECG_ITS ---
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 Measurements Intervals [place] Rate: 87 P: 67 NV: 176 QRS: 87 QRSD: 86 T: 90 QT: 406 QTc: 450 Interpretive Statements 1100 Sinus rhythm 4068 Nonspecific Twave abnormality Abnormal ECG Compared to ECG 07/11/2024 07:53:06 No significant changes Electronically Signed On 11-25-2024 15:14:53 EDT by IGNACIO PHAM M.D.
--- NOTE | 2024-11-25 08:33 | ED.GENADUL1 ---
HPI HPI - General Adult General Chief complaint: Vaginal Bleeding Stated complaint: VAGINAL BLEEDING Time Seen by Provider: 11/25/24 08:27 Source: patient Mode of arrival: ambulance Limitations: no limitations History of Present Illness HPI narrative: Patient is a 59-year-old female who is presenting by EMS with vaginal bleeding this been going on for 2 weeks. Patient's CHIEF EXECUTIVE is Dr. Davidson. Patient had a D&C approxione 0.5 years ago. Patient was given 2 different doses of Zofran by EMS and 1 L of IV fluid. Patient is an alcoholic. Patient states that she is drinking approximately 6 beers a day when she is feeling good, she has given up wide secondary to acid, she has been able to sip on a beer intermittently in the last 2 weeks. Patient has asked Dr. Davidson to remove her uterus, he said that he was not able because she did not have cancer. Patient did have a D&C 1.5 years ago. Patient is admittedly depressed. Patient does take medication for depression. She is not suicidal or homicidal. Patient says that she is waiting to , but she does not want to hurt herself, kill herself, just depressed. Patient lost her job in August 2023. Patient states secondary to an orthopedic surgery where she had her femur severed her femoral artery which she lost a lot of blood at that time and since then she has not been able to work. Patient lives at home by herself. Patient uses a cane or walker to ambulate. Patient is on no control, no hormone therapy. Patient called Dr. Davidson office yesterday. Patient came into the ER today for evaluation. Patient been having intermittent bleeding and clots for the last few weeks. Patient is pleasant, smiles, jokes around. Patient denies any typical falls, trauma to the vaginal or perineal area. All systems are negative except as noted/marked. All systems reviewed and otherwise negative. Nurses note and vital signs reviewed and patient is not hypoxic. General: The patient appears well and in no apparent distress. Patient is resting comfortably on cart. Patient is not toxic, lethargic, or listless Skin: Warm, dry, no pallor noted. There is no rash noted. No petechiae, purpura. Head: Normocephalic, atraumatic Eye: Normal conjunctiva, no drainage, EOMI. PERRL Ears, Nose, Mouth, and Throat: oral mucosa is moist. Nares patent. Mouth without vesicles. Cardiovascular: Regular Rate and Rhythm, no murmur, gallop, rub Respiratory: Patient is in no distress, no accessory muscle use, lungs are clear to auscultation, no wheezing, rales or rhonchi Back: non-tender, no CVA tenderness bilaterally to percussion. No CT LS midline pain GI: Diffuse mild tenderness to palpation, mild suprapubic tenderness to palpation, soft, obese, no peritoneal signs, no flank pain bilateral, no rash, otherwise no tenderness to palpation, no masses appreciated. No rebound, guarding, or rigidity noted. No distention : Patient coughed, and had small amount of blood and clot come out, Mara DELEON was at bedside during the entire external evaluation. Patient has no redness, rash, no concerns for STDs or other lesions or trauma to the vaginal area. Musculoskeletal: Patient has full range of motion of all of the extremities, no motor, sensory, or focal neurological deficits Neurological: A&O x4, normal speech Psychiatric: Cooperative Related Data Home Medications ?Medication ?Instructions ?Recorded ?Confirmed amlodipine 10 mg tablet 10 mg PO DAILY 02/05/23 08/07/23 buspirone 5 mg tablet 5 mg PO DAILY 02/05/23 08/07/23 hydrochlorothiazide 25 mg tablet 25 mg PO DAILY 02/05/23 08/07/23 losartan 100 mg tablet (Cozaar) 100 mg PO DAILY 02/05/23 08/07/23 hydroxyzine HCl 25 mg tablet 25 mg PO BID 08/04/23 08/07/23 paroxetine HCl 30 mg tablet 30 mg PO DAILY 08/04/23 08/07/23 Previous Rx's ?Medication ?Instructions ?Recorded hydrocortisone acetate 25 mg 25 mg [place] BID 2 weeks #28 supp 02/13/23 rectal suppository (Anusol-HC) albuterol sulfate 90 mcg/actuation 2 inh inhalation Q4H PRN shortness 07/11/24 aerosol inhaler of breath or wheezing #8.5 grams azithromycin 250 mg tablet See Rx Instructions PO .COMPLEX #6 07/11/24 (Zithromax Z-Inocencio) tabs benzonatate 100 mg capsule 100 mg PO TID PRN cough #20 caps 07/11/24 medroxyprogesterone 10 mg tablet 10 mg PO DAILY 14 days #14 tabs 11/25/24 (Provera) Allergies Allergy/AdvReac Type Severity Reaction Status Date / Time meperidine (From Demerol) Allergy Hives Verified 08/04/23 13:53 Opioid HPI Opioid Management Most Recent Opioid Data: Last Pain Scale 6 07/11/24 08:15 07/11/24 PFSH PFS Medical History (Updated 11/25/24 @ 11:00 by Onofre Martinez MD) Arthritis ?M19.90 - Unspecified osteoarthritis, unspecified site (ICD-10) Depression ?F32.A - Depression, unspecified (ICD-10) Chronic obstructive pulmonary disease ?J44.9 - Chronic obstructive pulmonary disease, unspecified (ICD-10) Snoring ?R06.83 - Snoring (ICD-10) Post-menopausal bleeding ?N95.0 - Postmenopausal bleeding (ICD-10) Menopause ?Z78.0 - Asymptomatic menopausal state (ICD-10) CKD (chronic kidney disease) ?N18.9 - Chronic kidney disease, unspecified (ICD-10) Anxiety ?F41.9 - Anxiety disorder, unspecified (ICD-10) Atrial fibrillation ?I48.91 - Unspecified atrial fibrillation (ICD-10) High cholesterol ?E78.00 - Pure hypercholesterolemia, unspecified (ICD-10) Hypertension ?I10 - Essential (primary) hypertension (ICD-10) Surgical History (Updated 08/04/23 @ 14:01 by Chary Stewart NP) History of colonoscopy ?Z98.890 - Other specified postprocedural states (ICD-10) S/P epidural steroid injection ?Z92.241 - Personal history of systemic steroid therapy (ICD-10) History of tubal ligation ?Z98.51 - Tubal ligation status (ICD-10) History of bilateral oophorectomy ?Z90.722 - Acquired absence of ovaries, bilateral (ICD-10) History of arthroplasty of left ankle ?Z98.890 - Other specified postprocedural states (ICD-10) History of arthroscopy of knee ?Z98.890 - Other specified postprocedural states (ICD-10) History of total hip arthroplasty ?Z96.649 - Presence of unspecified artificial hip joint (ICD-10) Family History (Updated 02/05/23 @ 12:43 by Chary Stewart NP) Other Family history of hypertension Family history of kidney cancer Family history of stroke Family history of throat cancer Social History (Updated 02/13/23 @ 08:48 by Rand Choi RN) Within the past year, how often did you have a drink containing alcohol: 4 or more times a week Within the past year, how many standard drinks containing alcohol did you have on a typical day: 1 or 2 Total score: 0 Score interpretation: A score less than 3 is consistent with normal alcohol consumption. Smoking status: Former smoker Non-prescribed substance use: denies use Previous occupational history: [employer] Highest level of school completed/degree received: high school graduate Little interest or pleasure in doing things: not at all Feeling down, depressed, or hopeless: not at all Exam Constitutional Vital Signs, click to edit/add: Last Vital Signs Temp 99.8 F 11/25/24 08:03 Pulse 83 11/25/24 08:03 Resp 18 11/25/24 08:03 BP 120/57 11/25/24 08:03 Pulse Ox 100 11/25/24 08:03 O2 Del Method Room Air 11/25/24 08:03 Course Vital Signs Vital signs: Vital Signs Temperature 99.8 F 11/25/24 08:03 Pulse Rate 83 11/25/24 08:03 Respiratory Rate 18 11/25/24 08:03 Blood Pressure 120/57 11/25/24 08:03 Pulse Oximetry 100 11/25/24 08:03 Oxygen Delivery Method Room Air 11/25/24 08:03 Temperature 99.8 F 11/25/24 08:03 Pulse Rate 83 11/25/24 08:03 Respiratory Rate 18 11/25/24 08:03 Blood Pressure 120/57 11/25/24 08:03 Pulse Oximetry 100 11/25/24 08:03 Oxygen Delivery Method Room Air 11/25/24 08:03 Medical Decision Making MDM Narrative Medical decision making narrative: Patient seen and examined: Clinical presentation and history is concerning for phonic DU B Differential diagnosis includes but is not limited to: DU B, abscess, cancer, fibroids, appendicitis, UTI, pyelonephritis Diagnostics and management: Patient will have laboratory studies Relevant laboratory interpretation:patient's hemoglobin hematocrit are 11/35. Patient potassium is 3.0. Glucose 143, calcium 8.3. AST 8 ALT is 81-31. Alk phos 143, CK24. Radiological studies: Please see the formal radiological report. No significant acute abnormalities noted on patient's ultrasound report, this was discussed with Dr. Davidson Reevaluation:1015 examination external was done with Mara DELEON at bedside. Patient has small maroon blood with small grape clot. Shared decision making: I discussed with the patient the necessary laboratory findings and radiological findings. Social barriers to healthcare: There are no food insecurities, there is no issue with transportation, there are no insurance barriers. Disposition: I discussed with the patient [address] Davidson, patient's CHIEF EXECUTIVE. He recommended starting patient on Provera 10 mg daily for the next 14 days, and he will see her in the office and discuss the next options of possibly another D&C versus hysterectomy. Education was done at bedside on alcohol dependence, Limiting alcohol use, increasing Gatorade and Powerade, following up with PCP for depression. Patient patient will be sent home with Zofran, also Phenergan suppositories use as needed. Patient has a follow-up with PCP. No question at discharge. Diagnosis: Dysfunctional uterine bleeding Lab Data Labs: Lab Results 11/25/24 Range/Units 08:46 WBC 9.1 (4.0-11.0) 10^3/uL RBC 3.70 L (4.20-5.40) 10^6/uL Hgb 11.7 L (12.0-16.0) g/dL Hct 35.9 L (36.0-48.0) % MCV 97.0 (81.0-99.0) fL MCH 31.6 (26.7-34.0) pg MCHC 32.6 (29.9-35.2) g/dL RDW 15.0 (11.0-15.0) % Plt Count 316 (150-450) 10^3/uL MPV 8.6 L (9.5-13.5) fL Neut % (Auto) 76.7 H (43.0-75.0) % Lymph % (Auto) 15.4 L (20.5-60.0) % Laurel % (Auto) 5.8 (1.7-12.0) % Eos % (Auto) 1.0 (0.9-7.0) % Baso % (Auto) 0.4 (0.2-2.0) % Neut # (Auto) 7.0 H (1.4-6.5) 10^3/uL Lymph # (Auto) 1.4 (1.2-3.8) 10^3/uL Laurel # (Auto) 0.5 (0.3-0.8) 10^3/uL Eos # (Auto) 0.1 (0.0-0.7) 10^3/uL Baso # (Auto) 0.0 (0.0-0.1) 10^3/uL Abs Immat Gran (auto) 0.06 H (0.00-0.03) 10^3/uL Imm/Tot Granulo (auto) 0.7 H (0.0-0.5) % VBG pH 7.427 (7.330-7.430) VBG pCO2 47.9 (40.0-52.0) mmHg Sodium 137 (136-145) mmol/L Potassium 3.0 L (3.5-5.1) mmol/L Chloride 98 (98-107) mmol/L Carbon Dioxide 31.5 (21.0-32.0) mmol/L Anion Gap 10.5 BUN 3.0 L (7.0-18.0) mg/dL Creatinine 0.77 (0.55-1.02) mg/dL Est GFR ( Amer) >60 (>=60 mL/min/1.73m^2) Est GFR (Non-Af Amer) >60 (>=60 mL/min/1.73m^2) BUN/Creatinine Ratio 3.9 Glucose 143 H (74-106) mg/dL Calcium 8.3 L (8.5-10.1) mg/dL Magnesium 2.1 (1.8-2.4) mg/dL Total Bilirubin 0.7 (0.2-1.0) mg/dL AST 81 H (15-37) U/L ALT 31 (14-59) U/L Alkaline Phosphatase 143 H (46-116) U/L Total Creatine Kinase 24 L (26-192) U/L Total Protein 6.6 (6.4-8.2) g/dL Albumin 2.7 L (3.4-5.0) g/dL Globulin 3.9 g/dL Albumin/Globulin Ratio 0.7 Serum HCG, Qual Negative (NEGATIVE) Blood Type O Positive Antibody Screen Negative ECG Data Attestation: I personally reviewed and interpreted this ECG as follows: (EKG interpretation. Normal sinus rhythm at 87 beats a minute. Normal axis deviation. No acute ST elevation, no acute ectopy. QTc of 450. ) Discharge Plan Discharge Chief Complaint: Vaginal Bleeding Clinical Impression: Dysfunctional uterine bleeding, Alcohol dependence Patient Disposition: Home, Self-Care Time of Disposition Decision: 10:55 Condition: Fair Prescriptions / Home Meds: New medroxyprogesterone [Provera] 10 mg tablet 10 mg PO DAILY 14 Days Qty: 14 0RF Rx Instructions: begin day 1 of cycle No Action amlodipine 10 mg tablet 10 mg PO DAILY buspirone 5 mg tablet 5 mg PO DAILY hydrochlorothiazide 25 mg tablet 25 mg PO DAILY losartan [Cozaar] 100 mg tablet 100 mg PO DAILY hydrocortisone acetate [Anusol-HC] 25 mg suppository 25 mg [place] BID 14 Days Qty: 28 0RF hydroxyzine HCl 25 mg tablet 25 mg PO BID paroxetine HCl 30 mg tablet 30 mg PO DAILY azithromycin [Zithromax Z-Inocencio] 250 mg tablet See Rx Instructions .ROUTE .COMPLEX Qty: 6 0RF Rx Instructions: For 250 mg dose pack: take 500 mg today (day 1), then 250 mg for 4 days (days 2-5) benzonatate 100 mg capsule 100 mg PO TID PRN (Reason: cough) Qty: 20 0RF albuterol sulfate 90 mcg/actuation HFA aerosol inhaler 2 inh inhalation Q4H PRN (Reason: shortness of breath or wheezing) Qty: 8.5 0RF Print Language: Maltese Instructions: Abnormal (Dysfunctional) Uterine Bleeding (ED) Additional Instructions: Continue to increase fluids at home, Gatorade, Powerade, water. Limit alcohol intake daily secondary to obtaining false calories daily. Use nausea medication if needed to help with nausea, vomiting, and hydration You are started on Provera 10 mg tablets, once a day for [address] Davidson and he will discuss in the office on possibly obtaining another D&C and then possible hysterectomy at that time as well if indicated. Referrals: Sam Garcia MD [Primary Care Provider] - 1 week
[2024-11-25] MEDS: FAMOTIDINE/PF 20 MG/2 ML VIAL IV (08:47)
[2024-11-25] MEDS: 0.9 % SODIUM CHLORIDE 1,000 ML 999 ML IV (08:49)
[2024-11-25 09:00] LABS: Basophils Percent Auto 0.4 % (0.2-2.0); Eosinophils Absolute Auto 0.1 10^3/uL (0.0-0.7); Hematocrit 35.9 % (36.0-48.0); Hemoglobin 11.7 g/dL (12.0-16.0); Immature Granulocytes Abs Auto 0.06 10^3/uL (0.00-0.03); Immature Granulocytes Pct Auto 0.7 % (0.0-0.5); Lymphocytes Absolute Auto 1.4 10^3/uL (1.2-3.8); Lymphocytes Percent Auto 15.4 % (20.5-60.0); Mean Corpuscular HGB Conc 32.6 g/dL (29.9-35.2); Mean Corpuscular Hemoglobin 31.6 pg (26.7-34.0); Mean Platelet Volume 8.6 fL (9.5-13.5); Monocytes Absolute Auto 0.5 10^3/uL (0.3-0.8); Monocytes Percent Auto 5.8 % (1.7-12.0); Neutrophils Percent Auto 76.7 % (43.0-75.0); Platelet Count 316 10^3/uL (150-450); White Blood Count 9.1 10^3/uL (4.0-11.0)
[2024-11-25 09:03] LABS: PCO2 VBG 47.9 mmHg (40.0-52.0); pH VBG 7.427 (7.330-7.430)
[2024-11-25 09:21] LABS: Creatine Kinase 24 U/L (26-192); Magnesium 2.1 mg/dL (1.8-2.4)
[2024-11-25 09:22] LABS: Alanine Aminotransferase 31 U/L (14-59); Albumin Globulin Ratio 0.7; Albumin Level 2.7 g/dL (3.4-5.0); Alkaline Phosphatase 143 U/L (46-116); Anion Gap 10.5; Aspartate Amino Transferase 81 U/L (15-37); BUN Creatinine Ratio 3.9; Bilirubin Total 0.7 mg/dL (0.2-1.0); Calcium 8.3 mg/dL (8.5-10.1); Carbon Dioxide 31.5 mmol/L (21.0-32.0); Chloride 98 mmol/L (98-107); Estimated GFR (African America >60 (>=60 mL/min/1.73m^2); Estimated GFR (Non-African Ame >60 (>=60 mL/min/1.73m^2); Globulin 3.9 g/dL; Glucose 143 mg/dL (74-106); Sodium 137 mmol/L (136-145); Total Protein 6.6 g/dL (6.4-8.2)
[2024-11-25 09:26] LABS: HCG Qualitative NEGATIVE (NEGATIVE); Internal Control Within Normal Limits
[2024-11-25] MEDS: MULTIVIT INFUSN,ADULT 4,VIT K 10 ML, FOLIC ACID 1 MG, THIAMINE HCL 100 MG in DEXTROSE 5... 250 ML IV (09:59)
[2024-11-25] MEDS: POTASSIUM BICARBONATE/CIT 25 MEQ TABLET EFF 50 MEQ PO (11:52)
== END 2024-11-25 12:35 | disposition home or self-care (01) ==
PROVIDERS: Emergency Provider Emergency Medicine; PCP Family Medicine
DX: N93.8 Other specified abnormal uterine and vaginal bleeding (principal); F10.20 Alcohol dependence, uncomplicated; F32.A Depression, unspecified; Z79.899 Other long term (current) drug therapy; Z98.51 Tubal ligation status; Z90.722 Acquired absence of ovaries, bilateral; Z96.649 Presence of unspecified artificial hip joint; Z87.891 Personal history of nicotine dependence
CPT/HCPCS: 36415; 76830; 80053; 81001; 82550; 82800; 83735; 84703; 85025; 86850; 86900; 86901; 93005; 96365; 96366; 96375; 99285; J3411; J3490

== ENCOUNTER 2025-03-02 10:28 | Outpatient (OUT) | payer MEDICAID, SELFPAY ==
--- OUTSIDE RECORDS SUMMARY | 2017-07-15 09:49 | XMS_ITS | Continuity of Care Document ---
Author Organization [facility] Address [address] [place] [address] ELIAS Martinez [address] Phone Care Team Providers Care Dirt Bike Mechanic Name Role Phone Unavailable Unavailable Unavailable Allergies, [...] Diagnoses Date Provider Providers Copied on Encounter [facility], [address] [place] [address], [id number], tel:[phone] [facility] Kyle No Information 7 No Information ESTABLISHED OFFICE/OUTPA TIENT VISIT [facility], [address] [place] [address], [id number], tel:[phone] [facility] Lab results (chief complaint) Mixed hyperlipidemiaEss ential hypertensionBody mass index (BMI) 40.0-44.9, adultMorbid obesity with BMI of 40.0-44.9, adultAlcohol abuse Sabrina DO Kunz. [address] [place] [address], [id number], [place]. tel:[phone] HEALTH RISK ASSESSMENT TEST [facility], [address] [place] [address], [id number], [place] tel:[phone] [facility] new patient (chief complaint) Body mass [...] type Covered constitution party ID Authoriza tion(s) [facility] [id number] Sliding Fee Scale A Social History Type [...] nt Illness Lab results Pt returns to [facility] for review of lab results from [...] patient with [facility]. Just moved here from [place]. Hx HTN, Right ORIF, OA, Anxiety. I'm [...] on availability.FOLLOW UP appt with DERM AND FOLLOW UP SPECIALIST specialist(s) as directed. Patient to go to [...]
--- OUTSIDE RECORDS SUMMARY | 2025-02-20 10:40 | XMS_ITS | Encounter Summary ---
Author Organization [facility] Address [address] [facility] [place] [address] Care Team Providers Care Religious Assistant Name Role Phone Sam Garcia MD Primary Care Provider [phone] Reason for Visit * Reason Comments Pre-op Visit Encounter Details Date Type Department Care Team ( Contact Info) Description 02/20/2025 10:40 AM EDT Consult [facility] [address] [facility] [place] [phone] Azeem Davidson DO [address] [facility] [place] [address] Pre-op examination; Post-menopausal bleeding Social History Tobacco Use Types Packs/Day Years Used Date Smoking Tobacco: Former Cigarettes 2012 Alcohol Use Standard Drinks/Week Comments Yes 12 (1 standard drink = 0.6 oz pu re alcohol) AUDIT-C Answer Date Recorded Q1: How often do you have a drink containing alcohol? 4 or more times a week 08/21/2023 Q2: How many drinks containi ng alcohol do you have on a typical day when you are drinking? 3 or 4 Q3: How often do you have si x or more drinks on one occasion? Never 08/21/2023 Comments No Sex and Gender Information Value Date Recorded Sex Assigned at Not on file Legal Sex Female 11:21 PM EDT Gender Identity Not on file Sexual Orientation Not on file documented as of this encounter Last Filed Vital Signs Vital Sign Reading Time Taken Comments Blood Pressure 102/60 02/20/2025 10:36 AM EDT Pulse - - Temperature - - Respiratory Rate - - Oxygen Saturation - - Inhaled Oxygen Concentration - - Weight 102 kg (225 lb) 02/20/2025 10:36 AM EDT Height - - Body Mass Index 42.51 01/04/2025 9:26 AM EDT documented in this encounter Progress Notes * Olive Quan - 02/20/2025 10:40 AM EDT Reason for Appointment: Patient ID: Doris Badillo is a 59 y.o. female who presents for Pre-op Visit Patient presents today for Pre Op appointment. Patient is scheduled to undergo D&C Hysteroscopy, possible Myosure on 03-17-[address] Davidson at [facility]. MEDICATIONS Current Outpatient Medications Medication Instructions allopurinol (ZYLOPRIM) 300 mg, Oral, Daily amLODIPine (NORVASC) 10 mg, Oral, Daily budesonide-formoterol (Symbicort) 160-4.5 MCG/ACT inhaler 2 puffs, Inhalation, 2 times daily, [place] with water after use to reduce aftertaste and incidence of candidiasis. Do not swallow. cyclobenzaprine (FLEXERIL) 10 mg, Oral, 3 times daily PRN famotidine (PEPCID) 20 mg, Oral, Nightly hydroCHLOROthiazide (HYDRODIURIL) 25 mg, Oral, Daily levothyroxine (SYNTHROID) 75 mcg, Oral, Daily before breakfast losartan (COZAAR) 100 mg, Oral, Daily ALLERGIES Allergies Allergen Reactions Demerol Hcl [Meperidine] Hives PROBLEMS Active Ambulatory Problems Diagnosis Date Noted Acquired valgus deformity of foot, left 09/03/2023 Arthritis of ankle, left 09/03/2023 Essential hypertension, benign 09/03/2023 Bone cyst of left ankle 09/03/2023 Chronic gastritis 09/03/2023 Chronic left shoulder pain 09/03/2023 Chronic pain of left ankle 09/03/2023 DDD (degenerative disc disease), lumbar 09/03/2023 Equinus contracture of left ankle 09/03/2023 Generalized anxiety disorder 09/03/2023 Generalized osteoarthrosis, involving multiple sites 09/03/2023 Adult hypothyroidism 09/03/2023 Posterior tibial tendon dysfunction, left 09/03/2023 Prediabetes 09/03/2023 Tear of deltoid ligament of ankle, sequela 09/03/2023 Acquired varus deformity of left foot 09/03/2023 Primary osteoarthritis of left hip 09/09/2023 Major depressive disorder, recurrent episode, moderate degree ([facility]) 09/24/2023 Class 3 severe obesity due to excess calories with serious comorbidity and body mass index (BMI) of45.0 to 49.9 in adult ([facility]) 09/24/2023 Status post total hip replacement, left 10/18/2023 Bleeding hemorrhoids 06/21/2024 Encounter for long-term (current) use of medications 06/21/2024 Edema of both legs 07/01/2024 Globus sensation 09/05/2024 COPD (chronic obstructive pulmonary disease) ([facility]) 09/05/2024 Post-menopausal bleeding 01/10/2025 Gouty arthritis 01/10/2025 General weakness 01/25/2025 Impaired functional mobility, balance, gait, and endurance 01/25/2025 History of 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 joint 01/25/2025 Resolved Ambulatory Problems Diagnosis Date Noted Chronic kidney disease, stage III (moderate) ([facility]) 09/03/2023 Encounter for preoperative assessment 09/24/2023 Acute postoperative pain of left hip 10/18/2023 Past Medical History: Diagnosis Date 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, midfoot Atrial fibrillation ([facility]) Benign essential hypertension Chronic gastritis without bleeding CKD (chronic kidney disease), stage III ([facility]) JIGNA (generalized anxiety disorder) Generalized osteoarthritis of multiple sites Hypertension Hypothyroidism, adult Insomnia, persistent Right elbow pain Thyroid dysfunction Varus foot deformity, acquired, left HISTORY PAST MEDICAL HISTORY SOCIAL HISTORY Past Medical History: Diagnosis Date 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 of ankle, left Arthritis, midfoot Atrial fibrillation ([facility]) Benign essential hypertension Bone cyst of left ankle Chronic gastritis without bleeding Chronic left shoulder pain Chronic pain of left ankle CKD (chronic kidney disease), stage III ([facility]) DDD (degenerative disc disease), lumbar Equinus contracture of left ankle JIGNA (generalized anxiety disorder) Generalized osteoarthritis of multiple sites Hypertension Hypothyroidism, adult Insomnia, persistent Posterior tibial tendon dysfunction, left Prediabetes Right elbow pain Tear of deltoid ligament of ankle, sequela Thyroid dysfunction Varus foot deformity, acquired, left Social History Tobacco Use Smoking status: Former Current packs/day: 0.00 Average packs/day: 1 pack/day for 30.0 years (30.0 ttl pk-yrs) Types: Cigarettes Start date: 1982 Quit date: 2012 Years since quittin.5 Smokeless tobacco: Not on file Substance Use Topics Alcohol use: Yes Alcohol/week: 12.0 - 16.0 standard drinks of alcohol Types: 12 - 16 Standard drinks or equivalent per week Drug use: Never FAMILY HISTORY Family History Problem Relation Name Age of Onset Arthritis Father SURGICAL HISTORY Past Surgical History: Procedure Laterality Date ANKLE ARTHROPLASTY Left BACK SURGERY 2019 DILATION AND CURETTAGE OF UTERUS 07/2023 IR ABLATION NERVE 2020 Ispine -Dr. Clay OOPHORECTOMY Right [place] KNEE SCOPE,DIAGNOSTIC Right 1997 TOTAL HIP ARTHROPLASTY Right TOTAL HIP ARTHROPLASTY Left 10/15/2023 Dr Keen & a 2nd repair on 10/2023 REVIEW OF SYSTEMS Review of Systems: Review of Systems Constitutional: Negative. HENT: Negative. Eyes: Negative. Respiratory: Negative. Cardiovascular: Negative. Gastrointestinal: Negative. Genitourinary: Positive for vaginal bleeding. Musculoskeletal: Negative. Skin: Negative. Neurological: Negative. All other systems reviewed and are negative. Hematological: Negative. Endocrine: Negative. Allergic/Immunologic: Negative. OBJECTIVE Objective: Physical Exam Constitutional: Appearance: Normal appearance. She is well-developed. Cardiovascular: Rate and Rhythm: Normal rate and regular rhythm. Pulmonary: Effort: Pulmonary effort is normal. Breath sounds: Normal breath sounds. Abdominal: General: Bowel sounds are normal. There is no distension. Palpations: Abdomen is soft. Tenderness: There is no abdominal tenderness. There is no guarding or rebound. Musculoskeletal: General: No swelling. Normal range of motion. Right lower leg: No edema. Left lower leg: No edema. Neurological: Mental Status: She is alert and oriented to person, place, and time. Skin: General: Skin is warm and dry. Psychiatric: Mood and Affect: Mood normal. Behavior: Behavior normal. Vitals and nursing note reviewed. Exam conducted with a labeling specialist present. Vitals: Estimated body mass index is 42.48 kg/m?? as calculated from the following: Height as of 01/04/25: 5' 1 . Weight as of 01/10/25: 224 lb 12.8 oz. BP: No LMP recorded. Patient is postmenopausal. ASSESSMENT & PLAN ICD-10-CM 1. Pre-op examination Z01.818 2. Post-menopausal bleeding N95.0 Pre Op: Patient is doing well but has complaints of post-menopausal bleeding. I have discussed conservativemanagement vs. surgical management with the patient in detail and patient desires surgical management at this time. Patient will undergo D&C Hysteroscopy, possible Myosure on 03/17/25. Surgical consents were signed, mmc was reviewed, and patient is to proceed to [facility] OR. Follow Up: Patient is to follow up between 1-2 weeks post operative to assess proper healing and recovery fromprocedure. Documented by Marium Altamirano LPN on behalf of: Azeem Davidson DO documented in this encounter Plan of Treatment Upcoming Encounters Date Type Department Care Team (Late st Contact Info) Description 03/27/2025 8:30 AM EDT Office Visit [facility] [address] [facility] [place] [address] Nola Knight PA [address] [facility] [place] [address] 06/07/2025 8:00 AM EDT Office Visit [facility] [address] [place] [address] Sam Garcia MD [address] [place] [address] documented as of this encounter Visit Diagnoses Diagnosis Pre-op examination Post-menopausal bleeding Postmenopausal bleeding documented in this encounter Care Teams Religious Assistant Relationship Specialty Start Date End Date Sam Garcia MD [address] [place] [address] PCP - General Family Medicine 09/14/23 documented as of this encounter
--- OUTSIDE RECORDS SUMMARY | 2025-03-01 08:15 | XMS_ITS | Encounter Summary ---
Author Organization [facility] Address [address] [place] [address] Care Team Providers Care Center Sales And Service Associate Name Role Phone Sam Garcia MD Primary Care Provider [phone] Reason for Visit * Reason Comments Follow-up Surgical clearance d & c possible hyst Encounter Details Date Type Department Care Team ( Contact Info) Description 03/01/2025 8:15 AM EDT Office Visit [facility] [address] [place] [address] Sam Garcia MD [address] [place] [address] Preoperative clearance (Primary Dx); Post-menopausal bleeding; Essential hypertension, benign ; Paroxysmal atrial fibrillation (HCC); Chronic obstructive pulmonary disease, unspecified COPD type (HCC); Gouty arthritis Social History Tobacco Use Types Packs/Day Years [...] Sign Reading Time Taken Comments Blood Pressure 114/62 03/01/2025 8:23 AM EDT Pulse 60 03/01/2025 8:23 AM EDT Temperature 36.3 C (97.3 F) 03/01/2025 8:23 AM EDT Respiratory Rate 22 03/01/2025 8:23 AM EDT Oxygen Saturation 99% 03/01/2025 8:23 AM EDT Inhaled Oxygen Concentration - - Weight 100 kg (221 lb) 03/01/2025 8:23 AM EDT Height 154.9 cm (5' 1 ) 03/01/2025 8:23 AM EDT Body Mass Index 41.76 03/01/2025 8:23 AM EDT documented in this encounter Progress Notes * Sam Garcia MD - 03/01/2025 8:48 AM EDTAssociated Problem(s): Preoperative clearance Able to proceed with surgery at low risk for complications pending results of echo. Seen by cardiology for clearance. No chest pain or palpitations. * Sam Garcia MD - 03/01/2025 8:48 AM EDTAssociated Problem(s): Post- menopausal bleeding Follow with valve inserter. * Sam Garcia MD - 03/01/2025 8:47 AM EDTAssociated Problem(s): Paroxysmal atrial fibrillation (HCC) In NSR and continue medication. * Sam Garcia MD - 03/01/2025 8:47 AM EDTAssociated Problem(s): Gouty arthritis Start allopurinol. * Sam Garcia MD - 03/01/2025 8:47 AM EDTAssociated Problem(s): Essential hypertension, benign BP controlled and monitor PRN. * Sam Garcia MD - 03/01/2025 8:47 AM EDTAssociated Problem(s): COPD (chronic obstructive pulmonary disease) ([facility]) Symptoms stable and continue symbicort. Continue albuterol PRN. * Sam Garcia MD - 03/01/2025 8:15 AM EDT Images from the original note were not included. Subjective Patient ID: Doris Badillo is a 59 y.o. female who presents for Follow-up (Surgical clearanced& c possible hyst). Presents for preoperative evaluation. Developed post-menopausal bleeding and scheduled for D&C.May eventually need hysterectomy. Overall feels well. Checking BP PRN and typically controlled. BP normal today. Taking medication daily and tolerating without side effects. Afib stable. No palpitations or heart racing. Not lightheaded or dizzy. COPD stable and mild SOB with exertion. Seen by cardio logy few weeks ago and echo ordered. Patient cleared by cardiology pending echo. No chest pain or SOB. Review of Systems Respiratory: Negative for cough, [...] Items Addressed This Visit Essential hypertension, benign BP controlled and monitor PRN. COPD (chronic obstructive pulmonary disease) (HCC) Symptoms stable and continue symbicort. Continue albuterol PRN. Post-menopausal bleeding Follow with valve inserter. Gouty arthritis Start allopurinol. Relevant Medications allopurinol (Zyloprim) 300 MG tablet Preoperative clearance - Primary Able to proceed with surgery at low risk for complications pending results of echo. Seen by cardiology for clearance. No chest pain or palpitations. Paroxysmal atrial fibrillation (HCC) In NSR and continue medication. documented in this encounter Plan of Treatment Upcoming Encounters Date Type Department Care Team (Late st Contact Info) Description 03/27/2025 8:30 AM EDT Office Visit [facility] [address] [facility] [place] [address] Noal Knight PA [address] [place] [address] 06/07/2025 8:00 AM EDT Office Visit [facility] [address] [place] [address] Sam Garcia MD [address] [place] [address] documented as of this encounter Visit Diagnoses Diagnosis Preoperative clearance- Primary Unspecified pre-operative examination Post-menopausal bleeding Postmenopausal bleeding Essential hypertension, benign Essential hypertension, benign Paroxysmal atrial fibrillation (HCC) Atrial fibrillation Chronic obstructive pulmonary disease, unspecified COPD type (HCC) Gouty arthritis Gouty arthropathy, unspecified documented in this encounter Care Teams Center Sales And Service Associate Relationship Specialty Start Date End Date Sam Garcia MD [address] [place] [address] PCP - General Family Medicine 09/14/23 documented as of this encounter
--- NOTE | 2025-03-02 10:33 | XR_ITS ---
The [address] [address] Patient Name: OG SHEFFIELD MRN: [facility]:[id number] date: 1965 Sex: F Assigned Patient Location: [facility] Current Patient Location: [facility] Accession/Order Number: [id number] Exam Date: 03/02/2025 11:34 Report Date: 03/02/2025 11:36 At the request of: JOHNNY GREEN DO Procedure: XR chest 2V PA AND LATERAL CHEST: CLINICAL HISTORY: Preoperative clearance COMPARISON: 07/11/2024 There is no focal parenchymal consolidation, effusion or pneumothorax. The cardiac, hilar and mediastinal silhouettes are within normal limits. There is no vascular congestion. The visualized bony thorax is intact. Endplate spurring is present at the spine. There are also degenerative changes at the shoulders, greater on the left. XR/XR chest 2V IMPRESSION: NO ACUTE CARDIOPULMONARY ABNORMALITY. Impression dictated by: Marium Alarcon M.D. 03/02/2025 11:36 AM Dictation Location: [place] [address] Electronically authenticated by: [id number] Y Date: 03/02/2025 11:36
--- OUTSIDE RECORDS SUMMARY | 2025-03-02 10:33 | XMS_ITS | Encounter Summary ---
Author Organization [employer] Address [id number] [address] [place] [address] Care Team Providers Care Internship Name Role Phone Sam Garcia MD Primary Care Provider [phone] Encounter Details Date Type Department Care Team (Late st Contact Info) Description 04/27/2024 Orders Only [facility] [address] [place] [address] Tia Collins, ADRIENNE S/P revision of total hip (Primary Dx) Social History Tobacco Use Types Packs/Day Years Used Date Smoking Tobacco: Former Cigarettes Q uit: 2013 Smokeless Tobacco: Never Alcohol Use Standard Drinks/Week Comments Yes 14 (1 standard drink = 0.6 oz pu re alcohol) [facility] Utilities Answer Date Recorded In the past 12 months has e electric, gas, oil, or water company threatened to shut off services in your home? No 11/07/2023 PRAPARE - Transportation Answer Date Re corded In the past 12 months, has l ack of transportation kept you from medical appointments or from getting medications? No 10/22 In the past 12 months, has l ack of transportation kept you from meetings, work, or from getting things needed for daily living? No 11/07/2023 Housing Instability Answer Date Recorde d Are you worried or concerned that in the next two months you may not have stable housing that you own, rent or stay in as a part of a household? No 11/07/2023 Childcare Answer Date Recorded Childcare Unknown 02/02/2019 Employment Answer Date Recorded Employment Unknown 02/02/2019 Hunger Screening Answer Date Recorded Within the past 12 months we worried whether our food would run out before we got money to buy more. Never True 01/21/2024 Within the past 12 months th e food we bought just didn't last and we didn't have money to get more. Never True 01/21/2024 Purpose - Life Answer Date Recorded Purpose and direction in life Unknown Comments No Sex and Gender Information Value Date Recorded Sex Assigned at Not on file Legal Sex Female 11:46 AM EDT Gender Identity Not on file Sexual Orientation Not on file documented as of this encounter Plan of Treatment Not on file documented as of this encounter Goals Goal Patient Goal Type Associated Problems Recent Progress Patient-Stated? Author home General Yes Rosa Lipscomb LSW Note: Evaluation of progress towards goal: has been up with therapy discharge planning General Yes Kassie Turner, RN Note: Evaluation of progress towards goal: Discharge plan is home with home health care. documented as of this encounter Results * X-ray femur left 2+ views (04/28/2024 11:17 AM EDT) Anatomical Region Laterality Modality Femur Left Computed Radiogr aphy 04/28/2024 7:02 PM EDT Narrative 04/28/2024 7:02 PM EDT XR FEMUR LT 2+ VIEWS Clinical history:S/P revision of total hip left hip pain Comparison: 01/21/2024 Impression: Stable postoperative changes in alignment of the longstem left femoral hip arthroplasty device. No acute processes fracture or dislocation. No evidence of hardware competition. Finalized by Sebastian Rebolledo MD on 04/28/2024 7:02 PM Procedure Note Sebastian Rebolledo MD - 04/28/2024 XR FEMUR LT 2+ VIEWS Clinical history:S/P revision of total hip left hip pain Comparison: 01/21/2024 Impression: Stable postoperative changes in alignment of the longstem left femoral hiparthroplasty device. No acute processes fracture or dislocation. Noevidence of hardware competition. Finalized by Sebastian Rebolledo MD on 04/28/2024 7:02 PM us German Ramirez MD IMG DIAGNOSTIC IMAGING O RDERABLES Final Result documented in this encounter Visit Diagnoses Diagnosis S/P revision of total hip- Primary S/P revision of total hip documented in this encounter Care Teams Internship Relationship Specialty Start Date End Date Sam Garcia MD PCP - General Family Medicine 06/30/24 documented as of this encounter
--- OUTSIDE RECORDS SUMMARY | 2025-03-02 10:33 | XMS_ITS | Encounter Summary ---
Author Organization [facility] Address [address] [facility] [place] [address] Care Team Providers Care Cane Stripper Name Role Phone Sam Garcia MD Primary Care Provider [phone] Encounter Details Date Type Department Care Team ( Contact Info) Description 11/19/2023 [facility] [address] [place] [address] Sam Garcia MD [address] [place] [phone] Social History Tobacco Use Types Packs/Day Years [...] as of this encounter Plan of Treatment Upcoming Encounters Date Type Department Care Team (Late Contact Info) Description 03/27/2025 8:30 AM EDT Office Visit [facility] [address] [facility] [phone] Nola Knight PA [address] [place] [address] 06/07/2025 8:00 AM EDT Office Visit [facility] [address] [place] [phone] Sam Garcia MD [address] [place] [address] documented as of this encounter Procedures Procedure Name Priority Date/Time Associated Diagnosis Comments SCANNED LABS Routine 11/19/2023 8:49 AM EDT documented in this encounter Results * SCANNED LABS (11/19/2023 8:49 AM EDT) Sam Garcia MD LAB CHG PERFORMABLES Final Resul t documented in this encounter Visit Diagnoses Not on filedocumented in this encounter Care Teams Cane Stripper Relationship Specialty Start Date End Date Sam Garcia MD [address] [place] [address] PCP - General Family Medicine 09/14/23 documented as of this encounter
--- OUTSIDE RECORDS SUMMARY | 2025-03-02 10:33 | XMS_ITS | Encounter Summary ---
Author Organization [facility] Address [address] [facility] [place] [address] Care Team Providers Care Machine Installer Name Role Phone Sam Garcia MD Primary Care Provider [phone] Encounter Details Date Type Department Care Team ( Contact Info) Description 03/01/2025 Bamboo flowsheet [facility] [address] [place] [address] Sam Garcia MD [address] [place] [address] Social History Tobacco Use Types Packs/Day Years [...] Upcoming Encounters Date Type Department Care Team ( Contact Info) Description 03/27/2025 8:30 AM EDT Office Visit [facility] [address] [place] [address] Nola Knight PA [address] [place] [address] 06/07/2025 8:00 AM EDT Office Visit [facility] [address] [place] [phone] Sam Garcia MD [address] [place] [address] documented as of this encounter Visit Diagnoses Not on filedocumented in this encounter Care Teams Machine Installer Relationship Specialty Start Date End Date Sam Garcia MD [address] [place] [address] PCP - General Family Medicine 09/14/23 documented as of this encounter
--- OUTSIDE RECORDS SUMMARY | 2025-03-02 10:33 | XMS_ITS | Encounter Summary ---
Author Organization [facility] Address [address] [facility] [place] [address] Care Team Providers Care Play Therapist Name Role Phone Sam Garcia MD Primary Care Provider [phone] Encounter Details Date Type Department Care Team ([facility] Contact Info) Description 09/18/2023 External Result Encounter [facility] [address] [facility] [address] [place] [address] Wilfredo Keen, DO [address] [facility] [address] [place] [address] Social History Tobacco Use Types Packs/Day Years [...] Upcoming Encounters Date Type Department Care Team ([facility] Contact Info) Description 03/27/2025 8:30 AM EDT Office Visit [facility] [address] [facility] [place] [phone] Nola Knight PA [address] [place] [address] 06/07/2025 8:00 AM EDT Office Visit [facility] SHIRLENE P[facility]Y [address] [place] [phone] Sam Garcia MD [address] [place] [address] documented as of this encounter Procedures Procedure Name Priority Date/Time Associated Diagnosis Comments XR CHEST 2 VIEWS 09/18/2023 11:4 4 AM EST CBC WITH AUTO DIFFERENTIAL Routine 09/18/2023 9:54 AM EST BASIC METABOLIC PANEL Routine 09/18/2023 9:54 AM EST documented in this encounter Results * XR chest 2 views (09/18/2023 11:44 AM EST) Anatomical Region Laterality Modality Chest Radiographic Rebecca ging 09/18/2023 11:4 4 AM EST Narrative 09/18/2023 11:43 AM EST THIS EXAM WAS PERFORMED AT [facility] CHEST RADIOGRAPH 09/18/2023 10:03 AM CLINICAL INDICATION: [...] Wes Rosales MD on 09/18/2023 11:43 AM Procedure Note Radiology, Radiologist, - 09/18/2023 THIS EXAM WAS PERFORMED AT [facility] CHEST RADIOGRAPH 09/18/2023 10:03 AM CLINICAL INDICATION: Preoperative testing, history of atrial fibrillationand hypertension. TECHNIQUE: Frontal and lateral views of the chest were obtained. COMPARISON: No comparison study. FINDINGS: Lungs: Lungs are free of infiltrate. There is no pleural effusion orpneumothorax. Heart: Heart size is normal. Mediastinum: Mediastinal contour is normal. Other: No displaced fractures identified. IMPRESSION: 1. No acute intrathoracic process. Finalized by Wes Rosales MD on 09/18/2023 11:43 AM Wilfredo Keen DO IMG XR PROCEDURES Final Re sult * (ABNORMAL) Basic metabolic panel (09/18/2023 9:54 AM EST) Sodium 137 134 - 146 mmol/L [facility] Potassium, Bld 4.1 3.5 - 5.0 mmol/L [facility] Chloride 97(L) 98 - 109 mmol/L [facility] Carbon Dioxide 27 22 - 32 mmol/L [facility] Anion Gap 13 5 - 15 mmol/L [facility] BUN 11 5 - 23 mg/dL [facility] Creatinine 0.86 0.40 - 1.00 mg/dL [facility] Comment:METHOD TRACEABLE TO IDMS STANDARD Glucose 173(H) 65 - 99 mg/dL [facility] Calcium 9.2 8.5 - 10.5 mg/dL [facility] EGFR 80 >59 ml/min/1.7 3sq.m [facility] Comment: Reported eGFR is based on the CKD-EPI 2020 equation that does not use a race coefficient. PERFORMED AT [facility] [address],[place] [address] 09/18/2023 9:54 AM EST 09/18/2023 9:55 AM EST Wilfredo Keen DO LAB BLOOD ORDERABLES Final Result [facility] * (ABNORMAL) CBC auto differential (09/18/2023 9:54 AM EST) WHITE BLOOD CELL COUNT, WBC 6.9 4.0 - 11.0 X10E9/L [facility] RED BLOOD CELL COUNT, RBC 4.46 3.80 - 5.20 X10E12/L [facility] HEMOGLOBIN 13.9 11.7 - 15.5 g/dL [facility] HEMATOCRIT 42.3 35 - 47 % [facility] MEAN CELL VOLUME, MCV 95 80 - 100 fL [facility] MEAN CELL HEMOGLOBIN, MCH 31.2 27 - 34 pg [facility] MEAN CELL HEMOGLOGIN CONCENTRATION, MCHC 32.9 32 - 36 g/dL [facility] RED CELL DISTRIBUTION WIDTH, RDW 16.0(H) 11.5 - 15.0 % [facility] PLATELET COUNT 294 150 - 450 X10E9/L [facility] MEAN PLATELET VOLUME, MPV 7.0 7 - 12 fL [facility] % NEUTROPHILS 74.6 % [facility] % LYMPHOCYTES 15.4 % [facility] % MONOCYTES 8.4 % [facility] % EOSINOPHILS 1.2 % [facility] % BASOPHILS 0.4 % [facility] ABSOLUTE NEUTROPHIL 5.1 1.5 - 6.6 X10E9/L [facility] ABSOLUTE LYMPHOCYTE 1.1 1.0 - 3.5 X10E9/L [facility] ABSOLUTE MONOCYTE 0.6 0 - 0.9 X10E9/L [facility] ABSOLUTE EOSINOPHIL 0.1 0.0 - 0.4 X10E9/L [facility] ABSOLUTE BASOPHIL 0.0 0.0 - 0.2 X10E9/L [facility] Comment:PERFORMED AT [facility] [address],[place] [address] 09/18/2023 9:54 AM EST 09/18/2023 9:55 AM EST Wilfredo Keen DO LAB BLOOD ORDERABLES Final Result [facility] documented in this encounter Visit Diagnoses Not on filedocumented in this encounter Care Teams Play Therapist Relationship Specialty Start Date End Date Sam Garcia MD [address] [place] [address] PCP - General Family Medicine 09/14/23 documented as of this encounter
--- OUTSIDE RECORDS SUMMARY | 2025-03-02 10:33 | XMS_ITS | Encounter Summary ---
Author Organization [facility] Address [address] [facility] [place] [address] Care Team Providers Care Day Haul Or Farm Charter Bus Driver Name Role Phone Sam Garcia MD Primary Care Provider [phone] Encounter Details Date Type Department Care Team ([facility] Contact Info) Description 07/12/2024 Orders Only [facility] [address] [place] [phone] Onofre Alston MD [address], [place] [phone] Social History Tobacco Use Types Packs/Day Years [...] Upcoming Encounters Date Type Department Care Team ([facility] Contact Info) Description 03/27/2025 8:30 AM EDT Office Visit [facility] [address] [facility] [place] [address] Nola Knight PA [address] [place] [address] 06/07/2025 8:00 AM EDT Office Visit [facility] [address] [place] [address] Sam Garcia MD [address] [place] [address] documented as of this encounter Procedures Procedure Name Priority Date/Time Associated Diagnosis Comments XR CHEST 1 VIEW Routine 07/12/2024 2:13 PM EST documented in this encounter Results * XR chest 1 view (07/12/2024 2:13 PM EST) Anatomical Region Laterality Modality Chest Radiographic Rebecca ging Onofre Alston MD IMG XR PROCEDURES Final Resul t documented in this encounter Visit Diagnoses Not on filedocumented in this encounter Care Teams Day Haul Or Farm Charter Bus Driver Relationship Specialty Start Date End Date Sam Garcia MD [address] [place] [address] PCP - General Family Medicine 09/14/23 documented as of this encounter
--- OUTSIDE RECORDS SUMMARY | 2025-03-02 10:33 | XMS_ITS | Clinical Summary ---
Author Organization [employer] Address [id number] [address] [place] [address] Care Team Providers Care Merchandiser Retail Representative Name Role Phone Sam Garcia MD Primary Care Provider [phone] Allergies Active Allergy Reactions Criticality Noted Date Comments Meperidine Hives 09/15/2023 Medications amLODIPine (NORVASC) 10 mg tablet Take 1 tablet (10 mg total) by mouth in the morning. Active busPIRone (BUSPAR) 5 mg tablet Take 1 tablet (5 mg total) by mouth as needed. Active hydrOXYzine (ATARAX) 25 mg tablet Take 2 tablets (50 mg total) by mouth every 6 (six) hours as needed. Active losartan (COZAAR) 50 mg tablet Take 2 tablets (100 mg total) by mouth in the morning. Active PARoxetine (PAXIL) 30 mg tablet Take 1 tablet (30 mg total) by mouth every morning. Active albuterol (PROVENTIL HFA;VENTOLIN HFA) 90 mcg/actuation inhaler 1 puff every 4 (four) hours as needed. 07/11/2024 Active furosemide (LASIX) 40 mg tablet Take 1 tablet (40 mg total) by mouth as needed. 07/01/2024 Active hydroCHLOROthia zide (HYDRODIURIL) 25 mg tablet Take 1 tablet (25 mg total) by mouth daily. 06/21/2024 Active levothyroxine (SYNTHROID, LEVOTHROID) 75 MCG tablet Take 1 tablet (75 mcg total) by mouth in the morning. 07/01/2024 Active benzonatate (TESSALON PERLES) 100 mg capsule Take 1 capsule (100 mg total) by mouth 3 (three) times a day as needed. 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 Periprosthetic fracture arou nd internal prosthetic hip joint 11/07/2023 Paroxysmal atrial fibrillation 11/07/2023 Primary hypertension 11/07/2023 Vitamin D deficiency 11/07/2023 Acute blood loss anemia 11/07/2023 Primary localized osteoarthritis of left hip Encounters Date Type Department Care Team Description 01/09/2025 Travel 12/13/2024 Telephone [facility] [address] [place] [address] German Ramirez MD from Last 3 Months Family History Medical History Relation Name Comments Kidney cancer Father Relation Name Status Comments Father Alive Mother Social History Tobacco Use Types Packs/Day Years Used Date Smoking Tobacco: Former Cigarettes Q uit: 2013 Smokeless Tobacco: Never Tobacco Cessation:Counseling Given: Not Answered Alcohol Use Standard Drinks/Week Comments Yes 14 (1 standard drink = 0.6 oz pu re alcohol) [facility] Utilities Answer Date Recorded In the past [...] on file Sexual Orientation Not on file Last Filed Vital Signs Vital Sign Reading Time Taken Comments Blood Pressure 143/88 11/14/2023 10:21 AM EDT Pulse 87 11/14/2023 10:21 AM EDT Temperature 36.3 C (97.3 F) 04/28/2024 11:44 AM EDT Respiratory Rate 18 11/14/2023 10:21 AM EDT Oxygen Saturation 94% 11/14/2023 10:21 AM EDT Inhaled Oxygen Concentration - - Weight 115.7 kg (255 lb) 07/29/2024 7:46 AM EST Height 154.9 cm (5' 1 ) 07/29/2024 7:46 AM EST Body Mass Index 48.18 07/29/2024 7:46 AM EST Plan of Treatment Health Maintenance Due Date Last Done Comments Depression Screening 1979 Adult BMI Follow Up Plan 1985 COVID-19 Vaccine ( season) 2024, 02/26/2021 Zoster (Shingles) Vaccine (2 of 2) 01/12/20252024 Influenza Vaccine 04/24/2025 03/20/2021, 05/11/2019 Adult BMI Screening 07/29/2025 07/29/2024 Tobacco Screening 07/29/2025 07/29/2024 Pap Smear 07/06/2026 07/06/2023 DTaP,Tdap and Td Vaccines (2 - Td or Tdap) 11/17/2034 11/17/2024 Goals Goal Patient Goal Type Associated Problems Recent Progress Patient-Stated? Author home General Yes Rosa Lipscomb LSW Note: Evaluation of progress towards goal: has been up with therapy discharge planning General Yes Johnny, Kassie, RN Note: Evaluation of progress towards goal: Discharge plan is home with home health care. Medical Devices Implanted Type Area Receiving Supervisor Device Identifier Shelf Expiration Date Model / Serial / Lot Assembly Cblpn 914mm 1.8mm Cbl Rd Cocr Crlge Strl Rpl [id number] - [id number] Implanted:Qty: 2 on 11/09/2023 by German Ramirez MD at [facility] Implant Cable Left: Hip [employer] 05/23/2033-2 8 [id number] Assembly Cblpn 914mm 1.[address] Cocr Crlge Strl Rpl [id number] - [id number] Implanted:Qty: 1 on 11/09/2023 by German Ramirez MD at [facility] Implant Cable Left: Hip [employer] 03/15/2033-2 8 [id number] Assembly Cblpn 914mm 1.[address] Cocr Crlge Strl Rpl [id number] - [id number] Implanted:Qty: 1 on 11/09/2023 by German Ramirez MD at [facility] Implant Cable Left: Hip [employer] 07/11/2033-2 [id number] Shell Actb 44mm Hip 3 Hl Clr Cd [place] G7 A Hmsphr - Sna - [id number] Implanted:Qty: 1 on 10/15/2023 by Wilfredo Keen DO at [facility] Orthopedic Implant Left: Hip [employer] 02/14/2028 [id number] / NA / [id number] Stem Fem 137d 1 08/06 37mm Fitmore Protasul-64 Hip Rgh Blast - Sna - [id number] Implanted:Qty: 1 on 10/15/2023 by Wilfredo Keen DO at [facility] Orthopedic Implant Left: Hip [employer] 05/23/2032 01.58169.201 / NA / [id number] Head Fem 28mm +3.5mm 08/06 Lg Trlg It Contin Blx D Hip Actb - Sna - [id number] Implanted:Qty: 1 on 10/15/2023 by Wilfredo Keen DO at [facility] Orthopedic Implant Left: Hip [employer] 05/20/2031 [id number] 3 / NA / [id number] Acetabular Systemvivacit-E Highly Crosslinked Polyethylene Liner High Wall Implanted:Qty: 1 on 10/15/2023 by Wilfredo Keen DO at [facility] Orthopedic Implant Left: Hip [employer] 07/07/2026 [id number] / NA / [id number] Biolox Delta Modular Ceramic Head Implanted:Qty: 1 on 11/09/2023 by German Ramirez MD at [facility] Orthopedic Implant Left: Hip [employer]omet 07/28/2032 650-1161 / / [id number] Shell Actb 48mm Hip Mlhl Clr Cd [place] G7 C Hmsphr - [id number] Implanted:Qty: 1 on 11/09/2023 by German Ramirez MD at [facility] Orthopedic Implant Left: Hip [employer] 10/14/2028 [id number] / / [id number] Amanda Modular Revision Hip System Sts Distal Stem Implanted:Qty: 1 on 11/09/2023 by German Ramirez MD at [facility] Orthopedic Implant Left: Hip [employer]omet 03/13/2033 [id number] / / [id number] Liner Actb 32mm C Vivacit-E Lum G7 Hip Strl Lf - [id number] Implanted:Qty: 1 on 11/09/2023 by German Ramirez MD at [facility] Orthopedic Implant Left: Hip [employer] 08/08/2028 [id number] / / [id number] Body Cone Hip Fem C Std Os 60mm Amanda Ti Strl Mdlr Rev Sys Rpl 303 - [id number] Implanted:Qty: 1 on 11/09/2023 by German Ramirez MD at [facility] Orthopedic Implant Left: Hip [employer] 09/10/2032303 / / [id number] Screw Bn 25mm 6.5mm St Hip Trlg Strl Rpl [id number]+ [id number] - Sna - [id number] Implanted:Qty: 1 on 10/15/2023 by Wilfredo Keen DO at [facility] Screw Left: Hip [employer] 09/29/2032 [id number] / NA / [id number] Screw Bn 30mm 6.5mm St Actb Giovani Trlg Strl Rpl [id number] +[id number] - Sna - [id number] Implanted:Qty: 1 on 10/15/2023 by Wilfredo Keen DO at [facility] Screw Left: Hip [employer] 04/04/2033 [id number] / NA / [id number] Screw Bn 20mm 6.5mm St Hip Actb Trlg Strl Rpl [id number]+[id number] - [id number] Implanted:Qty: 1 on 11/09/2023 by German Ramirez MD at [facility] Screw Left: Hip [employer] 10/21/2029 [id number] / / [id number] Screw Bn 50mm 6.5mm St Hip Trlg Strl Rpl 198270 - [id number] Implanted:Qty: 1 on 11/09/2023 by German Ramirez MD at [facility] Screw Left: Hip [employer] 08/14/2033 [id number] / / [id number] Screw Bn 15mm 6.5mm St Hip Actb Trlg Strl Rpl [id number]+[id number] - [id number] Implanted:Qty: 1 on 11/09/2023 by German Ramirez MD at [facility] Screw Left: Hip [employer] 03/28/2033 [id number] / / [id number] Screw Bn 15mm 6.5mm St Hip Actb Trlg Strl Rpl [id number] - [id number] Implanted:Qty: 1 on 11/09/2023 by German Ramirez MD at [facility] Screw Left: Hip [employer] 03/24/2033 [id number] / / [id number] Explanted Type Area Receiving Supervisor Device Identifier Shelf Expiration Date Model / Serial / Lot G7 Acetabular System Explanted:Qty: 1 on 10/15/2023 by Wilfredo Keen DO at [facility] Orthopedic Implant Left: Hip [employer] 06/12/2026 [id number] / NA / [id number] 4.5mm Non-Self Tapping Cortical Screws Explanted:Qty: 1 on 10/15/2023 by Wilfredo Keen DO at [facility] Screw Left: Hip [employer] 08/24/2032 4845-14 / NA / NA Procedures Procedure Name Priority Date/Time Associated Diagnosis Comments URIC ACID Routine 01/09/2025 6:40 AM EDT Hypothyroidism, unspecified Primary osteoarthritis, left ankle and foot T3, FREE Routine 01/09/2025 6:40 AM EDT Hypothyroidism, unspecified Primary osteoarthritis, left ankle and foot THYROID PROFILE INCLUDES TSH FT4 Routine 01/09/2025 6:40 AM EDT Hypothyroidism, unspecified Primary osteoarthritis, left ankle and foot from Last 3 Months Results * Thyroid profile includes TSH FT4 (01/09/2025 6:40 AM EDT) FREE T4 1.03 0.61 - 1.60 ng/dL 01/09/2025 11:[address] [facility] TSH 1.19 0.49 - 4.67 uIU/mL 01/09/2025 11:[address] [facility] Blood Venous blood / Unknown Venipuncture / Unknown 01/09/2025 6:40 AM EDT 01/09/2025 6:40 AM EDT us Sam Garcia MD LAB BLOOD ORDERABLES Final Resul t [facility] [address] [place] [address], * (ABNORMAL) Uric acid (01/09/2025 6:40 AM EDT) URIC ACID 8.8(H) 2.6 - 7.2 mg/dL 01/09/2025 11:[address] [facility] Blood Venous blood / Unknown Venipuncture / Unknown 01/09/2025 6:40 AM EDT 01/09/2025 6:40 AM EDT us Sam Garcia MD LAB BLOOD ORDERABLES Final Resul t [facility] [address] [place] [address], * T3, free (01/09/2025 6:40 AM EDT) FREE T3 3.18 2.50 - 3.90 pg/mL 01/09/2025 11:[address] [facility] Blood Venous blood / Unknown Venipuncture / Unknown 01/09/2025 6:40 AM EDT 01/09/2025 6:40 AM EDT us Sam Garcia MD LAB BLOOD ORDERABLES Final Resul t [facility] [address] [place] [address], from Last 3 Months Insurance [facility] MEDICAID Advance Directives * Full Code (Latest Code Status on File) Date Activated Date Inactivated Comments 11/07/2023 1:20 PM 11/14/2023 4:39 PM * Full Code Date Activated Date Inactivated Comments 10/15/2023 7:18 AM 10/17/2023 3:35 PM Care Teams Merchandiser Retail Representative Relationship Specialty Start Date End Date Sam Garcia MD PCP - General Family Medicine 06/30/24
--- OUTSIDE RECORDS SUMMARY | 2025-03-02 10:33 | XMS_ITS | Encounter Summary ---
Author Organization [facility] Address [address] [place] [address] Care Team Providers Care Plant And Instrument Engineer Name Role Phone Sam Garcia MD Primary Care Provider [phone] Reason for Visit * Reason Comments Med Refill Encounter Details Date Type Department Care Team ([facility] Contact Info) Description 04/02[facility] [address] [place] [address] Sam Garcia MD [address] [place] [address] Essential hypertension, benign Social History Tobacco Use Types Packs/Day Years [...] Upcoming Encounters Date Type Department Care Team ([facility] Contact Info) Description 03/27/2025 8:30 AM EDT Office Visit [facility] [address] [place] [place] [address] Nola Knight PA [address] [place] [address] [place] [address] 06/07/2025 8:00 AM EDT Office Visit [facility] [address] [place] [phone] Sam Garcia MD [address] [place] [address] documented as of this encounter Visit Diagnoses Diagnosis Essential hypertension, benign Essential hypertension, benign documented in this encounter Care Teams Plant And Instrument Engineer Relationship Specialty Start Date End Date Sam Garcia MD [address] [place] [address] PCP - General Family Medicine 09/14/23 documented as of this encounter
--- OUTSIDE RECORDS SUMMARY | 2025-03-02 10:33 | XMS_ITS | Encounter Summary ---
Author Organization [employer] Address [id number] [address] [place] [address] Care Team Providers Care Automatic Thread Winder Name Role Phone Sam Garcia MD Primary Care Provider [phone] Encounter Details Date Type Department Care Team (Late st Contact Info) Description 11/12/2023 Orders Only [facility]Tra[facility] Adult Re[facility] [address] [place] [address] Tia Collins, ADRIENNE S/P revision of total hip (Primary Dx) Social History Tobacco Use Types Packs/Day Years Used Date Smoking Tobacco: Former Cigarettes Q uit: 2013 Smokeless Tobacco: Never Alcohol Use Standard Drinks/Week Comments Yes 14 (1 standard drink = 0.6 oz pu re alcohol) [facility] Utilities Answer Date Recorded In the past [...] got money to buy more. Never True 11/07/2023 Within the past 12 months th e food we bought just didn't last and we didn't have money to get more. Never True 11/07/2023 Purpose - Life Answer Date Recorded Purpose [...] as of this encounter Results * X-ray bone length study (11/24/2023 1:08 PM EDT) Anatomical Region Laterality Modality Hip, Femur, Lower Leg Bilateral Computed R adiography 11/30/2023 9:25 AM EDT Narrative 11/30/2023 9:32 AM EDT CLINICAL INFORMATION:S/P revision of total hip . Mechanical: Quincy and leg length. COMPARISON: None. PROCEDURE: AP [...] Lan Claire MD on 11/30/2023 9:32 AM Procedure Note Lan Claire MD - 11/30/2023 CLINICAL INFORMATION:S/P revision of total hip . Mechanical: Quincy and leglength. COMPARISON: None. PROCEDURE: AP upright scanogram of the bilateral lower extremities wasobtained. Examination performed for evaluation of alignment. IMPRESSION: * Bilateral hip arthroplasties are present. Fracture lucency remainsvisualized on the left with cerclage wires. Degenerative changes of theknee joints. * There is 2 degrees varus alignment of the right knee. There is 3degrees varus alignment of the left knee. Left ankle tibiotalararthroplasty. * Right lower extremity measures 78.8 cm. Left lower extremity cadwxjnw23.0 cm. Finalized by Lan Claire MD on 11/30/2023 9:32 AM German Ramirez MD [facility] O RDERABLES Final Result * X-ray hip left 2-3 views with or without pelvis (11/24/2023 1:08 PM EDT) Anatomical Region Laterality Modality Hip Left Computed Radiogr aphy 11/25/2023 5:52 PM EDT Narrative 11/25/2023 5:53 PM EDT Comparison November 08 History: S/P revision of total hip XR HIP LT 2-3 VIEWS W OR WO PELVIS Impression: 1. Prosthesis shows stable cerclage wires transfixing periprosthetic fracture of proximal femur, with otherwise no radiographic evidence for complication. No acute findings. Finalized by Kiran Hdz MD on 11/25/2023 5:53 PM Procedure Note Kiran Hdz MD - 11/25/2023 Comparison November 08 History: S/P revision of total hip XR HIP LT 2-3 VIEWS W OR WO PELVIS Impression: 1. Prosthesis shows stable cerclage wires transfixing periprostheticfracture of proximal femur, with otherwise no radiographic evidence forcomplication. No acute findings. Finalized by Kiran Hdz MD on 11/25/2023 5:53 PM [facility] O RDERABLES Final Result documented in this encounter Visit Diagnoses Diagnosis S/P revision of total hip- Primary S/P revision of total hip documented in this encounter Care Teams Automatic Thread Winder Relationship Specialty Start Date End Date Sam Garcia MD PCP - General Family Medicine 06/30/24 documented as of this encounter
--- OUTSIDE RECORDS SUMMARY | 2025-03-02 10:33 | XMS_ITS | Encounter Summary ---
Author Organization [facility] Address [address] [facility] [place] [address] Care Team Providers Care Health Information Director Name Role Phone Sam Garcia MD Primary Care Provider [phone] Encounter Details Date Type Department Care Team ([facility] Contact Info) Description 07/13/2024 Orders Only [facility] [address] [place] [address] NomsMac MD Social History Tobacco Use Types Packs/Day Years [...] EDT Office Visit [facility] [address] [place] [address] Nola Knight PA [address] [place] [address] 06/07/2025 8:00 AM EDT Office Visit [facility] SH[facility]LENE PERRY [address] [place] [address] Sam Garcia MD [address] [place] [address] documented as of this encounter Procedures Procedure Name Priority Date/Time Associated Diagnosis Comments ELECTROCARDIOGRAM REPORT Routine 024 9:51 AM EST documented in this encounter Results * Electrocardiogram Report (07/12/2024 9:51 AM EST) us Demo Provider [facility]/BEDSIDE ORDERABL ES Final Result documented in this encounter Visit Diagnoses Not on filedocumented in this encounter Care Teams Health Information Director Relationship Specialty Start Date End Date Sam Garcia MD [address] [place] [address] PCP - General Family Medicine 09/14/23 documented as of this encounter
--- OUTSIDE RECORDS SUMMARY | 2025-03-02 10:33 | XMS_ITS | Clinical Summary ---
Author Organization [facility] Address [address] [place] [address] Care Team Providers Care Mechanotherapist Name Role Phone Sam Garcia MD Primary Care Provider [phone] Allergies Active Allergy Reactions Criticality Noted Date Comments Meperidine Hives 05/04/2023 Medications amLODIPine (Norvasc) 10 MG tabletIndications :Essential hypertension, benign Take 1 tablet (10 mg) by mouth Daily 30 tablet 5 024 Active hydroCHLOROthiazi de (HYDRODiuril) 25 MG tabletIndications :Essential hypertension, benign Take 1 tablet (25 mg) by mouth Daily 30 tablet 5 024 Active losartan (Cozaar) 100 MG tabletIndications :Essential hypertension, benign Take 1 tablet (100 mg) by mouth Daily 30 tablet 5 024 Active levothyroxine (Synthroid) 75 MCG tabletIndications :Adult hypothyroidism Take 1 tablet (75 mcg) by mouth in the morning. Take before meals. 30 tablet 3 024 Active budesonide-formot jung (Symbicort) 160-4.5 MCG/ACT inhalerIndication s:Chronic obstructive pulmonary disease, unspecified COPD type (HCC) Inhale 2 puffs in the morning and 2 puffs before bedtime. Rinse mouth with water after use to reduce aftertaste and incidence of candidiasis. Do not swallow.. 1 each 3 025 Active famotidine (Pepcid) 20 MG tabletIndications :LPRD (laryngopharyngea l reflux disease) TAKE 1 TABLET BY MOUTH AT BEDTIME 90 tablet 025 Active aspirin 81 MG EC tablet Take 81 mg by mouth Daily Active allopurinol (Zyloprim) 300 MG tabletIndications :Gouty arthritis Take 1 tablet (300 mg) by mouth Daily 30 tablet 2 025 Active cyclobenzaprine (Flexeril) 10 MG tabletIndications :Degeneration of intervertebral disc of lumbar region with discogenic back pain and lower extremity pain Take 1 tablet (10 mg) by mouth 3 (three) times a day as needed for muscle spasms 60 tablet 2 025 2024 Discontinued allopurinol (Zyloprim) 300 MG tabletIndications :Gouty arthritis Take 1 tablet (300 mg) by mouth Daily 30 tablet 2 025 2024 Discontinued(R eorder) Active Problems Problem Noted Date Diagnosed Date Paroxysmal atrial fibrillation 03/01/2025 Assessment & Plan (03/01/2025 8:47 AM EDT): In NSR and continue medication. General weakness 01/25/2025 Preoperative clearance 01/25/2025 Assessment & Plan (03/01/2025 8:48 AM EDT): Able to proceed with surgery at low risk for complications pending results of echo. Seen by cardiology for clearance. No chest pain or palpitations. History of 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 joint 01/25/2025 Post-menopausal bleeding 01/10/2025 Assessment & Plan (03/01/2025 8:48 AM EDT): Follow with dam attendant. Gouty arthritis 01/10/2025 Assessment & Plan (03/01/2025 8:47 AM EDT): Start allopurinol. Globus sensation 09/05/2024 Assessment & Plan (09/05/2024 12:03 PM EST): C/o tickle in throat but unclear etiology. Possibly related to reflux or COPD. Anesthesia requests direct visualization of vocal cords and refer to ENT. COPD (chronic obstructive pulmonary disease) Assessment & Plan (03/01/2025 8:47 AM EDT): Symptoms stable and continue symbicort. Continue albuterol PRN. Assessment & Plan (01/04/2025 10:01 AM EDT): Symptoms stable and continue symbicort. Continue albuterol PRN. Assessment & Plan (09/05/2024 12:02 PM EST): Symptoms worse and start symbicort. Continue albuterol PRN. Edema of both legs 07/01/2024 Bleeding hemorrhoids 06/21/2024 Assessment & Plan (06/21/2024 5:04 PM EDT): Worsening bleeding and refer to surgeon. Encounter for long-term (current) use of medicat ions 06/21/2024 Status post total hip replacement, left 10/18/19 24 Major depressive disorder, r ecurrent episode, moderate degree 09/24/2023 Assessment & Plan (01/04/2025 10:01 AM EDT): Occasional symptoms but tolerable without medication and monitor. Assessment & Plan (09/05/2024 12:04 PM EST): Feels like doing well without medication and monitor. Assessment & Plan (06/21/2024 5:05 PM EDT): Symptoms much worse and resume paxil. Warned will take 2-3 weeks to notice improvement in mood. Assessment & Plan (09/24/2023 10:19 AM EST): Symptoms stable with paxil and continue. Class 3 severe obesity due t o excess calories with serious comorbidity and body mass index (BMI) of 45.0 to 49.9 in adult 09/24/2023 Assessment & Plan (09/05/2024 12:05 PM EST): Weight loss indicated. Assessment & Plan (06/21/2024 5:04 PM EDT): Patient overweight and difficult time losing weight. [...] month. OARRS reviewed. Continue medications as prescribed. Assessment & Plan (09/24/2023 10:20 AM EST): Patient overweight and difficult time losing weight. [...] month. OARRS reviewed. Continue medications as prescribed. Primary osteoarthritis of left hip 09/09/2023 Assessment & Plan (01/04/2025 10:02 AM EDT): Continued pain and problems walking. Refer to PT. Assessment & Plan (06/21/2024 5:05 PM EDT): Needed revision of replacement and follow with ortho. Assessment & Plan (09/24/2023 10:19 AM EST): Pain worse and not controlled with conservative measures. Will have left hip replacement 10/15. Acquired valgus deformity of foot, left 09/03/19 24 Arthritis of ankle, left 09/03/2023 Essential hypertension, benign 09/03/2023 Assessment & Plan (03/01/2025 8:47 AM EDT): BP controlled and monitor PRN. Assessment & Plan (01/04/2025 10:01 AM EDT): BP elevated today but did not take medication. Monitoring at home and controlled. Continue to monitor PRN. Assessment & Plan (06/21/2024 5:04 PM EDT): BP severely elevated and resume medication. Need to monitor PRN. Assessment & Plan (09/24/2023 10:19 AM EST): BP controlled and monitor PRN. Bone cyst of left ankle 09/03/2023 Chronic gastritis 09/03/2023 Assessment & Plan (09/05/2024 11:59 AM EST): Increased symptoms and possibly causing the tickle in throat. Start omeprazole. Chronic left shoulder pain 09/03/2023 Chronic pain of left ankle 09/03/2023 DDD (degenerative disc disease), lumbar 09/03/19 24 Assessment & Plan (09/05/2024 12:03 PM EST): Worsening pain and start flexeril PRN. Equinus contracture of left ankle 09/03/2023 Generalized anxiety disorder 09/03/2023 Assessment & Plan (01/04/2025 10:01 AM EDT): Occasional symptoms but tolerable without medication and monitor. Assessment & Plan (06/21/2024 5:05 PM EDT): Symptoms much worse and resume paxil. Warned will take 2-3 weeks to notice improvement in mood. Resume buspar and use hydroxyzine PRN. Assessment & Plan (09/24/2023 10:19 AM EST): Symptoms stable with paxil and buspar and continue. Generalized osteoarthrosis, involving multiple s ites 09/03/2023 Adult hypothyroidism 09/03/2023 Posterior tibial tendon dysfunction, left 2023 Prediabetes 09/03/2023 Tear of deltoid ligament of ankle, sequela 09/03 Acquired varus deformity of left foot 09/03/2023 Resolved Problems Problem Noted Date Diagnosed Date Resolved Date Acute postoperative pain of left hip 10/18/2023 06/21/2024 Encounter for preoperative assessment 09/24/2023 06/21/2024 Assessment & Plan (09/24/2023 10:18 AM EST): Able to proceed with upcoming surgery at low risk for complications. History of HTN but controlled with medication. No DM or CAD. Not having chest pain or SOB. Reviewed PAT and normal. Chronic kidney disease, stage III (moderate) 4 09/24/2023 Encounters Date Type Department Care Team Description 03/01/2025 8:15 AM EDT Office Visit [facility] [address] [place] [address] Sam Garcia MD Preoperative clearance (Primary Dx); Post-menopausal bleeding; Essential hypertension, benign ; Paroxysmal atrial fibrillation (HCC); Chronic obstructive pulmonary disease, unspecified COPD type (HCC); Gouty arthritis 03/01/2025 Bamboo flowsheet [facility] [address] [place] [address] Sam Garcia MD 02/20/2025 10:40 AM EDT Consult [facility] [address] [place] [address] Azeem Davidson DO Pre-op examination; Post-menopausal bleeding 02/01/2025 7:00 AM EDT Treatment [facility] [address] [place] [address] Vahe Kyle, PT Primary osteoarthritis of left hip; Status post total hip replacement, left 02/01/2025 Bamboo flowsheet [facility] [address] [place] [address] Vahe Kyle, PT 02/01/2025 Travel 01/25/2025 12:00 PM EDT Evaluation [facility] [address] [place] [address] Vahe Kyle, PT General weakness (Primary Dx); Impaired functional mobility, balance, gait, and endurance; History of 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 joint 01/25/2025 Plan of Care Documentation [facility] [address] [place] [address] 01/25/2025 Bamboo flowsheet [facility] [address] [place] [address] Vahe Kyle, PT 01/25/2025 Travel 01/10/2025 10:30 AM EDT Office Visit [facility] [address] [place] [phone] Azeem Davidson DO Post-menopausal bleeding 01/10/2025 Results Follow-Up [facility] [address] [place] [phone] Sam Garcia MD Gouty arthritis (Primary Dx) 01/10/2025 Bamboo flowsheet [facility] [address] [place] [address] Azeem Davidson DO 01/04/2025 9:15 AM EDT Office Visit [facility] [address] [place] [phone] Sam Garcia MD Essential hypertension, benign (Primary Dx); Major depressive disorder, recurrent episode, moderate degree (HCC); Generalized anxiety disorder ; Chronic obstructive pulmonary disease, unspecified COPD type (HCC); Adult hypothyroidism ; Breast cancer screening by mammogram; Arthritis of ankle, left; Primary osteoarthritis of left hip; Status post total hip replacement, left 01/04/2025 Bamboo flowsheet [facility] [address] [place] [phone] Sam Garcia MD 12/10/2024 Refill [facility] [address] [facility] [address] [place] [phone] Ila Arias MD LPRD (laryngopharyngeal reflux disease) from Last 3 Months Family History Medical History Relation Name Comments Arthritis Father Relation Name Status Comments Father Alive Mother Social History Tobacco Use Types Packs/Day Years Used Date Smoking Tobacco: Former Cigarettes 3 - 2012 Tobacco Cessation:Counseling Given: Not Answered Alcohol Use Standard Drinks/Week Comments Yes 12 [...] Mass Index 41.76 03/01/2025 8:23 AM EDT Plan of Treatment Upcoming Encounters Date Type Department Care Team (Late st Contact Info) Description 03/27/2025 8:30 AM EDT Office Visit [facility] [address] [address] Nola Knight PA [address] [facility] [address] [place], [place] [phone] 06/07/2025 8:00 AM EDT Office Visit [facility] [address] [place] [phone] Sam Garcia MD [address] [place] [address] Health Maintenance Due Date Last Done Comments CT Colonography 1967 FIT 1967 FOBT 1967 Lung Cancer Screening Shared Decision Making 1967 Sigmoidoscopy 1967 Mammogram 2007 FIT-DNA 03/23/2022 03/23/2019 Influenza Vaccine (#1) 2025 03/20/2021, 2018 Cervical Cancer Screening 07/06/2028 HPV/Cotest 07/06/2028 Pap Smear 07/06/2028 07/06/2023 Colonoscopy 02/13/2033 02/13/2023 Colorectal Cancer Screening 02/13/2033 Procedures Procedure Name Priority Date/Time Associated Diagnosis Comments TSH Routine 01/09/2025 6:40 AM EDT T3, FREE Routine 01/09/2025 6:40 AM EDT URIC ACID Routine 01/09/2025 6:40 AM EDT PAP SMEAR Routine 07/06/2023 12:00 AM EST from Last 3 Months or Most Recently Relevant to Health Maintenance Results * (ABNORMAL) Uric acid (01/09/2025 6:40 AM EDT) [facility] URIC ACID 8.8(H) 2.6 - 7.2 mg/dL [facility] Comment: PERFORMED AT [address], [place] [address] 01/09/2025 6:40 AM EDT 01/09/2025 9:54 AM EDT Sam Garcia MD LAB BLOOD ORDERABLES Final Resul t Performing Organization Address [facility] [[email or web address]] de Phone Number [facility] * T3, free (01/09/2025 6:40 AM EDT) FREE T3 3.18 2.50 - 3.90 pg/mL [facility] Comment: PERFORMED AT [place] [address], [place] [address] 01/09/2025 6:40 AM EDT 01/09/2025 9:54 AM EDT us Sam Garcia MD LAB BLOOD ORDERABLES Final Resul t [facility] * TSH (01/09/2025 6:40 AM EDT) FREE T4 1.03 0.61 - 1.60 ng/dL [facility] TSH 1.19 0.49 - 4.67 uIU/mL [facility] Comment: PERFORMED AT [facility] [address],[place] [address] 01/09/2025 6:40 AM EDT 01/09/2025 9:54 AM EDT Sam Garcia MD LAB BLOOD ORDERABLES Final Resul t [facility] * Pap Smear (07/06/2023 12:00 AM EST) Swab Cervical swab / Unknown us Azeem Davidson DO LAB CYTOLOGY ORDERABLES Final Re sult EXTERNAL LAB from Last 3 Months or Most Recently Relevant to Health Maintenance Insurance [employer] MEDICAID [place] Care Teams Mechanotherapist Relationship Specialty Start Date End Date Sam Garcia MD [address] [place] [address] PCP - General Family Medicine 09/14/23
--- OUTSIDE RECORDS SUMMARY | 2025-03-02 10:33 | XMS_ITS | Encounter Summary ---
Author Organization [employer] Address [id number] [address] [place] [place] [address] Care Team Providers Care Vehicle Fare Collector Name Role Phone Sam Garcia MD Primary Care Provider [phone] Encounter Details Date Type Department Care Team (Late st Contact Info) Description 09/26/2024 Orders Only [facility] [address] [place] [address] Tia Collins RN Periprosthetic fracture around internal prosthetic left hip joint, subsequent encounter (Primary Dx); S/P revision of total hip Social History Tobacco Use Types Packs/Day Years Used Date Smoking Tobacco: Former Cigarettes Q uit: 2013 Smokeless Tobacco: Never Alcohol Use Standard Drinks/Week Comments Yes 14 (1 standard drink = 0.6 oz pu re alcohol) [facility] Utilities Answer Date Recorded In the past 12 months has [facility] electric, gas, oil, or water company threatened [...] as of this encounter Plan of Treatment Scheduled Orders Name Type Priority Associated Diagnoses Orde r Schedule X-ray femur left 2+ views Imaging Routine Periprosthetic fracture around internal prosthetic left hip joint, subsequent encounter S/P revision of total hip Expected: 09/26/2024, Expires: 09/26/2025 documented as of this encounter Goals Goal Patient Goal Type Associated Problems Recent Progress Patient-Stated? Author home General Yes Rosa Lipscomb LSW Note: Evaluation of progress towards goal: has been up with therapy discharge planning General Yes Kassie Turner, RN Note: Evaluation of progress towards goal: Discharge plan is home with home health care. documented as of this encounter Visit Diagnoses Diagnosis Periprosthetic fracture around internal prosthetic left hip joint, subsequent encounter- Primary S/P revision of total hip documented in this encounter Care Teams Vehicle Fare Collector Relationship Specialty Start Date End Date Sam Garcia MD PCP - General Family Medicine 06/30/24 documented as of this encounter
--- OUTSIDE RECORDS SUMMARY | 2025-03-02 10:33 | XMS_ITS | Clinical Summary ---
Author Organization [facility] Address [address] [place] [address] Care Team Providers Care Jeeper Operator Name Role Phone Sam Garcia MD Primary Care Provider [phone] Allergies Active Allergy Reactions Criticality Noted Date Comments Meperidine Hives 07/24/2022 (Demerol) Medications amLODIPine (Norvasc) 10 mg tablet Take 1 tablet by mouth in the morning. Active dilTIAZem ER (Tiazac) 240 mg 24 hr capsule Take 1 capsule by mouth in the morning. Active hydroCHLOROthiazi de (HYDRODiuril) 25 mg tablet Take 1 tablet by mouth in the morning. Active levothyroxine (Synthroid, Levoxyl) 75 mcg tablet Take 1 tablet by mouth in the morning. Active PARoxetine (Paxil) 20 mg tablet Take 1 tablet by mouth in the morning. Active losartan (Cozaar) 100 mg tabletIndications :Benign hypertensive heart disease without congestive heart failure Take 1 tablet (100 mg) by mouth in the morning. 90 tablet 3 2 Active Pain Reliever, acetaminophen, 500 mg tablet Take 2 tablets by mouth every 6 (six) hours during the day. 4 Active albuterol 90 mcg/actuation inhaler Inhale 1 puff if needed. 4 Active budesonide-formot Edward (Symbicort) 160-4.5 mcg/actuation inhaler Inhale 2 puffs twice a day. 5 Active busPIRone (Buspar) 5 mg tablet Take 5 mg by mouth if needed each day. Active aspirin 81 mg EC tablet Take 162 mg by mouth in the morning. Active Active Problems Problem Noted Date Diagnosed Date General weakness 01/25/2025 Impaired functional mobility, balance, gait, and endurance 01/25/2025 History of 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 joint 01/25/2025 Gouty arthritis 01/10/2025 Post-menopausal bleeding 01/10/2025 COPD (chronic obstructive pulmonary disease) Globus sensation 09/05/2024 Edema of both legs 07/01/2024 Bleeding hemorrhoids 06/21/2024 Encounter for long-term (current) use of medicat ions 06/21/2024 Morbid obesity with BMI of 40.0-44.9, adult 06/10/2023 Osteoarthritis of left shoulder 01/25/2024 Osteoarthritis of right elbow 01/25/2024 Right elbow pain 12/03/2023 Acute blood loss anemia 11/07/2023 Periprosthetic fracture arou nd internal prosthetic hip joint 11/07/2023 Vitamin D deficiency 11/07/2023 Class 3 severe obesity due t o excess calories with serious comorbidity and body mass index (BMI) of 45.0 to 49.9 in adult 09/24/2023 Major depressive disorder, r ecurrent episode, moderate degree 09/24/2023 Unilateral primary osteoarthritis, left hip 08/24 Acquired valgus deformity of foot, left 09/03/19 Acquired varus deformity of left foot 09/03/2023 Adult hypothyroidism 09/03/2023 Arthritis of ankle, left 09/03/2023 Bone cyst of left ankle 09/03/2023 Chronic gastritis 09/03/2023 Chronic left shoulder pain 09/03/2023 Chronic pain of left ankle 09/03/2023 DDD (degenerative disc disease), lumbar 09/03/19 24 Equinus contracture of left ankle 09/03/2023 Essential hypertension, benign 09/03/2023 Generalized anxiety disorder 09/03/2023 Generalized osteoarthrosis, involving multiple s ites 09/03/2023 Posterior tibial tendon dysfunction, left 2023 Prediabetes 09/03/2023 Tear of deltoid ligament of ankle, sequela 09/03 Hypertensive disorder 08/27/2021 Paroxysmal atrial fibrillation 03/19/2020 Encounters Date Type Department Care Team Description 02/13/2025 10:45 AM EDT Office Visit [facility] [address] [place] [phone] Noble Aly MD Preop cardiovascular exam (Primary Dx); PAF (paroxysmal atrial fibrillation) (CMS/HCC); Primary hypertension; Shortness of breath from Last 3 Months Family History Medical History Relation Name Comments Heart attack Father Hypertension Mother Relation Name Status Comments Father Alive Mother Social History Tobacco Use Types Packs/Day Years Used Date Smoking Tobacco: Former Cigarettes Passive Smoke Exposure: Past Smokeless Tobacco: Never Tobacco Cessation:Counseling Given: Not Answered Alcohol Use Standard Drinks/Week Comments Yes 0 (1 standard drink = 0.6 oz pur e alcohol) occasional [place] [employer] Answer Date Rec orded [...] EDT Inhaled Oxygen Concentration - - Weight 103 kg (226 lb) 07/24/2022 2:26 PM EST Height 154.9 cm (5' 1 ) 02/13/2025 11:18 AM EDT Body Mass Index 42.7 07/24/2022 2:26 PM EST Plan of Treatment Health Maintenance Due Date Last Done Comments CT Colonography 1967 Colonoscopy 1967 Diabetes: Hemoglobin A1C 1967 FIT-DNA 1967 FOBT 1967 Sigmoidoscopy 1967 Depression Screening 1979 HPV/Cotest 1997 Mammogram 2007 Colorectal Cancer Screening 03/23/2020 FIT 03/23/2020 03/23/2019 COVID-19 Vaccine (2023-09 5 season) 2024 03/20/2021, 02/26/2021 Hepatitis B Vaccines (2 of 3 - Hep B Twinrix 3-dose series) 12/15/2024 11/17/2024 Zoster Vaccines (2 of 2) 01/12/2025 11/17/2024 Influenza Vaccine (#1) 2025 1, 05/11/2019 Cervical Cancer Screening 07/06/2026 Pap Smear 07/06/2026 07/06/2023 Adult Tetanus 11/17/2034 11/17/2024 Pneumococcal Vaccine: Pediatrics (0 to 5 Years) and At-Risk Patients (6 to 64 Years) Completed 11/17/2024 HIB Vaccines Aged Out No longer eligi ble based on patient's age to complete this topic HPV Vaccines Aged Out No longer eligi ble based on patient's age to complete this topic IPV Vaccines Aged Out No longer eligi ble based on patient's age to complete this topic Meningococcal B Vaccine Aged Out No l onger eligible based on patient's age to complete this topic Meningococcal Vaccine Aged Out No nancy jordy eligible based on patient's age to complete this topic Rotavirus Vaccines Aged Out No longer eligible based on patient's age to complete this topic Insurance [facility] MEDICAID Care Teams Jeeper Operator Relationship Specialty Start Date End Date Sam Garcia MD [address] [place] [address] PCP - General 07/24/22
--- OUTSIDE RECORDS SUMMARY | 2025-03-02 10:33 | XMS_ITS | Encounter Summary ---
Author Organization [facility] Address [address] [facility] [place] [address] Care Team Providers Care Registered Client Associate Name Role Phone Sam Garcia MD Primary Care Provider [phone] Sam Garcia MD Primary Care Provider [phone] Encounter Details Date Type Department Care Team ( Contact Info) Description 08/04/2023 Clinisync Result Encounter [facility] External Department Unsolicited Provider, Generic External Data Social History Tobacco Use Types Packs/Day Years Used Date Smoking Tobacco: Former Cigarettes Alcohol Use Standard Drinks/Week Comments Yes 12 (1 standard drink = 0.6 oz pu re alcohol) Comments Unknown Sex and Gender Information Value Date Recorded Sex Assigned at Not on file Legal Sex Female 11:21 PM EDT Gender Identity Not on file Sexual Orientation Not on file documented as of this encounter Plan of Treatment Upcoming Encounters Date Type Department Care Team ([facility] Contact Info) Description 03/27/2025 8:30 AM EDT Office Visit [facility] BCP OB [address] [facility] [place] [address] Nola Knight PA [address] [facility] [place] [address] 06/07/2025 8:00 AM EDT Office Visit [facility] SHIRLENE PERRY [address] [place] [address] Sam Garcia MD [address] [place] [address] documented as of this encounter Procedures Procedure Name Priority Date/Time Associated Diagnosis Comments ECG 12-LEAD 08/04/2023 2:10 PM EST documented in this encounter Results * ECG 12-LEAD (08/04/2023 2:10 PM EST) Anatomical Region Laterality Modality Other 08/04/2023 2:10 PM EST Narrative 08/05/2023 7:02 [place] [address] Electrocardiograph Report Signed Patient: DORIS SHEFFIELD MR#: [id number] : 1965 Acct:[id number] Age/Sex: 57 / F ADM Date: 08/04/23 Loc: PST Attending Dr: Johnny Davidson D.O. Ordering Physician: Johnny Davidson D.O. Date of Service: 08/04/23 Procedure(s): ECG 12 lead Accession Number(s): [id number] cc: [facility] Test Date: 2023-08-04 Pat Name: DORIS SHEFFIELD Department: Room: - Gender: Female Package Dyeing Machine Operator: : 1965 Requested By: JOHNNY DAVIDSON Order Number: [id number] Reading MD: JAMAAL MCDERMOTT Measurements Intervals [place] Rate: 100 P: 38 IN: 181 QRS: 59 QRSD: 94 T: 61 QT: 385 QTc: 498 Interpretive Statements SINUS TACHYCARDIA NONSPECIFIC T-WAVE ABNORMALITY ABNORMAL RHYTHM ECG No previous ECG available for comparison Electronically Signed On 08-05-2023 7:02:16 EST by JAMAAL MCDERMOTT Dictated By: Jamaal Mcdermott D.O. Signed By: 08/05/23 0702 DD/ 1410 TD/TT: Radiographer Mammographer: Procedure Note Radiology, Radiologist, MD - 08/05/2023 The [place] [id number] Electrocardiograph Report Signed Patient: DORIS SHEFFIELD AMR#: [id number] : 1965Acct:[id number] Age/Sex: 57 / FADM Date: 08/04/23 Loc: PST Attending Dr: Johnny Davidson D.O. Ordering Physician: Johnny Davidson D.O. Date of Service: 08/04/23 Procedure(s): ECG 12 lead Accession Number(s): [id number] cc: [facility] Test Date: 2023-08-04 Pat Name: DORIS SHEFFIELD Department: Room: - Gender: Female Package Dyeing Machine Operator: : 1965 Requested By: JOHNNY DAVIDSON Order Number: [id number] Reading MD: JAMAAL MCDERMOTT Measurements Intervals [place] Rate: 100 P: 38 IN: 181 QRS: 59 QRSD: 94 T: 61 QT: 385 QTc: 498 Interpretive Statements SINUS TACHYCARDIA NONSPECIFIC T-WAVE ABNORMALITY ABNORMAL RHYTHM ECG No previous ECG available for comparison Electronically Signed On 08-05-2023 7:02:16 EST by JAMAAL MCDERMOTT Dictated By: Jamaal Mcdermott D.O. Signed By:08/05/23 0702 DD/ 1410 TD/TT: Radiographer Mammographer: us Generic External Data Provider [facility] Final Result documented in this encounter Visit Diagnoses Not on filedocumented in this encounter Care Teams Registered Client Associate Relationship Specialty Start Date End Date Sam Garcia MD PCP - General Family Medicine 05/04/23 09/13/23 Sam Garcia MD [address] [place] [address] PCP - General Family Medicine 09/14/23 documented as of this encounter
--- OUTSIDE RECORDS SUMMARY | 2025-03-02 10:33 | XMS_ITS | Encounter Summary ---
Author Organization [facility] Address [address] [place] [address] Care Team Providers Care Director Staffing Name Role Phone Sam Garcia MD Primary Care Provider [phone] Encounter Details Date Type Department Care Team ([facility] Contact Info) Description 01/10/2025 Results [facility] [address] [place] [address] Sam Garcia MD [address] [place] [address] Gouty arthritis (Primary Dx) Social History Tobacco Use Types [...] AM EDT Office Visit [facility] BCP OB [address] [place], [place] [address] [place] [address] Nola Knight PA [address] [place] [address] [place] [address] 06/07/2025 8:00 AM EDT Office Visit [facility] CWM [address] [place] [address] Sam Garcia MD [address] [place] [address] documented as of this encounter Visit Diagnoses Diagnosis Gouty arthritis- Primary Gouty arthropathy, unspecified documented in this encounter Care Teams Director Staffing Relationship Specialty Start Date End Date Sam Garcia MD [address] [place] [address] PCP - General Family Medicine 09/14/23 documented as of this encounter
--- OUTSIDE RECORDS SUMMARY | 2025-03-02 10:33 | XMS_ITS | Encounter Summary ---
Author Organization [facility] Address [address] [facility] [place] [address] Care Team Providers Care Heavy Truck Driver Name Role Phone Sam Garcia MD Primary Care Provider [phone] aSm Garcia MD Primary Care Provider [phone] Encounter Details Date Type Department Care Team [...] Office Visit [facility] BCP OB [address] [place] [phone] Nola Knight PA [address] [facility] [place] [address] 06/07/2025 8:00 AM EDT Office Visit [facility] SHIRLENE PERRY [address] [place] [address] Sam Garcia MD [address] [place] [address] documented as of this encounter Procedures Procedure Name Priority Date/Time Associated Diagnosis Comments XR CHEST 2V 08/04/2023 2:49 PM EST SRMCOH PROTHROMBIN TIME INR W/O COUM Routine 08/04/2023 2:15 PM EST C[facility] APTT Routine 08/04/2023 2:15 PM EST documented in this encounter Results * XR CHEST 2V (08/04/2023 2:49 PM EST) Anatomical Region Laterality Modality Other 08/04/2023 2:49 PM EST Narrative 08/04/2023 2:51 [place] [address] XRay Report Signed Patient: DORIS SHEFFIELD MR#: [id number] : 1965 Acct:[id number] Age/Sex: 57 / F ADM Date: 08/04/23 Loc: [facility] Attending Dr: Azeem Davidson D.O. Ordering Physician: Chary Wilks NP Date of Service: 08/04/23 Procedure(s): XR chest 2V Accession Number(s): [id number] cc: Sam Garcia M.D.; Chary Wilks NP [place] [address] Patient Name: DORIS SHEFFIELD MRN: [facility]:[id number] date: 1965 Sex: F Assigned Patient Location: [facility] Current Patient Location: [facility] Accession/Order Number: [id number] Exam Date: 08/04/2023 14:25 Report Date: 08/04/2023 14:49 At the request of: CHARY WILKS Procedure: XR chest 2V EXAM: XR chest 2V HISTORY: pre-op COMPARISON: None. TECHNIQUE: PA and lateral views of the chest. FINDINGS: The cardiomediastinal silhouette is normal. No focal consolidation is identified. There is no pneumothorax. No pleural effusion is noted. The osseous structures are intact. XR/XR chest 2V IMPRESSION: No acute cardiopulmonary process. Electronically authenticated by: GEORGIA POLLACK Date: 08/04/2023 14:49 Dictated By: Georgia Pollack M.D. Signed By: 08/04/231450 DD/ 48 TD/TT: Sole Dyer: Procedure Note Radiology, Radiologist, - 08/04/2023 [place] [address] XRay Report Signed Patient: DORIS SHEFFIELD AMR#: [id number] : 1965Acct:[id number] Age/Sex: 57 / FADM Date: 08/04/23 Loc: [facility] Attending Dr: Azeem Davidson D.O. Ordering Physician: Chary Wilks NP Date of Service: 08/04/23 Procedure(s): XR chest 2V Accession Number(s): [id number] cc: Sam Garcia M.D.; Chary Wilks NP The [place] [address] Patient Name: DORIS SHEFFIELD MRN: [facility]:[id number] date: 1965 Sex: F Assigned Patient Location: [facility] Current Patient Location: [facility] Accession/Order Number: [id number] Exam Date: 08/04/2023 14:25 Report Date: 08/04/2023 14:49 At the request of: CHARY WILKS Procedure: XR chest 2V EXAM: XR chest 2V HISTORY: pre-op COMPARISON: None. TECHNIQUE: PA and lateral views of the chest. FINDINGS: The cardiomediastinal silhouette is normal. No focal consolidation is identified. There is no pneumothorax. No pleural effusion is noted. The osseous structures are intact. XR/XR chest 2V IMPRESSION: No acute cardiopulmonary process. Electronically authenticated by: GEORGIA POLLACK Date: 08/04/2023 14:49 Dictated By: Georgia Pollack M.D. Signed By:08/04/231450 DD/ 48 TD/TT: Sole Dyer: us Generic External Data Provider [facility] Final Result * [facility]CF APTT (08/04/2023 2:15 PM EST) PARTIAL THROMBOPLASTIN TIME 26.7 22.3 - 36.2 sec TBH 08/04/2023 2:15 PM EST 08/04/2023 2:17 PM EST Narrative [facility] - 08/04/2023 2:54 PM EST us Azeem Lety DO [facility] Final Result [facility] * SRMCOH PROTHROMBIN TIME INR W/O COUM (08/04/2023 2:15 PM EST) PROTHROMBIN TIME 10.2 9.0 - 11.6 sec TBH TBH INR 0.96 TBH Comment: DESIRED INR: 2.0-3.0 CONDITIONS NOT LISTED BELOW 2.5-3.5 FOR PROSTHETIC HEART VALVE REPLACEMENT 2.5-3.5 RECURRENT THROMBOSIS 08/04/2023 2:15 PM EST 08/04/2023 2:17 PM EST Narrative [facility] - 08/04/2023 2:54 PM EST us Azeem Lety DO [facility] Final Result [facility] documented in this encounter Visit Diagnoses Not on filedocumented in this encounter Care Teams Heavy Truck Driver Relationship Specialty Start Date End Date Sam Garcia MD PCP - General Family Medicine 05/04/23 09/13/23 Sam Garcia MD [address] [place] [address] PCP - General Family Medicine 09/14/23 documented as of this encounter
[2025-03-02 11:25] LABS: Hematocrit 31.1 % (36.0-48.0); Hemoglobin 10.1 g/dL (12.0-16.0); Immature Granulocytes Abs Auto 0.09 10^3/uL (0.00-0.03); Immature Granulocytes Pct Auto 0.8 % (0.0-0.5); Lymphocytes Absolute Auto 1.3 10^3/uL (1.2-3.8); Mean Corpuscular HGB Conc 32.5 g/dL (29.9-35.2); Mean Corpuscular Hemoglobin 26.6 pg (26.7-34.0); Mean Corpuscular Volume 82.1 fL (81.0-99.0); Platelet Count 390 10^3/uL (150-450); Red Blood Count 3.79 10^6/uL (4.20-5.40); White Blood Count 11.8 10^3/uL (4.0-11.0)
[2025-03-02 11:35] LABS: Anion Gap 16.9; Blood Urea Nitrogen 6.0 mg/dL (7.0-18.0); Calcium 8.5 mg/dL (8.5-10.1); Carbon Dioxide 23.7 mmol/L (21.0-32.0); Chloride 95 mmol/L (98-107); Estimated GFR (African America >60 (>=60 mL/min/1.73m^2); Estimated GFR (Non-African Ame >60 (>=60 mL/min/1.73m^2); Glucose 157 mg/dL (74-106); Potassium 3.6 mmol/L (3.5-5.1); Sodium 132 mmol/L (136-145)
[2025-03-02 11:40] LABS: INR 1.08; Partial Thromboplastin Time 25.8 sec (22.3-36.2); Prothrombin Time 11.4 sec (9.0-11.6)
== END 2025-03-02 10:29 | disposition home or self-care (01) ==
LOC: PST 10:30
PROVIDERS: PCP Family Medicine; Visit Provider Obstetrics & Gynecology
DX: Z01.812 Encounter for preprocedural laboratory examination (principal); N95.0 Postmenopausal bleeding
CPT/HCPCS: 36415; 71046; 80048; 85025; 85610; 85730

== ENCOUNTER 2025-03-09 07:14 | Outpatient (OUT) | payer MEDICAID, SELFPAY ==
--- OUTSIDE RECORDS SUMMARY | 2017-07-15 09:49 | XMS_ITS | Continuity of Care Document ---
Author Organization [facility] Address [address] [place] [address] ELIAS Martinez [address] Phone Care Team Providers Care Foreign Policy Officer Name Role Phone Unavailable Unavailable Unavailable Allergies, [...] Diagnoses Date Provider Providers Copied on Encounter [facility], [address] [place] [address], [id number], tel:[phone] [facility] Kyle No Information 7 No Information ESTABLISHED OFFICE/OUTPA TIENT VISIT [facility], [address] [place] [address], [id number], tel:[phone] [facility] Lab results (chief complaint) Mixed hyperlipidemiaEss ential hypertensionBody mass index (BMI) 40.0-44.9, adultMorbid obesity with BMI of 40.0-44.9, adultAlcohol abuse Sabrina DO Kunz. [address] [place] [address], [id number], [place]. tel:[phone] HEALTH RISK ASSESSMENT TEST [facility], [address] [place] [address], [id number], [place] tel:[phone] [facility] new patient (chief complaint) Body mass index [...] Record Payers Payer name Insurance type Covered constitution party ID Authoriza tion(s) [facility] [id number] Sliding Fee Scale A Social History Type [...] nt Illness Lab results Pt returns to [facility] for review of lab results from 10/20/16. [...] patient with [facility]. Just moved here from [place]. Hx HTN, Right ORIF, OA, Anxiety. I'm [...] on availability.FOLLOW UP appt with DERM AND PRODUCTION GRIP specialist(s) as directed. Patient to go to the nearest ER and/or call 911 if symptoms worsen. Med(s) and potential side effects discussed with patient. Risks of noncompliance with meds and treatment plan to include but not be limited to and disability. Patient verbalized understanding and agrees with plan. Related to Essential hypertension WEIGHT LOSS Related to Mixed hyperlipidemia Giving encouragement to exercise Related to Body mass index (BMI) 40.0-44.9, adult Lifestyle education regarding di et Related to Body mass index (BMI) 40.0-44.9, adult f/u with Optometry. f/u with Dentistry. Eat heart healthy foods that includes fresh fruits and veggies. Include lean meat and high sources of Protein. Get daily exercise that includes cardio, flexibility, and strength. Stay current on Pap/Pelvic/ and Mammo annually. vu Related to Annual physical exam Dietary management e ducation, guidance, and counseling Related to Body mass index (BMI) 39.0-39.9, adult Prescribed activity/ exercise education Related to Body [...]
--- OUTSIDE RECORDS SUMMARY | 2025-03-01 08:15 | XMS_ITS | Encounter Summary ---
Author Organization [facility] Address [address] [place] [address] Care Team Providers Care Web Ui Designer Name Role Phone Sam Garcia MD Primary Care Provider [phone] Reason for Visit * Reason Comments Follow-up Surgical clearance d & c possible hyst Encounter Details Date Type Department Care Team ( Contact Info) Description 03/01/2025 8:15 AM EDT Office Visit [facility] [address] [place] [address] Sam Garcia MD [address] [place] [address] Preoperative clearance (Primary Dx); Post-menopausal bleeding; Essential [...] EDTAssociated Problem(s): Post- menopausal bleeding Follow with home care assistant. * Sam Garcia MD - 03/01/2025 8:47 [...] EDTAssociated Problem(s): COPD (chronic obstructive pulmonary disease) ([facility]) Symptoms stable and continue symbicort. Continue albuterol [...] Continue albuterol PRN. Post-menopausal bleeding Follow with home care assistant. Gouty arthritis Start allopurinol. Relevant Medications allopurinol [...] EDT Office Visit [facility] [address] [facility] [place] [address] Nola Knight PA [address] [facility] [place] [address] 06/07/2025 8:00 AM EDT Office Visit [facility] [address] [place] [address] Sam Garcia MD [address] [place] [address] documented as of this encounter Visit Diagnoses Diagnosis Preoperative clearance- Primary Unspecified pre-operative examination Post-menopausal bleeding Postmenopausal bleeding Essential hypertension, benign Essential hypertension, benign Paroxysmal atrial fibrillation (HCC) Atrial fibrillation Chronic obstructive pulmonary disease, unspecified COPD type (HCC) Gouty arthritis Gouty arthropathy, unspecified documented in this encounter Care Teams Web Ui Designer Relationship Specialty Start Date End Date Sam Garcia MD [address] [place] [address] PCP - General Family Medicine 09/14/23 documented as of this encounter
--- OUTSIDE RECORDS SUMMARY | 2025-03-09 07:16 | XMS_ITS | Encounter Summary ---
Author Organization [facility] Address [address] [place] [address] Care Team Providers Care Heating Equipment Installer Name Role Phone Sam Garcia MD Primary Care Provider [phone] Reason for Visit * Reason Comments Med Refill Encounter Details Date Type Department Care Team ([facility] Contact Info) Description 04/02[facility]24 [facility] [address] [place] [address] Sam Garcia MD [address] [place] [address] Essential hypertension, benign Social History Tobacco Use [...] Upcoming Encounters Date Type Department Care Team ([facility] Contact Info) Description 03/27/2025 8:30 AM EDT Office Visit NOMS [address] [place] [address] Nola Knight PA [address] [place] [address] [place] [address] 06/07/2025 8:00 AM EDT Office Visit [facility] CWM [address] [place] [address] Sam Garcia MD [address] [place] [address] documented as of this encounter Visit Diagnoses Diagnosis Essential hypertension, benign Essential hypertension, benign documented in this encounter Care Teams Heating Equipment Installer Relationship Specialty Start Date End Date Sam Garcia MD [address] [place] [address] PCP - General Family Medicine 09/14/23 documented as of this encounter
--- OUTSIDE RECORDS SUMMARY | 2025-03-09 07:16 | XMS_ITS | Encounter Summary ---
Author Organization [facility] Address [address] [facility] [place] [address] Care Team Providers Care Silver Steward Name Role Phone Sam Garcia MD Primary Care Provider [phone] Encounter Details Date Type Department Care Team ([facility] Contact Info) Description 07/12/2024 Orders Only [facility] CWM FM [address] [place] [phone] Onofre Alston MD [address] [place], [place] [address] Social History Tobacco Use Types Packs/Day Years [...] Upcoming Encounters Date Type Department Care Team ([facility] Contact Info) Description 03/27/2025 8:30 AM EDT Office Visit [facility] [address] [facility] [place] [address] Nola Knight PA [address] [place] [address] 06/07/2025 8:00 AM EDT Office Visit [facility] CWM [address] [place] [address] Sam Garcia MD [address] [place] [address] documented as of this encounter [...] on filedocumented in this encounter Care Teams Silver Steward Relationship Specialty Start Date End Date Sam Garcia MD [address] [place] [address] PCP - General Family Medicine 09/14/23 documented as of this encounter
--- OUTSIDE RECORDS SUMMARY | 2025-03-09 07:16 | XMS_ITS | Encounter Summary ---
Author Organization [facility] Address [address] [place] [address] Care Team Providers Care Tap Puller Name Role Phone Sam Garcia MD Primary Care Provider [phone] Sam Garcia MD Primary Care Provider [phone] Encounter Details Date Type Department Care Team [...] Upcoming Encounters Date Type Department Care Team ([facility] Contact Info) Description 03/27/2025 8:30 AM EDT Office Visit [facility] BCP OB [address] [facility] [place] [phone] Nola Knight PA [address] [facility] [place] [address] 06/07/2025 8:00 AM EDT Office Visit [facility] SHIRLENE PERRY [address] [place] [address] Sam Garcia MD [address] [place] [address] documented as of this encounter Procedures Procedure [...] PM EST Narrative 08/04/2023 2:51 [place] [address] XRay Report Signed Patient: DORIS SHEFFIELD MR#: [id number] : 1965 Acct:[id number] Age/Sex: 57 / F ADM Date: 08/04/23 Loc: [facility] Attending Dr: Azeem Davidson D.O. Ordering Physician: Chary Wilks NP Date of Service: 08/04/23 Procedure(s): XR chest 2V Accession Number(s): [id number] cc: Sam Garcia M.D.; Chary Wilks NP [place] [address] Patient Name: DORIS SHEFFIELD MRN: [facility]:[id number] date: 1965 Sex: F Assigned Patient Location: [facility] Current Patient Location: [facility] Accession/Order Number: [id number] Exam Date: 08/04/2023 14:25 Report Date: 08/04/2023 [...] M.D. Signed By: 08/04/231450 DD/ 48 TD/TT: Mortarman: Procedure Note Radiology, Radiologist, - 08/04/2023 [place] [address] XRay Report Signed Patient: DORIS SHEFFIELD AMR#: [id number] : 1965Acct:[id number] Age/Sex: 57 / FADM Date: 08/04/23 Loc: [facility] Attending Dr: Azeem Davidson D.O. Ordering Physician: Chary Wilks NP Date of Service: 08/04/23 Procedure(s): XR chest 2V Accession Number(s): [id number] cc: Sam Garcia M.D.; Chary Wilks NP The [place] [address] Patient Name: DORIS SHEFFIELD MRN: [facility]:[id number] date: 1965 Sex: F Assigned Patient Location: [facility] Current Patient Location: [facility] Accession/Order Number: [id number] Exam Date: 08/04/2023 14:25 Report Date: 08/04/2023 [...] Pollack M.D. Signed By:08/04/231450 DD/ 48 TD/TT: Mortarman: us Generic External Data Provider [facility] Final Result * [facility] APTT (08/04/2023 2:15 PM EST) PARTIAL THROMBOPLASTIN TIME 26.7 22.3 - 36.2 sec TBH 08/04/2023 2:15 PM EST 08/04/2023 2:17 PM EST Narrative [facility] - 08/04/2023 2:54 PM EST us Azeem Lety DO [facility] Final Result [facility] * SRMCOH PROTHROMBIN TIME INR W/O COUM [...] on filedocumented in this encounter Care Teams Tap Puller Relationship Specialty Start Date End Date Sam Garcia MD PCP - General Family Medicine 05/04/23 09/13/23 Sam Garcia MD [address] [place] [address] PCP - General Family Medicine 09/14/23 documented as of this encounter
--- OUTSIDE RECORDS SUMMARY | 2025-03-09 07:16 | XMS_ITS | Encounter Summary ---
Author Organization [facility] Address [address] [place] [address] Care Team Providers Care Soft Iron Inspector Name Role Phone Sam Garcia MD Primary Care Provider [phone] Encounter Details Date Type Department Care Team ([facility] Contact Info) Description 01/10/2025 [facility] [address] [place] [address] Sam Garcia MD [address] [place] [address] Gouty arthritis (Primary Dx) Social History Tobacco [...] AM EDT Office Visit [facility] BCP OB [address] [place], [place] [address] [place] [address] Nola Knight PA [address] [place] [address] [place] [address] 06/07/2025 8:00 AM EDT Office Visit [facility] CWM [address] [place] [address] Sam Garcia MD [address] [place] [address] documented as of this encounter Visit Diagnoses Diagnosis Gouty arthritis- Primary Gouty arthropathy, unspecified documented in this encounter Care Teams Soft Iron Inspector Relationship Specialty Start Date End Date Sam Garcia MD [address] [place] [address] PCP - General Family Medicine 09/14/23 documented as of this encounter
--- OUTSIDE RECORDS SUMMARY | 2025-03-09 07:16 | XMS_ITS | Encounter Summary ---
Author Organization [facility] Address [address] [facility] [place] [address] Care Team Providers Care In Tube Conversion Technician Name Role Phone Sam Garcia MD Primary Care Provider [phone] Encounter Details Date Type Department Care Team ( Contact Info) Description 11/19/2023 [facility] [address] [place] [address] Sam Garcia MD [address] [place] [address] Social History Tobacco Use Types Packs/Day Years [...] EDT Office Visit [facility]CP OB [address] [facility] [place] [address] Nola Knight PA [address] [place] [address] 06/07/2025 8:00 AM EDT Office Visit [facility] CWM FM [address] [place] [address] Sam Garcia MD [address] [place] [address] documented as of this encounter Procedures Procedure Name Priority Date/Time Associated Diagnosis Comments SCANNED LABS Routine 11/19/2023 8:49 AM EDT documented in this encounter Results * SCANNED LABS (11/19/2023 8:49 AM EDT) Sam Garcia MD LAB CHG PERFORMABLES Final Resul t documented in this encounter Visit Diagnoses Not on filedocumented in this encounter Care Teams In Tube Conversion Technician Relationship Specialty Start Date End Date Sam Garcia MD [address] [place] [address] PCP - General Family Medicine 09/14/23 documented as of this encounter
--- OUTSIDE RECORDS SUMMARY | 2025-03-09 07:16 | XMS_ITS | Clinical Summary ---
Author Organization [employer] Address [facility] [place] [id number] [address] [place] [address] Care Team Providers Care Knife Grinder Name Role Phone Sam Garcia MD Primary Care Provider [phone] Allergies Active Allergy Reactions Criticality Noted Date [...] Adult Reconstruction [address] [place] [address] German Ramirez MD from Last [...] drink = 0.6 oz pu re alcohol) [facility] Utilities Answer Date Recorded In the [...] health care. Medical Devices Implanted Type Area Tractor Mechanic Device Identifier Shelf Expiration Date Model / Serial / Lot Assembly Cblpn 914mm 1.8mm Cbl Rd Cocr Crlge Strl Rpl [id number] - [id number] Implanted:Qty: 2 on 11/09/2023 by German Ramirez MD at [facility] Implant Cable Left: Hip [employer] 05/23/2033-2 8 [id number] Assembly Cblpn 914mm 1.8mm C[address] Cocr Crlge Strl Rpl [id number] - [id number] Implanted:Qty: 1 on 11/09/2023 by German Ramirez MD at [facility] Implant Cable Left: Hip [employer] 03/15/2033-2 8 [id number] Assembly Cblpn 914mm 1.8mm [address] Cocr Crlge Strl Rpl [id number] - [id number] Implanted:Qty: 1 on 11/09/2023 by German Ramirez MD at [facility] Implant Cable Left: Hip [employer] 07/11/2033-2 [id number] Shell Actb 44mm Hip 3 Hl Clr Cd [place] G7 A Hmsphr - Sna - [id number] Implanted:Qty: 1 on 10/15/2023 by Wilfredo Keen DO at [facility] Orthopedic Implant Left: Hip [employer] 02/14/2028 [id number] / NA / [id number] Stem Fem 137d 1 08/06 37mm Fitmore Protasul-64 Hip Rgh Blast - Sna - [id number] Implanted:Qty: 1 on 10/15/2023 by Wilfredo Keen DO at [facility] Orthopedic Implant Left: Hip [employer] 05/23/2032 01.59332.201 / NA / [id number] Head Fem 28mm +3.5mm 08/06 Lg Trlg It Contin Blx D Hip Actb - Sna - [id number] Implanted:Qty: 1 on 10/15/2023 by Wilfredo Keen DO at [facility] Orthopedic Implant Left: Hip [employer] 05/20/2031 [id number] / NA / [id number] Acetabular Systemvivacit-E Highly Crosslinked Polyethylene Liner High Wall Implanted:Qty: 1 on 10/15/2023 by Wilfredo Keen DO at [facility] Orthopedic Implant Left: Hip [employer] 07/07/2026 [id number] / NA / [id number] Biolox Delta Modular Ceramic Head Implanted:Qty: 1 on 11/09/2023 by German Ramirez MD at [facility] Orthopedic Implant Left: Hip Biomet 07/28/2032 [id number] / / [id number] Shell Actb 48mm Hip Mlhl Clr Cd [place] G7 C Hmsphr - [id number] Implanted:Qty: 1 on 11/09/2023 by German Ramirez MD at [facility] Orthopedic Implant Left: Hip [employer] 10/14/2028 [id number] / / [id number] Amanda Modular Revision Hip System Sts Distal Stem Implanted:Qty: 1 on 11/09/2023 by German Ramirez MD at [facility] Orthopedic Implant Left: Hip [employer]omet 03/13/2033 [id number] / / [id number] Liner Actb 32mm C Vivacit-E Lum G7 Hip Strl Lf - [id number] Implanted:Qty: 1 on 11/09/2023 by German Ramirez MD at [facility] Orthopedic Implant Left: Hip [employer] 08/08/2028 [id number] / / [id number] Body Cone Hip Fem C Std Os 60mm Amanda Ti Strl Mdlr Rev Sys Rpl 303 - [id number] Implanted:Qty: 1 on 11/09/2023 by German Ramirez MD at [facility] Orthopedic Implant Left: Hip [employer] 09/10/2032303 / / [id number] Screw Bn 25mm 6.5mm St Hip Trlg Strl Rpl 6937973+[id number]+ [id number] - Sna - [id number] Implanted:Qty: 1 on 10/15/2023 by Wilfredo Keen DO at [facility] Screw Left: Hip [employer] 09/29/2032 [id number] / NA / [id number] Screw Bn 30mm 6.5mm St Actb Giovani Trlg Strl Rpl [id number] +[id number] - Sna - [id number] Implanted:Qty: 1 on 10/15/2023 by Wilfredo Keen DO at [facility] Screw Left: Hip [employer] 04/04/2033 [id number] / NA / [id number] Screw Bn 20mm 6.5mm St Hip Actb Trlg Strl Rpl [id number]+9 [id number] - [id number] Implanted:Qty: 1 on 11/09/2023 by German Ramirez MD at [facility] Screw Left: Hip [employer] 10/21/2029 [id number] / / [id number] Screw Bn 50mm 6.5mm St Hip Trlg Strl Rpl 455968 - [id number] Implanted:Qty: 1 on 11/09/2023 by German Ramirez MD at [facility] Screw Left: Hip [employer] 08/14/2033 [id number] / / [id number] Screw Bn 15mm 6.5mm St Hip Actb Trlg Strl Rpl 089078+[id number] - [id number] Implanted:Qty: 1 on 11/09/2023 by German Ramirez MD at [facility] Screw Left: Hip [employer] 03/28/2033 [id number] / / [id number] Screw Bn 15mm 6.5mm St Hip Actb Trlg Strl Rpl 000370+[id number] - [id number] Implanted:Qty: 1 on 11/09/2023 by German Ramirez MD at [facility] Screw Left: Hip [employer] 03/24/2033 [id number] / / [id number] Explanted Type Area Tractor Mechanic Device Identifier Shelf Expiration Date Model / Serial / Lot G7 Acetabular System Explanted:Qty: 1 on 10/15/2023 by Wilfredo Keen DO at [facility] Orthopedic Implant Left: Hip [employer] 06/12/2026 [id number] / NA / [id number] 4.5mm Non-Self Tapping Cortical Screws Explanted:Qty: 1 on 10/15/2023 by Wilfredo Keen DO at [facility] Screw Left: Hip [employer] 08/24/2032 4845-14 [...] - 1.60 ng/dL 01/09/2025 11:11 AM EDT [facility] TSH 1.19 0.49 - 4.67 uIU/mL 01/09/2025 11:11 AM EDT [facility] Blood Venous blood / Unknown Venipuncture / Unknown 01/09/2025 6:40 AM EDT 01/09/2025 6:40 AM EDT us Sam Garcia MD LAB BLOOD ORDERABLES Final Resul t [facility] [address] [place] [address], * (ABNORMAL) Uric acid (01/09/2025 6:40 AM EDT) URIC ACID 8.8(H) 2.6 - 7.2 mg/dL 01/09/2025 11:01 AM EDT [facility] Blood Venous blood / Unknown Venipuncture / Unknown 01/09/2025 6:40 AM EDT 01/09/2025 6:40 AM EDT us Sam Garcia MD LAB BLOOD ORDERABLES Final Resul t [facility] [address] [place] [address], * T3, free (01/09/2025 6:40 AM EDT) FREE T3 3.18 2.50 - 3.90 pg/mL 01/09/2025 11:11 AM EDT [facility] Blood Venous blood / Unknown Venipuncture / Unknown 01/09/2025 6:40 AM EDT 01/09/2025 6:40 AM EDT us Sam Garcia MD LAB BLOOD ORDERABLES Final Resul t [facility] [address] [place] [address], from Last 3 Months Insurance [facility] MEDICAID Advance Directives * Full Code (Latest Code Status on File) Date Activated Date Inactivated Comments 11/07/2023 1:20 PM 11/14/2023 4:39 PM * Full Code Date Activated Date Inactivated Comments 10/15/2023 7:18 AM 10/17/2023 3:35 PM Care Teams Knife Grinder Relationship Specialty Start Date End Date Sam Garcia MD PCP - General Family Medicine 06/30/24
--- OUTSIDE RECORDS SUMMARY | 2025-03-09 07:16 | XMS_ITS | Encounter Summary ---
Author Organization [employer] Address [id number] [address] 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, subsequent encounter (Primary Dx); S/P revision of total hip Social History Tobacco Use Types Packs/Day Years Used Date Smoking Tobacco: Former Cigarettes Q uit: 2013 Smokeless Tobacco: Never Alcohol Use Standard Drinks/Week Comments Yes 14 (1 standard drink = 0.6 oz pu re alcohol) [facility] Utilities Answer Date Recorded In the past 12 months has [facility] electric, gas, oil, or water company [...] hip documented in this encounter Care Teams Hematology Supervisor Relationship Specialty Start Date End Date Sam Garcia MD PCP - General Family Medicine 06/30/24 documented as of this encounter
--- OUTSIDE RECORDS SUMMARY | 2025-03-09 07:16 | XMS_ITS | Encounter Summary ---
Author Organization [facility] Address [address] [facility] [place] [address] Care Team Providers Care Typist Name Role Phone Sam Garcia MD Primary Care Provider [phone] Encounter Details Date Type Department Care Team ([facility] Contact Info) Description 07/13/2024 Orders Only [facility] [address] [place] [address] NomsMac MD Social History Tobacco Use Types [...] Visit [facility] [address] [place] [phone] Nola Knight PA [address] [place] [address] 06/07/2025 8:00 AM EDT Office Visit [facility] [address] [place] [address] Sam Garcia MD [address] [place] [address] documented as of this encounter Procedures Procedure Name Priority Date/Time Associated Diagnosis Comments ELECTROCARDIOGRAM REPORT Routine 024 9:51 AM EST documented in this encounter Results * Electrocardiogram Report (07/12/2024 9:51 AM EST) us Demo Provider [facility] CLINIC/BEDSIDE ORDERABL ES Final Result documented in this encounter Visit Diagnoses Not on filedocumented in this encounter Care Teams Typist Relationship Specialty Start Date End Date Sam Garcia MD [address] [place] [address] PCP - General Family Medicine 09/14/23 documented as of this encounter
--- OUTSIDE RECORDS SUMMARY | 2025-03-09 07:16 | XMS_ITS | Encounter Summary ---
Author Organization [facility] Address [address] [facility] [address] Care Team Providers Care Medical Physiologist Name Role Phone Sam Garcia MD Primary Care Provider [phone] Encounter Details Date Type Department Care Team (Late Contact Info) Description 11/25/2024 Abstract [facility] [address] [facility] [place] [address] Azeem Davidson [address] [facility] [address] [facility] [address] Miguel Zaidi, [facility] Social History Tobacco Use Types Packs/Day Years [...] 03/27/2025 8:30 AM EDT Office Visit [facility] [address] [place] [address] Nola Knight PA [address] [place], [place] [address] 06/07/2025 8:00 AM EDT Office Visit [facility] [address] [place] [address] Sam Garcia MD [address] [place] [address] documented as of this encounter Visit Diagnoses Not on filedocumented in this encounter Care Teams Medical Physiologist Relationship Specialty Start Date End Date Sam Garcia MD [address] [place] [address] PCP - General Family Medicine 09/14/23 documented as of this encounter
--- OUTSIDE RECORDS SUMMARY | 2025-03-09 07:16 | XMS_ITS | Encounter Summary ---
Author Organization [facility] Address [address] [facility] [place] [address] Care Team Providers Care Blanket Winder Helper Name Role Phone Sam Garcia MD Primary Care Provider [phone] Sam Garcia MD Primary Care Provider [phone] Encounter Details Date Type Department Care Team [...] Upcoming Encounters Date Type Department Care Team ([facility] Contact Info) Description 03/27/2025 8:30 AM EDT Office Visit [facility] [address] [facility] [place] [phone] Nola Knight PA [address] [facility] [place] [address] 06/07/2025 8:00 AM EDT Office Visit [facility] [address] [place] [address] Sam Garcia MD [address] [place] [address] documented as of this encounter Procedures Procedure Name Priority Date/Time Associated Diagnosis Comments ECG 12-LEAD 08/04/2023 2:10 PM EST documented in this encounter Results * ECG 12-LEAD (08/04/2023 2:10 PM EST) Anatomical Region Laterality Modality Other 08/04/2023 2:10 PM EST Narrative 08/05/2023 7:02 [place] [address] Electrocardiograph Report Signed Patient: DORIS SHEFFIELD MR#: [id number] : 1965 Acct:[id number] Age/Sex: 57 / F ADM Date: 08/04/23 Loc: PST Attending Dr: Johnny Davidson D.O. Ordering Physician: Johnny Davidson D.O. 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 Signed By: 08/05/23 0702 DD/ 1410 TD/TT: Pole Peeling Machine Operator Helper: Procedure Note Radiology, Radiologist, MD - 08/05/2023 [facility] [place] [id number] Electrocardiograph Report Signed Patient: DORIS SHEFFIELD AMR#: [id number] : 1965Acct:[id number] Age/Sex: 57 / FADM Date: 08/04/23 Loc: PST Attending Dr: Johnny Davidson D.O. Ordering Physician: Johnny Davidson D.O. 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 Signed By:08/05/23 0702 DD/ 1410 TD/TT: Pole Peeling Machine Operator Helper: us Generic External Data Provider [facility] Final Result documented in this encounter Visit Diagnoses Not on filedocumented in this encounter Care Teams Blanket Winder Helper Relationship Specialty Start Date End Date Sam Garcia MD PCP - General Family Medicine 05/04/23 09/13/23 Sam Garcia MD [address] [place] [address] PCP - General Family Medicine 09/14/23 documented as of this encounter
--- OUTSIDE RECORDS SUMMARY | 2025-03-09 07:16 | XMS_ITS | Encounter Summary ---
Author Organization [employer] Address [id number] [address] [place] [address] Care Team Providers Care Environmental Remediation Consultant Name Role Phone Sam Garcia MD Primary Care Provider [phone] Encounter Details Date Type Department Care Team (Late st Contact Info) Description 11/12/2023 Orders Only [facility] Orth[facility]ics/Trauma and Adult Reconstruction [address] [place] [address] Tia Collins, ADRIENNE S/P revision of total hip (Primary Dx) Social History Tobacco Use Types Packs/Day Years Used Date Smoking Tobacco: Former Cigarettes Q uit: 2013 Smokeless Tobacco: Never Alcohol Use Standard Drinks/Week Comments Yes 14 (1 standard drink = 0.6 oz pu re alcohol) [facility] Utilities Answer Date Recorded In the [...] INFORMATION:S/P revision of total hip . Mechanical: [place] and leg length. COMPARISON: None. PROCEDURE: AP [...] INFORMATION:S/P revision of total hip . Mechanical: [place] and leglength. COMPARISON: None. PROCEDURE: AP upright [...] extremity measures 78.8 cm. Left lower extremity bkcbbynl67.0 cm. Finalized by Lan Claire MD on 11/30/2023 9:32 AM German Ramirez MD [facility] O RDERABLES Final Result * [...] hip documented in this encounter Care Teams Environmental Remediation Consultant Relationship Specialty Start Date End Date Sam Garcia MD PCP - General Family Medicine 06/30/24 documented as of this encounter
--- OUTSIDE RECORDS SUMMARY | 2025-03-09 07:16 | XMS_ITS | Encounter Summary ---
Author Organization [employer] Address [facility] [id number] [address] [place] [address] Care Team Providers Care Boat Tender Name Role Phone Sam Garcia MD Primary Care Provider [phone] Encounter Details Date Type Department Care Team (Late st Contact Info) Description 04/27/2024 Orders Only [facility]/Trauma and Adult Reconstruction [address] [place] [address] Tia Collins, ADRIENNE S/P revision of total hip (Primary Dx) Social History Tobacco Use Types Packs/Day Years Used Date Smoking Tobacco: Former Cigarettes Q uit: 2013 Smokeless Tobacco: Never Alcohol Use Standard Drinks/Week Comments Yes 14 (1 standard drink = 0.6 oz pu re alcohol) [facility] Utilities Answer Date Recorded In the [...] hip documented in this encounter Care Teams Boat Tender Relationship Specialty Start Date End Date Sam Garcia MD PCP - General Family Medicine 06/30/24 documented as of this encounter
--- OUTSIDE RECORDS SUMMARY | 2025-03-09 07:16 | XMS_ITS | Patient Health Record ---
Author Organization [facility] Address [address] [place] [address] Care Team Providers Care Saddle Lining Stitcher Name Role Phone Sam Garcia MD Primary Care Provider Unavailab le Allergies Allergen (clinical drug ingredient) Drug/Non Drug Allergy documented on EMR Reaction Allergy Type Onset Date Status meperidine Demerol Unknown Drug Allergy Active Reason For Referral No Information Medications Medication SIG (Take, Route, Frequency, Duration) Notes Start Date End Date Status amLODIPine-Atorvastatin 10-1 0 MG 1 tablet Orally Once a day Active busPIRone HCl 5 MG 1 tablet Orally Twic e a day Active hydroCHLOROthiazide 25 MG 1 tablet in th e morning Orally Once a day Active Phentermine HCl 37.5 MG 1 capsule Orally Once a day Unknown Synthroid 75 MCG 1 tablet in the morning on an empty stomach Orally Once a day Unknown traZODone HCl 100 MG 1 tablet at bedtime Orally Once a day Unknown hydrOXYzine HCl 25 MG/ML as directed Intramuscular Active Losartan Potassium 100 MG 1 tablet Orall y Once a day Active Paxil 20 MG 1 tablet in the morning Orally Once a day Active Social History Tobacco Use: Social History Observation Description Date Details (start date - stop date) Former Smoker NA - NA Tobacco Use/Smoking Question Answer Notes Patient is a former smoker Plan Of Treatment No Information Insurance Providers Payer Name Payer Address Payer Phone Subscriber Number Group Number Insured Name Patient Relationship to Insured Coverage Start Date Coverage End Date [employer] [address] [address] [place] [address] [phone] [id number] Justino Doris Self - patient is the insured 9 Medical (General) History Medical History History ICD Code Chronic kidney disease (CKD), stage III (moderate) N18.30 arthritis atrial fibrillation hypertension joint replacement Surgical History Surgery Date(Month/Year) right Hip replacement 2017 oophorectomy unilateral right 2002 knee surgery right 2000 left ankle replacement 2019 tubal back nerve ablation
--- OUTSIDE RECORDS SUMMARY | 2025-03-09 07:17 | XMS_ITS | CCD ---
Author Organization [facility] Care Team Providers Care Fixture Relamper Name Role Phone RICARDA, FILIPPO Consulting Unavailable BETSY, DR TAY Velez Attending Unavailable BETSY, DR TAY Velez Admitting Unavailable ELYEREAbner, DR SAM Mccarthy Primary Care Unavailable RICARDA, [...] Velez Admitting Unavailable CHOWDARY, FILIPPO Consulting Unavailable ELYEREAbner, DR SAM Mccarthy Primary Care Unavailable WILD, DR GEORGIA Levine Attending Unavailable NADEREAbner, DR SAM Mccarthy Primary Care Unavailable SORIN, DR SUZETTE Woodruff Consulting Unavailable WILD, DR GEORGIA Levine Admitting Unavailable LUIS RESTREPO Consulting Unavailable BETSY, DR TAY Velez Attending Unavailable BESTY, DR TAY Velez Admitting Unavailable BETSY, DR [...] FILIPPO Admitting Unavailable CHOWDARY, FILIPPO Consulting Unavailable CLAY, DR TAY Velez Attending Unavailable CLAY, DR TAY Velez Admitting Unavailable NADERER, DR SAM Mccarthy Primary Care Unavailable Elyerer Sam DEMARCO Primary Care Provider [phone] KARISSA, SAM Mccarthy Admitting Unavailable NADERER, SAM Mccarthy Attending Unavailable NADEREAbner, SAM Mccarthy Primary Care Unavailable NADERER, SAM Primary Care Unavailable LIT GIFFORD Attending Unavailable CHOCO SALAMANCA Consulting Unavailable NOUMI JAMES Admitting Unavailable HEMATOLOGY, [facility] BENIGN Consulting [...] Referring Unavailable NADERER, SAM Primary Care Unavailable TONIO, CHRISTY Referring Unavailable NADERER, SAM Primary Care Unavailable FRANCO ADHIKARI Referring Unavailabl e NADERER, SAM Primary Care [...] Referring Unavailable NADERER, SAM Primary Care Unavailable ADIA IGLESIAS Attending Unavailable NADERER, SAM Referring Unavailable NADEREAbner, SAM Primary Care Unavailable Sam Hancock MD Primary Care Provider Sam Hancock MD Primary Care Provider Sam Hancock MD Primary Care Provider Sam Hancock MD Primary Care Provider [phone] SAM HANCOCK Referring Unavailable NADEREAbner, SAM Primary Care Unavailable SUZETTE CEJA Attending Unavailable SUZETTE CEJA Referring Unavailable NADEREAbner, SAM Primary Care Unavailable KARISSA, SAM Referring Unavailable NADEREAbner, SAM Primary Care Unavailable KARISSA, SAM Referring Unavailable NADILIR, SAM Primary Care Unavailable IGNACIO PHAM Attending Unavailable KARISSA, SAM Attending Unavailable AZEEM DAVIDSON Attending Unavailable CHRISTY CARY Attending Unavailable SAM HANCOCK Referring Unavailable CHRISTY CARY Attending Unavailable KARISSA, SAM Referring Unavailable AZEEM DAVIDSON Attending Unavailable KARISSA, SAM Attending Unavailable NADEREAbner, SAM Attending Unavailable NADEREAbner, SAM Attending Unavailable TIMMIMYRTLE Velez Attending Unavailable KARISSA, SAM Referring Unavailable Allergies Allergy Classification Reported Allergen(s) Allergy Type Date of Onset Reaction(s) Facility (2 sources) Meperidine Drug Allergy [facility] Repository (20 sources) Meperidine; Translations: [MEPERIDINE] Drug Allergy 07-24-2022 [facility] Work Phone: Medications Current Medications Medication Drug Class(es) Dates Sig (Normalized) Sig (Original) [id number] 200 actuat albuterol 0.09 mg/actuat metered dose inhaler (6 sources) beta2-Adrenergic Agonist Start: 07-11-2024 take 1 puff(s) by inhalation every four hours as needed albuterol (PROVENTIL HFA;VENTOLIN HFA) 90 mcg/actuation inhaler 1 puff every 4 (four) hours as needed. 07/11/2024 Active allopurinol 300 mg oral tablet (12 sources) Xanthine Oxidase Inhibitor Start: 03-01-2025 take 1 tablet by mouth once daily allopurinol (Zyloprim) 300 MG tablet Indications: Gouty arthritis Take 1 tablet (300 mg) by mouth Daily 30 tablet 2 03/01/2025 Active Start: 01-10-2025 End: 03-01-2025 take 1 tablet by mouth once daily allopurinol (Zyloprim) 300 MG tablet Indications: Gouty arthritis Take 1 tablet (300 mg) by mouth Daily 30 tablet 2 01/10/2025 03/01/2025 Discontinued (Reorder) amLODIPine 10 mg oral tablet (20 sources) Dihydropyridine Calcium Channel Josemanuel Start: 10-06-2023 End: 06-21-2024 take 1 tablet by mouth once daily amLODIPine (Norvasc) 10 MG tablet Indications: Essential hypertension, benign Take 1 tablet (10 mg) by mouth Daily 30 tablet 5 06/21/2024 Active aspirin 325 mg delayed release oral tablet (11 sources) Platelet Aggregation Inhibitor, Nonsteroidal Anti-inflammatory Drug Start: 11-14-2023 End: 12-26-2023 take 1 tablet by mouth in the morning, then take 1 tablet by mouth at bedtime aspirin 325 mg EC tablet Take 1 tablet (325 mg total) by mouth in the morning and 1 tablet (325 mg total) before bedtime. Do all this for 42 days. 84 tablet 11/14/2023 12/26/2023 Active Start: 10-16-2023 aspirin EC tab let 325 mg take 1 tablet by mouth once jennifer y aspirin 81 MG EC tablet Take 81 mg by mouth Daily Active benzonatate 100 mg oral capsule (4 sources) Non-narcotic Antitussive Start: 07-11-2024 take 1 capsule by mouth three times daily as needed benzonatate (TESSALON PERLES) 100 mg capsule Take 1 capsule (100 mg total) by mouth 3 (three) times a day as needed. 07/11/2024 Active bisacodyl 10 mg rectal suppository (1 source) Stimulant Laxative Start: 10-17-2023 bisacodyL (DULCOLAX) suppository 10 mg 60 actuat budesonide 0.16 mg/actuat / formoterol fumarate 0.0045 mg/actuat metered dose inhaler (20 sources) Corticosteroid, beta2-Adrenergic Agonist Start: 09-05-2024 take 2 puff(s) by inhalation in the morning budesonide-formoter ol (Symbicort) 160-4.5 MCG/ACT inhaler Indications: Chronic obstructive pulmonary disease, unspecified COPD type (HCC) Inhale 2 puffs in the morning and 2 puffs before bedtime. Rinse mouth with water after use to reduce aftertaste and incidence of candidiasis. Do not swallow.. 1 each 3 09/05/2024 Active calcium chloride 0.0014 meq/ml / potassium chloride 0.004 meq/ml / sodium chloride 0.103 meq/ml / sodium lactate 0.028 meq/ml injectable solution (2 sources) Start: 10-15-2023 End: 10-15-2023 lactated ringers infusion calcium citrate 950 mg oral tablet (4 sources) Start: 11-14-2023 End: 12-14-2023 calcium citrate (CALCITRATE) 200 mg (950 mg) tablet Take 2 tablets (400 mg total) by mouth in the morning and 2 tablets (400 mg total) at noon and 2 tablets (400 mg total) in the evening. Take with meals. Do all this for 30 days. 180 tablet 11/14/2023 12/14/2023 Active cyclobenzaprine hydrochloride 10 mg oral tablet (20 sources) Muscle Relaxant Start: 09-05-2024 End: 03-01-2025 take 1 tablet by mouth three times daily as needed for muscle spasms cyclobenzaprine (Flexeril) 10 MG tablet Indications: Degeneration of intervertebral disc of lumbar region with discogenic back pain and lower extremity pain Take 1 tablet (10 mg) by mouth 3 (three) times a day as needed for muscle spasms 60 tablet 2 09/05/2024 03/01/2025 Discontinued docusate sodium 50 mg / sennosides, longterm 8.6 mg oral tablet (5 sources) Start: 11-14-2023 End: 12-14-2023 take 2 tablets by mouth once daily sennosides-docusate sodium (SENOKOT-S) 8.6-50 mg Take 2 tablets by mouth nightly for 30 days. 60 tablet 11/14/2023 12/14/2023 Active Start: 10-16-2023 sennosides-doc usate sodium (SENOKOT-S) 8.6-50 mg 1 tablet ergocalciferol 1.25 mg oral capsule (4 sources) Provitamin D2 Compound Start: 11-17-2023 End: 01-16-2024 take 1 capsule by mouth every week ergocalciferol (DRISDOL) 1,250 mcg (50,000 unit) capsule Take 1 capsule (50,000 Units total) by mouth once a week for 60 days. 8 capsule 11/17/2023 01/16/2024 Active famotidine 20 mg oral tablet (20 sources) Histamine-2 Receptor Antagonist Start: 09-07-2024 End: 12-12-2024 take 1 tablet by mouth at bedtime famotidine (Pepcid) 20 MG tablet Indications: LPRD (laryngopharyngeal reflux disease) TAKE 1 TABLET BY MOUTH AT BEDTIME 90 tablet 12/12/2024 Active ferrous sulfate 325 mg delayed release oral tablet (9 sources) Start: 10-15-2023 ferrous sulfate tablet 325 mg Start: 09-17-2023 End: 01-13-2024 take 1 tablet by mouth once daily at breakfast ferrous sulfate 325 (65 FE) mg EC tablet Take 1 tablet (325 mg total) by mouth daily with breakfast for 60 days. 60 tablet 11/14/2023 01/13/2024 Active furosemide 40 mg oral tablet (10 sources) Loop Diuretic Start: 07-01-2024 End: 09-05-2024 furosemide (LASIX) 40 mg tablet Take 1 tablet (40 mg total) by mouth as needed. 07/01/2024 Active hydroCHLOROthiazide 25 mg oral tablet (20 sources) Thiazide Diuretic Start: 10-06-2023 End: 06-21-2024 take 1 tablet by mouth once daily hydroCHLOROthiazide (HYDRODiuril) 25 MG tablet Indications: Essential hypertension, benign Take 1 tablet (25 mg) by mouth Daily 30 tablet 5 06/21/2024 Active hydrOXYzine hydrochloride 25 mg oral tablet (20 sources) Antihistamine Start: 06-21-2024 End: 09-05-2024 take 1 tablet by mouth four times daily as needed for anxiety hydrOXYzine HCl (Atarax) 25 MG tablet Indications: Generalized anxiety disorder (CMS/HCC) Take 1 tablet (25 mg) by mouth 4 (four) times a day as needed for anxiety 60 tablet 2 06/21/2024 09/05/2024 Discontinued Start: 10-15-2023 hydrOXYzine (A TARAX) tablet 10 [...] Discontinued (Reorder) take 2 tablets by mo nhh every six hours as needed hydrOXYzine (ATARAX) 25 mg tablet Take 2 tablets (50 mg total) by mouth every 6 (six) hours as needed. Active take 1 tablet by [place] th three times daily as needed hydrOXYzine (ATARAX) 25 mg tablet Take 1 tablet (25 mg total) by mouth 3 (three) times a day as needed for itching. 0 Active levothyroxine sodium 0.075 mg oral tablet (20 sources) l-Thyroxine Start: 07-01-2024 take 1 tablet by mouth before mealtime levothyroxine (Synthroid) 75 MCG tablet Indications: Adult hypothyroidism Take 1 tablet (75 mcg) by mouth in the morning. Take before meals. 30 tablet 3 07/01/2024 Active losartan potassium 100 mg oral tablet (20 sources) Angiotensin 2 Receptor Josemanuel Start: 04-04-2024 End: 06-21-2024 take 1 tablet by mouth once daily losartan (Cozaar) 100 MG tablet Indications: Essential hypertension, benign Take 1 tablet (100 mg) by mouth Daily 30 tablet 5 06/21/2024 Active Start: 10-16-2023 take 100 mg by mouth once daily 100 mg, oral, Daily, First dose on Thu10/16/23 at 0900, Look-alike/sound-alike medication - verify indication for use. take 2 tablets by mo uth in the morning losartan (COZAAR) 50 mg tablet Take 2 tablets (100 mg total) by mouth in the morning. Active take 1 tablet by [place] in the morning losartan (Cozaar) 100 MG tablet Take 100 mg by mouth in the morning. 0 Active magnesium hydroxide 80 mg/ml oral suspension (1 source) Start: 10-17-2023 magnesium hydroxide (MILK OF MAGNESIA) suspension 30 mL magnesium oxide 400 mg oral tablet (4 sources) Start: 11-15-2023 End: 12-15-2023 take 1 tablet by mouth in the morning magnesium oxide (MAGOX) 400 mg tablet Take 1 tablet (400 mg total) by mouth in the morning for 30 days. 30 tablet 11/15/2023 12/15/2023 Active mineral oil 1000 mg/ml enema (2 sources) Start: 07-20-2024 End: 07-20-2024 take 133 mL rectal route once mineral oil (FLEET) enema Indications: Bleeding internal hemorrhoids Insert 133 mL into the rectum once for 1 dose. 133 mL 07/20/2024 07/20/2024 Active morphine injection 2 mg (1 source) Start: 10-15-2023 take 2 mg intravenously every two hours as needed morphine injection 2 mg 2 ml ondansetron 2 mg/ml injection (1 source) Serotonin-3 Receptor Antagonist Start: 10-15-2023 take 4 mg intravenously every six hours as needed for nausea and vomiting ondansetron (PF) (ZOFRAN) injection 4 mg oxyCODONE hydrochloride 5 mg oral tablet (6 sources) Opioid Agonist Start: 12-07-2023 End: 12-14-2023 take 1 tablet by mouth once oxyCODONE (ROXICODONE) 5 mg immediate release tablet Indications: Periprosthetic fracture around internal prosthetic left hip joint, subsequent encounter Take 1 tablet (5 mg total) by mouth every 12 (twelve) hours for 7 days. Max Daily Amount: 10 mg 14 tablet 12/07/2023 12/14/2023 Active Start: 10-17-2023 End: 10-22-2023 take 1 tablet [...] mg PARoxetine hydrochloride 20 mg oral tablet (20 sources) Serotonin Reuptake Inhibitor Start: 06-21-2024 End: 09-05-2024 take 1 tablet by mouth once daily PARoxetine (Paxil) 20 MG tablet Indications: Major depressive disorder, recurrent episode, moderate degree (CMS/HCC) Take 1 tablet (20 mg) by mouth Daily 30 tablet 5 06/21/2024 09/05/2024 Discontinued Start: 10-16-2023 take 30 mg by mouth once daily 30 mg, oral, Daily, First dose on Thu10/16/23 at 0900, Look-alike/sound-alike medication - verify indication for use. Start: 02-23-2023 End: 06-21-2024 take 1 tablet by mouth in the morning PARoxetine (Paxil) 30 MG tablet Take 30 mg by mouth in the morning. 02/23/2023 06/21/2024 Discontinued (Reorder) phentermine hydrochloride 37.5 mg oral tablet (20 sources) Sympathomimetic Amine Anorectic Start: 11-10-2023 End: 09-05-2024 take 45-49.9 tablets by mouth before mealtime phentermine (Adipex-P) 37.5 MG tablet Indications: Class 3 severe obesity due to excess calories with serious comorbidity and body mass index (BMI) of 45.0 to 49.9 in adult (CMS/HCC) Take 1 tablet (37.5 mg) by mouth in the morning. Take before meals. 30 tablet 06/21/2024 09/05/2024 Discontinued Start: 09-24-2023 End: 07-20-2024 take 37.5 mg by mouth once daily before breakfast 37.5 mg, oral, Every morning before breakfast, First dose on Thu10/15/23 at 1445, Look-alike/sound-alike medication - verify indication for use. polyethylene glycol [id number] [id number] mg powder for oral solution (4 sources) Osmotic Laxative Start: 11-14-2023 End: 12-14-2023 polyethylene glycol (GLYCOLAX) 17 gram packet Take 17 g by mouth daily as needed (Constipation) for up to 30 days. 30 packet 11/14/2023 12/14/2023 Active thiamine 100 mg oral tablet (4 sources) Start: 11-15-2023 End: 12-15-2023 take 1 tablet by mouth in the morning thiamine HCl (VITAMIN B-1) 100 mg tablet Take 1 tablet (100 mg total) by mouth in the morning for 30 days. 30 tablet 11/15/2023 12/15/2023 Active vitamin b12 1 mg oral tablet (4 sources) Vitamin B12 Start: 11-15-2023 End: 12-15-2023 take 1 tablet by mouth in the morning cyanocobalamin 1000 MCG tablet Take 1 tablet (1,000 mcg total) by mouth in the morning for 30 days. 30 tablet 11/15/2023 12/15/2023 Active Completed/Discontinued Medications Medication Drug Class(es) Dates Sig (Normalized) Sig (Original) acetaminophen 500 mg oral tablet (10 sources) Start: 11-14-2023 End: 07-20-2024 take 2 tablets by mouth every eight hours acetaminophen (TYLENOL EXTRA STRENGTH) 500 mg tablet Take 2 tablets (1,000 mg total) by mouth every 8 (eight) hours. 60 tablet 2 12/07/2023 07/20/2024 Discontinued (Therapy completed) Start: 10-15-2023 acetaminophen (TYLENOL EXTRA STRENGTH) tablet 1,000 mg Start: 10-15-2023 End: 10-15-2023 acetaminophen (TYLENOL) tabl et 650 mg acetaminophen 325 mg / oxyCODONE hydrochloride 5 mg oral tablet (7 sources) Opioid Agonist Start: 11-24-2023 End: 07-20-2024 oxyCODONE-acetaminophen (PERCOCET) 5-325 mg per tablet Indications: S/P revision of total hip Take 1 tablet by mouth every 6 (six) hours as needed for pain. Max Daily Amount: 4 tablets 28 tablet 11/24/2023 07/20/2024 Discontinued (Therapy completed) busPIRone hydrochloride 5 mg oral tablet (20 sources) Start: 11-27-2022 End: 09-05-2024 take 1 tablet by mouth in the morning, then take 1 tablet by mouth at bedtime busPIRone (BUSPAR) 5 mg tablet Take 1 tablet (5 mg total) by mouth in the morning and 1 tablet (5 mg total) before bedtime. 06/21/2024 07/29/2024 Discontinued ceFAZolin 2000 mg injection (1 source) Cephalosporin Antibacterial Start: 10-15-2023 End: 10-16-2023 take 2000 mg intravenously every eight hours ceFAZolin (ANCEF) IVPB 2000 mg/50 mL in iso-osmotic dextrose (40 mg/mL premix) celecoxib 200 mg oral capsule (1 source) Nonsteroidal Anti-inflammatory Drug Start: 10-15-2023 End: 10-15-2023 celecoxib (CeleBREX) capsule 200 mg omeprazole 40 mg delayed release oral capsule (14 sources) Proton Pump Inhibitor Start: 09-05-2024 End: 01-10-2025 take 1 capsule by mouth before mealtime omeprazole (PriLOSEC) [address] capsule Indications: LPRD (laryngopharyngeal reflux disease) Take 1 capsule (40 mg) by mouth in the morning. Take before meals. Do not crush or chew.. 90 capsule 09/07/2024 01/10/2025 Discontinued (Therapy completed) tranexamic acid 650 mg oral tablet (1 source) Antifibrinolytic Agent Start: 10-15-2023 End: 10-15-2023 tranexamic acid (LYSTEDA) tablet 1,950 mg Problems Active Problems Problem Classification Problem Date Documented Da te Episodic/Chronic Administrative/social admission (6 sources) Other reduced mobility; Translations: [Other specified conditions influencing health status] Onset: 5 01-25-2025 Episodic Alcohol-related disorders (1 source) Alcohol dependence, uncomplicated; Translations: [ALCOHOL DEPENDENCE UNCOMPLICATED] Onset: 1 Chronic Anxiety disorders (20 sources) Generalized anxiety disorder; Translations: [Generalized anxiety disorder] Onset: 1 09-03-2023 Chronic Cardiac dysrhythmias (20 sources) Paroxysmal atrial fibrillation; Translations: [Paroxysmal atrial fibrillation] Onset: 4 11-07-2023 Chronic Chronic kidney disease (20 sources) Chronic kidney disease, unspecified; Translations: [Chronic kidney disease stage 3] Onset: 1 Resolved: 4 09-24-2023 Chronic Chronic obstructive pulmonary disease and bronchiectasis (20 sources) Chronic obstructive lung disease; Translations: [Chronic obstructive pulmonary disease, unspecified] Onset: 5 09-05-2024 Chronic Disorders of lipid metabolism (3 sources) Dyslipidemia; Translations: [Hyperlipidemia, unspecified] Onset: 4 06-21-2024 Chronic Esophageal disorders (3 sources) Laryngopharyngeal reflux; Translations: [Gastro-esophageal reflux disease without esophagitis] 09-07-2024 Chronic Essential hypertension (20 sources) Benign essential hypertension; Translations: [Essential (primary) hypertension] Onset: 2 10-06-2023 Chronic Gastritis and duodenitis (20 sources) Chronic gastritis; Translations: [Unspecified chronic gastritis without bleeding] Onset: 4 09-03-2023 Chronic Gastrointestinal hemorrhage (1 source) Hemorrhage of anus and rectum; Translations: [Hemorrhage of anus and rectum] Onset: 4 Episodic Gout and other crystal arthropathies (14 sources) Articular gout; Translations: [Gout, unspecified] Onset: 5 01-10-2025 Chronic Hypertension with complications and secondary hypertension (1 source) Hypertensive chronic kidney disease with stage 1 through stage 4 chronic kidney disease, or unspecified chronic kidney disease; Translations: [HTN CKD W/STAGE 1-4 CKD/UNS CKD] Onset: 1 Chronic Malaise and fatigue (10 sources) Asthenia; Translations: [Weakness] Onset: 5 01-25-2025 Episodic Menopausal disorders (17 sources) Postmenopausal bleeding; Translations: [Postmenopausal bleeding] Onset: 5 01-10-2025 Chronic Mood disorders (20 sources) Recurrent major depressive episodes, mild ; Translations: [Major depressive disorder, recurrent, mild] Onset: 4 09-24-2023 Chronic Nutritional deficiencies (12 sources) Vitamin D deficiency; Translations: [Vitamin D deficiency, unspecified] Onset: 4 11-07-2023 Chronic Osteoarthritis (20 sources) Primary osteoarthritis, left shoulder; Translations: [Arthritis of left ankle] Onset: 2 Chronic Other acquired deformities (20 sources) Equinus contracture of the ankle; Translations: [Contracture, left ankle] Onset: 4 09-03-2023 Chronic Other connective tissue disease (1 source) Presence of unspecified artificial hip joint; Translations: [Presence of unspecified artificial hip joint] Onset: 4 Chronic Other connective tissue disease (20 sources) History of total hip arthroplasty; Translations: [Presence of left artificial hip joint] Onset: 4 10-19-2023 Chronic Other connective tissue disease (15 sources) History of repair of hip joint; Translations: [Presence of unspecified artificial hip joint] Onset: 4 11-24-2023 Chronic Other connective tissue disease (10 sources) History of revision of left total hip arthroplasty; Translations: [Presence of left artificial hip joint] Onset: 5 01-25-2025 Chronic Other connective tissue disease (1 source) Muscle wasting and atrophy, not elsewhere classified, unspecified site; Translations: [MUSCLE WASTING ATROPHY NEC UNS SITE] Onset: 2 Episodic Other lower respiratory disease (2 sources) Chronic cough; Translations: [Chronic coughing] 09-07-2024 Episodic Other lower respiratory disease (2 sources) Shortness of breath; Translations: [Shortness of breath] Onset: 5 Episodic Other nervous system disorders (1 source) Chronic pain syndrome; Translations: [CHRONIC PAIN SYNDROME] Onset: 1 Chronic Other nervous system disorders (1 source) Other chronic pain; Translations: [Other chronic pain] Onset: 4 Chronic Other nutritional; endocrine; and metabolic disorders (1 source) Obesity, unspecified; Translations: [OBESITY UNSPECIFIED] Onset: 1 Chronic Other nutritional; endocrine; and metabolic disorders (4 sources) Morbid obesity; Translations: [Morbid (severe) obesity due to excess calories] Onset: 4 09-24-2023 Chronic Other nutritional; endocrine; and metabolic disorders (2 sources) Morbid (severe) obesity due to excess calories; Translations: [Morbid (severe) obesity due to excess calories] Onset: 4 Chronic Other nutritional; endocrine; and metabolic disorders (1 source) Body mass index (BMI) 40.0-44.9, adult; Translations: [Body mass index (BMI) 40.0-44.9, adult] Onset: 4 Chronic Other nutritional; endocrine; and metabolic disorders (20 sources) Severe obesity; Translations: [Class 3 severe obesity due to excess calories with serious comorbidity and body mass index (BMI) of 45.0 to 49.9 in adult (CMS/[facility])] Onset: 4 06-21-2024 Chronic Other nutritional; endocrine; and metabolic disorders (12 sources) Body mass index 40+ - severely obese; Translations: [Body mass index (BMI) 40.0-44.9, adult] Onset: 4 09-15-2023 Chronic Other nutritional; endocrine; and metabolic disorders (1 source) Body mass index (BMI) 45.0-49.9, adult; Translations: [Body mass index (BMI) 45.0-49.9, adult] Onset: 4 Chronic Other screening for suspected conditions (not mental disorders or infectious disease) (2 sources) Patient encounter status; Translations: [Encounter for screening mammogram for malignant neoplasm of breast] 01-04-2025 Episodic Spondylosis; intervertebral disc disorders; other back problems (20 sources) Spondylosis without myelopathy or radiculopathy, cervical region; Translations: [Other cervical disc degeneration, unspecified cervical region] Onset: 1 Chronic Spondylosis; intervertebral disc disorders; other back problems (10 sources) Cervicalgia; Translations: [Low back pain] Onset: 1 Episodic Thyroid disorders (20 sources) Hypothyroidism, unspecified; Translations: [Unspecified acquired hypothyroidism] Onset: 1 09-03-2023 Chronic Unclassified (1 source) LOW BACK PAIN, UNSPECIFIED; Translations: [LOW BACK PAIN, UNSPECIFIED] Onset: 1 Unclassified (1 source) CONTACT W/AND (SUSP) EXPOS COVID-19; Translations: [CONTACT W/AND (SUSP) EXPOS COVID-19] Onset: 1 Unclassified (1 source) Establish Care Onset: 4 Unclassified (1 source) Post-op Onset: 4 Unclassified (1 source) S/p hip replacement [address] Keen Onset: 4 Unclassified (1 source) Obesity, class 3; Translations: [Obesity, class 3] Onset: 4 Past or Other Problems Problem Classification Problem Date Documented Date Episodic/Chronic Abdominal pain (4 sources) Unspecified abdominal pain; Translations: [UNSPECIFIED ABDOMINAL PAIN] Onset: 03-01-2021 Episodic Acquired foot deformities (20 sources) Acquired abduction deformity of foot; Translations: [Valgus deformity, not elsewhere classified, left ankle] Onset: 09-03-2023 09-03-2023 Episodic Acute posthemorrhagic anemia (13 sources) Acute posthemorrhagic anemia; Translations: [Acute posthemorrhagic anemia] Onset: 11-07-2023 11-07-2023 Episodic Complications of surgical procedures or medical care (17 sources) Periprosthetic fracture around internal prosthetic left hip joint, subsequent encounter; Translations: [Periprosthetic fracture around other internal prosthetic joint, initial encounter] Onset: 11-07-2023 11-07-2023 Episodic Diabetes mellitus without complication (20 sources) Prediabetes; Translations: [Prediabetes] Onset: 09-03-2023 09-03-2023 Episodic Hemorrhoids (20 sources) Bleeding hemorrhoids; Translations: [Unspecified hemorrhoids] Onset: 06-21-2024 06-21-2024 Episodic Other aftercare (2 sources) Other correction (current) drug therapy; Translations: [OTH 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 CURRENT DRUG THERAPY] Onset: 03-05-2021 Episodic Other aftercare (20 sources) Long-term current use of drug therapy; Translations: [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 therapy] Onset: 06-21-2024 06-21-2024 Episodic Other bone disease and musculoskeletal deformities (20 sources) Bone cyst of left ankle; Translations: [Other cyst of bone, left ankle and foot] Onset: 09-03-2023 09-03-2023 Episodic Other circulatory disease (20 sources) Feeling of lump in throat; Translations: [Globus sensation] Onset: 09-05-2024 09-05-2024 Episodic Other connective tissue disease (1 source) Other bursitis of elbow, right elbow; Translations: [OTHER BURSITIS OF ELBOW RIGHT ELBOW] Onset: 10-21-2021 Episodic Other connective tissue disease (20 sources) Dysfunction of posterior tibial tendon of left foot; Translations: [Posterior tibial tendinitis, left leg] Onset: 09-03-2023 09-03-2023 Episodic Other connective tissue disease (1 source) Pain in lower limb Onset: 11-07-2023 Episodic Other nervous system disorders (20 sources) Hip pain; Translations: [Other acute postprocedural pain] Onset: 10-18-2023 Resolved: 06-21-2024 10-19-2023 Episodic Other non-traumatic joint disorders (5 sources) Pain in right elbow; Translations: [PAIN IN RIGHT ELBOW] Onset: 07-25-2021 Episodic Other non-traumatic joint disorders (2 sources) Pain in left shoulder; Translations: [PAIN IN LEFT SHOULDER] Onset: 08-01-2021 Episodic Other non-traumatic joint disorders (20 sources) Chronic pain of left upper limb; Translations: [Pain in left shoulder] Onset: 09-03-2023 09-03-2023 Episodic Other non-traumatic joint disorders (20 sources) Chronic ankle pain; Translations: [Pain in left ankle and joints of left foot] Onset: 09-03-2023 09-03-2023 Episodic Other non-traumatic joint disorders (14 sources) Pain in elbow; Translations: [Pain in right elbow] Onset: 12-03-2023 12-03-2023 Episodic Residual codes; unclassified (20 sources) Bilateral lower limb edema; Translations: [Localized edema] Onset: 07-01-2024 07-01-2024 Episodic Screening and history of mental health and substance abuse codes (1 source) Personal history of nicotine dependence; Translations: [PERSONAL HISTORY OF NICOTINE DEPEND] Onset: 03-05-2021 Episodic Sprains and strains (20 sources) Sprain of deltoid ligament of ankle; Translations: [Sprain of deltoid ligament of unspecified ankle, sequela] Onset: 09-03-2023 09-03-2023 Episodic Results Test Name Value Interpretation Reference Range Facility ALL CBC WITH AUTO DIFFon BASOPHILS ABSOLUTE AUTO 0 [facility] Basophils/100 WBC (Bld) 0.3 % 0.2 - 2.0 % [facility] Eosinophils/100 WBC (Bld) 0.3 % Low 0.9 - 7.0 % [facility] Erythrocyte distribution width (RBC) [Ratio] 17.9 % High 11.0 - 15.0 % [facility] Hematocrit (Bld) [Volume fraction] 31.1 % Low 36.0 - 48.0 % [facility] Hemoglobin (Bld) [Mass/Vol] 10.1 g/dL Low 12.0 - 16.0 g/dL [facility] IMMATURE GRANULOCYTES ABS AUTO 0.09 High [facility] Immature granulocytes/100 WBC (Bld) 0.8 % High 0.0 - 0.5 % [facility] Interpretation and review of laboratory results Abnormal [facility] LYMPHOCYTES ABSOLUTE AUTO 1.3 [facility] Lymphocytes/100 WBC (Bld) 10.8 % Low 20.5 - 60.0 % [facility] MCH (RBC) [Entitic mass] 26.6 pg Low 26.7 - 34.0 pg [facility] MCHC (RBC) [Mass/Vol] 32.5 g/dL 29.9 - 35.2 g/dL [facility] MCV (RBC) [Entitic vol] 82.1 fL 81.0 - 99.0 fL [facility] MONOCYTES ABSOLUTE AUTO 0.6 [facility] Monocytes/100 WBC (Bld) 5.4 % 1.7 - 12.0 % [facility] NEUTROPHILS ABSOLUTE AUTO 9.7 High [facility] Neutrophils/100 WBC (Bld) 82.4 % High 43.0 - 75.0 % [facility] Platelet mean volume (Bld) [Entitic vol] 8.4 fL Low 9.5 - 13.5 fL [facility] EO # 0 [facility] PLT 390 [facility] RBC 3.79 Low [facility] WBC 11.8 High [facility] XR CHEST 2Von 03-02-2025 [place] [address] XRay Report Signed Patient: OG BADILLO MR#: [id number] : 1965 Acct:[id number] Age/Sex: 59 / F ADM Date: 03/02/25 Loc: [facility] Attending Dr: Azeem Davidson D.O. Ordering Physician: Azeem Davidson D.O. Date of Service: 03/02/25 Procedure(s): XR chest 2V Accession Number(s): [id number] cc: Azeem Davidson D.O.; Sam Hancock M.D. The [address] [address] Patient Name: OG BADILLO MRN: [facility]:[id number] date: 1965 Sex: F Assigned Patient Location: SURGOUT Current Patient Location: SURGOUT Accession/Order Number: [id number] Exam Date: 03/02/2025 11:34 Report Date: 03/02/2025 11:36 At the request of: AZEEM DAVIDSON DO Procedure: XR chest 2V PA AND LATERAL CHEST: CLINICAL HISTORY: Preoperative clearance COMPARISON: 07/11/2024 There is no focal parenchymal consolidation, effusion or pneumothorax. The cardiac, hilar and mediastinal silhouettes are within normal limits. There is no vascular congestion. The visualized bony thorax is intact. Endplate spurring is present at the spine. There are also degenerative changes at the shoulders, greater on the left. XR/XR chest 2V IMPRESSION: NO ACUTE CARDIOPULMONARY ABNORMALITY. Impression dictated by: Marium Alarcon M.D. 03/02/2025 11:36 AM Dictation Location: [place] [address] Electronically authenticated by: [id number] Y Date: 03/02/2025 11:36 Dictated By: Marium Alarcon M.D. Signed By: 03/02/25 1139 DD/ 1136 TD/TT: Super[facility] [employer]: [facility] Radiology, Radiologist, MD - 03/02/2025 [place] [address] XRay Report Signed Patient: OG BADILLO MR#: [id number] : 1965 Acct:[id number] Age/Sex: 59 / F ADM Date: 03/02/25 Loc: [facility] Attending Dr: Azeem Davidson D.O. Ordering Physician: Azeem Davidson D.O. Date of Service: 03/02/25 Procedure(s): XR chest 2V Accession Number(s): [id number] cc: Azeem Davidson D.O.; Sam Hancock M.D. The [place] [address] Patient Name: OG BADILLO MRN: [facility]:[id number] date: 1965 Sex: F Assigned Patient Location: SURGOUT Current Patient Location: [facility] Accession/Order Number: [id number] Exam Date: 03/02/2025 11:34 Report Date: 03/02/2025 11:36 At the request of: AZEEM DAVIDSON DO Procedure: XR chest 2V PA AND LATERAL CHEST: CLINICAL HISTORY: Preoperative clearance COMPARISON: 07/11/2024 There is no focal parenchymal consolidation, effusion or pneumothorax. The cardiac, hilar and mediastinal silhouettes are within normal limits. There is no vascular congestion. The visualized bony thorax is intact. Endplate spurring is present at the spine. There are also degenerative changes at the shoulders, greater on the left. XR/XR chest 2V IMPRESSION: NO ACUTE CARDIOPULMONARY ABNORMALITY. Impression dictated by: Marium Alarcon M.D. 03/02/2025 11:36 AM Dictation Location: [place] [address] Electronically authenticated by: [id number] Y Date: 03/02/2025 11:36 Dictated By: Marium Alarcon M.D. Signed By: 03/02/25 1139 DD/ 1136 TD/TT: Supervisor [employer]: [facility] [employer] Radiology Study observation (narrative) [facility] [employer] XR CHEST 2VOrdered By: [facility] on 03-02-2025 [facility] [employer] Work Phone: Office Visiton 02-13-2025 Follow-up visit [id number] Og Badillo 1965 F Date Provider Department Center 02/13/2025 IGNACIO BENEDICT DOV [facility] Family History Problem Relation Age of Onset Hypertension Mother Heart attack Father Family Status - Relation Status Age at Mother Father Alive Level of Service:30617 RI OFFICE/OUTPATIENT ESTABLISHED MOD MDM 30 MIN Normal [facility] T3, FREEon 01-09-2025 Free T3 [Mass/Vol] 3.18 pg/mL Normal 2.50-3.90 [facility] Comment on above: Performed By: #### F T3 #### [facility] ([facility]) [address] [place] [address] VIR THYROID PROFILE INCLUDES TSH FT4on 01-09-2025 Free T4 [Mass/Vol] 1.03 ng/dL Normal 0.61-1.60 [facility] Comment on above: Performed By: #### T HYR #### [facility] ([facility]) [address] [place] [address] VIR TSH 1.19 uIU/mL Normal 0.49-4.67 [facility] Comment on above: Performed By: #### T HYR #### [facility] ([facility]) [address] [place] [address] VIR URIC ACIDon 01-09-2025 Urate [Mass/Vol] 8.8 mg/dL High 2.6-7.2 [facility] Comment on above: Performed By: #### U KATHY #### [facility] ([facility]) [address] [place] [address] VIR BASIC METABOLIC PANLon 06-30 Anion gap [Moles/Vol] 15 mmol/L Normal 5-15 [facility] Comment on above: Performed By: #### C BCA, HA1C, BMP, 37554-5, LIVR, THYR #### [facility] ([id number]) [address] [place] [address] Calcium [Mass/Vol] 8.4 mg/dL Low 8.5-10.5 [facility] Comment on above: Performed By: #### C BCA, HA1C, BMP, 82592-7, LIVR, THYR #### [facility] ([id number]) [address] [place] [address] Chloride [Moles/Vol] 101 mmol/L Normal 98-109 [facility] Comment on above: Performed By: #### C BCA, HA1C, BMP, 23456-1, LIVR, THYR #### [facility] ([id number]) [address] [place] [address] CO2 [Moles/Vol] 23 mmol/L Normal 22-32 [facility] Comment on above: Performed By: #### C BCA, HA1C, BMP, 19206-1, LIVR, THYR #### [facility] ([id number]) [address] [place] [address] Creatinine [Mass/Vol] 0.71 mg/dL Normal 0.40-1.00 [facility] Comment on above: Result Comment: METH OD TRACEABLE TO IDMS STANDARD Performed By: #### C BCA, HA1C, BMP, 91365-6, LIVR, THYR #### [facility] ([id number]) [address] [place] [address] eGFR (CKD-EPI) NON-RACE DEPENDENT >90 Normal >59 [facility] Comment on above: Result Comment: Reported eGFR is based on the CKD-EPI 2020 equation that does not use a race coefficient. Performed By: #### C BCA, HA1C, BMP, 01494-3, LIVR, THYR #### [facility] ([id number]) [address] [address] [place] [address] Glucose [Mass/Vol] 136 mg/dL High 65-99 [facility] Comment on above: Performed By: #### C BCA, HA1C, BMP, 24278-5, LIVR, THYR #### [facility] ([id number]) [address] [address] [place] [address] Potassium [Moles/Vol] 4.7 mmol/L Normal 3.5-5.0 [facility] Comment on above: Performed By: #### C BCA, HA1C, BMP, 86514-7, LIVR, THYR #### [facility] ([id number]) [address] [address] [place] [address] Sodium [Moles/Vol] 139 mmol/L Normal 134-146 [facility] Comment on above: Performed By: #### C BCA, HA1C, BMP, 60912-1, LIVR, THYR #### [facility] ([id number]) [address] [address] [place] [address] Urea nitrogen [Mass/Vol] 5 mg/dL Normal 5-23 [facility] Comment on above: Performed By: #### C BCA, HA1C, BMP, 06651-2, LIVR, THYR #### [facility] ([id number]) [address] [place] [address] CBC AND AUTO DIFFon 06-30-20 24 ABSOLUTE BASOPHIL 0.0 X10E9/L Normal 0.0-0.2 [facility] Comment on above: Performed By: #### C BCA, HA1C, BMP, 08352-1, LIVR, THYR #### [facility] ([id number]) [address] [place] [address] ABSOLUTE NEUTROPHIL 5.0 X10E9/L Normal 1.5-6.6 [facility] Comment on above: Performed By: #### C BCA, HA1C, BMP, 13817-7, LIVR, THYR #### [facility] ([id number]) [address] [place] [address] Basophils/100 WBC (Bld) 0.4 % Normal [facility] Comment on above: Performed By: #### C BCA, HA1C, BMP, 67204-1, LIVR, THYR #### [facility] ([id number]) [address] [place] [address] Eosinophils (Bld) [#/Vol] 0.0 10*3/uL Normal 0.0-0.4 [facility] Comment on above: Performed By: #### C BCA, HA1C, BMP, 15971-9, LIVR, THYR #### [facility] ([id number]) [address] [address] [place] [address] Eosinophils/100 WBC (Bld) 0.6 % Normal [facility] Comment on above: Performed By: #### C BCA, HA1C, BMP, 60993-2, LIVR, THYR #### [facility] ([id number]) [address] [place] [address] Erythrocyte distribution width (RBC) [Ratio] 13.9 % Normal 11.5-15.0 [facility] Comment on above: Performed By: #### C BCA, HA1C, BMP, 78750-1, LIVR, THYR #### [facility] ([id number]) [address] [place] [address] Hematocrit (Bld) [Volume fraction] 34.1 % Low 35-47 [facility] Comment on above: Performed By: #### C BCA, HA1C, BMP, 27721-3, LIVR, THYR #### [facility] ([id number]) [address] [place] [address] Hemoglobin (Bld) [Mass/Vol] 11.2 g/dL Low 11.7-15.5 [facility] Comment on above: Performed By: #### C BCA, HA1C, BMP, 21547-6, LIVR, THYR #### [facility] ([id number]) [address] [address] [place] [address] Lymphocytes (Bld) [#/Vol] 0.9 10*3/uL Low 1.0-3.5 [facility] Comment on above: Performed By: #### C BCA, HA1C, BMP, 73988-1, LIVR, THYR #### [facility] ([id number]) [address] [place] [address] Lymphocytes/100 WBC (Bld) 14.0 % Normal [facility] Comment on above: Performed By: #### C BCA, HA1C, BMP, 00609-0, LIVR, THYR #### [facility] ([id number]) [address] [place] [address] MCH (RBC) [Entitic mass] 33.2 pg Normal 27-34 [facility] Comment on above: Performed By: #### C BCA, HA1C, BMP, 85395-6, LIVR, THYR #### [facility] ([id number]) [address] [place] [address] MCHC (RBC) [Mass/Vol] 32.8 g/dL Normal 32-36 [facility] Comment on above: Performed By: #### C BCA, HA1C, BMP, 58702-2, LIVR, THYR #### [facility] ([id number]) [address] [place] [address] MCV (RBC) [Entitic vol] 101 fL High 80-100 [facility] Comment on above: Performed By: #### C BCA, HA1C, BMP, 89063-6, LIVR, THYR #### [facility] ([id number]) [address] [place] [address] Monocytes (Bld) [#/Vol] 0.6 10*3/uL Normal 0-0.9 [facility] Comment on above: Performed By: #### C BCA, HA1C, BMP, 86616-7, LIVR, THYR #### [facility] ([id number]) [address] [place] [address] Monocytes/100 WBC (Bld) 9.6 % Normal [facility] Comment on above: Performed By: #### C BCA, HA1C, BMP, 86285-9, LIVR, THYR #### [facility] ([id number]) [address] [address] [place] [address] Neutrophils/100 WBC (Bld) 75.4 % Normal [facility] Comment on above: Performed By: #### C BCA, HA1C, BMP, 80419-0, LIVR, THYR #### [facility] ([id number]) [address] [place] [address] Platelet mean volume (Bld) [Entitic vol] 7.0 fL Normal 7-12 [facility] Comment on above: Performed By: #### C BCA, HA1C, BMP, 91425-3, LIVR, THYR #### [facility] ([id number]) [address] [place] [address] Platelets (Bld) [#/Vol] 296 10*3/uL Normal 150-450 [facility] Comment on above: Performed By: #### C BCA, HA1C, BMP, 88113-1, LIVR, THYR #### [facility] ([id number]) [address], [facility] [address] [place] [address] RBC COUNT 3.36 X10E12/L Low 3.80-5.20 [facility] Comment on above: Performed By: #### Ned BCA, HA1C, BMP, 81900-2, LIVR, THYR #### [facility] ([id number]) [address], [facility] [address] [place] [address] WBC (Bld) [#/Vol] 6.7 10*3/uL Normal 4.0-11.0 [facility] Comment on above: Performed By: #### C BCA, HA1C, BMP, 58316-2, LIVR, THYR #### [facility] ([id number]) [address], [facility] [address] [place] [address] CBC W Auto Differential pane l (Bld)on 06-30-2024 ABSOLUTE BASOPHIL 0 [facility] Comment on above: PERFORMED AT [facility] [address] [facility] [address],[place] [address] Basophils/100 WBC (Bld) 0.4 % [facility] Eosinophils (Bld) [#/Vol] 0 10*3/uL [facility] Eosinophils/100 WBC (Bld) 0.6 % [facility] Erythrocyte distribution width (RBC) [Ratio] 13.9 % 11.5 - 15.0 % [facility] Hematocrit (Bld) [Volume fraction] 34.1 % Low 35 - 47 % [facility] Hemoglobin (Bld) [Mass/Vol] 11.2 g/dL Low 11.7 - 15.5 g/dL [facility] Interpretation and review of laboratory results Abnormal [facility] Lymphocytes (Bld) [#/Vol] 0.9 10*3/uL Low [facility] Lymphocytes/100 WBC (Bld) 14 % [facility] MCH (RBC) [Entitic mass] 33.2 pg 27 - 34 pg [facility] MCHC (RBC) [Mass/Vol] 32.8 g/dL 32 - 36 g/dL [facility] MCV (RBC) [Entitic vol] 101 fL High 80 - 100 fL [facility] Monocytes (Bld) [#/Vol] 0.6 10*3/uL [facility] Monocytes/100 WBC (Bld) 9.6 % [facility] Neutrophils (Bld) [#/Vol] 5 10*3/uL [facility] Neutrophils/100 WBC (Bld) 75.4 % [facility] Platelet mean volume (Bld) [Entitic vol] 7 fL 7 - 12 fL [facility] Platelets (Bld) [#/Vol] 296 10*3/uL [facility] RBC (Bld) [#/Vol] 3.36 10*6/uL Low [facility] WBC corrected for nucl RBC Auto (Bld) [#/Vol] 6.7 [facility] HGB A1C (GLYCO-HGB)on 2023 Glucose [Mass/Vol] 123 mg/dL Normal [facility] Comment on above: Performed By: #### C BCA, HA1C, BMP, 59436-2, LIVR, THYR #### [facility] ([id number]) [address] [facility] [place] [address] HbA1c (Bld) [Mass fraction] 5.9 % High 4.4-5.6 [facility] Comment on above: Result Comment: NOTE ADA Guidelines Result HgbA1c Normal : less than 5.7 % Prediabetes : 5.7 % to 6.4 % Diabetes : > 6.4 % Use with caution in patients with abnormal hemoglobin variants as the half-life of red blood cells and in vivo glycation rates are affected. Performed By: #### C BCA, HA1C, BMP, 29474-1, LIVR, THYR #### [facility] ([id number]) [address] [place] [address] LIVER PANELon 06-30-2024 Albumin [Mass/Vol] 3.5 g/dL Normal 3.2-5.3 [facility] Comment on above: Performed By: #### C BCA, HA1C, BMP, 76917-9, LIVR, THYR #### [facility] ([id number]) [address], [facility] [address] [place] [address] ALP [Catalytic activity/Vol] 98 U/L Normal 39-130 [facility] Comment on above: Performed By: #### C BCA, HA1C, BMP, 16880-9, LIVR, THYR #### [facility] ([id number]) [address], [facility] [address] [place] [address] ALT [Catalytic activity/Vol] 22 U/L Normal 0-31 [facility] Comment on above: Performed By: #### C BCA, HA1C, BMP, 74232-1, LIVR, THYR #### [facility] ([id number]) [address], [facility] [address] [place] [address] AST [Catalytic activity/Vol] 42 U/L High 0-41 [facility] Comment on above: Performed By: #### C BCA, HA1C, BMP, 53259-6, LIVR, THYR #### [facility] ([id number]) [address] [address] [place] [address] Bilirubin [Mass/Vol] 0.4 mg/dL Normal 0.3-1.2 [facility] Comment on above: Performed By: #### C BCA, HA1C, BMP, 97045-8, LIVR, THYR #### [facility] ([id number]) [address] [place] [address] Bilirubin.direct [Mass/Vol] 0.1 mg/dL Normal 0.0-0.4 [facility] Comment on above: Performed By: #### C BCA, HA1C, BMP, 42335-9, LIVR, THYR #### [facility] ([id number]) [address] [place] [address] Protein [Mass/Vol] 6.2 g/dL Normal 6.0-8.0 [facility] Comment on above: Performed By: #### C BCA, HA1C, BMP, 86387-2, LIVR, THYR #### [facility] ([id number]) [address] [place] [address] Lipid 1996 panelon 4 Cholesterol [Mass/Vol] 229 mg/dL High 150-200 [facility] Comment on above: Performed By: #### C BCA, HA1C, BMP, 20815-3, LIVR, THYR #### [facility] ([id number]) [address] [place] [address] Cholesterol in HDL [Mass/Vol] 53 mg/dL Normal >39 [facility] Comment on above: Result Comment: HDL <40 mg/dL - High Risk HDL > or = 40mg/dL- Desirable HDL >60 mg/dL - Negative Risk Performed By: #### C BCA, HA1C, BMP, 76230-7, LIVR, THYR #### [facility] ([id number]) [address] [place] [address] Cholesterol in LDL [Mass/Vol] 126 mg/dL Normal <130 [facility] Comment on above: Result Comment: LDL <100 mg/dL - Desirable LDL >160 mg/dL - High Risk Performed By: #### C BCA, HA1C, BMP, 56362-2, LIVR, THYR #### [facility] ([id number]) [address] [address] Cholesterol in VLDL [Mass/Vol] 50 mg/dL High 0-30 [facility] Comment on above: Performed By: #### C BCA, HA1C, BMP, 70271-5, LIVR, THYR #### [facility] ([id number]) [address] [address] [place] [address] CHOLESTEROL:HDL 4.3 Normal 1.0-5.0 [facility] Comment on above: Performed By: #### C BCA, HA1C, BMP, 29331-4, LIVR, THYR #### [facility] ([id number]) [address] [address] [place] [address] Triglyceride [Mass/Vol] 252 mg/dL High 27-150 [facility] Comment on above: Performed By: #### C BCA, HA1C, BMP, 09634-7, LIVR, THYR #### [facility] ([id number]) [address] [address] THYROID PROFILEon 06-30-2024 Free T4 [Mass/Vol] 0.60 ng/dL Low 0.61-1.60 [facility] Comment on above: Performed By: #### C BCA, HA1C, BMP, 48374-3, LIVR, THYR #### [facility] ([id number]) [address] [address] [place] [address] TSH 4.99 uIU/mL High 0.49-4.67 [facility] Comment on above: Performed By: #### C BCA, HA1C, BMP, 14769-8, LIVR, THYR #### [facility] ([id number]) [address], [address] [place] [address] XR FEMUR LT 2+ VIEWSon 04-28 XR [...] Rebolledo MD on 04/28/2024 7:02 PM Normal [facility] XR ELBOW RT MIN 3 VWSon [...] Meade MD on 01/23/2024 7:27 AM Normal [place] [facility] X[facility] SHOULDER LT MIN 2 VWSon [...] Hdz MD on 01/22/2024 6:08 AM Normal [facility] XR BONE LENGTH STUDYon 11-29 XR BONE LENGTH STUDY XR BONE LENGTH STUD Y CLINICAL INFORMATION:S/P revision of total hip . Mechanical: [place] and leg length. COMPARISON: None. PROCEDURE: [...] Claire MD on 11/30/2023 9:32 AM Normal [facility] XR HIP LT 2-3 VIEWS W [...] Hdz MD on 11/25/2023 5:53 PM Normal [facility] Coding Summaryon 11-24-2023 Coding Summary HTMLBase 64 PilydkhzXSv7vGo+PGhlYW Q+AK9UIKLuP09tsDIdqZ3w G9TIZNcHQuolTVWOGQbMLc NspwBqXJ4bbVMeXLUn IC8+IK6jDDPkSmporGBgd8 V4aXP9F02nmp7tOHhjmBB2 HVRyZlWgvxjfl8ricYc4UC cuNmluOyBt ZKYvbB01RRM4vY05Oj51pR BijUMcx7zasCd7UfBhIJHe YTY0kOteBQbnk1MnPGYoQ8 4obLWgj2B8 JXEulRvipAOeEcFxlWZ1wK 8lBUhsdppab6rcvdzeXav4 zb01dEEpa9G7oUD9L7Kajv Y8RLKuxWYp HrrgpRXRxD3lruboq6xcjs fsKrSdVKVkTYk1CWa6YXYy hDhiTvIyJT57CIJ8VUYpub RbW8ExKNFp wUemCnZ0m5P8Dl7XY3PTVw ufS0PBZFARKBiwjCS+PC90 qy52J9AkHhorGdy4UWBeTN P4bMJ5jV1i QRQbVLcmt2V3nFE1V6Xryl Yenu3yo1ukYWNvPWdzR05x aYOas8E3CBBaoGW2QXEjtU aoWrIxuF42 Oyc+KDUpkFbwc4WqBebej7 omw5wusBh3ClqmITWyfhOd pQyaICJ4c9IpMt6uPXHrgB Q4bKX1cS3h DpHaCmT3CNmwW300LpBavA RbOnfaU74hS6BjkOD+PHRy Haz0XDXrhCdbHA1wG3DyHP RpbmctbGVm uWhgBB1vOBJmeknmICJjeY 7vDZDtE2l4GdJbNdC9QAhh G1HpXAZrdlrkEf85mA5qKj BcPfR1UEjd U4EvjwM7EDXjuMXhXJeyVP I2A44yi0B4XDEjLZVrOSW0 nPG2tZ3goJxtoqfqlHDjhC sgdmVydGlj PIsrRCkwW341FTVinWtkMy NvZGluZyBEYXRlOiAgMDQv MDIvMjAyNDwvdGQ+PHRkIH O0rDgkIREt fVPtDMjqOj9ghHkpoUhzIU 5gBLDlxtzuEFNomB5kTSMl tIMmeJpoDK7iBQGcfaozd2 50IdUcPSJ3 TFToyZZqP5YgeO8dHwWdQJ GyPWItH1GloLYeTOplI113 MFfvLcL9RCNsyvRbD1UsXG FsaWduOiB0 o7O7Tx1Tl3KjawpcU6HirH UdMbLsDgfnZOm4X7KsQxlo dHI+HE39WOXxHQ52JIm1BG Y4zWycQWnq OMPtZ0FqdK8tKuImYXYqXO RkOyc+PHRhYmxlIHdpZHRo AHbbWIFpQhHqtOtnYK4pGg 9yZGVyLWNv nFzstZNyUpQxq7eiPTXyES arHG2wdTrbH7UvlGF7IWWn l9q1Ap73K55kG1BklJT+PG AprFV1tPU9 sN2kBwKdTjY8NXzzA821Vv CznOWpIbyqn0jfb9umqNi9 SeL3UGKtnoQavShgDYW9x4 RrPd17N65u IHdpZHRoPSIxNSUiIHZhbG rzmb9vsR3cYt1+PGNvbCB3 wIY0nI3vEyKeMiK4DSbxH0 49InRvcCIv Qyefj8pwr0pvkUm0HeRuKZ FxsoIgsNsjPBF9g2KoAz97 R7BceJlvx6ZcKky6gq28oH Nbr0S8hQK7 G2ZzDMOrtgkcoEEuxRdeNZ 0zOAZskhqvOFOnqJ2xSHQw J0t5KvOgRrT2HCtpG5Eeyp D4OFZopTLe HPHzlXMUeH0tmjlkq0iyjg kvKsStNFElVZk7QSh0DJPi yIjlWoQdQYK7BcK8QHV0zD EmxZ7avHqf ggittV3oDvu+UIH4sXUheI ACFJ2bSsfwmKR+PHRkIHN0 kSnrSNlaYXEujZ1rKMAfS0 e5TaHgArU4 KOfdD4YtpqH9FYKkrXPtJC CdjDXYaV9xmrgyf4oxwxra QxNxPWXlMHu3ZUh9PWBszR duOiBsZWZ0 PxF5EON6oMMdiX4blSoark xvjA8vOwo+QmlydGggRGF0 QUc7A7RxEyi8QUYzyXcoSF 0ncGFkZGlu Tz0nfFmefXrqLR7nNZZhyx hyy951XsJzu6rfDCPatHNs TWgvROH1P66rz7E1OMFkAD XxBSK8bJD1 oF1ivHraksvvcMWqeDyphz NzlHrdLLtjOFjtC541UHWi cQktTmNqJMz6P1KaKzz7BA ReoVhdOU5k bDYsNKzzPw4cfUknxTnaCW 4tHQNxzqoqh382YxGge2vn CJOegSFoYTnwCVX3K40hj9 Q3MAGzWNCw MCC6lLV4rJ6yhIyyundnwH VmdDsgdmVydGljYWwtYWxp X811WJCxuHhfEfEjsSu8V1 KrQux1AUJe vWcxOK8etJAcFWglTr7nzT hnlFyiOL0qBAAwbhaer867 YjRqq0sqCQYyaKKdBYroUC J8T63uk1R7 CRNbDPYfGIK4tCO4gG9laP lnbjogbGVmdDsgdmVydGlj QGelGMwoU842ZXQuwJsyLd BhdGllbnQg JKcaHMc0J8ZeMkkpdSJ+PC 27BACmHD54jJWjoTMli8dt gWd3TyGvABEuGII4oJybMW hbo1NuCTFw H89uqKXok9Y0PCCfvTzgbA QdVzLlbCY0tT7wEVeomdak z7bnlimqUpsuv4pfrg26eF 21Q08kLUuz ZHRoPSIzMCUiIHZhbGlnbj 1hdT4gGz4+JRSayDW6tAF9 rG9oOJFbPhM3BUimZ841Ua RvcCIvPjxj l5ibl1mewXc8DbL9VJXzca DxtVdqGAY8m0LgEy62C50a IHdpZHRoPSIyMCUiIHZhbG uvba3riR1s Ii8+FUZjfNE6xRC9nI3fXx VgZuQ1UEnnO044UcLbcJTu OkvaZ87sS6EueCU+PHRyPj s1VCHpeWrz QV5xuUYpCDggQa4fTWB9Te HzTsGaXYobX7PgQNSclowg npkdeLZ2WASqEVMucT53Bz 9udDogMTBw wUNCbK5autamk1dcasysZx BrKLCvWTr1TUm4NYYejYws NdKdPIU7OrQ9OCO2iYFdoA 1hbGlnbjog vP3kO8KcTBMfzhpxZh95aE 1yQcTyKqW6EMccSks+U0xB VUdIVEVSLCBQQVRSSUNJQT wvdGQ+PHRk JBS1zTvzPPipCBEzsA5pHR FtD0w8UlKsVgW5GAnuL4Si GBRpildcHt26lL7gZrNwYf N1JNlqY4Lt csO3FBVxjWXvPAghLDC8W0 3tk1F1TYNyIOMbDNW9nYQ9 jS9qeNkfjasvgVRzwHswus VydGljYWwt NXkgY215KBDmoSwtRsBlUw MdVgX7Lay4I0LrJfg3FAVn zVwmYD7mfKJqFOqfOz2qzL ggpXpoCQ5d BEFeeffkURIdkY6xWLDtiZ MsxAmzBU1dVYNvfvmof996 CqThOFB0ARZayPKbI7FemX 9yOiAjMDAw MWAjY1RqeBSnLQcmU698GX shAuZ2OMTewrAcA0AnRJKm oFaiZoB1v7K5Bx92JrPRWN FyczwvdGQ+ ZHGzPBD0yYxbBJudETXujF 2vTAFiX7r9KxNcPzD6CMsl C2RaAGNqumncWz48iI1iFb TkLeE7KNfj S1WlmmE2FMEnvZZkQBefXZ P6W78nk1O5KYWgMWNaZNY5 uUW3xJ6tnEytszuitYSywO sgdmVydGlj BGtsOHqbS237BLBlsVjwCh ZFTUFMRTwvdGQ+PHRkIHN0 lRmdEVczONToxF9eWVSkZ1 z0LgLvTaA6 GRrbP3SkLJXrckbeFc08vA 1mTtRrNtO5VPdcY0ZrvnA7 SXTtdJRwTMcuQMR1Y52er0 P9QWTyMUXa QCB0fKT3eQ9wsPmmzjzuzV VmdDsgdmVydGljYWwtYWxp S781LRIlmFfwTv9ZVV35GJ 48L4IwZsst dGFibGU+PHRhYmxlIHdpZH NgGVcwTVHhEvQkuZfyEU4j Iw0dJJZgFMAavPacaZHqTi Hge0mlTJTb SOunKF2utGiiR2DgfXT1NM Dkq2s3Ds00D61fV7LmsFS+ EJMbzLA7aHS9sD5nGlXnNn E8GDwxA938 ThKqqYTwJuerq8jnm4srnU g6BvXcZNQrtqHjoHufXKF9 v0MeRx21U31lSYjlFLQbXE IyMCUiIHZh cNdoyh5tcM8zHk4+PGNvbC G6qUL0vD8eDgOyLcW3CVqa R253AqWwjZLoTvhsN22tF1 JvdXA+PHRy Xgc2NWNndEshWN8vnCIgFM nbHh3iGUR9PgCzKqKbMYnl E0PgCSFtatsktzzblUO5KK YvKUCtuS52 Mh9tnMggKs1oGCIlTGT8FU GieOLjD9YlbN1eXtFwLVRx QZLmK8ZhcBPmIEsvU037BP beTwN5LEIv beKgU2GuMAXotGppJdR0c4 A2Hr1MuInfpKHaFG0aVqOa QGu5Y7ElJcm2QCMdyQjkOY 0ncGFkZGlu Kw3jvQcobLvpNC9gSFXugg tzx005CfLzi8ubIZAvvVQr HKhmFVO1A28eu6B8ZSUgBE QjGNL4lVM8 mB9ioYvlqjqqcSPgbNgxvl XlgVrbMPgoQZkzR598TUYz aNzdAyNRZwt3P3WbNex8JI XitZjeRJ2t jZYfPMajPy9eqHhzaQzgAW 1mUJSpwyjxr922AcLfc3cm FQTayREoAPhiDBZ0F65ji1 G8JFPeDYPm BUD8vYS8nP7jnGjokxzchH VmdDsgdmVydGljYWwtYWxp A397VNSxdDwbJj9RFaq8K1 NeEce6ZAFt aJvnFN8buMGtSTdsBq7ceP obuVaqAY0rMPCjylfce935 TjPhh7usUNCzpCQvNOxsQQ N5P89gk7V6 JFFzFZUsDFT5rEV3lW0elB lnbjogbGVmdDsgdmVydGlj OHwrGNfcD416GVKrpNutGc BheWVyOjwv dGQ+NR96xa21E4GzCdviZf w6MTQmBVH9vKV4cV8zKLQb PKrrw8V2xJT7H3HlmlQxlt 4st6dyFEXa ZTo (more content not included)... Normal [facility] 11-18-2023 Hematocrit (Bld) [Volume fraction] 29.1 % Low 33.7-40.4 [facility] Comment on above: Performed By: #### 5 [id number] #### [facility] (DEFAULT) [address] [place] [address] Hemoglobin (Bld) [Mass/Vol] 9.3 g/dL Low 11.3-15.9 [facility] Comment on above: Performed By: #### 5 [id number] #### [facility] (DEFAULT) [address] [place] [address] Provider Orderson 11-18-2023 Provider Orders [id number]#[id number] 0OTGTIFF Normal [facility] BASIC METABOLIC PANLon 11-13 Anion gap [Moles/Vol] 7 mmol/L Normal 5-15 [facility] Comment on above: Performed By: #### 6 793-4, 97144-3, 2157-6, BMP, FEPR, CBCA #### [facility] ([id number]) [address], [address] [place] [address] Calcium [Mass/Vol] 8.4 mg/dL Low 8.5-10.5 [facility] Comment on above: Performed By: #### 6 793-4, 88328-7, 2156-6, BMP, FEPR, CBCA #### [facility] ([id number]) [address], [address] [place] [address] Chloride [Moles/Vol] 103 mmol/L Normal 98-109 [facility] Comment on above: Performed By: #### 6 793-4, 03947-6, 2156-6, BMP, FEPR, CBCA #### [facility] ([id number]) [address], [address] [place] [address] CO2 [Moles/Vol] 29 mmol/L Normal 22-32 [facility] Comment on above: Performed By: #### 6 793-4, 79304-2, 2156-6, BMP, FEPR, CBCA #### [facility] ([id number]) [address], [address] [place] [address] Creatinine [Mass/Vol] 0.64 mg/dL Normal 0.40-1.00 [facility] Comment on above: Result Comment: METH OD TRACEABLE TO IDMS STANDARD Performed By: #### 6 793-4, 85884-4, 2157-6, BMP, FEPR, CBCA #### [facility] ([id number]) [address], [address] [place] [address] eGFR (CKD-EPI) NON-RACE DEPENDENT >90 Normal >59 [facility] Comment on above: Result Comment: Reported eGFR is based on the CKD-EPI 2020 equation that does not use a race coefficient. Performed By: #### 6 793-4, 25267-2, 2157-6, BMP, FEPR, CBCA #### [facility] ([id number]) [address] [address] Glucose [Mass/Vol] 109 mg/dL High 65-99 [facility] Comment on above: Performed By: #### 6 793-4, 44040-8, 2156-6, BMP, FEPR, CBCA #### [facility] ([id number]) [address] [address] Potassium [Moles/Vol] 4.1 mmol/L Normal 3.5-5.0 [facility] Comment on above: Performed By: #### 6 793-4, 03276-9, 2156-6, BMP, FEPR, CBCA #### [facility] ([id number]) [address] [address] Sodium [Moles/Vol] 139 mmol/L Normal 134-146 [facility] Comment on above: Performed By: #### 6 793-4, 39621-6, 215-6, BMP, FEPR, CBCA #### [facility] ([id number]) [address] [address] Urea nitrogen [Mass/Vol] 7 mg/dL Normal 5-23 [facility] Comment on above: Performed By: #### 6 793-4, 70245-8, 2156, BMP, FEPR, CBCA #### [facility] ([id number]) [address] [address] CBC AND AUTO DIFFon 11-14-19 24 ABSOLUTE BASOPHIL 0.1 X10E9/L Normal 0.0-0.2 [facility] Comment on above: Performed By: #### 6 793-4, 68954-7, 2157-01, BMP, FEPR, CBCA #### [facility] ([id number]) [address], [address] [place] [address] Band form neutrophils/100 WBC (Bld) 5.0 % Normal [facility] Comment on above: Performed By: #### 6 793-4, 60963-4, 2157-01, BMP, FEPR, CBCA #### [facility] ([id number]) [address], [facility] [address] [place] [address] Basophils/100 WBC (Bld) 1.0 % Normal [facility] Comment on above: Performed By: #### 6 793-4, 90507-6, 2157-01, BMP, FEPR, CBCA #### [facility] ([id number]) [address], [address] [place] [address] Eosinophils (Bld) [#/Vol] 0.1 10*3/uL Normal 0.0-0.4 [facility] Comment on above: Performed By: #### 6 793-4, 45522-1, 2157-01, BMP, FEPR, CBCA #### [facility] ([id number]) [address], [address] [address] Eosinophils/100 WBC (Bld) 1.0 % Normal [facility] Comment on above: Performed By: #### 6 793-4, 50761-4, 2157-01, BMP, FEPR, CBCA #### [facility] ([id number]) [address], [address] [place] [address] Erythrocyte distribution width (RBC) [Ratio] 15.1 % High 11.5-15.0 [facility] Comment on above: Performed By: #### 6 793-4, 60308-0, 2157-01, BMP, FEPR, CBCA #### [facility] ([id number]) [address], [address] [place] [address] Hematocrit (Bld) [Volume fraction] 22.4 % Low 35-47 [facility] Comment on above: Performed By: #### 6 793-4, 54958-7, 2156-6, BMP, FEPR, CBCA #### [facility] ([id number]) [address], [address] [address] Lymphocytes (Bld) [#/Vol] 1.7 10*3/uL Normal 1.0-3.5 [facility] Comment on above: Performed By: #### 6 793-4, 80863-0, 2157-01, BMP, FEPR, CBCA #### [facility] ([id number]) [address], [address] [address] Lymphocytes/100 WBC (Bld) 23.0 % Normal [facility] Comment on above: Performed By: #### 6 793-4, 61711-9, 2157-01, BMP, FEPR, CBCA #### [facility] ([id number]) [address], [address] [place] [address] MCH (RBC) [Entitic mass] 30.4 pg Normal 27-34 [facility] Comment on above: Performed By: #### 6 793-4, 06839-4, 2156-6, BMP, FEPR, CBCA #### [facility] ([id number]) [address], [address] [place] [address] MCHC (RBC) [Mass/Vol] 31.9 g/dL Low 32-36 [facility] Comment on above: Performed By: #### 6 793-4, 96826-2, 215-6, BMP, FEPR, CBCA #### [facility] ([id number]) [address], [address] [place] [address] MCV (RBC) [Entitic vol] 95 fL Normal 80-100 [facility] Comment on above: Performed By: #### 6 793-4, 84532-7, 2156-6, BMP, FEPR, CBCA #### [facility] ([id number]) [address], [facility] [address] [place] [address] Metamyelocytes/100 WBC (Bld) 1.0 % Normal [facility] Comment on above: Performed By: #### 6 793-4, 19756-0, 2156-, BMP, FEPR, CBCA #### [facility] ([id number]) [address], [facility] [address] [place] [address] Monocytes (Bld) [#/Vol] 0.7 10*3/uL Normal 0-0.9 [facility] Comment on above: Performed By: #### 6 793-4, 74631-5, 2156-6, BMP, FEPR, CBCA #### [facility] ([id number]) [address], [facility] [address] [place] [address] Monocytes/100 WBC (Bld) 10.0 % Normal [facility] Comment on above: Performed By: #### 6 793-4, 43920-8, 2156-6, BMP, FEPR, CBCA #### [facility] ([id number]) [address], [address] [place] [address] MYELOCYTE 2.0 % Normal [facility] Comment on above: Performed By: #### 6 793-4, 82554-5, 2156-6, BMP, FEPR, CBCA #### [facility] ([id number]) [address], [address] [place] [address] Neutrophils (Bld) [#/Vol] 4.5 10*3/uL Normal 1.5-6.6 [facility] Comment on above: Performed By: #### 6 793-4, 22965-7, 2157-6, BMP, FEPR, CBCA #### [facility] ([id number]) [address], [address] [address] NUCLEATED RBC 2.0 /100 WBC High 0.0-1.0 [facility] Comment on above: Performed By: #### 6 793-4, 96548-2, 215-6, BMP, FEPR, CBCA #### [facility] ([id number]) [address], [address] [address] Platelet mean volume (Bld) [Entitic vol] 7.2 fL Normal 7-12 [facility] Comment on above: Performed By: #### 6 793-4, 30174-2, 2156-6, BMP, FEPR, CBCA #### [facility] ([id number]) [address], [address] [address] Platelets (Bld) [#/Vol] 408 10*3/uL Normal 150-450 [facility] Comment on above: Performed By: #### 6 793-4, 28396-0, 2156-6, BMP, FEPR, CBCA #### [facility] ([id number]) [address] [address] POLYCHROMASIA 1+ Abnormal NONE [facility] Comment on above: Performed By: #### 6 793-4, 07059-5, 2157-6, BMP, FEPR, CBCA #### [facility] ([id number]) [address] [address] RBC COUNT 2.35 X10E12/L Low 3.80-5.20 [facility] Comment on above: Performed By: #### 6 793-4, 30480-4, 2157-6, BMP, FEPR, CBCA #### [facility] ([id number]) [address], [address] [place] [address] SEG NEUTROPHIL 57.0 % Normal [facility] Comment on above: Performed By: #### 6 793-4, 43545-6, 2156-6, BMP, FEPR, CBCA #### [facility] ([id number]) [address], [address] [place] [address] TEARDROP 1+ Abnormal NONE [facility] Comment on above: Performed By: #### 6 793-4, 19912-3, 2156-6, BMP, FEPR, CBCA #### [facility] ([id number]) [address], [address] [address] WBC (Bld) [#/Vol] 7.3 10*3/uL Normal 4.0-11.0 [facility] Comment on above: Performed By: #### 6 793-4, 77840-7, 2156-6, BMP, FEPR, CBCA #### [facility] ([id number]) [address], [address] [place] [address] HGB AND HCTon 11-14-2023 Hematocrit (Bld) [Volume fraction] 21.8 % Low 35-47 [facility] Comment on above: Performed By: #### 6 793-4, 10720-8, 2156-6, BMP, FEPR, CBCA #### [facility] ([id number]) [address], [address] [place] [address] Hemoglobin (Bld) [Mass/Vol] 7.1 g/dL Low 11.7-15.5 [facility] Comment on above: Performed By: #### 6 793-4, 37796-8, 215-6, BMP, FEPR, CBCA #### [facility] ([id number]) [address], [address] [place] [address] MAGNESIUMon 11-14-2023 Magnesium [Mass/Vol] 1.9 mg/dL Normal 1.8-2.6 [facility] Comment on above: Performed By: #### 6 793-4, 89509-8, 2156-6, BMP, FEPR, CBCA #### [facility] ([id number]) [address], [address] [place] [address] BASIC METABOLIC PANLon 11-12 Anion gap [Moles/Vol] 9 mmol/L Normal 5-15 [facility] Comment on above: Performed By: #### 6 793-4, 28690-0, 2156-6, BMP, FEPR, CBCA #### [facility] ([id number]) [address], [address] [place] [address] Calcium [Mass/Vol] 8.4 mg/dL Low 8.5-10.5 [facility] Comment on above: Performed By: #### 6 793-4, 97334-3, 2156-6, BMP, FEPR, CBCA #### [facility] ([id number]) [address], [address] [place] [address] Chloride [Moles/Vol] 102 mmol/L Normal 98-109 [facility] Comment on above: Performed By: #### 6 793-4, 39013-4, 2156-6, BMP, FEPR, CBCA #### [facility] ([id number]) [address], [address] [place] [address] CO2 [Moles/Vol] 28 mmol/L Normal 22-32 [facility] Comment on above: Performed By: #### 6 793-4, 13062-2, 2156-6, BMP, FEPR, CBCA #### [facility] ([id number]) [address], [address] [place] [address] Creatinine [Mass/Vol] 0.59 mg/dL Normal 0.40-1.00 [facility] Comment on above: Result Comment: METH OD TRACEABLE TO IDMS STANDARD Performed By: #### 6 793-4, 80148-6, 2156-6, BMP, FEPR, CBCA #### [facility] ([id number]) [address], [address] [place] [address] eGFR (CKD-EPI) NON-RACE DEPENDENT >90 Normal >59 [facility] Comment on above: Result Comment: Reported eGFR is based on the CKD-EPI 2020 equation that does not use a race coefficient. Performed By: #### 6 793-4, 71938-5, 2156-6, BMP, FEPR, CBCA #### [facility] ([id number]) [address], [address] [place] [address] Glucose [Mass/Vol] 119 mg/dL High 65-99 [facility] Comment on above: Performed By: #### 6 793-4, 34989-2, 2156-6, BMP, FEPR, CBCA #### [facility] ([id number]) [address], [address] [place] [address] Potassium [Moles/Vol] 4.4 mmol/L Normal 3.5-5.0 [facility] Comment on above: Performed By: #### 6 793-4, 42648-2, 2156-6, BMP, FEPR, CBCA #### [facility] ([id number]) [address], [address] [place] [address] Sodium [Moles/Vol] 139 mmol/L Normal 134-146 [facility] Comment on above: Performed By: #### 6 793-4, 33734-8, 215-6, BMP, FEPR, CBCA #### [facility] ([id number]) [address], [address] [place] [address] Urea nitrogen [Mass/Vol] 7 mg/dL Normal 5-23 [facility] Comment on above: Performed By: #### 6 793-4, 75811-2, 2157-01, BMP, FEPR, CBCA #### [facility] ([id number]) [address], [address] [place] [address] CBC AND AUTO DIFFon 11-13-19 24 ABSOLUTE BASOPHIL 0.0 X10E9/L Normal 0.0-0.2 [facility] Comment on above: Performed By: #### 6 793-4, 09706-4, 2157-01, BMP, FEPR, CBCA #### [facility] ([id number]) [address], [address] [place] [address] ABSOLUTE NEUTROPHIL 4.7 X10E9/L Normal 1.5-6.6 [facility] Comment on above: Performed By: #### 6 793-4, 25675-2, 2157-01, BMP, FEPR, CBCA #### [facility] ([id number]) [address], [address] [place] [address] Basophils/100 WBC (Bld) 0.5 % Normal [facility] Comment on above: Performed By: #### 6 793-4, 24065-8, 2157-01, BMP, FEPR, CBCA #### [facility] ([id number]) [address], [address] [address] Eosinophils (Bld) [#/Vol] 0.2 10*3/uL Normal 0.0-0.4 [facility] Comment on above: Performed By: #### 6 793-4, 52741-0, 2156-6, BMP, FEPR, CBCA #### [facility] ([id number]) [address], [address] [place] [address] Eosinophils/100 WBC (Bld) 3.2 % Normal [facility] Comment on above: Performed By: #### 6 793-4, 92641-9, 6, BMP, FEPR, CBCA #### [facility] ([id number]) [address] [address] Erythrocyte distribution width (RBC) [Ratio] 14.8 % Normal 11.5-15.0 [facility] Comment on above: Performed By: #### 6 793-4, 32278-7, 2156-6, BMP, FEPR, CBCA #### [facility] ([id number]) [address] [address] Hematocrit (Bld) [Volume fraction] 22.2 % Low 35-47 [facility] Comment on above: Performed By: #### 6 793-4, 27296-1, 2157-01, BMP, FEPR, CBCA #### [facility] ([id number]) [address] [address] Hemoglobin (Bld) [Mass/Vol] 7.2 g/dL Low 11.7-15.5 [facility] Comment on above: Performed By: #### 6 793-4, 90460-3, 2156-, BMP, FEPR, CBCA #### [facility] ([id number]) [address] [address] Lymphocytes (Bld) [#/Vol] 1.6 10*3/uL Normal 1.0-3.5 [facility] Comment on above: Performed By: #### 6 793-4, 01647-8, 2156-6, BMP, FEPR, CBCA #### [facility] ([id number]) [address] [address] Lymphocytes/100 WBC (Bld) 22.7 % Normal [facility] Comment on above: Performed By: #### 6 793-4, 70722-4, 2157-6, BMP, FEPR, CBCA #### [facility] ([id number]) [address] [place] [address] MCH (RBC) [Entitic mass] 30.2 pg Normal 27-34 [facility] Comment on above: Performed By: #### 6 793-4, 81729-1, 6, BMP, FEPR, CBCA #### [facility] ([id number]) [address], [facility] [address] [place] [address] MCHC (RBC) [Mass/Vol] 32.2 g/dL Normal 32-36 [facility] Comment on above: Performed By: #### 6 793-4, 94201-8, 2157-01, BMP, FEPR, CBCA #### [facility] ([id number]) [address], [facility] [address] [place] [address] MCV (RBC) [Entitic vol] 94 fL Normal 80-100 [facility] Comment on above: Performed By: #### 6 793-4, 90316-6, 2157-01, BMP, FEPR, CBCA #### [facility] ([id number]) [address], [facility] [address] [place] [address] Monocytes (Bld) [#/Vol] 0.5 10*3/uL Normal 0-0.9 [facility] Comment on above: Performed By: #### 6 793-4, 70622-1, 2156-6, BMP, FEPR, CBCA #### [facility] ([id number]) [address], [address] [address] Monocytes/100 WBC (Bld) 7.6 % Normal [facility] Comment on above: Performed By: #### 6 793-4, 33098-6, 6, BMP, FEPR, CBCA #### [facility] ([id number]) [address], [facility] [address] [place] [address] Neutrophils/100 WBC (Bld) 66.0 % Normal [facility] Comment on above: Performed By: #### 6 793-4, 31504-0, 2157-6, BMP, FEPR, CBCA #### [facility] ([id number]) [address] [address] Platelet mean volume (Bld) [Entitic vol] 7.0 fL Normal 7-12 [facility] Comment on above: Performed By: #### 6 793-4, 13790-6, 215-6, BMP, FEPR, CBCA #### [facility] ([id number]) [address] [address] Platelets (Bld) [#/Vol] 382 10*3/uL Normal 150-450 [facility] Comment on above: Performed By: #### 6 793-4, 84628-0, 2156-6, BMP, FEPR, CBCA #### [facility] ([id number]) [address], [address] [address] POLYCHROMASIA 2+ Abnormal NONE [facility] Comment on above: Performed By: #### 6 793-4, 99129-2, 2156-6, BMP, FEPR, CBCA #### [facility] ([id number]) [address] [address] RBC COUNT 2.37 X10E12/L Low 3.80-5.20 [facility] Comment on above: Performed By: #### 6 793-4, 08977-3, 215-6, BMP, FEPR, CBCA #### [facility] ([id number]) [address] [address] STOMATOCYTE 1+ Abnormal NONE [facility] Comment on above: Performed By: #### 6 793-4, 75362-3, 2157-6, BMP, FEPR, CBCA #### [facility] [facility] ([id number]) [address] [place] [address] WBC (Bld) [#/Vol] 7.1 10*3/uL Normal 4.0-11.0 [facility] Comment on above: Performed By: #### 6 793-4, 75906-0, 2157-6, BMP, FEPR, CBCA #### [facility] ([id number]) [address] [place] [address] HGB AND HCTon 11-13-2023 Hematocrit (Bld) [Volume fraction] 23.8 % Low 35-47 [facility] Comment on above: Performed By: #### 6 793-4, 59443-8, 2156-6, BMP, FEPR, CBCA #### [facility] ([id number]) [address], [facility] [address] [place] [address] Hemoglobin (Bld) [Mass/Vol] 7.9 g/dL Low 11.7-15.5 [facility] Comment on above: Performed By: #### 6 793-4, 16995-4, 7-6, BMP, FEPR, CBCA #### [facility] ([id number]) [address] [place] [address] Haptoglobin Nephelometry [Ma ss/Vol]on 11-13-2023 HAPTOGLOBIN 390 mg/dL High 32-228 [facility] Comment on above: Performed By: #### 6 793-4, 14220-0, 7-6, BMP, FEPR, CBCA #### [facility] ([id number]) [address], [address] [place] [address] IRON PROFILEon 11-13-2023 Iron [Mass/Vol] 56 ug/dL Normal 50-170 [facility] Comment on above: Performed By: #### 6 793-4, 53828-4, 2157-6, BMP, FEPR, CBCA #### [facility] ([id number]) [address], [address] [place] [address] IRON BINDING 294 ug/dL Normal 250-425 [facility] Comment on above: Performed By: #### 6 793-4, 61987-8, 2156-6, BMP, FEPR, CBCA #### [facility] ([id number]) [address], [address] [place] [address] IRON SATURATION 19 % SATURATION Normal 15-50 [facility] Comment on above: Performed By: #### 6 793-4, 13310-3, 6, BMP, FEPR, CBCA #### [facility] ([id number]) [address], [address] [place] [address] LDH [Catalytic activity/Vol] on 11-13-2023 LDH 278 U/L High 100-235 [facility] Comment on above: Performed By: #### 6 793-4, 46581-5, 2157-01, BMP, FEPR, CBCA #### [facility] ([id number]) [address], [address] [place] [address] MAGNESIUMon 11-13-2023 Magnesium [Mass/Vol] 1.8 mg/dL Normal 1.8-2.6 [facility] Comment on above: Performed By: #### 6 793-4, 10458-4, 6, BMP, FEPR, CBCA #### [facility] ([id number]) [address], [address] [place] [address] Reticulocytes/100 RBC (Bld)o n 11-13-2023 RETICULOCYTE COUNT 6.4 % High 0.4-2.2 [facility] Comment on above: Performed By: #### 6 793-4, 30960-8, 6, BMP, FEPR, CBCA #### [facility] ([id number]) [address], [address] [place] [address] VITAMIN B12on 11-13-2023 Cobalamin (Vitamin B12) [Mass/Vol] 420 pg/mL Normal 180-914 [facility] Comment on above: Performed By: #### 6 793-4, 00333-5, 2156-6, BMP, FEPR, CBCA #### [facility] ([id number]) [address], [address] [place] [address] BASIC METABOLIC PANLon 11-11 Anion gap [Moles/Vol] 10 mmol/L Normal 5-15 [facility] Comment on above: Performed By: #### 6 793-4, 43313-2, 2156-6, BMP, FEPR, CBCA #### [facility] ([id number]) [address], [address] [place] [address] Calcium [Mass/Vol] 8.6 mg/dL Normal 8.5-10.5 [facility] Comment on above: Performed By: #### 6 793-4, 78928-0, 2156-6, BMP, FEPR, CBCA #### [facility] ([id number]) [address], [address] [place] [address] Chloride [Moles/Vol] 102 mmol/L Normal 98-109 [facility] Comment on above: Performed By: #### 6 793-4, 76525-4, 2156-6, BMP, FEPR, CBCA #### [facility] ([id number]) [address], [address] [place] [address] CO2 [Moles/Vol] 27 mmol/L Normal 22-32 [facility] Comment on above: Performed By: #### 6 793-4, 61452-1, 2156-6, BMP, FEPR, CBCA #### [facility] ([id number]) [address], [address] [place] [address] Creatinine [Mass/Vol] 0.51 mg/dL Normal 0.40-1.00 [facility] Comment on above: Result Comment: METH OD TRACEABLE TO IDMS STANDARD Performed By: #### 6 793-4, 86741-9, 215-6, BMP, FEPR, CBCA #### [facility] ([id number]) [address], [address] [place] [address] eGFR (CKD-EPI) NON-RACE DEPENDENT >90 Normal >59 [facility] Comment on above: Result Comment: Reported eGFR is based on the CKD-EPI 2020 equation that does not use a race coefficient. Performed By: #### 6 793-4, 29691-5, 2156-6, BMP, FEPR, CBCA #### [facility] ([id number]) [address], [address] [place] [address] Glucose [Mass/Vol] 94 mg/dL Normal 65-99 [facility] Comment on above: Performed By: #### 6 793-4, 14830-5, 2156-6, BMP, FEPR, CBCA #### [facility] ([id number]) [address], [address] [place] [address] Potassium [Moles/Vol] 3.9 mmol/L Normal 3.5-5.0 [facility] Comment on above: Performed By: #### 6 793-4, 17034-9, 2156-6, BMP, FEPR, CBCA #### [facility] ([id number]) [address], [address] [place] [address] Sodium [Moles/Vol] 139 mmol/L Normal 134-146 [facility] Comment on above: Performed By: #### 6 793-4, 27731-9, 215-6, BMP, FEPR, CBCA #### [facility] ([id number]) [address], [address] [place] [address] Urea nitrogen [Mass/Vol] 7 mg/dL Normal 5-23 [facility] Comment on above: Performed By: #### 6 793-4, 70652-7, 2156-6, BMP, FEPR, CBCA #### [facility] ([id number]) [address], [facility] [address] [place] [address] CBC AND AUTO DIFFon 11-12-19 24 Band form neutrophils/100 WBC (Bld) 1.0 % Normal [facility] Comment on above: Performed By: #### 6 793-4, 39512-6, 2156-6, BMP, FEPR, CBCA #### [facility] ([id number]) [address], [facility] [address] [place] [address] Eosinophils (Bld) [#/Vol] 0.2 10*3/uL Normal 0.0-0.4 [facility] Comment on above: Performed By: #### 6 793-4, 66257-5, 2156-6, BMP, FEPR, CBCA #### [facility] ([id number]) [address], [address] [address] Eosinophils/100 WBC (Bld) 3.0 % Normal [facility] Comment on above: Performed By: #### 6 793-4, 04090-4, 6, BMP, FEPR, CBCA #### [facility] ([id number]) [address], [facility] [address] [place] [address] Erythrocyte distribution width (RBC) [Ratio] 14.8 % Normal 11.5-15.0 [facility] Comment on above: Performed By: #### 6 793-4, 96370-3, 2156-6, BMP, FEPR, CBCA #### [facility] ([id number]) [address] [address] [place] [address] Hematocrit (Bld) [Volume fraction] 21.8 % Low 35-47 [facility] Comment on above: Performed By: #### 6 793-4, 58526-5, 2156-6, BMP, FEPR, CBCA #### [facility] ([id number]) [address] [address] [place] [address] Hemoglobin (Bld) [Mass/Vol] 7.0 g/dL Low 11.7-15.5 [facility] Comment on above: Performed By: #### 6 793-4, 01991-2, 2156-6, BMP, FEPR, CBCA #### [facility] ([id number]) [address], [address] [address] Lymphocytes (Bld) [#/Vol] 1.8 10*3/uL Normal 1.0-3.5 [facility] Comment on above: Performed By: #### 6 793-4, 87585-5, 6, BMP, FEPR, CBCA #### [facility] ([id number]) [address] [address] Lymphocytes/100 WBC (Bld) 23.0 % Normal [facility] Comment on above: Performed By: #### 6 793-4, 87557-7, 2156-6, BMP, FEPR, CBCA #### [facility] ([id number]) [address] [address] MCH (RBC) [Entitic mass] 29.7 pg Normal 27-34 [facility] Comment on above: Performed By: #### 6 793-4, 49122-1, 2156-6, BMP, FEPR, CBCA #### [facility] ([id number]) [address] [address] MCHC (RBC) [Mass/Vol] 32.2 g/dL Normal 32-36 [facility] Comment on above: Performed By: #### 6 793-4, 62990-2, 2156-6, BMP, FEPR, CBCA #### [facility] ([id number]) [address] [place] [address] MCV (RBC) [Entitic vol] 92 fL Normal 80-100 [facility] Comment on above: Performed By: #### 6 793-4, 56041-0, 2157-01, BMP, FEPR, CBCA #### [facility] ([id number]) [address], [facility] [address] [place] [address] Metamyelocytes/100 WBC (Bld) 1.0 % Normal [facility] Comment on above: Performed By: #### 6 793-4, 84380-8, 2157-01, BMP, FEPR, CBCA #### [facility] ([id number]) [address], [address] [address] Monocytes (Bld) [#/Vol] 0.3 10*3/uL Normal 0-0.9 [facility] Comment on above: Performed By: #### 6 793-4, 92858-5, 2157-01, BMP, FEPR, CBCA #### [facility] ([id number]) [address], [address] [address] Monocytes/100 WBC (Bld) 4.0 % Normal [facility] Comment on above: Performed By: #### 6 793-4, 55207-0, 2157-01, BMP, FEPR, CBCA #### [facility] ([id number]) [address], [address] [address] Neutrophils (Bld) [#/Vol] 5.6 10*3/uL Normal 1.5-6.6 [facility] Comment on above: Performed By: #### 6 793-4, 64897-9, 2157-01, BMP, FEPR, CBCA #### [facility] ([id number]) [address], [address] [place] [address] NUCLEATED RBC 7.0 /100 WBC High 0.0-1.0 [facility] Comment on above: Performed By: #### 6 793-4, 36705-6, 215-6, BMP, FEPR, CBCA #### [facility] ([id number]) [address], [address] [address] Platelet mean volume (Bld) [Entitic vol] 6.9 fL Low 7-12 [facility] Comment on above: Performed By: #### 6 793-4, 30677-5, 2156-6, BMP, FEPR, CBCA #### [facility] ([id number]) [address], [facility] [address] [place] [address] Platelets (Bld) [#/Vol] 332 10*3/uL Normal 150-450 [facility] Comment on above: Performed By: #### 6 793-4, 79593-4, 2156-6, BMP, FEPR, CBCA #### [facility] ([id number]) [address], [address] [address] POLYCHROMASIA 1+ Abnormal NONE [facility] Comment on above: Performed By: #### 6 793-4, 82976-2, 2156-6, BMP, FEPR, CBCA #### [facility] ([id number]) [address], [facility] [address] [place] [address] RBC COUNT 2.36 X10E12/L Low 3.80-5.20 [facility] Comment on above: Performed By: #### 6 793-4, 73313-9, 215-6, BMP, FEPR, CBCA #### [facility] ([id number]) [address], [facility] [address] [place] [address] SEG NEUTROPHIL 68.0 % Normal [facility] Comment on above: Performed By: #### 6 793-4, 77080-0, 2157-6, BMP, FEPR, CBCA #### [facility] ([id number]) [address], [address] [place] [address] WBC (Bld) [#/Vol] 8.0 10*3/uL Normal 4.0-11.0 [facility] Comment on above: Performed By: #### 6 793-4, 79690-3, 2156-6, BMP, FEPR, CBCA #### [facility] ([id number]) [address], [address] [place] [address] HGB AND HCTon 11-12-2023 Hematocrit (Bld) [Volume fraction] 22.2 % Low 35-47 [facility] Comment on above: Performed By: #### 6 793-4, 79230-8, 6, BMP, FEPR, CBCA #### [facility] ([id number]) [address], [address] [place] [address] Hemoglobin (Bld) [Mass/Vol] 7.4 g/dL Low 11.7-15.5 [facility] Comment on above: Performed By: #### 6 793-4, 53789-2, 2156-6, BMP, FEPR, CBCA #### [facility] ([id number]) [address], [address] [place] [address] MAGNESIUMon 11-12-2023 Magnesium [Mass/Vol] 2.0 mg/dL Normal 1.8-2.6 [facility] Comment on above: Performed By: #### 6 793-4, 57521-1, 2156-6, BMP, FEPR, CBCA #### [facility] ([id number]) [address], [address] [place] [address] BASIC METABOLIC PANLon 11-10 Anion gap [Moles/Vol] 10 mmol/L Normal 5-15 [facility] Comment on above: Performed By: #### 6 793-4, 73840-5, 2156-6, BMP, FEPR, CBCA #### [facility] ([id number]) [address], [address] [place] [address] Calcium [Mass/Vol] 8.5 mg/dL Normal 8.5-10.5 [facility] Comment on above: Performed By: #### 6 793-4, 05627-8, 2156-6, BMP, FEPR, CBCA #### [facility] ([id number]) [address], [address] [place] [address] Chloride [Moles/Vol] 99 mmol/L Normal 98-109 [facility] Comment on above: Performed By: #### 6 793-4, 95672-1, 2156-6, BMP, FEPR, CBCA #### [facility] ([id number]) [address], [address] [place] [address] CO2 [Moles/Vol] 27 mmol/L Normal 22-32 [facility] Comment on above: Performed By: #### 6 793-4, 18832-7, 6, BMP, FEPR, CBCA #### [facility] ([id number]) [address], [facility] [address] [place] [address] Creatinine [Mass/Vol] 0.53 mg/dL Normal 0.40-1.00 [facility] Comment on above: Result Comment: METH OD TRACEABLE TO IDMS STANDARD Performed By: #### 6 793-4, 06427-5, 6, BMP, FEPR, CBCA #### [facility] ([id number]) [address], [address] [place] [address] eGFR (CKD-EPI) NON-RACE DEPENDENT >90 Normal >59 [facility] Comment on above: Result Comment: Reported eGFR is based on the CKD-EPI 2020 equation that does not use a race coefficient. Performed By: #### 6 793-4, 49155-2, 2157-6, BMP, FEPR, CBCA #### [facility] ([id number]) [address], [facility] [address] [place] [address] Glucose [Mass/Vol] 125 mg/dL High 65-99 [facility] Comment on above: Performed By: #### 6 793-4, 21684-9, 6, BMP, FEPR, CBCA #### [facility] ([id number]) [address] [address] Potassium [Moles/Vol] 3.3 mmol/L Low 3.5-5.0 [facility] Comment on above: Performed By: #### 6 793-4, 72442-6, 2157-01, BMP, FEPR, CBCA #### [facility] ([id number]) [address] [address] Sodium [Moles/Vol] 136 mmol/L Normal 134-146 [facility] Comment on above: Performed By: #### 6 793-4, 42188-3, 2157-01, BMP, FEPR, CBCA #### [facility] ([id number]) [address] [address] Urea nitrogen [Mass/Vol] 10 mg/dL Normal 5-23 [facility] Comment on above: Performed By: #### 6 793-4, 99064-2, 2157-01, BMP, FEPR, CBCA #### [facility] ([id number]) [address] [address] CBC AND AUTO DIFFon 03-20-20 24 ABSOLUTE BASOPHIL 0.0 X10E9/L Normal 0.0-0.2 [facility] Comment on above: Performed By: #### 6 793-4, 45760-5, 6, BMP, FEPR, CBCA #### [facility] ([id number]) [address] [address] ABSOLUTE NEUTROPHIL 6.4 X10E9/L Normal 1.5-6.6 [facility] Comment on above: Performed By: #### 6 793-4, 46942-9, 2157-01, BMP, FEPR, CBCA #### [facility] ([id number]) [address], [address] [place] [address] Basophils/100 WBC (Bld) 0.2 % Normal [facility] Comment on above: Performed By: #### 6 793-4, 55254-0, 2157-01, BMP, FEPR, CBCA #### [facility] ([id number]) [address], [address] [address] Eosinophils (Bld) [#/Vol] 0.1 10*3/uL Normal 0.0-0.4 [facility] Comment on above: Performed By: #### 6 793-4, 44493-2, 2157-01, BMP, FEPR, CBCA #### [facility] ([id number]) [address], [address] [place] [address] Eosinophils/100 WBC (Bld) 1.5 % Normal [facility] Comment on above: Performed By: #### 6 793-4, 40640-0, 2157-01, BMP, FEPR, CBCA #### [facility] ([id number]) [address], [address] [place] [address] Erythrocyte distribution width (RBC) [Ratio] 14.6 % Normal 11.5-15.0 [facility] Comment on above: Performed By: #### 6 793-4, 58363-0, 2157-01, BMP, FEPR, CBCA #### [facility] ([id number]) [address], [address] [place] [address] Hematocrit (Bld) [Volume fraction] 21.4 % Low 35-47 [facility] Comment on above: Performed By: #### 6 793-4, 89218-3, 2157-6, BMP, FEPR, CBCA #### [facility] ([id number]) [address], [address] [place] [address] Hemoglobin (Bld) [Mass/Vol] 7.3 g/dL Low 11.7-15.5 [facility] Comment on above: Performed By: #### 6 793-4, 27448-9, 2156-6, BMP, FEPR, CBCA #### [facility] ([id number]) [address], [address] [address] Lymphocytes (Bld) [#/Vol] 1.1 10*3/uL Normal 1.0-3.5 [facility] Comment on above: Performed By: #### 6 793-4, 44834-6, 2156-6, BMP, FEPR, CBCA #### [facility] ([id number]) [address], [address] [address] Lymphocytes/100 WBC (Bld) 13.0 % Normal [facility] Comment on above: Performed By: #### 6 793-4, 75088-3, 2156-6, BMP, FEPR, CBCA #### [facility] ([id number]) [address], [facility] [address] [place] [address] MCH (RBC) [Entitic mass] 30.7 pg Normal 27-34 [facility] Comment on above: Performed By: #### 6 793-4, 60169-6, 2156-6, BMP, FEPR, CBCA #### [facility] ([id number]) [address], [facility] [address] [place] [address] MCHC (RBC) [Mass/Vol] 34.0 g/dL Normal 32-36 [facility] Comment on above: Performed By: #### 6 793-4, 12990-6, 215-6, BMP, FEPR, CBCA #### [facility] ([id number]) [address] [address] [place] [address] MCV (RBC) [Entitic vol] 90 fL Normal 80-100 [facility] Comment on above: Performed By: #### 6 793-4, 86640-5, 2156-6, BMP, FEPR, CBCA #### [facility] ([id number]) [address] [address] [place] [address] Monocytes (Bld) [#/Vol] 0.9 10*3/uL Normal 0-0.9 [facility] Comment on above: Performed By: #### 6 793-4, 38275-2, 2157-01, BMP, FEPR, CBCA #### [facility] ([id number]) [address] [address] Monocytes/100 WBC (Bld) 10.0 % Normal [facility] Comment on above: Performed By: #### 6 793-4, 47565-2, 2156-, BMP, FEPR, CBCA #### [facility] ([id number]) [address] [address] Neutrophils/100 WBC (Bld) 75.3 % Normal [facility] Comment on above: Performed By: #### 6 793-4, 88164-6, 2156-6, BMP, FEPR, CBCA #### [facility] ([id number]) [address] [address] [place] [address] Platelet mean volume (Bld) [Entitic vol] 6.7 fL Low 7-12 [facility] Comment on above: Performed By: #### 6 793-4, 14544-3, 2156-6, BMP, FEPR, CBCA #### [facility] ([id number]) [address] [address] [place] [address] Platelets (Bld) [#/Vol] 296 10*3/uL Normal 150-450 [facility] Comment on above: Performed By: #### 6 793-4, 17278-3, 2156-6, BMP, FEPR, CBCA #### [facility] ([id number]) [address] [place] [address] RBC COUNT 2.37 X10E12/L Low 3.80-5.20 [facility] Comment on above: Performed By: #### 6 793-4, 32599-8, 2156-6, BMP, FEPR, CBCA #### [facility] ([id number]) [address] [place] [address] WBC (Bld) [#/Vol] 8.5 10*3/uL Normal 4.0-11.0 [facility] Comment on above: Performed By: #### 6 793-4, 85222-2, 2156-6, BMP, FEPR, CBCA #### [facility] ([id number]) [address], [address] [place] [address] MAGNESIUMon 11-11-2023 Magnesium [Mass/Vol] 2.2 mg/dL Normal 1.8-2.6 [facility] Comment on above: Performed By: #### 6 793-4, 71673-1, 2156-6, BMP, FEPR, CBCA #### [facility] ([id number]) [address], [address] [place] [address] Magnesium [Mass/Vol] 1.6 mg/dL Low 1.8-2.6 [facility] Comment on above: Performed By: #### 6 793-4, 84553-2, 215-6, BMP, FEPR, CBCA #### [facility] ([id number]) [address], [address] [place] [address] POTASSIUMon 11-11-2023 Potassium [Moles/Vol] 3.9 mmol/L Normal 3.5-5.0 [facility] Comment on above: Performed By: #### 6 793-4, 24894-6, 215-6, BMP, FEPR, CBCA #### [facility] ([id number]) [address], [address] [place] [address] BASIC METABOLIC PANLon 11-09 Anion gap [Moles/Vol] 9 mmol/L Normal 5-15 [facility] Comment on above: Performed By: #### 6 793-4, 79809-2, 215-6, BMP, FEPR, CBCA #### [facility] ([id number]) [address], [address] [place] [address] Calcium [Mass/Vol] 8.0 mg/dL Low 8.5-10.5 [facility] Comment on above: Performed By: #### 6 793-4, 83026-9, 2156-6, BMP, FEPR, CBCA #### [facility] ([id number]) [address], [address] [place] [address] Chloride [Moles/Vol] 96 mmol/L Low 98-109 [facility] Comment on above: Performed By: #### 6 793-4, 27068-7, 2156-6, BMP, FEPR, CBCA #### [facility] ([id number]) [address], [address] [place] [address] CO2 [Moles/Vol] 28 mmol/L Normal 22-32 [facility] Comment on above: Performed By: #### 6 793-4, 67785-2, 2157-6, BMP, FEPR, CBCA #### [facility] ([id number]) [address], [address] [place] [address] Creatinine [Mass/Vol] 0.65 mg/dL Normal 0.40-1.00 [facility] Comment on above: Result Comment: METH OD TRACEABLE TO IDMS STANDARD Performed By: #### 6 793-4, 70203-2, 2157-6, BMP, FEPR, CBCA #### [facility] ([id number]) [address] [address] eGFR (CKD-EPI) NON-RACE DEPENDENT >90 Normal >59 [facility] Comment on above: Result Comment: Reported eGFR is based on the CKD-EPI 2020 equation that does not use a race coefficient. Performed By: #### 6 793-4, 89477-7, 2157-6, BMP, FEPR, CBCA #### [facility] ([id number]) [address], [address] [address] Glucose [Mass/Vol] 136 mg/dL High 65-99 [facility] Comment on above: Performed By: #### 6 793-4, 12555-1, 2157-6, BMP, FEPR, CBCA #### [facility] ([id number]) [address] [address] Potassium [Moles/Vol] 3.6 mmol/L Normal 3.5-5.0 [facility] Comment on above: Performed By: #### 6 793-4, 53905-7, 2156-6, BMP, FEPR, CBCA #### [facility] ([id number]) [address] [address] Sodium [Moles/Vol] 133 mmol/L Low 134-146 [facility] Comment on above: Performed By: #### 6 793-4, 97880-9, 2157-6, BMP, FEPR, CBCA #### [facility] ([id number]) [address] [address] Urea nitrogen [Mass/Vol] 14 mg/dL Normal 5-23 [facility] Comment on above: Performed By: #### 6 793-4, 35546-8, 2157-6, BMP, FEPR, CBCA #### [facility] ([id number]) [address], [address] [place] [address] COMPLETE BLOOD COUNTon 11-09 Erythrocyte distribution width (RBC) [Ratio] 14.0 % Normal 11.5-15.0 [facility] Comment on above: Performed By: #### 6 793-4, 93389-2, 2156-6, BMP, FEPR, CBCA #### [facility] ([id number]) [address], [address] [place] [address] Hematocrit (Bld) [Volume fraction] 22.8 % Low 35-47 [facility] Comment on above: Performed By: #### 6 793-4, 57660-6, 2156-6, BMP, FEPR, CBCA #### [facility] ([id number]) [address], [address] [place] [address] Hemoglobin (Bld) [Mass/Vol] 7.5 g/dL Low 11.7-15.5 [facility] Comment on above: Performed By: #### 6 793-4, 79400-4, 2156-6, BMP, FEPR, CBCA #### [facility] ([id number]) [address], [address] [place] [address] MCH (RBC) [Entitic mass] 29.8 pg Normal 27-34 [facility] Comment on above: Performed By: #### 6 793-4, 94660-8, 2156-6, BMP, FEPR, CBCA #### [facility] ([id number]) [address], [address] [place] [address] MCHC (RBC) [Mass/Vol] 32.8 g/dL Normal 32-36 [facility] Comment on above: Performed By: #### 6 793-4, 65774-1, 215-6, BMP, FEPR, CBCA #### [facility] ([id number]) [address], [facility] [address] [place] [address] MCV (RBC) [Entitic vol] 91 fL Normal 80-100 [facility] Comment on above: Performed By: #### 6 793-4, 16844-8, 215-6, BMP, FEPR, CBCA #### [facility] ([id number]) [address], [address] [address] Platelet mean volume (Bld) [Entitic vol] 6.8 fL Low 7-12 [facility] Comment on above: Performed By: #### 6 793-4, 51589-6, 2156-6, BMP, FEPR, CBCA #### [facility] ([id number]) [address] [address] Platelets (Bld) [#/Vol] 318 10*3/uL Normal 150-450 [facility] Comment on above: Performed By: #### 6 793-4, 97834-4, 2156-6, BMP, FEPR, CBCA #### [facility] ([id number]) [address] [address] RBC COUNT 2.51 X10E12/L Low 3.80-5.20 [facility] Comment on above: Performed By: #### 6 793-4, 31113-9, 2156-6, BMP, FEPR, CBCA #### [facility] ([id number]) [address] [address] WBC (Bld) [#/Vol] 9.9 10*3/uL Normal 4.0-11.0 [facility] Comment on above: Performed By: #### 6 793-4, 61453-8, 215-6, BMP, FEPR, CBCA #### [facility] ([id number]) [address] [address] [place] [address] FERRITINon 11-10-2023 Ferritin [Mass/Vol] 92 ng/mL Normal 11-307 [facility] Comment on above: Performed By: #### 6 793-4, 67439-5, 2157-6, BMP, FEPR, CBCA #### [facility] ([id number]) [address], [address] [place] [address] Folate [Mass/Vol]on 11-10-19 24 FOLIC ACID 9.1 ng/mL Normal >5.8 [facility] Comment on above: Result Comment: NEW REFERENCE RANGE Performed By: #### 6 793-4, 35524-1, 2157-6, BMP, FEPR, CBCA #### [facility] ([id number]) [address], [address] [place] [address] IRON PROFILEon 11-10-2023 Iron [Mass/Vol] ug/dL Low 50-170 [facility] Comment on above: Performed By: #### 6 793-4, 62774-3, 2157-6, BMP, FEPR, CBCA #### [facility] ([id number]) [address], [address] [place] [address] IRON BINDING 273 ug/dL Normal 250-425 [facility] Comment on above: Performed By: #### 6 793-4, 42569-9, 2157-6, BMP, FEPR, CBCA #### [facility] ([id number]) [address], [address] [place] [address] IRON SATURATION <4 Low 15-50 [facility] Comment on above: Performed By: #### 6 793-4, 42217-4, 2157-6, BMP, FEPR, CBCA #### [facility] ([id number]) [address], [address] [place] [address] Reticulocytes/100 RBC (Bld)o n 11-10-2023 RETICULOCYTE COUNT 2.8 % High 0.4-2.2 [facility] Comment on above: Performed By: #### 6 793-4, 95006-7, 2157-6, BMP, FEPR, CBCA #### [facility] ([id number]) [address], [address] [place] [address] VITAMIN B12on 11-10-2023 Cobalamin (Vitamin B12) [Mass/Vol] 133 pg/mL Low 180-914 [facility] Comment on above: Performed By: #### 6 793-4, 58432-9, 2157-6, BMP, FEPR, CBCA #### [facility] ([id number]) [address], [address] [place] [address] XR ANKLE LT MIN 3 VWSon 10-22 [...] Jose Bai MD on 11/10/2023 4:45 PM Normal [facility] [id number] 11-09-2023 [id number] DATE OF VISIT: 11/09/2023 PREOPERATIVE DIAGNOSIS: Periprosthetic left femur fracture around pre-existing left total hip arthroplasty (M97.02XA). POSTOPERATIVE DIAGNOSIS: 1. Periprosthetic left femur fracture around pre-existing left total hip arthroplasty (M97.02XA). 2. Morbid obesity, with a body mass index of 41.6. OPERATION PERFORMED: 1. Revision left total hip arthroplasty (34208), utilizing the following components from [employer]: a. Biomet, G7 [place] Titanium acetabular shell, multi- hole, 48 mm outer diameter shell size, liner size C. b. [place], G7 acetabular system Vivacit-E vitamin E highly cross-linked polyethylene liner, neutral, 32 mm internal diameter, liner size C. c. Biomet, Biolox Delta modular ceramic head, type 1 taper, +3 mm neck length. d. Biomet, Shani modular revision hip system, STS distal stem, 14 mm, 190 mm length, uncemented Interlok. e. Biomet, Shani modular revision hip system, standard cone proximal body, size C, type 1 taper. f. 4 screws in the acetabular cup, all 6.5 mm [place] self-tapping bone screws, measuring, from superior to posterior, 50, 20, 15, and 15 mm. g. G2, [place] 1.8 mm diameter cobalt chrome, braided cerclage cable ready wires around the proximal femur. 2. Application of negative pressure therapy dressing, [facility] wound VAC (19727.59). SURGEON: Jalen Pierce MD. OUTPATIENT CODING SPECIALIST: Christy Martinez, PGY-4, orthopedic surgery resident from the [facility]. ANESTHESIA: General. ESTIMATED BLOOD LOSS: 1150 mL. FLUIDS: 675 mL of autologous red blood cells from the Cell Saver, 3700 mL of crystalloid, 750 mL of 5% albumin. URINARY OUTPUT: 1350 mL. POSTOPERATIVE DRAINS: 1 closed suction 10-Lao Hemovac drain brought out through a small separate stab incision anterior to the surgical wound. INDICATIONS: Og Badillo is a 58-year-old woman who had a left total hip arthroplasty performed by an orthopedic surgeon in the [place], [place] area about 3 weeks ago. Over [...] Intramedullary reaming (more content not included)... Normal [facility] ANAEROBE CULTUREon 4 Bacteria identified Anaer cx Nom (Unsp spec) SPECIMEN NOTES SPECIMEN B CULTURE RESULTS NO GROWTH 14 DAYS Normal [facility] Comment on above: Performed By: #### 6 793-4, 07210-4, 2157-6, BMP, FEPR, CBCA #### [facility] ([id number]) [address], [address] [place] [address] Bacteria identified Anaer cx Nom (Unsp spec) SPECIMEN NOTES SPECIMEN A CULTURE RESULTS NO GROWTH 14 DAYS Normal [facility] Comment on above: Performed By: #### 6 793-4, 99878-7, 2156-6, BMP, FEPR, CBCA #### [facility] ([id number]) [address], [address] [place] [address] BASIC METABOLIC PANLon 11-08 Anion gap [Moles/Vol] 9 mmol/L Normal 5-15 [facility] Comment on above: Performed By: #### 6 793-4, 37102-3, 2156-6, BMP, FEPR, CBCA #### [facility] ([id number]) [address], [address] [place] [address] Calcium [Mass/Vol] 9.0 mg/dL Normal 8.5-10.5 [facility] Comment on above: Performed By: #### 6 793-4, 20816-7, 2156-6, BMP, FEPR, CBCA #### [facility] ([id number]) [address], [address] [place] [address] Chloride [Moles/Vol] 97 mmol/L Low 98-109 [facility] Comment on above: Performed By: #### 6 793-4, 08808-8, 2157-6, BMP, FEPR, CBCA #### [facility] ([id number]) [address], [address] [place] [address] CO2 [Moles/Vol] 30 mmol/L Normal 22-32 [facility] Comment on above: Performed By: #### 6 793-4, 92032-5, 2157-01, BMP, FEPR, CBCA #### [facility] ([id number]) [address] [address] Creatinine [Mass/Vol] 0.70 mg/dL Normal 0.40-1.00 [facility] Comment on above: Result Comment: METH OD TRACEABLE TO IDMS STANDARD Performed By: #### 6 793-4, 29129-9, 6, BMP, FEPR, CBCA #### [facility] ([id number]) [address] [address] eGFR (CKD-EPI) NON-RACE DEPENDENT >90 Normal >59 [facility] Comment on above: Result Comment: Reported eGFR is based on the CKD-EPI 2020 equation that does not use a race coefficient. Performed By: #### 6 793-4, 38555-9, 2157-01, BMP, FEPR, CBCA #### [facility] ([id number]) [address] [address] Glucose [Mass/Vol] 110 mg/dL High 65-99 [facility] Comment on above: Performed By: #### 6 793-4, 76775-8, 2157-01, BMP, FEPR, CBCA #### [facility] ([id number]) [address] [address] Potassium [Moles/Vol] 3.6 mmol/L Normal 3.5-5.0 [facility] Comment on above: Performed By: #### 6 793-4, 32454-2, 6, BMP, FEPR, CBCA #### [facility] ([id number]) [address] [address] Sodium [Moles/Vol] 136 mmol/L Normal 134-146 [facility] Comment on above: Performed By: #### 6 793-4, 63431-8, 2156-6, BMP, FEPR, CBCA #### [facility] ([id number]) [address] [address] [place] [address] Urea nitrogen [Mass/Vol] 11 mg/dL Normal 5-23 [facility] Comment on above: Performed By: #### 6 793-4, 60447-7, 2157-6, BMP, FEPR, CBCA #### [facility] ([id number]) [address] [address] COMPLETE BLOOD COUNTon 11-08 Erythrocyte distribution width (RBC) [Ratio] 14.6 % Normal 11.5-15.0 [facility] Comment on above: Performed By: #### 6 793-4, 73389-6, 2156-6, BMP, FEPR, CBCA #### [facility] ([id number]) [address] [address] Hematocrit (Bld) [Volume fraction] 29.9 % Low 35-47 [facility] Comment on above: Performed By: #### 6 793-4, 09345-5, 2156-6, BMP, FEPR, CBCA #### [facility] ([id number]) [address] [address] Hemoglobin (Bld) [Mass/Vol] 9.9 g/dL Low 11.7-15.5 [facility] Comment on above: Performed By: #### 6 793-4, 78915-7, 2157-6, BMP, FEPR, CBCA #### [facility] ([id number]) [address] [address] MCH (RBC) [Entitic mass] 30.1 pg Normal 27-34 [facility] Comment on above: Performed By: #### 6 793-4, 67540-2, 2157-6, BMP, FEPR, CBCA #### [facility] ([id number]) [address], [address] [place] [address] MCHC (RBC) [Mass/Vol] 33.3 g/dL Normal 32-36 [facility] Comment on above: Performed By: #### 6 793-4, 88890-6, 215-6, BMP, FEPR, CBCA #### [facility] ([id number]) [address], [facility] [address] [place] [address] MCV (RBC) [Entitic vol] 91 fL Normal 80-100 [facility] Comment on above: Performed By: #### 6 793-4, 26941-0, 2156-6, BMP, FEPR, CBCA #### [facility] ([id number]) [address] [address] [place] [address] Platelet mean volume (Bld) [Entitic vol] 6.8 fL Low 7-12 [facility] Comment on above: Performed By: #### 6 793-4, 52976-4, 2156-6, BMP, FEPR, CBCA #### [facility] ([id number]) [address] [address] Platelets (Bld) [#/Vol] 327 10*3/uL Normal 150-450 [facility] Comment on above: Performed By: #### 6 793-4, 23002-8, 2156-6, BMP, FEPR, CBCA #### [facility] ([id number]) [address] [address] [place] [address] RBC COUNT 3.30 X10E12/L Low 3.80-5.20 [facility] Comment on above: Performed By: #### 6 793-4, 36260-1, 215-6, BMP, FEPR, CBCA #### [facility] ([id number]) [address] [address] [place] [address] WBC (Bld) [#/Vol] 6.1 10*3/uL Normal 4.0-11.0 [facility] Comment on above: Performed By: #### 6 793-4, 74507-8, 2156-6, BMP, FEPR, CBCA #### [facility] ([id number]) [address], [address] [place] [address] FLUID CULTUREon 11-09-2023 Bacteria identified Aer cx Nom (Body fld) SPECIMEN NOTES SPECIMEN A GRAM STAIN WHITE BLOOD CELLS PRESENT NO ORGANISMS SEEN ON DIRECT SMEAR FLUID TOO BLOODY TO CONCENTRATE. INTERPRET RESULTS WITH CAUTION A Negative report does not exclude the possibility of infection because results are dependent on adequate specimen collection. CULTURE RESULTS NO GROWTH 5 DAYS Normal [facility] Comment on above: Performed By: #### 6 793-4, 85697-8, 2156-6, BMP, FEPR, CBCA #### [facility] ([id number]) [address], [address] [place] [address] FUNGAL CULTUREon 11-09-2023 Fungus identified Cx Nom (Unsp spec) SPECIMEN NOTES SPECIMEN B FUNGAL SMEAR NO FUNGAL ELEMENTS SEEN ON DIRECT SMEAR CULTURE RESULTS NO FUNGUS ISOLATED AFTER 4 WEEKS Normal [facility] Comment on above: Performed By: #### 6 793-4, 69805-5, 2156-6, BMP, FEPR, CBCA #### [facility] ([id number]) [address], [address] [place] [address] Fungus identified Cx Nom (Unsp spec) SPECIMEN NOTES SPECIMEN A FUNGAL SMEAR NO FUNGAL ELEMENTS SEEN ON CONCENTRATED SMEAR CULTURE RESULTS NO FUNGUS ISOLATED AFTER 4 WEEKS Normal [facility] Comment on above: Performed By: #### 6 793-4, 84279-1, 2156-6, BMP, FEPR, CBCA #### [facility] ([id number]) [address], [address] [place] [address] RAPID CARDIACon 11-09-2023 RILEY'S TEST Normal [facility] Comment on above: Performed By: #### 6 793-4, 63470-8, 6, BMP, FEPR, CBCA #### [facility] ([id number]) [address], [address] [place] [address] Base excess Calc (Bld) [Moles/Vol] 2.5 mmol/L High 0.0-2.0 [facility] Comment on above: Performed By: #### 6 793-4, 50289-0, 2156-6, BMP, FEPR, CBCA #### [facility] ([id number]) [address], [address] [place] [address] Body temperature 98.6 [degF] Normal 37.0 [facility] Comment on above: Performed By: #### 6 793-4, 68863-4, 2156-6, BMP, FEPR, CBCA #### [facility] ([id number]) [address], [address] [place] [address] Glucose [Mass/Vol] 125 mg/dL High 65-99 [facility] Comment on above: Performed By: #### 6 793-4, 38743-5, 2157-01, BMP, FEPR, CBCA #### [facility] ([id number]) [address], [address] [place] [address] HCO3 (Bld) [Moles/Vol] 28.1 mmol/L High 22-26 [facility] Comment on above: Performed By: #### 6 793-4, 17853-0, 6, BMP, FEPR, CBCA #### [facility] ([id number]) [address] [address] [place] [address] Hematocrit (Bld) [Volume fraction] 26 % Low 35-47 [facility] Comment on above: Performed By: #### 6 793-4, 01920-2, 215-6, BMP, FEPR, CBCA #### [facility] ([id number]) [address], [address] [place] [address] Hemoglobin (Bld) [Mass/Vol] 8.6 g/dL Low 11.7-15.5 [facility] Comment on above: Performed By: #### 6 793-4, 87449-1, 2156-6, BMP, FEPR, CBCA #### [facility] ([id number]) [address], [address] [place] [address] INSP. O2 CONC. 100 % Normal [facility] Comment on above: Performed By: #### 6 793-4, 53937-3, 2157-01, BMP, FEPR, CBCA #### [facility] ([id number]) [address], [address] [place] [address] IONIZED CALCIUM 4.7 mg/dL Normal 4.5-5.3 [facility] Comment on above: Performed By: #### 6 793-4, 39401-3, 2157-01, BMP, FEPR, CBCA #### [facility] ([id number]) [address], [address] [place] [address] Oxygen (Bld) [Partial pressure] 147 mm[Hg] High 80-100 [facility] Comment on above: Performed By: #### 6 793-4, 00413-8, 2157-01, BMP, FEPR, CBCA #### [facility] ([id number]) [address], [address] [place] [address] Oxygen saturation in Blood 100.2 % Normal >90 [facility] Comment on above: Performed By: #### 6 793-4, 60661-0, 2157-01, BMP, FEPR, CBCA #### [facility] ([id number]) [address], [address] [place] [address] PCO2 50.8 MMHG High 35-45 [facility] Comment on above: Performed By: #### 6 793-4, 32639-9, 215-6, BMP, FEPR, CBCA #### [facility] ([id number]) [address], [facility] [address] [place] [address] pH (Bld) 7.351 [pH] Normal 7.350-7.450 [facility] Comment on above: Performed By: #### 6 793-4, 30637-8, 2157-6, BMP, FEPR, CBCA #### [facility] ([id number]) [address], [facility] [address] [place] [address] Potassium [Moles/Vol] 3.4 mmol/L Low 3.5-5.0 [facility] Comment on above: Performed By: #### 6 793-4, 53757-3, 2156-6, BMP, FEPR, CBCA #### [facility] ([id number]) [address], [address] [address] SAMPLE SITE NABILA Normal [facility] Comment on above: Performed By: #### 6 793-4, 47384-8, 2156-6, BMP, FEPR, CBCA #### [facility] ([id number]) [address], [address] [address] SAMPLE TYPE Arterial [facility] Comment on above: Performed By: #### 6 793-4, 59253-6, 2157-6, BMP, FEPR, CBCA #### [facility] ([id number]) [address] [address] TISSUE CULTUREon 11-09-2023 Bacteria identified Aer cx Nom (Tiss) SPECIMEN NOTES SPECIMEN B GRAM STAIN 0 WHITE BLOOD CELLS/LPF 0 SQUAMOUS EPITHELIAL CELLS/LPF NO ORGANISMS SEEN CULTURE RESULTS NO GROWTH 3 DAYS [facility] Comment on above: Performed By: #### 6 793-4, 75035-4, 2157-6, BMP, FEPR, CBCA #### [facility] ([id number]) [address], [address] [place] [address] XR ANKLE RT MIN 3 VWSon 10-22 [...] Jose Bai MD on 11/09/2023 10:14 PM Normal [facility] XR FEMUR LT 2+ VIEWSon 11-08 XR FEMUR LT 2+ VIEWS XR FEMUR LT 2+ VIEW S XR FEMUR LT 2+ VIEWS HISTORY: Postop eval. AP and lateral. COMPARISON: 11/07/2023. IMPRESSION: Revision arthroplasty with long femoral stem, multiple proximal femoral cerclage wires. Cutaneous nora. Finalized by Jose Bai MD on 11/09/2023 10:13 PM Normal [facility] XR HIP LT 2-3 VIEWS W OR WO PELVISon 11-09-2023 XR HIP LT 2-3 VIEWS W OR WO PELVIS XR HIP LT 2-3 VIEWS W OR WO PELVIS CLINICAL INFORMATION: total left hip revision in OR 5 IMPRESSION: * Intraoperative fluoroscopy provided. The reference air kerma was 35.01 mGy. Finalized by Lan Claire MD on 11/09/2023 4:29 PM Normal [facility] XR PELVIS MIN 3 VWSon 2023 XR PELVIS MIN 3 VWS XR PELVIS MIN 3 VWS XR PELVIS MIN 3 VWS HISTORY: Postop eval. AP, 2 judet views please. COMPARISON: 11/07/2023. IMPRESSION: No displaced or pelvic fracture. Bilateral femoral arthroplasties, cerclage wires transfixing subtrochanteric left femoral fracture.. Finalized by Jose Bai MD on 11/09/2023 10:13 PM Normal [facility] BASIC METABOLIC PANLon 11-07 Anion gap [Moles/Vol] 11 mmol/L Normal 5-15 [facility] Comment on above: Performed By: #### 6 793-4, 34306-7, 2156-6, BMP, FEPR, CBCA #### [facility] ([id number]) [address], [address] [place] [address] Calcium [Mass/Vol] 8.9 mg/dL Normal 8.5-10.5 [facility] Comment on above: Performed By: #### 6 793-4, 51722-1, 2156-6, BMP, FEPR, CBCA #### [facility] ([id number]) [address], [address] [place] [address] Chloride [Moles/Vol] 98 mmol/L Normal 98-109 [facility] Comment on above: Performed By: #### 6 793-4, 27063-0, 2156-6, BMP, FEPR, CBCA #### [facility] ([id number]) [address], [address] [place] [address] CO2 [Moles/Vol] 26 mmol/L Normal 22-32 [facility] Comment on above: Performed By: #### 6 793-4, 30968-1, 2156-6, BMP, FEPR, CBCA #### [facility] ([id number]) [address], [address] [place] [address] Creatinine [Mass/Vol] 0.73 mg/dL Normal 0.40-1.00 [facility] Comment on above: Result Comment: METH OD TRACEABLE TO IDMS STANDARD Performed By: #### 6 793-4, 88786-2, 2156-6, BMP, FEPR, CBCA #### [facility] ([id number]) [address], [address] [place] [address] eGFR (CKD-EPI) NON-RACE DEPENDENT >90 Normal >59 [facility] Comment on above: Result Comment: Reported eGFR is based on the CKD-EPI 2020 equation that does not use a race coefficient. Performed By: #### 6 793-4, 21803-6, 2157-6, BMP, FEPR, CBCA #### [facility] ([id number]) [address] [address] Glucose [Mass/Vol] 131 mg/dL High 65-99 [facility] Comment on above: Performed By: #### 6 793-4, 06852-7, 2157-6, BMP, FEPR, CBCA #### [facility] ([id number]) [address] [address] Potassium [Moles/Vol] 4.0 mmol/L Normal 3.5-5.0 [facility] Comment on above: Performed By: #### 6 793-4, 08639-2, 2156-6, BMP, FEPR, CBCA #### [facility] ([id number]) [address] [address] Sodium [Moles/Vol] 135 mmol/L Normal 134-146 [facility] Comment on above: Performed By: #### 6 793-4, 73191-8, 2157-6, BMP, FEPR, CBCA #### [facility] ([id number]) [address] [address] Urea nitrogen [Mass/Vol] 9 mg/dL Normal 5-23 [facility] Comment on above: Performed By: #### 6 793-4, 46662-3, 2157-6, BMP, FEPR, CBCA #### [facility] ([id number]) [address] [address] COMPLETE BLOOD COUNTon 11-07 Erythrocyte distribution width (RBC) [Ratio] 14.1 % Normal 11.5-15.0 [facility] Comment on above: Performed By: #### 6 793-4, 70041-5, 2156-6, BMP, FEPR, CBCA #### [facility] ([id number]) [address], [address] [place] [address] Hematocrit (Bld) [Volume fraction] 31.2 % Low 35-47 [facility] Comment on above: Performed By: #### 6 793-4, 81368-5, 2156-6, BMP, FEPR, CBCA #### [facility] ([id number]) [address], [address] [address] Hemoglobin (Bld) [Mass/Vol] 10.2 g/dL Low 11.7-15.5 [facility] Comment on above: Performed By: #### 6 793-4, 16716-6, 2156-6, BMP, FEPR, CBCA #### [facility] ([id number]) [address], [address] [address] MCH (RBC) [Entitic mass] 30.1 pg Normal 27-34 [facility] Comment on above: Performed By: #### 6 793-4, 08286-5, 6, BMP, FEPR, CBCA #### [facility] ([id number]) [address], [address] [address] MCHC (RBC) [Mass/Vol] 32.7 g/dL Normal 32-36 [facility] Comment on above: Performed By: #### 6 793-4, 39745-5, 2156-6, BMP, FEPR, CBCA #### [facility] ([id number]) [address], [address] [address] MCV (RBC) [Entitic vol] 92 fL Normal 80-100 [facility] Comment on above: Performed By: #### 6 793-4, 83950-6, 2156-6, BMP, FEPR, CBCA #### [facility] ([id number]) [address], [address] [place] [address] Platelet mean volume (Bld) [Entitic vol] 6.8 fL Low 7-12 [facility] Comment on above: Performed By: #### 6 793-4, 02889-1, 2156-6, BMP, FEPR, CBCA #### [facility] ([id number]) [address], [facility] [address] [place] [address] Platelets (Bld) [#/Vol] 332 10*3/uL Normal 150-450 [facility] Comment on above: Performed By: #### 6 793-4, 18776-8, 2157-01, BMP, FEPR, CBCA #### [facility] ([id number]) [address], [facility] [address] [place] [address] RBC COUNT 3.39 X10E12/L Low 3.80-5.20 [facility] Comment on above: Performed By: #### 6 793-4, 06535-4, 2156-, BMP, FEPR, CBCA #### [facility] ([id number]) [address] [address] WBC (Bld) [#/Vol] 6.6 10*3/uL Normal 4.0-11.0 [facility] Comment on above: Performed By: #### 6 793-4, 12707-4, 6, BMP, FEPR, CBCA #### [facility] ([id number]) [address] [address] MAGNESIUMon 11-08-2023 Magnesium [Mass/Vol] 2.1 mg/dL Normal 1.8-2.6 [facility] Comment on above: Performed By: #### 6 793-4, 60890-7, 2156-6, BMP, FEPR, CBCA #### [facility] ([id number]) [address], [address] [place] [address] BASIC METABOLIC PANLon 11-06 Anion gap [Moles/Vol] 10 mmol/L Normal 5-15 [facility] Comment on above: Performed By: #### 6 793-4, 06384-9, 2157-6, BMP, FEPR, CBCA #### [facility] ([id number]) [address], [address] [place] [address] Calcium [Mass/Vol] 8.8 mg/dL Normal 8.5-10.5 [facility] Comment on above: Performed By: #### 6 793-4, 86462-0, 2156-6, BMP, FEPR, CBCA #### [facility] ([id number]) [address], [address] [place] [address] Chloride [Moles/Vol] 102 mmol/L Normal 98-109 [facility] Comment on above: Performed By: #### 6 793-4, 59081-9, 215-6, BMP, FEPR, CBCA #### [facility] ([id number]) [address], [address] [place] [address] CO2 [Moles/Vol] 28 mmol/L Normal 22-32 [facility] Comment on above: Performed By: #### 6 793-4, 17239-5, 7-6, BMP, FEPR, CBCA #### [facility] ([id number]) [address], [address] [place] [address] Creatinine [Mass/Vol] 0.62 mg/dL Normal 0.40-1.00 [facility] Comment on above: Result Comment: METH OD TRACEABLE TO IDMS STANDARD Performed By: #### 6 793-4, 94323-2, 2157-6, BMP, FEPR, CBCA #### [facility] ([id number]) [address] [address] eGFR (CKD-EPI) NON-RACE DEPENDENT >90 Normal >59 [facility] Comment on above: Result Comment: Reported eGFR is based on the CKD-EPI 2020 equation that does not use a race coefficient. Performed By: #### 6 793-4, 18270-8, 2157-6, BMP, FEPR, CBCA #### [facility] ([id number]) [address] [address] Glucose [Mass/Vol] 127 mg/dL High 65-99 [facility] Comment on above: Performed By: #### 6 793-4, 34559-8, 2157-6, BMP, FEPR, CBCA #### [facility] ([id number]) [address] [address] Potassium [Moles/Vol] 4.0 mmol/L Normal 3.5-5.0 [facility] Comment on above: Performed By: #### 6 793-4, 62966-1, 2157-6, BMP, FEPR, CBCA #### [facility] ([id number]) [address] [address] Sodium [Moles/Vol] 140 mmol/L Normal 134-146 [facility] Comment on above: Performed By: #### 6 793-4, 00447-1, 2157-6, BMP, FEPR, CBCA #### [facility] ([id number]) [address] [address] Urea nitrogen [Mass/Vol] 8 mg/dL Normal 5-23 [facility] Comment on above: Performed By: #### 6 793-4, 13373-7, 2157-6, BMP, FEPR, CBCA #### [facility] ([id number]) [address] [address] CBC AND AUTO DIFFon 11-07-19 24 ABSOLUTE BASOPHIL 0.0 X10E9/L Normal 0.0-0.2 [facility] Comment on above: Performed By: #### 6 793-4, 84386-3, 2157-01, BMP, FEPR, CBCA #### [facility] ([id number]) [address], [address] [place] [address] ABSOLUTE NEUTROPHIL 5.7 X10E9/L Normal 1.5-6.6 [facility] Comment on above: Performed By: #### 6 793-4, 99508-2, 2157-01, BMP, FEPR, CBCA #### [facility] ([id number]) [address], [address] [place] [address] Basophils/100 WBC (Bld) 0.3 % Normal [facility] Comment on above: Performed By: #### 6 793-4, 03022-1, 2157-01, BMP, FEPR, CBCA #### [facility] ([id number]) [address], [address] [place] [address] Eosinophils (Bld) [#/Vol] 0.0 10*3/uL Normal 0.0-0.4 [facility] Comment on above: Performed By: #### 6 793-4, 17729-0, 2157-01, BMP, FEPR, CBCA #### [facility] ([id number]) [address], [address] [place] [address] Eosinophils/100 WBC (Bld) 0.3 % Normal [facility] Comment on above: Performed By: #### 6 793-4, 93777-0, 2157-01, BMP, FEPR, CBCA #### [facility] ([id number]) [address], [address] [place] [address] Erythrocyte distribution width (RBC) [Ratio] 14.2 % Normal 11.5-15.0 [facility] Comment on above: Performed By: #### 6 793-4, 08863-1, 2156-6, BMP, FEPR, CBCA #### [facility] ([id number]) [address], [address] [address] Hematocrit (Bld) [Volume fraction] 31.3 % Low 35-47 [facility] Comment on above: Performed By: #### 6 793-4, 92566-0, 2156-6, BMP, FEPR, CBCA #### [facility] ([id number]) [address], [facility] [address] [place] [address] Hemoglobin (Bld) [Mass/Vol] 10.5 g/dL Low 11.7-15.5 [facility] Comment on above: Performed By: #### 6 793-4, 06590-8, 2156-6, BMP, FEPR, CBCA #### [facility] ([id number]) [address], [address] [place] [address] Lymphocytes (Bld) [#/Vol] 0.7 10*3/uL Low 1.0-3.5 [facility] Comment on above: Performed By: #### 6 793-4, 40706-9, 2156-6, BMP, FEPR, CBCA #### [facility] ([id number]) [address], [address] [address] Lymphocytes/100 WBC (Bld) 9.5 % Normal [facility] Comment on above: Performed By: #### 6 793-4, 12982-0, 2156-6, BMP, FEPR, CBCA #### [facility] ([id number]) [address] [address] MCH (RBC) [Entitic mass] 30.4 pg Normal 27-34 [facility] Comment on above: Performed By: #### 6 793-4, 56627-0, 215-6, BMP, FEPR, CBCA #### [facility] ([id number]) [address], [address] [place] [address] MCHC (RBC) [Mass/Vol] 33.6 g/dL Normal 32-36 [facility] Comment on above: Performed By: #### 6 793-4, 69576-0, 6, BMP, FEPR, CBCA #### [facility] ([id number]) [address], [facility] [address] [place] [address] MCV (RBC) [Entitic vol] 90 fL Normal 80-100 [facility] Comment on above: Performed By: #### 6 793-4, 39996-7, 2157-01, BMP, FEPR, CBCA #### [facility] ([id number]) [address] [address] Monocytes (Bld) [#/Vol] 0.6 10*3/uL Normal 0-0.9 [facility] Comment on above: Performed By: #### 6 793-4, 52658-3, 2157-01, BMP, FEPR, CBCA #### [facility] ([id number]) [address] [address] Monocytes/100 WBC (Bld) 9.1 % Normal [facility] Comment on above: Performed By: #### 6 793-4, 48763-7, 2157-01, BMP, FEPR, CBCA #### [facility] ([id number]) [address] [address] [place] [address] Neutrophils/100 WBC (Bld) 80.8 % Normal [facility] Comment on above: Performed By: #### 6 793-4, 89398-9, 6, BMP, FEPR, CBCA #### [facility] ([id number]) [address], [facility] [address] [place] [address] Platelet mean volume (Bld) [Entitic vol] 6.5 fL Low 7-12 [facility] Comment on above: Performed By: #### 6 793-4, 14613-4, 2156-6, BMP, FEPR, CBCA #### [facility] ([id number]) [address], [address] [place] [address] Platelets (Bld) [#/Vol] 366 10*3/uL Normal 150-450 [facility] Comment on above: Performed By: #### 6 793-4, 61861-1, 2156-6, BMP, FEPR, CBCA #### [facility] ([id number]) [address], [address] [place] [address] RBC COUNT 3.46 X10E12/L Low 3.80-5.20 [facility] Comment on above: Performed By: #### 6 793-4, 93249-7, 2156-6, BMP, FEPR, CBCA #### [facility] ([id number]) [address], [address] [place] [address] WBC (Bld) [#/Vol] 7.0 10*3/uL Normal 4.0-11.0 [facility] Comment on above: Performed By: #### 6 793-4, 95255-9, 2156-6, BMP, FEPR, CBCA #### [facility] ([id number]) [address], [address] [place] [address] CK [Catalytic activity/Vol]o n 11-07-2023 CPK 35 U/L Normal 24-170 [facility] Comment on above: Performed By: #### 6 793-4, 65737-1, 2156-6, BMP, FEPR, CBCA #### [facility] ([id number]) [address], [address] [place] [address] IRON PROFILEon 11-07-2023 Iron [Mass/Vol] 67 ug/dL Normal 50-170 [facility] Comment on above: Performed By: #### 6 793-4, 04078-0, 2156-6, BMP, FEPR, CBCA #### [facility] ([id number]) [address], [address] [place] [address] IRON BINDING 392 ug/dL Normal 250-425 [facility] Comment on above: Performed By: #### 6 793-4, 22722-1, 2156-6, BMP, FEPR, CBCA #### [facility] ([id number]) [address], [address] [place] [address] IRON SATURATION 17 % SATURATION Normal 15-50 [facility] Comment on above: Performed By: #### 6 793-4, 21543-6, 2156-6, BMP, FEPR, CBCA #### [facility] ([id number]) [address], [address] [place] [address] Prealbumin IA [Mass/Vol]on 0 11-07-2023 Prealbumin [Mass/Vol] 21 mg/dL Normal 18-45 [facility] Comment on above: Performed By: #### 6 793-4, 01138-2, 2156-6, BMP, FEPR, CBCA #### [facility] ([id number]) [address], [address] [place] [address] URINALYSISon 11-07-2023 Bilirubin Ql (U) Negative Normal NEG [facility] BLOOD/HGB Trace Abnormal NEG [facility] Color (U) YELLOW Normal YELLOW [facility] Glucose Ql (U) Negative Normal NEG [facility] Ketones Ql (U) Negative Normal NEG [facility] Leukocyte esterase Test strip Ql (U) Negative Normal NEG [facility] MUCOUS PRESENT Abnormal NONE [facility] Nitrite Ql (U) Negative Normal NEG [facility] pH (U) 6.0 [pH] Normal 5.0-8.5 [facility] Protein Ql (U) Negative Normal NEG [facility] R.B.CELLS 4 /hpf Normal 0-5 [facility] Specific gravity (U) [Rel density] 1.017 Normal 1.003-1.035 [facility] SQUAMOUS EPITHELIUM <1 Normal 0-5 [facility] CLEAR Normal CLEAR [facility] Urobilinogen (U) [Mass/Vol] mg/dL Normal <1.1 [facility] W.B.CELLS 2 /hpf Normal 0-5 [facility] Vitamin D+Metabolites [Mass/ Vol]on 11-07-2023 VITAMIN D 25 HYD TOT 7.0 ng/mL Low 30-100 [facility] Comment on above: Result Comment: Vitamin D status 25 [place] Vitamin D Deficiency <20 ng/mL Insufficiency 20-29 ng/mL Sufficiency 30-100 ng/mL Toxicity >100 ng/mL NOTE: A pediatric reference range has not been established by the cracker sprayer of this kit. The [place] [employer] recommends a Vitamin D level of = or >20ng/mL in infants and children. Performed By: #### 6 793-4, 97572-4, 2157-6, BMP, FEPR, CBCA #### [facility] ([id number]) [address] [facility] [place] [address] XR CHEST 1 VWon 11-07-2023 XR CHEST [...] Ferguson MD on 11/07/2023 4:33 PM Normal [facility] XR FEMUR LT 2+ VIEWSon 11-06 [...] Mcneil MD on 11/07/2023 12:19 PM Normal [facility] XR PELVIS 1 OR 2 VWSon 11-06 XR PELVIS 1 OR 2 VWS XR PELVIS 1 OR 2 VW S XR PELVIS 1 OR 2 VWS HISTORY: pre-op. Pelvic pain COMPARISON: 11/07/2023. IMPRESSION: No displaced or pelvic fracture. Bilateral hip arthroplasties. Proximal femoral fracture subsidence. Finalized by Jose Bai MD on 11/07/2023 10:22 PM Normal [facility] ABO Rh Repeaton 10-15-2023 ABO O [facility] Rh Nom (Bld) Positive [facility] XR Pelvis and Hip - left 2 [...] Reymundo Granados DO on 10/15/2023 2:45 PM [facility] Radiology Study observation (narrative) [facility] XR Pelvis and Hip - left 2 V iewsOrdered By: Reymundo Granados on 10-15-2023 [facility] Work Phone: Basic Metabolic Panelon 08-25 Anion gap [Moles/Vol] 13 mmol/L 5 - 15 mmol/L [facility] Calcium [Mass/Vol] 9.2 mg/dL 8.5 - 10. 5 mg/dL [facility] Chloride [Moles/Vol] 97 mmol/L Low 98 - 10 9 mmol/L [facility] CO2 [Moles/Vol] 27 mmol/L 22 - 32 mmol/L [facility] Creatinine [Mass/Vol] 0.86 mg/dL 0.40 - 1.00 mg/dL [facility] Comment on above: METHOD TRACEABLE TO IDKY STANDARD eGFR (CKD-EPI)non-race dependent 80 - PINF [facility] Comment on above: Reported eGFR is based on the CKD-EPI 2020 equation that does not use a race coefficient. Glucose [Mass/Vol] 173 mg/dL High 65 - 99 mg/dL [facility] Interpretation and review of laboratory results Abnormal [facility] Potassium [Moles/Vol] 4.1 mmol/L 3.5 - 5.0 mmol/L [facility] Sodium [Moles/Vol] 137 mmol/L 134 - 146 mmol/L [facility] Urea nitrogen [Mass/Vol] 11 mg/dL 5 - 23 mg/dL [facility] CBC auto differentialon 08-25 Basophils (Bld) [#/Vol] 0.0 10*3/uL [facility] Basophils/100 WBC (Bld) 0.4 % [facility] Eosinophils (Bld) [#/Vol] 0.1 10*3/uL [facility] Eosinophils/100 WBC (Bld) 1.2 % [facility] Erythrocyte distribution width (RBC) [Ratio] 16.0 % High 11.5 - 15.0 % [facility] Hematocrit (Bld) [Volume fraction] 42.3 % 35 - 47 % [facility] Hemoglobin (Bld) [Mass/Vol] 13.9 g/dL 11.7 - 15.5 g/dL [facility] Interpretation and review of laboratory results Abnormal [facility] Lymphocytes (Bld) [#/Vol] 1.1 10*3/uL [facility] Lymphocytes/100 WBC (Bld) 15.4 % [facility] MCH (RBC) [Entitic mass] 31.2 pg 27 - 34 pg [facility] MCHC (RBC) [Mass/Vol] 32.9 g/dL 32 - 36 g/dL [facility] MCV (RBC) [Entitic vol] 95 fL 80 - 100 fL [facility] Monocytes (Bld) [#/Vol] 0.6 10*3/uL [facility] Monocytes/100 WBC (Bld) 8.4 % [facility] Neutrophils (Bld) [#/Vol] 5.1 10*3/uL [facility] Neutrophils/100 WBC (Bld) 74.6 % [facility] Platelet mean volume (Bld) [Entitic vol] 7.0 fL 7 - 12 fL [facility] Platelets (Bld) [#/Vol] 294 10*3/uL [facility] RBC (Bld) [#/Vol] 4.46 10*6/uL [facility] WBC corrected for nucl RBC Auto (Bld) [#/Vol] 6.9 [facility] XR Chest PA and Lateralon CHEST RADIOGRAPH [...] Wes Rosales MD on 09/18/2023 11:43 AM [employer] Wes Rosales MD - 09/18/2023 CHEST RADIOGRAPH [...] Wes Rosales MD on 09/18/2023 11:43 AM [facility] [employer] Radiology Study observation (narrative) [employer] XR Chest PA and LateralOrder ed By: Wes Rosales on 09-18-2023 [employer] Work Phone: XR CSPINE OBL FLEX_EXTon XR CSPINE OBL [...] BERT CARTER Date: 2022-01-16 16:[address] [facility] CBC AUTO DIFFon 04-25-2021 BASO # 0.0 103/ul Normal 0.0-0.1 [facility] Comment on above: Performed By: #### C BC #### [facility] [address] [address] [place] Basophils/100 WBC (Bld) 0.3 % Normal 0.2-2.0 [facility] Comment on above: Performed By: #### C BC #### [facility] [address] [id number] [place] EO # 0.0 103/ul Normal 0.0-0.[address] [facility] Comment on above: Performed By: #### C BC #### [facility] [address] [id number] [place] Eosinophils/100 WBC (Bld) 0.5 % Critically low 0.9-7.0 [facility] Comment on above: Performed By: #### C BC #### [facility] [address] [address] [place] Erythrocyte distribution width (RBC) [Ratio] 13.2 % Normal 11.0-15.0 [facility] Comment on above: Performed By: #### C BC #### [facility] [address] [place] [address] [place] Hematocrit (Bld) [Volume fraction] 45.1 % Normal 36.0-48.0 [facility] Comment on above: Performed By: #### C BC #### [facility] [address] [place], [place] [address] [place] Marium Hemoglobin (Bld) [Mass/Vol] 14.9 g/dL Normal 12.0-16.[address] [facility] Comment on above: Performed By: #### C BC #### [facility] [address] [place], [place] [address] [place] Marium IG # 0.06 10e3/ul Critically high 0.00-0.03 [facility] Comment on above: Performed By: #### C BC #### [facility] [address] [place] [address] [place] Mar[place] IG % 0.7 % Critically high 0.0-0.5 [facility] Comment on above: Performed By: #### C BC #### [facility] [address] [id number] [place] LYMPH # 1.2 103/ul Normal 1.2-3.[address] [facility] Comment on above: Performed By: #### C BC #### [facility] [address] [place], [place] [id number] [place] Marium Lymphocytes/100 WBC (Bld) 14.4 % Critically low 20.5-60.[address] [facility] Comment on above: Performed By: #### C BC #### [facility] [address] [place], [place] [phone] [place] MANUAL DIFF REQ NO Normal [facility] Comment on above: Performed By: #### C BC #### [facility] [address] [place], [place] [phone] [place] Marium MCH (RBC) [Entitic mass] 31.6 pg Normal 26.7-34.[address] [facility] Comment on above: Performed By: #### C BC #### [facility] [address] [place] [address] Kittyyissel Causey MCHC (RBC) [Mass/Vol] 33.0 g/dL Normal 29.9-35.[address] [facility] Comment on above: Performed By: #### C BC #### [facility] [address] [place], [place] [phone] [place] Mar[place] MCV (RBC) [Entitic vol] 95.6 fL Normal 81.0-99.[address] [facility] Comment on above: Performed By: #### C BC #### [facility] [address] [place], [place] [address] [place] MONO # 0.7 103/ul Normal 0.3-0.[address] [facility] Comment on above: Performed By: #### C BC #### [facility] [address] [place], [place] [phone] [place] Monocytes/100 WBC (Bld) 7.8 % Normal 1.7-12.[address] [facility] Comment on above: Performed By: #### C BC #### [facility] [address] [place], [place] [phone] [place]ium NEUT # 6.6 103/ul Critically high 1.4-6.5 [facility] Comment on above: Performed By: #### C BC #### [facility] [address] [place] [address] [place] Causey Neutrophils/100 WBC (Bld) 76.3 % Critically high 43.0-75.0 [facility] Comment on above: Performed By: #### C BC #### [facility] [address] [id number] [place] Causey Platelet mean volume (Bld) [Entitic vol] 9.2 fL Critically low 9.5-13.[address] [facility] Comment on above: Performed By: #### C BC #### [facility] [address] [phone] [place] Causey PLT 282 103/ul Normal 150-[address] [facility] Comment on above: Performed By: #### C BC #### [facility] [address] [address] [place] Causey RBC 4.72 106/ul Normal 4.20-5.40 [facility] Comment on above: Performed By: #### C BC #### [facility] [address] [address] Kitty aCusey WBC 8.6 103/ul Normal 4.0-11.[address] [facility] Comment on above: Performed By: #### C BC #### [facility] [address] [phone] [place] Causey GLYCOHEMOGLOBIN A1Con 2020 ADA RECOMMENDATION ADA THERAPEUTIC TARG ET 6.0 - 7.0 ACTION SUGGESTED > 7.0 Normal [facility] Comment on above: Performed By: #### A 1C ####[facility] [id number] [id number] Causey Glucose [Mass/Vol] 137 mg/dL Normal [facility] Comment on above: Performed By: #### A 1C ####[facility] [id number] [id number] Causey HbA1c (Bld) [Mass fraction] 6.4 % Critically high <=6.0 [facility] Comment on above: Performed By: #### A 1C ####[facility] [id number] [id number] Marium LIPID PROFILEon 04-25-2021 CHOL-HDL RATIO NORM SEE BELOW Normal [facility] Comment on above: Result Comment: 3.3 - 4.4 LOW RISK 4.4 - 7.1 AVERAGE RISK 7.1 - 11.0 MODERATE RISK >11.0 HIGH RISK Performed By: #### B MP, LIVER, TSH, LIPID #### [facility] [address] [place], [place] [address] [place] Marium Cholesterol [Mass/Vol] 235 mg/dL Critically high <=200 [facility] Comment on above: Performed By: #### B MP, LIVER, TSH, LIPID #### [facility] [address] [place], [place] [address] [place] Marium Cholesterol in HDL [Mass/Vol] 59 mg/dL Normal [facility] Comment on above: Performed By: #### B MP, LIVER, TSH, LIPID #### [facility] [address] [place], [place] [address] [place] Mar[place] Cholesterol in LDL [Mass/Vol] 160.0 mg/dL Normal [facility] Comment on above: Performed By: #### B MP, LIVER, TSH, LIPID #### [facility] [address] [place], [place] [address] [place] Marium Cholesterol.total/Ch olesterol in HDL [Mass ratio] 4.0 {ratio} Normal [facility] Comment on above: Performed By: #### B MP, LIVER, TSH, LIPID #### [facility] [address] [place], [place] [address] [place] Mar[place] HDL NORMAL > or = 60 mg/dl - LO W CARDIOVASCULAR RISK <40 mg/dl - HIGH CARDIOVASCULAR RISK Normal [facility] Comment on above: Performed By: #### B MP, LIVER, TSH, LIPID #### [facility] [address] [place], [place] [address] [place] Marium LDL CALC NORMAL SEE BELOW Normal [facility] Comment on above: Result Comment: <100 mg/dl OPTIMAL 100 - 129 mg/dl NEAR OR ABOVE OPTIMAL 130 - 159 mg/dl BORDERLINE HIGH 160 - 189 mg/dl HIGH >190 mg/dl VERY HIGH Performed By: #### B MP, LIVER, TSH, LIPID #### [facility] [address], [place] [address] Kitty Marium Triglyceride [Mass/Vol] 80 mg/dL Normal <=[address] [facility] Comment on above: Performed By: #### B MP, LIVER, TSH, LIPID #### [facility] [address] [place] [id number] Kitty Marium VLDL CALC 16.0 mg/dL Normal [facility] Comment on above: Performed By: #### B MP, LIVER, TSH, LIPID #### [facility] [address] [id number] Kitty Marium LIVER PROFILEon 04-25-2021 Albumin [Mass/Vol] 3.9 g/dL Normal 3.5-5.0 [facility] Comment on above: Performed By: #### B MP, LIVER, TSH, LIPID #### [facility] Laboratory [address] [id number] Kitty Marium Albumin/Globulin [Mass ratio] 1.0 {ratio} Normal [facility] Comment on above: Performed By: #### B MP, LIVER, TSH, LIPID #### [facility] [address] [id number] [place] Marium ALP [Catalytic activity/Vol] 91 U/L Normal 38-126 [facility] Comment on above: Performed By: #### B MP, LIVER, TSH, LIPID #### [facility] [address] [id number] [place] Marium ALT [Catalytic activity/Vol] 29 U/L Normal 9-52 [facility] Comment on above: Performed By: #### B MP, LIVER, TSH, LIPID #### [facility] [address] [id number] [place] Marium AST [Catalytic activity/Vol] 24 U/L Normal 14-36 [facility] Comment on above: Performed By: #### B MP, LIVER, TSH, LIPID #### [facility] [address] [id number] [place] Marium BILI, CONJUGATED 0.1 mg/dL Normal 0.0-0.3 [facility] Comment on above: Performed By: #### B MP, LIVER, TSH, LIPID #### [facility] [address] [id number] [place] Marium Bilirubin [Mass/Vol] 0.5 mg/dL Normal 0.2-1.[address] [facility] Comment on above: Performed By: #### B MP, LIVER, TSH, LIPID #### [facility] [address] [phone] [place] Marium Globulin (S) [Mass/Vol] 4.1 g/dL Normal [facility] Comment on above: Performed By: #### B MP, LIVER, TSH, LIPID #### [facility] [address] [phone] [place] Marium Protein [Mass/Vol] 8.0 g/dL Normal 6.1-8.2 [facility] Comment on above: Performed By: #### B MP, LIVER, TSH, LIPID #### [facility] [address] [place], [place] [id number] Kitty Marium PROF CHEM 8 (BAS METB)on Anion gap [Moles/Vol] 11.0 mmol/L Normal [facility] Comment on above: Performed By: #### B MP, LIVER, TSH, LIPID #### [facility] [address] [place] [address] [place] Marium Calcium [Mass/Vol] 9.7 mg/dL Normal 8.4-10.2 [facility] Comment on above: Performed By: #### B MP, LIVER, TSH, LIPID #### [facility] [address] [place] [address] [place] Marium Chloride [Moles/Vol] 98 mmol/L Normal 98-[address] [facility] Comment on above: Performed By: #### B MP, LIVER, TSH, LIPID #### [facility] [address] [phone] [place] Marium CO2 [Moles/Vol] 33.6 mmol/L Critically high 22.0-30.[address] [facility] Comment on above: Performed By: #### B MP, LIVER, TSH, LIPID #### [facility] [address] [phone] [place] Marium Creatinine [Mass/Vol] 0.86 mg/dL Normal 0.52-1.04 [facility] Comment on above: Performed By: #### B MP, LIVER, TSH, LIPID #### [facility] [address] [phone] [place] Marium EGFR-AF RUSSIAN >60 Normal >=60 [facility] Comment on above: Performed By: #### B MP, LIVER, TSH, LIPID #### [facility] [address] [phone] [place] Marium EGFR-NON AF RUSSIAN >60 Normal >=[address] [facility] Comment on above: Performed By: #### B MP, LIVER, TSH, LIPID #### [facility] [address] [address] [place] Marium Glucose [Mass/Vol] 105 mg/dL Normal 74-106 [facility] Comment on above: Performed By: #### B MP, LIVER, TSH, LIPID #### [facility] [address] [address] [place] Marium Potassium [Moles/Vol] 3.6 mmol/L Normal 3.4-5.[address] [facility] Comment on above: Performed By: #### B MP, LIVER, TSH, LIPID #### [facility] [address] [address] [place] Marium Sodium [Moles/Vol] 139 mmol/L Normal 137-145 [facility] Comment on above: Performed By: #### B MP, LIVER, TSH, LIPID #### [facility] [address] [address] [place] Marium Urea nitrogen [Mass/Vol] 12.0 mg/dL Normal 7.0-17.[address] [facility] Comment on above: Performed By: #### B MP, LIVER, TSH, LIPID #### [facility] [address] [address] [place] Marium Urea nitrogen/Creatinine [Mass ratio] 14.0 mg/mg Normal [facility] Comment on above: Performed By: #### B MP, LIVER, TSH, LIPID #### [facility] [address] [place], [place] [address] Kitty Causey TSHon 04-25-2021 TSH 0.894 uIU/mL Normal 0.470-4.680 [facility] Comment on above: Performed By: #### B MP, LIVER, TSH, LIPID #### [facility] [address] [address] [place] Causey TSH RANGE SEE BELOW Normal [facility] Comment on above: Result Comment: <0.3 4 UIU/ml HYPERTHYROID 0.34-5.60 UIU/ml EUTHYROID >5.60 UIU/ml HYPOTHYROID Performed By: #### B MP, LIVER, TSH, LIPID #### [facility] [address] [address] [place] Causey VITAMIN D 25 OHon 04-25-2021 VIT D 25-OH 41.9 ng/mL Normal [facility] Comment on above: Performed By: #### V ITAD ####[facility] [address] [address] Causey VIT D RANGES SEE BELOW Normal [facility] Comment on above: Result Comment: <20 ng/mL Vit D deficient 20 - <30 ng/mL Vit D insufficient 30 - 100 ng/mL Vit D sufficient >100 ng/mL Potential Toxicity Performed By: #### V ITAD ####[facility] [address] [address]Gerken Marium ASYMPTOMATIC COVID-19 ANTIGE Non 03-16-2021 EUA Statement SEE BELOW Normal [facility] Comment on above: Result Comment: This test [...] Performed By: #### C DEE DEE #### [facility] [address] [place] [address] [place] Causey SARS-CoV-2 (COVID-19) RNA NATI+probe Ql (Unsp spec) Negative Normal NEGATIVE [facility] Comment on above: Result Comment: Nega tive results are presumptive. They do not preclude infection and should not be used as the sole basis for treatment decisions. Additional confirmatory testing by a molecular method should be considered. Performed By: #### C DEE DEE #### [facility] [address] [place] [address] [place] Causey CBC AUTO DIFFon 03-01-2021 BASO # 0.0 103/ul Normal 0.0-0.1 [facility] Comment on above: Performed By: #### C BC ####[facility] [address] [place], [place] [address]Gerken Marium Basophils/100 WBC (Bld) 0.2 % Normal 0.2-2.[address] [facility] Comment on above: Performed By: #### C BC ####[facility] [address] [place], [place] [address]Gerken Marium EO # 0.1 103/ul Normal 0.0-0.[address] [facility] Comment on above: Performed By: #### C BC ####[facility] [address] [place], [place] [address]Gerken Marium Eosinophils/100 WBC (Bld) 0.6 % Critically low 0.9-7.[address] [facility] Comment on above: Performed By: #### C BC ####[facility] [address] [place], [place] [phone] Causey Erythrocyte distribution width (RBC) [Ratio] 13.1 % Normal 11.0-15.0 [facility] Comment on above: Performed By: #### C BC ####[facility] [address] [place] [address] Mar[place] Hematocrit (Bld) [Volume fraction] 46.0 % Normal 36.0-48.0 [facility] Comment on above: Performed By: #### C BC ####[facility] [address] [place] Hemoglobin (Bld) [Mass/Vol] 15.7 g/dL Normal 12.0-16.[address] [facility] Comment on above: Performed By: #### C BC ####[facility] [address] [place] [address] Mar[place] IG # 0.06 10e3/ul Critically high 0.00-0.03 [facility] Comment on above: Performed By: #### C BC ####[facility] [address] [place] [address] Mar[place] IG % 0.5 % Normal 0.0-0.5 [facility] Comment on above: Performed By: #### C BC ####[facility] [address] [place] [address] Mar[place] LYMPH # 1.2 103/ul Normal 1.2-3.[address] [facility] Comment on above: Performed By: #### C BC ####[facility] [address] [place] [address] Marium Lymphocytes/100 WBC (Bld) 9.4 % Critically low 20.5-60.0 [facility] Comment on above: Performed By: #### C BC ####[facility] [address] [place] [address] [place] MANUAL DIFF REQ NO Normal [facility] Comment on above: Performed By: #### C BC ####[facility] [address] [place] [address] Mar[place] MCH (RBC) [Entitic mass] 31.5 pg Normal 26.7-34.0 [facility] Comment on above: Performed By: #### C BC ####[facility] [address] [place] [address] Mar[place] MCHC (RBC) [Mass/Vol] 34.1 g/dL Normal 29.9-35.2 [facility] Comment on above: Performed By: #### C BC ####[facility] [address] [address]Kit[place] Causey MCV (RBC) [Entitic vol] 92.4 fL Normal 81.0-99.[address] [facility] Comment on above: Performed By: #### C BC ####[facility] [address]kwzx[address] Cause[place] MONO # 0.7 103/ul Normal 0.3-0.[address] [facility] Comment on above: Performed By: #### C BC ####[facility] [address] Mar[place] Monocytes/100 WBC (Bld) 5.6 % Normal 1.7-12.[address] [facility] Comment on above: Performed By: #### C BC ####[facility] [address] [place] [address] Mar[place] NEUT # 11.0 103/ul Critically high 1.4-6.5 [facility] Comment on above: Performed By: #### C BC ####[facility] [address] [place] [address] Mar[place] Neutrophils/100 WBC (Bld) 83.7 % Critically high 43.0-75.[address] [facility] Comment on above: Performed By: #### C BC ####[facility] [address]aj[address] [place] Platelet mean volume (Bld) [Entitic vol] 8.8 fL Critically low 9.5-13.[address] [facility] Comment on above: Performed By: #### C BC ####[facility] [address] [place] [address] Mar[place] PLT 324 103/ul Normal 150-[address] [facility] Comment on above: Performed By: #### C BC ####[facility] [address] [place] RBC 4.98 106/ul Normal 4.20-5.[address] [facility] Comment on above: Performed By: #### C BC ####[facility] [address] [place], [place] [address]Bxrqil Marium WBC 13.1 103/ul Critically high 4.0-11.0 [facility] Comment on above: Performed By: #### C BC ####[facility] [address] [place], [place] [address]JrxylhKitty Causey CTA CHEST WO W CONon 021 [...] SUZETTE ROWELL Date: 2021-03-01 09:[address] [facility] D-DIMERon 03-01-2021 D-DIMER 1.46 mg/L FEU Critically high 0.19-0.50 [facility] Comment on above: Result Comment: Test repeated. Critical value verified. Performed By: #### D DIM, PT ####[facility] [address] [place], [place] [address]Ycpjxy aMrium D-DIMER COMMENTS SEE BELOW Normal [facility] Comment on above: Result Comment: Incr eases [...] hospitalization. Performed By: #### D DIM, PT ####[facility] [address] [place] ER URINE PROFILEon 1 Bilirubin Ql (U) Negative Normal NEGATIVE [facility] Comment on above: Performed By: #### E RUR ####[facility] [address] [place] [address] [place] Clarity (U) CLEAR Normal CLEAR [facility] Comment on above: Performed By: #### E RUR ####[facility] [address] [place] [address] Mar[place] Color (U) YELLOW Normal YELLOW [facility] Comment on above: Performed By: #### E RUR ####[facility] [address] [place] [address] Marium ERUAHD A micrscopic examination will be performed if indicated. Normal [facility] Comment on above: Performed By: #### E RUR ####[facility] [address] [place] [address] Mar[place] Glucose Ql (U) Negative Normal NEGATIVE [facility] Comment on above: Performed By: #### E RUR ####[facility] [address] [place] [address] Mar[place] Hemoglobin Ql (U) Negative Normal NEGATIVE [facility] Comment on above: Performed By: #### E RUR ####[facility] [address] [place] [address] [place] Ketones Ql (U) TRACE Abnormal NEGATIVE [facility] Comment on above: Performed By: #### E RUR ####[facility] [address] [place] [address] [place] LEUKOCYTES Negative Normal NEGATIVE [facility] Comment on above: Performed By: #### E RUR ####[facility] Y[address] [place] Nitrite Ql (U) Negative Normal NEGATIVE [facility] Comment on above: Performed By: #### E RUR ####[facility] [address] [place] [address] Mar[place] pH (U) 6.0 [pH] Normal 5-9 [facility] Comment on above: Performed By: #### E RUR ####[facility] [address] [place] [address] Mar[place] SPEC GRAVITY 1.015 Normal 1.005-<=1.025 [facility] Comment on above: Performed By: #### E RUR ####[facility] [address] [place] [address] Mar[place] UA PROTEIN Negative Normal NEGATIVE/ TRACE [facility] Comment on above: Performed By: #### E RUR ####[facility] [address] [place] [address] Mar[place] UR MICRO IND NOT INDICATED Normal [facility] Comment on above: Performed By: #### E RUR ####[facility] [address] [place] [address] Mar[place] Urobilinogen Qn (U) 0.2 {Brian'U}/dL Normal 0.2 - 1. 0 [facility] Comment on above: Performed By: #### E RUR ####[facility] [address] [place] [address] [place] LIPASEon 03-01-2021 Lipase [Catalytic activity/Vol] 59.0 U/L Normal 23.0-300.0 [facility] Comment on above: Performed By: #### L IPA ####[facility] [address] [place] [address] Mar[place] PROF 14(COMP METB)on 021 Albumin [Mass/Vol] 3.6 g/dL Normal 3.5-5.0 [facility] Comment on above: Performed By: #### C MP, HSTROPN #### [facility] [address] [address] Kitty Marium Albumin/Globulin [Mass ratio] 0.8 {ratio} Normal [facility] Comment on above: Performed By: #### C JENISE HSTROPN #### [facility] [address] [address] [place] Marium ALP [Catalytic activity/Vol] 101 U/L Normal 38-[address] [facility] Comment on above: Performed By: #### C JENISE HSTROPN #### [facility] [address] [address] [place] Marium ALT [Catalytic activity/Vol] 38 U/L Normal 9-[address] [facility] Comment on above: Performed By: #### C JENISE HSTROPN #### [facility] [address] [address] [place] Marium Anion gap [Moles/Vol] 16.7 mmol/L Normal [facility] Comment on above: Performed By: #### C JENISE HSTROPN #### [facility] [address] [place] [address] Kitty Marium AST [Catalytic activity/Vol] 55 U/L Critically high 14-36 [facility] Comment on above: Performed By: #### C JENISE HSTROPN #### [facility] [address] [address] [place] Marium Bilirubin [Mass/Vol] 0.4 mg/dL Normal 0.2-1.[address] [facility] Comment on above: Performed By: #### C JENISE HSTROPN #### [facility] [address] [place] [address] Kitty Marium Calcium [Mass/Vol] 9.0 mg/dL Normal 8.4-10.2 [facility] Comment on above: Performed By: #### C JENISE HSTROPN #### [facility] [address] [address] Kitty Marium Chloride [Moles/Vol] 100 mmol/L Normal 98-[address] [facility] Comment on above: Performed By: #### C JENISE HSTROPN #### [facility] [address] [place], [place] [address] Kitty Marium CO2 [Moles/Vol] 28.2 mmol/L Normal 22.0-30.0 [facility] Comment on above: Performed By: #### C JENISE, HSTROPN #### [facility] [address] [place], [place] [address] Kitty Marium Creatinine [Mass/Vol] 0.90 mg/dL Normal 0.52-1.04 [facility] Comment on above: Performed By: #### C JENISE, HSTROPN #### [facility] [address] [phone] Kitty Marium EGFR-AF RUSSIAN >60 Normal >=60 [facility] Comment on above: Performed By: #### C JENISE, HSTROPN #### [facility] [address] [address] [place] Marium EGFR-NON AF RUSSIAN >60 Normal >=60 [facility] Comment on above: Performed By: #### C JENISE, HSTROPN #### [facility] [address] [phone] Kitty Marium Globulin (S) [Mass/Vol] 4.5 g/dL Normal [facility] Comment on above: Performed By: #### C JENISE, HSTROPN #### [facility] [address] [address] Kitty Marium Glucose [Mass/Vol] 211 mg/dL Critically high 74-106 [facility] Comment on above: Performed By: #### C JENISE, HSTROPN #### [facility] [address] [phone] Kitty Marium Potassium [Moles/Vol] 3.9 mmol/L Normal 3.4-5.0 [facility] Comment on above: Performed By: #### C JENISE, HSTROPN #### [facility] [address] [phone] Kitty Marium Protein [Mass/Vol] 8.1 g/dL Normal 6.1-8.2 [facility] Comment on above: Performed By: #### C JENISE, HSTROPN #### [facility] [address] [place], [place] [address] Kitty Marium Sodium [Moles/Vol] 141 mmol/L Normal 137-145 [facility] Comment on above: Performed By: #### C MP, HSTROPN #### [facility] [address] [place], [place] [address] Kitty Marium Urea nitrogen [Mass/Vol] 8.0 mg/dL Normal 7.0-17.0 [facility] Comment on above: Performed By: #### C JENISE, HSTROPN #### [facility] [address] [place], [place] [address] Kitty Marium Urea nitrogen/Creatinine [Mass ratio] 8.9 mg/mg Normal [facility] Comment on above: Performed By: #### C JENISE, HSTROPN #### [facility] [address] [place], [place] [address] Kitty Coleen PROTIMEon 03-01-2021 INR Coag (PPP) [Relative time] 1.00 {INR} Normal [facility] Comment on above: Performed By: #### D DIM, PT ####[facility] [address] [id number] Causey INR GUIDELINES SEE BELOW Normal [facility] Comment on above: Result Comment: MATT RED INR: 2.0 - 3.0 CONDITIONS NOT LISTED BELOW 2.5 - 3.5 FOR PROSTHETIC HEART VALVE REPLACEMENT 2.5 - 3.5 RECURRENT THROMBOSIS Performed By: #### D DIM, PT ####[facility] [address] [id number] Marium PT Coag (PPP) [Time] 10.9 s Normal 9.0-11.[address] [facility] Comment on above: Performed By: #### D DIM, PT ####[facility] [address] [id number] Marium TROPONIN, HIGH SENSITIVITYon 03-01-2021 HSTROP 5.0 pg/mL Normal 4.0-35.5 [facility] Comment on above: Result Comment: CUT- OFF POINTS HAVE BEEN ESTABLISHED BASED ON THE FOURTH UNIVERSAL DEFINITIONS OF MYOCARDIAL INFARCTION. THE UPPER REFERENCE LIMIT (URL) OF TROPONIN, DEFINED THE 99TH PERCENTILE OF cTnI DISTRIBUTION IN A REFERENCE POPULATION, HAS BEEN CONFIRMED THE DECISION THRESHOLD FOR VT DIAGNOSIS. Performed By: #### C JENISE, HSTROPN #### [facility] [address] [phone] Kitty Causey XR CHEST 1 Von 03-01-2021 [...] SUZETTE ROWELL Date: 2021-03-01 07:[address] [facility] Vital Signs Date Time Vital Sign Value Performing Clinician Facility 03-01-2025 08:23-0400 Body height 154.9 cm Sam Hancock MD Work Phone: [facility] 03-01-2025 08:23-0400 Body mass index (BMI) [Ratio] 41.76 kg/m2 Sam Hancock MD Work Phone: [facility] 03-01-2025 08:23-0400 Body temperature 97.3 [degF] Sam Hancock MD Work Phone: [facility] 03-01-2025 08:23-0400 Body weight 100.25 kg Sam Hancock MD Work Phone: [facility] 03-01-2025 08:23-0400 Diastolic blood pressure 62 mm[Hg] Sam Hancock MD Work Phone: [facility] 03-01-2025 08:23-0400 Heart rate 60 /min Sam Hancock MD Work Phone: [facility] 03-01-2025 08:23-0400 Respiratory rate 22 /min Sam Hancock MD Work Phone: [facility] 03-01-2025 08:23-0400 SaO2% (BldA) [Mass fraction] 99 % Sam Hancock MD Work Phone: [facility] 03-01-2025 08:23-0400 Systolic blood pressure 114 mm[Hg] Sam Hancock MD Work Phone: [facility] 02-20-2025 10:36-0400 Body mass index (BMI) [Ratio] 42.51 kg/m2 Azeem Lety DO Work Phone: [facility] 02-20-2025 10:36-0400 Body weight 102.06 kg Azeem Lety DO Work Phone: [facility] 02-20-2025 10:36-0400 Diastolic blood pressure 60 mm[Hg] Azeem Lety DO Work Phone: [facility] 02-20-2025 10:36-0400 Systolic blood pressure 102 mm[Hg] Azeem Lety DO Work Phone: [facility] 01-10-2025 11:07-0400 Body mass index (BMI) [Ratio] 42.48 kg/m2 Azeem Lety DO Work Phone: [facility] 01-10-2025 11:07-0400 Body weight 101.97 kg Azeem Lety DO Work Phone: [facility] 01-10-2025 11:07-0400 Diastolic blood pressure 74 mm[Hg] Azeem Lety DO Work Phone: [facility] 01-10-2025 11:07-0400 Systolic blood pressure 132 mm[Hg] Azeem Lety DO Work Phone: [facility] 01-04-2025 09:26-0400 Body height 154.9 cm Sam Hancock MD Work Phone: [facility] 01-04-2025 09:26-0400 Body mass index (BMI) [Ratio] 44.59 kg/m2 Sam Hancock MD Work Phone: [facility] 01-04-2025 09:26-0400 Body temperature 97.5 [degF] Sam Hancock MD Work Phone: [facility] 01-04-2025 09:26-0400 Body weight 107.05 kg Sam Hancock MD Work Phone: [facility] 01-04-2025 09:26-0400 Diastolic blood pressure 84 mm[Hg] Sam Hancock MD Work Phone: [facility] 01-04-2025 09:26-0400 Heart rate 109 /min Sam Hancock MD Work Phone: [facility] 01-04-2025 09:26-0400 Respiratory rate 24 /min Sam Hancock MD Work Phone: [facility] 01-04-2025 09:26-0400 SaO2% (BldA) [Mass fraction] 91 % Sam Hancock MD Work Phone: [facility] 01-04-2025 09:26-0400 Systolic blood pressure 176 mm[Hg] Sam Hancock MD Work Phone: [facility] 09-07-2024 08:47-0500 Body height 154.9 cm Myrlte Cota MD Work Phone: [facility] 09-07-2024 08:47-0500 Body mass index (BMI) [Ratio] 48.18 kg/m2 Myrtle Cota MD Work Phone: [facility] 09-07-2024 08:47-0500 Body weight 115.67 kg Myrtle Cota MD Work Phone: [facility] 09-07-2024 08:47-0500 Diastolic blood pressure 84 mm[Hg] Myrtle Cota MD Work Phone: [facility] 09-07-2024 08:47-0500 Heart rate 82 /min Myrtle Cota MD Work Phone: [facility] 01-15-2025 08:47-0500 Systolic blood pressure 142 mm[Hg] Myrtle Cota MD Work Phone: [facility] 09-05-2024 11:33-0500 Body height 154.9 cm Sam Hancock MD Work Phone: [facility] 09-05-2024 11:33-0500 Body mass index (BMI) [Ratio] 47.8 kg/m2 Sam Hancock MD Work Phone: [facility] 09-05-2024 11:33-0500 Body temperature 98.01 [degF] Sam Hancock MD Work Phone: [facility] 09-05-2024 11:33-0500 Body weight 114.76 kg Sam Hancock MD Work Phone: [facility] 09-05-2024 11:33-0500 Diastolic blood pressure 70 mm[Hg] Sam Hancock MD Work Phone: [facility] 09-05-2024 11:33-0500 Heart rate 117 /min Sam Hancock MD Work Phone: [facility] 09-05-2024 11:33-0500 Respiratory rate 24 /min Sam Hancock MD Work Phone: [facility] 09-05-2024 11:33-0500 SaO2% (BldA) [Mass fraction] 97 % Sam Hancock MD Work Phone: [facility] 09-05-2024 11:33-0500 Systolic blood pressure 130 mm[Hg] Sam Hancock MD Work Phone: [facility] 07-29-2024 07:46-0500 Body height 154.9 cm Pmh 1 [facility] 07-29-2024 07:46-0500 Body mass index (BMI) [Ratio] 48.18 kg/m2 Pmh 1 [facility] 07-29-2024 07:46-0500 Body weight 115.67 kg Pmh 1 [facility] 07-20-2024 10:47-0500 Body height 154.9 cm Adia Iglesias APRN-SALES CONSULTANT [employer]UR[employer] Work Phone: [facility] 07-20-2024 10:47-0500 Body mass index (BMI) [Ratio] 47.8 kg/m2 Adia Iglesias [employer] FINISHER-SALES CONSULTANT [employer] Work Phone: [facility] 07-20-2024 10:47-0500 Body weight 114.67 kg Adia Iglesias [employer] FINISHER-SALES CONS[employer] Work Phone: [facility] 06-21-2024 15:31-0400 Body height 154.9 cm Sam Hancock MD Work Phone: [facility] 06-21-2024 15:31-0400 Body mass index (BMI) [Ratio] 48.37 kg/m2 Sam Hancock MD Work Phone: [facility] 06-21-2024 15:31-0400 Body temperature 98.01 [degF] Sam Hancock MD Work Phone: [facility] 06-21-2024 15:31-0400 Body weight 116.12 kg Sam Hancock MD Work Phone: [facility] 06-21-2024 15:31-0400 Diastolic blood pressure 92 mm[Hg] Sam Hancock MD Work Phone: [facility] 06-21-2024 15:31-0400 Heart rate 121 /min Sam Hancock MD Work Phone: [facility] 06-21-2024 15:31-0400 Respiratory rate 24 /min Sam Hancock MD Work Phone: [facility] 06-21-2024 15:31-0400 SaO2% (BldA) [Mass fraction] 96 % Sam Hancock MD Work Phone: [facility] 06-21-2024 15:31-0400 Systolic blood pressure 190 mm[Hg] Sam Hancock MD Work Phone: [facility] 04-28-2024 11:44-0400 Body height 154.9 cm Jalen Pierce MD Work Phone: [facility] 04-28-2024 11:44-0400 Body mass index (BMI) [Ratio] 41.59 kg/m2 Jalen Pierce MD Work Phone: [facility] 04-28-2024 11:44-0400 Body temperature 97.3 [degF] Jalen Pierce MD Work Phone: [facility] 04-28-2024 11:44-0400 Body weight 99.8 kg Jalen Pierce MD Work Phone: [facility] 01-21-2024 08:15-0400 Body height 154.9 cm Jalen Pierce MD Work Phone: [facility] 01-21-2024 08:15-0400 Body mass index (BMI) [Ratio] 41.59 kg/m2 Jalen Pierce MD Work Phone: [facility] 01-21-2024 08:15-0400 Body temperature 95.11 [degF] Jalen Pierce MD Work Phone: [facility] 01-21-2024 08:15-0400 Body weight 99.8 kg Jalen Pierce MD Work Phone: [facility] 11-24-2023 12:57-0400 Body height 154.9 cm Jalen Pierce MD Work Phone: [facility] 11-24-2023 12:57-0400 Body mass index (BMI) [Ratio] 41.59 kg/m2 Jalen Pierce MD Work Phone: [facility] 11-24-2023 12:57-0400 Body temperature 98.01 [degF] Jalen Pierce MD Work Phone: [facility] 11-24-2023 12:57-0400 Body weight 99.8 kg Jalen Pierce MD Work Phone: [facility] 10-17-2023 07:44-0500 Body temperature 98.49 [degF] Wilfredo Keen DO Work Phone: [employer] 10-17-2023 07:44-0500 Diastolic blood pressure 82 mm[Hg] Wilfredo Keen DO Work Phone: [employer] 10-17-2023 07:44-0500 Heart rate 90 /min Wilfredo Keen DO Work Phone: [employer] 10-17-2023 07:44-0500 Respiratory rate 12 /min Wilfredo Keen DO Work Phone: [employer] 10-17-2023 07:44-0500 SaO2% (BldA) [Mass fraction] 95 % Wilfredo Keen DO Work Phone: [employer] 10-17-2023 07:44-0500 Systolic blood pressure 125 mm[Hg] Wilfredo Keen DO Work Phone: [employer] 10-17-2023 02:40-0500 Body mass index (BMI) [Ratio] 44.46 kg/m2 Wilfredo Keen DO Work Phone: [employer] 10-17-2023 02:40-0500 Body weight 106.73 kg Wilfredo Keen DO Work Phone: [employer] 10-15-2023 09:19-0500 Body height 154.9 cm Wilfredo Keen DO Work Phone: [employer] 09-15-2023 07:01-0500 Body height 154.9 cm Pmh 1 [employer] 09-15-2023 07:01-0500 Body mass index (BMI) [Ratio] 41.19 kg/m2 Pmh 1 [employer] 09-15-2023 07:01-0500 Body weight 98.88 kg [facility] Encounter Date Encounter Type Care Provider Facility Start: 03-02-2025 End: 03-02-2025 Clinisync Result Encounter Generic External Data Provider [facility] External Department Unsolicited Start: 03-02-2025 End: 03-02-2025 Clinisync Result Encounter Generic External Data Provider [facility] External Department Unsolicited Start: 03-01-2025 End: 03-01-2025 Chrisboo flowsmaria elena Hancock MD Work Phone: [facility] Start: 03-01-2025 End: 03-01-2025 Bamboo flowsheet Sam Hancock MD Work Phone: [facility] Start: 03-01-2025 End: 03-01-2025 Office outpatient visit 25 minutes Sam Hancock MD Work Phone: [facility] Comment on above: Preoperative clearan ce (Primary Dx); Post-menopausal bleeding; Essential hypertension, benign ; Paroxysmal atrial fibrillation (HCC); Chronic obstructive pulmonary disease, unspecified COPD type (HCC); Gouty arthritis Start: 03-01-2025 End: 03-01-2025 Preoperative state Sam Hancock MD Work Phone: [facility] Work Phone: Start: 03-01-2025 End: 03-01-2025 ambulatory SAM HANCOCK Not Available Start: 02-20-2025 End: 02-20-2025 Office outpatient visit 15 minutes Azeem Lety DO Work Phone: [facility] Comment on above: Pre-op examination; Post-menopausal bleeding Start: 02-20-2025 End: 02-20-2025 Preprocedural examination done Azeem Lety DO Work Phone: [facility] Start: 02-20-2025 End: 02-20-2025 ambulatory AZEEM LETY Not Available Start: 02-13-2025 End: 02-13-2025 ambulatory [facility] Start: 02-13-2025 End: 02-13-2025 Encounter for preprocedural cardiovascular examination [facility] Start: 02-01-2025 End: 02-01-2025 Bamboo flowsheet Christy Cary PT Work Phone: [facility] Start: 02-01-2025 End: 02-01-2025 Bamboo flowsheet Christy J Saroj PT Work Phone: [facility] Start: 02-01-2025 End: 02-01-2025 ambulatory Christy Laws Saroj PT Work Phone: [facility] Comment on above: Primary osteoarthrit is of left hip; Status post total hip replacement, left Start: 01-25-2025 End: 01-25-2025 Bamboo flowsheet Christy J Saroj PT Work Phone: [facility] Start: 01-25-2025 End: 01-25-2025 Bamboo flowsheet Christy Laws Saroj PT Work Phone: [facility] Start: 01-25-2025 End: 01-25-2025 ambulatory Christy Laws Saroj PT Work Phone: [facility] Comment on above: General weakness (Pr imary Dx); Impaired functional mobility, balance, gait, and endurance; History of 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 joint Start: 01-10-2025 End: 01-10-2025 Bamboo flowsheet Azeem Lety DO Work Phone: [facility] Start: 01-10-2025 End: 01-10-2025 Bamboo flowsheet Azeem Lety DO Work Phone: [facility] Start: 01-10-2025 End: 01-10-2025 Office outpatient visit 15 minutes Azeem Lety DO Work Phone: [facility] Comment on above: Post-menopausal blee ding Start: 01-10-2025 End: 01-10-2025 ambulatory AZEEM LETY Not Available Start: 01-09-2025 ambulatory SAM HANCOCK [facility] Start: 01-04-2025 End: 01-04-2025 Bamboo flowsheet Sam Hancock MD Work Phone: [facility] Start: 01-04-2025 End: 01-04-2025 Bamboo flowsheet Sam Hancock MD Work Phone: [facility] Start: 01-04-2025 End: 01-04-2025 Office outpatient visit 25 minutes Sam Hancock MD Work Phone: [facility] Comment on above: Essential hypertensi on, benign (CMS/HCC) (Primary Dx); Major depressive disorder, recurrent episode, moderate degree (CMS/HCC); Generalized anxiety disorder (CMS/HCC); Chronic obstructive pulmonary disease, unspecified COPD type (CMS/HCC); Adult hypothyroidism (CMS/HCC); Breast cancer screening by mammogram; Arthritis of ankle, left; Primary osteoarthritis of left hip; Status post total hip replacement, left Start: 01-04-2025 End: 01-04-2025 ambulatory SAM HANCOCK Not Available Start: 12-13-2024 End: 12-13-2024 Telephone encounter Jalen Pierce MD Work Phone: [facility] Start: 12-10-2024 End: 12-12-2024 Refill Myrtle Cota MD Work Phone: [facility] Comment on above: LPRD (laryngopharyng eal reflux disease) Start: 10-28-2024 End: 10-28-2024 Telephone encounter Andria Hoffman [facility] Comment on above: Attribution Outreach Start: 09-07-2024 End: 09-07-2024 Bamboo keya Cota MD Work Phone: [facility] Start: 09-07-2024 End: 09-07-2024 Bamboo flowsmaria elena Cota MD Work Phone: [facility] Start: 09-07-2024 End: 09-07-2024 ambulatory MYRTLE COTA Not Available Start: 09-07-2024 End: 09-07-2024 Office outpatient new 45 minutes Myrtle Cota MD Work Phone: [facility] Comment on above: LPRD (laryngopharyng eal reflux disease) (Primary Dx); Chronic coughing Start: 09-05-2024 End: 09-05-2024 Bamboo flowsheet Sam Hancock MD Work Phone: [facility] Start: 09-05-2024 End: 09-05-2024 Bamboo flowsheet Sam Hancock MD Work Phone: [facility] Start: 09-05-2024 End: 09-05-2024 Office outpatient visit 25 minutes Sam Hancock MD Work Phone: [facility] Comment on above: Globus sensation (Pr imary Dx); Chronic superficial gastritis without bleeding; Degeneration of intervertebral disc of lumbar region with discogenic back pain and lower extremity pain; Chronic obstructive pulmonary disease, unspecified COPD type (CMS/HCC); Major depressive disorder, recurrent episode, moderate degree (CMS/HCC); Class 3 severe obesity due to excess calories with serious comorbidity and body mass index (BMI) of 45.0 to 49.9 in adult (CMS/HCC) Start: 09-05-2024 End: 09-05-2024 ambulatory SAM HANCOCK Not Available Start: 08-02-2024 End: 12-15-2024 Telephone encounter Aparna ROBERTO [facility] Start: 07-29-2024 End: 07-29-2024 Patient encounter procedure [facility] Pre-Admission Testing 1 [facility] - Pre Ad[facility] Start: 07-29-2024 End: 07-29-2024 ambulatory SAM HANCOCK [facility] Start: 07-29-2024 End: 07-29-2024 ambulatory SUZETTE CEJA [facility] Start: 07-20-2024 End: 07-20-2024 Telephone encounter Aparna ROBERTO [facility] Start: 07-20-2024 End: 07-20-2024 Office outpatient new 30 minutes Adia Iglesias [employer] 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-[employer] Work Phone: [facility] Comment on above: Bleeding internal he morrhoids (Primary Dx) Start: 07-20-2024 End: 07-20-[facility] Start: 07-01-2024 End: 07-01-2024 Orders Only Sam Hancock MD Work Phone: [facility] Comment on above: Adult hypothyroidism (CMS/HCC) (Primary Dx) Edema of both legs ( Primary Dx) Start: 06-30-2024 End: 06-30-2024 External Result Encounter Sam Hancock MD Work Phone: [facility] External Department Unsolicited Start: 06-30-2024 End: 06-30-2024 External Result Encounter Sam Hanocck MD Work Phone: [facility] External Department Unsolicited Start: 06-30-2024 End: 06-30-2024 ambulatory SAM HANCOCK [facility] Start: 06-21-2024 End: 06-21-2024 ambulatory SAM HANCOCK Not Available Start: 06-21-2024 End: 06-21-2024 Office outpatient visit 25 minutes Sam Hancock MD Work Phone: [facility] Comment on above: Essential hypertensi on, [...] flowsheet Sam Hancock MD Work Phone: [facility] Start: 06-21-2024 End: 06-21-2024 Bamboo flowsheet Sam Hancock MD Work Phone: [facility] Start: 04-28-2024 End: 04-28-2024 Office outpatient visit 25 minutes Jalen Pierce MD [facility] Comment on above: Periprosthetic fract ure around internal prosthetic left hip joint, subsequent encounter (Primary Dx); S/P revision of total hip; Morbid obesity with BMI of 40.0-44.9, adult ([facility] Start: 04-28-2024 End: 04-28-2024 ambulatory [facility] Start: 01-21-2024 End: 01-21-2024 Postop follow up visit related to original px Jalen Pierce MD Work Phone: [facility] Comment on above: S/P revision of tota l hip (Primary Dx); Osteoarthritis of left shoulder, unspecified osteoarthritis type; Osteoarthritis of right elbow, unspecified osteoarthritis type; Morbid obesity with BMI of 40.0-44.9, adult [place] Right elbow pain; Chronic left shoulder pain Start: 01-21-2024 End: 01-21-2024 ambulatory [facility] Start: 12-09-2023 End: 12-09-2023 Telephone encounter Andria Hoffman [facility] Comment on above: attribution outreach Start: 12-07-2023 End: 12-07-2023 Telephone encounter Jalen Pierce MD Work [facility] Start: 11-24-2023 End: 11-24-2023 ambulatory JALEN PIERCE [facility] Start: 11-24-2023 End: 11-24-2023 Postop follow up visit related to original px Jalen Pierce MD Work Phone: [facility] Comment on above: Right elbow pain (Pr imary Dx); S/P revision of total hip; Morbid obesity with BMI of 40.0-44.9, adult [place] Chronic left shoulder pain Start: 11-18-2023 End: 11-19-[facility] Start: 11-14-2023 End: 11-14-2023 Evaluation and management of inpatient CLAUDY NAVARRETE [facility] Start: 11-10-2023 End: 11-14-2023 Evaluation and management of inpatient FRANCO ADHIKARI [facility] Start: 11-09-2023 End: 11-14-2023 Evaluation and management of inpatient CHRISTY MARTINEZ [facility] Start: 11-09-2023 End: 11-14-2023 Evaluation and management of inpatient JALEN [facility] Start: 11-07-2023 End: 11-14-2023 Evaluation and management of inpatient JALEN [facility] Start: 11-07-2023 End: 11-14-2023 Evaluation and management of inpatient JABARIMary [facility] Start: 11-07-2023 End: 11-14-2023 Emergency department patient visit [facility] Start: 11-07-2023 Encounter for other preprocedural examination LIT GIFFORD [facility] Start: 11-07-2023 End: 11-14-2023 [facility] Start: 11-07-2023 End: 11-14-2023 Emergency department patient visit [facility] Start: 10-15-2023 End: 10-17-2023 Subsequent hospital visit by physician Wilfredo Keen DO Work Phone: [facility] Comment on above: Primary localized os teoarthritis of left hip (Primary Dx) Start: 10-06-2023 Refill Sam Eng Work Phone: [facility] Comment on above: Essential hypertensi on, benign (CMS/HCC) (Primary Dx) Start: 09-24-2023 Patient encounter status Sam Hancock MD Work Phone: [facility] Start: 09-24-2023 End: 06-21-2024 Preoperative state Sam Hancock MD Work Phone: [facility] Start: 09-18-2023 End: 09-18-2023 Patient encounter procedure [facility] Pre-Admission Testing 1 [facility] - Pre Ad[facility] Comment on above: Preop examination (P rimary Dx); Hypertension, unspecified type; Atrial fibrillation, unspecified type [place] BMI 40.0-44.9, adult ([facility] Start: 09-18-2023 End: 09-18-2023 Preprocedural examination done Pm 1 [facility] Start: 03-20-[address] SAM HANCOCK Facil ity:[facility] Start: 01-16-2022 End: 01-17-[address] SAM HANCOCK Facility:[facility] Start: 01-16-2022 End: 01-17-[address] SAM HANCOCK Facility:[facility] Start: 10-17-2021 End: 10-18-2021 ambulatory FILIPPO CHOWDARY Facility:[facility] Start: 07-25-2021 End: 07-26-2021 ambulatory FILIPPO CHOWDARY Facility:[facility] Start: 05-04-2021 Encounter for genera l adult medical examination without abnormal findings DR TAY CLAY [facility] Start: 04-25-2021 End: 04-26-2021 Encounter for general adult medical examination without abnormal findings DR TAY CLAY Facility:[facility] Start: 04-25-2021 End: 04-26-[address] TAY CLAY Facility:[facility] Start: 03-26-2021 Encounter for other preprocedural examination DR TAY CLAY [facility] Start: 03-26-2021 End: 03-26-[address] TAY CLAY Facility:[facility] Start: 03-21-[address] TAY CLAY Facili ty:[facility] Start: 03-19-2021 End: 03-19-[address] TAY CLAY Facility:[facility] Start: 03-16-2021 End: 03-17-[address] TAY CLAY Facility:[facility] Start: 03-16-2021 End: 03-17-2021 Encounter for other preprocedural examination DR TAY CLAY Facility:[facility] Start: 03-01-2021 End: 03-01-[address] GEORGIA ROME Facility:[facility] Start: 02-04-2021 End: 02-05-[address] TAY CLAY Facility:[facility] Procedures Date Procedure Procedure Detail Performing Clinician Start: 03-02-2025 XR CHEST 2V Azeem Fazi o DO Work Phone: Start: 03-02-2025 ALL CBC WITH AUTO DIFF Azeem Lety DO Work Phone: Start: 06-30-2024 Complete blood count with white cell differential, automated Sam Hancock MD Work Phone: Start: 01-21-2024 Follow-up visit Follow-up JALEN PIERCE Start: 10-15-2023 Radex hip unilateral with pelvis 2-3 views Wilfredo Mccarthy [employer] DO Work Phone: Start: 10-15-2023 End: 10-15-2023 Arthrp acetblr/prox fem prostc agrft/algrft Wilfredo Mccarthy [employer] DO Work Phone: Start: 10-15-2023 REPEATED ABORH Wilfredo Fabio [employer] DO Work Phone: Start: 07-06-2023 Microscopic observat ion [Identifier] in Cervix by Cyto stain [facility]mh 1 Start: 02-13-2023 Colonoscopy Sam downs MD Work Phone: Plan of Treatment Date Care Activity Detail Author Start: 02-13-2033 Screening for malignant neoplasm of colon [facility] Start: 07-06-2028 Screening for malignant neoplasm of cervix [facility] Start: 07-06-2026 Screening for malignant neoplasm of cervix Pap Smear [facility] Start: 07-29-2025 Adult BMI Screening Adult BMI Screening [facility] Start: 07-29-2025 Tobacco Screening Tobacco Screening [facility] Start: 07-20-2025 Adult BMI Screening Adult BMI Screening [facility] Start: 07-20-2025 Tobacco Screening Tobacco Screening [facility] Start: 06-07-2025 End: 06-07-2025 Patient encounter procedure 06/07/2025 8:00 AM EDT Office Visit [facility] [address] [place] [address] Sam Hancock MD [address] [place] [address] [facility] Start: 04-28-2025 Adult BMI Screening Adult BMI Screening [facility] Start: 04-24-2025 Influenza vaccination [facility] Start: 04-06-2025 End: 04-06-2025 Patient encounter procedure 04/06/2025 9:30 AM EDT Office Visit [facility] [address] [place] [address] Sam Hancock MD [address] [place] [address] [facility] Start: 03-27-2025 End: 03-27-2025 Patient encounter procedure 03/27/2025 8:30 AM EDT Office Visit [facility] [address] [place] [phone] Nola Knight PA [address] [place] [address] [facility] Start: 03-01-2025 End: 03-01-2025 Patient encounter procedure [facility] Comment on above: Arrived Start: 02-20-2025 End: 02-20-2025 Patient encounter procedure 02/20/2025 10:40 AM EDT Consult [facility] [address] [place] [phone] Azeem Davidson DO [address] [facility] [address] [place] [address] [facility] Start: 02-08-2025 End: 02-08-2025 ambulatory 02/08/2025 7:00 AM EDT Treatment [facility] [address] [place] [phone] Christy Cary, PT [address] [place] [address] [facility] Start: 02-01-2025 End: 02-01-2025 ambulatory 02/01/2025 7:00 AM EDT Treatment [facility] [address] [place] [phone] Christy Cary, PT [address] [place] [address] [facility] Start: 01-24-2025 Tobacco Screening Tobacco Screening [facility] Start: 01-20-2025 Adult BMI Screening Adult BMI Screening [facility] Start: 01-20-2025 Tobacco Screening Tobacco Screening [facility] Start: 01-12-2025 End: 01-12-2025 ambulatory 01/12/2025 9:00 AM EDT Evaluation [facility] [address] [place] [phone] Christy Cary, PT [address] [place] [address] [facility] Start: 01-10-2025 End: 01-10-2025 Patient encounter procedure [facility] Comment on above: Arrived Start: 01-04-2025 End: 03-06-2026 MG Breast - bilateral Screening Bilateral screening mammogram Imaging Routine Breast cancer screening by mammogram Expected: 01/04/2025, Expires: 03/06/2026 [facility] Work Phone: Comment on above: Expected: 01/04/2025, Expires: Start: 01-04-2025 End: 01-04-2026 Thyrotropin [Units/volume] in Serum or Plasma TSH Lab Routine Adult hypothyroidism (CMS/HCC) Expected: 01/04/2025 (Approximate), Expires: 01/04/2026 [facility] Comment on above: Expected: 01/04/2025 (Approximate), Expi res: 01/04/2026 Start: 01-04-2025 End: 01-04-2026 Thyroxine (T4) free [Mass/volume] in Serum or Plasma T4, free Lab Routine Adult hypothyroidism (CMS/HCC) Expected: 01/04/2025 (Approximate), Expires: 01/04/2026 [facility] Comment on above: Expected: 01/04/2025 (Approximate), Expi res: 01/04/2026 Start: 01-04-2025 End: 01-04-2026 Triiodothyronine (T3) Free [Mass/volume] in Serum or Plasma T3, free Lab Routine Adult hypothyroidism (CMS/HCC) Expected: 01/04/2025 (Approximate), Expires: 01/04/2026 [facility] Comment on above: Expected: 01/04/2025 (Approximate), Expi res: 01/04/2026 Start: 01-04-2025 End: 01-04-2026 Urate [Mass/volume] in Serum or Plasma Uric acid Lab Routine Arthritis of ankle, left Expected: 01/04/2025 (Approximate), Expires: 01/04/2026 [facility] Comment on above: Expected: 01/04/2025 (Approximate), Expi res: 01/04/2026 Start: 01-04-2025 End: 01-04-2025 Patient encounter procedure 01/04/2025 9:15 AM EDT Office Visit [facility] [address] [place] [phone] Sam Hancock MD [address] [place] [phone] Arrived [facility] Comment on above: Arrived Start: 12-15-2024 End: 12-15-2024 Patient encounter procedure 12/15/2024 1:30 PM EDT Office Visit [facility] [address] [place] [phone] Sam Hancock MD [address] [place] [phone] [facility] Start: 12-02-2024 Tobacco Screening Tobacco Screening [facility] Start: 11-23-2024 Adult BMI Screening Adult BMI Screening [facility] Start: 09-27-2024 End: 09-27-2024 Patient encounter procedure 09/27/2024 8:00 AM EST Office Visit [facility] [address] [facility] [facility] [place] [phone] Jalen Pierce MD [facility] [place] [address] [facility] Start: 09-18-2024 Tobacco Screening Tobacco Screening [facility] Start: 09-15-2024 Adult BMI Screening Adult BMI Screening [facility] Start: 09-05-2024 End: 09-05-2024 Patient encounter procedure 09/05/2024 11:30 AM EST Office Visit [facility] [address] [place] [address] Sam Hancock MD [address] [place] [address] Arrived [facility] Comment on above: Arrived Start: 08-23-2024 End: 08-23-2024 Patient encounter procedure 08/23/2024 10:00 AM EST Office Visit [facility] [address] [place] [phone] Adia Iglesais, [employer]ANT [employer]ANCE [address] [place] [address] [facility] Start: 08-09-2024 End: 08-09-2024 Admission to same day surgery center 08/09/2024 8:45 AM EST - 08/09/2024 9:30 AM EST Surgery [facility] [address] [place] [phone] Sebastian Garcia DO [address], [place] [id number] HEMORRHOIDECTOMY [11476 (CPT )] [facility] Comment on above: HEMORRHOIDECTOMY [98908 (CPT )] Start: 08-09-2024 End: 08-09-2024 Anesthesia consultation 08/09/2024 8:45 AM EST Anesthesia Event [facility] [address] [place] [phone] Agustín Cox, DO [address] [place] [address] [facility] Start: 08-09-2024 End: 08-09-2024 Hemorrhoidectomy ntrnl & xtrnl 1 column/group HEMORRHOIDECTOMY rectal bleeding, internal hemorrhoids 08/09/2024 8:45 AM [facility] Start: 08-09-2024 Subsequent hospital visit by physician 08/09/2024 8:45 AM EST Hospital Encounter [facility] [address] [place] [phone] Sebastian Garcia, DO [address], [place] [phone] [facility] Start: 07-28-2024 End: 07-28-2024 Patient encounter procedure 07/28/2024 11:15 AM EST Office Visit [facility] [address] [place] [phone] Sam Hancock MD [address] [place] [phone] [facility] Start: 07-27-2024 End: 07-27-2024 Patient encounter procedure [facility] Start: 06-21-2024 End: 06-21-2025 Basic metabolic 1998 panel - Serum or Plasma Basic metabolic panel Lab Routine Essential hypertension, benign (CMS/HCC) Expected: 06/21/2024 (Approximate), Expires: 06/21/2025 [facility] Comment on above: Expected: 06/21/2024 (Approximate), Expi res: 06/21/2025 Start: 06-21-2024 End: 06-21-2025 CBC W Auto Differential panel - Blood CBC and differential Lab Routine Encounter for long-term (current) use of medications Expected: 06/21/2024 (Approximate), Expires: 06/21/2025 [facility] Comment on above: Expected: 06/21/2024 (Approximate), Expi res: 06/21/2025 Start: 06-21-2024 End: 06-21-2025 Hemoglobin A1c/Hemoglobin.total in Blood Hemoglobin A1c Lab Routine Prediabetes Expected: 06/21/2024 (Approximate), Expires: 06/21/2025 [facility] Work Phone: Comment on above: Expected: 06/21/2024 (Approximate), Expi res: 06/21/2025 Start: 06-21-2024 End: 06-21-2025 Hepatic function 2000 panel - Serum or Plasma Hepatic function panel Lab Routine Encounter for long-term (current) use of medications Expected: 06/21/2024 (Approximate), Expires: 06/21/2025 [facility] Comment on above: Expected: 06/21/2024 (Approximate), Expi res: 06/21/2025 Start: 06-21-2024 End: 06-21-2025 Lipid 1996 panel - Serum or Plasma Lipid panel Lab Routine Class 3 severe obesity due to excess calories with serious comorbidity and body mass index (BMI) of 45.0 to 49.9 in adult (CMS/HCC) Dyslipidemia (CMS/HCC) Expected: 06/21/2024 (Approximate), Expires: 06/21/2025 [facility] Comment on above: Expected: 06/21/2024 (Approximate), Expi res: 06/21/2025 Start: 06-21-2024 End: 06-21-2025 Thyrotropin [Units/volume] in Serum or Plasma TSH Lab Routine Primary hypothyroidism (CMS/HCC) Expected: 06/21/2024 (Approximate), Expires: 06/21/2025 [facility] Comment on above: Expected: 06/21/2024 (Approximate), Expi res: 06/21/2025 Start: 06-21-2024 End: 06-21-2025 Thyroxine (T4) free [Mass/volume] in Serum or Plasma T4, free Lab Routine Primary hypothyroidism (CMS/HCC) Expected: 06/21/2024 (Approximate), Expires: 06/21/2025 [facility] Comment on above: Expected: 06/21/2024 (Approximate), Expi res: 06/21/2025 Start: 04-24-2024 COVID-19 Vaccine ( season) COVID-19 Vaccine () [facility] Start: 04-24-2024 COVID-19 Vaccine () COVID-19 Vaccine () [facility] Start: 04-24-2024 Influenza vaccination [facility] Start: 04-21-2024 End: 04-21-2024 Patient encounter procedure 04/21/2024 8:30 AM EDT Office Visit [facility] [address] [place] [address] Jalen Pierce MD [address] [place] [address], [address] [place] [address] [facility] Start: 01-21-2024 End: 04-21-2024 XR Femur - left 2 Views X-ray femur left 2+ views Imaging Routine S/P revision of total hip Morbid obesity with BMI of 40.0-44.9, adult ([facility]) Right elbow pain Chronic left shoulder pain Expected: 01/21/2024, Expires: 04/21/2024 [facility] Work Phone: Comment on above: Expected: 01/21/2024, Expires: Start: 01-12-2024 End: 01-12-2024 Patient encounter procedure 01/12/2024 10:30 AM EDT Office Visit [facility] [address] [place] [phone] Jalen Pierce MD [facility] [place], [place] [phone] [facility] Start: 12-03-2023 End: 12-02-2024 XR Elbow - right 3 Views X-ray elbow right minimum 3 views Imaging Routine Right elbow pain Expected: 12/03/2023, Expires: 12/02/2024 [facility] Work Phone: Comment on above: Expected: 12/03/2023, Expires: 5 Start: 12-03-2023 End: 12-02-2024 XR Shoulder - left 2 Views X-ray shoulder left minimum 2 views Imaging Routine Chronic left shoulder pain Expected: 12/03/2023, Expires: 12/02/2024 [facility] [employer] [facility] Comment on above: Expected: 12/03/2023, Expires: 5 Start: 11-24-2023 End: 02-23-2024 XR Elbow - right 3 Views X-ray elbow right minimum 3 views Imaging Routine Morbid obesity with BMI of 40.0-44.9, adult ([facility] S/P revision of total hip Right elbow pain Chronic left shoulder pain Expected: 11/24/2023, Expires: 02/23/2024 [facility] Comment on above: Expected: 11/24/2023, Expires: 4 Start: 11-24-2023 End: 02-23-2024 XR Femur - left 2 Views X-ray femur left 2+ views Imaging Routine Morbid obesity with BMI of 40.0-44.9, adult ([facility] S/P revision of total hip Right elbow pain Chronic left shoulder pain Expected: 11/24/2023, Expires: 02/23/2024 [facility] Comment on above: Expected: 11/24/2023, Expires: 4 Start: 11-24-2023 End: 02-23-2024 XR Shoulder - left 2 Views X-ray shoulder left minimum 2 views Imaging Routine Morbid obesity with BMI of 40.0-44.9, adult ([facility]) S/P revision of total hip Right elbow pain Chronic left shoulder pain Expected: 11/24/2023, Expires: 02/23/2024 [facility] Work Phone: Comment on above: Expected: 11/24/2023, Expires: Start: 11-23-2023 End: 11-23-2023 Patient encounter procedure 11/23/2023 9:15 AM EDT Office Visit [facility] [address] [address] Sam Hancock MD [address] [address] [facility] Start: 10-22-2023 End: 10-22-2023 Patient encounter procedure 10/22/2023 10:45 AM EST Office Visit [facility] [address] [facility] [place] [address] Wilfredo Keen, [address] [facility] [address] [place] [address] [facility] Start: 10-15-2023 End: 10-15-2023 Admission to same day surgery center 10/15/2023 10:15 AM EST - 10/15/2023 12:15 PM EST Surgery [facility] [address] [place] [address] Wilfredo Keen DO [address] [facility] [address] [place] [address] REPLACEMENT TOTAL JOINT HIP [01857 (CPT )] [facility] Comment on above: REPLACEMENT TOTAL JOINT HIP [69102 (CPT )] Start: 10-15-2023 End: 10-15-2023 Arthrp acetblr/prox fem prostc agrft/algrft REPLACEMENT TOTAL JOINT HIP left hip degenerative joint disease 10/15/2023 10:15 AM EST [facility] Start: 10-15-2023 Subsequent hospital visit by physician 10/15/2023 10:15 AM EST Hospital Encounter [facility] [address] [place] [address] Wilfredo Keen, DO [address] [place] [address] [facility] Start: 10-15-2023 End: 10-15-2023 Patient encounter procedure 10/15/2023 7:30 AM EST Procedure Visit [facility] Wilfredo Keen, DO [address] [place] [address] [facility] Start: 10-05-2023 End: 09-15-2024 Crossmatch RBC Crossmatch RBC Blood Bank Routine Preop examination Hypertension, unspecified type Atrial fibrillation, unspecified type (CMS-HCC) BMI 40.0-44.9, adult (CMS-HCC) Expected: 10/05/2023, Expires: 09/15/2024 [facility] Comment on above: Expected: 10/05/2023, Expires: Start: 10-05-2023 End: 09-15-2024 Type and screen(includes indirect eloisa) Type and screen(includes indirect eloisa) Blood Bank Routine Preop examination Hypertension, unspecified type Atrial fibrillation, unspecified type (CMS-HCC) BMI 40.0-44.9, adult (CMS-HCC) Expected: 10/05/2023, Expires: 09/15/2024 [facility] Work Phone: Comment on above: Expected: 10/05/2023, Expires: Start: 04-24-2023 COVID-19 Vaccine ( season) COVID-19 Vaccine () [facility] [employer] [facility] Start: 04-24-2023 Influenza vaccination [facility] Start: 03-23-2022 Screening for malignant neoplasm of colon FIT-DNA [facility] Start: 2017 Administration of varicella zoster vaccine Zoster (Shingles) Vaccine (1 of 2) [facility] Start: 2007 Screening for malignant neoplasm of breast Mammogram [facility] Start: 1997 Screening for malignant neoplasm of cervix [facility] Start: 1988 Screening for malignant neoplasm of cervix Pap Smear [facility] Start: 1986 DTaP,Tdap and Td Vaccines (1 - Tdap) DTaP,Tdap and Td Vaccines (1 - Tdap) [facility] Start: 1985 Adult BMI Follow Up Plan Adult BMI Follow Up Plan [facility] Start: 1979 Depression Screening Depression Screening [facility] Start: 1967 Screening for malignant neoplasm of colon [facility] Start: 1967 Screening for malignant neoplasm of lung Lung Cancer Screening Shared Decision Making [facility] End: 07-20-2025 Unlisted Procedure / Surgery Unlisted Procedure / Surgery Procedures Routine Bleeding internal hemorrhoids 1 Occurrences starting 07/20/2024 until 07/20/2025 [facility] Work Phone: Comment on above: 1 Occurrences starting 07/20/2024 until 07/20/2025 Immunizations Immunization Date Immunization Notes Care Provider Lindsey walden 03-20-2021 influenza virus vacc ine, unspecified formulation Pmh 1 [facility] Payers Date Payer Category Payer Medicaid [id number] 2024 Medicaid [id number] 2023 Self-pay 2023 Managed Care HMO (unspecified) [id number] 2023 Unknown MYKE HOPKINSPL LITZY MYKE DUMONT [id number] 2023-Present [phone] [address] [place] [address] [id number] 2023 Unknown [id number] 2018 Private Health Insurance [id number]. [id number] 1967 Unknown [id number] 2.16.840.1.878009.3.579.2. 593 1967 Unknown [id number] 2.16.840.1.046486.3.579.2. 593 1967 Unknown [id number] 2.16.840.1.026376.3.579.2. 593 1967 Unknown [id number] 2.16.840.1.825828.3.579.2. 593 1967 Unknown [id number] 2.16.840.1.707488.3.579.2. 593 1967 Unknown [id number] 2.16.840.1.579306.3.579.2. 593 1967 Unknown [id number] 2.16.840.1.275597.3.579.2. 593 1967 Unknown [id number] 2.16.840.1.344663.3.579.2. 593 1967 Unknown [id number] 2.16.840.1.020822.3.579.2. 593 1967 Unknown [id number] 2.16.840.1.857975.3.579.2. 593 1967 Unknown [id number] 2.16.840.1.520021.3.579.2. 593 1967 Unknown [id number] 2.16.840.1.436695.3.579.2. 593 1967 Unknown [id number] 2.16.840.1.276982.3.579.2. 593 1967 Unknown [id number] 2.16.840.1.397274.3.579.2. 718 1967 Unknown [id number] 2.16.840.1.124373.3.579.2. 1285 1967 Unknown [id number] 2.16.840.1.916092.3.579.2. 1285 1967 Unknown [id number] 2.16.840.1.488510.3.579.2. 1285 1967 Unknown [id number] 2.16.840.1.262070.3.579.2. 1285 1967 Unknown [id number] 2.16.840.1.475136.3.579.2. 1285 1967 Unknown [id number] 2.16.840.1.006545.3.579.2. 1285 1967 Unknown [id number] 2.16.840.1.753752.3.579.2. 1285 1967 Unknown [id number] 2.16.840.1.214346.3.579.2. 1285 1967 Unknown [id number] 2.16.840.1.838436.3.579.2. 1285 1967 Unknown [id number] 2.16.840.1.156045.3.579.2. 1285 1967 Unknown [id number] 2.16.840.1.766277.3.579.2. 1285 1967 Unknown [id number] 2.16.840.1.102229.3.579.2. 1285 1967 Unknown [id number] 2.16.840.1.918233.3.579.2. 1285 1967 Unknown [id number] 2.16.840.1.121985.3.579.2. 1285 1967 Unknown [id number] 2.16.840.1.012295.3.579.2. 1285 1967 Unknown [id number] 2.16.840.1.751731.3.579.2. 1285 1967 Unknown [id number] 2.16.840.1.730772.3.579.2. 128 1967 Unknown [id number] 2.16.840.1.548756.3.579.2. 1285 1967 Unknown [id number] 2.16.840.1.973590.3.579.2. 1285 1967 Unknown [id number] 2.16.840.1.040651.3.579.2. 1285 1967 Unknown [id number] 2.16.840.1.208287.3.579.2. 1285 1967 Unknown [id number] 2.16.840.1.373648.3.579.2. 1285 1967 Unknown [id number] 2.16.840.1.140466.3.579.2. 1285 1967 Unknown [id number] 2.16.840.1.729544.3.579.2. 1258 1967 Unknown [id number] 2.16.840.1.231139.3.579.2. 1258 1967 Unknown [id number] 2.16.840.1.779448.3.579.2. 1258 1967 Unknown [id number] 2.16.840.1.609010.3.579.2. 1258 1967 Unknown [id number] 2.16.840.1.201226.3.579.2. 1258 1967 Unknown [id number] 2.16.840.1.562789.3.579.2. 1258 1967 Unknown [id number] 2.16.840.1.964272.3.579.2. 1258 1967 Unknown [id number] 2.16.840.1.383451.3.579.2. 1258 1967 Unknown [id number] 2.16.840.1.868176.3.579.2. 1258 1959 Unknown [id number] Social History Date Type Detail Facility Start: 09-01-2023 End: 09-07-2024 Tobacco smoking status NHIS Ex-smoker [facility] Start: 08-24-1982 End: 08-24-2012 History of tobacco use Current smoker [facility] Start: 08-24-1982 End: 08-24-2012 History of tobacco use Cigarette Smoker [facility] Start: 09-01-2023 End: 03-01-2025 Cigarettes smoked current (pack per day) - Reported 1 [facility] Start: 09-24-2023 End: 03-01-2025 Alcohol intake Current drinker of alcohol (finding) [facility] Start: 08-21-2023 End: 03-01-2025 Alcohol Use Disorder Identification Test - Consumption [AUDIT-C] [facility] How often to you hav e a drink containing alcohol? 4 or more times a week [facility] How many standard dr inks containing alcohol do you have on a typical day? 3 or 4 [facility] How often do you hav e 6 or more drinks on 1 occasion? Never [facility] Start: 1965 Sex Assigned At Not on file [facility] Start: 09-18-2023 End: 01-21-2024 Tobacco use and exposure Smokeless tobacco non-user [facility] Has the [employer], [employer], or water [employer] threatened to shut off services in your home in past 12Mo No [facility] In the past 12 month s, has lack of transportation kept you from medical appointments or from getting medications? No [facility] Start: 03-29-2015 Sex Female (finding) [facility] Medical Equipment Procedure Code Equipment Code Equipment Origin al Text Equipment Identifier Dates Assembly Cblpn [address] Cocr Crlge Strl Rpl [id number] - [id number] Start: 11-09-2023 Assembly Cblpn [address] Cocr Crlge Strl Rpl [id number] - [id number] Start: 11-09-2023 Assembly Cblpn [address] Cocr Crlge Strl Rpl [id number] - [id number] Start: 11-09-2023 Shell Actb 44mm Hip 3 Hl Clr Cd [place] G7 A Hmsphr - Sna - [id number] Start: 10-15-2023 Stem Fem 137d 1 08/06 37mm Fitmore Protasul-64 Hip Rgh Blast - Sna - [id number] Start: 10-15-2023 Head Fem 28mm +3 .5mm 08/06 Lg Trlg It Contin Blx D Hip Actb - Sna - [id number] Start: 10-15-2023 G7 Acetabular Systemvivacit-E Highly Crosslinked Polyethylene Liner High Wall [id number] Start: 10-15-2023 Shell Actb 48mm Hip Mlhl Clr Cd [place] G7 C Hmsphr - [id number] Start: 11-09-2023 Shani Modular Re vision Hip System Sts Distal Stem [id number] Start: 11-09-2023 Liner Actb 32mm C Vivacit-E Lum G7 Hip Strl Lf - [id number] Start: 11-09-2023 Body Cone Hip Fe m C Std Os 60mm Shani Ti Strl Mdlr Rev Sys Rpl [id number] - [id number] Start: 11-09-2023 Biolox Delta Mod ular Ceramic Head [id number] Start: 11-09-2023 Screw Bn 25mm 6. [address] Hip Trlg Strl Rpl [id number] - Sna - [id number] Start: 10-15-2023 Screw Bn 30mm 6. [address] Actb Giovani Trlg Strl Rpl [id number] - Sna - [id number] Start: 10-15-2023 Screw Bn 20mm 6. [address] Hip Actb Trlg Strl Rpl [id number] - [id number] Start: 11-09-2023 Screw Bn 50mm 6. [address] Hip Trlg Strl Rpl [id number] - [id number] Start: 11-09-2023 Screw Bn 15mm 6. [address] Hip Actb Trlg Strl Rpl [id number] - [id number] Start: 11-09-2023 Screw Bn 15mm 6. [address] Hip Actb Trlg Strl Rpl [id number] - [id number] Start: 11-09-2023 Goals Date Patient Goal Desired Activity /State Personal health goal Comment on above: Formatting of this n ote might be different from the original. Evaluation of progress towards goal: has been up with therapy Personal health goal Comment on above: Formatting of this n ote might be different from the original. Evaluation of progress towards goal: Discharge plan is home with home health care. Clinical Notes 02-04-2021 to 03-01-2025 Sam Hancock MD - 03/01/2025 8:48 AM Linda Hancock MD - 03/01/2025 8:48 AM Linda Hancock MD - 03/01/2025 8:47 AM Linda Hancock MD - 03/01/2025 8:47 AM EDTPatient Instructions Note Date & Type Note Facility 03-01-2025 History of Present illness Narrative Associated Problem(s): Preoperative clearance Able to proceed with surgery at low risk for complications pending results of echo. Seen by cardiology for clearance. No chest pain or palpitations. Associated Problem(s): Post-menopausal bleeding Follow with medical assistant ob gyn. Associated Problem(s): Paroxysmal atrial fibrillation (HCC) In NSR and continue medication. Associated Problem(s): Gouty arthritis Start allopurinol. Associated Problem(s): Essential hypertension, benign BP controlled and monitor PRN. Associated Problem(s): COPD (chronic obstructive pulmonary disease) (HCC) Symptoms stable and continue symbicort. Continue albuterol PRN. Images from the original note were not included. Subjective Patient ID: Og Badillo is a 59 y.o. female who presents for Follow-up (Surgical clearance d& c possible hyst). Presents for preoperative evaluation. Developed post-menopausal bleeding and scheduled for D&C. May eventually need hysterectomy. Overall feels well. Checking BP PRN and typically controlled. BP normal today. Taking medication daily and tolerating without side effects. Afib stable. No palpitations or heart racing. Not lightheaded or dizzy. COPD stable and mild SOB with exertion. Seen by cardiology few weeks ago and echo ordered. Patient [...] Continue albuterol PRN. Post-menopausal bleeding Follow with medical assistant ob gyn. Gouty arthritis Start allopurinol. Relevant Medications allopurinol (Zyloprim) 300 MG tablet Preoperative clearance - Primary Able to proceed with surgery at low risk for complications pending results of echo. Seen by cardiology for clearance. No chest pain or palpitations. Paroxysmal atrial fibrillation (HCC) In NSR and continue medication. documented in this encounter [facility] 02-20-2025 History of Present illness Narrative Reason for Appointment: Patient ID: Og Badillo is a 59 y.o. female who presents for Pre-op Visit Patient presents today for Pre Op appointment. Patient is scheduled to undergo D&C Hysteroscopy, possible Myosure on 03-17-[address] at [facility]. MEDICATIONS Current Outpatient Medications Medication Instructions allopurinol (ZYLOPRIM) 300 mg, Oral, Daily amLODIPine (NORVASC) 10 mg, Oral, Daily budesonide-formoterol (Symbicort) 160-4.5 MCG/ACT inhaler 2 puffs, Inhalation, 2 times daily, Rinse mouth with water after use to [...] Major depressive disorder, recurrent episode, moderate degree ([facility]) 09/24/2023 Class 3 severe obesity due to excess calories with serious comorbidity and body mass index (BMI) of 45.0 to 49.9 in adult ([facility] 09/24/2023 Status post total hip replacement, left 10/18/2023 Bleeding hemorrhoids 06/21/2024 Encounter for long-term (current) use of medications 06/21/2024 Edema of both legs 07/01/2024 Globus sensation 09/05/2024 COPD (chronic obstructive pulmonary disease) ([facility]) 09/05/2024 Post-menopausal bleeding 01/10/2025 Gouty arthritis 01/10/2025 General weakness 01/25/2025 Impaired functional mobility, balance, gait, and endurance 01/25/2025 History of 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 joint 01/25/2025 Resolved Ambulatory Problems Diagnosis Date Noted Chronic kidney disease, stage III (moderate) ([facility]) 09/03/2023 Encounter for preoperative assessment 09/24/2023 Acute postoperative pain of left hip 10/18/2023 Past Medical History: Diagnosis Date 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, midfoot Atrial fibrillation (HCC) Benign essential hypertension Chronic gastritis without bleeding CKD (chronic kidney disease), stage III ([facility]) JIGNA (generalized anxiety disorder) Generalized osteoarthritis of multiple sites Hypertension Hypothyroidism, adult Insomnia, persistent Right elbow pain Thyroid dysfunction Varus foot deformity, acquired, left HISTORY PAST MEDICAL HISTORY SOCIAL HISTORY Past Medical History: Diagnosis Date 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 of ankle, left Arthritis, midfoot Atrial fibrillation (HCC) Benign essential hypertension Bone cyst of left ankle Chronic gastritis without bleeding Chronic left shoulder pain Chronic pain of left ankle CKD (chronic kidney disease), stage III ([facility]) DDD (degenerative disc disease), lumbar Equinus contracture [...] NERVE 2020 Ispine -Dr. Clay OOPHORECTOMY Right RI KNEE SCOPE,DIAGNOSTIC Right 1997 TOTAL HIP ARTHROPLASTY [...] nursing note reviewed. 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 Vitals: Estimated body mass index is 42.48 kg/m as calculated from the following: Height as of 01/04/25: 5' 1 . Weight as of 01/10/25: 224 lb 12.8 oz. BP: No LMP recorded. Patient is postmenopausal. ASSESSMENT & PLAN ICD-10-CM 1. Pre-op examination Z01.818 2. Post-menopausal bleeding N95.0 Pre Op: Patient is doing well but has complaints of post-menopausal bleeding. I have discussed conservative management vs. surgical management with the patient in detail and patient desires surgical management at this time. Patient will undergo D&C Hysteroscopy, possible Myosure on 03/17/25. Surgical consents were signed, mmc was reviewed, and patient is to proceed to [facility] OR. Follow Up: Patient is to follow up between 1-2 weeks post operative to assess proper healing and recovery from procedure. Documented by Marium Altamirano LPN on behalf of: Azeem Davidson DO documented in this encounter [facility] 02-13-2025 Note [place] [facility] - [facility] Subjective Og Badillo is a 59 y.o. year old [...] (BMI) of 45.0 to 49.9 in adult COPD (chronic obstructive [...] use: Yes Comment: occasional Drug use: Never HPI Og is seen in follow-up. This is the first time I am meeting her. Last visit with us was 07/24/2022. She is a 59-year-old woman with history of paroxysmal atrial fibrillation, hypertension and hypothyroidism. she reports having had 2 episodes of atrial fibrillation prior to 2019 COVID. No recurrence that she can tell. She has been maintained on aspirin due to low [id number] score. She needs to undergo D&C. She was referred by her MAINTENANCE SHOP WELDER for preoperative evaluation. she denies chest pain, [...] (5' 1 ) SpO2 100% BMI 42.70 kg/m??? Smoking Status Former BSA 2.11 m??? Physical Exam Constitutional: Appearance: She is well-developed. [...] inhaler, Inhale 2 puffs twice a day., Disp: , Rfl: busPIRone (Buspar) 5 mg tablet, Take 5 mg by mouth if needed each day., Disp: , (more content not included)... [facility] 02-01-2025 History of Present illness Narrative Images from the original note were not included. Physical Therapy Physical Therapy Evaluation Visit Patient Name: Og Badillo Today's Date: 02/01/2025 Encounter Diagnoses Name Primary? Primary osteoarthritis of left hip Status post total hip replacement, left Visit number: 2 Sup time: 30 min Total time: 36 min Time in: 6:58 am Time out: 7:34 am Subjective Og Badillo 59 y.o. female presents to physical therapy w/ chief c/o weakness, endurance issues, decreased balance, fear of falling with hx of falling more than pain. Mechanism of Onset: hx of L ALIN 10/15/23, revision due to femur Fx 11/09/23 complications with that as well no formal PT after, hx of lack of movement/deconditioning, falls and fear of falling causing further weakness and mobility issues. Does not get out of house much, fearful, does not go in stores. Uses rollator outside of home, walker vs nothing in home using surfaces. Very poor standing activity tolerance. Current deficits: weakness, decreased balance, severely decreased endurance, impaired gait and functional mobility Pain: mild today Location: oz thighs more than actual hip(s) Aggravating Factors: sit to stand, standing, walking, in/ot of bed, ADLs/self care Relieving factors: rest Occupation: Has not worked since L ALIN and complications, now on SS and disability. Extracurricular/Leisure Activities: does not leave house much, does not shop, was having family do stuff around the house until recently trying to do things on her own due to lack of help. Precautions: High fall risk Objective Gait: Very wide NITISH, mod to severely compensated trendelenburg oz, unsteady without AD, reaches for chacon/surfaces, unable to make 200 ft walk from vehicle through office to exam room without seated rest break. Labored breathing noted with amb and during MADISON. 30 sec chair rise test= 4 reps with UE assist from chair and difficulty with controlled lowering. TUG= 18 sec without AD, gait belt on CGA, very unsteady turning, light min assist utilized. Static and dynamic standing balance poor, high fall risk. Advised to use rollator in/out of clinic from now on. L hip strength grossly 3-/5 MMT, R=4/5 grossly Treatment Interventions Education: educated on importance of HEP and walking regularly trying to fight to be up longer to build strength/endurance. Therapeutic Exercise: per MADISON grid, strength, endurance x 20 min sup demo and verbal cues for correct technique, min increased reps with all with difficulty due to endurance issues Therapeutic Activity: Exercises to improve dynamic activities, functional tasks, functional mobility to return to prior activity level x 10 min sup sit to stands, partial sit ups to aid in ease of functional mobility and amb around clinic 2 x 60 feet with SBA and rollator Gait Training: prn for improved quality and safety Neuromuscular re-education: balance/stability training static and dynamic as able. Modalities: heat/cold prn Assessment/Plan General weakness, balance deficits, hx of and fear of falling causing impaired gait and functional mobility, increased fall risk. S/p L ALIN 10/15/23, revision 11/09/23 with complications. Pt arrives with rollator much safer in appearance but still amb with wide NITISH decreased step ht and length oz. Fair tolerance to all, several seated rest breaks due to endurance issues and fear of falling. rest breaks ~1-2 min ea after each standing exercise other than HR and hip abd able to do them both before sitting. Prognosis fair due to severity of weakness/balance impairment, endurance issues, fear and only wanting to do 1 x week formal appointments at this time. documented in this encounter [facility] 01-25-2025 History of Present illness Narrative Images from the original note were not included. Physical Therapy Physical Therapy Evaluation Visit Patient Name: Og Badillo Today's Date: 01/25/2025 Encounter Diagnoses Name Primary? General weakness Yes Impaired functional mobility, balance, gait, and endurance History of 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 joint Visit number: 1 Subjective Og Badillo 59 y.o. female presents to physical therapy w/ chief c/o weakness, endurance issues, decreased balance, fear of falling with hx of falling more than pain. Mechanism of Onset: hx of L ALIN 10/15/23, revision due to femur Fx 11/09/23 complications with that as well no formal PT after, hx of lack of movement/deconditioning, falls and fear of falling causing further weakness and mobility issues. Does not get out of house much, fearful, does not go in stores. Uses rollator outside of home, walker vs nothing in home using surfaces. Very poor standing activity tolerance. Current deficits: weakness, decreased balance, severely decreased endurance, impaired gait and functional mobility Pain: mild today Location: oz thighs more than actual hip(s) Aggravating Factors: sit to stand, standing, walking, in/ot of bed, ADLs/self care Relieving factors: rest Occupation: Has not worked since L ALIN and complications, now on SS and disability. Extracurricular/Leisure Activities: does not leave house much, does not shop, was having family do stuff around the house until recently trying to do things on her own due to lack of help. Precautions: High fall risk Objective Gait: Very wide NITISH, mod to severely compensated trendelenburg oz, unsteady without AD, reaches for chacon/surfaces, unable to make 200 ft walk from vehicle through office to exam room without seated rest break. Labored breathing noted with amb and during MADISON. 30 sec chair rise test= 4 reps with UE assist from chair and difficulty with controlled lowering. TUG= 18 sec without AD, gait belt on CGA, very unsteady turning, light min assist utilized. Static and dynamic standing balance poor, high fall risk. Advised to use rollator in/out of clinic from now on. L hip strength grossly 3-/5 MMT, R=4/5 grossly Treatment Interventions Education: HEP education with demonstration with handout and review and importance as well as advisement to help keep her safe, Educated on Eval Findings and POC x 15 min self care/home maintenance Therapeutic Exercise: per MADISON grid, strength, endurance x 15 min sup demo and verbal cues for correct technique Therapeutic Activity: Exercises to improve dynamic activities, functional tasks, functional mobility to return to prior activity level Gait Training: prn for improved quality and safety Neuromuscular re-education: balance/stability training static and dynamic as able. Modalities: heat/cold prn Assessment/Plan General weakness, balance deficits, hx of and fear of falling causing impaired gait and functional mobility, increased fall risk. S/p L ALIN 10/15/23, revision 11/09/23 with complications. Patient Goals Short Term Goal #1: pt will demo improved functional LE strength/endurance per 30 sec chair rise test greater than or equal to 8 reps Short Term Goal #2: pt will demo at least min improved quality of gait Short Term Goal #3: pt will demo improved functional mobility, gait, balance per TUG less than or equal to 14 sec without AD Short Term Goal #4: pt will be ind with HEP for maintenance/progression prn at DC from PT Pt will benefit from skilled PT to address the above impairments for 1-3x/week for 4-8 weeks pending pt needs/progress Prognosis fair due to severity of weakness/balance impairment, fear and only wanting to do 1 x week formal appointments at this time. I hereby deem this POC medically necessary. Please sign below. Date: documented in this encounter [facility] 01-10-2025 History of Present illness Narrative Reason for Appointment: Patient ID: Og Badillo is a 59 y.o. female who presents for Post menopausal bleeding. Patient is was still having vaginal spotting up until the last 5 days when it stopped. Patient voiced she does have a vaginal odor for the past 3 months and patient voiced it smells like . Patient desires to discuss surgical management. Patient was given prescription for Provera 10mg for 14 days, but pharmacy never dispensed medication. Patient presents today for Consult appointment. MEDICATIONS Current Outpatient Medications Medication Instructions amLODIPine (NORVASC) 10 mg, Oral, Daily budesonide-formoterol (Symbicort) 160-4.5 MCG/ACT inhaler 2 puffs, Inhalation, 2 times daily, Rinse mouth with water after use to reduce aftertaste and incidence of candidiasis. Do not swallow. cyclobenzaprine (FLEXERIL) 10 mg, Oral, 3 times daily PRN famotidine (PEPCID) 20 mg, Oral, Nightly hydroCHLOROthiazide (HYDRODIURIL) 25 mg, Oral, Daily levothyroxine (SYNTHROID) 75 mcg, Oral, Daily before breakfast losartan (COZAAR) 100 mg, Oral, Daily omeprazole (PRILOSEC) 40 mg, Oral, Daily before breakfast, Do not crush or chew. ALLERGIES Allergies Allergen Reactions Demerol Hcl [Meperidine] Hives PROBLEMS Active Ambulatory Problems Diagnosis Date Noted Acquired valgus deformity of foot, left 09/03/2023 Arthritis of ankle, left 09/03/2023 Essential hypertension, benign (CMS/HCC) 09/03/2023 Bone cyst of left ankle 09/03/2023 Chronic gastritis 09/03/2023 Chronic left shoulder pain 09/03/2023 Chronic pain of left ankle 09/03/2023 DDD (degenerative disc disease), lumbar 09/03/2023 Equinus contracture of left ankle 09/03/2023 Generalized anxiety disorder (CMS/HCC) 09/03/2023 Generalized osteoarthrosis, involving multiple sites 09/03/2023 Adult hypothyroidism ([facility]) 09/03/2023 Posterior tibial tendon dysfunction, left 09/03/2023 Prediabetes 09/03/2023 Tear of deltoid ligament of ankle, sequela 09/03/2023 Acquired varus deformity of left foot 09/03/2023 Primary osteoarthritis of left hip 09/09/2023 Major depressive disorder, recurrent episode, moderate degree ([facility]) 09/24/2023 Class 3 severe obesity due to excess calories with serious comorbidity and body mass index (BMI) of 45.0 to 49.9 in adult 09/24/2023 Status post total hip replacement, left 10/18/2023 Bleeding hemorrhoids 06/21/2024 Encounter for long-term (current) use of medications 06/21/2024 Edema of both legs 07/01/2024 Globus sensation 09/05/2024 COPD (chronic obstructive pulmonary disease) ([facility]) 09/05/2024 Post-menopausal bleeding 01/10/2025 Resolved Ambulatory Problems Diagnosis Date Noted Chronic kidney disease, stage III (moderate) (HCC) ([facility]) 09/03/2023 Encounter for preoperative assessment 09/24/2023 Acute postoperative pain of left hip 10/18/2023 Past Medical History: Diagnosis Date 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, midfoot Atrial fibrillation ([facility]) Benign essential hypertension ([facility]) Chronic gastritis without bleeding CKD (chronic kidney disease), stage III (HCC) ([facility]) JIGNA (generalized anxiety disorder) ([facility]) Generalized osteoarthritis of multiple sites Hypertension ([facility]) Hypothyroidism, adult ([facility]) Insomnia, persistent Right elbow pain Thyroid dysfunction ([facility]) Varus foot deformity, acquired, left HISTORY PAST MEDICAL HISTORY SOCIAL HISTORY Past Medical History: Diagnosis Date 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 of ankle, left Arthritis, midfoot Atrial fibrillation ([facility]) Benign essential hypertension ([facility]) Bone cyst of left ankle Chronic gastritis without bleeding Chronic left shoulder pain Chronic pain of left ankle CKD (chronic kidney disease), stage III (HCC) ([facility]) DDD (degenerative disc disease), lumbar Equinus contracture of left ankle JIGNA (generalized anxiety disorder) ([facility]) Generalized osteoarthritis of multiple sites Hypertension ([facility]) Hypothyroidism, adult ([facility]) Insomnia, persistent Posterior tibial tendon dysfunction, left Prediabetes Right elbow pain Tear of deltoid ligament of ankle, sequela Thyroid dysfunction (CMS/HCC) Varus foot deformity, acquired, left Social History Tobacco Use Smoking status: Former Current packs/day: 0.00 Average packs/day: 1 pack/day for 30.0 years (30.0 ttl pk-yrs) Types: Cigarettes Start date: 1982 Quit date: 2012 Years since quittin.3 Smokeless tobacco: Not on file Substance Use Topics Alcohol use: Yes Alcohol/week: 12.0 - 16.0 standard drinks of alcohol Types: 12 - 16 Standard drinks or equivalent per week Drug use: Never FAMILY HISTORY Family History Problem Relation Name Age of Onset Arthritis Father SURGICAL HISTORY Past Surgical History: Procedure Laterality Date ANKLE ARTHROPLASTY BACK SURGERY DILATION AND CURETTAGE OF UTERUS 07/2023 IR ABLATION NERVE 2020 [facility]sp[facility] -Dr. Clay OOPHORECTOMY Right RI KNEE SCOPE,DIAGNOSTIC Right 1997 RI TOTAL ANKLE REPLACEMENT Left TOTAL HIP ARTHROPLASTY Right TOTAL HIP ARTHROPLASTY Left 10/15/2023 Dr Keen REVIEW OF SYSTEMS Review of Systems: Review of Systems Constitutional: Negative. HENT: Negative. Eyes: Negative. Respiratory: Negative. Cardiovascular: Negative. Gastrointestinal: Negative. Genitourinary: Positive for menstrual problem and vaginal bleeding. Musculoskeletal: Negative. Skin: Negative. Neurological: [...] nursing note reviewed. 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 Vitals: Estimated body mass index is 44.59 kg/m as calculated from the following: Height as of 01/04/25: 5' 1 . Weight as of 01/04/25: 236 lb. BP: No LMP recorded. Patient is postmenopausal. ASSESSMENT & PLAN ICD-10-CM 1. Post-menopausal bleeding N95.0 Pt presents as an ER follow up for PMB. Reviewed previous D&C hysteroscopy path with pt. Pt to be set up for D&C hysteroscopy with possible myosure and then a hysterectomy after. Pt to return for preop. Documented by Mairum Altamirano LPN on behalf of: Azeem Davidson DO documented in this encounter [facility] 01-04-2025 History of Present illness Narrative Associated Problem(s): Primary osteoarthritis of left hip Continued pain and problems walking. Refer to PT. Associated Problem(s): Major depressive disorder, recurrent episode, moderate degree (CMS/HCC) Occasional symptoms but tolerable without medication and monitor. Associated Problem(s): Generalized anxiety disorder (CMS/HCC) Occasional symptoms but tolerable without medication and monitor. Associated Problem(s): Essential hypertension, benign (CMS/HCC) BP elevated today but did not take medication. Monitoring at home and controlled. Continue to monitor PRN. Associated Problem(s): COPD (chronic obstructive pulmonary disease) (CMS/HCC) Symptoms stable and continue symbicort. Continue albuterol PRN. Images from the original note were not included. Subjective Patient ID: Og Badillo is a 59 y.o. female who presents for Follow-up (3m) and Gout (Left foot). Follow up HTN, depression, anxiety, COPD, GERD and OA hip. Patient stable today. Checking BP PRN and typically controlled. BP normal today. Taking medication daily and tolerating without side effects. Mood stable without medication. Not as down or sad and interacting with others. Anxiety stable. Not as stressed out or overwhelmed. Not as nervous or worry as much. Not as leach or irritable. Mild symptoms but overall tolerable without medication. COPD stable. Mild SOB with exertion and occasional cough. Using inhalers daily. OA hip unchanged. Patient had left hip replacement 10/15/23 then fractured replacement. Revision 11/08 and continued pain. Problems walking and hard to get up from sitting. Never went to PT. Review of Systems Respiratory: Negative for cough, [...] Assessment/Plan Problem List Items Addressed This Visit Arthritis of ankle, left Relevant Orders Uric acid Essential hypertension, benign (CMS/HCC) - Primary BP elevated today but did not take medication. Monitoring at home and controlled. Continue to monitor PRN. Generalized anxiety disorder (CMS/HCC) Occasional symptoms but tolerable without medication and monitor. Adult hypothyroidism (CMS/HCC) Relevant Orders TSH T4, free T3, free Primary osteoarthritis of left hip Continued pain and problems walking. Refer to PT. Relevant Orders Ambulatory referral to Physical Therapy Major depressive disorder, recurrent episode, moderate degree (CMS/HCC) Occasional symptoms but tolerable without medication and monitor. Status post total hip replacement, left Relevant Orders Ambulatory referral to Physical Therapy COPD (chronic obstructive pulmonary disease) (CMS/HCC) Symptoms stable and continue symbicort. Continue albuterol PRN. Other Visit Diagnoses Breast cancer screening by mammogram Relevant Orders Bilateral screening mammogram documented in this encounter [facility] 12-13-2024 Miscellaneous Notes MESSAGE LEFT FOR PT TO RETURN CALL TO RESCHEDULE APPT. SHE WILL ASK FOR ALISSON. I ALSO CALLED HER DAUGHTER CLAUDINE. HER MAIL BOX IS FULL. documented in this encounter [facility] 12-13-2024 Telephone encounter Note MESSAGE LEFT FOR PT TO RETURN CALL TO RESCHEDULE APPT. SHE WILL ASK FOR ALISSON. I ALSO CALLED HER DAUGHTER CLAUDINE. HER MAIL BOX IS FULL. [facility] 10-28-2024 Miscellaneous Notes EMPANELMENT OUTREACH Og Badillo has been contacted in effort to establish and/or re-establish care as a new patient with [facility]: Yes Outreach Date: October 28, 2024 Outreach Reason: Attribution Outreach Method: Telephone and Letter Outreach Attempt: First Attempt Outreach Outcome: Left Message and Letter Sent New Patient Appointment: NA Attributed Provider: Christy Tucker CNP Additional Comments: PCP is accepting new patients. Unable to reach patient by telephone. Letter sent regarding how to establish care. documented in this encounter [facility] 10-28-2024 Telephone encounter Note EMPANELMENT OUTREACH Og Ann Justino has been contacted in effort to establish and/or re-establish care as a new patient with [facility]: Yes Outreach Date: October 28, 2024 Outreach Reason: Attribution Outreach Method: Telephone and Letter Outreach Attempt: First Attempt Outreach Outcome: Left Message and Letter Sent New Patient Appointment: NA Attributed Provider: Christy Tucker CNP Additional Comments: PCP is accepting new patients. Unable to reach patient by telephone. Letter sent regarding how to establish care. [facility] 09-07-2024 History of Present illness Narrative Images from the original note were not included. Subjective Patient ID: Og Badillo is a 58 y.o. female who presents for Globus Sensation Pt she has had a chronic cough 5-6 months. Describes as a tickle in her throat. Pt has had cough bad enough that she passed out. In the past she had trouble with BP med causing similar trouble. This was discontinued. Pt has been prescribed omeprazole, but states she is not taking it. Scheduled for a GI procedure and anesthesia requests visualization of the TVC per Dr Hancock's note. Review of Systems All other systems reviewed and are negative. Family History Problem Relation Name Age of Onset Arthritis Father Active Ambulatory Problems Diagnosis Date Noted Acquired valgus deformity of foot, left 09/03/2023 Arthritis of ankle, left 09/03/2023 Essential hypertension, benign ([facility]) 09/03/2023 Bone cyst of left ankle 09/03/2023 Chronic gastritis 09/03/2023 Chronic left shoulder pain 09/03/2023 Chronic pain of left ankle 09/03/2023 DDD (degenerative disc disease), lumbar 09/03/2023 Equinus contracture of left ankle 09/03/2023 Generalized anxiety disorder (CMS/HCC) 09/03/2023 Generalized osteoarthrosis, involving multiple sites 09/03/2023 Adult hypothyroidism (CMS/HCC) 09/03/2023 Posterior tibial tendon dysfunction, left 09/03/2023 Prediabetes 09/03/2023 Tear of deltoid ligament of ankle, sequela 09/03/2023 Acquired varus deformity of left foot 09/03/2023 Primary osteoarthritis of left hip 09/09/2023 Major depressive disorder, recurrent episode, moderate degree ([facility]) 09/24/2023 Class 3 severe obesity due to excess calories with serious comorbidity and body mass index (BMI) of 45.0 to 49.9 in adult ([facility]) 09/24/2023 Status post total hip replacement, left 10/18/2023 Bleeding hemorrhoids 06/21/2024 Encounter for long-term (current) use of medications 06/21/2024 Edema of both legs 07/01/2024 Globus sensation 09/05/2024 COPD (chronic obstructive pulmonary disease) ([facility]) 09/05/2024 Resolved Ambulatory Problems Diagnosis Date Noted Chronic kidney disease, stage III (moderate) ([facility]) ([facility]) 09/03/2023 Encounter for preoperative assessment 09/24/2023 Acute postoperative pain of left hip 10/18/2023 Past Medical History: Diagnosis Date 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, midfoot Atrial fibrillation ([facility]) Benign essential hypertension ([facility]) Chronic gastritis without bleeding CKD (chronic kidney disease), stage III (HCC) ([facility]) JIGNA (generalized anxiety disorder) ([facility]) Generalized osteoarthritis of multiple sites Hypertension ([facility]) Hypothyroidism, adult ([facility]) Insomnia, persistent Right elbow pain Thyroid dysfunction ([facility]) Varus foot deformity, acquired, left Past Surgical History: Procedure Laterality Date ANKLE ARTHROPLASTY BACK SURGERY DILATION AND CURETTAGE OF UTERUS 07/2023 IR ABLATION NERVE 2020 Isp[facility] -Dr. Clay OOPHORECTOMY Right RI KNEE SCOPE,DIAGNOSTIC Right 1997 RI TOTAL ANKLE REPLACEMENT Left TOTAL HIP ARTHROPLASTY Right TOTAL HIP ARTHROPLASTY Left 10/15/2023 Dr Keen Allergies Allergen Reactions Demerol Hcl [Meperidine] Hives Current Outpatient Medications on File Prior to Visit Medication Sig Dispense Refill amLODIPine (Norvasc) 10 MG tablet Take 1 tablet (10 mg) by mouth Daily 30 tablet 5 budesonide-formoterol (Symbicort) 160-4.5 MCG/ACT inhaler Inhale 2 puffs in the morning and 2 puffs before bedtime. Rinse mouth with water after use to reduce aftertaste and incidence of candidiasis. Do not swallow.. 1 each 3 cyclobenzaprine (Flexeril) 10 MG tablet Take 1 tablet (10 mg) by mouth 3 (three) times a day as needed for muscle spasms 60 tablet 2 hydroCHLOROthiazide (HYDRODiuril) 25 MG tablet Take 1 tablet (25 mg) by mouth Daily 30 tablet 5 levothyroxine (Synthroid) 75 MCG tablet Take 1 tablet (75 mcg) by mouth in the morning. Take before meals. 30 tablet 3 losartan (Cozaar) 100 MG tablet Take 1 tablet (100 mg) by mouth Daily 30 tablet 5 omeprazole (PriLOSEC) [address] capsule Take 1 capsule (40 mg) by mouth in the morning. Take before meals. Do not crush or chew.. 30 capsule 3 [DISCONTINUED] busPIRone (Buspar) 5 MG tablet Take 1 tablet (5 mg) by mouth in the morning and 1 tablet (5 mg) before bedtime. 60 tablet 3 [DISCONTINUED] furosemide (Lasix) 40 MG tablet Take 1 tablet (40 mg) by mouth Daily as needed (Edema) 30 tablet 5 [DISCONTINUED] hydrOXYzine HCl (Atarax) 25 MG tablet Take 1 tablet (25 mg) by mouth 4 (four) times a day as needed for anxiety 60 tablet 2 [DISCONTINUED] PARoxetine (Paxil) 20 MG tablet Take 1 tablet (20 mg) by mouth Daily 30 tablet 5 [DISCONTINUED] phentermine (Adipex-P) 37.5 MG tablet Take 1 tablet (37.5 mg) by mouth in the morning. Take before meals. 30 tablet 0 No current facility-administered medications on file prior to visit. Objective Last Recorded Vitals Vitals: 09/07/24 0847 BP: 142/84 Pulse: 82 ENT Physical Exam Constitutional Appearance: patient appears well-developed, obesity noted, Head and Face Appearance: head appears normal and face appears atraumatic; Ear Ear comments: Oz ears normal Nose External Nose: nares patent bilaterally; external nose normal; Internal Nose: nasal mucosa normal; Oral Cavity/Oropharynx Lips: normal; Teeth: normal; Gums: gingiva normal; Tongue: normal; Oral mucosa: normal; Hard palate: normal; Neck Neck: neck normal; neck palpation normal; Thyroid: thyroid normal; Respiratory Inspection: breathing unlabored; normal breathing rate; Auscultation: breath sounds are clear; Cardiovascular Inspection: extremities are warm and well perfused; no peripheral edema present; Auscultation: regular rate and rhythm; Patient ID: Og Badillo is a 58 y.o. female. Procedures A diagnostic flexible fiberoptic laryngoscopy was performed. The flexible fiberoptic laryngoscope was placed into the nose and advanced to the level of the tip of the epiglottis. Examination of the larynx including both surfaces of the epiglottis false and true vocal folds, arytenoids and surrounding mucosal surfaces show no evidence of lesion, ulceration or mass. Normal bilateral true vocal fold motion is present. Bilateral piriform sinuses and base of tongue appear without lesion Assessment/Plan Diagnoses and all orders for this visit: LPRD (laryngopharyngeal reflux disease) Chronic coughing - Ambulatory referral to ENT Pt's cough appears likely due to LPRD. I will start an aggressive reflux regimen. It may take several weeks for significant improvement in cough to be noted. If there is no improvement recommend pulmonology evaluation. WRT pt upcoming anesthesia, the larynx is grossly normal, though intubation may be very difficult due to her body habitus and short neck. documented in this encounter [facility] 09-05-2024 History of Present illness Narrative Associated Problem(s): Class 3 severe obesity due to excess calories with serious comorbidity and body mass index (BMI) of 45.0 to 49.9 in adult ([facility]) Weight loss indicated. Associated Problem(s): Major depressive disorder, recurrent episode, moderate degree ([facility]) Feels like doing well without medication and monitor. Associated Problem(s): Globus sensation C/o tickle in throat but unclear etiology. Possibly related to reflux or COPD. Anesthesia requests direct visualization of vocal cords and refer to ENT. Associated Problem(s): DDD (degenerative disc disease), lumbar Worsening pain and start flexeril PRN. Associated Problem(s): COPD (chronic obstructive pulmonary disease) ([facility]) Symptoms worse and start symbicort. Continue albuterol PRN. Associated Problem(s): Chronic gastritis Increased symptoms and possibly causing the tickle in throat. Start omeprazole. Images from the original note were not included. Subjective Patient ID: Og Badillo is a 58 y.o. female who presents for Follow-up (Sciatica flair up/Referral to ENT). Multiple complaints today. Patient needs clearance for surgery. Over past few months started to c/o frequent tickle in throat. Feels like inside throat itchy on surface. Will have coughing spells and occasionally syncope. Feels like the irritation is in throat. Once start to cough feels like having spasms in throat. Anesthesia concerned of coughing during surgery and causing problems. They recommended direct visualization by ENT. Denies change in voice or hoarseness. History of COPD and reports symptoms worse over past few months. Doesn't feel like it's related to itch in throat. SOB with exertion and cough with sputum. C/o worsening reflux with epigastric pain and burning. Occasional emesis of acid. Not on medication for acid. C/o worsening back pain. Increased pain in low back and across top hips. Pain radiates into bilateral gluteal region and down legs. Pain worse with walking and standing. Frequent spasms in back and legs. Review of Systems Respiratory: Negative for cough, [...] Assessment/Plan Problem List Items Addressed This Visit Chronic gastritis Increased symptoms and possibly causing the tickle in throat. Start omeprazole. Relevant Medications omeprazole (PriLOSEC) [address] capsule DDD (degenerative disc disease), lumbar Worsening pain and start flexeril PRN. Relevant Medications cyclobenzaprine (Flexeril) 10 MG tablet Major depressive disorder, recurrent episode, moderate degree ([facility]) Feels like doing well without medication and monitor. Class 3 severe obesity due to excess calories with serious comorbidity and body mass index (BMI) of 45.0 to 49.9 in adult ([facility]) Weight loss indicated. Globus sensation - Primary C/o tickle in throat but unclear etiology. Possibly related to reflux or COPD. Anesthesia requests direct visualization of vocal cords and refer to ENT. Relevant Orders Ambulatory referral to ENT COPD (chronic obstructive pulmonary disease) ([facility]) Symptoms worse and start symbicort. Continue albuterol PRN. Relevant Medications budesonide-formoterol (Symbicort) 160-4.5 MCG/ACT inhaler documented in this encounter [facility] 08-02-2024 Miscellaneous Notes A clearance was sent over to ENT - Dr. Myrtle Frances (Tim) on 07/29/24. No response received. I called today 08/02/24 & spoke with Lisa - who stated that Dr. Frances doesn't think this is a ENT issue. The patient's surgery is Thursday08/09/24. I called the patient's PCP - Dr. Hancock and spoke with Leslye who said the patient was last seen on 06/21/24 and they don't have an office visit appointment for a clearance till August 2024. [facility]. I also called the patient to inform her. She is going to call Dr. Hancock's office to schedule an appointment and I'm going to fax over a clearance. The surgery schedule will be adjusted for the cancellation. documented in this encounter [facility] 08-02-2024 Telephone encounter Note A clearance was sent over to ENT - Dr. Myrtle Frances (Tim) on 07/29/24. No response received. I called today 08/02/24 & spoke with Lisa - who stated that Dr. Frances doesn't think this is a ENT issue. The patient's surgery is Thursday08/09/24. I called the patient's PCP - Dr. Hancock and spoke with Leslye who said the patient was last seen on 06/21/24 and they don't have an office visit appointment for a clearance till August 2024. [facility]. I also called the patient to inform her. She is going to call Dr. Hancock's office to schedule an appointment and I'm going to fax over a clearance. The surgery schedule will be adjusted for the cancellation. [facility] 07-29-2024 Instructions Nati Clark RN - 07/29/2024 8:15 AM EST Preoperative Education Checklist- General Surgery date: 08/09/24 Surgery time: 845a Arrival time: 645a 1. Bring a photo ID and your insurance card with you the day of surgery. You will check in at the main lobby of the [facility]- registration desk is straight ahead as soon as you walk in. Tell them you are here for surgery. 2. If you have a Living Will/Durable Power of [employer] for Health Care that is not on [...] after you have bathed. 5. NO nail mauritian/acrylic on at least one finger. If you are having a hand, wrist or foot surgery then all nail mauritian and artificial/acrylic nails must be removed from [...] please call the Preadmission Testing office at [phone], Mon.-Fri. 7 a.m.-3 p.m. Leave a voicemail if needed. Pre-Surgery Instructions: Medication Instructions albuterol (PROVENTIL HFA;VENTOLIN HFA) 90 mcg/actuation inhaler Take morning of procedure if needed amLODIPine (NORVASC) 10 mg tablet Take morning of procedure benzonatate (TESSALON PERLES) 100 mg capsule Take morning of procedure if needed busPIRone (BUSPAR) 5 mg tablet Stop taking 0 days prior to procedure furosemide (LASIX) 40 mg tablet Stop taking 0 days prior to procedure hydroCHLOROthiazide (HYDRODIURIL) 25 mg tablet Stop taking 0 days prior to procedure hydrOXYzine (ATARAX) 25 mg tablet Stop taking 0 days prior to procedure levothyroxine (SYNTHROID, LEVOTHROID) 75 MCG tablet Stop taking 0 days prior to procedure losartan (COZAAR) 50 mg tablet Take morning of procedure PARoxetine (PAXIL) 30 mg tablet Stop taking 0 days prior to procedure documented in this encounter [facility] [employer] [facility] 07-29-2024 Nurse Note Pt arrives in wheelchair, appears short of breath with conversation, coughing frequently. Pt states the increased shortness of breath is new within the last 2 months and she was seen in [facility] recently. Pt reports coughing at home and passing out . Dr. Cox in office to assess patient during PAT appt. ENT clearance recommended. Romi at Dr. Garcia' office notified. [facility] 07-29-2024 Miscellaneous Notes Pt arrives in wheelchair, appears short of breath with conversation, coughing frequently. Pt states the increased shortness of breath is new within the last 2 months and she was seen in [facility] recently. Pt reports coughing at home and passing out . Dr. Cox in office to assess patient during PAT appt. ENT clearance recommended. Romi at Dr. Garcia' office notified. documented in this encounter [facility] 07-20-2024 Miscellaneous Notes Og was called & scheduled for 08/09/24 @ 8:45 am with an arrival time of 6:45 am for a hemorrhoidectomy. PAT appt. is 07/27/24 @ 10:30 am. Anesthesia to be used general per Adia Iglesias NP. Hard copy was put in the mail. documented in this encounter [facility] 07-20-2024 Telephone encounter Note Og was called & scheduled for 08/09/24 @ 8:45 am with an arrival time of 6:45 am for a hemorrhoidectomy. PAT appt. is 07/27/24 @ 10:30 am. Anesthesia to be used general per Adia Iglesias NP. Hard copy was put in the mail. [facility] 07-20-2024 History of Present illness Narrative Images from the original note were not included. Chief Complaint: Hemorrhoids History of Present Illness Og Badillo is a 58 y.o. female who presents to the office for hemorrhoids. She has had them for years, however, they have been bleeding worse recently. She states she has bright red blood on the toilet paper and in the toilet bowl. She even has rectal bleeding if she does not have a bowel movement. She reports loose stools. She has been drinking an increased amount of beer, three 24 oz cans daily. She denies any abdominal pain or rectal pain. She denies constipation. She reports abdominal bloating. She admits to drinking very little water daily. She reports that she had a colonoscopy in January 2023 significant for diverticulosis, but was otherwise normal. Review of Systems Constitutional: Negative for fever and unexpected weight change. HENT: Negative for trouble swallowing. Respiratory: Negative for shortness of breath. Cardiovascular: Negative for chest pain. Gastrointestinal: Positive for diarrhea and blood in stool. Negative for nausea, vomiting, abdominal pain, constipation and black tarry stool. Hemorrhoids Genitourinary: Negative for dysuria and difficulty urinating. Musculoskeletal: Negative for gait problem. Skin: Negative for rash and wound. Neurological: Negative for dizziness, weakness and light-headedness. Hematological: Does not bruise/bleed easily. Psychiatric/Behavioral: Negative for confusion. Past Medical History: Diagnosis Date Arthritis Atrial fibrillation ([facility]) Hypertension Hypothyroidism OA (osteoarthritis) Obesity Visual impairment Past Surgical History: Procedure Laterality Date ANKLE ARTHROPLASTY Left APPLICATION WOUND VAC LOWER EXTREMITY Left 11/09/2023 Performed by Jalen Pierce MD at [facility] ARTHROSCOPY KNEE x 2 BACK SURGERY 2021 nerve cautery DILATION AND CURETTAGE OF UTERUS 07/2023 alexsandra JOINT REPLACEMENT Right hip- done in [place] LAPAROTOMY SALPINGO OOPHORECTOMY Left REPLACEMENT TOTAL JOINT HIP Left 10/15/2023 Performed by Wilfredo Keen DO at [facility] REVISION TOTAL JOINT HIP Left 11/09/2023 Performed by Jalen Pierce MD at [facility] Allergies Allergen Reactions Demerol [Meperidine] Hives Current Outpatient Medications: albuterol (PROVENTIL HFA;VENTOLIN HFA) 90 mcg/actuation inhaler, 1 puff every 4 (four) hours as needed., Disp: , Rfl: busPIRone (BUSPAR) 5 mg tablet, Take 1 tablet (5 mg total) by mouth in the morning and 1 tablet (5 mg total) before bedtime., Disp: , Rfl: furosemide (LASIX) 40 mg tablet, Take 1 tablet (40 mg total) by mouth as needed., Disp: , Rfl: hydroCHLOROthiazide (HYDRODIURIL) 25 mg tablet, Take 1 tablet (25 mg total) by mouth daily., Disp: , Rfl: levothyroxine (SYNTHROID, LEVOTHROID) 75 MCG tablet, Take 1 tablet (75 mcg total) by mouth in the morning., Disp: , Rfl: amLODIPine (NORVASC) 10 mg tablet, Take 1 tablet (10 mg total) by mouth in the morning. (Patient not taking: Reported on 01/21/2024), Disp: , Rfl: busPIRone (BUSPAR) 5 mg tablet, Take 1 tablet (5 mg total) by mouth in the morning. (Patient not taking: Reported on 11/24/2023), Disp: , Rfl: hydrOXYzine (ATARAX) 25 mg tablet, Take 2 tablets (50 mg total) by mouth in the morning. (Patient not taking: Reported on 07/20/2024), Disp: , Rfl: losartan (COZAAR) 50 mg tablet, Take 2 tablets (100 mg total) by mouth in the morning. (Patient not taking: Reported on 07/20/2024), Disp: , Rfl: mineral oil (FLEET) enema, Insert 133 mL into the rectum once for 1 dose., Disp: 133 mL, Rfl: 0 PARoxetine (PAXIL) 30 mg tablet, Take 1 tablet (30 mg total) by mouth every morning. (Patient not taking: Reported on 07/20/2024), Disp: , Rfl: Social History Socioeconomic History Marital status: Spouse name: Not on file Number of children: Not on file Years of education: Not on file Highest education level: Not on file Occupational History Not on file Tobacco Use Smoking status: Former Current packs/day: 0.00 Types: Cigarettes Quit date: 2012 Years since quittin.9 Smokeless tobacco: Never Vaping Use Vaping status: Some Days Substances: Flavoring Devices: Refillable tank Substance and Sexual Activity Alcohol use: Yes Alcohol/week: 14.0 standard drinks of alcohol Types: 14 Cans of beer per week Drug use: Never Sexual activity: Defer Other Topics Concern Not on file Social History Narrative Not on file Social Drivers of Health Financial Resource Strain: Not on file Food Insecurity: No Food Insecurity (01/21/2024) Hunger Screening Food Insecurity - Worry: Never True Food Insecurity - Inability: Never True Transportation Needs: No Transportation Needs (11/07/2023) PRAPARE - Transportation Lack of Transportation (Medical): No Lack of Transportation (Non-Medical): No Physical Activity: Not on file Stress: Not on file Social Connections: Not on file Interpersonal Safety: Not At Risk (11/07/2023) Humiliation, Afraid, Rape, and Kick questionnaire Fear of Current or Ex-Partner: No Emotionally Abused: No Physically Abused: No Sexually Abused: No Housing Instability: Low Risk (11/07/2023) Housing Instability Housing Instability: No Family History Problem Relation Age of Onset Kidney cancer Father Objective Physical Exam 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 Constitutional: General: She is not in acute distress. Appearance: Normal appearance. She is not ill-appearing. HENT: Head: Normocephalic and atraumatic. Mouth/Throat: Mouth: Mucous membranes are moist. Eyes: Pupils: Pupils are equal, round, and reactive to light. Cardiovascular: Rate and Rhythm: Normal rate. Pulmonary: Effort: Pulmonary effort is normal. No respiratory distress. Abdominal: General: There is no distension. Genitourinary: Rectum: Internal hemorrhoid present. No tenderness. Normal anal tone. Comments: External skin tags, no gross blood, large right posterior hemorrhoid visualized through anoscope Musculoskeletal: General: Normal range of motion. Skin: General: Skin is warm and dry. Neurological: Mental Status: She is alert and oriented to person, place, and time. Mental status is at baseline. Vital Signs: Height 154.9 cm (5' 0.98 ), weight 114.7 kg (252 lb 12.8 oz). Respiratory Source: No data recorded Admission Weight: Weight: 114.7 kg (252 lb 12.8 oz) Labs Lab Results Component Value Date WBC 6.7 06/30/2024 HGB 11.2 (L) 06/30/2024 HCT 34.1 (L) 06/30/2024 MCV 101 (H) 06/30/2024 PLT 296 06/30/2024 Lab Results Component Value Date GLU 136 (H) 06/30/2024 CALCIUM 8.4 (L) 06/30/2024 K 4.7 06/30/2024 CO2 23 06/30/2024 CL 101 06/30/2024 BUN 5 06/30/2024 CREATININE 0.71 06/30/2024 No results found for: AMYLASE No results found for: LIPASE Lab Results Component Value Date ALT 22 06/30/2024 AST 42 (H) 06/30/2024 No results found for: INR , PROTIME Assessment Og Badillo is a 58 y.o.female with bleeding internal hemorrhoids. Plan Hemorrhoidectomy with LigaSure device. Risks including pain, bleeding, infection, recurrence, anal stricture discussed. She understands recovery will be 6 weeks long and she will need to take stool softeners and Sitz baths postoperatively. Evaluation included: Preparing to see the patient (e.g., review of tests) Obtaining and/or reviewing separately obtained history Performing a medically appropriate examination and/or evaluation Counseling and educating the patient/family/caregiver Referring and communicating with other health childcare director Bleeding internal hemorrhoids [K64.8] ELI NINO [facility] [place] This note was created with the assistance of a speech recognition program. While intending to generate a timely document that accurately reflects the content of the visit, no guarantee can be provided that every grammatical or spelling mistake has been or will be identified or corrected. Thank you for your understanding. ELI Nino 07/20/24 1456 documented in this encounter [facility] 06-21-2024 History of Present illness Narrative Associated [...] hydroxyzine PRN. Associated Problem(s): Essential hypertension, benign ([facility]) BP severely elevated and resume medication. Need to monitor PRN. Associated Problem(s): Class 3 severe obesity due to excess calories with serious comorbidity and body mass index (BMI) of 45.0 to 49.9 in adult ([facility]) Patient overweight and difficult time losing weight. [...] note were not included. Subjective Patient ID: Og Badillo is a 58 y.o. female who [...] periprosthetic fracture of femoral component. Transferred to [place] and had revision 11/08. Continued pain and [...] panel Morbid obesity due to excess calories ([facility]) documented in this encounter [facility] 04-28-2024 History of Present illness Narrative CC: Status post left revision total hip. Subjective: HPI DOS: 11/09/2023, about 6 months out. Og Badillo is a 58 y.o. female who is here today for a follow-up visit. Patient last seen in the office on 01/21/2024; at this time, patient was instructed to continue current course. The patient was provided with an outpatient physical therapy script and instructed to focus on gait training, mobilization, and range of motion. Patient reports that overall she is doing okay; patient reports that she has been unable to start physical therapy secondary to insurance, further endorsing that she is working on obtaining Medicaid. Patient reports that she feels as though her pain is well controlled with OTC Tylenol. Patient reports that she cannot walk more than 50 feet with significant pain in the groin/hip- pt is currently ambulating with a wheeled walker with seat. Patient is weight-bearing as tolerated on the LLE. Patient is not currently utilizing any chemical DVT prophylaxis. Denies fever/chills/numbness/tingling. Past Medical, Surgical, and Family Histories: Were reviewed during this visit. Social History Occupational History Not on file Tobacco Use Smoking status: Former Current packs/day: 0.00 Types: Cigarettes Quit date: 2012 Years since quittin.6 Smokeless tobacco: Never Vaping Use Vaping status: Some Days Substances: Flavoring Devices: Refillable tank Substance and Sexual Activity Alcohol use: Yes Alcohol/week: 14.0 standard drinks of alcohol Types: 14 Cans of beer per week Drug use: Never Sexual activity: Defer Medications & Allergies: Were reviewed at during this visit. Objective: Physical Exam General: Well-developed well-nourished Mentation: Alert and oriented. Extremity Exam: Left Hip Inspection: Skin C/D/I. No evidenc of erythema, edema, ecchymosis or breaks in the skin. Palpation: Tender to palpation over trochanteric region of the left femur and the anterior hip. Non-tender to palpation over the lateral hip. ROM: Internal rotation 25 degrees. External rotation 30 degrees. No pain with log roll. Neurovascular Motor: intact EHL, FHL, DF, PF Sensation: intact to light touch sural, saphenous, deep peroneal, superficial peroneal 2+ DP IMAGING: I personally viewed X-ray images of left femur, which demonstrate reatined hardware without evidence of failure, interval healing and callous formation along fracture line. Will review and confirm findings with the radiologist report when available. Diagnosis: Periprosthetic fracture around internal prosthetic left hip joint, subsequent encounter S/P revision of total hip Plan: Continue WBAT on the LLE. Pt provided an updated handicap placard for the state [facility] on request. 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 Pt provided a packet of exercises to target the hip while she continues attempting to obtain state insurance; pt was informed that she would gain the greatest benefit from proceeding with ambulatory physical therapy as financially able. Continue pain management with OTC Tylenol. Continue supplementation with calcium and vitamin D. Patient is to follow-up in clinic in early 2024 for repeat evaluation. Concha Lozano PA-C ORTHOPAEDIC SURGERY ATTENDING NOTE I, Jalen Pierce MD, personally performed the face to face evaluation on this patient. I discussed with the patient and confirmed the accuracy and completeness of the aforementioned history prepared by the [facility] provider, and I personally performed the clinical examination of the patient. I discussed the treatment plan with the patient. THE PATIENT WALKS WITH DIFFICULTY AND WITH THE USE OF CRUTCHES. SHE IS UNTIL TO STAND FOR LONG PERIODS OF TIME. SAFELY LIFT ANYTHING, AND CANNOT WALK WITHOUT ASSISTIVE DEVICES. SHE IS NOT ABLE TO RETURN TO ANY PHYSICAL WORK AT THIS TIME AND THIS RESTRICTION WILL CONTINUE UNTIL SHE IS SEEN AGAIN IN ABOUT 6 MONTHS. THE PATIENT'S BMI IS OVER 41 AND SHE HAS OTHER PROSTHETIC JOINTS (RIGHT MODULAR TOTAL HIP, LEFT TOTAL ANKLE) AND WEIGHT LOSS IS RECOMMENDED. HER LEFT SHOULDER HAS SEVERE ARTHRITIC DISEASE AND IS ALSO CAUSING DISABLING PAIN AND HAS DIMINISHED FUNCTION. WITH ALL OF THE ABOVE PROBLEMS THE PATIENT IS GOING TO CONSIDER APPLYING FOR SOCIAL SECURITY DISABILITY, WHICH I WOULD SUPPORT. JALEN PIERCE MD documented in this encounter [facility] 01-23-2024 Note XR FEMUR LT 2+ VIEWS 2 VIEWS LEFT FEMUR HISTORY: Hardware evaluation COMPARISON: 11/09/2023 IMPRESSION: * Stable appearance of left hip arthroplasty with proximal cerclage wires and unchanged appearance of nondisplaced proximal femoral periprosthetic fracture. Finalized by Alexis Meade MD on 01/23/2024 7:27 AM [facility] 01-21-2024 History of Present illness Narrative CC: S/P revision of total hip. Subjective: HPI DOS: 11/09/2023 10 week(s) out Og Badillo is a 58 y.o. female who is here today for a follow-up visit. She reports some lingering hip pain described as stiffness. She is utilizing tylenol as needed for pain. She is WBAT LLE and is ambulating with the use of a walker. She completed home PT 1 month ago and has had issues with initiating outpt PT so has yet to begin outpt therapy. Denies fever/chills/numbness/tingling Past Medical, Surgical, and Family Histories: were reviewed during this visit. Social History Occupational History Not on file Tobacco Use Smoking status: Former Current packs/day: 0.00 Types: Cigarettes Quit date: 2012 Years since quittin.4 Smokeless tobacco: Never Vaping Use Vaping status: Some Days Substances: Flavoring Devices: Refillable tank Substance and Sexual Activity Alcohol use: Yes Alcohol/week: 14.0 standard drinks of alcohol Types: 14 Cans of beer per week Drug use: Never Sexual activity: Defer Medications & allergies: were reviewed at during this visit. Objective: Physical Exam General: Well-developed well-nourished Mentation: Alert and oriented. Extremity Exam: LEFT LOWER EXTREMITY: Inspection: No visible deformity of LE. Incision well healed, benign appearing. No erythema or drainage Motor: intact quadriceps, hamstring, intact extensor hallucis longus, tibialis anterior, gastrocsoleus complex function Sensory: intact to light touch: Deep Peroneal, Superficial Peroneal, Saphenous, Sural nerves CV/Vasc: 2+ palpable pulses @ DP, warm, pink, well-perfused foot & toes IMAGING: I personally viewed X-ray images of left femur, which demonstrate: Maintained fracture alignment with interval callus formation. Stable appearance left hip arthroplasty with no movement or hardware failure. I personally viewed X-ray images of right elbow, which demonstrate: Osteoarthritic changes present I personally viewed X-ray images of left elbow, which demonstrate: Osteoarthritic changes present the glenohumeral joint with mild osteophyte formation over the inferior head of the humerus Will review and confirm findings with the radiologist report when available. Diagnosis: S/P revision of total hip Osteoarthritis of left shoulder, unspecified osteoarthritis type Osteoarthritis of right elbow, unspecified osteoarthritis type Plan: WBAT LLE Provided Patient with outpatient physical therapy script for initiation of physical therapy for gait training, mobilization training, ROM and strengthning LLE Due to chronic left shoulder and right elbow pain complaints at her last office visit, Radiographs were completed of the left shoulder and right elbow at her visit today and the results were discussed with the patient. Discussed conservative measures for management of right elbow and left shoulder osteoarthritis. Pain control - Tylenol as needed Calcium/vitamin-D Ice/elevation as needed F/u in 3 months with left femur x-rays, may do telemedicine visit if desired ANA SHIN post op [facility] ATTENDING NOTE I, Jalen Pierce MD, personally performed the face to face evaluation on this patient. I discussed with the patient and confirmed the accuracy and completeness of the aforementioned history prepared by the [facility] practice provider, and I personally performed the clinical examination of the patient. I discussed the treatment plan with the patient. The patient's left hip incision is healed. She cannot walk without crutches. Her right elbow has crepitation and is painful. She has marked arthritic changes. Her left shoulder also has marked arthritic changes. This patient remains completely disabled from physical work at this time and should follow-up in three months for a clinical check and repeat radiographs of her left femur. JALEN PIERCE MD documented in this encounter [facility] 12-09-2023 Miscellaneous Notes EMPANELMENT OUTREACH Og Badillo has been contacted in effort to establish and/or re-establish care as a new patient with [facility]: Yes Outreach Date: December 09, 2023 Outreach Reason: Attribution Outreach Method: Telephone Outreach Attempt: First Attempt Outreach Outcome: Contacted Patient New Patient Appointment: Declined Attributed Provider: Christy Tucker CNP Additional Comments: PCP is accepting new patients. Patient states that she has a primary care provider and will update her insurance company. documented in this encounter [facility] 12-09-2023 Telephone encounter Note EMPANELMENT OUTREACH Og Badillo has been contacted in effort to establish and/or re-establish care as a new patient with [facility]: Yes Outreach Date: December 09, 2023 Outreach Reason: Attribution Outreach Method: Telephone Outreach Attempt: First Attempt Outreach Outcome: Contacted Patient New Patient Appointment: Declined Attributed Provider: Chrisyt Tucker CNP Additional Comments: PCP is accepting new patients. Patient states that she has a primary care provider and will update her insurance company. [facility] 12-09-2023 Miscellaneous Notes ADRIENNE Gastelum from [facility] called in stated that they are discharging patient from home health services that patient is doing well and driving. She would like patient to have an order for outpatient physical therapy placed. Patient would like to go to [facility] in [place], [place] phone: [phone] fax: [phone]. If any questions for ADRIENNE Gastelum she can be reached at [phone]. Spoke with patient to inform her outpatient physical therapy script will be faxed to [facility] physical therapy documented in this encounter [facility] 12-09-2023 Telephone encounter Note ADRIENNE Gastelum from [facility] called in stated that they are discharging patient from home health services that patient is doing well and driving. She would like patient to have an order for outpatient physical therapy placed. Patient would like to go to [facility] in [place], [place] phone: [phone] fax: [phone]. If any questions for ADRIENNE Gastelum she can be reached at [phone]. [facility] 12-09-2023 Telephone encounter Note Spoke with patient to inform her outpatient physical therapy script will be faxed to [facility] physical therapy [facility] 12-07-2023 Miscellaneous Notes Patient is calling to ask for a refill of percocet. She would like this sent to the [facility] in [place] on [address] (only pharmacy on file). Please call to discuss if refill cannot be processed - [phone]. Patient utilizing tylenol and percocet for pain control. She has been tapering down to percocet to twice daily. OARRS reviewed and appropriate. Discussed with patient this will be the last script we will refill for narcotics. Patient expressed understanding. Will also refill tylenol. She was provided a narcotic prescription and provided an education sheet regarding narcotic risks, benefits and addictive potential. An OARRS report was reviewed and was acceptable. In my clinical judgement, her requires >7 days of narcotic duration based on the injury and pain treatment needs. documented in this encounter [facility] 12-07-2023 Telephone encounter Note Patient is calling to ask for a refill of percocet. She would like this sent to the [facility] in [place] on [address] (only pharmacy on file). Please call to discuss if refill cannot be processed - [phone]. [facility] 12-07-2023 Telephone encounter Note Patient utilizing tylenol and percocet for pain control. She has been tapering down to percocet to twice daily. OARRS reviewed and appropriate. Discussed with patient this will be the last script we will refill for narcotics. Patient expressed understanding. Will also refill tylenol. She was provided a narcotic prescription and provided an education sheet regarding narcotic risks, benefits and addictive potential. An OARRS report was reviewed and was acceptable. In my clinical judgement, her requires >7 days of narcotic duration based on the injury and pain treatment needs. [employer] [facility] 11-24-2023 History of Present illness Narrative Images from the original note were not included. INTERVAL Hx: Og Badillo is a 58 y.o. female presents 11/24/2023 for follow-up of her Primary localized osteoarthritis of left hip S/P revision of total hip. She is 2 week(s) status post Left shani Stem total hip arthroplasty performed on 11/09/23 Patienthad a ALIN 10/15/23 and subsequent periprosthetic fracture 11/07/23 . Her pain is described as Sharp and is improved since our last visit. She is still taking oxycodone which is bringing her pain from an 8 to a 4. She is ambulating as needed with a wheelchair. She has been intermittently taking ASA 81mg BID, But was counseled on importance of compliance for DVT and PE risk. Pain improving. She has been primarily in wheelchair but WBAT. PMHx, PSHx, FamHx: were reviewed during this visit. Social History Occupational History Not on file Tobacco Use Smoking status: Former Types: Cigarettes Quit date: 2012 Years since quittin.2 Smokeless tobacco: Never Vaping Use Vaping Use: Some days Substances: Flavoring Devices: Refillable tank Substance and Sexual Activity Alcohol use: Yes Alcohol/week: 14.0 standard drinks of alcohol Types: 14 Cans of beer per week Drug use: Never Sexual activity: Defer MEDS & ALLERGIES: were reviewed at during this visit. ROS: Negative for Fever/Chills, Numbness/Tingling, Skin changes. Denies CP, SOB, Fevers, Chills, NVD. PHYSICAL EXAM: Vitals: Temp 36.7 C (98 F) Ht 154.9 cm (5' 0.98 ) Wt 99.8 kg (220 lb 0.3 oz) BMI 41.59 kg/m General: Well-nourished, Well-developed and Age appropriate LOC: awake and alert Orientation: oriented to person, place, time, and recent events, oriented to recent events, oriented to person, oriented to place, and oriented to time Psych: Pleasant and Cooperative Station: Seated in wheelchair Musculoskeletal: LEFT LOWER EXTREMITY: Inspection: Skin: intact, no open wounds or abrasions. no erythema. no ecchymosis, mild incision/wound drainage, hyperemic, and no blisters No visible deformity of LE. Nora removed. Motor: hip flexors 5/5, hip extensors 5/5, hip abductors 5/5, hip adductors intact extensor hallucis longus, tibialis anterior, gastrocsoleus complex function intact quadriceps, hamstring, intact extensor hallucis longus, tibialis anterior, gastrocsoleus complex function Sensory: intact to light touch: Deep Peroneal, Superficial Peroneal, Saphenous, Sural nerves intact to light touch: LFCN nerve CV/Vasc: 2+ palpable pulses @ DP, warm, pink, well-perfused foot & toes IMAGING: I personally viewed X-ray images of left femur and Long standing films, which demonstrate: mild genu varum. Intact shani implant. BL ALIN's L total ankle arthroplasty. No acute complications. Will review and confirm findings with the radiologist report when available. DIAGNOSIS: Primary localized osteoarthritis of left hip S/P revision of total hip PLAN: -WBAT -Percocet, multimodal pain control -PT at home, continue posterior hip precautions -Follow L skin if erythema worsens or any drainage, immediately go to Emergency department or call to be seen right away. Follow up in 4 week(s) with new radiographs of L femur, Left shoulder, R elbow. All questions were addressed. Patient was satisfied with plan of care. Suzette Nagy MD Orthopedic Surgery, PGY-3 Images from the original note were not included. Attending Attestation: I saw the patient. I performed the critical/velez portions of the service. I was directly involved in the management and treatment plan of the patient. I reviewed the resident's note. Additional Notes/Findings: The patient's left hip and thigh incision is intact. Multiple nora were removed. Media Information Document Information Photos/Images Incision 11/24/2023 13:04 Attached To: Office Visit on 11/24/23 with Jalen Pierce MD Source Information Suzette Nagy MD t [facility] This patient is walking with the use of a walker. She has multiple other lower extremity joint replacements including right total hip arthroplasty and a left ankle replacement. Follow-up in the office for a clinical check in 2 months. Earlier if any clinical issues. This patient remains disabled from physical work at this time. We also discussed the importance of weight loss and the need for continued follow-up of her modular right total hip. As she has chronic right elbow pain and left shoulder pain will xray these joints at the time of the next office visit. Jalen Pierce MD documented in this encounter [facility] 10-17-2023 Hospital course Narrative Summary: Status post left hip replacement Orthopaedic Discharge Summary Patient ID: Og Badillo [id number] 58 y.o. 1965 Admit date: 10/15/2023 Discharge date and time: October 17 Admitting Physician: Wilfredo Keen DO Discharge Physician: same Admission Diagnoses: [...] Closure: Deep and Superficial Layers Hospital Course:See [facility] inpatient notes for specifics Patient was admitted [...] redressed the wound after shower Follow-up with Wilfredo Keen DO in 10-14 days. Signed: Wilfredo Keen DO documented in this encounter [facility] 10-17-2023 Plan of care note Problem: Safety [...] at the bedside 7. Instruct patient/ patient outbound sales representative about use of safety devices 8. Include patient/ patient outbound sales representative in decisions related to safety Outcome: Progressing Note: Evaluation of progress towards goal: Safety measures initiated/maintained. Pt remains safe from harm/injury/falls Problem: Knowledge Deficit Goal: Patient/patient outbound sales representative demonstrates understanding of disease process, treatment plan, medications, and discharge instructions Description: INTERVENTIONS 1. Complete learning assessment and assess knowledge base 2. Provide teaching at level of understanding 3. Provide teaching via preferred learning method(s) Outcome: Progressing Note: Evaluation of progress towards goal: POC discussed with patient. Questions answered PRN. [employer] 10-17-2023 Miscellaneous Notes Problem: Safety Goal: Patient [...] at the bedside 7. Instruct patient/ patient outbound sales representative about use of safety devices 8. Include patient/ patient outbound sales representative in decisions related to safety Outcome: Progressing Note: Evaluation of progress towards goal: Safety measures initiated/maintained. Pt remains safe from harm/injury/falls Problem: Knowledge Deficit Goal: Patient/patient outbound sales representative demonstrates understanding of disease process, treatment [...] Date/Time User Outcome 10/17/23 0829 Ravinder Sandra, GEOTHERMAL HEAT PUMP MACHINIST Progressing 10/16/23 1320 Sabina Helms, PT Progressing 10/16/23 1126 Sabina Helms PT Not Progressing Goal note from Hospital Encounter 09/14/2023 by Ravinder Sandra GEOTHERMAL HEAT PUMP MACHINIST Evaluation of progress towards goal: Pt amb [...] Sandra PTA Progressing 10/16/23 1320 Sabina Helms, LEE Progressing 10/16/23 1126 Sabina Helms PT Progressing [...] at the bedside 7. Instruct patient/ patient outbound sales representative about use of safety devices 8. Include patient/ patient outbound sales representative in decisions related to safety Outcome: [...] hygiene technique 7. Identify and instruct patient/patient outbound sales representative in use of appropriate isolation precautions for identified infection/symptoms 8. Provide and discuss with patient/patient outbound sales representative on educational MDRO sheet 9. Encourage and monitor nutritional status daily and consult public affairs specialist if indicated 10. Implement neutropenic guidelines as needed 11. Review exposure to history of communicable disease and recent travel history on admission 12. Encourage annual influenza vaccine 13. Encourage pneumonia vaccine Outcome: Progressing Note: Evaluation of progress towards goal: No s/sx of infection Problem: Knowledge Deficit Goal: Patient/patient outbound sales representative demonstrates understanding of disease process, treatment [...] belt Weight Bearing Status: WBAT L LE Telemetry/Shuttler Car: Yes Other: S/P L ALIN Pain Assessment [...] Outcomes Date/Time User Outcome 10/16/23 1320 Sabina Helms PT Progressing 10/16/23 1126 Sabina Helms PT [...] belt Weight Bearing Status: WBAT L LE Telemetry/Shuttler Car: Yes Other: S/P L ALIN Pain Assessment [...] Disciplines: PT Outcomes Date/Time User Outcome 10/16/23 112David Helms PT Progressing Goal note from Hospital [...] None Scoring Daily Activity Raw Score: 18 [facility] G Code Modifier: CK Therapy Plan/HPI/occupational profile [...] alexsandra JOINT REPLACEMENT Right hip- done in [place] LAPAROTOMY SALPINGO OOPHORECTOMY Left Past Medical History: Diagnosis Date Arthritis Atrial fibrillation ([facility]) Hypertension Hypothyroidism OA (osteoarthritis) Obesity Visual impairment [...] belt Weight Bearing Status: WBAT L LE Telemetry/Shuttler Car: Yes Oxygen Used: room air Other: fall [...] Function Lives With: Daughter (14 year old miother, 20 daugther lives in town but not with patient) Receives Help From: Family Level of Mobility: Independent with ADLs and functional transfers or gait Homemaking Assistance: Independent 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 Encourage patient or legal outbound sales representative to report early pain and ask [...] per policy 9. Teach patient or legal outbound sales representative interventions for comforting Outcome: Progressing Note: [...] at the bedside 7. Instruct patient/ patient outbound sales representative about use of safety devices 8. Include patient/ patient outbound sales representative in decisions related to safety Outcome: [...] hygiene technique 7. Identify and instruct patient/patient outbound sales representative in use of appropriate isolation precautions for identified infection/symptoms 8. Provide and discuss with patient/patient outbound sales representative on educational MDRO sheet 9. Encourage and monitor nutritional status daily and consult public affairs specialist if indicated 10. Implement neutropenic guidelines as needed 11. Review exposure to history of communicable disease and recent travel history on admission 12. Encourage annual influenza vaccine 13. Encourage pneumonia vaccine Outcome: Progressing Note: Evaluation of progress towards goal: Problem: Knowledge Deficit Goal: Patient/patient outbound sales representative demonstrates understanding of disease process, treatment [...] Description: INTERVENTIONS: 1. Encourage patient or legal outbound sales representative to report early pain and ask [...] per policy 9. Teach patient or legal outbound sales representative interventions for comforting Outcome: Progressing Note: Evaluation of progress towards goal: Pt able to report pain according to 0/10 pain scale. Medicating patient for pain per orders. Images from the original note were not included. DISCHARGE PLANNING NOTE 10/15/23 4117 Discharge Disposition Discharge Disposition Home with Self Care County Information County of Residence [place] Patient Information Primary Caregiver Self Support System Immediate family (14 yr old dtr Yamilka & 20 year old daughter Claudine) Stressors Type of stressor (does not endorse) Income Information Income Information Employed ([employer]) Referral To Community Resources Denies needs Discharge Planning Living Arrangements Minor Child(fabrizio);Private Residence Support Systems Children Assistance Needed has walker Type of Residence Private residence Private Residence [address] [place] [address] Accessibility Steps into home Number of [...] depression or other mental health concerns. Negative [place] screen. Pt provides own transportation; oldest daughter will be able to assist at [place]. 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 Pt relayed her 14 yr old Yamilka will be available to assist & oldest daughter Claudine as well. Patient's preferred pharmacy is [facility]. PCP verified as Sam Hancock. Preadmission plan established with [facility] to provide in home therapy at DC, pt confirms DC plan. Pt has walker. [...] Post Discharge Therapy Recommendations: Home Physical Therapy Bottle Machine Operator Support for-: ADL Deficits, Mobility Deficits Past Medical History: Diagnosis Date Arthritis Atrial fibrillation ([facility]) Hypertension Hypothyroidism OA (osteoarthritis) Obesity Visual impairment Past Surgical History: Procedure Laterality Date ANKLE ARTHROPLASTY Left ARTHROSCOPY KNEE x 2 BACK SURGERY 2021 nerve cautery DILATION AND CURETTAGE OF UTERUS 07/2023 alexsandra JOINT REPLACEMENT Right hip- done in [place] LAPAROTOMY SALPINGO OOPHORECTOMY Left 6 Clicks: Basic [...] 6 Clicks: Basic Mobility Raw Score: 17 [facility] G Code Modifier: CK Therapy Plan Need [...] mobility ok pass, Ok to evaluate per RN Raisa Equipment: rolling walker, nonskid socks, IV, gait belt Weight Bearing Status: WBAT L LE Telemetry/Shuttler Car: Yes Oxygen Used: room air Other: S/P [...] of left hip Summary: Left hip replacement Og Badillo Date of : 1965 Date of Surgery: 10/15/2023 Preoperative diagnosis: Primary osteoarthritis left hip Postoperative diagnosis: Same Procedure: Left total hip arthroplasty Implants: [place] B 1 Fitmore stem with standard offset 44 mm cup with a 28 x 44 high wall liner 3.5/28 ceramic head Surgeon: Wilfredo Keen DO Anesthesia: Anesthesiologist: Agustín Cox DO DOCKING SAW OPERATOR: Suzette Pollock APRN-CARMEN Monitored Anesthesia Care, Spinal OR staff: Costume Draper Primary: Katrin Mcnair RN Costume Draper Relief: Lorna Pedraza RN Scrub Person: Jacquelyn Mcfarlane CST; ST Wendy Hart Assistant: Lan Kim Estimated blood loss: 300 mL Complications: None Findings: [id number] left hip small anatomy small femoral head [...] incredibly narrow and the broach was down [id number] with no room for play I did [...] surgery without complication documented in this encounter [employer] 10-17-2023 Progress note Formatting of t his [...] Date/Time User Outcome 10/17/23 0829 Ravinder Sandra, GEOTHERMAL HEAT PUMP MACHINIST Progressing 10/16/23 1320 Sabina Helms, PT Progressing [...] Date/Time User Outcome 10/17/23 0829 Ravinder Sandra, GEOTHERMAL HEAT PUMP MACHINIST Progressing 10/16/23 1320 Sabina Helms PT Progressing 10/16/23 1126 Sabina Helms PT [...] note and education documentation for this visit. [facility] [employer] 10-16-2023 Plan of care note Problem: Safety [...] at the bedside 7. Instruct patient/ patient outbound sales representative about use of safety devices 8. Include patient/ patient outbound sales representative in decisions related to safety Outcome: [...] hygiene technique 7. Identify and instruct patient/patient outbound sales representative in use of appropriate isolation precautions for identified infection/symptoms 8. Provide and discuss with patient/patient outbound sales representative on educational MDRO sheet 9. Encourage and monitor nutritional status daily and consult public affairs specialist if indicated 10. Implement neutropenic guidelines as needed 11. Review exposure to history of communicable disease and recent travel history on admission 12. Encourage annual influenza vaccine 13. Encourage pneumonia vaccine Outcome: Progressing Note: Evaluation of progress towards goal: No s/sx of infection Problem: Knowledge Deficit Goal: Patient/patient outbound sales representative demonstrates understanding of disease process, treatment plan, medications, and discharge instructions Description: INTERVENTIONS 1. Complete learning assessment and assess knowledge base 2. Provide teaching at level of understanding 3. Provide teaching via preferred learning method(s) Outcome: Progressing Note: Evaluation of progress towards goal: Education provided on meds and tx plan [facility] [employer] 10-16-2023 History of Present illness Narrative Orthopedic [...] 09/18/2023 Narrative: THIS EXAM WAS PERFORMED AT [facility] 09/18/2023 10:03 AM CLINICAL INDICATION: [...] 09/18/2023 11:43 AM documented in this encounter [employer] 10-16-2023 Progress note Formatting of t his [...] belt Weight Bearing Status: WBAT L LE Telemetry/Shuttler Car: Yes Other: S/P L ALIN Pain Assessment [...] Problem: Primary localized osteoarthritis of left hip [facility] [employer] 10-16-2023 Progress note Formatting of t his [...] belt Weight Bearing Status: WBAT L LE Telemetry/Shuttler Car: Yes Other: S/P L ALIN Pain Assessment [...] PT Outcomes Date/Time User Outcome 10/16/23 1126 Sabian Helms PT Not Progressing Goal note from Hospital Encounter 09/14/2023 by Saibna Helms PT Evaluation of progress towards goal: [...] Disciplines: PT Outcomes Date/Time User Outcome 10/16/23 Martell6 Sabina Helms PT Progressing Goal note from Hospital Encounter 09/14/2023 by Sabina Helms PT Evaluation of progress towards goal: CGA Physical Therapy Care Plan (Resolved) There are no resolved problems. 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 Complete learning assessment and assess knowledge base 2. Provide teaching at level of understanding 3. Provide teaching via preferred learning method(s) Outcome: Progressing Note: Evaluation of progress towards goal: pt educated on treatment plan, will continue to update pt prn. All questions answered at this time. [facility] [employer] 10-16-2023 Progress note Formatting of t his note might be different from the original. DISCHARGE PLANNING NOTE Follow-up Discharge Planning Progress Note Per RN during discharge transition rounds, barriers to discharge are: None Discharge Plan: DC to home with [facility]. Care Navigation will continue to follow for any discharge needs [facility] [employer] [facility] 10-15-2023 Plan of care note Problem: Pain Goal: Patient goal is pain score less than 4, able to rest, and participant in treatment plan as appropriate Description: INTERVENTIONS: 1. Encourage patient or legal outbound sales representative to report early pain and ask [...] per policy 9. Teach patient or legal outbound sales representative interventions for comforting Outcome: Progressing Note: [...] at the bedside 7. Instruct patient/ patient outbound sales representative about use of safety devices 8. Include patient/ patient outbound sales representative in decisions related to safety Outcome: [...] hygiene technique 7. Identify and instruct patient/patient outbound sales representative in use of appropriate isolation precautions for identified infection/symptoms 8. Provide and discuss with patient/patient outbound sales representative on educational MDRO sheet 9. Encourage and monitor nutritional status daily and consult public affairs specialist if indicated 10. Implement neutropenic guidelines as needed 11. Review exposure to history of communicable disease and recent travel history on admission 12. Encourage annual influenza vaccine 13. Encourage pneumonia vaccine Outcome: Progressing Note: Evaluation of progress towards goal: Problem: Knowledge Deficit Goal: Patient/patient outbound sales representative demonstrates understanding of disease process, treatment [...] together with patient to achieve discharge goals. [facility] 10-15-2023 Plan of care note Problem: Pain Goal: Patient goal is pain score less than 4, able to rest, and participant in treatment plan as appropriate Description: INTERVENTIONS: 1. Encourage patient or legal outbound sales representative to report early pain and ask [...] per policy 9. Teach patient or legal outbound sales representative interventions for comforting Outcome: Progressing Note: Evaluation of progress towards goal: Pt able to report pain according to 0/10 pain scale. Medicating patient for pain per orders. [facility] 10-15-2023 Progress note Formatting of t his note is different from the original. Images from the original note were not included. DISCHARGE PLANNING NOTE 10/15/23 7637 Discharge Disposition Discharge Disposition Home with Self Care County Information [facility] [place] [facility] [place] Patient Information Primary Caregiver Self Support System Immediate family (14 yr old dtr Yamilka & 20 year old daughter Claudine) Stressors Type of stressor (does not endorse) Income Information Income Information Employed ([employer]) Referral To Community Resources Denies needs Discharge Planning Living Arrangements Minor Child(fabrizio);Private Residence Support Systems Children Assistance Needed has walker Type of Residence Private residence Private Residence [address] [place] [address] Accessibility Steps into home Number of [...] depression or other mental health concerns. Negative [place] screen. Pt provides own transportation; oldest daughter will be able to assist at [place]. 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 Pt relayed her 14 yr old Yamilka will be available to assist & oldest daughter Claudine as well. Patient's preferred pharmacy is [facility]. PCP verified as Sam Hancock. Preadmission plan established with [facility] to provide in home therapy at [place], pt confirms DC plan. Pt has walker. [...] Care Navigation following for safe care transition. [facility] 10-15-2023 Progress note Formatting of t his note is different from the original. Physical Therapy Evaluation Discharge Recommendations PT Recommendations: Home Home Recommendations: Intermittent caregiver support for: Post Discharge Therapy Recommendations: Home Physical Therapy Bottle Machine Operator Support for-: ADL Deficits, Mobility Deficits Past Medical History: Diagnosis Date Arthritis Atrial fibrillation (CMS-HCC) Hypertension Hypothyroidism OA (osteoarthritis) Obesity Visual impairment Past Surgical History: Procedure Laterality Date ANKLE ARTHROPLASTY Left ARTHROSCOPY KNEE x 2 BACK SURGERY 2021 nerve cautery DILATION AND CURETTAGE OF UTERUS 07/2023 alexsandra JOINT REPLACEMENT Right hip- done in [place] LAPAROTOMY SALPINGO OOPHORECTOMY Left 6 Clicks: Basic [...] belt Weight Bearing Status: WBAT L LE Telemetry/Shuttler Car: Yes Oxygen Used: room air Other: S/P [...] Problem: Primary localized osteoarthritis of left hip [facility] [employer] 10-15-2023 Procedure note Summary: Left hip replacement Og Badillo Date of : 1965 Date of Surgery: 10/15/2023 Preoperative diagnosis: Primary osteoarthritis left hip Postoperative diagnosis: Same Procedure: Left total hip arthroplasty Implants: [place] B 1 Fitmore stem with standard offset 44 mm cup with a 28 x 44 high wall liner 3.5/28 ceramic head Surgeon: Wilfredo Keen DO Anesthesia: Anesthesiologist: Agustín Cox DO DOCKING SAW OPERATOR: Suzette Pollock APRN-CARMEN Monitored Anesthesia Care, Spinal OR staff: Costume Draper Primary: Katrin Mcnair RN Costume Draper Relief: Lorna Pedraza RN Scrub Person: Jacquelyn Mcfarlane CST; ST Wendy Hart Assistant: Lan Kim Estimated blood loss: 300 mL Complications: None Findings: [id number] left hip small anatomy small femoral head [...] incredibly narrow and the broach was down [id number] with no room for play I did [...] The [facility] the [facility] Attending History and physical note HISTORY AND PHYSICAL INTERVAL NOTE: Og Badillo 1965 [id number] H&P reviewed. The patient was examined and there are no changes to the H&P. Wilfredo Keen DO Source Note - Wilfredo Keen DO - 10/09/2023 1:35 PM EST [facility] [employer] [facility] 10-15-2023 History and physical note HISTORY AND PHYSICAL INTERVAL NOTE: Og Badillo 1965 [id number] H&P reviewed. The patient was examined and there are no changes to the H&P. Wilfredo Keen DO Source Note - Wilfredo Keen DO - 10/09/2023 1:35 PM EST documented in this encounter [facility] [employer] [facility] 09-18-2023 Instructions Nati Clark RN - 09/18/2023 [...] in at the main lobby of the [facility]- registration desk is straight ahead as soon as you walk in. Tell them you are here for surgery. 2. If you have a Living Will/Durable Power of [employer] Technical Manager for Health Care that is not on [...] after you have bathed. 5. NO nail mauritian/acrylic on at least one finger. If you are having a hand, wrist or foot surgery then all nail mauritian and artificial/acrylic nails must be removed from [...] please call the Preadmission Testing office at [phone], Mon.-Fri. 7 a.m.-3 p.m. Leave a voicemail [...] with your doctor. documented in this encounter [facility] [employer] [facility] 01-16-2022 Note CONSULTATION CONSULTATION DATE: 01/16/2022 [...] medications include baclofen 10 mg q.h.s., BuSpar, Ceres 7.5/325 q.h.s., Paxil and trazodone. She does [...] today as well. We will maintain her Ceres 7.5/325 daily only. Bilateral medial branch blocks with subsequent rhizotomy were suggested to the patient, but due to cost, she defers at this time. We will continue to medically manage her. We will see her in three months' time unless otherwise indicated. [facility] Signed and Approved by: FILIPPO CHOWDARY . 01/23/2022 16:01:00 [facility] 10-17-2021 Note CONSULTATION PAIN MANAGEMENT CONSULTATION This is a 56-year-old female who returns to the clinic for a 2-month follow-up for chronic left shoulder and right elbow pain. She was last seen on 07/25/2021 which at that time her Ceres was increased to 7.5/325 q. day. She [...] 800 mg b.i.d., Baclofen 10 mg q.h.s., Ceres 7.5/325 q. day in addition to Paxil, Trazadone and Buspar. The patient states she does drink every night and gets her buzz on . The patient is requiring about an increase in her Ceres today as she feels she needs better pain relief to work her job. 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 REVIEW OF SYSTEMS, PAST MEDICAL HISTORY, [...] shoulder osteoarthritis, right elbow bursitis. PLAN: Her Ceres will not be increased. A refill for Ceres 7.5/325 sent today. The patient was encouraged to continue her ibuprofen as well as her Voltaren gel. Will continue to follow her in three months' time unless otherwise indicated. She was encouraged to follow-up with Dr. Carrion when she is financially comfortable to do so. The patient understanding and all questions were answered. [facility] Signed and Approved by: FILIPPO CHOWDARY . 10/30/2021 08:25:00 [facility] 07-25-2021 Note PAIN MANAGEMENT DATE: 07-25-21 [...] Current medications include Baclofen 10 mg q.h.s, Ceres 5/325 q. day which the patient states [...] is requesting a possible increase in her Ceres. I will increase her to 7.5/325 q.d., only if she to supplement that with [id number] ibuprofen or Aleve. At this time we will follow with the patient in the clinic in three months' time unless otherwise indicated. The patient agrees to the plan of care and all questions were answered today. [facility] Signed and Approved by: FILIPPO CHOWDARY . 08/01/2021 16:09:[address] [facility] 04-25-2021 Note PAIN MANAGEMENT Consultation Date: 04-25-21 [...] 4. We will maintain the patient on Ceres and refill today 5/325 mg daily. 5. [...] office in three months unless otherwise indicated. [facility] Signed and Approved by: FILIPPO CHOWDARY . 05/01/2021 07:55:[address] [facility] 02-04-2021 Note PAIN MANAGEMENT CONS ULTATION [...] time, lying down, Advil, Baclofen injection therapy, Ceres and Trazodone. On January 22 the patient [...] MEDICATIONS: Baclofen 10 mg one p.o., q.h.s., Ceres 5/325 one p.o. daily p.r.n. Paxil daily, [...] today in the office. A refill of Ceres 5/327 one p.o. daily p.r.n. pain was prescribed today and given to the patient via paper prescription for both Baclofen and Ceres. The patient has been advised of the [...] are completed to re-evaluate her pain. . [facility] Signed and Approved by: NIKKI BAILEY 02/11/2021 07:21:[address] [facility] Evaluation note Diagnosis Essential hypertension, benign (CMS/HCC)- Primary Essential hypertension, benign documented in this encounter [facility]* Diagnosis Encounter for preoperative assessment- [...] excess calories (CMS/HCC) documented in this encounter [facility]* Diagnosis Encounter for preoperative assessment- [...] Primary Unspecified hypothyroidism documented in this encounter [facility]* Diagnosis Encounter for preoperative assessment- [...] (BMI) of 45.0 to 49.9 in adult ([facility]) Prediabetes Other abnormal glucose Primary hypothyroidism ([facility]/HCC) Unspecified hypothyroidism Encounter for long-term (current) use of medications Encounter for long-term (current) use of other medications Dyslipidemia (CMS/HCC) Other and unspecified hyperlipidemia Morbid obesity due to excess calories (CMS/HCC) Edema of both legs- Primary Edema documented in this encounter [facility]* Diagnosis Encounter for preoperative assessment- Primary Primary osteoarthritis of left hip Essential hypertension, benign (CMS/HCC) Essential hypertension, benign MDD (major depressive disorder), recurrent episode, mild (HCC) (CMS/HCC) Generalized anxiety disorder ([facility]) Generalized anxiety disorder Morbid obesity due to [...] (BMI) of 45.0 to 49.9 in adult ([facility]/HCC) Prediabetes Other abnormal glucose Primary hypothyroidism (CMS/HCC) Unspecified hypothyroidism Encounter for long-term (current) use of medications Encounter for long-term (current) use of other medications Dyslipidemia (CMS/HCC) Other and unspecified hyperlipidemia Morbid obesity due to excess calories (CMS/HCC) Globus sensation- Primary Gastrointestinal malfunction arising from mental factors Chronic superficial gastritis without bleeding Degeneration of intervertebral disc of lumbar region with discogenic back pain and lower extremity pain Chronic obstructive pulmonary disease, unspecified COPD type ([facility]) Major depressive disorder, recurrent episode, moderate degree ([facility]) Major depressive disorder, recurrent episode, moderate Class 3 severe obesity due to excess calories with serious comorbidity and body mass index (BMI) of 45.0 to 49.9 in adult ([facility]) documented in this encounter [facility]* Diagnosis Encounter for preoperative assessment- Primary Primary osteoarthritis of left hip Essential hypertension, benign ([facility]) Essential hypertension, benign MDD (major depressive disorder), recurrent episode, mild (HCC) ([facility]) Generalized anxiety disorder ([facility]) Generalized anxiety disorder Morbid obesity due to excess calories ([facility]) Essential hypertension, benign ([facility])- Primary Essential hypertension, benign Major depressive disorder, recurrent episode, moderate degree ([facility]) Major depressive disorder, recurrent episode, moderate Generalized anxiety disorder ([facility]) Generalized anxiety disorder Primary osteoarthritis of left hip Bleeding hemorrhoids Unspecified hemorrhoids with other complication Class 3 severe obesity due to excess calories with serious comorbidity and body mass index (BMI) of 45.0 to 49.9 in adult ([facility]) Prediabetes Other abnormal glucose Primary hypothyroidism ([facility]) Unspecified hypothyroidism Encounter for long-term (current) use of medications Encounter for long-term (current) use of other medications Dyslipidemia ([facility]) Other and unspecified hyperlipidemia Morbid obesity due to excess calories ([facility]) Globus sensation- Primary Gastrointestinal malfunction arising from mental factors Chronic superficial gastritis without bleeding Degeneration of intervertebral disc of lumbar region with discogenic back pain and lower extremity pain Chronic obstructive pulmonary disease, unspecified COPD type ([facility]) Major depressive disorder, recurrent episode, moderate degree ([facility]) Major depressive disorder, recurrent episode, moderate Class 3 severe obesity due to excess calories with serious comorbidity and body mass index (BMI) of 45.0 to 49.9 in adult ([facility]) LPRD (laryngopharyngeal reflux disease)- Primary Acute laryngitis, without mention of obstruction Chronic coughing Cough documented in this encounter [facility]* Diagnosis Preop examination- Primary Unspecified pre-operative examination Hypertension, unspecified type Atrial fibrillation, unspecified type ([facility]) BMI 40.0-44.9, adult [place] Preop examination Unspecified pre-operative examination Hypertension, unspecified type Atrial fibrillation, unspecified type ([facility]) BMI 40.0-44.9, adult ([facility]) documented [facility]* Diagnosis S/P revision of total hip- Primary Osteoarthritis of left shoulder, unspecified osteoarthritis type Osteoarthritis of right elbow, unspecified osteoarthritis type Morbid obesity with BMI of 40.0-44.9, adult ([facility]) Right elbow pain Pain in joint, upper arm Chronic left shoulder pain Pain in joint, shoulder region documented in this encounter [facility]* Diagnosis Primary localized osteoarthritis of left hip- Primary Primary localized osteoarthritis of left hip documented in this encounter [facility]* Diagnosis Right elbow pain- Primary Pain in joint, upper arm S/P revision of total hip Morbid obesity with BMI of 40.0-44.9, adult ([facility] Chronic left shoulder pain Pain in joint, shoulder region documented in this encounter [facility]* Diagnosis Periprosthetic fracture around internal prosthetic left hip joint, subsequent encounter- Primary documented in this encounter [facility]* Diagnosis Periprosthetic fracture around internal prosthetic left hip joint, subsequent encounter- Primary S/P revision of total hip Morbid obesity with BMI of 40.0-44.9, adult ([facility] documented [facility] encounter [facility]* Diagnosis Bleeding internal hemorrhoids- Primary Internal hemorrhoids with other complication documented [facility] encounter [facility]* Diagnosis Encounter for preoperative assessment- Primary Primary osteoarthritis of left hip Essential hypertension, benign ([facility]) Essential hypertension, benign MDD (major depressive disorder), recurrent episode, mild (HCC) ([facility]) Generalized anxiety disorder ([facility]) Generalized anxiety disorder Morbid obesity due to excess calories ([facility]) Essential hypertension, benign ([facility]/HCC)- Primary Essential hypertension, benign Major depressive disorder, recurrent episode, moderate degree ([facility]) Major depressive disorder, recurrent episode, moderate Generalized anxiety disorder ([facility]) Generalized anxiety disorder Primary osteoarthritis of left hip Bleeding hemorrhoids Unspecified hemorrhoids with other complication Class 3 severe obesity due to excess calories with serious comorbidity and body mass index (BMI) of 45.0 to 49.9 in adult Prediabetes Other abnormal glucose Primary hypothyroidism (CMS/HCC) Unspecified hypothyroidism Encounter for long-term (current) use of medications Encounter for long-term (current) use of other medications Dyslipidemia (CMS/HCC) Other and unspecified hyperlipidemia Morbid obesity due to excess calories (CMS/HCC) Globus sensation- Primary Gastrointestinal malfunction arising from mental factors Chronic superficial gastritis without bleeding Degeneration of intervertebral disc of lumbar region with discogenic back pain and lower extremity pain Chronic obstructive pulmonary disease, unspecified COPD type (CMS/HCC) Major depressive disorder, recurrent episode, moderate degree (CMS/HCC) Major depressive disorder, recurrent episode, moderate Class 3 severe obesity due to excess calories with serious comorbidity and body mass index (BMI) of 45.0 to 49.9 in adult LPRD (laryngopharyngeal reflux disease) Acute laryngitis, without mention of obstruction documented in this encounter [facility] HealthcareEvaluation note* Diagnosis Encounter for preoperative [...] (BMI) of 45.0 to 49.9 in adult Prediabetes Other abnormal glucose Primary hypothyroidism (CMS/HCC) Unspecified hypothyroidism Encounter for long-term (current) use of medications Encounter for long-term (current) use of other medications Dyslipidemia (CMS/HCC) Other and unspecified hyperlipidemia Morbid obesity due to excess calories (CMS/HCC) Globus sensation- Primary Gastrointestinal malfunction arising from mental factors Chronic superficial gastritis without bleeding Degeneration of intervertebral disc of lumbar region with discogenic back pain and lower extremity pain Chronic obstructive pulmonary disease, unspecified COPD type (CMS/HCC) Major depressive disorder, recurrent episode, moderate degree (CMS/HCC) Major depressive disorder, recurrent episode, moderate Class 3 severe obesity due to excess calories with serious comorbidity and body mass index (BMI) of 45.0 to 49.9 in adult Essential hypertension, benign (CMS/HCC)- Primary Essential hypertension, benign Major depressive disorder, recurrent episode, moderate degree (CMS/HCC) Major depressive disorder, recurrent episode, moderate Generalized anxiety disorder (CMS/HCC) Generalized anxiety disorder Chronic obstructive pulmonary disease, unspecified COPD type (CMS/HCC) Adult hypothyroidism (CMS/HCC) Unspecified hypothyroidism Breast cancer screening by mammogram Arthritis of ankle, left Primary osteoarthritis of left hip Status post total hip replacement, left documented in this encounter [facility]Evaluation note* Diagnosis Encounter for preoperative [...] (BMI) of 45.0 to 49.9 in adult Prediabetes Other abnormal glucose Primary hypothyroidism (CMS/HCC) Unspecified hypothyroidism Encounter for long-term (current) use of medications Encounter for long-term (current) use of other medications Dyslipidemia (CMS/HCC) Other and unspecified hyperlipidemia Morbid obesity due to excess calories (CMS/HCC) Globus sensation- Primary Gastrointestinal malfunction arising from mental factors Chronic superficial gastritis without bleeding Degeneration of intervertebral disc of lumbar region with discogenic back pain and lower extremity pain Chronic obstructive pulmonary disease, unspecified COPD type (CMS/HCC) Major depressive disorder, recurrent episode, moderate degree (CMS/HCC) Major depressive disorder, recurrent episode, moderate Class 3 severe obesity due to excess calories with serious comorbidity and body mass index (BMI) of 45.0 to 49.9 in adult Essential hypertension, benign (CMS/HCC)- Primary Essential hypertension, benign Major depressive disorder, recurrent episode, moderate degree (CMS/HCC) Major depressive disorder, recurrent episode, moderate Generalized anxiety disorder (CMS/HCC) Generalized anxiety disorder Chronic obstructive pulmonary disease, unspecified COPD type (CMS/HCC) Adult hypothyroidism (CMS/HCC) Unspecified hypothyroidism Breast cancer screening by mammogram Arthritis of ankle, left Primary osteoarthritis of left hip Status post total hip replacement, left Post-menopausal bleeding Postmenopausal bleeding documented in this encounter [facility] HealthcareEvaluation note* Diagnosis Encounter for preoperative assessment- [...] (BMI) of 45.0 to 49.9 in adult Prediabetes Other abnormal glucose Primary hypothyroidism (CMS/HCC) Unspecified hypothyroidism Encounter for long-term (current) use of medications Encounter for long-term (current) use of other medications Dyslipidemia (CMS/HCC) Other and unspecified hyperlipidemia Morbid obesity due to excess calories (CMS/HCC) Globus sensation- Primary Gastrointestinal malfunction arising from mental factors Chronic superficial gastritis without bleeding Degeneration of intervertebral disc of lumbar region with discogenic back pain and lower extremity pain Chronic obstructive pulmonary disease, unspecified COPD type (CMS/HCC) Major depressive disorder, recurrent episode, moderate degree (CMS/HCC) Major depressive disorder, recurrent episode, moderate Class 3 severe obesity due to excess calories with serious comorbidity and body mass index (BMI) of 45.0 to 49.9 in adult Essential hypertension, benign (CMS/HCC)- Primary Essential hypertension, benign Major depressive disorder, recurrent episode, moderate degree (CMS/HCC) Major depressive disorder, recurrent episode, moderate Generalized anxiety disorder (CMS/HCC) Generalized anxiety disorder Chronic obstructive pulmonary disease, unspecified COPD type (CMS/HCC) Adult hypothyroidism (CMS/HCC) Unspecified hypothyroidism Breast cancer screening by mammogram Arthritis of ankle, left Primary osteoarthritis of left hip Status post total hip replacement, left General weakness- Primary Other malaise and fatigue Impaired functional mobility, balance, gait, and endurance History of 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 joint documented in this encounter [facility] HealthcareEvaluation note* Diagnosis Encounter for preoperative assessment- [...] (BMI) of 45.0 to 49.9 in adult Prediabetes Other abnormal glucose Primary hypothyroidism (CMS/HCC) Unspecified hypothyroidism Encounter for long-term (current) use of medications Encounter for long-term (current) use of other medications Dyslipidemia (CMS/HCC) Other and unspecified hyperlipidemia Morbid obesity due to excess calories (CMS/HCC) Globus sensation- Primary Gastrointestinal malfunction arising from mental factors Chronic superficial gastritis without bleeding Degeneration of intervertebral disc of lumbar region with discogenic back pain and lower extremity pain Chronic obstructive pulmonary disease, unspecified COPD type (CMS/HCC) Major depressive disorder, recurrent episode, moderate degree (CMS/HCC) Major depressive disorder, recurrent episode, moderate Class 3 severe obesity due to excess calories with serious comorbidity and body mass index (BMI) of 45.0 to 49.9 in adult Essential hypertension, benign (CMS/HCC)- Primary Essential hypertension, benign Major depressive disorder, recurrent episode, moderate degree (CMS/HCC) Major depressive disorder, recurrent episode, moderate Generalized anxiety disorder (CMS/HCC) Generalized anxiety disorder Chronic obstructive pulmonary disease, unspecified COPD type (CMS/HCC) Adult hypothyroidism (CMS/HCC) Unspecified hypothyroidism Breast cancer screening by mammogram Arthritis of ankle, left Primary osteoarthritis of left hip Status post total hip replacement, left Primary osteoarthritis of left hip Status post total hip replacement, left documented in this encounter [facility]* Diagnosis Encounter for preoperative assessment- Primary Primary osteoarthritis of left hip Essential hypertension, benign Essential hypertension, benign MDD (major depressive disorder), recurrent episode, mild Generalized anxiety disorder Generalized anxiety disorder Morbid obesity due to excess calories (CMS-HCC) Essential hypertension, benign- Primary Essential hypertension, benign Major depressive disorder, recurrent episode, moderate degree (HCC) Major depressive disorder, recurrent episode, moderate Generalized anxiety disorder Generalized anxiety disorder Primary osteoarthritis of left hip Bleeding hemorrhoids Unspecified hemorrhoids with other complication Class 3 severe obesity due to excess calories with serious comorbidity and body mass index (BMI) of 45.0 to 49.9 in adult [place] Prediabetes Other abnormal glucose Primary hypothyroidism Unspecified hypothyroidism Encounter for long-term (current) use of medications Encounter for long-term (current) use of other medications Dyslipidemia Other and unspecified hyperlipidemia Morbid obesity due to excess calories [place] Globus sensation- Primary Gastrointestinal malfunction arising from mental factors Chronic superficial gastritis without bleeding Degeneration of intervertebral disc of lumbar region with discogenic back pain and lower extremity pain Chronic obstructive pulmonary disease, unspecified COPD type (HCC) Major depressive disorder, recurrent episode, moderate degree (HCC) Major depressive disorder, recurrent episode, moderate Class 3 severe obesity due to excess calories with serious comorbidity and body mass index (BMI) of 45.0 to 49.9 in adult [place] Essential hypertension, benign- Primary Essential hypertension, benign Major depressive disorder, recurrent episode, moderate degree (HCC) Major depressive disorder, recurrent episode, moderate Generalized anxiety disorder Generalized anxiety disorder Chronic obstructive pulmonary disease, unspecified COPD type (HCC) Adult hypothyroidism Unspecified hypothyroidism Breast cancer screening by mammogram Arthritis of ankle, left Primary osteoarthritis of left hip Status post total hip replacement, left Pre-op examination Post-menopausal bleeding Postmenopausal bleeding documented in this encounter [facility]Evaluation note* Diagnosis Encounter for preoperative assessment- Primary Primary osteoarthritis of left hip Essential hypertension, benign Essential hypertension, benign MDD (major depressive disorder), recurrent episode, mild Generalized anxiety disorder Generalized anxiety disorder Morbid obesity due to excess calories [place] Essential hypertension, benign- Primary Essential hypertension, benign Major depressive disorder, recurrent episode, moderate degree (HCC) Major depressive disorder, recurrent episode, moderate Generalized anxiety disorder Generalized anxiety disorder Primary osteoarthritis of left hip Bleeding hemorrhoids Unspecified hemorrhoids with other complication Class 3 severe obesity due to excess calories with serious comorbidity and body mass index (BMI) of 45.0 to 49.9 in adult [place] Prediabetes Other abnormal glucose Primary hypothyroidism Unspecified hypothyroidism Encounter for long-term (current) use of medications Encounter for long-term (current) use of other medications Dyslipidemia Other and unspecified hyperlipidemia Morbid obesity due to excess calories [place] Globus sensation- Primary Gastrointestinal malfunction arising from mental factors Chronic superficial gastritis without bleeding Degeneration of intervertebral disc of lumbar region with discogenic back pain and lower extremity pain Chronic obstructive pulmonary disease, unspecified COPD type (HCC) Major depressive disorder, recurrent episode, moderate degree (HCC) Major depressive disorder, recurrent episode, moderate Class 3 severe obesity due to excess calories with serious comorbidity and body mass index (BMI) of 45.0 to 49.9 in adult (CMS-HCC) Essential hypertension, benign- Primary Essential hypertension, benign Major depressive disorder, recurrent episode, moderate degree (HCC) Major depressive disorder, recurrent episode, moderate Generalized anxiety disorder Generalized anxiety disorder Chronic obstructive pulmonary disease, unspecified COPD type (HCC) Adult hypothyroidism Unspecified hypothyroidism Breast cancer screening by mammogram Arthritis of ankle, left Primary osteoarthritis of left hip Status post total hip replacement, left Preoperative clearance- Primary Unspecified pre-operative examination Post-menopausal bleeding Postmenopausal bleeding Essential hypertension, benign Essential hypertension, benign Paroxysmal atrial fibrillation (HCC) Atrial fibrillation Chronic obstructive pulmonary disease, unspecified COPD type (HCC) Gouty arthritis Gouty arthropathy, unspecified [facility] instructionsNot on filedocumented in this encounterPro[facility] SystemInstructionsNot on filedocumented in this encounterProMedica Health SystemInstructionsNot on filedocumented in this encounterProMedica [facility] SystemInstructionsNot on filedocumented in this encounterProMedica Health SystemInstructionsNot on filedocumented in this encounterProMedica Health SystemInstructionsNot on filedocumented in this encounterProMedica Health SystemInstructionsNot on filedocumented in this encounterProMedica Health SystemInstructionsNot on filedocumented in this encounterProMedica Health SystemInstructionsNot on filedocumented in this encounterAultman Hospital SystemReason for visit Narrative* Rehabilitation - Outpatient (Routine) - Authorized Specialty Diagnoses / Procedures Referred By Contac t Referred To Contact Physical Therapy Diagnoses Primary osteoarthritis of left hip Status post total hip replacement, left Procedures RI OFFICE/OUTPATIENT [facility] 60 MINUTES Sam Hancock MD [address] [place] [address] Phone: tel: fax: Christy Cary, PT [address] [place] [address] Phone: tel: fax: Referral ID Status Reason Start Date Expiration Date Visits Requested Visits Authorized [id number] Authorized Consult and Treat 01/04/2025 07/03/2025 30 30 [facility] HealthcareReason for [facility] Narrative* Rehabilitation - Outpatient (Routine) - Authorized Specialty Diagnoses / Procedures Referred By Contac t Referred To Contact Physical Therapy Diagnoses Primary osteoarthritis of left hip Status post total hip replacement, left Procedures RI OFFICE/OUTPATIENT NEW HIGH [facility] 60 MINUTES Sam Hancock MD [address] [place] [address] Phone: tel: fax: Christy Cary, PT [address] [place] [address] Phone: tel: fax: Referral ID Status Reason Start Date Expiration Date Visits Requested Visits Authorized [id number] Authorized Consult and Treat 01/04/2025 08/23/2025 30 30 [facility] Summary Purpose Family History No Family History Records FoundNo Family History Records FoundNo Family History Records FoundNo Family History Records FoundNo Family History Records FoundNo Family History Records FoundNo Family History Records Found Advance Directives No Advanced Directives Records Found Date Activated Date Inactivated Comments 11/07/2023 1:20 PM 11/14/2023 4:39 PM Date Activated Date Inactivated Comments 10/15/2023 7:18 AM 10/17/2023 3:35 PM Date Activated Date Inactivated Comments 11/07/2023 1:20 PM 11/14/2023 4:39 PM Date Activated Date Inactivated Comments 10/15/2023 7:18 AM 10/17/2023 3:35 PM Latest Code Status on File Code Status Date Activated Date Inactivated Comments Full Code 10/15/2023 7:18 AM Reason for Referral Specialty Diagnoses / Procedures Referred By Contac t Referred To Contact Rehabilitation Diagnoses S/P revision of total hip Josh Doyle, PADocC [address] [place] [address] [facility] [address] [place] [address] Referral ID Status Reason Start Date Expiration Date Visits Requested Visits Authorized [id number] Authorized Specialty Services Required 01/21/2024 07/23/2024 1 1 Specialty Diagnoses / Procedures Referred By Contac t Referred To Contact Diagnoses S/P revision of total hip Jalen Pierce MD [address] [place] [address] Referral ID Status Reason Start Date Expiration Date Visits Re quested Visits Authorized [id number] Closed 1 1 Specialty Diagnoses / Procedures Referred By Contac t Referred To Contact Diagnoses Periprosthetic fracture around internal prosthetic left hip joint, subsequent encounter Franco Adhikari PA-C [address] [place] [address] Referral ID Status Reason Start Date Expiration Date Visits Re quested Visits Authorized [id number] Closed 1 1 Specialty Diagnoses / Procedures Referred By Contac t Referred To Contact Rehabilitation Diagnoses Periprosthetic fracture around internal prosthetic left hip joint, subsequent encounter Josh Doyle PA-C [address] [place] [address] [facility] [address] [facility] [place] [address] Referral ID Status Reason Start Date Expiration Date Visits Requested Visits Authorized [id number] Authorized Specialty Services Required 12/09/2023 06/09/2024 1 1 Specialty Diagnoses / Procedures Referred By Contac t Referred To Contact Diagnoses Periprosthetic fracture around internal prosthetic left hip joint, subsequent encounter S/P revision of total hip Procedures Disability/Handicap Concha Luciano PA-C [address] [place] [address] Referral ID Status Reason Start Date Expiration Date V isits Requested Visits Authorized [id number] Pending Review 04/28/2024 04/28/2025 1 1 Additional Source Comments INFORMATION SOURCE (unrecogn ized section and content) DATE CREATED AUTHOR 01/24/2022 [facility] DATE CREATED AUTHOR AUTHOR'S ORGANIZ ATION 11/25/2023 [facility] DATE CREATED AUTHOR AUTHOR'S ORGANIZ ATION 04/30/2024 [facility] DATE CREATED AUTHOR AUTHOR'S ORGANIZ ATION 07/23/2024 [facility] DATE CREATED AUTHOR AUTHOR'S ORGANIZ ATION 01/09/2025 [facility] DATE CREATED AUTHOR AUTHOR'S ORGANIZ ATION 02/14/2025 [facility] DATE CREATED AUTHOR AUTHOR'S ORGANIZ ATION 03/05/2025 [facility] EPIC Reason for Visit (unrecogniz ed section and content) Reason Comments Med Refill Reason Comments Follow-up Talk about med/ heal th Reason Comments Follow-up Sciatica flair upRef erral to ENT Reason Comments Globus Sensation Specialty Diagnoses / Procedures Referred By Contac t Referred To Contact Otolaryngology Diagnoses Globus sensation Procedures RI OFFICE/OUTPATIENT [facility] MDM 60 MINUTES Sam Hancock MD [address] [place] [address] Phone: tel: fax: Myrtle Cota MD [address] [facility] [address] [place] [address] Phone: tel: fax: Referral ID Status Reason Start Date Expiration Date V isits Requested Visits Authorized [id number] Closed Specialty Services Required 09/05/2024 03/04/2025 1 1 Reason Onset Date Comments attribution outreach 12/09/2023 Reason Comments Follow-up Revision left total hip Follow-up Specialty Diagnoses / Procedures Referred By Contac t Referred To Contact Diagnoses Degenerative joint disease of left hip left hip degenerative joint disease Procedures RI TOTAL HIP ARTHROPLASTY REPLACEMENT TOTAL JOINT HIP Wilfredo Keen DO [address] [facility] [address] [place] [address] Referral ID Status Reason Start Date Expiration Date Visits Re quested Visits Authorized [id number] 1 1 Reason Comments Post-op s/p revision L TH Post-op Reason Comments Establish Care Revision L ALIN, XRD Follow-up Reason Comments Hemorrhoids BLEEDING HEMORRHOIDS , REFERRED BY DR HANCOCK Specialty Diagnoses / Procedures Referred By Michelle drew Referred To Contact General Surgery Diagnoses Bleeding hemorrhoids Procedures RI OFFICE OUTPATIENT VISIT 60-74 MINS HIGH MDM [id number] (SNOMED CT) - AMB REFERRAL TO GENERAL SURGERY Sam Hancock MD [address] [place] [place] [address] Phone: tel: fax: Sebastian Garcia, [address] [place] [address] Phone: tel: fax: Referral ID Status Reason Start Date Expiration Date V isits Requested Visits Authorized [id number] Pending Review 06/21/2024 12/18/2024 1 1 Reason Onset Date Comments Attribution Outreach 10/28/2024 Reason Comments Follow-up 3m Gout Left foot Reason Comments ER Follow-up Patient went to ER o n 11/25/24 for Postmenopausal Bleeding. Reason Comments Pre-op Visit Reason Comments Follow-up Surgical clearance d & c possible hyst Care Teams (unrecognized sec tion and content) Fixture Relamper Relationship Specialty Start Date End Date Sam Hancock MD [address] [place] [address] PCP - General Family Medicine 09/14/23 Fixture Relamper Relationship Specialty Start Date End Date Sam Hancock MD [address] [place] [address] PCP - General Family Medicine 09/14/23 Fixture Relamper Relationship Specialty Start Date End Date Sam Hancock MD [address] [place] [address] PCP - General Family Medicine 09/14/23 Fixture Relamper Relationship Specialty Start Date End Date Sam Hancock MD [address] [place] [address] PCP - General Family Medicine 09/14/23 Fixture Relamper Relationship Specialty Start Date End Date Sam Hancock MD [address] [place] [address] PCP - General Family Medicine 09/14/23 Fixture Relamper Relationship Specialty Start Date End Date Sam Hancock MD [address] [place] [address] PCP - General Family Medicine 09/14/23 Fixture Relamper Relationship Specialty Start Date End Date Sam Hancock MD [address] [place] [address] PCP - General Family Medicine 09/14/23 Fixture Relamper Relationship Specialty Start Date End Date Sam Hancock MD [address] [place] [address] PCP - General Family Medicine 09/14/23 Fixture Relamper Relationship Specialty Start Date End Date Sam Hancock MD [address] [place] [address] PCP - General Family Medicine 09/14/23 Fixture Relamper Relationship Specialty Start Date End Date Sam Hancock MD [address] [place] [address] PCP - General Family Medicine 09/14/23 Fixture Relamper Relationship Specialty Start Date End Date Sam Hancock MD [address] [place] [address] PCP - General Family Medicine 12/22/22 Fixture Relamper Relationship Specialty Start Date End Date Sam Hancock MD [address] [facility] [place] [address] PCP - General Family Medicine 12/22/22 Fixture Relamper Relationship Specialty Start Date End Date Sam Hancock MD [address] [place] [facility] [place] [address] PCP - General Family Medicine 12/22/22 Fixture Relamper Relationship Specialty Start Date End Date Sam Hancock MD [address] [place] [facility] [place] [address] PCP - General Family Medicine 12/22/22 Fixture Relamper Relationship Specialty Start Date End Date Sam Hancock MD [address] [place] [address] PCP - General Family Medicine 12/22/22 Fixture Relamper Relationship Specialty Start Date End Date Sam Hancock MD PCP - General Family Medicine 12/22/22 Fixture Relamper Relationship Specialty Start Date End Date Sam Hancock MD [address] [place] [address] PCP - General Family Medicine 06/30/24 Fixture Relamper Relationship Specialty Start Date End Date Sam Hancock MD [address] [place] [address] PCP - General Family Medicine 06/30/24 Fixture Relamper Relationship Specialty Start Date End Date Sam Hancock MD [address] [place] [address] PCP - General Family Medicine 06/30/24 Fixture Relamper Relationship Specialty Start Date End Date Sam Hancock MD [address] [place] [address] PCP - General Family Medicine 06/30/24 Fixture Relamper Relationship Specialty Start Date End Date Sam Hancock MD [address] [place] [address] PCP - General Family Medicine 09/14/23 Fixture Relamper Relationship Specialty Start Date End Date Sam Hancock MD PCP - General Family Medicine 06/30/24 Fixture Relamper Relationship Specialty Start Date End Date Sam Hancock MD PCP - General Family Medicine 06/30/24 Fixture Relamper Relationship Specialty Start Date End Date Sam Hancock MD [address] [place] [address] PCP - General Family Medicine 09/14/23 Fixture Relamper Relationship Specialty Start Date End Date Sam Hancock MD [address] [place] [address] PCP - General Family Medicine 09/14/23 Fixture Relamper Relationship Specialty Start Date End Date Sam Hancock MD [address] [place] [address] PCP - General Family Medicine 09/14/23 Fixture Relamper Relationship Specialty Start Date End Date Sam Hancock MD [address] [place] [address] PCP - General Family Medicine 09/14/23 Fixture Relamper Relationship Specialty Start Date End Date Sam Hancock MD [address] [place] [phone] PCP - General Family Medicine 09/14/23 Fixture Relamper Relationship Specialty Start Date End Date Sam Hancock MD [address] [place] [phone] PCP - General Family Medicine 09/14/23 Fixture Relamper Relationship Specialty Start Date End Date Sam Hancock MD [address] [place] [phone] PCP - General Family Medicine 09/14/23 Fixture Relamper Relationship Specialty Start Date End Date Sam Hancock MD [address] [place] [phone] PCP - General Family Medicine 09/14/23 Fixture Relamper Relationship Specialty Start Date End Date Sam Hancock MD [address] [place] [phone] PCP - General Family Medicine 09/14/23 Fixture Relamper Relationship Specialty Start Date End Date Sam Hancock MD [address] [place] [address] PCP - General Family Medicine 09/14/23 Scheduled Active and Recently Administ ered Medications (unrecognized section and content) Medication Order 10/15/2023 10/16/2023 10/17/2023 acetaminophen (TYLENOL EXTRA STRENGTH) tablet 1,000 mg 1,000 mg, oral, Every 6 hours scheduled, First dose on Tressa 10/15/23 at 1445, Start 6 hours after the pre-op dose. 1500 (Given - Provider: Valerie Garcia, ADRIENNE)2107 (Given - Provider: Katrin Montalvo RN) 0321 (Given - Provider: Katrin Montalvo RN)0747 (Given - Provider: Katie Molina RN)0900 (Canceled Entry - Provider: Katie Molina RN)1421 (Given - Provider: Nikki Tate RN)203 (Given - Provider: Dorene Vásquez RN) 0243 (Given - Provider: Dorene Vásquez RN)0852 (Given - Provider: Andree Gillespie RN)1500 (Due - Provider: Rema Murcia [facility])2100 (Due - Provider: Rema Murcia RPH) acetaminophen (TYLENOL) tablet 650 mg (COMPLETED) 650 [...] RN)0900 (Canceled Entry - Provider: Katie Molina, RN)2037 (Given - Provider: Dorene Vásquez, RN) 0853 (Given - Provider: Andree Gillespie RN)2100 (Due) ceFAZolin (ANCEF) IVPB 1000 mg/50 mL in iso-osmotic dextrose (20 mg/mL premix) (COMPLETED) 1,000 mg, intravenous, at 100 mL/hr, Administer over 30 Minutes, Once, On Tressa 10/15/23 at 0915, For 1 dose, Pre-op, Look-alike/sound-alike medication - verify indication for use., Indication: Surgical prophylaxis 1046 (Given - Provider: Suzette Pollock APRN-DOCKING SAW OPERATOR)1101 (Stop Bag - Provider: [place] Ba) ceFAZolin (ANCEF) IVPB 2000 mg/50 mL in [...] Indication: Surgical prophylaxis 1101 (Given - Provider: [place] aB)1131 (Stop Bag - Provider: [place] Ba) celecoxib (CeleBREX) capsule 200 mg (COMPLETED) 200 [...] RN) 0853 (Given - Provider: Andree Gillespie, RN) phentermine (ADIPEX-P) tablet 37.5 mg 37.5 mg, oral, Every morning before breakfast, First dose on Thu10/15/23 at 1445, Look-alike/sound-alike medication - verify indication for use. 1445 (Not Given - Provider: Valerie Garcia RN - Reason: Medication not available) 0600 (Not Given - Provider: Katrin Montalvo RN - Reason: Medication not available) 0700 (Not Given - Provider: Andree Gillespie, RN - Reason: Medication not available) sennosides-docusate sodium (SENOKOT-S) 8.6-50 mg 1 tablet 1 tablet, oral, 2 times daily, First dose on Thu10/16/23 at 0900, Start Post-Op Day 1: Hold for diarrhea 0749 (Given - Provider: Katie Molina RN)0900 (Canceled Entry - Provider: Katie Molina RN)2038 (Given - Provider: Dorene Vásquez RN) 0852 (Not Given - Provider: Andree Gillespie, RN - Reason: Patient/family refused)2100 (Due) tranexamic acid [...] Kidd RN)1106 (Continued by Anesthesia - Provider: D[place] Ba)1132 (Paused - Provider: [place] Ba - Comment: Switch to gravity)1133 (Restarted - Provider: Ron Pollock, FIBERGLASS BOAT FINISHER-DOCKING SAW OPERATOR)1221 (Anesthesia Volume Adjustment - Provider: Suzette Pollock APRN-DOCKING SAW OPERATOR)1247 (Anesthesia Volume Adjustment - Provider: Suzette Pollock APRN-DOCKING SAW OPERATOR)1420 (Stop Bag - Provider: Eunice Stewart, ADRIENNE) lactated ringers infusion 125 mL/hr, intravenous, Continuous, Starting on Tressa 10/15/23 at 1445 1504 (New Bag - Provider: Valerie Garcia, RN) 0809 (New Bag - Provider: Katie Molina, ADRIENNE)1619 (New Bag - Provider: Deepali Machuca, ADRIENNE)2325 [...] times daily PRN, itching, Starting on Tressa 24 at 1439, Look-alike/sound-alike medication - verify indication for use. 3 (Given - Provider: Katrin Montalvo RN) magnesium hydroxide (MILK OF MAGNESIA) suspension 30 mL 30 mL, oral, 2 times daily PRN, if no BM by post-op day 2, Starting on 10/17/23 at 0000, Start Post-Op Day 2: DO NOT use in Renal/Dialysis patients Shake well. morphine injection 2 mg(Linked Group 1) 2 mg, intravenous, Every 2 hour PRN, pain scale of 7-8, Starting on Tressa 24 at 1440, For [...] hours PRN, nausea, vomiting, Starting on Tressa 10/15/23 at 1440, Administer over 2-5 minutes. oxyCODONE [...] Montalvo RN) 0749 (Given - Provider: Katie Molina, ADRIENNE)203 (See Alternative - Provider: Dorene Vásquez RN) [...] RN)1801 (See Alternative - Provider: Valerie Garcia RN)2108 (See Alternative - Provider: Katrin Montalvo RN) 0749 (See Alternative - Provider: Katie Molina, ADRIENNE)2036 (Given - Provider: Dorene Vásquez, ADRIENNE) 024 (Given - Provider: Dorene Vásquez, ADRIENNE)0852 (Given - Provider: Andree Gillespie, RN) Linked Groups Order Group 1: morphine injection 2 mgJump to med 2 mg, intravenous, Every 2 hour PRN, pain scale of 7-8, Starting on Tressa 24 at 1440, For [...] - pain scale 4-6, Starting on Tressa 24 at 1440, The oral route is preferred [...] - pain scale 7-10, Starting on Tressa 24 at 1440, The oral route is preferred [...] BE BASED ON THE PRIMARY CLINICAL RECORDS. [employer] [facility]. provides no warranty or guarantee of the accuracy or completeness of information in this document.
--- OUTSIDE RECORDS SUMMARY | 2025-03-09 07:17 | XMS_ITS | Clinical Summary ---
Author Organization [facility] Address [address] [place] [address] Care Team Providers Care Commercial Diver Name Role Phone Sam Garcia MD Primary Care Provider [phone] Allergies Active Allergy Reactions Criticality Noted Date [...] Plan (03/01/2025 8:48 AM EDT): Follow with phytopathologist. Gouty arthritis 01/10/2025 Assessment & Plan (03/01/2025 [...] Encounters Date Type Department Care Team Description 03/02/2025 Clinisync Result Encounter [facility] External Department Unsolicited Johnny Davidson DO 03/02/2025 Clinisync Result Encounter NOMS External Department Unsolicited Provider, Generic External Data 03/01/2025 8:15 AM EDT Office Visit [facility] [address] [place] [address] Sam Garcia MD Preoperative clearance (Primary Dx); Post-menopausal bleeding; Essential hypertension, benign ; Paroxysmal atrial fibrillation (HCC); Chronic obstructive pulmonary disease, unspecified COPD type (HCC); Gouty arthritis 03/01/2025 Bamboo flowsheet [facility] [address] [place] [address] Sam Garcia MD 02/20/2025 10:40 AM EDT Consult [facility] [address] [place] [address] Johnny Davidson DO Pre-op examination; Post-menopausal bleeding 02/01/2025 7:00 AM EDT Treatment [facility] [address] [place] [phone] Vahe Kyle, PT Primary osteoarthritis of left hip; Status post total hip replacement, left 02/01/2025 Bamboo flowsheet [facility] [address] [place] [phone] Vahe Kyle, PT 02/01/2025 Travel 01/25/2025 12:00 PM EDT Evaluation [facility] [address] [place] [address] Vahe Kyle, PT General weakness (Primary Dx); Impaired functional mobility, balance, gait, and endurance; History of 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 joint 01/25/2025 Plan of Care Documentation [facility] [address] [place] [address] 01/25/2025 Bamboo flowsheet [facility] [address] [place] [phone] Vahe Kyle, PT 01/25/2025 Travel 01/10/2025 10:30 AM EDT [facility] [address] [place] [phone] Johnny Davidson, DO Post-menopausal bleeding 01/10/2025 Results Follow-Up [facility] [address] [place] [phone] Sam Garcia MD Gouty arthritis (Primary Dx) 01/10/2025 Bamboo flowsheet [facility] [address] [place] [phone] Johnny Davidson, 01/04/2025 9:15 AM EDT Office Visit [facility] [address] [place] [phone] Sam Garcia MD Essential hypertension, benign (Primary Dx); Major depressive disorder, recurrent episode, moderate degree (HCC); Generalized anxiety disorder ; Chronic obstructive pulmonary disease, unspecified COPD type (HCC); Adult hypothyroidism ; Breast cancer screening by mammogram; Arthritis of ankle, left; Primary osteoarthritis of left hip; Status post total hip replacement, left 01/04/2025 Bamboo flowsheet [facility] FM [address] [place] [phone] Sam Garcia MD 12/10/2024 Refill [facility] [address] [place] [phone] Ila Arias MD LPRD (laryngopharyngeal reflux disease) [...] EDT Office Visit [facility] [address] [place] [phone] Nola Knight PA [address] [place] [address] 06/07/2025 8:00 AM EDT Office Visit [facility] [address] [place] [phone] Sam Garcia MD [address] [place] [address] Health Maintenance Due Date Last Done Comments CT Colonography 1965 FIT 1965 FOBT 1965 Lung Cancer Screening Shared Decision Making 1965 Sigmoidoscopy 1965 Mammogram 2007 FIT-DNA 03/23/2022 03/23/2019 Influenza Vaccine (#1) 2025 03/20/2021, 2018 Cervical Cancer Screening 07/06/2028 HPV/Cotest 07/06/2028 Pap Smear 07/06/2028 07/06/2023 Colonoscopy 02/13/2033 02/13/2023 Colorectal Cancer Screening 02/13/2033 Procedures Procedure Name Priority Date/Time Associated Diagnosis Comments XR CHEST 2V 03/02/2025 11:36 AM EDT [facility] APTT Routine 03/02/2025 11:10 AM EDT [facility]MCOH PROTHROMBIN TIME INR W/O COUM Routine 03/02/2025 11:10 AM EDT ALL BASIC METABOLIC PANEL Routine 03/02/2025 11:10 AM EDT ALL CBC WITH AUTO DIFF Routine 03/02/2025 11:10 AM EDT TSH Routine 01/09/2025 6:40 AM EDT T3, FREE Routine 01/09/2025 6:40 AM EDT URIC ACID Routine 01/09/2025 6:40 AM EDT PAP SMEAR Routine 07/06/2023 12:00 AM EST from Last 3 Months or Most Recently Relevant to Health Maintenance Results * XR CHEST 2V (03/02/2025 11:36 AM EDT) Anatomical Region Laterality Modality Other 03/02/2025 11:3 6 AM EDT Narrative 03/02/2025 11:39 AM EDT The [address] [address] XRay Report Signed Patient: OG SHEFFIELD MR#: [id number] : 1965 Acct:[id number] Age/Sex: 59 / F ADM Date: 03/02/25 Loc: PST Attending Dr: Johnny Davidson D.O. Ordering Physician: Johnny Davidson D.O. Date of Service: 03/02/25 Procedure(s): XR chest 2V Accession Number(s): [id number] cc: Johnny Davidson D.O.; Sam Garcia M.D. The [place] [address] Patient Name: OG SHEFFIELD MRN: [facility]:[id number] date: 1965 Sex: F [facility] Accession/Order Number: [id number] Exam Date: 03/02/2025 11:34 Report Date: 03/02/2025 11:36 At the request of: JOHNNY DAVIDSON DO Procedure: XR chest 2V PA [...] Alarcon M.D. 03/02/2025 11:36 AM Dictation Location: [place] [address] Electronically authenticated by: [id number] Y Date: 03/02/2025 11:36 Dictated By: Marium Alarcon M.D. Signed By: 03/02/25 1139 DD/ 1136 TD/TT: Obstetrician And Gynaecologist: Procedure Note Radiology, Radiologist, MD - 03/02/2025 [place] [address] XRay Report Signed Patient: OG SHEFFIELD AMR#: [id number] : 1965Acct:[id number] Age/Sex: 59 / FADM Date: 03/02/25 Loc: PST Attending Dr: Johnny Davidson D.O. Ordering Physician: Johnny Davidson D.O. Date of Service: 03/02/25 Procedure(s): XR chest 2V Accession Number(s): [id number] cc: Johnny Davidson D.O.; Sam Garcia M.D. [place] [address] Patient Name: OG SHEFFIELD MRN: [facility]:[id number] date: 1965 Sex: F [facility] Current [facility] Location: [facility] Accession/Order Number: [id number] Exam Date: 03/02/2025 11:34 Report Date: 03/02/2025 11:36 At the request of: JOHNNY DAVIDSON DO Procedure: XR chest 2V PA AND LATERAL CHEST: CLINICAL HISTORY: Preoperative clearance COMPARISON: 07/11/2024 There is no focal parenchymal consolidation, effusion or pneumothorax.The cardiac, hilar and mediastinal silhouettes are within normal limits.There is no vascular congestion. The visualized bony thorax is intact.Endplate spurring is present at the spine. There are also degenerative changes atthe shoulders, greater on the left. XR/XR chest 2V IMPRESSION: NO ACUTE CARDIOPULMONARY ABNORMALITY. Impression dictated by: Marium Alarcon M.D. 03/02/2025 11:36 AM Dictation Location: [place] [address] Electronically authenticated by: [id number] Y Date: 1:36 Dictated By: Marium Alarcon M.D. Signed By:03/02/25 1139 DD/ 1136 TD/TT: Obstetrician And Gynaecologist: us Johnny Davidson DO [facility] Final Result * [facility] PROTHROMBIN TIME INR W/O COUM (03/02/2025 11:10 AM EDT) PROTHROMBIN TIME 11.4 9.0 - 11.6 sec TBH TBH INR 1.08 TBH Comment: DESIRED INR: 2.0-3.0 CONDITIONS NOT LISTED BELOW 2.5-3.5 FOR PROSTHETIC HEART VALVE REPLACEMENT 2.5-3.5 RECURRENT THROMBOSIS 03/02/2025 11:1 0 AM EDT 03/02/2025 11:15 AM EDT Narrative [facility] - 03/02/2025 12:29 PM EDT Generic External Data Provider [facility] F inal Result Performing Organization Address [facility]/ZIP Co de Phone Number [facility] * [facility] APTT (03/02/2025 11:10 AM EDT) PARTIAL THROMBOPLASTIN TIME 25.8 22.3 - 36.2 sec TB 03/02/2025 11:1 0 AM EDT 03/02/2025 11:15 AM EDT Narrative [facility] - 03/02/2025 12:29 PM EDT Generic External Data Provider [facility] F inal Result Performing Organization Address [facility] de Phone Number [facility] * (ABNORMAL) ALL CBC WITH AUTO DIFF (03/02/2025 11:10 AM EDT) TBH WBC 11.8(H) 4.0 - 11.0 10 3/uL TBH TBH RBC 3.79(L) 4.20 - 5.40 10 6/uL TBH TBH HGB 10.1(L) 12.0 - 16.0 g/dL TBH TBH HCT 31.1(L) 36.0 - 48.0 % TBH TBH MCV 82.1 81.0 - 99.0 fL TBH TBH MCH 26.6(L) 26.7 - 34.0 pg TBH TBH MCHC 32.5 29.9 - 35.2 g/dL TBH TBH RDW 17.9(H) 11.0 - 15.0 % TBH TBH PLT 390 150 - 450 10 3/uL TBH TBH MPV 8.4(L) 9.5 - 13.5 fL TBH NEUTROPHILS PERCENT AUTO 82.4(H) 43.0 - 75.0 % TBH LYMPHOCYTES PERCENT AUTO 10.8(L) 20.5 - 60.0 % TBH MONOCYTES PERCENT AUTO 5.4 1.7 - 12.0 % TBH TBH EO % 0.3(L) 0.9 - 7.0 % TBH BASOPHILS PERCENT AUTO 0.3 0.2 - 2.0 % TBH IMMATURE GRANULOCYTES PCT AUTO 0.8(H) 0.0 - 0.5 % TBH NEUTROPHILS ABSOLUTE AUTO 9.7(H) 1.4 - 6.5 10 3/uL TBH LYMPHOCYTES ABSOLUTE AUTO 1.3 1.2 - 3.8 10 3/uL TBH MONOCYTES ABSOLUTE AUTO 0.6 0.3 - 0.8 10 3/uL TBH TBH EO # 0.0 0.0 - 0.7 10 3/uL TBH BASOPHILS ABSOLUTE AUTO 0.0 0.0 - 0.1 10 3/uL TBH IMMATURE GRANULOCYTES ABS AUTO 0.09(H) 0.00 - 0.03 10 3/uL TBH 03/02/2025 11:1 0 AM EDT 03/02/2025 11:15 AM EDT Narrative [facility]IN[facility] - 03/02/2025 11:30 AM EDT us Johnny Davidson DO [facility] Final Result [facility] * (ABNORMAL) ALL BASIC METABOLIC PANEL (03/02/2025 11:10 AM EDT) SODIUM 132(L) 136 - 145 mmol/L TBH POTASSIUM 3.6 3.5 - 5.1 mmol/L TBH CHLORIDE 95(L) 98 - 107 mmol/L TBH CARBON DIOXIDE 23.7 21.0 - 32.0 mmol/L TBH ANION GAP 16.9 TBH GLUCOSE 157(H) 74 - 106 mg/dL TBH BLOOD UREA NITROGEN 6.0(L) 7.0 - 18.0 mg/dL TBH CREATININE 0.88 0.55 - 1.02 mg/dL TBH TBH EGFR-AF TRINIDADIAN >60 >=60 mL/min/1.7 3m 2 TBH TBH EGFR-NON AF TRINIDADIAN >60 >=60 mL/min/1.7 3m 2 TBH BUN CREATININE RATIO 6.8 TBH CALCIUM 8.5 8.5 - 10.1 mg/dL TBH 03/02/2025 11:1 0 AM EDT 03/02/2025 11:15 AM EDT Narrative [facility] - 03/02/2025 11:36 AM EDT us Johnny Lety DO [facility] Final Result Performing Organization Address [facility] Co de Phone Number [facility] TB[facility] * (ABNORMAL) Uric acid (01/09/2025 6:40 AM EDT) URIC ACID 8.8(H) 2.6 - 7.2 mg/dL [facility] Comment: PERFORMED AT [address] [address] 01/09/2025 6:40 AM EDT 01/09/2025 9:54 AM EDT Sam Garcia MD LAB BLOOD ORDERABLES Final Resul t Performing Organization Address [facility] de Phone Number [facility] * T3, free (01/09/2025 6:40 AM EDT) FREE T3 3.18 2.50 - 3.90 pg/mL [facility] Comment: PERFORMED AT [address],[place] [address] 01/09/2025 6:40 AM EDT 01/09/2025 9:54 AM EDT Sam Garcia MD LAB BLOOD ORDERABLES Final Resul t Performing Organization Address [facility] de Phone Number [facility] * TSH (01/09/2025 6:40 AM EDT) FREE T4 1.03 0.61 - 1.60 ng/dL [facility] TSH 1.19 0.49 - 4.67 uIU/mL [facility] Comment: PERFORMED AT [address],[place] [address] 01/09/2025 6:40 AM EDT 01/09/2025 9:54 AM EDT Sam Garcia MD LAB BLOOD ORDERABLES Final Resul t [facility] * Pap Smear (07/06/2023 12:00 AM EST) Swab Cervical swab / Unknown us Johnny Davidson DO LAB CYTOLOGY ORDERABLES Final Re sult EXTERNAL LAB from Last 3 Months or Most Recently Relevant to Health Maintenance Insurance [employer] MEDICAID [place] Care Teams Commercial Diver Relationship Specialty Start Date End Date Sam Garcia MD [address] [place] [address] PCP - General Family Medicine 09/14/23
--- OUTSIDE RECORDS SUMMARY | 2025-03-09 07:17 | XMS_ITS | Encounter Summary ---
Author Organization [facility] Address [address] [place] [address] Care Team Providers Care Commercial Real Estate Assistant Name Role Phone Sam Garcia MD Primary Care Provider [phone] Encounter Details Date Type Department Care Team ([facility] Contact Info) Description 03/02/2025 Clinisync Result Encounter NOMS External [...] Upcoming Encounters Date Type Department Care Team ([facility] Contact Info) Description 03/27/2025 8:30 AM EDT Office Visit [facility] [address] [address] Nola Knight PA [address] [place] [address] 06/07/2025 8:00 AM EDT Office Visit [facility] [address] [place] [address] Sam Garcia MD [address] [place] [address] documented as of this encounter Procedures Procedure Name Priority Date/Time Associated Diagnosis Comments ALL CBC WITH AUTO DIFF Routine 03/02/2025 11:10 AM EDT ALL BASIC METABOLIC PANEL Routine 03/02/2025 11:10 AM EDT documented in this encounter Results * (ABNORMAL) ALL BASIC METABOLIC PANEL (03/02/2025 [...] 0.55 - 1.02 mg/dL TBH TBH EGFR-AF SUDANESE >60 >=60 mL/min/1.7 3m 2 TBH TBH EGFR-NON AF SUDANESE >60 >=60 mL/min/1.7 3m 2 TBH BUN CREATININE RATIO 6.8 TBH CALCIUM 8.5 8.5 - 10.1 mg/dL [facility] 03/02/2025 11:1 0 AM EDT 03/02/2025 11:15 AM EDT Narrative [facility] - 03/02/2025 11:36 AM EDT us Azeem Lety DO [facility] Final Result [facility] TB * (ABNORMAL) ALL CBC WITH AUTO DIFF [...] [facility] - 03/02/2025 11:30 AM EDT us Azeem Lety DO [facility] Final Result [facility] documented in this encounter Visit Diagnoses Not on filedocumented in this encounter Care Teams Commercial Real Estate Assistant Relationship Specialty Start Date End Date Sam Garcia MD [address] [place] [phone] PCP - General Family Medicine 09/14/23 documented as of this encounter
--- OUTSIDE RECORDS SUMMARY | 2025-03-09 07:17 | XMS_ITS | Encounter Summary ---
Author Organization [facility] Address [address] [place] [facility] [place] [address] Care Team Providers Care Salesperson Recreational Vehicles Name Role Phone Sam Garcia MD Primary Care Provider [phone] Encounter Details Date Type Department Care Team ([facility] Contact Info) Description 03/02/2025 Clinisync Result Encounter NOMS External Department Unsolicited Johnny Davidson DO [address] [place] [address] Social History Tobacco Use Types Packs/Day Years [...] EDT Office Visit [facility] [address] [place] [phone] Nola Knight PA [address] [place] [address] 06/07/2025 8:00 AM EDT Office Visit [facility] [address] [place] [address] Sam Garcia MD [address] [place] [address] documented as of this encounter Procedures Procedure Name Priority Date/Time Associated Diagnosis Comments XR CHEST 2V 03/02/2025 11:36 AM EDT [facility] PROTHROMBIN TIME INR W/O COUM Routine 03/02/2025 11:10 AM EDT [facility] APTT Routine 03/02/2025 11:10 AM EDT documented in this encounter Results * XR CHEST 2V (03/02/2025 11:36 AM EDT) Anatomical Region Laterality Modality Other 03/02/2025 11:3 6 AM EDT Narrative 03/02/2025 11:39 AM EDT The [address] [address] XRay Report Signed Patient: DORIS SHEFFIELD MR#: [id number] : 1965 Acct:[id number] Age/Sex: 59 / F ADM Date: 03/02/25 Loc: PST Attending Dr: Johnny Davidson D.O. Ordering Physician: Johnny Davidson D.O. Date of Service: 03/02/25 Procedure(s): XR chest 2V Accession Number(s): [id number] cc: Johnny Davidson D.O.; Sam Garcia M.D. The [address] [address] Patient Name: DORIS SHEFFIELD MRN: [id number] date: 1965 Sex: F Assigned Patient Location: SURGOUT Current Patient Location: SURGOUT Accession/Order Number: [id number] Exam Date: 03/02/2025 11:34 Report Date: 03/02/2025 [...] Alarcon M.D. 03/02/2025 11:36 AM Dictation Location: [place] [address] Electronically authenticated by: [id number] Y Date: 03/02/2025 11:36 Dictated By: Marium Alarcon M.D. Signed By: 03/02/25 1139 DD/ 1136 TD/TT: Bookmobile Driver: Procedure Note Radiology, Radiologist, MD - 03/02/2025 [place] [address] XRay Report Signed Patient: DORIS SHEFFIELD AMR#: [id number] : 1965Acct:[id number] Age/Sex: 59 / FADM Date: 03/02/25 Loc: PST Attending Dr: Johnny Davidson D.O. Ordering Physician: Johnny Davidson D.O. Date of Service: 03/02/25 Procedure(s): XR chest 2V Accession Number(s): [id number] cc: Johnny Davidson D.O.; Sam Garcia M.D. The [address] [address] Patient Name: DORIS SHEFFIELD MRN: [id number]:[id number] date: 1965 Sex: F Assigned Patient Location: SURGOUT Current Patient Location: SURGOUT Accession/Order Number: [id number] Exam Date: 03/02/2025 11:34 Report Date: 03/02/2025 [...] Alarcon M.D. 03/02/2025 11:36 AM Dictation Location: [place] [address] Electronically authenticated by: [id number] Y Date: 1:36 Dictated By: Marium Alarcon M.D. Signed By:03/02/25 1139 DD/ 1136 TD/TT: Bookmobile Driver: Johnnyernie Silveirao [facility] Final Result * [facility]CF APTT (03/02/2025 11:10 AM EDT) PARTIAL THROMBOPLASTIN TIME 25.8 22.3 - 36.2 sec TBH 03/02/2025 11:1 0 AM EDT 03/02/2025 11:15 AM EDT Narrative [facility] - 03/02/2025 12:29 PM EDT Generic External Data Provider [facility] F inal Result [facility] TB * [facility] PROTHROMBIN TIME INR W/O COUM (03/02/2025 11:10 AM EDT) PROTHROMBIN TIME 11.4 9.0 - 11.6 sec TBH TBH INR 1.08 TBH Comment: DESIRED INR: 2.0-3.0 CONDITIONS NOT LISTED BELOW 2.5-3.5 FOR PROSTHETIC HEART VALVE REPLACEMENT 2.5-3.5 RECURRENT THROMBOSIS 03/02/2025 11:1 0 AM EDT 03/02/2025 11:15 AM EDT Narrative [facility] - 03/02/2025 12:29 PM EDT us Generic External Data Provider [facility] F inal Result [facility] documented in this encounter Visit Diagnoses Not on filedocumented in this encounter Care Teams Salesperson Recreational Vehicles Relationship Specialty Start Date End Date Sam Garcia MD [address] [place] [address] PCP - General Family Medicine 09/14/23 documented as of this encounter
--- OUTSIDE RECORDS SUMMARY | 2025-03-09 07:17 | XMS_ITS | Clinical Summary ---
Author Organization [facility] Address [address] [place] [address] Care Team Providers Care Mergers And Acquisitions Banker Name Role Phone Sam Garcia MD Primary Care Provider Allergies Active Allergy Reactions Criticality Noted Date [...] Description 02/13/2025 10:45 AM EDT Office Visit [place] [address] [place] [id number] Noble Aly MD Preop cardiovascular exam (Primary [...] patient's age to complete this topic Insurance [facility] MEDICAID Care Teams Mergers And Acquisitions Banker Relationship Specialty Start Date End Date Sam Garcia MD [address] [place] [address] PCP - General 07/24/22
--- OUTSIDE RECORDS SUMMARY | 2025-03-09 07:17 | XMS_ITS | Encounter Summary ---
Author Organization [facility] Address [address] [facility] [place] [address] Care Team Providers Care Tax Accounting Manager Name Role Phone Sam Garcia MD Primary Care Provider [phone] Encounter Details Date Type Department Care Team ( Contact Info) Description 03/01/2025 Bamboo flowsheet [facility] [address] [place] [address] Sam Garcia MD [address] [place] [id number] Social History Tobacco Use Types Packs/Day Years [...] Visit [facility] [address] [place] [address] Nola Knight PA [address] [place] [address] 06/07/2025 8:00 AM EDT Office Visit [facility] [address] [place] [phone] Sam Garcia MD [address] [place] [address] documented as of this encounter Visit Diagnoses Not on filedocumented in this encounter Care Teams Tax Accounting Manager Relationship Specialty Start Date End Date Sam Garcia MD [address] [place] [address] PCP - General Family Medicine 09/14/23 documented as of this encounter
--- NOTE | 2025-03-09 07:45 | CA_ITS ---
Patient Name: OG SHEFFIELD MR#: [id number] : 1965 Exam Date: 03/09/2025 Ordering Doctor: DR IGNACIO PHAM M.D. ECHOCARDIOGRAM REPORT PROCEDURE: CA ECHO DOPPLER COMPLETE INDICATIONS: Atrial fibrillation, Dyspnea COMPARISON: None. DESCRIPTION: COMPLETE ECHOCARDIOGRAM Real-time transthoracic echocardiography with 2D, M-mode, spectral and color flow Doppler performed. QUALITY: Technical quality was good. LEFT VENTRICLE: Normal chamber size. Normal left ventricular wall thickness. LV EF: Global left ventricular systolic function is hyperdynamic. Calculated left ventricular ejection fraction is 67%. No wall motion abnormalities. DIASTOLIC: Normal diastolic function. ATRIAL SEPTUM: Inadequately seen. LEFT ATRIUM: Normal chamber size. RIGHT ATRIUM: Normal chamber size. RIGHT VENTRICLE: Normal chamber size. Normal right ventricular systolic function. TRICUSPID VALVE: Normal mobility and thickness. No stenosis with trivial regurgitation. No evidence of pulmonary hypertension. RVSP 18mmHg. MITRAL VALVE: Mildly thickened with normal mobility. No evidence of mitral valve stenosis. Mild mitral annular calcification. No mitral regurgitation. AORTIC VALVE: Normal trileaflet appearance. Thickened aortic valve. Normal leaflet mobility. No evidence of aortic valve stenosis. No aortic regurgitation. AORTIC ROOT: Normal diameter and appearance. PULMONIC VALVE: Normal thickness and mobility. No stenosis. No regurgitation. PERICARDIUM: Trivial to small circumferential pericardial effusion. IVC: Collapses with inspiration. Normal size. CONCLUSION: 1. Global left systolic function is hyperdynamic; visually estimated ejection fraction 65 to 70% 2. Normal right ventricular size and systolic function 3. Normal diastolic function 4. The left atrium size 5. No significant valvular abnormalities 6. Trivial to small circumferential pericardial Adult Echocardiography Procedure Report Left Ventricle LVEDD (3.7 - 5.6 cm): 4.35 cm LVESD (2.2 - 4.0 cm): 2.98 cm LVIVS thickness (0.6 - 1.2 cm): 0.89 cm LVPW thickness (0.5 - 1.0 cm): 0.97 cm e': 0.11 m/s E - e': 7.18 LVOT Max Gradient: 5.12 mm[Hg] LVOT Area (cm2): 1.13 m/s Peak Velocity (LVOT): 1.13 m/s Mean Velocity (LVOT): 0.74 m/s LVOT Diameter 1.92 cm Left Ventricular Ejection Fraction: 67.21 % Left Atrium LA Volume Index (2D A2C): 32.22 ml/m2 Left Atrium Systolic Dimension: 3.25 cm Mitral Valve MV E to A Ratio: 0.96 Mitral Valve A-Wave Peak Velocity: 0.85 m/s Mitral Valve E-Wave Peak Velocity: 0.81 m/s Right Ventricle RV Internal Diastolic Dimension: 3.01 cm Aorta AO Root Diam: 3.55 cm Ascending Ao Diam: 3.30 cm Aortic Valve AoV Area (Peak Maurice): 2.67 cm2, 2.67 cm2 AoV Area (VTI): 2.86 cm2, 2.86 cm2 Peak Velocity(Antegrade Flow): 1.22 m/s Peak Gradient(Antegrade Flow): 5.93 mm[Hg] Mean Velocity(Antegrade Flow): 0.86 m/s Mean Gradient(Antegrade Flow): 3.34 mm[Hg] Velocity Time Integral: 21.44 cm Tricuspid Valve Peak Velocity (Regurgitant Flow): 1.90 m/s, 1.47 m/s Pulmonic Valve Mean Gradient: 2.91 mm[Hg] Mean Velocity: 0.80 m/s Peak Velocity: 1.12 m/s, 1.13 m/s Peak Gradient: 5.12 mm[Hg], 5.05 mm[Hg] Right Atrium Right Atrium Systolic Pressure: 27.20 ml, 27.20 ml Dictated by: Cara Sánchez M.D. on 03/09/2025 at 11:32 Approved by: Cara Sánchez M.D. on 03/09/2025 at 11:36
== END 2025-03-09 07:15 | disposition home or self-care (01) ==
LOC: CARD 07:14
PROVIDERS: PCP Family Medicine; Visit Provider Internal Medicine Interventional Cardiology
DX: Z01.810 Encounter for preprocedural cardiovascular examination (principal); I48.0 Paroxysmal atrial fibrillation; R06.02 Shortness of breath
CPT/HCPCS: 93306

== ENCOUNTER 2025-03-17 06:05 | Day surgery (SDC) | payer MEDICAID, SELFPAY ==
[2025-03-02 11:12] VITALS: BP 94/66; PULSE 91; TEMP 36.2; O2SAT 99; BMI 42.0
[2025-03-17] VITALS (8 sets, daily range): BP systolic 91–151; BP diastolic 71–94; PULSE 75–96; TEMP 36.2–36.6; O2SAT 95–100; BMI 41.8
--- OUTSIDE RECORDS SUMMARY | 2025-03-17 06:08 | XMS_ITS | CCD ---
Author Organization [facility] Care Team Providers Care Bung Remover Name Role Phone FILIPPO CHOWDARY Consulting Unavailable BETSY, DR TAY Velez Attending Unavailable BETSY, DR TAY Velez Admitting Unavailable ELYEREAbner, DR SAM Mccarthy Primary Care Unavailable RICARDA, FILIPPO Consulting Unavailable KARISSA, DR SAM Mccarthy Primary Care Unavailable BETSY, DR TAY Velez Attending Unavailable BETSY, DR TAY Velez Admitting Unavailable NADILIR, DR SAM Mccarthy Primary Care Unavailable BETSY, DR TAY Velze Attending Unavailable BETSY, DR TAY Velez Admitting [...] SAM Mccarthy Admitting Unavailable NADERER, DR SAM Mccatrhy Primary Care Unavailable NADERER, DR SAM Mccarthy [...] Unavailable Elyerer Sam DEMARCO Primary Care Provider KARISSA, SAM Mccarthy Admitting Unavailable NADERER, SAM Mccarthy Attending Unavailable NADEREAbner, SAM Mccarthy Primary Care Unavailable NADERER, SAM Primary Care Unavailable LIT GIFFORD Attending Unavailable CHOCO SALAMANCA Consulting Unavailable NOUMI JAMES Admitting Unavailable HEMATOLOGY, [facility] Consulting Maranda vailable JABARI LO Referring Unavailable NADERER, SAM Primary Care Unavailable JAABRI LO Referring Unavailable NADERER, SAM Primary Care [...] Provider Sam Hancock MD Primary Care Provider [phone] Sam Hancock MD Primary Care Provider Sam Hancock MD Primary Care Provider [phone] SAM HANCOCK Referring Unavailable NADILIR, SAM Primary Care Unavailable SUZETTE CEJA Attending Unavailable SUZETTE CEJA Referring Unavailable NADILIR, SAM Primary Care Unavailable KARISSA, SAM Referring Unavailable NADILIR, SAM Primary Care Unavailable KARISSA, SAM Referring Unavailable KARISSA, SAM Primary Care Unavailable KARISSA, SAM Attending Unavailable AZEEM DAVIDSON Attending Unavailable CHRISTY CARY Attending Unavailable KARISSA, SAM Referring Unavailable CHRISTY CARY Attending Unavailable KARISSA, SAM Referring Unavailable AZEEM DAVIDSON Attending Unavailable KARISSA, SAM Attending Unavailable KARISSA, SAM Attending Unavailable KARISSA, SAM Attending Unavailable MYRTLE COTA Attending Unavailable KARISSA, SAM Referring Unavailable IGNACIO PHAM Attending Unavailable Allergies Allergy Classification Reported Allergen(s) Allergy Type Date of Onset Reaction(s) Facility (2 sources) Meperidine Drug Allergy [facility] Repository (20 sources) Meperidine; Translations: [MEPERIDINE] Drug Allergy 07-24-2022 [facility] Work Phone: Medications Current Medications Medication Drug Class(es) Dates Sig (Normalized) Sig (Original) [id number] 200 actuat albuterol 0.09 mg/actuat metered dose inhaler (6 sources) beta2-Adrenergic Agonist Start: 07-11-2024 take 1 puff(s) by inhalation every four hours as needed albuterol (PROVENTIL HFA;VENTOLIN HFA) 90 mcg/actuation inhaler 1 puff every 4 (four) hours as needed. 07/11/2024 Active allopurinol 300 mg oral tablet (13 sources) Xanthine Oxidase Inhibitor Start: 01-10-2025 End: 03-01-2025 take 1 tablet by mouth once daily allopurinol (Zyloprim) 300 MG tablet Indications: Gouty arthritis Take 1 tablet (300 mg) by mouth Daily 30 tablet 2 03/01/2025 Active amLODIPine 10 mg oral tablet (20 sources) Dihydropyridine Calcium Channel Josemanuel Start: 10-06-2023 End: 06-21-2024 take 1 tablet by mouth once daily amLODIPine (Norvasc) 10 MG tablet Indications: Essential hypertension, benign Take 1 tablet (10 mg) by mouth Daily 30 tablet 5 06/21/2024 Active aspirin 325 mg delayed release oral tablet (12 sources) Platelet Aggregation Inhibitor, Nonsteroidal Anti-inflammatory Drug [...] Discontinued docusate sodium 50 mg / sennosides, retirement 8.6 mg oral tablet (5 sources) Start: [...] Discontinued (Reorder) take 2 tablets by mo [facility] every six hours as needed hydrOXYzine (ATARAX) 25 mg tablet Take 2 tablets (50 mg total) by mouth every 6 (six) hours as needed. Active take 1 tablet by [facility] three times daily as needed hydrOXYzine (ATARAX) [...] indication for use. take 2 tablets by [facility] in the morning losartan (COZAAR) 50 mg tablet Take 2 tablets (100 mg total) by mouth in the morning. Active take 1 tablet by [facility] in the morning losartan (Cozaar) 100 MG [...] (BMI) of 45.0 to 49.9 in adult (CMS/[facility]) Take 1 tablet (37.5 mg) by mouth in the morning. Take before meals. 30 tablet 06/21/2024 09/05/2024 Discontinued Start: 09-24-2023 End: 07-20-2024 take 37.5 mg by mouth once daily before breakfast 37.5 mg, oral, Every morning before breakfast, First dose on Thu10/15/23 at 1445, Look-alike/sound-alike medication - verify indication for use. 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, unspecified] Onset: 5 01-10-2025 Chronic Hypertension with complications and secondary hypertension (1 source) Hypertensive chronic kidney disease with stage 1 through stage 4 chronic kidney disease, or unspecified chronic kidney disease; Translations: [HTN CKD W/STAGE 1-4 CKD/UNS CKD] Onset: 1 Chronic Malaise and fatigue (11 sources) Asthenia; Translations: [Weakness] Onset: 5 01-25-2025 Episodic Menopausal disorders (18 sources) Postmenopausal bleeding; Translations: [Postmenopausal bleeding] Onset: [...] 4 11-24-2023 Chronic Other connective tissue disease (11 sources) History of revision of left total [...] (BMI) of 45.0 to 49.9 in adult (CMS/[facility])] Onset: 4 06-21-2024 Chronic Other nutritional; endocrine; [...] 06-21-2024 Episodic Other aftercare (2 sources) Other buttermaker (current) drug therapy; Translations: [OTH RESIDENTIAL SUPPORT SPECIALIST CURRENT DRUG THERAPY] Onset: 03-05-2021 Episodic Other aftercare (20 sources) Long-term current use of drug therapy; Translations: [Other alf (current) drug therapy] Onset: 06-21-2024 06-21-2024 Episodic [...] Test Name Value Interpretation Reference Range Facility CA ECHO DOPPLER COMPLETEon 0 03-09-2025 [place] [address] Cardiology Report Signed Patient: OG BADILLO MR#: [id number] : 1965 Acct:[id number] Age/Sex: 59 / F ADM Date: 03/09/25 Loc: CARD Attending Dr: IGNACIO PHAM Ordering Physician: IGNACIO PHAM Date of Service: 03/09/25 Procedure(s): CA echo doppler complete Accession Number(s): [id number] cc: DORA PHAM Marc M.D. Patient Name: OG BADILLO MR#: [id number] : 1965 Exam Date: 03/09/2025 Ordering Doctor: DR IGNACIO PHAM M.D. ECHOCARDIOGRAM REPORT PROCEDURE: CA ECHO DOPPLER COMPLETE INDICATIONS: Atrial fibrillation, Dyspnea COMPARISON: None. DESCRIPTION: COMPLETE ECHOCARDIOGRAM Real-time transthoracic echocardiography with 2D, M-mode, spectral and color flow Doppler performed. QUALITY: Technical quality was good. LEFT VENTRICLE: Normal chamber size. Normal left ventricular wall thickness. LV EF: Global left ventricular systolic function is hyperdynamic. Calculated left ventricular ejection fraction is 67%. No wall motion abnormalities. DIASTOLIC: Normal diastolic function. ATRIAL SEPTUM: Inadequately seen. LEFT ATRIUM: Normal chamber size. RIGHT ATRIUM: Normal chamber size. RIGHT VENTRICLE: Normal chamber size. Normal right ventricular systolic function. TRICUSPID VALVE: Normal mobility and thickness. No stenosis with trivial regurgitation. No evidence of pulmonary hypertension. RVSP 18mmHg. MITRAL VALVE: Mildly thickened with normal mobility. No evidence of mitral valve stenosis. Mild mitral annular calcification. No mitral regurgitation. AORTIC VALVE: Normal trileaflet appearance. Thickened aortic valve. Normal leaflet mobility. No evidence of aortic valve stenosis. No aortic regurgitation. AORTIC ROOT: Normal diameter and appearance. PULMONIC VALVE: Normal thickness and mobility. No stenosis. No regurgitation. PERICARDIUM: Trivial to small circumferential pericardial effusion. IVC: Collapses with inspiration. Normal size. CONCLUSION: 1. Global left systolic function is hyperdynamic; visually estimated ejection fraction 65 to 70% 2. Normal right ventricular size and systolic function 3. Normal diastolic function 4. The left atrium size 5. No significant valvular abnormalities 6. Trivial to small circumferential pericardial Adult Echocardiography Procedure Report Left Ventricle LVEDD (3.7 - 5.6 cm): 4.35 cm LVESD (2.2 - 4.0 cm): 2.98 cm LVIVS thickness (0.6 - 1.2 cm): 0.89 cm LVPW thickness (0.5 - 1.0 cm): 0.97 cm e': 0.11 m/s E - e': 7.18 LVOT Max Gradient: 5.12 mm[Hg] LVOT Area (cm2): 1.13 m/s Peak Velocity (LVOT): 1.13 m/s Mean Velocity (LVOT): 0.74 m/s LVOT Diameter 1.92 cm Left Ventricular Ejection Fraction: 67.21 % Left Atrium LA Volume Index (2D A2C): 32.22 ml/m2 Left Atrium Systolic Dimension: 3.25 cm Mitral Valve MV E to A Ratio: 0.96 Mitral Valve A-Wave Peak Velocity: 0.85 m/s Mitral Valve E-Wave Peak Velocity: 0.81 m/s Right Ventricle RV Internal Diastolic Dimension: 3.01 cm Aorta AO Root Diam: 3.55 cm Ascending Ao Diam: 3.30 cm Aortic Valve AoV Area (Peak Maurice): 2.67 cm2, 2.67 cm2 AoV Area (VTI): 2.86 cm2, 2.86 cm2 Peak Velocity(Antegrade Flow): 1.22 m/s Peak Gradient(Antegrade Flow): 5.93 mm[Hg] Mean Velocity(Antegrade Flow): 0.86 m/s Mean Gradient(Antegrade Flow): 3.34 mm[Hg] Velocity Time Integral: 21.44 cm Tricuspid Valve Peak Velocity (Regurgitant Flow): 1.90 m/s, 1.47 m/s Pulmonic Valve Mean Gradient: 2.91 mm[Hg] Mean Velocity: 0.80 m/s Peak Velocity: 1.12 m/s, 1.13 m/s Peak Gradient: 5.12 mm[Hg], 5.05 mm[Hg] Right Atrium Right Atrium Systolic Pressure: 27.20 ml, 27.20 ml Dictated by: Cara Sánchez M.D. on 03/09/2025 at 11:32 Approved by: Cara Sánchez M.D. on 03/09/2025 at 11:36 (more content not included)... [facility] Radiology, Radiologist, MD - 03/09/2025 [place] [address] Cardiology Report Signed Patient: OG BADILLO MR#: [id number] : 1965 Acct:[id number] Age/Sex: 59 / F ADM Date: 03/09/25 Loc: CARD Attending Dr: IGNACIO PHAM Ordering Physician: IGNACIO PHAM Date of Service: 03/09/25 Procedure(s): CA echo doppler complete Accession Number(s): [id number] cc: DORA PHAM Marc M.D. Patient Name: OG BADILLO MR#: [id number] : 1965 Exam Date: 03/09/2025 Ordering Doctor: DR IGNACIO PHAM M.D. ECHOCARDIOGRAM REPORT PROCEDURE: CA ECHO DOPPLER COMPLETE INDICATIONS: Atrial fibrillation, Dyspnea COMPARISON: None. DESCRIPTION: COMPLETE ECHOCARDIOGRAM Real-time transthoracic echocardiography with 2D, M-mode, spectral and color flow Doppler performed. QUALITY: Technical quality was good. LEFT VENTRICLE: Normal chamber size. Normal left ventricular wall thickness. LV EF: Global left ventricular systolic function is hyperdynamic. Calculated left ventricular ejection fraction is 67%. No wall motion abnormalities. DIASTOLIC: Normal diastolic function. ATRIAL SEPTUM: Inadequately seen. LEFT ATRIUM: Normal chamber size. RIGHT ATRIUM: Normal chamber size. RIGHT VENTRICLE: Normal chamber size. Normal right ventricular systolic function. TRICUSPID VALVE: Normal mobility and thickness. No stenosis with trivial regurgitation. No evidence of pulmonary hypertension. RVSP 18mmHg. MITRAL VALVE: Mildly thickened with normal mobility. No evidence of mitral valve stenosis. Mild mitral annular calcification. No mitral regurgitation. AORTIC VALVE: Normal trileaflet appearance. Thickened aortic valve. Normal leaflet mobility. No evidence of aortic valve stenosis. No aortic regurgitation. AORTIC ROOT: Normal diameter and appearance. PULMONIC VALVE: Normal thickness and mobility. No stenosis. No regurgitation. PERICARDIUM: Trivial to small circumferential pericardial effusion. IVC: Collapses with inspiration. Normal size. CONCLUSION: 1. Global left systolic function is hyperdynamic; visually estimated ejection fraction 65 to 70% 2. Normal right ventricular size and systolic function 3. Normal diastolic function 4. The left atrium size 5. No significant valvular abnormalities 6. Trivial to small circumferential pericardial Adult Echocardiography Procedure Report Left Ventricle LVEDD (3.7 - 5.6 cm): 4.35 cm LVESD (2.2 - 4.0 cm): 2.98 cm LVIVS thickness (0.6 - 1.2 cm): 0.89 cm LVPW thickness (0.5 - 1.0 cm): 0.97 cm e': 0.11 m/s E - e': 7.18 LVOT Max Gradient: 5.12 mm[Hg] LVOT Area (cm2): 1.13 m/s Peak Velocity (LVOT): 1.13 m/s Mean Velocity (LVOT): 0.74 m/s LVOT Diameter 1.92 cm Left Ventricular Ejection Fraction: 67.21 % Left Atrium LA Volume Index (2D A2C): 32.22 ml/m2 Left Atrium Systolic Dimension: 3.25 cm Mitral Valve MV E to A Ratio: 0.96 Mitral Valve A-Wave Peak Velocity: 0.85 m/s Mitral Valve E-Wave Peak Velocity: 0.81 m/s Right Ventricle RV Internal Diastolic Dimension: 3.01 cm Aorta AO Root Diam: 3.55 cm Ascending Ao Diam: 3.30 cm Aortic Valve AoV Area (Peak Maurice): 2.67 cm2, 2.67 cm2 AoV Area (VTI): 2.86 cm2, 2.86 cm2 Peak Velocity(Antegrade Flow): 1.22 m/s Peak Gradient(Antegrade Flow): 5.93 mm[Hg] Mean Velocity(Antegrade Flow): 0.86 m/s Mean Gradient(Antegrade Flow): 3.34 mm[Hg] Velocity Time Integral: 21.44 cm Tricuspid Valve Peak Velocity (Regurgitant Flow): 1.90 m/s, 1.47 m/s Pulmonic Valve Mean Gradient: 2.91 mm[Hg] Mean Velocity: 0.80 m/s Peak Velocity: 1.12 m/s, 1.13 m/s Peak Gradient: 5.12 mm[Hg], 5.05 mm[Hg] Right Atrium Right Atrium Systolic Pressure: 27.20 ml, 27.20 ml Dictated by: Cara Sánchez M.D. on 03/09/2025 at 11:32 Approved by: Cara Sánchez M.D. on 03/09/2025 at 11:36 Dictated By: Cara Sánchez M.D. Signed By: 03/09/25 1137 DD/ 1136 TD/TT: Environmental Health Specialist: [facility] Radiology Study observation (narrative) [facility] CA ECHO DOPPLER COMPLETEOrde red By: Radiologist Radiology on 03-09-2025 [facility] Work Phone: Orders Onlyon 03-09-2025 Orders Only [id number] Og Badillo 1965 F Date Provider Department Center 03/09/2025 [id number], HISTORICAL CARD [facility] Family History Problem Relation Age of Onset Hypertension Mother Heart attack Father Family Status - Relation Status Age at Mother Father Alive Normal [facility] ALL CBC WITH AUTO DIFFon BASOPHILS ABSOLUTE AUTO 0 [facility] Basophils/100 WBC (Bld) 0.3 % 0.2 - 2.0 % [facility] Eosinophils/100 WBC (Bld) 0.3 % Low 0.9 - 7.0 % [facility] Erythrocyte distribution width (RBC) [Ratio] 17.9 % High 11.0 - 15.0 % [facility] Hematocrit (Bld) [Volume fraction] 31.1 % Low 36.0 - 48.0 % [facility] Hemoglobin (Bld) [Mass/Vol] 10.1 g/dL Low 12.0 - 16.0 g/dL [facility] IMMATURE GRANULOCYTES ABS AUTO 0.09 High [facility] Immature granulocytes/100 WBC (Bld) 0.8 % High 0.0 - 0.5 % [facility] Interpretation and review of laboratory results Abnormal [facility] LYMPHOCYTES ABSOLUTE AUTO 1.3 [facility] Lymphocytes/100 WBC (Bld) 10.8 % Low 20.5 - 60.0 % [facility] MCH (RBC) [Entitic mass] 26.6 pg Low 26.7 - 34.0 pg [facility] MCHC (RBC) [Mass/Vol] 32.5 g/dL 29.9 - 35.2 g/dL [facility] MCV (RBC) [Entitic vol] 82.1 fL 81.0 - 99.0 fL [facility] MONOCYTES ABSOLUTE AUTO 0.6 [facility] Monocytes/100 WBC (Bld) 5.4 % 1.7 - 12.0 % [facility] NEUTROPHILS ABSOLUTE AUTO 9.7 High [facility] Neutrophils/100 WBC (Bld) 82.4 % High 43.0 - 75.0 % [facility] Platelet mean volume (Bld) [Entitic vol] 8.4 fL Low 9.5 - 13.5 fL [facility] TBH EO # 0 [facility]H PLT 390 [facility] TB RBC 3.79 Low [facility] TBH WBC 11.8 High [facility] XR CHEST 2Von 03-02-2025 [place] [address] XRay Report Signed Patient: OG BADILLO MR#: [id number] : 1965 Acct:[id number] Age/Sex: 59 / F ADM Date: 03/02/25 Loc: PST Attending Dr: Azeem Davidson D.O. Ordering Physician: Azeem Davidson D.O. Date of Service: 03/02/25 Procedure(s): XR chest 2V Accession Number(s): [id number] cc: Azeem Davidson D.O.; Sam Hancock M.D. The [address] [address] Patient Name: OG BADILLO MRN: [facility]:[id number] date: 1965 Sex: F Assigned Patient Location: SUR[facility]OUT [facility] Accession/Order Number: [id number] Exam Date: 03/02/2025 11:34 Report Date: 03/02/2025 [...] Alarcon M.D. 03/02/2025 11:36 AM Dictation Location: [place] [address] Electronically authenticated by: [id number] Y Date: 03/02/2025 11:36 Dictated By: Marium Alarcon M.D. Signed By: 03/02/25 1139 DD/ 1136 TD/TT: Environmental Health Specialist: [facility] Radiology, Radiologist, MD - 03/02/2025 The [place] [id number] XRay Report Signed Patient: OG BADILLO MR#: [id number] : 1965 Acct:[id number] Age/Sex: 59 / F ADM Date: 03/02/25 Loc: [facility] Attending Dr: Azeem Davidson D.O. Ordering Physician: Azeem Davidson D.O. Date of Service: 03/02/25 Procedure(s): XR chest 2V Accession Number(s): [id number] cc: Azeem Davidson D.O.; Sam Hancock M.D. The [place] [address] Patient Name: OG BADILLO MRN: [facility]:[id number] date: 1965 Sex: F Assigned Patient Location: SURGOUT Current Patient Location: SURGOUT Accession/Order Number: [id number] Exam Date: 03/02/2025 11:34 Report Date: 03/02/2025 [...] Alarcon M.D. 03/02/2025 11:36 AM Dictation Location: [place] [address] Electronically authenticated by: [id number] Y Date: 03/02/2025 11:36 Dictated By: Marium Alarcon M.D. Signed By: 03/02/25 1139 DD/ 1136 TD/TT: Environmental Health Specialist: [facility] Radiology Study observation (narrative) [facility] XR CHEST [facility]VOrdered By: [facility] Rad[facility] on 03-02-2025 [facility] Healthcare Work Phone: Office Visiton 02-13-2025 Follow-up visit [id number] Og Badillo 1965 F Date Provider Department Center 02/13/2025 IGNACIO BENEDICT [facility] Hos Family History Problem Relation Age of Onset Hypertension Mother Heart attack Father Family Status - Relation Status Age at Mother Father Alive Level of Service:06401 AR OFFICE/OUTPATIENT ESTABLISHED MOD MDM 30 MIN Normal [facility] T3, FREEon 01-09-2025 Free T3 [Mass/Vol] 3.18 pg/mL Normal 2.50-3.90 [facility] Comment on above: Performed By: #### F T3 #### [facility] ([facility]) [address] [place] [address] VIR THYROID PROFILE INCLUDES TSH FT4on 01-09-2025 Free T4 [Mass/Vol] 1.03 ng/dL Normal 0.61-1.60 [facility] Comment on above: Performed By: #### T HYR #### [facility] ([facility]) [address] [place] [address] VIR TSH 1.19 uIU/mL Normal 0.49-4.67 [facility] Comment on above: Performed By: #### T HYR #### [facility] ([facility]) [address] [place] [address] VIR URIC ACIDon 01-09-2025 Urate [Mass/Vol] 8.8 mg/dL High 2.6-7.2 [facility] Comment on above: Performed By: #### U KATHY #### [facility] ([facility]) [address] [place] [address] VIR BASIC METABOLIC PANLon 06-30 Anion gap [Moles/Vol] 15 mmol/L Normal 5-15 [facility] Comment on above: Performed By: #### C BCA, HA1C, BMP, 77303-1, LIVR, THYR #### [facility] ([id number]) [address] [place] [address] Calcium [Mass/Vol] 8.4 mg/dL Low 8.5-10.5 [facility] Comment on above: Performed By: #### C BCA, HA1C, BMP, 96675-6, LIVR, THYR #### [facility] ([id number]) [address], [address] [place] [address] Chloride [Moles/Vol] 101 mmol/L Normal 98-109 [facility] Comment on above: Performed By: #### C BCA, HA1C, BMP, 37418-0, LIVR, THYR #### [facility] ([id number]) [address], [address] [place] [address] CO2 [Moles/Vol] 23 mmol/L Normal 22-32 [facility] Comment on above: Performed By: #### C BCA, HA1C, BMP, 89070-2, LIVR, THYR #### [facility] ([id number]) [address] [place] [address] Creatinine [Mass/Vol] 0.71 mg/dL Normal 0.40-1.00 [facility] Comment on above: Result Comment: METH OD TRACEABLE TO IDMS STANDARD Performed By: #### C BCA, HA1C, BMP, 96788-8, LIVR, THYR #### [facility] ([id number]) [address], [address] [place] [address] eGFR (CKD-EPI) NON-RACE DEPENDENT >90 Normal >59 [facility] Comment on above: Result Comment: Reported eGFR is based on the CKD-EPI 2020 equation that does not use a race coefficient. Performed By: #### C BCA, HA1C, BMP, 04079-3, LIVR, THYR #### [facility] ([id number]) [address], [address] [place] [address] Glucose [Mass/Vol] 136 mg/dL High 65-99 [facility] Comment on above: Performed By: #### C BCA, HA1C, BMP, 67289-5, LIVR, THYR #### [facility] ([id number]) [address], [address] [place] [address] Potassium [Moles/Vol] 4.7 mmol/L Normal 3.5-5.0 [facility] Comment on above: Performed By: #### C BCA, HA1C, BMP, 20871-6, LIVR, THYR #### [facility] ([id number]) [address], [address] [place] [address] Sodium [Moles/Vol] 139 mmol/L Normal 134-146 [facility] Comment on above: Performed By: #### C BCA, HA1C, BMP, 71501-4, LIVR, THYR #### [facility] ([id number]) [address], [address] [place] [address] Urea nitrogen [Mass/Vol] 5 mg/dL Normal 5-23 [facility] Comment on above: Performed By: #### C BCA, HA1C, BMP, 41966-6, LIVR, THYR #### [facility] ([id number]) [address] [place] [address] CBC AND AUTO DIFFon 06-30-20 24 ABSOLUTE BASOPHIL 0.0 X10E9/L Normal 0.0-0.2 [facility] Comment on above: Performed By: #### C BCA, HA1C, BMP, 67108-7, LIVR, THYR #### [facility] ([id number]) [address] [place] [address] ABSOLUTE NEUTROPHIL 5.0 X10E9/L Normal 1.5-6.6 [facility] Comment on above: Performed By: #### C BCA, HA1C, BMP, 53245-3, LIVR, THYR #### [facility] ([id number]) [address] [place] [address] Basophils/100 WBC (Bld) 0.4 % Normal [facility] Comment on above: Performed By: #### C BCA, HA1C, BMP, 26400-8, LIVR, THYR #### [facility] ([id number]) [address] [address] [place] [address] Eosinophils (Bld) [#/Vol] 0.0 10*3/uL Normal 0.0-0.4 [facility] Comment on above: Performed By: #### C BCA, HA1C, BMP, 24980-4, LIVR, THYR #### [facility] ([id number]) [address] [place] [address] Eosinophils/100 WBC (Bld) 0.6 % Normal [facility] Comment on above: Performed By: #### C BCA, HA1C, BMP, 26170-3, LIVR, THYR #### [facility] ([id number]) [address] [place] [address] Erythrocyte distribution width (RBC) [Ratio] 13.9 % Normal 11.5-15.0 [facility] Comment on above: Performed By: #### C BCA, HA1C, BMP, 82832-6, LIVR, THYR #### [facility] ([id number]) [address] [facility] [address] [place] [address] Hematocrit (Bld) [Volume fraction] 34.1 % Low 35-47 [facility] [facility] Comment on above: Performed By: #### C BCA, HA1C, BMP, 38356-2, LIVR, THYR #### [facility] ([id number]) [address] [place] [address] Hemoglobin (Bld) [Mass/Vol] 11.2 g/dL Low 11.7-15.5 [facility] Comment on above: Performed By: #### C BCA, HA1C, BMP, 44136-7, LIVR, THYR #### [facility] ([id number]) [address] [place] [address] Lymphocytes (Bld) [#/Vol] 0.9 10*3/uL Low 1.0-3.5 [facility] Comment on above: Performed By: #### C BCA, HA1C, BMP, 21933-7, LIVR, THYR #### [facility] ([id number]) [address] [place] [address] Lymphocytes/100 WBC (Bld) 14.0 % Normal [facility] Comment on above: Performed By: #### C BCA, HA1C, BMP, 47461-3, LIVR, THYR #### [facility] ([id number]) [address] [place] [address] MCH (RBC) [Entitic mass] 33.2 pg Normal 27-34 [facility] Comment on above: Performed By: #### C BCA, HA1C, BMP, 89630-2, LIVR, THYR #### [facility] ([id number]) [address] [place] [address] MCHC (RBC) [Mass/Vol] 32.8 g/dL Normal 32-36 [facility] Comment on above: Performed By: #### C BCA, HA1C, BMP, 90157-1, LIVR, THYR #### [facility] ([id number]) [address], [facility] [address] [place] [address] MCV (RBC) [Entitic vol] 101 fL High 80-100 [facility] Comment on above: Performed By: #### C BCA, HA1C, BMP, 46195-6, LIVR, THYR #### [facility] ([id number]) [address], [facility] [address] [place] [address] Monocytes (Bld) [#/Vol] 0.6 10*3/uL Normal 0-0.9 [facility] Comment on above: Performed By: #### C BCA, HA1C, BMP, 35450-2, LIVR, THYR #### [facility] ([id number]) [address] [place] [address] Monocytes/100 WBC (Bld) 9.6 % Normal [facility] Comment on above: Performed By: #### C BCA, HA1C, BMP, 15038-7, LIVR, THYR #### [facility] ([id number]) [address] [place] [address] Neutrophils/100 WBC (Bld) 75.4 % Normal [facility] Comment on above: Performed By: #### C BCA, HA1C, BMP, 75565-4, LIVR, THYR #### [facility] ([id number]) [address] [place] [address] Platelet mean volume (Bld) [Entitic vol] 7.0 fL Normal 7-12 [facility] Comment on above: Performed By: #### C BCA, HA1C, BMP, 45682-5, LIVR, THYR #### [facility] ([id number]) [address] [place] [address] Platelets (Bld) [#/Vol] 296 10*3/uL Normal 150-450 [facility] Comment on above: Performed By: #### C BCA, HA1C, BMP, 94870-1, LIVR, THYR #### [facility] ([id number]) [address] [place] [address] RBC COUNT 3.36 X10E12/L Low 3.80-5.20 [facility] Comment on above: Performed By: #### C BCA, HA1C, BMP, 08538-8, LIVR, THYR #### [facility] ([id number]) [address] [place] [address] WBC (Bld) [#/Vol] 6.7 10*3/uL Normal 4.0-11.0 [facility] Comment on above: Performed By: #### C BCA, HA1C, BMP, 43111-9, LIVR, THYR #### [facility] ([id number]) [address] [place] [address] CBC W Auto Differential pane l (Bld)on 06-30-2024 ABSOLUTE BASOPHIL 0 [facility] Comment on above: PERFORMED AT [facility] [address],[place] [address] Basophils/100 WBC (Bld) 0.4 % [facility] Eosinophils (Bld) [#/Vol] 0 10*3/uL [facility] Eosinophils/100 WBC (Bld) 0.6 % [facility] Erythrocyte distribution width (RBC) [Ratio] 13.9 % 11.5 - 15.0 % [facility] Hematocrit (Bld) [Volume fraction] 34.1 % Low 35 - 47 % [facility] Hemoglobin (Bld) [Mass/Vol] 11.2 g/dL Low 11.7 - 15.5 g/dL [facility] Interpretation and review of laboratory results Abnormal [facility] Lymphocytes (Bld) [#/Vol] 0.9 10*3/uL Low [facility] Lymphocytes/100 WBC (Bld) 14 % [facility] MCH (RBC) [Entitic mass] 33.2 pg 27 - 34 pg [facility] MCHC (RBC) [Mass/Vol] 32.8 g/dL 32 - 36 g/dL [facility] MCV (RBC) [Entitic vol] 101 fL High 80 - 100 fL [facility] Monocytes (Bld) [#/Vol] 0.6 10*3/uL [facility] Monocytes/100 WBC (Bld) 9.6 % [facility] Neutrophils (Bld) [#/Vol] 5 10*3/uL [facility] Neutrophils/100 WBC (Bld) 75.4 % [facility] Platelet mean volume (Bld) [Entitic vol] 7 fL 7 - 12 fL [facility] Platelets (Bld) [#/Vol] 296 10*3/uL [facility] RBC (Bld) [#/Vol] 3.36 10*6/uL Low [facility] WBC corrected for nucl RBC Auto (Bld) [#/Vol] 6.7 [facility] HGB A1C (GLYCO-HGB)on 2023 Glucose [Mass/Vol] 123 mg/dL Normal [facility] Comment on above: Performed By: #### C BCA, HA1C, BMP, 64727-5, LIVR, THYR #### [facility] ([id number]) [address] [place] [address] HbA1c (Bld) [Mass fraction] 5.9 % High 4.4-5.6 [facility] Comment on above: Result Comment: NOTE ADA Guidelines Result HgbA1c Normal : less than 5.7 % Prediabetes : 5.7 % to 6.4 % Diabetes : > 6.4 % Use with caution in patients with abnormal hemoglobin variants as the half-life of red blood cells and in vivo glycation rates are affected. Performed By: #### C BCA, HA1C, BMP, 83435-8, LIVR, THYR #### [facility] ([id number]) [address] [place] [address] LIVER PANELon 06-30-2024 Albumin [Mass/Vol] 3.5 g/dL Normal 3.2-5.3 [facility] Comment on above: Performed By: #### C BCA, HA1C, BMP, 36496-4, LIVR, THYR #### [facility] ([id number]) [address] [place] [address] ALP [Catalytic activity/Vol] 98 U/L Normal 39-130 [facility] Comment on above: Performed By: #### C BCA, HA1C, BMP, 81649-8, LIVR, THYR #### [facility] ([id number]) [address] [place] [address] ALT [Catalytic activity/Vol] 22 U/L Normal 0-31 [facility] Comment on above: Performed By: #### C BCA, HA1C, BMP, 75840-4, LIVR, THYR #### [facility] ([id number]) [address] [place] [address] AST [Catalytic activity/Vol] 42 U/L High 0-41 [facility] Comment on above: Performed By: #### C BCA, HA1C, BMP, 13392-8, LIVR, THYR #### [facility] ([id number]) [address] [place] [address] Bilirubin [Mass/Vol] 0.4 mg/dL Normal 0.3-1.2 [facility] Comment on above: Performed By: #### C BCA, HA1C, BMP, 38286-3, LIVR, THYR #### [facility] ([id number]) [address], [facility] [address] [place] [address] Bilirubin.direct [Mass/Vol] 0.1 mg/dL Normal 0.0-0.4 [facility] Comment on above: Performed By: #### C BCA, HA1C, BMP, 12991-2, LIVR, THYR #### [facility] ([id number]) [address] [place] [address] Protein [Mass/Vol] 6.2 g/dL Normal 6.0-8.0 [facility] Comment on above: Performed By: #### C BCA, HA1C, BMP, 19251-2, LIVR, THYR #### [facility] ([id number]) [address] [place] [address] Lipid 1996 panelon 4 Cholesterol [Mass/Vol] 229 mg/dL High 150-200 [facility] Comment on above: Performed By: #### C BCA, HA1C, BMP, 19247-4, LIVR, THYR #### [facility] ([id number]) [address] [place] [address] Cholesterol in HDL [Mass/Vol] 53 mg/dL Normal >39 [facility] Comment on above: Result Comment: HDL <40 mg/dL - High Risk HDL > or = 40mg/dL- Desirable HDL >60 mg/dL - Negative Risk Performed By: #### C BCA, HA1C, BMP, 36363-9, LIVR, THYR #### [facility] ([id number]) [address] [place] [address] Cholesterol in LDL [Mass/Vol] 126 mg/dL Normal <130 [facility] Comment on above: Result Comment: LDL <100 mg/dL - Desirable LDL >160 mg/dL - High Risk Performed By: #### C BCA, HA1C, BMP, 07197-5, LIVR, THYR #### [facility] ([id number]) [address] [place] [address] Cholesterol in VLDL [Mass/Vol] 50 mg/dL High 0-30 [facility] Comment on above: Performed By: #### C BCA, HA1C, BMP, 39026-0, LIVR, THYR #### [facility] ([id number]) [address] [place] [address] CHOLESTEROL:HDL 4.3 Normal 1.0-5.0 [facility] Comment on above: Performed By: #### C BCA, HA1C, BMP, 53188-5, LIVR, THYR #### [facility] ([id number]) [address] [place] [address] Triglyceride [Mass/Vol] 252 mg/dL High 27-150 [facility] Comment on above: Performed By: #### C BCA, HA1C, BMP, 87918-2, LIVR, THYR #### [facility] ([id number]) [address] [place] [address] THYROID PROFILEon 06-30-2024 Free T4 [Mass/Vol] 0.60 ng/dL Low 0.61-1.60 [facility] Comment on above: Performed By: #### C BCA, HA1C, BMP, 39105-5, LIVR, THYR #### [facility] ([id number]) [address] [place] [address] TSH 4.99 uIU/mL High 0.49-4.67 [facility] Comment on above: Performed By: #### C BCA, HA1C, BMP, 51702-6, LIVR, THYR #### [facility] ([id number]) [address] [place] [address] XR FEMUR LT 2+ VIEWSon 04-28 XR [...] Rebolledo MD on 04/28/2024 7:02 PM Normal [facility] XR ELBOW RT MIN 3 VWSon 06-0 [...] Meade MD on 01/23/2024 7:27 AM Normal [facility] XR SHOULDER LT MIN 2 VWSon 0 [...] Hdz MD on 01/22/2024 6:08 AM Normal [facility] XR BONE LENGTH STUDYon 11-29 XR BONE LENGTH STUDY XR BONE LENGTH STUD Y CLINICAL INFORMATION:S/P revision of total hip . Mechanical: [place] and leg length. COMPARISON: None. PROCEDURE: AP [...] Claire MD on 11/30/2023 9:32 AM Normal [facility] XR HIP LT 2-3 VIEWS W OR [...] Hdz MD on 11/25/2023 5:53 PM Normal [facility] Coding Summaryon 11-24-2023 Coding Summary HTMLBase 64 DjpwxhgbVUo1cLg+PGhlYW Q+NZ8ROIMtF09ahYZlaO4s A5MDLKrZWjkwNIISXOxQOj MmosNmNY2qzNYzNWLg IC8+YY2iMNEdPwcilOQvb5 G3zAM1J24jur8eAUqctKC7 NBZoYuUuocfpf3hqcYz4GR cuNmluOyBt ATRajV56JZE2iW29Kz22mP LcbSBno7kgoOd0YiQdQWHk IPI7zOcoSDwbu4GtCYEoU4 2euYCuo7C6 KTJlrJnpoHTeJfGeoKL3fJ 3tPWkjlxpdj3zyhdfbXzq5 oo90cBMxj1B3eNL6P3Ugbc W3XOYyyOXr NtxuySHOoL8ngmeqg0esti ydUkPsARFnRIj9INu4IBXl iShkDbWpXR91HGE7ECEwrx PaS8ZrDLNw rQagWnZ0a7Z7Jk1YW1EKYb hzW6XKMIDOVDvjfAJ+PC90 aa25A6VyImsmLtn7FOXwKF Q5yEM8jO6e YLWbSEujo8S0uHA5B2Zsix Cezf2sz2dmJYIhLCojA31o uJMpl1L0WKJmxLT2YYWpcN vuOaBiyH30 Oyc+JDJakDhas9IpVqkzi5 dfe7nyaVn7OzkxVVCautPq wPxwLQR0j2NaPm1cRNCbgW N4lOA7iI1m HhBwCtB5ZNvxF308ZkPmsT ByGqhjI84qM8PmpBZ+PHRy Qxt1GTCscKsvZF6kV3GnBZ RpbmctbGVm zVfpOX0aYVImixibYMYbtL 3eNHRzL0f2PbEqLnL0YXsn W7TqKPKrlewtXn26fG9qMa PkVhM3JZvt U3KugyL4QUQrzLLvDJqsEJ V0N40jj7C1OVXbYDXyDCH7 jTO0rF4xvHauccwomKJrfT sgdmVydGlj CRocWBrnJ722GIKofArjMb NvZGluZyBEYXRlOiAgMDQv MDIvMjAyNDwvdGQ+PHRkIH F2dVkqHXSz pXRyIPgfWh4rpNbybHbcUZ 1xDUCxlnvsSYUnnJ5fKDHm bJJldBxwLI5eTDPwlofsk8 51UhTeZBW5 CXExnKBeJ6NkxB5xXrAsYO RvAUAsT4NwqJRbDXczW523 XZmlWhX3UNUqrmJmE9AdXG FsaWduOiB0 q2Z1Xq3Ke8YmhoouV8EhkZ TyEbPtWxbzCPn7X5CbLptd dHI+ZA91VPNbZF96HCc7HT R6cQeyYOeg IMWgN3IddQ2cJlUlBPEpJC RkOyc+PHRhYmxlIHdpZHRo TXbwGLOdXdCyxOnfCC7iYn 9yZGVyLWNv hGimpZOsNrZtd7fuEQTpHC ctLL7rfDfaP5QyfOX4XBJl a6q6Mc16V90wH4UbwBI+PG SciSS3bTO8 tI0wWfYsHpJ0VRqxF638Pm KgdVFfKfexy8glw5kjtTl4 DjR2QUIbuvMfxFzaEYB7u0 PsNm14F53e IHdpZHRoPSIxNSUiIHZhbG nptf6wzB3mJi9+PGNvbCB3 hWK1yT2bCkYqUtH6SKvuP5 49InRvcCIv Ofuvl7rah1gnzKz1ViHwTP ZgfrVnlVikBHY3i8IsIx94 X7OhkQxyv9PfLgu7iu05lL Zcu4P4kGV6 D7DzYOSxbvkjiSNinBjcWW 5qCXOllkugJJXpeO9lBMKh P9b5YpUcEuQ9JHacZ2Pwgm V3XQUupTFy FYKxtCQWuL0poyejo8irpf gwPvWeWBUoQAe3KIk3RAIf tGwrXmZkRKS2RtH3TRX2tP AbpG5pnOej duhtdB2hKcf+UMZ5mKYxaP RMZU0mZkwtbDB+PHRkIHN0 uGpnQQaoUSWwdN1rTNPmJ1 d5EgIoHfV4 FPyfW8HbxmE2HIWqwVCnMF YnlKZIgH2umdlni2mahcwx CpLoZLWqHHp1JNv1ITAbpZ duOiBsZWZ0 HaW8KDH1kMUvmZ4mhPxwoc hexB6dIad+QmlydGggRGF0 TPe9S6MzAyz8NITgiRdsRA 0ncGFkZGlu Bz7xiMtehYlzCT7zKWPjep ocq939ElBpr8dkJXTmmTUg YSluHDQ5J67po7D2ZLJgZZ FsRMH5xQI8 aR4gqJyzkvfxhHCndExkpq HwhEckNMgtILfwM368TXWu lYdcBqViMHi4Q5PhDqb4TT AahKpcUJ7j cJQeUIksKs2urQubkHkcUX 3tDLWetiyle798QeNxk4ej VPIdpNKlWNcdNXA3A40rs8 D4RALgXDNo LCX4eAI1fA6mvYbcbxdonL VmdDsgdmVydGljYWwtYWxp V176JSUfsTvnQzWpmGa5E7 GzQah1TTVu oNimVB0piELpQIzmCd2dhM wmhJxaVX3cTBAluhzoe825 IvBnh8fdTLNxpOKuNTimCW R3A25vi5Q7 WZPxCSMjASO9qJD4xJ3aaL lnbjogbGVmdDsgdmVydGlj UFmxYGhqB535FQSkbEhmAn BhdGllbnQg RNnhMEq3R5WaByickTU+PC 94PPOsWP15mCGuzRNmd8gk nWz9RmDeGGLtVFL4hWgtHR cgd3AtIHBl L75jwINbh6G4TDJsxLdxeQ SvFfYapXY6wZ9lLHbkwpfu s1hszlliAssro4ukbp60jO 45W80dYOyc ZHRoPSIzMCUiIHZhbGlnbj 8noP4vGc1+CCAcrPM9tKI2 uX8pJNUzEuN7MTkjH212Ep RvcCIvPjxj g1bdu3ltiUq2ViM0VVIdvr VapFutEEP2o1LxWa54L97v IHdpZHRoPSIyMCUiIHZhbG iogv6ewW1d Ii8+YBTloAQ8bWB8yL2zJd OkOnY8KUybI464IsTelTVn TkepA65zD2VkiXR+PHRyPj a6FEAbuWkq RI9hlVDnDEltBa5lQTX5Dy NsCkVzRRsbI4FvBYRfotou gqyxcXM6KCNdZADlsM43Ig 9udDogMTBw tLXXbN8ylwadw6rytcwuNj GbIJRtXWn1BFk1SIMfkCcq DsCmHTZ6KoB9QLM8tFHsmU 1hbGlnbjog mZ1mQ0MqWCOccsexYw56mE 1aRyZuQuD5XFfwMwo+U0xB VUdIVEVSLCBQQVRSSUNJQT wvdGQ+PHRk AEA1sXqnXZboZSVbrO2rBE EoU7s4ZoMrKqE2RInvU3Sj MMNhxkxsEb30jH5dDoEhPn D6LGwyP2Zn ffB2IZArkRCnMPcpCQT0T0 2ib3C9MYUgRZKaFWH5dBO5 wA2sbOmzizrvnZIrzSdpor VydGljYWwt ORrsX038EPOtgNquQyFoPw ByNgX1Kgz4K6UzLyy2DBDn xLxvPP6sxULpBAufKw3wmZ sfdBzjOT0b BMKxwjadYXAfaD1mTSSexS PwzBagSD6fJCYojfong099 BnLtJTJ3GKWtwXAxB6HjgP 9yOiAjMDAw NWIgU6FtcNMrPWybF740WX txTkF1LYTrytGdX0LdUDKc dOqqAhO5z1R0Lp40OrQIKC FyczwvdGQ+ PMWzAUA0mGmqUMgvWWVleZ 1tXLSlM9q3NsGjAsG9JPgp G9GbMBTxjtkfFe03qM2wXs NwZaU2OYdn X0YygeB8DIRcoXQxDUvpBI Y3K01ta5Z4KDQdSEYmKPY5 iTO2mY8vhYxailbtuMBymK sgdmVydGlj HDdvRWqjM283QIQxmZjwPq ZFTUFMRTwvdGQ+PHRkIHN0 eIudDYfsUUPfyN9uMJItF8 u5BvFzQtQ3 VSrpC5DgTSJbdzjeJw60pU 4bZxAuWyV4GYygY4KfcpF2 WGQhvAStUTeaHTG2M74gh2 R2XQQbLVJh PAR3iFF1xI9ctGidslqutS VmdDsgdmVydGljYWwtYWxp L978FVSsmYvtOy9JKO72EL 66T4HeIhwh dGFibGU+PHRhYmxlIHdpZH AyXJgjPZDeXtGbxXlhFL5u Aj8zZICnDKGflBuqeSXqOf Ffl6bzBRQk QIqiPS7iyOjtN9WhnQL6QQ Mas3l9Kw48Z00xQ4PjaVC+ TCPkkPP0zEM4bP2gHmIdFt K8LRcaY038 XhBmiQAaZhdon3pmr9iveC d6KmPiEAWcjaBgfPtfRIN8 s4SwYg83L02sMNbhQRLnLH IyMCUiIHZh qKadwr1iuN3hWf4+PGNvbC M2nFY2tH8qAfUoAyS5SFxb L947RwCocKFjCqisY82jY0 JvdXA+PHRy Ozw9UYCscQrdFB5jtBYsMF qjHq6lSRN1PoPvWcOmPCwe X4JsDCUwemectlbgfBQ9UB FpBYSnjQ95 Oo2phVukKs7zPTQbZVM2JO HpxNHmJ8AoiE9xYtWpOLAe AGJuI6CkkXTdCYeaB315XG gpNvC7OSUz opFcD0FsCODkjUoeBgC4m5 U9Fy2VfUqhhUViCV0cHyYi JPt6G8MwRnx7ZBNmjMekPZ 0ncGFkZGlu Ge9xsPndyLorQT7pTJYtzh brl042MiVjf3loJXSdhBZs WZbwDYN0N14xm8N4MPPqSY OyBNA0xIR9 vB5reTnbiqykqWXryStwvj SzsHyvLSzpVEtnI158ZKJf nFhnEnLYBar9Q5JsMlj0NE AywDhlPV5j gMOpOQymDt0srCcbaZbsHM 7bPUKebllii553JqUtm7uj CBUreHJcNPzoMIU7C73av0 L3XGMsSCRh NVE5jRE0nC3vtFlvymkubD VmdDsgdmVydGljYWwtYWxp N344SJJjzLxeFo0BQzv7L9 CvYvs7XKHz gJfuNM2cwPWgPVnyPd6zdA pmxAndBI6cUFQvmtzmb045 YtNiw1qhFQIlmGHcDRnvUT Q4X61yz7T0 PIXzRNDhBNV9dHT1jQ0tqQ lnbjogbGVmdDsgdmVydGlj PTebQImmV963VSGxySmxBo BheWVyOjwv dGQ+MX16vr12D6RjLogjWv z9CFEfYWS2lSM5gA7rXTYj NPxkk5I2wMV8D0TfewIcnv 2tx8ndTJXo ZTo (more content not included)... [facility] H&Hon 11-18-2023 Hematocrit (Bld) [Volume fraction] 29.1 % Low 33.7-40.4 [facility] Comment on above: Performed By: #### [id number] #### [facility] (DEFAULT) [address] [place] [address] Hemoglobin (Bld) [Mass/Vol] 9.3 g/dL Low 11.3-15.9 [facility] Comment on above: Performed By: #### [id number] #### [facility] (DEFAULT) [address] [place] [address] Provider Orderson 11-18-2023 Provider Orders [id number] 32 [id number]#1.0 0OTGTIFF Normal [facility] BASIC METABOLIC PANLon 11-13 Anion gap [Moles/Vol] 7 mmol/L Normal 5-15 [facility] Comment on above: Performed By: #### 6 793-4, 79507-4, 2157-01, BMP, FEPR, CBCA #### [facility] ([id number]) [address], [address] [place] [address] Calcium [Mass/Vol] 8.4 mg/dL Low 8.5-10.5 [facility] Comment on above: Performed By: #### 6 793-4, 85019-9, 2157-01, BMP, FEPR, CBCA #### [facility] ([id number]) [address], [address] [place] [address] Chloride [Moles/Vol] 103 mmol/L Normal 98-109 [facility] Comment on above: Performed By: #### 6 793-4, 82457-1, 2157-01, BMP, FEPR, CBCA #### [facility] ([id number]) [address], [address] [place] [address] CO2 [Moles/Vol] 29 mmol/L Normal 22-32 [facility] Comment on above: Performed By: #### 6 793-4, 78101-4, 2157-6, BMP, FEPR, CBCA #### [facility] ([id number]) [address] [address] Creatinine [Mass/Vol] 0.64 mg/dL Normal 0.40-1.00 [facility] Comment on above: Result Comment: METH OD TRACEABLE TO IDMS STANDARD Performed By: #### 6 793-4, 27237-9, 215-6, BMP, FEPR, CBCA #### [facility] ([id number]) [address], [address] [address] eGFR (CKD-EPI) NON-RACE DEPENDENT >90 Normal >59 [facility] Comment on above: Result Comment: Reported eGFR is based on the CKD-EPI 2020 equation that does not use a race coefficient. Performed By: #### 6 793-4, 52571-1, 2156-6, BMP, FEPR, CBCA #### [facility] ([id number]) [address] [address] Glucose [Mass/Vol] 109 mg/dL High 65-99 [facility] Comment on above: Performed By: #### 6 793-4, 14464-5, 2156-6, BMP, FEPR, CBCA #### [facility] ([id number]) [address] [address] Potassium [Moles/Vol] 4.1 mmol/L Normal 3.5-5.0 [facility] Comment on above: Performed By: #### 6 793-4, 92293-9, 2156-6, BMP, FEPR, CBCA #### [facility] ([id number]) [address] [address] Sodium [Moles/Vol] 139 mmol/L Normal 134-146 [facility] Comment on above: Performed By: #### 6 793-4, 91086-7, 215-6, BMP, FEPR, CBCA #### [facility] ([id number]) [address], [address] [address] Urea nitrogen [Mass/Vol] 7 mg/dL Normal 5-23 [facility] Comment on above: Performed By: #### 6 793-4, 50825-9, 6, BMP, FEPR, CBCA #### [facility] ([id number]) [address], [address] [address] CBC AND AUTO DIFFon 11-14-19 24 ABSOLUTE BASOPHIL 0.1 X10E9/L Normal 0.0-0.2 [facility] Comment on above: Performed By: #### 6 793-4, 44142-7, 2157-01, BMP, FEPR, CBCA #### [facility] ([id number]) [address], [address] [address] Band form neutrophils/100 WBC (Bld) 5.0 % Normal [facility] Comment on above: Performed By: #### 6 793-4, 04130-6, 2157-01, BMP, FEPR, CBCA #### [facility] ([id number]) [address] [address] Basophils/100 WBC (Bld) 1.0 % Normal [facility] Comment on above: Performed By: #### 6 793-4, 76139-8, 2157-01, BMP, FEPR, CBCA #### [facility] ([id number]) [address] [address] Eosinophils (Bld) [#/Vol] 0.1 10*3/uL Normal 0.0-0.4 [facility] Comment on above: Performed By: #### 6 793-4, 59556-8, 6, BMP, FEPR, CBCA #### [facility] ([id number]) [address], [address] [place] [address] Eosinophils/100 WBC (Bld) 1.0 % Normal [facility] Comment on above: Performed By: #### 6 793-4, 62020-6, 2157-01, BMP, FEPR, CBCA #### [facility] ([id number]) [address], [facility] [address] [place] [address] Erythrocyte distribution width (RBC) [Ratio] 15.1 % High 11.5-15.0 [facility] Comment on above: Performed By: #### 6 793-4, 18661-7, 2157-01, BMP, FEPR, CBCA #### [facility] ([id number]) [address], [address] [place] [address] Hematocrit (Bld) [Volume fraction] 22.4 % Low 35-47 [facility] Comment on above: Performed By: #### 6 793-4, 11365-2, 2157-01, BMP, FEPR, CBCA #### [facility] ([id number]) [address], [facility] [address] [place] [address] Lymphocytes (Bld) [#/Vol] 1.7 10*3/uL Normal 1.0-3.5 [facility] Comment on above: Performed By: #### 6 793-4, 67051-0, 2157-01, BMP, FEPR, CBCA #### [facility] ([id number]) [address], [facility] [address] [place] [address] Lymphocytes/100 WBC (Bld) 23.0 % Normal [facility] Comment on above: Performed By: #### 6 793-4, 47566-2, 2157-01, BMP, FEPR, CBCA #### [facility] ([id number]) [address], [address] [place] [address] MCH (RBC) [Entitic mass] 30.4 pg Normal 27-34 [facility] Comment on above: Performed By: #### 6 793-4, 19295-1, 2156-6, BMP, FEPR, CBCA #### [facility] ([id number]) [address], [facility] [address] [place] [address] MCHC (RBC) [Mass/Vol] 31.9 g/dL Low 32-36 [facility] Comment on above: Performed By: #### 6 793-4, 45052-0, 2156-6, BMP, FEPR, CBCA #### [facility] ([id number]) [address], [address] [address] MCV (RBC) [Entitic vol] 95 fL Normal 80-100 [facility] Comment on above: Performed By: #### 6 793-4, 60317-8, 2156-6, BMP, FEPR, CBCA #### [facility] ([id number]) [address], [address] [address] Metamyelocytes/100 WBC (Bld) 1.0 % Normal [facility] Comment on above: Performed By: #### 6 793-4, 06970-6, 2157-01, BMP, FEPR, CBCA #### [facility] ([id number]) [address], [facility] [address] [place] [address] Monocytes (Bld) [#/Vol] 0.7 10*3/uL Normal 0-0.9 [facility] Comment on above: Performed By: #### 6 793-4, 89386-8, 2156-6, BMP, FEPR, CBCA #### [facility] ([id number]) [address], [address] [address] Monocytes/100 WBC (Bld) 10.0 % Normal [facility] Comment on above: Performed By: #### 6 793-4, 18730-1, 2156-6, BMP, FEPR, CBCA #### [facility] ([id number]) [address], [address] [place] [address] MYELOCYTE 2.0 % Normal [facility] Comment on above: Performed By: #### 6 793-4, 57774-4, 6, BMP, FEPR, CBCA #### [facility] [facility] ([id number]) [address], [facility] [address] [place] [address] Neutrophils (Bld) [#/Vol] 4.5 10*3/uL Normal 1.5-6.6 [facility] Comment on above: Performed By: #### 6 793-4, 92135-2, 2157-01, BMP, FEPR, CBCA #### [facility] ([id number]) [address] [address] [place] [address] NUCLEATED RBC 2.0 /100 WBC High 0.0-1.0 [facility] Comment on above: Performed By: #### 6 793-4, 93479-6, 2157-01, BMP, FEPR, CBCA #### [facility] ([id number]) [address] [address] Platelet mean volume (Bld) [Entitic vol] 7.2 fL Normal 7-12 [facility] Comment on above: Performed By: #### 6 793-4, 60437-5, 2157-01, BMP, FEPR, CBCA #### [facility] ([id number]) [address] [address] [place] [address] Platelets (Bld) [#/Vol] 408 10*3/uL Normal 150-450 [facility] Comment on above: Performed By: #### 6 793-4, 39874-4, 6, BMP, FEPR, CBCA #### [facility] ([id number]) [address] [address] [place] [address] POLYCHROMASIA 1+ Abnormal NONE [facility] Comment on above: Performed By: #### 6 793-4, 08535-7, 2156-6, BMP, FEPR, CBCA #### [facility] ([id number]) [address], [facility] [address] [place] [address] RBC COUNT 2.35 X10E12/L Low 3.80-5.20 [facility] Comment on above: Performed By: #### 6 793-4, 89637-3, 215-6, BMP, FEPR, CBCA #### [facility] ([id number]) [address], [address] [address] SEG NEUTROPHIL 57.0 % Normal [facility] Comment on above: Performed By: #### 6 793-4, 03232-8, 2156-6, BMP, FEPR, CBCA #### [facility] ([id number]) [address], [address] [address] TEARDROP 1+ Abnormal NONE [facility] Comment on above: Performed By: #### 6 793-4, 29493-8, 2156-6, BMP, FEPR, CBCA #### [facility] ([id number]) [address], [address] [address] WBC (Bld) [#/Vol] 7.3 10*3/uL Normal 4.0-11.0 [facility] Comment on above: Performed By: #### 6 793-4, 64216-3, 2157-6, BMP, FEPR, CBCA #### [facility] ([id number]) [address] [address] HGB AND HCTon 11-14-2023 Hematocrit (Bld) [Volume fraction] 21.8 % Low 35-47 [facility] Comment on above: Performed By: #### 6 793-4, 49526-8, 2157-6, BMP, FEPR, CBCA #### [facility] ([id number]) [address], [address] [place] [address] Hemoglobin (Bld) [Mass/Vol] 7.1 g/dL Low 11.7-15.5 [facility] Comment on above: Performed By: #### 6 793-4, 99013-6, 2156-6, BMP, FEPR, CBCA #### [facility] ([id number]) [address], [address] [place] [address] MAGNESIUMon 11-14-2023 Magnesium [Mass/Vol] 1.9 mg/dL Normal 1.8-2.6 [facility] Comment on above: Performed By: #### 6 793-4, 37289-0, 2157-01, BMP, FEPR, CBCA #### [facility] ([id number]) [address], [address] [place] [address] BASIC METABOLIC PANLon 11-12 Anion gap [Moles/Vol] 9 mmol/L Normal 5-15 [facility] Comment on above: Performed By: #### 6 793-4, 50809-2, 2157-01, BMP, FEPR, CBCA #### [facility] ([id number]) [address], [address] [place] [address] Calcium [Mass/Vol] 8.4 mg/dL Low 8.5-10.5 [facility] Comment on above: Performed By: #### 6 793-4, 98171-7, 2156-6, BMP, FEPR, CBCA #### [facility] ([id number]) [address], [address] [place] [address] Chloride [Moles/Vol] 102 mmol/L Normal 98-109 [facility] Comment on above: Performed By: #### 6 793-4, 09503-2, 6, BMP, FEPR, CBCA #### [facility] ([id number]) [address], [facility] [address] [place] [address] CO2 [Moles/Vol] 28 mmol/L Normal 22-32 [facility] Comment on above: Performed By: #### 6 793-4, 64384-9, 2156-6, BMP, FEPR, CBCA #### [facility] ([id number]) [address] [address] Creatinine [Mass/Vol] 0.59 mg/dL Normal 0.40-1.00 [facility] Comment on above: Result Comment: METH OD TRACEABLE TO IDMS STANDARD Performed By: #### 6 793-4, 17999-7, 6, BMP, FEPR, CBCA #### [facility] ([id number]) [address], [facility] [address] [place] [address] eGFR (CKD-EPI) NON-RACE DEPENDENT >90 Normal >59 [facility] Comment on above: Result Comment: Reported eGFR is based on the CKD-EPI 2020 equation that does not use a race coefficient. Performed By: #### 6 793-4, 25396-5, 2156-6, BMP, FEPR, CBCA #### [facility] ([id number]) [address] [address] Glucose [Mass/Vol] 119 mg/dL High 65-99 [facility] Comment on above: Performed By: #### 6 793-4, 10979-0, 2156-6, BMP, FEPR, CBCA #### [facility] ([id number]) [address] [address] Potassium [Moles/Vol] 4.4 mmol/L Normal 3.5-5.0 [facility] Comment on above: Performed By: #### 6 793-4, 42258-1, 215-6, BMP, FEPR, CBCA #### [facility] ([id number]) [address], [address] [place] [address] Sodium [Moles/Vol] 139 mmol/L Normal 134-146 [facility] Comment on above: Performed By: #### 6 793-4, 56578-0, 6, BMP, FEPR, CBCA #### [facility] ([id number]) [address], [address] [place] [address] Urea nitrogen [Mass/Vol] 7 mg/dL Normal 5-23 [facility] Comment on above: Performed By: #### 6 793-4, 18677-1, 2157-01, BMP, FEPR, CBCA #### [facility] ([id number]) [address], [address] [place] [address] CBC AND AUTO DIFFon 11-13-19 ABSOLUTE BASOPHIL 0.0 X10E9/L Normal 0.0-0.2 [facility] Comment on above: Performed By: #### 6 793-4, 83278-8, 2157-01, BMP, FEPR, CBCA #### [facility] ([id number]) [address], [address] [place] [address] ABSOLUTE NEUTROPHIL 4.7 X10E9/L Normal 1.5-6.6 [facility] Comment on above: Performed By: #### 6 793-4, 27771-2, 2157-01, BMP, FEPR, CBCA #### [facility] ([id number]) [address], [address] [place] [address] Basophils/100 WBC (Bld) 0.5 % Normal [facility] Comment on above: Performed By: #### 6 793-4, 66322-3, 6, BMP, FEPR, CBCA #### [facility] ([id number]) [address], [address] [place] [address] Eosinophils (Bld) [#/Vol] 0.2 10*3/uL Normal 0.0-0.4 [facility] Comment on above: Performed By: #### 6 793-4, 63078-1, 2157-01, BMP, FEPR, CBCA #### [facility] ([id number]) [address], [facility] [address] [place] [address] Eosinophils/100 WBC (Bld) 3.2 % Normal [facility] Comment on above: Performed By: #### 6 793-4, 45367-9, 2157-01, BMP, FEPR, CBCA #### [facility] ([id number]) [address], [facility] [address] [place] [address] Erythrocyte distribution width (RBC) [Ratio] 14.8 % Normal 11.5-15.0 [facility] Comment on above: Performed By: #### 6 793-4, 69947-1, 2157-01, BMP, FEPR, CBCA #### [facility] ([id number]) [address], [facility] [address] [place] [address] Hematocrit (Bld) [Volume fraction] 22.2 % Low 35-47 [facility] Comment on above: Performed By: #### 6 793-4, 32960-6, 2157-01, BMP, FEPR, CBCA #### [facility] ([id number]) [address], [address] [place] [address] Hemoglobin (Bld) [Mass/Vol] 7.2 g/dL Low 11.7-15.5 [facility] Comment on above: Performed By: #### 6 793-4, 00377-3, 2157-01, BMP, FEPR, CBCA #### [facility] ([id number]) [address], [address] [place] [address] Lymphocytes (Bld) [#/Vol] 1.6 10*3/uL Normal 1.0-3.5 [facility] Comment on above: Performed By: #### 6 793-4, 51575-2, 2156-6, BMP, FEPR, CBCA #### [facility] ([id number]) [address] [address] Lymphocytes/100 WBC (Bld) 22.7 % Normal [facility] Comment on above: Performed By: #### 6 793-4, 56891-0, 2156-6, BMP, FEPR, CBCA #### [facility] ([id number]) [address] [address] MCH (RBC) [Entitic mass] 30.2 pg Normal 27-34 [facility] Comment on above: Performed By: #### 6 793-4, 19516-9, 2156-6, BMP, FEPR, CBCA #### [facility] ([id number]) [address], [address] [address] MCHC (RBC) [Mass/Vol] 32.2 g/dL Normal 32-36 [facility] Comment on above: Performed By: #### 6 793-4, 03502-3, 2156-, BMP, FEPR, CBCA #### [facility] ([id number]) [address] [address] MCV (RBC) [Entitic vol] 94 fL Normal 80-100 [facility] Comment on above: Performed By: #### 6 793-4, 67649-6, 2156-6, BMP, FEPR, CBCA #### [facility] ([id number]) [address] [address] Monocytes (Bld) [#/Vol] 0.5 10*3/uL Normal 0-0.9 [facility] Comment on above: Performed By: #### 6 793-4, 64395-0, 2156-6, BMP, FEPR, CBCA #### [facility] ([id number]) [address], [facility] [address] [place] [address] Monocytes/100 WBC (Bld) 7.6 % Normal [facility] Comment on above: Performed By: #### 6 793-4, 62203-7, 2157-6, BMP, FEPR, CBCA #### [facility] ([id number]) [address], [facility] [address] [place] [address] Neutrophils/100 WBC (Bld) 66.0 % Normal [facility] Comment on above: Performed By: #### 6 793-4, 66456-6, 2156-6, BMP, FEPR, CBCA #### [facility] ([id number]) [address], [facility] [address] [place] [address] Platelet mean volume (Bld) [Entitic vol] 7.0 fL Normal 7-12 [facility] Comment on above: Performed By: #### 6 793-4, 81673-8, 2156-6, BMP, FEPR, CBCA #### [facility] ([id number]) [address], [address] [address] Platelets (Bld) [#/Vol] 382 10*3/uL Normal 150-450 [facility] Comment on above: Performed By: #### 6 793-4, 47603-5, 2156-6, BMP, FEPR, CBCA #### [facility] ([id number]) [address], [facility] [address] [place] [address] POLYCHROMASIA 2+ Abnormal NONE [facility] Comment on above: Performed By: #### 6 793-4, 49911-0, 215-6, BMP, FEPR, CBCA #### [facility] ([id number]) [address], [facility] [address] [place] [address] RBC COUNT 2.37 X10E12/L Low 3.80-5.20 [facility] Comment on above: Performed By: #### 6 793-4, 17010-8, 2157-6, BMP, FEPR, CBCA #### [facility] ([id number]) [address], [address] [place] [address] STOMATOCYTE 1+ Abnormal NONE [facility] Comment on above: Performed By: #### 6 793-4, 32258-2, 2156-6, BMP, FEPR, CBCA #### [facility] ([id number]) [address], [address] [place] [address] WBC (Bld) [#/Vol] 7.1 10*3/uL Normal 4.0-11.0 [facility] Comment on above: Performed By: #### 6 793-4, 62482-6, 2156-6, BMP, FEPR, CBCA #### [facility] ([id number]) [address], [address] [place] [address] HGB AND HCTon 11-13-2023 Hematocrit (Bld) [Volume fraction] 23.8 % Low 35-47 [facility] Comment on above: Performed By: #### 6 793-4, 33848-8, 2156-6, BMP, FEPR, CBCA #### [facility] ([id number]) [address], [address] [place] [address] Hemoglobin (Bld) [Mass/Vol] 7.9 g/dL Low 11.7-15.5 [facility] Comment on above: Performed By: #### 6 793-4, 87794-6, 2156-6, BMP, FEPR, CBCA #### [facility] ([id number]) [address], [address] [place] [address] Haptoglobin Nephelometry [Ma ss/Vol]on 11-13-2023 HAPTOGLOBIN 390 mg/dL High 32-228 [facility] Comment on above: Performed By: #### 6 793-4, 22375-5, 2157-6, BMP, FEPR, CBCA #### [facility] ([id number]) [address], [address] [place] [address] IRON PROFILEon 11-13-2023 Iron [Mass/Vol] 56 ug/dL Normal 50-170 [facility] Comment on above: Performed By: #### 6 793-4, 68206-4, 2157-6, BMP, FEPR, CBCA #### [facility] ([id number]) [address], [address] [place] [address] IRON BINDING 294 ug/dL Normal 250-425 [facility] Comment on above: Performed By: #### 6 793-4, 96107-6, 2157-6, BMP, FEPR, CBCA #### [facility] ([id number]) [address], [address] [place] [address] IRON SATURATION 19 % SATURATION Normal 15-50 [facility] Comment on above: Performed By: #### 6 793-4, 51998-7, 2156-6, BMP, FEPR, CBCA #### [facility] ([id number]) [address], [address] [place] [address] LDH [Catalytic activity/Vol] on 11-13-2023 LDH 278 U/L High 100-235 [facility] Comment on above: Performed By: #### 6 793-4, 74566-6, 2157-6, BMP, FEPR, CBCA #### [facility] ([id number]) [address], [address] [place] [address] MAGNESIUMon 11-13-2023 Magnesium [Mass/Vol] 1.8 mg/dL Normal 1.8-2.6 [facility] Comment on above: Performed By: #### 6 793-4, 76346-5, 2157-6, BMP, FEPR, CBCA #### [facility] ([id number]) [address], [address] [place] [address] Reticulocytes/100 RBC (Bld)o n 11-13-2023 RETICULOCYTE COUNT 6.4 % High 0.4-2.2 [facility] Comment on above: Performed By: #### 6 793-4, 65069-7, 2156-6, BMP, FEPR, CBCA #### [facility] ([id number]) [address], [address] [place] [address] VITAMIN B12on 11-13-2023 Cobalamin (Vitamin B12) [Mass/Vol] 420 pg/mL Normal 180-914 [facility] Comment on above: Performed By: #### 6 793-4, 91052-6, 2157-01, BMP, FEPR, CBCA #### [facility] ([id number]) [address], [address] [place] [address] BASIC METABOLIC PANLon 11-11 Anion gap [Moles/Vol] 10 mmol/L Normal 5-15 [facility] Comment on above: Performed By: #### 6 793-4, 93120-2, 6, BMP, FEPR, CBCA #### [facility] ([id number]) [address], [address] [place] [address] Calcium [Mass/Vol] 8.6 mg/dL Normal 8.5-10.5 [facility] Comment on above: Performed By: #### 6 793-4, 61032-9, 2156-6, BMP, FEPR, CBCA #### [facility] ([id number]) [address], [address] [place] [address] Chloride [Moles/Vol] 102 mmol/L Normal 98-109 [facility] Comment on above: Performed By: #### 6 793-4, 42655-4, 2156-6, BMP, FEPR, CBCA #### [facility] ([id number]) [address], [facility] [address] [place] [address] CO2 [Moles/Vol] 27 mmol/L Normal 22-32 [facility] Comment on above: Performed By: #### 6 793-4, 60117-3, 2156-6, BMP, FEPR, CBCA #### [facility] ([id number]) [address] [address] Creatinine [Mass/Vol] 0.51 mg/dL Normal 0.40-1.00 [facility] Comment on above: Result Comment: METH OD TRACEABLE TO IDMS STANDARD Performed By: #### 6 793-4, 89928-4, 6, BMP, FEPR, CBCA #### [facility] ([id number]) [address] [address] eGFR (CKD-EPI) NON-RACE DEPENDENT >90 Normal >59 [facility] Comment on above: Result Comment: Reported eGFR is based on the CKD-EPI 2020 equation that does not use a race coefficient. Performed By: #### 6 793-4, 89548-7, 2156-6, BMP, FEPR, CBCA #### [facility] ([id number]) [address] [address] Glucose [Mass/Vol] 94 mg/dL Normal 65-99 [facility] Comment on above: Performed By: #### 6 793-4, 19786-4, 2156-6, BMP, FEPR, CBCA #### [facility] ([id number]) [address] [address] Potassium [Moles/Vol] 3.9 mmol/L Normal 3.5-5.0 [facility] Comment on above: Performed By: #### 6 793-4, 62762-3, 215-6, BMP, FEPR, CBCA #### [facility] ([id number]) [address], [address] [place] [address] Sodium [Moles/Vol] 139 mmol/L Normal 134-146 [facility] Comment on above: Performed By: #### 6 793-4, 86944-8, 6, BMP, FEPR, CBCA #### [facility] ([id number]) [address] [address] Urea nitrogen [Mass/Vol] 7 mg/dL Normal 5-23 [facility] Comment on above: Performed By: #### 6 793-4, 12016-8, 2157-01, BMP, FEPR, CBCA #### [facility] ([id number]) [address] [address] CBC AND AUTO DIFFon 11-12-19 24 Band form neutrophils/100 WBC (Bld) 1.0 % Normal [facility] Comment on above: Performed By: #### 6 793-4, 64532-0, 2157-01, BMP, FEPR, CBCA #### [facility] ([id number]) [address] [address] Eosinophils (Bld) [#/Vol] 0.2 10*3/uL Normal 0.0-0.4 [facility] Comment on above: Performed By: #### 6 793-4, 04393-7, 2157-01, BMP, FEPR, CBCA #### [facility] ([id number]) [address] [address] Eosinophils/100 WBC (Bld) 3.0 % Normal [facility] Comment on above: Performed By: #### 6 793-4, 14478-5, 2157-01, BMP, FEPR, CBCA #### [facility] ([id number]) [address], [facility] [address] [place] [address] Erythrocyte distribution width (RBC) [Ratio] 14.8 % Normal 11.5-15.0 [facility] Comment on above: Performed By: #### 6 793-4, 88892-6, 2157-01, BMP, FEPR, CBCA #### [facility] ([id number]) [address], [address] [place] [address] Hematocrit (Bld) [Volume fraction] 21.8 % Low 35-47 [facility] Comment on above: Performed By: #### 6 793-4, 89210-1, 2157-01, BMP, FEPR, CBCA #### [facility] ([id number]) [address], [facility] [address] [place] [address] Hemoglobin (Bld) [Mass/Vol] 7.0 g/dL Low 11.7-15.5 [facility] Comment on above: Performed By: #### 6 793-4, 60789-8, 2157-01, BMP, FEPR, CBCA #### [facility] ([id number]) [address], [address] [place] [address] Lymphocytes (Bld) [#/Vol] 1.8 10*3/uL Normal 1.0-3.5 [facility] Comment on above: Performed By: #### 6 793-4, 61228-4, 2157-01, BMP, FEPR, CBCA #### [facility] ([id number]) [address], [address] [place] [address] Lymphocytes/100 WBC (Bld) 23.0 % Normal [facility] Comment on above: Performed By: #### 6 793-4, 26777-9, 2157-01, BMP, FEPR, CBCA #### [facility] ([id number]) [address], [address] [place] [address] MCH (RBC) [Entitic mass] 29.7 pg Normal 27-34 [facility] Comment on above: Performed By: #### 6 793-4, 15933-2, 2156-6, BMP, FEPR, CBCA #### [facility] ([id number]) [address], [address] [place] [address] MCHC (RBC) [Mass/Vol] 32.2 g/dL Normal 32-36 [facility] Comment on above: Performed By: #### 6 793-4, 89865-4, 2156-6, BMP, FEPR, CBCA #### [facility] ([id number]) [address], [address] [place] [address] MCV (RBC) [Entitic vol] 92 fL Normal 80-100 [facility] Comment on above: Performed By: #### 6 793-4, 63209-1, 2156-6, BMP, FEPR, CBCA #### [facility] ([id number]) [address], [address] [place] [address] Metamyelocytes/100 WBC (Bld) 1.0 % Normal [facility] Comment on above: Performed By: #### 6 793-4, 51588-3, 2156-, BMP, FEPR, CBCA #### [facility] ([id number]) [address], [address] [place] [address] Monocytes (Bld) [#/Vol] 0.3 10*3/uL Normal 0-0.9 [facility] Comment on above: Performed By: #### 6 793-4, 26598-9, 2156-6, BMP, FEPR, CBCA #### [facility] ([id number]) [address], [facility] [address] [place] [address] Monocytes/100 WBC (Bld) 4.0 % Normal [facility] Comment on above: Performed By: #### 6 793-4, 41192-4, 2156-6, BMP, FEPR, CBCA #### [facility] ([id number]) [address], [address] [address] Neutrophils (Bld) [#/Vol] 5.6 10*3/uL Normal 1.5-6.6 [facility] Comment on above: Performed By: #### 6 793-4, 84853-7, 2156-6, BMP, FEPR, CBCA #### [facility] ([id number]) [address], [address] [address] NUCLEATED RBC 7.0 /100 WBC High 0.0-1.0 [facility] Comment on above: Performed By: #### 6 793-4, 37192-1, 2156-6, BMP, FEPR, CBCA #### [facility] ([id number]) [address] [address] Platelet mean volume (Bld) [Entitic vol] 6.9 fL Low 7-12 [facility] Comment on above: Performed By: #### 6 793-4, 48886-5, 2156-6, BMP, FEPR, CBCA #### [facility] ([id number]) [address] [address] Platelets (Bld) [#/Vol] 332 10*3/uL Normal 150-450 [facility] Comment on above: Performed By: #### 6 793-4, 38574-8, 2156-6, BMP, FEPR, CBCA #### [facility] ([id number]) [address] [address] POLYCHROMASIA 1+ Abnormal NONE [facility] Comment on above: Performed By: #### 6 793-4, 13667-9, 215-6, BMP, FEPR, CBCA #### [facility] ([id number]) [address] [address] [place] [address] RBC COUNT 2.36 X10E12/L Low 3.80-5.20 [facility] Comment on above: Performed By: #### 6 793-4, 60274-5, 2156-6, BMP, FEPR, CBCA #### [facility] ([id number]) [address], [address] [place] [address] SEG NEUTROPHIL 68.0 % Normal [facility] Comment on above: Performed By: #### 6 793-4, 48672-2, 2156-6, BMP, FEPR, CBCA #### [facility] ([id number]) [address], [address] [place] [address] WBC (Bld) [#/Vol] 8.0 10*3/uL Normal 4.0-11.0 [facility] Comment on above: Performed By: #### 6 793-4, 57360-4, 2156-6, BMP, FEPR, CBCA #### [facility] ([id number]) [address], [address] [place] [address] HGB AND HCTon 11-12-2023 Hematocrit (Bld) [Volume fraction] 22.2 % Low 35-47 [facility] Comment on above: Performed By: #### 6 793-4, 80156-0, 2156-6, BMP, FEPR, CBCA #### [facility] ([id number]) [address], [address] [place] [address] Hemoglobin (Bld) [Mass/Vol] 7.4 g/dL Low 11.7-15.5 [facility] Comment on above: Performed By: #### 6 793-4, 75449-7, 2156-6, BMP, FEPR, CBCA #### [facility] ([id number]) [address], [address] [place] [address] MAGNESIUMon 11-12-2023 Magnesium [Mass/Vol] 2.0 mg/dL Normal 1.8-2.6 [facility] Comment on above: Performed By: #### 6 793-4, 04610-7, 2156-6, BMP, FEPR, CBCA #### [facility] ([id number]) [address], [address] [place] [address] BASIC METABOLIC PANLon 11-10 Anion gap [Moles/Vol] 10 mmol/L Normal 5-15 [facility] Comment on above: Performed By: #### 6 793-4, 41521-4, 215-6, BMP, FEPR, CBCA #### [facility] ([id number]) [address], [address] [place] [address] Calcium [Mass/Vol] 8.5 mg/dL Normal 8.5-10.5 [facility] Comment on above: Performed By: #### 6 793-4, 60171-7, 2156-6, BMP, FEPR, CBCA #### [facility] ([id number]) [address], [address] [place] [address] Chloride [Moles/Vol] 99 mmol/L Normal 98-109 [facility] Comment on above: Performed By: #### 6 793-4, 81801-1, 2156-6, BMP, FEPR, CBCA #### [facility] ([id number]) [address], [address] [place] [address] CO2 [Moles/Vol] 27 mmol/L Normal 22-32 [facility] Comment on above: Performed By: #### 6 793-4, 40646-7, 7-6, BMP, FEPR, CBCA #### [facility] ([id number]) [address], [address] [place] [address] Creatinine [Mass/Vol] 0.53 mg/dL Normal 0.40-1.00 [facility] Comment on above: Result Comment: METH OD TRACEABLE TO IDMS STANDARD Performed By: #### 6 793-4, 96608-6, 215-6, BMP, FEPR, CBCA #### [facility] ([id number]) [address] [address] eGFR (CKD-EPI) NON-RACE DEPENDENT >90 Normal >59 [facility] Comment on above: Result Comment: Reported eGFR is based on the CKD-EPI 2020 equation that does not use a race coefficient. Performed By: #### 6 793-4, 72925-5, 215-6, BMP, FEPR, CBCA #### [facility] ([id number]) [address] [address] Glucose [Mass/Vol] 125 mg/dL High 65-99 [facility] Comment on above: Performed By: #### 6 793-4, 11575-5, 2156-6, BMP, FEPR, CBCA #### [facility] ([id number]) [address] [address] Potassium [Moles/Vol] 3.3 mmol/L Low 3.5-5.0 [facility] Comment on above: Performed By: #### 6 793-4, 01988-3, 2156-6, BMP, FEPR, CBCA #### [facility] ([id number]) [address] [address] Sodium [Moles/Vol] 136 mmol/L Normal 134-146 [facility] Comment on above: Performed By: #### 6 793-4, 06929-2, 2157-6, BMP, FEPR, CBCA #### [facility] ([id number]) [address] [address] Urea nitrogen [Mass/Vol] 10 mg/dL Normal 5-23 [facility] Comment on above: Performed By: #### 6 793-4, 95265-6, 2157-6, BMP, FEPR, CBCA #### [facility] ([id number]) [address], [address] [place] [address] CBC AND AUTO DIFFon 20- 24 ABSOLUTE BASOPHIL 0.0 X10E9/L Normal 0.0-0.2 [facility] Comment on above: Performed By: #### 6 793-4, 71863-4, 6, BMP, FEPR, CBCA #### [facility] ([id number]) [address], [address] [place] [address] ABSOLUTE NEUTROPHIL 6.4 X10E9/L Normal 1.5-6.6 [facility] Comment on above: Performed By: #### 6 793-4, 51898-8, 2157-01, BMP, FEPR, CBCA #### [facility] ([id number]) [address], [address] [place] [address] Basophils/100 WBC (Bld) 0.2 % Normal [facility] Comment on above: Performed By: #### 6 793-4, 16752-3, 2157-01, BMP, FEPR, CBCA #### [facility] ([id number]) [address] [address] Eosinophils (Bld) [#/Vol] 0.1 10*3/uL Normal 0.0-0.4 [facility] Comment on above: Performed By: #### 6 793-4, 26950-3, 6, BMP, FEPR, CBCA #### [facility] ([id number]) [address] [address] Eosinophils/100 WBC (Bld) 1.5 % Normal [facility] Comment on above: Performed By: #### 6 793-4, 39315-8, 2156-6, BMP, FEPR, CBCA #### [facility] ([id number]) [address], [address] [place] [address] [place] [address] Erythrocyte distribution width (RBC) [Ratio] 14.6 % Normal 11.5-15.0 [facility] Comment on above: Performed By: #### 6 793-4, 84960-8, 6, BMP, FEPR, CBCA #### [facility] ([id number]) [address] [address] [place] [address] Hematocrit (Bld) [Volume fraction] 21.4 % Low 35-47 [facility] Comment on above: Performed By: #### 6 793-4, 03333-6, 2157-01, BMP, FEPR, CBCA #### [facility] ([id number]) [address] [address] Hemoglobin (Bld) [Mass/Vol] 7.3 g/dL Low 11.7-15.5 [facility] Comment on above: Performed By: #### 6 793-4, 98795-3, 2157-01, BMP, FEPR, CBCA #### [facility] ([id number]) [address] [address] Lymphocytes (Bld) [#/Vol] 1.1 10*3/uL Normal 1.0-3.5 [facility] Comment on above: Performed By: #### 6 793-4, 51358-7, 6, BMP, FEPR, CBCA #### [facility] ([id number]) [address] [address] Lymphocytes/100 WBC (Bld) 13.0 % Normal [facility] Comment on above: Performed By: #### 6 793-4, 58468-7, 6, BMP, FEPR, CBCA #### [facility] ([id number]) [address] [address] [place] [address] MCH (RBC) [Entitic mass] 30.7 pg Normal 27-34 [facility] Comment on above: Performed By: #### 6 793-4, 88491-6, 2156-6, BMP, FEPR, CBCA #### [facility] ([id number]) [address] [address] MCHC (RBC) [Mass/Vol] 34.0 g/dL Normal 32-36 [facility] Comment on above: Performed By: #### 6 793-4, 04957-6, 2156-6, BMP, FEPR, CBCA #### [facility] ([id number]) [address] [address] MCV (RBC) [Entitic vol] 90 fL Normal 80-100 [facility] Comment on above: Performed By: #### 6 793-4, 02984-5, 2156-6, BMP, FEPR, CBCA #### [facility] ([id number]) [address] [address] Monocytes (Bld) [#/Vol] 0.9 10*3/uL Normal 0-0.9 [facility] Comment on above: Performed By: #### 6 793-4, 73528-1, 2156-6, BMP, FEPR, CBCA #### [facility] ([id number]) [address] [address] Monocytes/100 WBC (Bld) 10.0 % Normal [facility] Comment on above: Performed By: #### 6 793-4, 37090-4, 2156-6, BMP, FEPR, CBCA #### [facility] ([id number]) [address] [address] Neutrophils/100 WBC (Bld) 75.3 % Normal [facility] Comment on above: Performed By: #### 6 793-4, 95165-0, 2156-6, BMP, FEPR, CBCA #### [facility] ([id number]) [address], [facility] [address] [place] [address] Platelet mean volume (Bld) [Entitic vol] 6.7 fL Low 7-12 [facility] Comment on above: Performed By: #### 6 793-4, 26954-5, 2156-6, BMP, FEPR, CBCA #### [facility] ([id number]) [address], [address] [address] Platelets (Bld) [#/Vol] 296 10*3/uL Normal 150-450 [facility] Comment on above: Performed By: #### 6 793-4, 45212-9, 2157-01, BMP, FEPR, CBCA #### [facility] ([id number]) [address] [address] RBC COUNT 2.37 X10E12/L Low 3.80-5.20 [facility] Comment on above: Performed By: #### 6 793-4, 42817-7, 2157-01, BMP, FEPR, CBCA #### [facility] ([id number]) [address] [address] WBC (Bld) [#/Vol] 8.5 10*3/uL Normal 4.0-11.0 [facility] Comment on above: Performed By: #### 6 793-4, 48670-1, 6, BMP, FEPR, CBCA #### [facility] ([id number]) [address] [address] [place] [address] MAGNESIUMon 11-11-2023 Magnesium [Mass/Vol] 2.2 mg/dL Normal 1.8-2.6 [facility] Comment on above: Performed By: #### 6 793-4, 15254-2, 2156-6, BMP, FEPR, CBCA #### [facility] ([id number]) [address], [address] [place] [address] Magnesium [Mass/Vol] 1.6 mg/dL Low 1.8-2.6 [facility] Comment on above: Performed By: #### 6 793-4, 05946-2, 2156-6, BMP, FEPR, CBCA #### [facility] ([id number]) [address], [address] [place] [address] POTASSIUMon 11-11-2023 Potassium [Moles/Vol] 3.9 mmol/L Normal 3.5-5.0 [facility] Comment on above: Performed By: #### 6 793-4, 75397-8, 2157-01, BMP, FEPR, CBCA #### [facility] ([id number]) [address], [address] [place] [address] BASIC METABOLIC PANLon 11-09 Anion gap [Moles/Vol] 9 mmol/L Normal 5-15 [facility] Comment on above: Performed By: #### 6 793-4, 81297-7, 6, BMP, FEPR, CBCA #### [facility] ([id number]) [address], [address] [place] [address] Calcium [Mass/Vol] 8.0 mg/dL Low 8.5-10.5 [facility] Comment on above: Performed By: #### 6 793-4, 08091-9, 2156-6, BMP, FEPR, CBCA #### [facility] ([id number]) [address], [address] [place] [address] Chloride [Moles/Vol] 96 mmol/L Low 98-109 [facility] Comment on above: Performed By: #### 6 793-4, 55500-0, 215-6, BMP, FEPR, CBCA #### [facility] ([id number]) [address] [address] [place] [address] CO2 [Moles/Vol] 28 mmol/L Normal 22-32 [facility] Comment on above: Performed By: #### 6 793-4, 02000-0, 2156-6, BMP, FEPR, CBCA #### [facility] ([id number]) [address] [address] Creatinine [Mass/Vol] 0.65 mg/dL Normal 0.40-1.00 [facility] Comment on above: Result Comment: METH OD TRACEABLE TO IDMS STANDARD Performed By: #### 6 793-4, 22108-5, 6, BMP, FEPR, CBCA #### [facility] ([id number]) [address] [address] eGFR (CKD-EPI) NON-RACE DEPENDENT >90 Normal >59 [facility] Comment on above: Result Comment: Reported eGFR is based on the CKD-EPI 2020 equation that does not use a race coefficient. Performed By: #### 6 793-4, 13158-0, 2156-6, BMP, FEPR, CBCA #### [facility] ([id number]) [address] [address] Glucose [Mass/Vol] 136 mg/dL High 65-99 [facility] Comment on above: Performed By: #### 6 793-4, 88078-4, 2156-6, BMP, FEPR, CBCA #### [facility] ([id number]) [address] [address] Potassium [Moles/Vol] 3.6 mmol/L Normal 3.5-5.0 [facility] Comment on above: Performed By: #### 6 793-4, 60964-2, 215-6, BMP, FEPR, CBCA #### [facility] ([id number]) [address] [address] Sodium [Moles/Vol] 133 mmol/L Low 134-146 [facility] Comment on above: Performed By: #### 6 793-4, 09781-5, 6, BMP, FEPR, CBCA #### [facility] ([id number]) [address] [address] Urea nitrogen [Mass/Vol] 14 mg/dL Normal 5-23 [facility] Comment on above: Performed By: #### 6 793-4, 26001-1, 6, BMP, FEPR, CBCA #### [facility] ([id number]) [address] [address] COMPLETE BLOOD COUNTon 11-09 Erythrocyte distribution width (RBC) [Ratio] 14.0 % Normal 11.5-15.0 [facility] Comment on above: Performed By: #### 6 793-4, 49777-4, 2157-01, BMP, FEPR, CBCA #### [facility] ([id number]) [address] [address] Hematocrit (Bld) [Volume fraction] 22.8 % Low 35-47 [facility] Comment on above: Performed By: #### 6 793-4, 02664-5, 6, BMP, FEPR, CBCA #### [facility] ([id number]) [address] [address] Hemoglobin (Bld) [Mass/Vol] 7.5 g/dL Low 11.7-15.5 [facility] Comment on above: Performed By: #### 6 793-4, 68599-3, 6, BMP, FEPR, CBCA #### [facility] ([id number]) [address] [address] MCH (RBC) [Entitic mass] 29.8 pg Normal 27-34 [facility] Comment on above: Performed By: #### 6 793-4, 08637-7, 2156-6, BMP, FEPR, CBCA #### [facility] ([id number]) [address], [address] [place] [address] MCHC (RBC) [Mass/Vol] 32.8 g/dL Normal 32-36 [facility] Comment on above: Performed By: #### 6 793-4, 96086-5, 215-6, BMP, FEPR, CBCA #### [facility] ([id number]) [address], [facility] [address] [place] [address] MCV (RBC) [Entitic vol] 91 fL Normal 80-100 [facility] Comment on above: Performed By: #### 6 793-4, 21795-4, 2156-6, BMP, FEPR, CBCA #### [facility] ([id number]) [address], [address] [place] [address] Platelet mean volume (Bld) [Entitic vol] 6.8 fL Low 7-12 [facility] Comment on above: Performed By: #### 6 793-4, 55895-6, 2156-6, BMP, FEPR, CBCA #### [facility] ([id number]) [address], [address] [place] [address] Platelets (Bld) [#/Vol] 318 10*3/uL Normal 150-450 [facility] Comment on above: Performed By: #### 6 793-4, 62812-5, 2156-6, BMP, FEPR, CBCA #### [facility] ([id number]) [address], [address] [place] [address] RBC COUNT 2.51 X10E12/L Low 3.80-5.20 [facility] Comment on above: Performed By: #### 6 793-4, 26234-5, 2157-6, BMP, FEPR, CBCA #### [facility] ([id number]) [address], [facility] [address] [place] [address] WBC (Bld) [#/Vol] 9.9 10*3/uL Normal 4.0-11.0 [facility] Comment on above: Performed By: #### 6 793-4, 01080-3, 215-6, BMP, FEPR, CBCA #### [facility] ([id number]) [address], [facility] [address] [place] [address] FERRITINon 11-10-2023 Ferritin [Mass/Vol] 92 ng/mL Normal 11-307 [facility] Comment on above: Performed By: #### 6 793-4, 14362-0, 2156-6, BMP, FEPR, CBCA #### [facility] ([id number]) [address], [address] [address] Folate [Mass/Vol]on 11-10-19 24 FOLIC ACID 9.1 ng/mL Normal >5.8 [facility] Comment on above: Result Comment: NEW REFERENCE RANGE Performed By: #### 6 793-4, 87645-2, 2156-6, BMP, FEPR, CBCA #### [facility] ([id number]) [address], [address] [address] IRON PROFILEon 11-10-2023 Iron [Mass/Vol] ug/dL Low 50-170 [facility] Comment on above: Performed By: #### 6 793-4, 42344-8, 215-6, BMP, FEPR, CBCA #### [facility] ([id number]) [address] [address] IRON BINDING 273 ug/dL Normal 250-425 [facility] Comment on above: Performed By: #### 6 793-4, 15433-9, 215-6, BMP, FEPR, CBCA #### [facility] ([id number]) [address], [address] [place] [address] IRON SATURATION <4 Low 15-50 [facility] Comment on above: Performed By: #### 6 793-4, 57300-0, 2157-6, BMP, FEPR, CBCA #### [facility] ([id number]) [address], [address] [place] [address] Reticulocytes/100 RBC (Bld)o n 11-10-2023 RETICULOCYTE COUNT 2.8 % High 0.4-2.2 [facility] Comment on above: Performed By: #### 6 793-4, 48633-2, 215-6, BMP, FEPR, CBCA #### [facility] ([id number]) [address], [address] [place] [address] VITAMIN B12on 11-10-2023 Cobalamin (Vitamin B12) [Mass/Vol] 133 pg/mL Low 180-914 [facility] Comment on above: Performed By: #### 6 793-4, 22482-5, 7-6, BMP, FEPR, CBCA #### [facility] ([id number]) [address], [address] [place] [address] XR ANKLE LT MIN 3 VWSon 10-22 [...] Bai MD on 11/10/2023 4:45 PM Normal [facility] [id number] 11-09-2023 [id number] DATE OF VISIT: 11/09/2023 PREOPERATIVE DIAGNOSIS: Periprosthetic left femur fracture around pre-existing left total hip arthroplasty (M97.02XA). POSTOPERATIVE DIAGNOSIS: 1. Periprosthetic left femur fracture around pre-existing left total hip arthroplasty (M97.02XA). 2. Morbid obesity, with a body mass index of 41.6. OPERATION PERFORMED: 1. Revision left total hip arthroplasty (24036), utilizing the following components from [employer]: a. Biomet, G7 [place] Titanium acetabular shell, multi- hole, 48 mm [...] 2. Application of negative pressure therapy dressing, [facility] wound VAC (90236.59). SURGEON: Jalen Pierce MD. PRESSING DEPARTMENT SUPERVISOR: Christy Martinez, PGY-4, orthopedic surgery resident from the [facility]. ANESTHESIA: General. ESTIMATED BLOOD LOSS: 1150 mL. FLUIDS: 675 mL of autologous red blood cells from the [employer], 3700 mL of crystalloid, 750 mL of 5% albumin. URINARY OUTPUT: 1350 mL. POSTOPERATIVE DRAINS: 1 closed suction 10-[place] Hemovac drain brought out through a small separate stab incision anterior to the surgical wound. INDICATIONS: Og Badillo is a 58-year-old woman who had a left total hip arthroplasty performed by an orthopedic surgeon in the [place], [place] area about 3 weeks ago. Over [...] Intramedullary reaming (more content not included)... Normal [facility] ANAEROBE CULTUREon Bacteria identified Anaer cx Nom (Unsp spec) SPECIMEN NOTES SPECIMEN B CULTURE RESULTS NO GROWTH 14 DAYS Normal [facility] Comment on above: Performed By: #### 6 793-4, 13555-2, 2156-6, BMP, FEPR, CBCA #### [facility] ([id number]) [address], [address] [place] [address] Bacteria identified Anaer cx Nom (Unsp spec) SPECIMEN NOTES SPECIMEN A CULTURE RESULTS NO GROWTH 14 DAYS Normal [facility] Comment on above: Performed By: #### 6 793-4, 39072-1, 2156-6, BMP, FEPR, CBCA #### [facility] ([id number]) [address], [address] [place] [address] BASIC METABOLIC PANLon 11-08 Anion gap [Moles/Vol] 9 mmol/L Normal 5-15 [facility] Comment on above: Performed By: #### 6 793-4, 33587-8, 2156-6, BMP, FEPR, CBCA #### [facility] ([id number]) [address], [address] [place] [address] Calcium [Mass/Vol] 9.0 mg/dL Normal 8.5-10.5 [facility] Comment on above: Performed By: #### 6 793-4, 52445-9, 2157-6, BMP, FEPR, CBCA #### [facility] ([id number]) [address], [address] [place] [address] Chloride [Moles/Vol] 97 mmol/L Low 98-109 [facility] Comment on above: Performed By: #### 6 793-4, 21934-0, 2157-6, BMP, FEPR, CBCA #### [facility] ([id number]) [address], [facility] [address] [place] [address] CO2 [Moles/Vol] 30 mmol/L Normal 22-32 [facility] Comment on above: Performed By: #### 6 793-4, 18181-2, 2157-6, BMP, FEPR, CBCA #### [facility] ([id number]) [address] [address] Creatinine [Mass/Vol] 0.70 mg/dL Normal 0.40-1.00 [facility] Comment on above: Result Comment: METH OD TRACEABLE TO IDMS STANDARD Performed By: #### 6 793-4, 66511-1, 2157-6, BMP, FEPR, CBCA #### [facility] ([id number]) [address] [address] eGFR (CKD-EPI) NON-RACE DEPENDENT >90 Normal >59 [facility] Comment on above: Result Comment: Reported eGFR is based on the CKD-EPI 2020 equation that does not use a race coefficient. Performed By: #### 6 793-4, 50426-5, 2157-6, BMP, FEPR, CBCA #### [facility] ([id number]) [address] [address] [place] [address] Glucose [Mass/Vol] 110 mg/dL High 65-99 [facility] Comment on above: Performed By: #### 6 793-4, 15527-1, 2157-6, BMP, FEPR, CBCA #### [facility] ([id number]) [address] [address] [place] [address] Potassium [Moles/Vol] 3.6 mmol/L Normal 3.5-5.0 [facility] Comment on above: Performed By: #### 6 793-4, 21476-5, 2156-6, BMP, FEPR, CBCA #### [facility] ([id number]) [address], [facility] [address] [place] [address] Sodium [Moles/Vol] 136 mmol/L Normal 134-146 [facility] Comment on above: Performed By: #### 6 793-4, 98084-2, 6, BMP, FEPR, CBCA #### [facility] ([id number]) [address], [facility] [address] [place] [address] Urea nitrogen [Mass/Vol] 11 mg/dL Normal 5-23 [facility] Comment on above: Performed By: #### 6 793-4, 76148-9, 6, BMP, FEPR, CBCA #### [facility] ([id number]) [address], [address] [address] COMPLETE BLOOD COUNTon 11-08 Erythrocyte distribution width (RBC) [Ratio] 14.6 % Normal 11.5-15.0 [facility] Comment on above: Performed By: #### 6 793-4, 93555-1, 2156-6, BMP, FEPR, CBCA #### [facility] ([id number]) [address] [address] [place] [address] Hematocrit (Bld) [Volume fraction] 29.9 % Low 35-47 [facility] Comment on above: Performed By: #### 6 793-4, 40850-3, 6, BMP, FEPR, CBCA #### [facility] ([id number]) [address] [address] [place] [address] Hemoglobin (Bld) [Mass/Vol] 9.9 g/dL Low 11.7-15.5 [facility] Comment on above: Performed By: #### 6 793-4, 47660-7, 6, BMP, FEPR, CBCA #### [facility] ([id number]) [address], [address] [place] [address] MCH (RBC) [Entitic mass] 30.1 pg Normal 27-34 [facility] Comment on above: Performed By: #### 6 793-4, 68383-9, 2156-6, BMP, FEPR, CBCA #### [facility] ([id number]) [address], [address] [place] [address] MCHC (RBC) [Mass/Vol] 33.3 g/dL Normal 32-36 [facility] Comment on above: Performed By: #### 6 793-4, 06291-8, 2157-01, BMP, FEPR, CBCA #### [facility] ([id number]) [address], [address] [place] [address] MCV (RBC) [Entitic vol] 91 fL Normal 80-100 [facility] Comment on above: Performed By: #### 6 793-4, 55059-4, 2157-01, BMP, FEPR, CBCA #### [facility] ([id number]) [address], [address] [place] [address] Platelet mean volume (Bld) [Entitic vol] 6.8 fL Low 7-12 [facility] Comment on above: Performed By: #### 6 793-4, 85463-3, 2156-6, BMP, FEPR, CBCA #### [facility] ([id number]) [address], [address] [place] [address] Platelets (Bld) [#/Vol] 327 10*3/uL Normal 150-450 [facility] Comment on above: Performed By: #### 6 793-4, 69320-8, 2156-6, BMP, FEPR, CBCA #### [facility] ([id number]) [address], [address] [address] RBC COUNT 3.30 X10E12/L Low 3.80-5.20 [facility] Comment on above: Performed By: #### 6 793-4, 08831-7, 2156-6, BMP, FEPR, CBCA #### [facility] ([id number]) [address] [address] WBC (Bld) [#/Vol] 6.1 10*3/uL Normal 4.0-11.0 [facility] Comment on above: Performed By: #### 6 793-4, 85634-0, 2156-6, BMP, FEPR, CBCA #### [facility] ([id number]) [address] [address] FLUID CULTUREon 11-09-2023 Bacteria identified Aer cx Nom (Body fld) SPECIMEN NOTES SPECIMEN A GRAM STAIN WHITE BLOOD CELLS PRESENT NO ORGANISMS SEEN ON DIRECT SMEAR FLUID TOO BLOODY TO CONCENTRATE. INTERPRET RESULTS WITH CAUTION A Negative report does not exclude the possibility of infection because results are dependent on adequate specimen collection. CULTURE RESULTS NO GROWTH 5 DAYS Normal [facility] Comment on above: Performed By: #### 6 793-4, 07873-3, 2156-6, BMP, FEPR, CBCA #### [facility] ([id number]) [address] [address] [address] FUNGAL CULTUREon 11-09-2023 Fungus identified Cx Nom (Unsp spec) SPECIMEN NOTES SPECIMEN B FUNGAL SMEAR NO FUNGAL ELEMENTS SEEN ON DIRECT SMEAR CULTURE RESULTS NO FUNGUS ISOLATED AFTER 4 WEEKS Normal [facility] Comment on above: Performed By: #### 6 793-4, 30093-7, 2157-6, BMP, FEPR, CBCA #### [facility] ([id number]) [address] [address] Fungus identified Cx Nom (Unsp spec) SPECIMEN NOTES SPECIMEN A FUNGAL SMEAR NO FUNGAL ELEMENTS SEEN ON CONCENTRATED SMEAR CULTURE RESULTS NO FUNGUS ISOLATED AFTER 4 WEEKS Normal [facility] Comment on above: Performed By: #### 6 793-4, 95255-0, 2157-6, BMP, FEPR, CBCA #### [facility] ([id number]) [address] [address] RAPID CARDIACon 11-09-2023 RILEY'S TEST Normal [facility] Comment on above: Performed By: #### 6 793-4, 11819-5, 2156-6, BMP, FEPR, CBCA #### [facility] ([id number]) [address] [address] Base excess Calc (Bld) [Moles/Vol] 2.5 mmol/L High 0.0-2.0 [facility] Comment on above: Performed By: #### 6 793-4, 09485-6, 2156-6, BMP, FEPR, CBCA #### [facility] ([id number]) [address] [address] Body temperature 98.6 [degF] Normal 37.[address] [facility] Comment on above: Performed By: #### 6 793-4, 68277-9, 2157-6, BMP, FEPR, CBCA #### [facility] ([id number]) [address] [address] Glucose [Mass/Vol] 125 mg/dL High 65-99 [facility] Comment on above: Performed By: #### 6 793-4, 78827-8, 2157-6, BMP, FEPR, CBCA #### [facility] ([id number]) [address] [address] HCO3 (Bld) [Moles/Vol] 28.1 mmol/L High 22-26 [facility] Comment on above: Performed By: #### 6 793-4, 76030-0, 2156-6, BMP, FEPR, CBCA #### [facility] ([id number]) [address] [place] [address] Hematocrit (Bld) [Volume fraction] 26 % Low 35-47 [facility] Comment on above: Performed By: #### 6 793-4, 18957-8, 2156-6, BMP, FEPR, CBCA #### [facility] ([id number]) [address], [facility] [address] [place] [address] Hemoglobin (Bld) [Mass/Vol] 8.6 g/dL Low 11.7-15.5 [facility] Comment on above: Performed By: #### 6 793-4, 03843-4, 2156-6, BMP, FEPR, CBCA #### [facility] ([id number]) [address], [address] [place] [address] INSP. O2 CONC. 100 % Normal [facility] Comment on above: Performed By: #### 6 793-4, 22990-4, 6, BMP, FEPR, CBCA #### [facility] ([id number]) [address], [address] [place] [address] IONIZED CALCIUM 4.7 mg/dL Normal 4.5-5.3 [facility] Comment on above: Performed By: #### 6 793-4, 66715-7, 2156-6, BMP, FEPR, CBCA #### [facility] ([id number]) [address], [address] [place] [address] Oxygen (Bld) [Partial pressure] 147 mm[Hg] High 80-100 [facility] Comment on above: Performed By: #### 6 793-4, 47944-6, 2156-6, BMP, FEPR, CBCA #### [facility] ([id number]) [address], [facility] [address] [place] [address] Oxygen saturation in Blood 100.2 % Normal >90 [facility] Comment on above: Performed By: #### 6 793-4, 25143-0, 6, BMP, FEPR, CBCA #### [facility] ([id number]) [address], [facility] [address] [place] [address] PCO2 50.8 MMHG High 35-45 [facility] Comment on above: Performed By: #### 6 793-4, 73566-1, 2157-01, BMP, FEPR, CBCA #### [facility] ([id number]) [address], [facility] [address] [place] [address] pH (Bld) 7.351 [pH] Normal 7.350-7.450 [facility] Comment on above: Performed By: #### 6 793-4, 85460-0, 2157-01, BMP, FEPR, CBCA #### [facility] ([id number]) [address], [facility] [address] [place] [address] Potassium [Moles/Vol] 3.4 mmol/L Low 3.5-5.0 [facility] Comment on above: Performed By: #### 6 793-4, 67862-1, 6, BMP, FEPR, CBCA #### [facility] ([id number]) [address], [address] [place] [address] SAMPLE SITE NABILA Normal [facility] Comment on above: Performed By: #### 6 793-4, 84623-3, 6, BMP, FEPR, CBCA #### [facility] ([id number]) [address], [facility] [address] [place] [address] SAMPLE TYPE Arterial Normal [facility] Comment on above: Performed By: #### 6 793-4, 16183-0, 2157-6, BMP, FEPR, CBCA #### [facility] ([id number]) [address], [address] [place] [address] TISSUE CULTUREon 11-09-2023 Bacteria identified Aer cx Nom (Tiss) SPECIMEN NOTES SPECIMEN B GRAM STAIN 0 WHITE BLOOD CELLS/LPF 0 SQUAMOUS EPITHELIAL CELLS/LPF NO ORGANISMS SEEN CULTURE RESULTS NO GROWTH 3 DAYS Normal [facility] Comment on above: Performed By: #### 6 793-4, 72195-3, 2157-6, BMP, FEPR, CBCA #### [facility] ([id number]) [address], [address] [place] [address] XR ANKLE RT MIN 3 VWSon 10-22 [...] Bai MD on 11/09/2023 10:14 PM Normal [facility] XR FEMUR LT 2+ VIEWSon 11-08 XR FEMUR LT 2+ VIEWS XR FEMUR LT 2+ VIEW S XR FEMUR LT 2+ VIEWS HISTORY: Postop eval. AP and lateral. COMPARISON: 11/07/2023. IMPRESSION: Revision arthroplasty with long femoral stem, multiple proximal femoral cerclage wires. Cutaneous nora. Finalized by Jose Bai MD on 11/09/2023 10:13 PM Normal [facility] XR HIP LT 2-3 VIEWS W OR WO PELVISon 11-09-2023 XR HIP LT 2-3 VIEWS W OR WO PELVIS XR HIP LT 2-3 VIEWS W OR WO PELVIS CLINICAL INFORMATION: total left hip revision in OR 5 IMPRESSION: * Intraoperative fluoroscopy provided. The reference air kerma was 35.01 mGy. Finalized by Lan Claire MD on 11/09/2023 4:29 PM Normal [facility] XR PELVIS MIN 3 VWSon 2023 XR PELVIS MIN 3 VWS XR PELVIS MIN 3 VWS XR PELVIS MIN 3 VWS HISTORY: Postop eval. AP, 2 judet views please. COMPARISON: 11/07/2023. IMPRESSION: No displaced or pelvic fracture. Bilateral femoral arthroplasties, cerclage wires transfixing subtrochanteric left femoral fracture.. Finalized by Jose Bai MD on 11/09/2023 10:13 PM Normal [facility] BASIC METABOLIC PANLon 11-07 Anion gap [Moles/Vol] 11 mmol/L Normal 5-15 [facility] Comment on above: Performed By: #### 6 793-4, 08313-3, 2156-6, BMP, FEPR, CBCA #### [facility] ([id number]) [address], [address] [place] [address] Calcium [Mass/Vol] 8.9 mg/dL Normal 8.5-10.5 [facility] Comment on above: Performed By: #### 6 793-4, 69646-6, 2156-6, BMP, FEPR, CBCA #### [facility] ([id number]) [address], [address] [place] [address] Chloride [Moles/Vol] 98 mmol/L Normal 98-109 [facility] Comment on above: Performed By: #### 6 793-4, 79419-8, 2156-6, BMP, FEPR, CBCA #### [facility] ([id number]) [address], [address] [place] [address] CO2 [Moles/Vol] 26 mmol/L Normal 22-32 [facility] Comment on above: Performed By: #### 6 793-4, 95551-1, 215-6, BMP, FEPR, CBCA #### [facility] ([id number]) [address] [address] Creatinine [Mass/Vol] 0.73 mg/dL Normal 0.40-1.00 [facility] Comment on above: Result Comment: METH OD TRACEABLE TO IDMS STANDARD Performed By: #### 6 793-4, 48299-3, 2157-6, BMP, FEPR, CBCA #### [facility] ([id number]) [address] [address] eGFR (CKD-EPI) NON-RACE DEPENDENT >90 Normal >59 [facility] Comment on above: Result Comment: Reported eGFR is based on the CKD-EPI 2020 equation that does not use a race coefficient. Performed By: #### 6 793-4, 73244-2, 2156-6, BMP, FEPR, CBCA #### [facility] ([id number]) [address] [address] Glucose [Mass/Vol] 131 mg/dL High 65-99 [facility] Comment on above: Performed By: #### 6 793-4, 48493-5, 2156-6, BMP, FEPR, CBCA #### [facility] ([id number]) [address] [address] Potassium [Moles/Vol] 4.0 mmol/L Normal 3.5-5.0 [facility] Comment on above: Performed By: #### 6 793-4, 51035-3, 2156-6, BMP, FEPR, CBCA #### [facility] ([id number]) [address] [address] Sodium [Moles/Vol] 135 mmol/L Normal 134-146 [facility] Comment on above: Performed By: #### 6 793-4, 68922-8, 2157-6, BMP, FEPR, CBCA #### [facility] ([id number]) [address] [address] [place] [address] Urea nitrogen [Mass/Vol] 9 mg/dL Normal 5-23 [facility] Comment on above: Performed By: #### 6 793-4, 62391-8, 2157-6, BMP, FEPR, CBCA #### [facility] ([id number]) [address] [address] [place] [address] COMPLETE BLOOD COUNTon 11-07 Erythrocyte distribution width (RBC) [Ratio] 14.1 % Normal 11.5-15.0 [facility] Comment on above: Performed By: #### 6 793-4, 13358-2, 2156-6, BMP, FEPR, CBCA #### [facility] ([id number]) [address] [address] [place] [address] Hematocrit (Bld) [Volume fraction] 31.2 % Low 35-47 [facility] Comment on above: Performed By: #### 6 793-4, 31612-4, 2156-6, BMP, FEPR, CBCA #### [facility] ([id number]) [address] [address] Hemoglobin (Bld) [Mass/Vol] 10.2 g/dL Low 11.7-15.5 [facility] Comment on above: Performed By: #### 6 793-4, 09322-1, 2156-6, BMP, FEPR, CBCA #### [facility] ([id number]) [address] [address] MCH (RBC) [Entitic mass] 30.1 pg Normal 27-34 [facility] Comment on above: Performed By: #### 6 793-4, 70336-2, 2157-6, BMP, FEPR, CBCA #### [facility] ([id number]) [address] [address] [place] [address] MCHC (RBC) [Mass/Vol] 32.7 g/dL Normal 32-36 [facility] Comment on above: Performed By: #### 6 793-4, 16562-4, 2156-6, BMP, FEPR, CBCA #### [facility] ([id number]) [address] [address] MCV (RBC) [Entitic vol] 92 fL Normal 80-100 [facility] Comment on above: Performed By: #### 6 793-4, 10420-1, 2156-6, BMP, FEPR, CBCA #### [facility] ([id number]) [address] [address] Platelet mean volume (Bld) [Entitic vol] 6.8 fL Low 7-12 [facility] Comment on above: Performed By: #### 6 793-4, 81866-5, 2156-6, BMP, FEPR, CBCA #### [facility] ([id number]) [address] [address] Platelets (Bld) [#/Vol] 332 10*3/uL Normal 150-450 [facility] Comment on above: Performed By: #### 6 793-4, 64877-6, 2156-6, BMP, FEPR, CBCA #### [facility] ([id number]) [address] [address] RBC COUNT 3.39 X10E12/L Low 3.80-5.20 [facility] Comment on above: Performed By: #### 6 793-4, 40308-2, 2156-6, BMP, FEPR, CBCA #### [facility] ([id number]) [address] [address] WBC (Bld) [#/Vol] 6.6 10*3/uL Normal 4.0-11.0 [facility] Comment on above: Performed By: #### 6 793-4, 45638-5, 2156-6, BMP, FEPR, CBCA #### [facility] ([id number]) [address], [address] [place] [address] MAGNESIUMon 11-08-2023 Magnesium [Mass/Vol] 2.1 mg/dL Normal 1.8-2.6 [facility] Comment on above: Performed By: #### 6 793-4, 79635-0, 2156-6, BMP, FEPR, CBCA #### [facility] ([id number]) [address], [address] [place] [address] BASIC METABOLIC PANLon 11-06 Anion gap [Moles/Vol] 10 mmol/L Normal 5-15 [facility] Comment on above: Performed By: #### 6 793-4, 10046-1, 2156-6, BMP, FEPR, CBCA #### [facility] ([id number]) [address], [address] [place] [address] Calcium [Mass/Vol] 8.8 mg/dL Normal 8.5-10.5 [facility] Comment on above: Performed By: #### 6 793-4, 98093-0, 2156-6, BMP, FEPR, CBCA #### [facility] ([id number]) [address], [address] [place] [address] Chloride [Moles/Vol] 102 mmol/L Normal 98-109 [facility] Comment on above: Performed By: #### 6 793-4, 97210-5, 2156-6, BMP, FEPR, CBCA #### [facility] ([id number]) [address], [address] [place] [address] CO2 [Moles/Vol] 28 mmol/L Normal 22-32 [facility] Comment on above: Performed By: #### 6 793-4, 73706-5, 6, BMP, FEPR, CBCA #### [facility] ([id number]) [address] [address] [place] [address] Creatinine [Mass/Vol] 0.62 mg/dL Normal 0.40-1.00 [facility] Comment on above: Result Comment: METH OD TRACEABLE TO IDMS STANDARD Performed By: #### 6 793-4, 22300-6, 6, BMP, FEPR, CBCA #### [facility] ([id number]) [address] [address] [place] [address] eGFR (CKD-EPI) NON-RACE DEPENDENT >90 Normal >59 [facility] Comment on above: Result Comment: Reported eGFR is based on the CKD-EPI 2020 equation that does not use a race coefficient. Performed By: #### 6 793-4, 80819-9, 2157-01, BMP, FEPR, CBCA #### [facility] ([id number]) [address] [address] Glucose [Mass/Vol] 127 mg/dL High 65-99 [facility] Comment on above: Performed By: #### 6 793-4, 59618-2, 2157-01, BMP, FEPR, CBCA #### [facility] ([id number]) [address] [address] [place] [address] Potassium [Moles/Vol] 4.0 mmol/L Normal 3.5-5.0 [facility] Comment on above: Performed By: #### 6 793-4, 92018-0, 6, BMP, FEPR, CBCA #### [facility] ([id number]) [address] [address] [place] [address] Sodium [Moles/Vol] 140 mmol/L Normal 134-146 [facility] Comment on above: Performed By: #### 6 793-4, 21300-3, 2157-01, BMP, FEPR, CBCA #### [facility] ([id number]) [address] [address] Urea nitrogen [Mass/Vol] 8 mg/dL Normal 5-23 [facility] Comment on above: Performed By: #### 6 793-4, 23837-5, 6, BMP, FEPR, CBCA #### [facility] ([id number]) [address] [address] CBC AND AUTO DIFFon 11-07-19 24 ABSOLUTE BASOPHIL 0.0 X10E9/L Normal 0.0-0.2 [facility] Comment on above: Performed By: #### 6 793-4, 51322-7, 2157-01, BMP, FEPR, CBCA #### [facility] ([id number]) [address] [address] ABSOLUTE NEUTROPHIL 5.7 X10E9/L Normal 1.5-6.6 [facility] Comment on above: Performed By: #### 6 793-4, 04552-4, 2157-01, BMP, FEPR, CBCA #### [facility] ([id number]) [address] [address] Basophils/100 WBC (Bld) 0.3 % Normal [facility] Comment on above: Performed By: #### 6 793-4, 22398-0, 2157-01, BMP, FEPR, CBCA #### [facility] ([id number]) [address] [address] Eosinophils (Bld) [#/Vol] 0.0 10*3/uL Normal 0.0-0.4 [facility] Comment on above: Performed By: #### 6 793-4, 71340-2, 6, BMP, FEPR, CBCA #### [facility] ([id number]) [address] [address] [place] [address] Eosinophils/100 WBC (Bld) 0.3 % Normal [facility] Comment on above: Performed By: #### 6 793-4, 72432-9, 2156-6, BMP, FEPR, CBCA #### [facility] ([id number]) [address] [address] [place] [address] Erythrocyte distribution width (RBC) [Ratio] 14.2 % Normal 11.5-15.0 [facility] Comment on above: Performed By: #### 6 793-4, 26794-0, 2157-01, BMP, FEPR, CBCA #### [facility] ([id number]) [address] [address] Hematocrit (Bld) [Volume fraction] 31.3 % Low 35-47 [facility] Comment on above: Performed By: #### 6 793-4, 86530-8, 2157-01, BMP, FEPR, CBCA #### [facility] ([id number]) [address] [address] Hemoglobin (Bld) [Mass/Vol] 10.5 g/dL Low 11.7-15.5 [facility] Comment on above: Performed By: #### 6 793-4, 30211-0, 2157-01, BMP, FEPR, CBCA #### [facility] ([id number]) [address] [address] Lymphocytes (Bld) [#/Vol] 0.7 10*3/uL Low 1.0-3.5 [facility] Comment on above: Performed By: #### 6 793-4, 20196-1, 6, BMP, FEPR, CBCA #### [facility] ([id number]) [address] [address] Lymphocytes/100 WBC (Bld) 9.5 % Normal [facility] Comment on above: Performed By: #### 6 793-4, 40485-9, 2157-01, BMP, FEPR, CBCA #### [facility] ([id number]) [address] [place] [address] MCH (RBC) [Entitic mass] 30.4 pg Normal 27-34 [facility] Comment on above: Performed By: #### 6 793-4, 65677-5, 2157-01, BMP, FEPR, CBCA #### [facility] ([id number]) [address], [facility] [address] [place] [address] MCHC (RBC) [Mass/Vol] 33.6 g/dL Normal 32-36 [facility] Comment on above: Performed By: #### 6 793-4, 17627-1, 2157-01, BMP, FEPR, CBCA #### [facility] ([id number]) [address], [facility] [address] [place] [address] MCV (RBC) [Entitic vol] 90 fL Normal 80-100 [facility] Comment on above: Performed By: #### 6 793-4, 72820-2, 2157-01, BMP, FEPR, CBCA #### [facility] ([id number]) [address], [facility] [address] [place] [address] Monocytes (Bld) [#/Vol] 0.6 10*3/uL Normal 0-0.9 [facility] Comment on above: Performed By: #### 6 793-4, 38544-2, 2157-01, BMP, FEPR, CBCA #### [facility] ([id number]) [address] [place] [address] Monocytes/100 WBC (Bld) 9.1 % Normal [facility] Comment on above: Performed By: #### 6 793-4, 58566-9, 2156-6, BMP, FEPR, CBCA #### [facility] ([id number]) [address], [facility] [address] [place] [address] Neutrophils/100 WBC (Bld) 80.8 % Normal [facility] Comment on above: Performed By: #### 6 793-4, 80634-9, 2156-6, BMP, FEPR, CBCA #### [facility] ([id number]) [address], [facility] [address] [place] [address] Platelet mean volume (Bld) [Entitic vol] 6.5 fL Low 7-12 [facility] Comment on above: Performed By: #### 6 793-4, 97907-0, 2156-6, BMP, FEPR, CBCA #### [facility] ([id number]) [address], [facility] [address] [place] [address] Platelets (Bld) [#/Vol] 366 10*3/uL Normal 150-450 [facility] Comment on above: Performed By: #### 6 793-4, 45822-3, 2156-6, BMP, FEPR, CBCA #### [facility] ([id number]) [address], [facility] [address] [place] [address] RBC COUNT 3.46 X10E12/L Low 3.80-5.20 [facility] Comment on above: Performed By: #### 6 793-4, 98842-6, 2156-6, BMP, FEPR, CBCA #### [facility] ([id number]) [address] [address] WBC (Bld) [#/Vol] 7.0 10*3/uL Normal 4.0-11.0 [facility] Comment on above: Performed By: #### 6 793-4, 90717-5, 2156-6, BMP, FEPR, CBCA #### [facility] ([id number]) [address] [place] [address] CK [Catalytic activity/Vol]o n 11-07-2023 CPK 35 U/L Normal 24-170 [facility] Comment on above: Performed By: #### 6 793-4, 01980-2, 2157-6, BMP, FEPR, CBCA #### [facility] ([id number]) [address], [address] [place] [address] IRON PROFILEon 11-07-2023 Iron [Mass/Vol] 67 ug/dL Normal 50-170 [facility] Comment on above: Performed By: #### 6 793-4, 06844-7, 2156-6, BMP, FEPR, CBCA #### [facility] ([id number]) [address], [address] [address] IRON BINDING 392 ug/dL Normal 250-425 [facility] Comment on above: Performed By: #### 6 793-4, 91202-8, 2156-6, BMP, FEPR, CBCA #### [facility] ([id number]) [address], [address] [place] [address] IRON SATURATION 17 % SATURATION Normal 15-50 [facility] Comment on above: Performed By: #### 6 793-4, 08722-3, 2157-6, BMP, FEPR, CBCA #### [facility] ([id number]) [address], [address] [place] [address] Prealbumin IA [Mass/Vol]on 0 11-07-2023 Prealbumin [Mass/Vol] 21 mg/dL Normal 18-45 [facility] Comment on above: Performed By: #### 6 793-4, 16152-3, 2157-6, BMP, FEPR, CBCA #### [facility] ([id number]) [address], [address] [place] [address] URINALYSISon 11-07-2023 Bilirubin Ql (U) Negative Normal NEG [facility] BLOOD/HGB Trace Abnormal NEG [facility] Color (U) YELLOW Normal YELLOW [facility] Glucose Ql (U) Negative Normal NEG [facility] Ketones Ql (U) Negative Normal NEG [facility] Leukocyte esterase Test strip Ql (U) Negative Normal NEG [facility] MUCOUS PRESENT Abnormal NONE [facility] Nitrite Ql (U) Negative Normal NEG [facility] pH (U) 6.0 [pH] Normal 5.0-8.5 [facility] Protein Ql (U) Negative Normal NEG [facility] R.B.CELLS 4 /hpf Normal 0-5 [facility] Specific gravity (U) [Rel density] 1.017 Normal 1.003-1.035 [facility] SQUAMOUS EPITHELIUM <1 Normal 0-5 [facility] TURBIDITY CLEAR Normal CLEAR [facility] Urobilinogen (U) [Mass/Vol] mg/dL Normal <1.1 [facility] W.B.CELLS 2 /hpf Normal 0-5 [facility] Vitamin D+Metabolites [Mass/ Vol]on 11-07-2023 VITAMIN D 25 HYD TOT 7.0 ng/mL Low 30-100 [facility] Comment on above: Result Comment: Vitamin D status 25 [place] Vitamin D Deficiency <20 ng/mL Insufficiency 20-29 ng/mL Sufficiency 30-100 ng/mL Toxicity >100 ng/mL NOTE: A pediatric reference range has not been established by the cyanide pot tender of this kit. The [place] [employer] recommends a Vitamin D level of = or >20ng/mL in infants and children. Performed By: #### 6 793-4, 24678-6, 2157-6, BMP, FEPR, CBCA #### [facility] ([id number]) [address], [address] [place] [address] XR CHEST 1 VWon 11-07-2023 XR CHEST [...] Ferguson MD on 11/07/2023 4:33 PM Normal [facility] XR FEMUR LT 2+ VIEWSon 11-06 XR [...] Mcneil MD on 11/07/2023 12:19 PM Normal [facility] XR PELVIS 1 OR 2 VWSon 11-06 XR PELVIS 1 OR 2 VWS XR PELVIS 1 OR 2 VW S XR PELVIS 1 OR 2 VWS HISTORY: pre-op. Pelvic pain COMPARISON: 11/07/2023. IMPRESSION: No displaced or pelvic fracture. Bilateral hip arthroplasties. Proximal femoral fracture subsidence. Finalized by Jose Bai MD on 11/07/2023 10:22 PM Normal [facility] ABO Rh Repeaton 10-15-2023 ABO O [facility] Rh Nom (Bld) [facility] XR Pelvis and Hip - left 2 [...] Reymundo Granados DO on 10/15/2023 2:45 PM [facility] Radiology Study observation (narrative) [facility] XR Pelvis and Hip - left 2 V iewsOrdered By: Reymundo Granados on 10-15-2023 [facility] Work Phone: Basic Metabolic Panelon -2 Anion gap [Moles/Vol] 13 mmol/L 5 - 15 mmol/L [facility] Calcium [Mass/Vol] 9.2 mg/dL 8.5 - 10. 5 mg/dL [facility] Chloride [Moles/Vol] 97 mmol/L Low 98 - 10 9 mmol/L [facility] CO2 [Moles/Vol] 27 mmol/L 22 - 32 mmol/L [facility] Creatinine [Mass/Vol] 0.86 mg/dL 0.40 - 1.00 mg/dL [facility] Comment on above: METHOD TRACEABLE TO IDMS STANDARD eGFR (CKD-EPI)non-race dependent 80 - PINF [facility] Comment on above: Reported eGFR is based on the CKD-EPI 2020 equation that does not use a race coefficient. Glucose [Mass/Vol] 173 mg/dL High 65 - 99 mg/dL [facility] Interpretation and review of laboratory results Abnormal [facility] Potassium [Moles/Vol] 4.1 mmol/L 3.5 - 5.0 mmol/L [facility] Sodium [Moles/Vol] 137 mmol/L 134 - 146 mmol/L [facility] Urea nitrogen [Mass/Vol] 11 mg/dL 5 - 23 mg/dL [facility] CBC auto differentialon 08-25 Basophils (Bld) [#/Vol] 0.0 10*3/uL [facility] Basophils/100 WBC (Bld) 0.4 % [facility] Eosinophils (Bld) [#/Vol] 0.1 10*3/uL [facility] Eosinophils/100 WBC (Bld) 1.2 % [facility] Erythrocyte distribution width (RBC) [Ratio] 16.0 % High 11.5 - 15.0 % [facility] Hematocrit (Bld) [Volume fraction] 42.3 % 35 - 47 % [facility] Hemoglobin (Bld) [Mass/Vol] 13.9 g/dL 11.7 - 15.5 g/dL [facility] Interpretation and review of laboratory results Abnormal [facility] Lymphocytes (Bld) [#/Vol] 1.1 10*3/uL [facility] Lymphocytes/100 WBC (Bld) 15.4 % [facility] MCH (RBC) [Entitic mass] 31.2 pg 27 - 34 pg [facility] MCHC (RBC) [Mass/Vol] 32.9 g/dL 32 - 36 g/dL [facility] MCV (RBC) [Entitic vol] 95 fL 80 - 100 fL [facility] Monocytes (Bld) [#/Vol] 0.6 10*3/uL [facility] Monocytes/100 WBC (Bld) 8.4 % [facility] Neutrophils (Bld) [#/Vol] 5.1 10*3/uL [facility] Neutrophils/100 WBC (Bld) 74.6 % [facility] Platelet mean volume (Bld) [Entitic vol] 7.0 fL 7 - 12 fL [facility] Platelets (Bld) [#/Vol] 294 10*3/uL [facility] RBC (Bld) [#/Vol] 4.46 10*6/uL [facility] WBC corrected for nucl RBC Auto (Bld) [#/Vol] 6.9 [facility] XR Chest PA and Lateralon CHEST RADIOGRAPH [...] Wes Rosales MD on 09/18/2023 11:43 AM SECTRAPAWes Freeman MD - 09/18/2023 CHEST RADIOGRAPH 09/18/2023 10:03 [...] Wes Rosales MD on 09/18/2023 11:43 AM [facility] Radiology Study observation (narrative) [facility] XR Chest PA and LateralOrder ed By: Wes Rosales on 09-18-2023 [facility] Work Phone: XR CSPINE OBL FLEX_EXTon XR [...] BERT CARTER Date: 2022-01-16 16:49 Normal [facility] CBC AUTO DIFFon 04-25-2021 BASO # 0.0 103/ul Normal 0.0-0.1 [facility] Comment on above: Performed By: #### C BC #### [facility] [address] [place], [place] [id number] Kitty Marium Basophils/100 WBC (Bld) 0.3 % Normal 0.2-2.0 [facility] Comment on above: Performed By: #### C BC #### [facility] [address] [place] [address] Kitty Marium EO # 0.0 103/ul Normal 0.0-0.7 [facility] Comment on above: Performed By: #### C BC #### [facility] [address] [place] [address] Kitty Marium Eosinophils/100 WBC (Bld) 0.5 % Critically low 0.9-7.0 [facility] Comment on above: Performed By: #### C BC #### [facility] [address] [place] [address] Kitty Marium Erythrocyte distribution width (RBC) [Ratio] 13.2 % Normal 11.0-15.0 [facility] Comment on above: Performed By: #### C BC #### [facility] [address] [place], [place] [phone] Kitty Marium Hematocrit (Bld) [Volume fraction] 45.1 % Normal 36.0-48.0 [facility] Comment on above: Performed By: #### C BC #### [facility] [address] [place], [place] [phone] Kitty Marium Hemoglobin (Bld) [Mass/Vol] 14.9 g/dL Normal 12.0-16.0 [facility] Comment on above: Performed By: #### C BC #### [facility] [address] [place] [address] Kitty Marium IG # 0.06 10e3/ul Critically high 0.00-0.03 [facility] Comment on above: Performed By: #### C BC #### [facility] [address] [id number] Kitty Causey IG % 0.7 % Critically high 0.0-0.5 [facility] Comment on above: Performed By: #### C BC #### [facility] [address] [place], [place] [phone] Kitty Causey LYMPH # 1.2 103/ul Normal 1.2-3.8 [facility] Comment on above: Performed By: #### C BC #### [facility] [address] [place], [place] [phone] Kitty Causey Lymphocytes/100 WBC (Bld) 14.4 % Critically low 20.5-60.0 [facility] Comment on above: Performed By: #### C BC #### [facility] [address] [place] [address] Kitty Causey MANUAL DIFF REQ NO Normal [facility] Comment on above: Performed By: #### C BC #### [facility] [address] [place], [place] [phone] Kitty Causey MCH (RBC) [Entitic mass] 31.6 pg Normal 26.7-34.0 [facility] Comment on above: Performed By: #### C BC #### [facility] [address] [place], [place] [phone] Kitty Causey MCHC (RBC) [Mass/Vol] 33.0 g/dL Normal 29.9-35.2 [facility] Comment on above: Performed By: #### C BC #### [facility] [address] [place], [place] [phone] Kitty Causey MCV (RBC) [Entitic vol] 95.6 fL Normal 81.0-99.0 [facility] Comment on above: Performed By: #### C BC #### [facility] [address] [place] [address] Kitty Causey MONO # 0.7 103/ul Normal 0.3-0.8 [facility] Comment on above: Performed By: #### C BC #### [facility] [address] [place], [place] [address] Kitty Causey Monocytes/100 WBC (Bld) 7.8 % Normal 1.7-12.0 [facility] Comment on above: Performed By: #### C BC #### [facility] [address] [place], [place] [address] Kitty Causey NEUT # 6.6 103/ul Critically high 1.4-6.5 [facility] Comment on above: Performed By: #### C BC #### [facility] [address] [place], [place] [address] Kitty Causey Neutrophils/100 WBC (Bld) 76.3 % Critically high 43.0-75.0 [facility] Comment on above: Performed By: #### C BC #### [facility] [address] [place], [place] [phone] Kitty Causey Platelet mean volume (Bld) [Entitic vol] 9.2 fL Critically low 9.5-13.5 [facility] Comment on above: Performed By: #### C BC #### [facility] [address] [place], [place] [address] Kitty Marium PLT 282 103/ul Normal 150-450 [facility] Comment on above: Performed By: #### C BC #### [facility] [address] [place], [place] [phone] Kitty Marium RBC 4.72 106/ul Normal 4.20-5.40 [facility] Comment on above: Performed By: #### C BC #### [facility] [address] [place] [address] Kitty Marium WBC 8.6 103/ul Normal 4.0-11.0 [facility] Comment on above: Performed By: #### C BC #### [facility] [address] [place], [place] [phone] Kitty Causey GLYCOHEMOGLOBIN A1Con 2020 ADA RECOMMENDATION ADA THERAPEUTIC TARG ET 6.0 - 7.0 ACTION SUGGESTED > 7.0 Normal [facility] Comment on above: Performed By: #### A 1C ####[facility] [address] [place], [place] [address]Eyxggb Marium Glucose [Mass/Vol] 137 mg/dL Normal [facility] Comment on above: Performed By: #### A 1C ####[facility] [address] [place], [place] [address]Nurcmx Marium HbA1c (Bld) [Mass fraction] 6.4 % Critically high <=6.0 [facility] Comment on above: Performed By: #### A 1C ####[facility] [address] [place], [place] [address]Gybwgx Mar[facility] LIPID PROFILEon 04-25-2021 CHOL-HDL RATIO NORM SEE BELOW Normal [facility] Comment on above: Result Comment: 3.3 - 4.4 LOW RISK 4.4 - 7.1 AVERAGE RISK 7.1 - 11.0 MODERATE RISK >11.0 HIGH RISK Performed By: #### B MP, LIVER, TSH, LIPID #### [facility] [address] [place], [place] [address] Kitty Marium Cholesterol [Mass/Vol] 235 mg/dL Critically high <=200 [facility] Comment on above: Performed By: #### B MP, LIVER, TSH, LIPID #### [facility] [address] [place], [place] [address] Kitty Amrium Cholesterol in HDL [Mass/Vol] 59 mg/dL Normal [facility] Comment on above: Performed By: #### B MP, LIVER, TSH, LIPID #### [facility] [address] [place], [place] [address] Kitty Marium Cholesterol in LDL [Mass/Vol] 160.0 mg/dL Normal [facility] Comment on above: Performed By: #### B MP, LIVER, TSH, LIPID #### [facility] [address] [place], [place] [address] Kitty Marium Cholesterol.total/Ch olesterol in HDL [Mass ratio] 4.0 {ratio} Normal [facility] Comment on above: Performed By: #### B MP, LIVER, TSH, LIPID #### [facility] [address] [place], [place] [address] Kitty Marium HDL NORMAL > or = 60 mg/dl - LO W CARDIOVASCULAR RISK <40 mg/dl - HIGH CARDIOVASCULAR RISK Normal [facility] Comment on above: Performed By: #### B MP, LIVER, TSH, LIPID #### [facility] [address] [phone] Kitty Marium LDL CALC NORMAL SEE BELOW Normal [facility] Comment on above: Result Comment: <100 mg/dl OPTIMAL 100 - 129 mg/dl NEAR OR ABOVE OPTIMAL 130 - 159 mg/dl BORDERLINE HIGH 160 - 189 mg/dl HIGH >190 mg/dl VERY HIGH Performed By: #### B MP, LIVER, TSH, LIPID #### [facility] [address] [id number] Kitty Marium Triglyceride [Mass/Vol] 80 mg/dL Normal <=150 [facility] Comment on above: Performed By: #### B MP, LIVER, TSH, LIPID #### [facility] [address] [phone] Kitty Marium VLDL CALC 16.0 mg/dL Normal [facility] Comment on above: Performed By: #### B MP, LIVER, TSH, LIPID #### [facility] [address] [id number] Kitty Marium LIVER PROFILEon 04-25-2021 Albumin [Mass/Vol] 3.9 g/dL Normal 3.5-5.0 [facility] Comment on above: Performed By: #### B MP, LIVER, TSH, LIPID #### [facility] [address] [id number] Kitty Marium Albumin/Globulin [Mass ratio] 1.0 {ratio} Normal [facility] Comment on above: Performed By: #### B MP, LIVER, TSH, LIPID #### [facility] [address] [id number] Kitty Marium ALP [Catalytic activity/Vol] 91 U/L Normal 38-126 [facility] Comment on above: Performed By: #### B MP, LIVER, TSH, LIPID #### [facility] [address] [id number] Kitty Marium ALT [Catalytic activity/Vol] 29 U/L Normal 9-52 [facility] Comment on above: Performed By: #### B MP, LIVER, TSH, LIPID #### [facility] [address] [place] [address] Kitty Marium AST [Catalytic activity/Vol] 24 U/L Normal 14-36 [facility] Comment on above: Performed By: #### B MP, LIVER, TSH, LIPID #### [facility] [address] [place], [place] [phone] Kitty Marium BILI, CONJUGATED 0.1 mg/dL Normal 0.0-0.3 [facility] Comment on above: Performed By: #### B MP, LIVER, TSH, LIPID #### [facility] [address] [place] [address] Kitty Marium Bilirubin [Mass/Vol] 0.5 mg/dL Normal 0.2-1.3 [facility] Comment on above: Performed By: #### B MP, LIVER, TSH, LIPID #### [facility] [address] [place] [address] Kitty Marium Globulin (S) [Mass/Vol] 4.1 g/dL Normal [facility] Comment on above: Performed By: #### B MP, LIVER, TSH, LIPID #### [facility] [address] [place] [address] Kitty Marium Protein [Mass/Vol] 8.0 g/dL Normal 6.1-8.2 [facility] Comment on above: Performed By: #### B MP, LIVER, TSH, LIPID #### [facility] [address] [place], [place] [phone] Kitty Marium PROF CHEM 8 (BAS METB)on Anion gap [Moles/Vol] 11.0 mmol/L Normal [facility] Comment on above: Performed By: #### B MP, LIVER, TSH, LIPID #### [facility] [address] [place] [address] Kitty Marium Calcium [Mass/Vol] 9.7 mg/dL Normal 8.4-10.2 [facility] Comment on above: Performed By: #### B MP, LIVER, TSH, LIPID #### [facility] [address] [address] Kitty Marium Chloride [Moles/Vol] 98 mmol/L Normal 98-107 [facility] Comment on above: Performed By: #### B MP, LIVER, TSH, LIPID #### [facility] [address] [address] Kitty Marium CO2 [Moles/Vol] 33.6 mmol/L Critically high 22.0-30.0 [facility] Comment on above: Performed By: #### B MP, LIVER, TSH, LIPID #### [facility] [address] [address] Kitty Marium Creatinine [Mass/Vol] 0.86 mg/dL Normal 0.52-1.04 [facility] Comment on above: Performed By: #### B MP, LIVER, TSH, LIPID #### [facility] [address] [address] Kitty Marium EGFR-AF SWISS >60 Normal >=60 [facility] Comment on above: Performed By: #### B MP, LIVER, TSH, LIPID #### [facility] [address] [address] Kitty Marium EGFR-NON AF SWISS >60 Normal >=60 [facility] Comment on above: Performed By: #### B MP, LIVER, TSH, LIPID #### [facility] [address] [address] Kitty Marium Glucose [Mass/Vol] 105 mg/dL Normal 74-106 [facility] Comment on above: Performed By: #### B MP, LIVER, TSH, LIPID #### [facility] [address] [phone] Kitty Marium Potassium [Moles/Vol] 3.6 mmol/L Normal 3.4-5.0 [facility] Comment on above: Performed By: #### B MP, LIVER, TSH, LIPID #### [facility] [address] [phone] Kitty Marium Sodium [Moles/Vol] 139 mmol/L Normal 137-145 [facility] Comment on above: Performed By: #### B MP, LIVER, TSH, LIPID #### [facility] [address] [phone] Kitty Marium Urea nitrogen [Mass/Vol] 12.0 mg/dL Normal 7.0-17.0 [facility] Comment on above: Performed By: #### B MP, LIVER, TSH, LIPID #### [facility] [address] [address] Kitty Marium Urea nitrogen/Creatinine [Mass ratio] 14.0 mg/mg Normal [facility] Comment on above: Performed By: #### B MP, LIVER, TSH, LIPID #### [facility] [address] [place] [address] Kitty Marium TSHon 04-25-2021 TSH 0.894 uIU/mL Normal 0.470-4.680 [facility] [place] Comment on above: Performed By: #### B MP, LIVER, TSH, LIPID #### [facility] [address] [address] Kitty Marium TSH RANGE SEE BELOW Normal [facility] Comment on above: Result Comment: <0.3 4 UIU/ml HYPERTHYROID 0.34-5.60 UIU/ml EUTHYROID >5.60 UIU/ml HYPOTHYROID Performed By: #### B MP, LIVER, TSH, LIPID #### [facility] [address] [place], [place] [phone] Kitty Marium VITAMIN D 25 OHon 04-25-2021 VIT D 25-OH 41.9 ng/mL Normal [facility] Comment on above: Performed By: #### V ITAD ####[facility] [address] [address]Gerken Marium VIT D RANGES SEE BELOW Normal [facility] Comment on above: Result Comment: <20 ng/mL Vit D deficient 20 - <30 ng/mL Vit D insufficient 30 - 100 ng/mL Vit D sufficient >100 ng/mL Potential Toxicity Performed By: #### V ITAD ####[facility] [address] [address]Gerken Marium ASYMPTOMATIC COVID-19 ANTIGE Non 03-16-2021 EUA Statement SEE BELOW Normal [facility] Comment on above: Result Comment: [...] is revoked sooner. Performed By: #### C VDAGA #### [facility] [address] [place] [address] Kitty Causey SARS-CoV-2 (COVID-19) RNA NATI+probe Ql (Unsp spec) Negative Normal NEGATIVE [facility] Comment on above: Result Comment: Nega tive results are presumptive. They do not preclude infection and should not be used as the sole basis for treatment decisions. Additional confirmatory testing by a molecular method should be considered. Performed By: #### C VDAGA #### [facility] [address] [place] [address] Kitty Causey CBC AUTO DIFFon 03-01-2021 BASO # 0.0 103/ul Normal 0.0-0.1 [facility] Comment on above: Performed By: #### C BC ####[facility] [address] Mar[place] Basophils/100 WBC (Bld) 0.2 % Normal 0.2-2.0 [facility] Comment on above: Performed By: #### C BC ####[facility] [address] [place] [id number] Marium EO # 0.1 103/ul Normal 0.0-0.7 [facility] Comment on above: Performed By: #### C BC ####[facility] [address] [place], [place] [address]Deyoar Marium Eosinophils/100 WBC (Bld) 0.6 % Critically low 0.9-7.0 [facility] Comment on above: Performed By: #### C BC ####[facility] [address] [place] [address]Vfuhnv Mar[place] Erythrocyte distribution width (RBC) [Ratio] 13.1 % Normal 11.0-15.0 [facility] Comment on above: Performed By: #### C BC ####[facility] [address] [place] [address]Pfllxj [place] Hematocrit (Bld) [Volume fraction] 46.0 % Normal 36.0-48.0 [facility] Comment on above: Performed By: #### C BC ####[facility] [address] [place], [place] [id number] Marium Hemoglobin (Bld) [Mass/Vol] 15.7 g/dL Normal 12.0-16.0 [facility] Comment on above: Performed By: #### C BC ####[facility] [address] [place] [address]Sftrup Marium IG # 0.06 10e3/ul Critically high 0.00-0.03 [facility] Comment on above: Performed By: #### C BC ####[facility] [address] [place], [place] [address]Gerken Marium IG % 0.5 % Normal 0.0-0.5 [facility] Comment on above: Performed By: #### C BC ####[facility] [address] [place], [place] [address]Gerken Marium LYMPH # 1.2 103/ul Normal 1.2-3.8 [facility] Comment on above: Performed By: #### C BC ####[facility] [address] [place], [place] [address]Gerken Marium Lymphocytes/100 WBC (Bld) 9.4 % Critically low 20.5-60.0 [facility] Comment on above: Performed By: #### C BC ####[facility] [address] [place], [place] [address]Npmusy Marium MANUAL DIFF REQ NO Normal [facility] Comment on above: Performed By: #### C BC ####[facility] [address] [place] [id number] Marium MCH (RBC) [Entitic mass] 31.5 pg Normal 26.7-34.0 [facility] Comment on above: Performed By: #### C BC ####[facility] [address] [place], [place] [address]Gerken Marium MCHC (RBC) [Mass/Vol] 34.1 g/dL Normal 29.9-35.2 [facility] Comment on above: Performed By: #### C BC ####[facility] [address] [place], [place] [address]Gerken Marium MCV (RBC) [Entitic vol] 92.4 fL Normal 81.0-99.0 [facility] Comment on above: Performed By: #### C BC ####[facility] [address] [place], [place] [address]Gerken Marium MONO # 0.7 103/ul Normal 0.3-0.8 [facility] Comment on above: Performed By: #### C BC ####[facility] [address] [place] [address] Mar[place] Monocytes/100 WBC (Bld) 5.6 % Normal 1.7-12.0 [facility] Comment on above: Performed By: #### C BC ####[facility] [address] [place] [address]Fepnem Marium NEUT # 11.0 103/ul Critically high 1.4-6.5 [facility] Comment on above: Performed By: #### C BC ####[facility] [address] [place], [place] [address]Gerken Marium Neutrophils/100 WBC (Bld) 83.7 % Critically high 43.0-75.0 [facility] Comment on above: Performed By: #### C BC ####[facility] [address] [place], [place] [address]DijkcsKitty Causey Platelet mean volume (Bld) [Entitic vol] 8.8 fL Critically low 9.5-13.5 [facility] Comment on above: Performed By: #### C BC ####[facility] [address] [place], [place] [address]VexxawKitty Causey PLT 324 103/ul Normal 150-450 [facility] Comment on above: Performed By: #### C BC ####[facility] [address] [place], [place] [address]OspftcKitty Causey RBC 4.98 106/ul Normal 4.20-5.40 [facility] Comment on above: Performed By: #### C BC ####[facility] [address] [place], [place] [address]MnbhwnKitty Causey WBC 13.1 103/ul Critically high 4.0-11.0 [facility] Comment on above: Performed By: #### C BC ####[facility] [address] [place], [place] [address]MvcgemKitty Causey CTA CHEST WO W CONon 021 [...] SUZETTE ROWELL Date: 2021-03-01 09:54 Normal [facility] D-DIMERon 03-01-2021 D-DIMER 1.46 mg/L FEU Critically high 0.19-0.50 [facility] Comment on above: Result Comment: Test repeated. Critical value verified. Performed By: #### D DIM, PT ####[facility] [address] [place] [address] Mar[place] D-DIMER COMMENTS SEE BELOW Normal [facility] Comment on above: Result [...] hospitalization. Performed By: #### D DIM, PT ####[facility] [address] [place] [address] [place] ER URINE PROFILEon 1 Bilirubin Ql (U) Negative Normal NEGATIVE [facility] Comment on above: Performed By: #### E RUR ####[facility] [address] [place] [address] [place] Clarity (U) CLEAR Normal CLEAR [facility] Comment on above: Performed By: #### E RUR ####[facility] [address] [place] [address] [place] Color (U) YELLOW Normal YELLOW [facility] Comment on above: Performed By: #### E RUR ####[facility] [address] [place] [address] Mar[place] ERUAHD A micrscopic examination will be performed if indicated. Normal [facility] Comment on above: Performed By: #### E RUR ####[facility] [address] [place] [address] [place] Glucose Ql (U) Negative Normal NEGATIVE [facility] Comment on above: Performed By: #### E RUR ####[facility] [id number] [place], [place] [address]ken Marium Hemoglobin Ql (U) Negative Normal NEGATIVE [facility] Comment on above: Performed By: #### E RUR ####[facility] [address] [place] [address] Marium Ketones Ql (U) TRACE Abnormal NEGATIVE [facility] Comment on above: Performed By: #### E RUR ####[facility] [address] [place] [address] [place] LEUKOCYTES Negative Normal NEGATIVE [facility] Comment on above: Performed By: #### E RUR ####[facility] [address] [place] [address] Mar[place] Nitrite Ql (U) Negative Normal NEGATIVE [facility] Comment on above: Performed By: #### E RUR ####[facility] [address] [place] [address] Marium pH (U) 6.0 [pH] Normal 5-9 [facility] Comment on above: Performed By: #### E RUR ####[facility] [address] [place] [address] Marium SPEC GRAVITY 1.015 Normal 1.005-<=1.025 [facility] Comment on above: Performed By: #### E RUR ####[facility] [address] [place] [address] Mar[place] UA PROTEIN Negative Normal NEGATIVE/ TRACE [facility] Comment on above: Performed By: #### E RUR ####[facility] [address] [place] [address] Marium UR MICRO IND NOT INDICATED Normal [facility] Comment on above: Performed By: #### E RUR ####[facility] [address] [place] [address] Marium Urobilinogen Qn (U) 0.2 {Brian'U}/dL Normal 0.2 - 1. 0 [facility] Comment on above: Performed By: #### E RUR ####[facility] [address] [place] [address] Marium LIPASEon 03-01-2021 Lipase [Catalytic activity/Vol] 59.0 U/L Normal 23.0-300.0 [facility] Comment on above: Performed By: #### L IPA ####[facility] [address] [place], [place] [address]Pmhxfb Karen PROF 14(COMP METB)on 021 Albumin [Mass/Vol] 3.6 g/dL Normal 3.5-5.0 [facility] Comment on above: Performed By: #### C JENISE, HSTROPN #### [facility] [address] [place], [place] [address] Kitty Marium Albumin/Globulin [Mass ratio] 0.8 {ratio} Normal [facility] Comment on above: Performed By: #### C JENISE, HSTROPN #### [facility] [address] [place], [place] [address] Kitty Marium ALP [Catalytic activity/Vol] 101 U/L Normal 38-126 [facility] Comment on above: Performed By: #### C JENISE, HSTROPN #### [facility] [address] [place], [place] [address] Kitty Marium ALT [Catalytic activity/Vol] 38 U/L Normal 9-52 [facility] Comment on above: Performed By: #### C JENISE, HSTROPN #### [facility] [address] [place], [place] [address] Kitty Marium Anion gap [Moles/Vol] 16.7 mmol/L Normal [facility] Comment on above: Performed By: #### C JENISE, HSTROPN #### [facility] [address] [place], [place] [address] Kitty Marium AST [Catalytic activity/Vol] 55 U/L Critically high 14-36 [facility] Comment on above: Performed By: #### C JENISE, HSTROPN #### [facility] [address] [place], [place] [address] Ktity Marium Bilirubin [Mass/Vol] 0.4 mg/dL Normal 0.2-1.3 [facility] Comment on above: Performed By: #### C MP, HSTROPN #### [facility] [address] [place], [place] [address] Kitty Marium Calcium [Mass/Vol] 9.0 mg/dL Normal 8.4-10.2 [facility] Comment on above: Performed By: #### C MP, HSTROPN #### [facility] [address] [place] [id number] Kitty Marium Chloride [Moles/Vol] 100 mmol/L Normal 98-107 [facility] Comment on above: Performed By: #### C MP, HSTROPN #### [facility] [address] [place] [id number] Kitty Marium CO2 [Moles/Vol] 28.2 mmol/L Normal 22.0-30.0 [facility] Comment on above: Performed By: #### C MP, HSTROPN #### [facility] [address] [place] [address] Kitty Marium Creatinine [Mass/Vol] 0.90 mg/dL Normal 0.52-1.04 [facility] Comment on above: Performed By: #### C MP, HSTROPN #### [facility] [address] [place], [place] [id number] Kitty Marium EGFR-AF SWISS >60 Normal >=60 [facility] Comment on above: Performed By: #### C MP, HSTROPN #### [facility] [address] [place], [place] [id number] Kitty Marium EGFR-NON AF SWISS >60 Normal >=60 [facility] Comment on above: Performed By: #### C MP, HSTROPN #### [facility] [address] [place] [id number] Kitty Marium Globulin (S) [Mass/Vol] 4.5 g/dL Normal [facility] Comment on above: Performed By: #### C MP, HSTROPN #### [facility] [address] [place] [id number] Kitty Marium Glucose [Mass/Vol] 211 mg/dL Critically high 74-106 [facility] Comment on above: Performed By: #### C MP, HSTROPN #### [facility] [address] [place] [id number] Kitty Marium Potassium [Moles/Vol] 3.9 mmol/L Normal 3.4-5.0 [facility] Comment on above: Performed By: #### C MP, HSTROPN #### [facility] [address] [place] [id number] Kitty Marium Protein [Mass/Vol] 8.1 g/dL Normal 6.1-8.2 [facility] Comment on above: Performed By: #### C JENISE, HSTROPN #### [facility] [address] [place] [address] Kitty Marium Sodium [Moles/Vol] 141 mmol/L Normal 137-145 [facility] Comment on above: Performed By: #### C MP, HSTROPN #### [facility] [address] [place] [id number] Kitty Marium Urea nitrogen [Mass/Vol] 8.0 mg/dL Normal 7.0-17.0 [facility] Comment on above: Performed By: #### C JENISE, HSTROPN #### [facility] [address] [place] [id number] Kitty Marium Urea nitrogen/Creatinine [Mass ratio] 8.9 mg/mg Normal [facility] Comment on above: Performed By: #### C MP, HSTROPN #### [facility] [address] [place] [id number] Kitty Marium PROTIMEon 03-01-2021 INR Coag (PPP) [Relative time] 1.00 {INR} Normal [facility] Comment on above: Performed By: #### D DIM, PT ####[facility] [address] [place] [id number] Marium INR GUIDELINES SEE BELOW Normal [facility] Comment on above: Result Comment: MATT RED INR: 2.0 - 3.0 CONDITIONS NOT LISTED BELOW 2.5 - 3.5 FOR PROSTHETIC HEART VALVE REPLACEMENT 2.5 - 3.5 RECURRENT THROMBOSIS Performed By: #### D DIM, PT ####[facility] [address] [place], [place] [address]CowgqnKitty Causey PT Coag (PPP) [Time] 10.9 s Normal 9.0-11.6 [facility] Comment on above: Performed By: #### D DIM, PT ####[facility] [address] [place], [place] [address]YozqgrKitty Causey TROPONIN, HIGH SENSITIVITYon 03-01-2021 HSTROP 5.0 pg/mL Normal 4.0-35.5 [facility] Comment on above: Result Comment: CUT- OFF POINTS HAVE BEEN ESTABLISHED BASED ON THE FOURTH UNIVERSAL DEFINITIONS OF MYOCARDIAL INFARCTION. THE UPPER REFERENCE LIMIT (URL) OF TROPONIN, DEFINED THE 99TH PERCENTILE OF cTnI DISTRIBUTION IN A REFERENCE POPULATION, HAS BEEN CONFIRMED THE DECISION THRESHOLD FOR [place] DIAGNOSIS. Performed By: #### C MP, HSTROPN #### [facility] [address] [place], [place] [address] Kitty Causey XR CHEST 1 Von 03-01-2021 [...] by: SUZETTE ROWELL Date: 2021-03-01 07:52 Normal [facility] Vital Signs Date Time Vital Sign Value Performing Clinician Facility 03-01-2025 08:23-0400 Body height 154.9 cm Sam Hancock MD Work Phone: [facility] 03-01-2025 08:23-0400 Body mass index (BMI) [Ratio] 41.76 kg/m2 Sam Hancock MD Work Phone: [facility] 03-01-2025 08:23-0400 Body temperature 97.3 [degF] Sam Hancock MD Work Phone: [facility] 03-01-2025 08:23-0400 Body weight 100.25 kg Sam Hancock MD Work Phone: [facility] 03-01-2025 08:23-0400 Diastolic blood pressure 62 mm[Hg] Sam Hancock MD Work Phone: [facility] 03-01-2025 08:23-0400 Heart rate 60 /min Sam Hancock MD Work Phone: [facility] 03-01-2025 08:23-0400 Respiratory rate 22 /min Sam Hancock MD Work Phone: [facility] 03-01-2025 08:23-0400 SaO2% (BldA) [Mass fraction] 99 % Sam Hancock MD Work Phone: [facility] 03-01-2025 08:23-0400 Systolic blood pressure 114 mm[Hg] Sam Hancock MD Work Phone: [facility] 02-20-2025 10:36-0400 Body mass index (BMI) [Ratio] 42.51 kg/m2 Azeem Lety DO Work Phone: [facility] 02-20-2025 10:36-0400 Body weight 102.06 kg Azeem Lety DO Work Phone: [facility] 02-20-2025 10:36-0400 Diastolic blood pressure 60 mm[Hg] Azeem Lety DO Work Phone: [facility] 02-20-2025 10:36-0400 Systolic blood pressure 102 mm[Hg] Azeem Lety DO Work Phone: [facility] 01-10-2025 11:07-0400 Body mass index (BMI) [Ratio] 42.48 kg/m2 Azeem Lety DO Work Phone: [facility] 01-10-2025 11:07-0400 Body weight 101.97 kg Azeem Lety DO Work Phone: [facility] 01-10-2025 11:07-0400 Diastolic blood pressure 74 mm[Hg] Azeem Davidson DO Work Phone: [facility] 01-10-2025 11:07-0400 Systolic blood pressure 132 mm[Hg] Azeem Silveirao DO Work Phone: [facility] 01-04-2025 09:26-0400 Body height 154.9 cm Sam Hancock MD Work Phone: [facility] 01-04-2025 09:26-0400 Body mass index (BMI) [Ratio] 44.59 kg/m2 Sam Hancock MD Work Phone: [facility] 01-04-2025 09:26-0400 Body temperature 97.5 [degF] Sam Hancock MD Work Phone: [facility] 01-04-2025 09:26-0400 Body weight 107.05 kg Sam Hancock MD Work Phone: [facility] 01-04-2025 09:26-0400 Diastolic blood pressure 84 mm[Hg] Sam Hancock MD Work Phone: [facility] 01-04-2025 09:26-0400 Heart rate 109 /min Sam Hancock MD Work Phone: [facility] 01-04-2025 09:26-0400 Respiratory rate 24 /min Sam Hancock MD Work Phone: [facility] 01-04-2025 09:26-0400 SaO2% (BldA) [Mass fraction] 91 % Sam Hancock MD Work Phone: [facility] 01-04-2025 09:26-0400 Systolic blood pressure 176 mm[Hg] Sam Hancock MD Work Phone: [facility] 09-07-2024 08:47-0500 Body height 154.9 cm Myrtle Cota MD Work Phone: [facility] 09-07-2024 08:47-0500 Body mass index (BMI) [Ratio] 48.18 kg/m2 Myrtle Cota MD Work Phone: [facility] 09-07-2024 08:47-0500 Body weight 115.67 kg Myrtle Cota MD Work Phone: [facility] 09-07-2024 08:47-0500 Diastolic blood pressure 84 mm[Hg] Myrtle Cota MD Work Phone: [facility] 09-07-2024 08:47-0500 Heart rate 82 /min Myrtle Cota MD Work Phone: [facility] 09-07-2024 08:47-0500 Systolic blood pressure 142 mm[Hg] Myrtle Cota MD Work Phone: [facility] 09-05-2024 11:33-0500 Body height 154.9 cm Sam Hancock MD Work Phone: [facility] 09-05-2024 11:33-0500 Body mass index (BMI) [Ratio] 47.8 kg/m2 Sam Hancock MD Work Phone: [facility] 09-05-2024 11:33-0500 Body temperature 98.01 [degF] Sam Hancock MD Work Phone: [facility] 09-05-2024 11:33-0500 Body weight 114.76 kg Sam Hancock MD Work Phone: [facility] 09-05-2024 11:33-0500 Diastolic blood pressure 70 mm[Hg] Sam Hancock MD Work Phone: [facility] 09-05-2024 11:33-0500 Heart rate 117 /min Sam Hancock MD Work Phone: [facility] 09-05-2024 11:33-0500 Respiratory rate 24 /min Sam Hancock MD Work Phone: [facility] 09-05-2024 11:33-0500 SaO2% (BldA) [Mass fraction] 97 % Sam Hancock MD Work Phone: [facility] 09-05-2024 11:33-0500 Systolic blood pressure 130 mm[Hg] Sam Hancock MD Work Phone: [facility] 07-29-2024 07:46-0500 Body height 154.9 cm Pmh 1 [facility] 07-29-2024 07:46-0500 Body mass index (BMI) [Ratio] 48.18 kg/m2 Pmh 1 [facility] 07-29-2024 07:46-0500 Body weight 115.67 kg Pmh 1 [facility] 07-20-2024 10:47-0500 Body height 154.9 cm Adia Talasim [employer]ACHINE [employer] Work Phone: [facility] 07-20-2024 10:47-0500 Body mass index (BMI) [Ratio] 47.8 kg/m2 Enel OGK-5 [employer] MACHINE OPERATOR[employer] Work Phone: [facility] 07-20-2024 10:47-0500 Body weight 114.67 kg Enel OGK-5 [employer] MACHINE OPER[employer] Work Phone: [facility] 06-21-2024 15:31-0400 Body height 154.9 cm Sam Hancock MD Work Phone: [facility] 06-21-2024 15:31-0400 Body mass index (BMI) [Ratio] 48.37 kg/m2 Sam Hancock MD Work Phone: [facility] 06-21-2024 15:31-0400 Body temperature 98.01 [degF] Sam Hancock MD Work Phone: [facility] 06-21-2024 15:31-0400 Body weight 116.12 kg Sam Hancock MD Work Phone: [facility] 06-21-2024 15:31-0400 Diastolic blood pressure 92 mm[Hg] Sam Hancock MD Work Phone: [facility] 06-21-2024 15:31-0400 Heart rate 121 /min Sam Hancock MD Work Phone: [facility] 06-21-2024 15:31-0400 Respiratory rate 24 /min Sam Hancock MD Work Phone: [facility] 06-21-2024 15:31-0400 SaO2% (BldA) [Mass fraction] 96 % Sam Hancock MD Work Phone: [facility] 06-21-2024 15:31-0400 Systolic blood pressure 190 mm[Hg] Sam Hancock MD Work Phone: [facility] 04-28-2024 11:44-0400 Body height 154.9 cm Jalen Pierce MD Work Phone: [facility] 04-28-2024 11:44-0400 Body mass index (BMI) [Ratio] 41.59 kg/m2 Jalen Pierce MD Work Phone: [facility] 04-28-2024 11:44-0400 Body temperature 97.3 [degF] Jalen Pierce MD Work Phone: [facility] 04-28-2024 11:44-0400 Body weight 99.8 kg Jalen Pierce MD Work Phone: [facility] 01-21-2024 08:15-0400 Body height 154.9 cm Jalen Pierce MD Work Phone: [facility] 01-21-2024 08:15-0400 Body mass index (BMI) [Ratio] 41.59 kg/m2 Jalen Pierce MD Work Phone: [facility] 01-21-2024 08:15-0400 Body temperature 95.11 [degF] Jalen Pierce MD Work Phone: [facility] 01-21-2024 08:15-0400 Body weight 99.8 kg Jalen Pierce MD Work Phone: [facility] 11-24-2023 12:57-0400 Body height 154.9 cm Jalne Pierce MD Work Phone: [facility] 11-24-2023 12:57-0400 Body mass index (BMI) [Ratio] 41.59 kg/m2 Jalen Pierce MD Work Phone: [facility] 11-24-2023 12:57-0400 Body temperature 98.01 [degF] Jalen Pierce MD Work Phone: [facility] 11-24-2023 12:57-0400 Body weight 99.8 kg Jalen Pierce MD Work Phone: [facility] 10-17-2023 07:44-0500 Body temperature 98.49 [degF] Wilfredo Keen DO Work Phone: [facility] 10-17-2023 07:44-0500 Diastolic blood pressure 82 mm[Hg] Wilfredo Keen DO Work Phone: [facility] 10-17-2023 07:44-0500 Heart rate 90 /min Wilfredo Keen DO Work Phone: [facility] 10-17-2023 07:44-0500 Respiratory rate 12 /min Wilfredo Keen DO Work Phone: [facility] 10-17-2023 07:44-0500 SaO2% (BldA) [Mass fraction] 95 % Wilfredo Keen DO Work Phone: [facility] 10-17-2023 07:44-0500 Systolic blood pressure 125 mm[Hg] Wilfredo Keen DO Work Phone: [facility] 10-17-2023 02:40-0500 Body mass index (BMI) [Ratio] 44.46 kg/m2 Wilfredo Keen DO Work Phone: [facility] 10-17-2023 02:40-0500 Body weight 106.73 kg Wilfredo Keen DO Work Phone: [facility] 10-15-2023 09:19-0500 Body height 154.9 cm Wilfredo Keen DO Work Phone: [facility] 09-15-2023 07:01-0500 Body height 154.9 cm Pmh 1 [facility] 09-15-2023 07:01-0500 Body mass index (BMI) [Ratio] 41.19 kg/m2 Pmh 1 [facility] 09-15-2023 07:01-0500 Body weight 98.88 kg Pmh 1 [facility] Encounters Encounter Date Encounter Type Care Provider Facility Start: 03-09-2025 End: 03-09-2025 Clinisync Result Encounter Generic External Data Provider [facility] External Department Unsolicited Start: 03-09-2025 End: 03-09-2025 Clinisync Result Encounter Generic External Data Provider [facility] External Department Unsolicited Start: 03-02-2025 End: 03-02-2025 Clinisync Result Encounter Generic External Data Provider [facility] External Department Unsolicited Start: 03-02-2025 End: 03-02-2025 Clinisync Result Encounter Generic External Data Provider [facility] External Department Unsolicited Start: 03-01-2025 End: 03-01-2025 Bamboo flowsheet Sam Hancock MD Work Phone: [facility] Start: 03-01-2025 End: 03-01-2025 Bamdemarcuso flowsheet Sam Hancock MD Work Phone: [facility] [...] 02-20-2025 Office outpatient visit 15 minutes Azeem Davidson DO Work Phone: [facility] Comment on above: Pre-op examination; Post-menopausal bleeding Start: 02-20-2025 End: 02-20-2025 Preprocedural examination done Azeem Silveirao DO Work Phone: [facility] Start: 02-20-2025 End: 02-20-2025 ambulatory AZEEM DAVIDSON Not Available Start: 02-13-2025 End: 02-13-2025 ambulatory [facility] Start: 02-13-2025 End: 02-13-2025 Encounter for preprocedural cardiovascular examination [facility] Start: 02-01-2025 End: 02-01-2025 Bamboo flowsheet Christy Eusebia Saroj PT Work Phone: [facility] Start: 02-01-2025 End: 02-01-2025 Bamboo flowsheet Christy J Saroj PT Work Phone: [facility] Start: 02-01-2025 End: 02-01-2025 ambulatory Christy J Saroj PT Work Phone: [facility] Comment on above: Primary osteoarthrit is of left hip; Status post total hip replacement, left Start: 01-25-2025 End: 01-25-2025 Bamboo flowsheet Christy J Saroj PT Work Phone: [facility] Start: 01-25-2025 End: 01-25-2025 Bamboo flowsheet Christy J Saroj PT Work Phone: [facility] Start: 01-25-2025 End: 01-25-2025 ambulatory Christy J Saroj PT Work Phone: [facility] [...] Not Available Start: 01-09-2025 ambulatory SAM HANCOCK [facility] Start: 01-04-2025 End: 01-04-2025 Bamboo flowsheet [...] Telephone encounter [facility] Start: 12-10-2024 End: 12-12-2024 Refill Myrtle Cota MD Work Phone: [facility] Comment on above: LPRD (laryngopharyng eal reflux disease) Start: 10-28-2024 End: 10-28-2024 Telephone encounter Andria Hoffman [facility] Comment on above: Attribution Outreach Start: 09-07-2024 End: 09-07-2024 Bamboo flowsheet Myrtle Cota MD Work Phone: [facility] Start: 09-07-2024 End: 09-07-2024 Bamboo flowsheet Myrtle Cota MD Work Phone: [facility] [...] Phone: [facility] Comment on above: Globus sensation (Pr imary [...] Start: 08-02-2024 End: 12-15-2024 Telephone encounter Aparna Murcia RMA [facility] Start: 07-29-2024 End: 07-29-2024 Patient encounter procedure [facility] Pre-Admission Testing 1 [facility] - Pre Admit Start: 07-29-2024 End: 07-29-2024 ambulatory SAM [facility] Start: 07-29-2024 End: 07-29-2024 ambulatory SUZETTE CEJA [facility] Start: 07-20-2024 End: 07-20-2024 Telephone encounter Aparna Murcia [facility] General Surgery Start: 07-20-2024 End: 07-20-2024 [facility] [employer] Work Phone: [facility] Comment on above: Bleeding internal he morrhoids (Primary Dx) Start: 07-20-2024 End: 07-20-2024 ambulatory [facility] Start: 07-01-2024 End: 07-01-2024 Orders Only Sam Hancock MD Work Phone: [facility] Comment on above: Adult hypothyroidism (CMS/HCC) (Primary Dx) Edema of both legs ( Primary Dx) Start: 06-30-2024 End: 06-30-2024 External Result Encounter Sam Hancokc MD Work Phone: [facility] External Department Unsolicited Start: 06-30-2024 End: 06-30-2024 External Result Encounter Sam Hancock MD Work Phone: [facility] External Department Unsolicited Start: 06-30-2024 End: 06-30-2024 ambulatory SAM HANCOCK [facility] Start: 06-21-2024 End: 06-21-2024 ambulatory SAM [...] (BMI) of 45.0 to 49.9 in adult ([facility]); Prediabetes; Primary hypothyroidism ([facility]); Encounter for long-term (current) use of medications; Dyslipidemia ([facility]); Morbid obesity due to excess calories ([facility]) Start: 06-21-2024 End: 06-21-2024 BamDivas [employer] Sam Hancock MD Work Phone: [facility] Start: 06-21-2024 End: 06-21-2024 Payoneermaria elena Hancock MD Work Phone: [facility] Start: 04-28-2024 End: 04-28-2024 Office outpatient visit 25 minutes Jalen Pierce MD Work Phone: [facility] Comment on above: Periprosthetic fract ure around internal prosthetic left hip joint, subsequent encounter (Primary Dx); S/P revision of total hip; Morbid obesity with BMI of 40.0-44.9, adult ([facility]) Start: 04-28-2024 End: 04-28-2024 ambulatory [facility] Start: 01-21-2024 End: 01-21-2024 Postop follow up visit related to original px Jalen Pierce MD Work Phone: [facility] Comment on above: S/P revision of tota l hip (Primary Dx); Osteoarthritis of left shoulder, unspecified osteoarthritis type; Osteoarthritis of right elbow, unspecified osteoarthritis type; Morbid obesity with BMI of 40.0-44.9, adult ([facility]); Right elbow pain; Chronic left shoulder pain Start: 01-21-2024 End: 01-21-2024 ambulatory [facility] Start: 12-09-2023 End: 12-09-2023 Telephone encounter [facility] Comment on above: attribution outreach Start: 12-07-2023 End: 12-07-2023 Telephone encounter Jalen Pierce MD Work Phone: [facility] Start: 11-24-2023 End: 11-24-2023 ambulatory JALEN [facility] Start: 11-24-2023 End: 11-24-2023 Postop follow up visit related to original px Jalen Pierce MD Work Phone: [facility] Comment on above: Right elbow pain (Pr imary Dx); S/P revision of total hip; Morbid obesity with BMI of 40.0-44.9, adult (CMS-HCC); Chronic left shoulder pain Start: 11-18-2023 End: 11-19-2023 ambulatory [facility] Fabio HANCOCK Facility:[facility] Start: 11-14-2023 End: 11-14-2023 Evaluation and management of inpatient CLAUDY NAVARRETE [facility] Start: 11-10-2023 End: 11-14-2023 Evaluation and management of inpatient FRANCO WILEY [facility] Start: 11-09-2023 End: 11-14-2023 Evaluation and management of inpatient CHRISTY MARTINEZ [facility] Start: 11-09-2023 End: 11-14-2023 Evaluation and management of inpatient [facility] Start: 11-07-2023 End: 11-14-2023 Evaluation and management of inpatient JALEN [facility] Start: 11-07-2023 End: 11-14-2023 [facility] Start: 11-07-2023 End: 11-14-2023 Emergency department patient visit JABARI LO [facility] Start: 11-07-2023 Encounter for other preprocedural examination LIT GIFFORD [facility] Start: 11-07-2023 End: 11-14-2023 [facility] Start: 11-07-2023 End: 11-14-2023 Emergency department patient visit JABARI LO [facility] Start: 10-15-2023 End: 10-17-2023 Subsequent hospital visit by physician Wilfredo Keen DO Work Phone: [facility] - Acute Care Comment on above: Primary localized os teoarthritis of left hip (Primary Dx) Start: 10-06-2023 Refill Sam Eng Work Phone: [facility] Comment on above: Essential hypertensi on, benign (CMS/HCC) (Primary Dx) Start: 09-24-2023 Patient encounter status Sam Hancock MD Work Phone: [facility] Start: 09-24-2023 End: 06-21-2024 Preoperative state Sam Hancock MD Work Phone: [facility] [employer] Start: 09-18-2023 End: 09-18-2023 Patient encounter procedure Pmh Pre-Admission Testing 1 [facility] - Pre Admit Comment on above: Preop examination (P rimary Dx); Hypertension, unspecified type; Atrial fibrillation, unspecified type (CMS-HCC); BMI 40.0-44.9, adult (CMS-HCC) Start: 09-18-2023 End: 09-18-2023 Preprocedural examination done Pm 1 [facility] Start: 03-20-[address] SAM HANCOCK [facility] ity:H1 Start: 01-16-2022 End: 01-17-[address] SAM HANCOCK Facility:H1 Start: 01-16-2022 End: 01-17-[address] SAM HANCOCK Facility:H1 Start: 10-17-2021 End: 10-18-2021 ambulatory FILIPPO CHOWDARY Facility:H1 Start: 07-25-2021 End: 07-26-2021 ambulatory FILIPPO CHOWDARY Facility:H1 Start: 05-04-2021 Encounter for genera l adult medical examination without abnormal findings DR TAY CLAY [facility] Start: 04-25-2021 End: 04-26-2021 Encounter for general adult medical examination without abnormal findings DR TAY CLAY Facility:H1 Start: 04-25-2021 End: 04-26-[address] TAY CLAY Facility:H1 Start: 03-26-2021 Encounter for other preprocedural examination DR TAY CLAY [facility] Start: 03-26-2021 End: 03-26-[address] TAY [...] Start: 02-04-2021 End: 02-05-[address] TAY CLYA Facility:H1 Procedures Date Procedure Procedure Detail Performing Clinician Start: 03-09-2025 CA ECHO DOPPLER COMPLETE Generic External Data Provider Start: 03-02-2025 XR CHEST 2V Azeem Fazi o DO Work Phone: Start: 03-02-2025 ALL CBC WITH AUTO DIFF Azeem Lety DO Work Phone: Start: 06-30-2024 Complete blood count with white cell differential, automated Sam Hancock MD Work Phone: Start: 01-21-2024 Follow-up visit Follow-up JALEN PIERCE Start: 10-15-2023 Radex hip unilateral with pelvis 2-3 views Wilfredo Keen DO Work Phone: Start: 10-15-2023 End: 10-15-2023 Arthrp acetblr/prox fem prostc agrft/algrft Wilfredo Keen DO Work Phone: Start: 10-15-2023 REPEATED ABORH Wilfredo Keen DO Work Phone: Start: 07-06-2023 Microscopic observat ion [Identifier] in Cervix by Cyto stain [facility] 1 Start: 02-13-2023 Colonoscopy Sam downs MD Work Phone: Plan of Treatment Date Care Activity Detail Author Start: 02-13-2033 Screening for malignant neoplasm of colon [facility] Start: 07-06-2028 Screening for malignant neoplasm of cervix [facility] Start: 07-06-2026 Screening for malignant neoplasm of cervix Pap Smear [facility] Start: 07-29-2025 Adult BMI Screening Adult BMI Screening [facility] Start: 07-29-2025 Tobacco Screening Tobacco Screening [facility] Start: 07-20-2025 Adult BMI Screening Adult BMI Screening [facility] Start: 07-20-2025 Tobacco Screening Tobacco Screening [facility] Start: 06-07-2025 End: 06-07-2025 Patient encounter procedure 06/07/2025 8:00 AM EDT Office Visit [facility] [address] [place] [address] Sam Hancock MD [address] [place] [phone] [facility] Start: 04-28-2025 Adult BMI Screening Adult BMI Screening [facility] Start: 04-24-2025 Influenza vaccination [facility] Start: 04-06-2025 End: 04-06-2025 Patient encounter procedure 04/06/2025 9:30 AM EDT Office Visit [facility] [address] [place] [address] Sam Hancock MD [address] [place] [phone] [facility] Start: 03-27-2025 End: 03-27-2025 Patient encounter procedure 03/27/2025 8:30 AM EDT Office Visit [facility] [address] [facility] [place] [phone] Nola Knight PA [address] [place], [place] [phone] [facility] Start: 03-01-2025 End: 03-01-2025 Patient encounter procedure [facility] Comment on above: Arrived Start: 02-20-2025 End: 02-20-2025 Patient encounter procedure 02/20/2025 10:40 AM EDT Consult [facility] [address] [facility] [place] [address] Azeem Davidson DO [address] [facility] [place] [address] [facility] Start: 02-08-2025 End: 02-08-2025 ambulatory 02/08/2025 7:00 AM EDT Treatment [facility] [address] [place] [phone] Christy Cary, PT [address] [place] [address] [facility] Start: 02-01-2025 End: 02-01-2025 ambulatory 02/01/2025 7:00 AM EDT Treatment [facility] [address] [place] [phone] Christy Cary, PT [address] [place] [address] [facility] Start: 01-24-2025 Tobacco [facility] Start: 01-20-2025 Adult BMI Screening Adult BMI Screening [facility] Start: 01-20-2025 Tobacco Screening [facility] Start: 01-12-2025 End: 01-12-2025 ambulatory 01/12/2025 9:00 AM EDT Evaluation [facility] [address] [place] [phone] Christy Cary, PT [address] [place] [address] [facility] Start: 01-10-2025 End: 01-10-2025 Patient encounter procedure [facility] Comment on above: Arrived Start: 01-04-2025 End: 03-06-2026 MG Breast - bilateral Screening Bilateral screening mammogram Imaging Routine Breast cancer screening by mammogram Expected: 01/04/2025, Expires: 03/06/2026 [facility] Work Phone: Comment on above: Expected: 01/04/2025, Expires: Start: 01-04-2025 End: 01-04-2026 Thyrotropin [Units/volume] in Serum or Plasma TSH Lab Routine Adult hypothyroidism (CMS/HCC) Expected: 01/04/2025 (Approximate), Expires: 01/04/2026 [facility] Comment on above: Expected: 01/04/2025 (Approximate), Expi res: 01/04/2026 Start: 01-04-2025 End: 01-04-2026 Thyroxine (T4) free [Mass/volume] in Serum or Plasma T4, free Lab Routine Adult hypothyroidism (CMS/HCC) Expected: 01/04/2025 (Approximate), Expires: 01/04/2026 [facility] Comment on above: Expected: 01/04/2025 (Approximate), Expi res: 01/04/2026 Start: 01-04-2025 End: 01-04-2026 Triiodothyronine (T3) Free [Mass/volume] in Serum or Plasma T3, free Lab Routine Adult hypothyroidism (CMS/HCC) Expected: 01/04/2025 (Approximate), Expires: 01/04/2026 [facility] Comment on above: Expected: 01/04/2025 (Approximate), Expi res: 01/04/2026 Start: 01-04-2025 End: 01-04-2026 Urate [Mass/volume] in Serum or Plasma Uric acid Lab Routine Arthritis of ankle, left Expected: 01/04/2025 (Approximate), Expires: 01/04/2026 [facility] Comment on above: Expected: 01/04/2025 (Approximate), Expi res: 01/04/2026 Start: 01-04-2025 End: 01-04-2025 Patient encounter procedure 01/04/2025 9:15 AM EDT Office Visit [facility] [address] [place] [address] Sam Hancock MD [address] [place] [phone] Arrived [facility] Comment on above: Arrived Start: 12-15-2024 End: 12-15-2024 Patient encounter procedure 12/15/2024 1:30 PM EDT Office Visit [facility] [address] [place] [phone] Sam Hancock MD [address] [place] [address] [facility] Start: 12-02-2024 Tobacco Screening Tobacco Screening [facility] Start: 11-23-2024 Adult BMI Screening Adult BMI Screening [facility] Start: 09-27-2024 End: 09-27-2024 Patient encounter procedure 09/27/2024 8:00 AM EST Office Visit [facility] Re[facility] [address] [place] [phone] Jalen Pierce MD [address] [place] [address], [address] [place], [place] [phone] [facility] Start: 09-18-2024 Tobacco Screening [facility] Start: 09-15-2024 Adult BMI Screening [facility] Start: 09-05-2024 End: 09-05-2024 Patient encounter procedure 09/05/2024 11:30 AM EST Office Visit [facility] [address] [place] [phone] Sam Hancock MD [address] [place] [phone] Arrived [facility] Comment on above: Arrived Start: 08-23-2024 End: 08-23-2024 Patient encounter procedure 08/23/2024 10:00 AM EST [facility] [address] [place] [phone] Adia Iglesias, HALVER MACHINE OPERATOR-FLOOR WORK[employer] [address] [place] [address] [facility] General Surgery Start: 08-09-2024 End: 08-09-2024 Admission to same day surgery center 08/09/2024 8:45 AM EST - 08/09/2024 9:30 AM EST Surgery [facility] [address] [place] [phone] Sebastian Garcia, DO [address] [place], [place] [phone] HEMORRHOIDECTOMY [42203 (CPT )] [facility] Comment on above: HEMORRHOIDECTOMY [60214 (CPT )] Start: 08-09-2024 End: 08-09-2024 Anesthesia consultation 08/09/2024 8:45 AM EST Anesthesia Event [facility] [address] [place] [phone] Agustín Cox, DO [address] [facility], [place] [phone] [facility] - Surgery Start: 08-09-2024 End: 08-09-2024 Hemorrhoidectomy ntrnl & xtrnl 1 column/group HEMORRHOIDECTOMY rectal bleeding, internal hemorrhoids 08/09/2024 8:45 AM EST [facility] Start: 08-09-2024 Subsequent hospital visit by physician 08/09/2024 8:45 AM EST Hospital Encounter [facility] [address] [place] [phone] Sebastian Garcia, DO [address] [place] [phone] [facility] - Surgery Start: 07-28-2024 End: 07-28-2024 Patient encounter procedure 07/28/2024 11:15 AM EST Office Visit [facility] [address] [place] [address] Sam Hancock MD [address] [place] [address] [facility] Start: 07-27-2024 End: 07-27-2024 Patient encounter procedure [facility] Start: 06-21-2024 End: 06-21-2025 Basic metabolic 1998 panel - Serum or Plasma Basic metabolic panel Lab Routine Essential hypertension, benign (CMS/HCC) Expected: 06/21/2024 (Approximate), Expires: 06/21/2025 [facility] Comment on above: Expected: 06/21/2024 (Approximate), Expi res: 06/21/2025 Start: 06-21-2024 End: 06-21-2025 CBC W Auto Differential panel - Blood CBC and differential Lab Routine Encounter for long-term (current) use of medications Expected: 06/21/2024 (Approximate), Expires: 06/21/2025 [facility] Comment on above: Expected: 06/21/2024 (Approximate), Expi res: 06/21/2025 Start: 06-21-2024 End: 06-21-2025 Hemoglobin A1c/Hemoglobin.total in Blood Hemoglobin A1c Lab Routine Prediabetes Expected: 06/21/2024 (Approximate), Expires: 06/21/2025 [facility] Work Phone: Comment on above: Expected: 06/21/2024 (Approximate), Expi res: 06/21/2025 Start: 06-21-2024 End: 06-21-2025 Hepatic function 2000 panel - Serum or Plasma Hepatic function panel Lab Routine Encounter for long-term (current) use of medications Expected: 06/21/2024 (Approximate), Expires: 06/21/2025 [facility] Comment on above: Expected: 06/21/2024 (Approximate), Expi res: 06/21/2025 Start: 06-21-2024 End: 06-21-2025 Lipid 1996 panel - Serum or Plasma Lipid panel Lab Routine Class 3 severe obesity due to excess calories with serious comorbidity and body mass index (BMI) of 45.0 to 49.9 in adult (CMS/HCC) Dyslipidemia (CMS/HCC) Expected: 06/21/2024 (Approximate), Expires: 06/21/2025 [facility] Comment on above: Expected: 06/21/2024 (Approximate), Expi res: 06/21/2025 Start: 06-21-2024 End: 06-21-2025 Thyrotropin [Units/volume] in Serum or Plasma TSH Lab Routine Primary hypothyroidism (CMS/HCC) Expected: 06/21/2024 (Approximate), Expires: 06/21/2025 [facility] Comment on above: Expected: 06/21/2024 (Approximate), Expi res: 06/21/2025 Start: 06-21-2024 End: 06-21-2025 Thyroxine (T4) free [Mass/volume] in Serum or Plasma T4, free Lab Routine Primary hypothyroidism (CMS/HCC) Expected: 06/21/2024 (Approximate), Expires: 06/21/2025 [facility] Comment on above: Expected: 06/21/2024 (Approximate), Expi res: 06/21/2025 Start: 04-24-2024 COVID-19 Vaccine ( season) COVID-19 Vaccine ( season) [facility] Start: 04-24-2024 COVID-19 Vaccine ( season) COVID-19 Vaccine ( season) [facility] Start: 04-24-2024 Influenza vaccination [facility] Start: 04-21-2024 End: 04-21-2024 Patient encounter procedure 04/21/2024 8:30 AM EDT [facility] [address] [place] [address] Jalen Pierce MD [facility] [address] [place] [address] [facility] Start: 01-21-2024 End: 04-21-2024 XR Femur - left 2 Views X-ray femur left 2+ views Imaging Routine S/P revision of total hip Morbid obesity with BMI of 40.0-44.9, adult ([facility] Right elbow pain Chronic left shoulder pain Expected: 01/21/2024, Expires: 04/21/2024 [facility] Work Phone: Comment on above: Expected: 01/21/2024, Expires: Start: 01-12-2024 End: 01-12-2024 Patient encounter procedure 01/12/2024 10:30 AM EDT Office Visit [facility] [address] [place] [address] [address] [place] [phone] Jalen Pierce MD [facility] [employer], [address] [place] [address] [facility] Start: 12-03-2023 End: 12-02-2024 XR Elbow - right 3 Views X-ray elbow right minimum 3 views Imaging Routine Right elbow pain Expected: 12/03/2023, Expires: 12/02/2024 [facility] Work Phone: Comment on above: Expected: 12/03/2023, Expires: Start: 12-03-2023 End: 12-02-2024 XR Shoulder - left 2 Views X-ray shoulder left minimum 2 views Imaging Routine Chronic left shoulder pain Expected: 12/03/2023, Expires: 12/02/2024 [facility] on above: Expected: 12/03/2023, Expires: Start: 11-24-2023 End: 02-23-2024 XR Elbow - right 3 Views X-ray elbow right minimum 3 views Imaging Routine Morbid obesity with BMI of 40.0-44.9, adult ([facility]) S/P revision of total hip Right elbow pain Chronic left shoulder pain Expected: 11/24/2023, Expires: 02/23/2024 [facility] Comment on above: Expected: 11/24/2023, Expires: Start: 11-24-2023 End: 02-23-2024 XR Femur - left 2 Views X-ray femur left 2+ views Imaging Routine Morbid obesity with BMI of 40.0-44.9, adult ([facility]) S/P revision of total hip Right elbow pain Chronic left shoulder pain Expected: 11/24/2023, Expires: 02/23/2024 [facility] Comment on above: Expected: 11/24/2023, Expires: Start: 11-24-2023 End: 02-23-2024 XR Shoulder - left 2 Views X-ray shoulder left minimum 2 views Imaging Routine Morbid obesity with BMI of 40.0-44.9, adult ([facility]) S/P revision of total hip Right elbow pain Chronic left shoulder pain Expected: 11/24/2023, Expires: 02/23/2024 [facility] Work Phone: Comment on above: Expected: 11/24/2023, Expires: Start: 11-23-2023 End: 11-23-2023 Patient encounter procedure 11/23/2023 9:15 AM EDT Office Visit [facility] [address] [place] [address] Sam Hancock MD [address] [place] [address] [facility] Start: 10-22-2023 End: 10-22-2023 Patient encounter procedure 10/22/2023 10:45 AM EST Office Visit [facility] [address] [place] [phone] Wilfredo Keen, [address] [address] [place] [address] [facility] Start: 10-15-2023 End: 10-15-2023 Admission to same day surgery center 10/15/2023 10:15 AM EST - 10/15/2023 12:15 PM EST Surgery [facility] [address] [place] [address] Wilfredo Keen, DO [address] [place] [address] REPLACEMENT TOTAL JOINT HIP [81276 (CPT )] [facility] Comment on above: REPLACEMENT TOTAL JOINT HIP [84307 (CPT )] Start: 10-15-2023 End: 10-15-2023 Arthrp acetblr/prox fem prostc agrft/algrft REPLACEMENT TOTAL JOINT HIP left hip degenerative joint disease 10/15/2023 10:15 AM [facility] Start: 10-15-2023 Subsequent hospital visit by physician 10/15/2023 10:15 AM EST Hospital Encounter [facility] - Surgery [address] [place] [address] Wilfredo Keen, DO [address] [place] [address] [facility] Start: 10-15-2023 End: 10-15-2023 Patient encounter procedure 10/15/2023 7:30 AM EST Procedure Visit [facility] Wilfredo Keen, DO [address] [place] [address] [facility] Start: 10-05-2023 End: 09-15-2024 Crossmatch RBC Crossmatch RBC Blood Bank Routine Preop examination Hypertension, unspecified type Atrial fibrillation, unspecified type ([facility]) BMI 40.0-44.9, adult ([facility]) Expected: 10/05/2023, Expires: 09/15/2024 [facility] Comment on above: Expected: 10/05/2023, Expires: Start: 10-05-2023 End: 09-15-2024 Type and screen(includes indirect eloisa) Type and screen(includes indirect eloisa) Blood Bank Routine Preop examination Hypertension, unspecified type Atrial fibrillation, unspecified type ([facility]) BMI 40.0-44.9, adult ([facility]) Expected: 10/05/2023, Expires: 09/15/2024 [facility] Work Phone: Comment on above: Expected: 10/05/2023, Expires: Start: 04-24-2023 COVID-19 Vaccine () COVID-19 Vaccine () [facility] Start: 04-24-2023 Influenza vaccination [facility] Start: 03-23-2022 Screening for malignant neoplasm of colon FIT-DNA [facility] Start: 2017 Administration of varicella zoster vaccine Zoster (Shingles) Vaccine (1 of 2) [facility] Start: 2007 Screening for malignant neoplasm of breast Mammogram [facility] Start: 1997 Screening for malignant neoplasm of cervix [facility] Start: 1988 Screening for malignant neoplasm of cervix Pap Smear [facility] Start: 1986 DTaP,Tdap and Td Vaccines (1 - Tdap) DTaP,Tdap and Td Vaccines (1 - Tdap) [facility] Start: 1985 Adult BMI Follow Up Plan Adult BMI Follow Up Plan [facility] Start: 1979 Depression Screening Depression Screening [facility] Start: 1967 Screening for malignant neoplasm of colon [facility] Start: 1967 Screening for malignant neoplasm of lung Lung Cancer Screening Shared Decision Making [facility] End: 07-20-2025 Unlisted Procedure / Surgery Unlisted Procedure / Surgery Procedures Routine Bleeding internal hemorrhoids 1 Occurrences starting 07/20/2024 until 07/20/2025 [facility] Work Phone: Comment on above: 1 Occurrences starting 07/20/2024 until 07/20/2025 Immunizations Immunization Date Immunization Notes Care Provider Lindsey walden 03-20-2021 influenza virus vacc ine, unspecified formulation Pmh 1 [facility] Payers Date Payer Category Payer Medicaid [id number] 2024 Medicaid [id number] 2023 Self-pay 2023 Managed Care HMO (unspecified) [id number] 2023 Unknown MYKE HOPKINSJOHN LITZY MYKE BOJORQUEZMIROSLAVAAbner GUSCHRISSY [id number] 2023-Present [phone] [address] [place] [address] [id number]. [id number] 2023 Unknown [id number] 2018 Private Health Insurance [id number]. [id number] 1967 Unknown [id number] 2.16.840.1.449238.3.579.2. 593 1967 Unknown [id number] 2.16.840.1.070426.3.579.2. 593 1967 Unknown [id number] 2.16.840.1.552397.3.579.2. 593 1967 Unknown [id number] 2.16.840.1.933618.3.579.2. 593 1967 Unknown [id number] 2.16.840.1.022967.3.579.2. 593 1967 Unknown [id number] 2.16.840.1.759696.3.579.2. 593 1967 Unknown [id number] 2.16.840.1.870143.3.579.2. 593 1967 Unknown [id number] 2.16.840.1.966334.3.579.2. 593 1967 Unknown [id number] 2.16.840.1.308045.3.579.2. 593 1967 Unknown [id number] 2.16.840.1.109273.3.579.2. 593 1967 Unknown [id number] 2.16.840.1.081054.3.579.2. 593 1967 Unknown [id number] 2.16.840.1.489669.3.579.2. 593 1967 Unknown [id number] 2.16.840.1.125451.3.579.2. 593 1967 Unknown [id number] 2.16.840.1.984778.3.579.2. 718 1967 Unknown [id number] 2.16.840.1.532337.3.579.2. 1286 1967 Unknown [id number] 2.16.840.1.695390.3.579.2. 1285 1967 Unknown [id number] 2.16.840.1.473289.3.579.2. 128 1967 Unknown [id number] 2.16.840.1.901706.3.579.2. 1285 1967 Unknown [id number] 2.16.840.1.096746.3.579.2. 128 1967 Unknown [id number] 2.16.840.1.845839.3.579.2. 128 1967 Unknown [id number] 2.16.840.1.665259.3.579.2. 128 1967 Unknown [id number] 2.16.840.1.102131.3.579.2. 1286 1967 Unknown [id number] 2.16.840.1.118266.3.579.2. 128 1967 Unknown [id number] 2.16.840.1.301113.3.579.2. 1285 1967 Unknown [id number] 2.16.840.1.320235.3.579.2. 1285 1967 Unknown [id number] 2.16.840.1.050248.3.579.2. 1285 1967 Unknown [id number] 2.16.840.1.326717.3.579.2. 1285 1967 Unknown [id number] 2.16.840.1.222712.3.579.2. 1285 1967 Unknown [id number] 2.16.840.1.763854.3.579.2. 1285 1967 Unknown [id number] 2.16.840.1.187610.3.579.2. 1285 1967 Unknown [id number] 2.16.840.1.443805.3.579.2. 1285 1967 Unknown [id number] 2.16.840.1.005274.3.579.2. 1285 1967 Unknown [id number] 2.16.840.1.173110.3.579.2. 1285 1967 Unknown [id number] 2.16.840.1.819835.3.579.2. 1285 1967 Unknown [id number] 2.16.840.1.837156.3.579.2. 1285 1967 Unknown [id number] 2.16.840.1.026691.3.579.2. 1285 1967 Unknown [id number] 2.16.840.1.420407.3.579.2. 1285 1967 Unknown [id number] 2.16.840.1.354479.3.579.2. 1258 1967 Unknown [id number] 2.16.840.1.069202.3.579.2. 1259 1967 Unknown [id number] 2.16.840.1.926971.3.579.2. 9 1967 Unknown [id number] 2.16.840.1.055484.3.579.2. 1259 1967 Unknown [id number] 2.16.840.1.342460.3.579.2. 9 1967 Unknown [id number] 2.16.840.1.525891.3.579.2. 9 1967 Unknown [id number] 2.16.840.1.182778.3.579.2. 9 1967 Unknown [id number] 2.16.840.1.770412.3.579.2. 9 1967 Unknown [id number] 2.16.840.1.321630.3.579.2. 9 1959 Unknown [id number] Social History Date Type Detail Facility Start: 09-01-2023 End: 09-07-2024 Tobacco smoking status ALIS Ex-smoker [facility] Start: 08-24-1982 End: 08-24-2012 History of tobacco use Current smoker [facility] Start: 08-24-1982 End: 08-24-2012 History of tobacco use Cigarette Smoker [facility] Start: 09-01-2023 End: 03-01-2025 Cigarettes smoked current (pack per day) - Reported 1 [facility] Start: 09-24-2023 End: 03-01-2025 Alcohol intake Current drinker of alcohol (finding) [facility] Start: 08-21-2023 End: 03-01-2025 Alcohol Use [...] drinks on 1 occasion? Never [facility] Start: 1965 Sex Assigned At Not on file [facility] Start: 09-18-2023 End: 01-21-2024 Tobacco use and exposure Smokeless tobacco non-user [facility] Has the electric, [employer], [employer], or water company threatened to shut off services in your home in past 12Mo No [facility] In the past 12 month s, has lack of transportation kept you from medical appointments or from getting medications? No [facility] Start: 03-29-2015 Sex Female (finding) [facility] Medical Equipment Procedure Code Equipment Code Equipment Origin al Text Equipment Identifier Dates Assembly Cblpn [address] Cocr Crlge Strl Rpl [id number] - [id number] Start: 11-09-2023 Assembly Cblpn [address] Cocr Crlge Strl Rpl [id number] - [id number] Start: 11-09-2023 Assembly Cblpn [address] Cocr Crlge Strl Rpl [id number] - [id number] Start: 11-09-2023 Shell Actb 44mm Hip 3 Hl Clr Cd [place] G7 A Hmsphr - Sna - [id number] Start: 10-15-2023 Stem Fem 137d 1 08/06 37mm Fitmore Protasul-64 Hip Rgh Blast - Sna - [id number] Start: 10-15-2023 Head Fem 28mm +3 .5mm 08/06 Lg Trlg It Contin Blx D Hip Actb - Sna - [id number] Start: 10-15-2023 G7 Acetabular Systemvivacit-E Highly Crosslinked Polyethylene Liner High Wall [id number] Start: 10-15-2023 Shell Actb 48mm Hip Mlhl Clr Cd [place] G7 C Hmsphr - [id number] Start: 11-09-2023 Shani Modular Re vision Hip System Sts Distal Stem [id number] Start: 11-09-2023 Liner Actb 32mm C Vivacit-E Lum G7 Hip Strl Lf - [id number] Start: 11-09-2023 Body Cone Hip Fe m C Std Os 60mm Shani Ti Strl Mdlr Rev Sys Rpl [id number] - [id number] Start: 11-09-2023 Biolox Delta Mod ular Ceramic Head [id number] Start: 11-09-2023 Screw Bn 25mm 6. [address]mm [address] Hip Trlg Strl Rpl [id number] - Sna - [id number] Start: 10-15-2023 Screw Bn 30mm 6. [address] Actb Giovani Trlg Strl Rpl [id number] - Sna - [id number] Start: 10-15-2023 Screw Bn 20mm 6. [address] Hip Actb Trlg Strl Rpl [id number] - [id number] Start: 11-09-2023 Screw Bn 50mm 6. [address] Hip Trlg Strl Rpl [id number] - [id number] Start: 11-09-2023 Screw Bn 15mm 6. [address] Hip Actb Trlg Strl Rpl [id number] - [id number] Start: 11-09-2023 Screw Bn 15mm 6. [address]mm [address] Hip Actb Trlg Strl Rpl [id number] - [id number] Start: 11-09-2023 Goals Date Patient Goal [...] palpitations. Associated Problem(s): Post-menopausal bleeding Follow with research consultant. Associated Problem(s): Paroxysmal atrial fibrillation (HCC) In [...] Continue albuterol PRN. Post-menopausal bleeding Follow with research consultant. Gouty arthritis Start allopurinol. Relevant Medications allopurinol (Zyloprim) 300 MG tablet Preoperative clearance - Primary Able to proceed with surgery at low risk for complications pending results of echo. Seen by cardiology for clearance. No chest pain or palpitations. Paroxysmal atrial fibrillation (HCC) In NSR and continue medication. documented in this encounter [facility] 02-20-2025 History of Present illness Narrative Reason for Appointment: Patient ID: Og Badillo is a 59 y.o. female who presents for Pre-op Visit Patient presents today for Pre Op appointment. Patient is scheduled to undergo D&C Hysteroscopy, possible Myosure on 03-17-[address] Davidson at [facility]. MEDICATIONS Current Outpatient Medications Medication Instructions allopurinol [...] Major depressive disorder, recurrent episode, moderate degree ([facility]) 09/24/2023 Class 3 severe obesity due to excess calories with serious comorbidity and body mass index (BMI) of 45.0 to 49.9 in adult ([facility]) 09/24/2023 Status post total hip replacement, left 10/18/2023 Bleeding hemorrhoids 06/21/2024 Encounter for long-term (current) use of medications 06/21/2024 Edema of both legs 07/01/2024 Globus sensation 09/05/2024 COPD (chronic obstructive pulmonary disease) ([facility]) 09/05/2024 Post-menopausal bleeding 01/10/2025 Gouty arthritis 01/10/2025 General weakness 01/25/2025 Impaired functional mobility, balance, gait, and endurance 01/25/2025 History of 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 joint 01/25/2025 Resolved Ambulatory Problems Diagnosis Date Noted Chronic kidney disease, stage III (moderate) ([facility]) 09/03/2023 Encounter for preoperative assessment 09/24/2023 Acute postoperative pain of left hip 10/18/2023 Past Medical History: Diagnosis Date 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, midfoot Atrial fibrillation (HCC) Benign essential hypertension Chronic gastritis without bleeding CKD (chronic kidney disease), stage III ([facility]) JIGNA (generalized anxiety disorder) Generalized osteoarthritis of [...] ankle CKD (chronic kidney disease), stage III ([facility]) DDD (degenerative disc disease), lumbar Equinus contracture [...] Types: Cigarettes Start date: 1982 Quit date: 2013 Years since quittin.5 Smokeless tobacco: Not on [...] NERVE 2020 Ispine -Dr. Clay OOPHORECTOMY Right AR KNEE SCOPE,DIAGNOSTIC Right 1997 TOTAL HIP ARTHROPLASTY [...] nursing note reviewed. Exam conducted with a graining press operator present. Vitals: Estimated body mass index is [...] reviewed, and patient is to proceed to [facility] OR. Follow Up: Patient is to follow up between 1-2 weeks post operative to assess proper healing and recovery from procedure. Documented by Marium Altamirano LPN on behalf of: Azeem Davidson DO documented in this encounter [facility] 02-13-2025 Note IN Cardiology - [facility] Subjective Og Bdaillo is a 59 y.o. year old female [...] Yes Comment: occasional Drug use: Never KELLY George is seen in follow-up. This is the first time I am meeting her. Last visit with us was 07/24/2022. She is a 59-year-old woman with history of paroxysmal atrial fibrillation, hypertension and hypothyroidism. she reports having had 2 episodes of atrial fibrillation prior to 2019 COVID. No recurrence that she can tell. She has been maintained on aspirin due to low [id number] score. She needs to undergo D&C. She was referred by her MEDICAL EDITOR for preoperative evaluation. she denies chest pain, [...] day., Disp: , (more content not included)... [facility] 02-01-2025 History of Present illness Narrative Images [...] at this time. documented in this encounter [facility] 01-25-2025 History of Present illness Narrative [...] Mechanism of Onset: hx of L ALIN 2/22/24, revision due to femur Fx 11/09/23 complications [...] sign below. Date: documented in this encounter [facility] 01-10-2025 History of Present illness Narrative [...] of ankle, left 09/03/2023 Essential hypertension, benign ([facility]) 09/03/2023 Bone cyst of left ankle 09/03/2023 Chronic gastritis 09/03/2023 Chronic left shoulder pain 09/03/2023 Chronic pain of left ankle 09/03/2023 DDD (degenerative disc disease), lumbar 09/03/2023 Equinus contracture of left ankle 09/03/2023 Generalized anxiety disorder ([facility]) 09/03/2023 Generalized osteoarthrosis, involving multiple sites 09/03/2023 Adult hypothyroidism ([facility]) 09/03/2023 Posterior tibial tendon dysfunction, left 09/03/2023 Prediabetes 09/03/2023 Tear of deltoid ligament of ankle, sequela 09/03/2023 Acquired varus deformity of left foot 09/03/2023 Primary osteoarthritis of left hip 09/09/2023 Major depressive disorder, recurrent episode, moderate degree ([facility]) 09/24/2023 Class 3 severe obesity due to excess calories with serious comorbidity and body mass index (BMI) of 45.0 to 49.9 in adult 09/24/2023 Status post total hip replacement, left 10/18/2023 Bleeding hemorrhoids 06/21/2024 Encounter for long-term (current) use of medications 06/21/2024 Edema of both legs 07/01/2024 Globus sensation 09/05/2024 COPD (chronic obstructive pulmonary disease) ([facility]) 09/05/2024 Post-menopausal bleeding 01/10/2025 Resolved Ambulatory Problems Diagnosis Date Noted Chronic kidney disease, stage III (moderate) ([facility]) ([facility]) 09/03/2023 Encounter for preoperative assessment 09/24/2023 Acute postoperative pain of left hip 10/18/2023 Past Medical History: Diagnosis Date 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, midfoot Atrial fibrillation (CMS/HCC) Benign essential hypertension (CMS/HCC) Chronic gastritis without bleeding CKD (chronic kidney disease), stage III (HCC) (CMS/HCC) JIGNA (generalized anxiety disorder) (CMS/HCC) Generalized osteoarthritis of multiple sites Hypertension (CMS/HCC) Hypothyroidism, adult (CMS/HCC) Insomnia, persistent Right elbow pain Thyroid dysfunction (CMS/HCC) Varus foot deformity, acquired, left HISTORY PAST MEDICAL HISTORY SOCIAL HISTORY Past Medical History: Diagnosis Date 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 of ankle, left Arthritis, midfoot Atrial fibrillation (CMS/HCC) Benign essential hypertension (CMS/HCC) Bone cyst of left ankle Chronic gastritis without bleeding Chronic left shoulder pain Chronic pain of left ankle CKD (chronic kidney disease), stage III (HCC) (CMS/HCC) DDD (degenerative disc disease), lumbar Equinus contracture of left ankle JIGNA (generalized anxiety disorder) (CMS/HCC) Generalized osteoarthritis of multiple sites Hypertension (CMS/HCC) Hypothyroidism, adult (CMS/HCC) Insomnia, persistent Posterior tibial tendon dysfunction, left [...] NERVE 2020 Ispine -Dr. Clay OOPHORECTOMY Right AR KNEE SCOPE,DIAGNOSTIC Right 1997 AR TOTAL ANKLE REPLACEMENT Left TOTAL HIP ARTHROPLASTY [...] nursing note reviewed. Exam conducted with a graining press operator present. Vitals: Estimated body mass index is [...] Pt to return for preop. Documented by Marium Altamirano LPN on behalf of: Azeem Davidson DO documented in this encounter [facility] 01-04-2025 History of Present illness Narrative [...] Bilateral screening mammogram documented in this encounter [facility] 12-13-2024 Miscellaneous Notes MESSAGE LEFT FOR PT TO RETURN CALL TO RESCHEDULE APPT. SHE WILL ASK FOR ALISSON. I ALSO CALLED HER DAUGHTER CLAUDINE. HER MAIL BOX IS FULL. [facility] Telephone encounter Note MESSAGE LEFT FOR PT TO RETURN CALL TO RESCHEDULE APPT. SHE WILL ASK FOR ALISSON. I ALSO CALLED HER DAUGHTER CLAUDINE. HER MAIL BOX IS FULL. [facility] 10-28-2024 Miscellaneous Notes EMPANELMENT OUTREACH Og Badillo has been contacted in effort to establish and/or re-establish care as a new patient with [facility]: Yes Outreach Date: October 28, 2024 Outreach Reason: Attribution Outreach Method: Telephone and Letter Outreach Attempt: First Attempt Outreach Outcome: Left Message and Letter Sent New Patient Appointment: NA Attributed Provider: Christy Tucker CNP Additional Comments: PCP is accepting new patients. Unable to reach patient by telephone. Letter sent regarding how to establish care. documented in this encounter [facility] 10-28-2024 Telephone encounter Note EMPANELMENT OUTREACH Og Badillo has been contacted in effort to establish and/or re-establish care as a new patient with [facility]: Yes Outreach Date: October 28, 2024 Outreach Reason: Attribution Outreach Method: Telephone and Letter Outreach Attempt: First Attempt Outreach Outcome: Left Message and Letter Sent New Patient Appointment: NA Attributed Provider: Christy Tucker CNP Additional Comments: PCP is accepting new patients. Unable to reach patient by telephone. Letter sent regarding how to establish care. [facility] 09-07-2024 History of Present illness Narrative [...] of ankle, left 09/03/2023 Essential hypertension, benign ([facility]) 09/03/2023 Bone cyst of left ankle 09/03/2023 Chronic gastritis 09/03/2023 Chronic left shoulder pain 09/03/2023 Chronic pain of left ankle 09/03/2023 DDD (degenerative disc disease), lumbar 09/03/2023 Equinus contracture of left ankle 09/03/2023 Generalized anxiety disorder ([facility]HCC) 09/03/2023 Generalized osteoarthrosis, involving multiple sites 09/03/2023 Adult hypothyroidism ([facility]) 09/03/2023 Posterior tibial tendon dysfunction, left 09/03/2023 Prediabetes 09/03/2023 Tear of deltoid ligament of ankle, sequela 09/03/2023 Acquired varus deformity of left foot 09/03/2023 Primary osteoarthritis of left hip 09/09/2023 Major depressive disorder, recurrent episode, moderate degree ([facility]) 09/24/2023 Class 3 severe obesity due to excess calories with serious comorbidity and body mass index (BMI) of 45.0 to 49.9 in adult ([facility]) 09/24/2023 Status post total hip replacement, left 10/18/2023 Bleeding hemorrhoids 06/21/2024 Encounter for long-term (current) use of medications 06/21/2024 Edema of both legs 07/01/2024 Globus sensation 09/05/2024 COPD (chronic obstructive pulmonary disease) ([facility]) 09/05/2024 Resolved Ambulatory Problems Diagnosis Date Noted Chronic kidney disease, stage III (moderate) (HCC) ([facility]) 09/03/2023 Encounter for preoperative assessment 09/24/2023 Acute postoperative pain of left hip 10/18/2023 Past Medical History: Diagnosis Date 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, midfoot Atrial fibrillation ([facility]) Benign essential hypertension ([facility]) Chronic gastritis without bleeding CKD (chronic kidney disease), stage III (HCC) ([facility]) JIGNA (generalized anxiety disorder) ([facility]) Generalized osteoarthritis of multiple sites Hypertension ([facility]) Hypothyroidism, adult ([facility]) Insomnia, persistent Right elbow pain Thyroid dysfunction (CMS/HCC) Varus foot deformity, acquired, left Past Surgical History: Procedure Laterality Date ANKLE ARTHROPLASTY BACK SURGERY DILATION AND CURETTAGE OF UTERUS 07/2023 IR ABLATION NERVE 2020 Ispine -Dr. Clay OOPHORECTOMY Right AR KNEE SCOPE,DIAGNOSTIC Right 1997 AR TOTAL ANKLE REPLACEMENT Left TOTAL HIP ARTHROPLASTY [...] and short neck. documented in this encounter [facility] 09-05-2024 History of Present illness Narrative Associated Problem(s): Class 3 severe obesity due to excess calories with serious comorbidity and body mass index (BMI) of 45.0 to 49.9 in adult ([facility]) Weight loss indicated. Associated Problem(s): Major depressive disorder, recurrent episode, moderate degree ([facility]) Feels like doing well without medication and monitor. Associated Problem(s): Globus sensation C/o tickle in throat but unclear etiology. Possibly related to reflux or COPD. Anesthesia requests direct visualization of vocal cords and refer to ENT. Associated Problem(s): DDD (degenerative disc disease), lumbar Worsening pain and start flexeril PRN. Associated Problem(s): COPD (chronic obstructive pulmonary disease) ([facility]) Symptoms worse and start symbicort. Continue albuterol [...] depressive disorder, recurrent episode, moderate degree (CMS/HCC) Feels like doing well without medication and monitor. Class 3 severe obesity due to excess calories with serious comorbidity and body mass index (BMI) of 45.0 to 49.9 in adult (CMS/HCC) Weight loss indicated. Globus sensation - Primary C/o tickle in throat but unclear etiology. Possibly related to reflux or COPD. Anesthesia requests direct visualization of vocal cords and refer to ENT. Relevant Orders Ambulatory referral to ENT COPD (chronic obstructive pulmonary disease) ([facility]) Symptoms worse and start symbicort. Continue albuterol PRN. Relevant Medications budesonide-formoterol (Symbicort) 160-4.5 MCG/ACT inhaler documented in this encounter [facility] 08-02-2024 Miscellaneous Notes A clearance was [...] a clearance till August 2024. I called [facility] surgery coordinator and cancelled the surgery. I also called the patient to inform her. She is going to call Dr. Hancock's office to schedule an appointment and I'm going to fax over a clearance. The surgery schedule will be adjusted for the cancellation. documented in this encounter [facility] 08-02-2024 Telephone encounter Note A clearance [...] a clearance till August 2024. I called [facility] surgery coordinator and cancelled the surgery. I also called the patient to inform her. She is going to call Dr. Hancock's office to schedule an appointment and I'm going to fax over a clearance. The surgery schedule will be adjusted for the cancellation. [facility] 07-29-2024 Instructions Nati Clark RN - 07/29/2024 8:15 AM EST Preoperative Education Checklist- General Surgery date: 08/09/24 Surgery time: 845a Arrival time: 645a 1. Bring a photo ID and your insurance card with you the day of surgery. You will check in at the main lobby of the [facility]- registration desk is straight ahead as soon as you walk in. Tell them you are here for surgery. 2. If you have a Living Will/Durable Power of Farm Equipment Service Technician for Health Care that is not on [...] after you have bathed. 5. NO nail puerto rican/acrylic on at least one finger. If you are having a hand, wrist or foot surgery then all nail puerto rican and artificial/acrylic nails must be removed from [...] please call the Preadmission Testing office at [phone], Mon.-Fri. 7 a.m.-3 p.m. Leave a voicemail [...] prior to procedure documented in this encounter [facility] 07-29-2024 Nurse Note Pt arrives in wheelchair, appears short of breath with conversation, coughing frequently. Pt states the increased shortness of breath is new within the last 2 months and she was seen in [place] ED recently. Pt reports coughing at home and passing out . Dr. Cox in office to assess patient during PAT appt. ENT clearance recommended. Romi at Dr. Garcia' office notified. [facility] 07-29-2024 Miscellaneous Notes Pt arrives in wheelchair, appears short of breath with conversation, coughing frequently. Pt states the increased shortness of breath is new within the last 2 months and she was seen in [place] ED recently. Pt reports coughing at home and passing out . Dr. Cox in office to assess patient during PAT appt. ENT clearance recommended. Romi at Dr. Garcia' office notified. documented in this encounter [facility] 07-20-2024 Miscellaneous Notes Og was called & scheduled for 08/09/24 @ 8:45 am with an arrival time of 6:45 am for a hemorrhoidectomy. PAT appt. is 07/27/24 @ 10:30 am. Anesthesia to be used general per Adia Iglesias NP. Hard copy was put in the mail. documented in this encounter [facility] 07-20-2024 Telephone encounter Note Og was called & scheduled for 08/09/24 @ 8:45 am with an arrival time of 6:45 am for a hemorrhoidectomy. PAT appt. is 07/27/24 @ 10:30 am. Anesthesia to be used general per Adia Iglesias NP. Hard copy was put in the mail. [facility] 07-20-2024 History of Present illness Narrative [...] 11/09/2023 Performed by Jalen Pierce MD at [facility] ARTHROSCOPY KNEE x 2 BACK SURGERY 2021 nerve cautery DILATION AND CURETTAGE OF UTERUS 07/2023 dyan JOINT REPLACEMENT Right hip- done in [place] LAPAROTOMY SALPINGO OOPHORECTOMY Left REPLACEMENT TOTAL JOINT HIP Left 10/15/2023 Performed by Wilfredo Keen DO at [facility] REVISION TOTAL JOINT HIP Left 11/09/2023 Performed by Jalen Pierce MD at [facility] Allergies Allergen Reactions Demerol [Meperidine] Hives Current [...] Objective Physical Exam Exam conducted with a graining press operator present. Constitutional: General: She is not in [...] Referring and communicating with other health childcare center administrator Bleeding internal hemorrhoids [K64.8] ADIA IGLESIAS, HALVER MACHINE OPERATOR-FLOOR WORKER [employer]LL [employer] [facility] [place] This note was created with the assistance of a speech recognition program. While intending to generate a timely document that accurately reflects the content of the visit, no guarantee can be provided that every grammatical or spelling mistake has been or will be identified or corrected. Thank you for your understanding. ELI Mercedes 07/20/24 [id number] documented in this encounter [facility] 06-21-2024 History of Present illness Narrative [...] periprosthetic fracture of femoral component. Transferred to [place] and had revision 11/08. Continued pain and [...] panel Morbid obesity due to excess calories (CMS/HCC) documented in this encounter [facility] 04-28-2024 History of Present illness Narrative [...] an updated handicap placard for the state [facility] on request. 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 Finalized by Alexis Meade MD on 01/23/2024 7:27 AM [facility] 01-21-2024 History of Present illness Narrative CC: [...] x-rays, may do telemedicine visit if desired RITA DOYLE PA-C [facility] post op global ORTHOPAEDIC SURGERY ATTENDING NOTE I, Jalen Pierce MD, personally performed the face to face evaluation on this patient. I discussed with the patient and confirmed the accuracy and completeness of the aforementioned history prepared by the wynot practice provider, and I personally performed the [...] JALEN PIERCE MD documented in this encounter [facility] 12-09-2023 Miscellaneous Notes EMPANELMENT OUTREACH Og Badillo [...] her insurance company. documented in this encounter [facility] 12-09-2023 Telephone encounter Note EMPANELMENT OUTREACH [...] provider and will update her insurance company. [facility] 12-09-2023 Miscellaneous Notes ADRIENNE Gastelum from [facility] called in stated that they are discharging patient from home health services that patient is doing well and driving. She would like patient to have an order for outpatient physical therapy placed. Patient would like to go to [facility] in [place], [place] phone: [phone] fax: [phone]. If any questions for ADRIENNE Gastelum she can be reached at [phone]. Spoke with patient to inform her outpatient physical therapy script will be faxed to [facility] physical therapy documented in this encounter [facility] 12-09-2023 Telephone encounter Note ADRIENNE Gastelum from [facility] called in stated that they are discharging patient from home health services that patient is doing well and driving. She would like patient to have an order for outpatient physical therapy placed. Patient would like to go to [facility] in [place], [place] phone: [phone] fax: [phone]. If any questions for ADRIENNE Gastelum she can be reached at [phone]. [facility] 12-09-2023 Telephone encounter Note Spoke with patient to inform her outpatient physical therapy script will be faxed to [facility] physical therapy [facility] 12-07-2023 Miscellaneous Notes Patient is calling to ask for a refill of percocet. She would like this sent to the [facility] in [place] on [address] (only pharmacy on file). Please call to discuss if refill cannot be processed - [phone]. Patient utilizing tylenol and percocet for pain [...] pain treatment needs. documented in this encounter [facility] 12-07-2023 Telephone encounter Note Patient is calling to ask for a refill of percocet. She would like this sent to the [facility] in [place] on [address] (only pharmacy on file). Please call to discuss if refill cannot be processed - [phone]. [facility] 12-07-2023 Telephone encounter Note Patient utilizing [...] on the injury and pain treatment needs. [facility] 11-24-2023 History of Present illness Narrative [...] no blisters No visible deformity of LE. [place] removed. Motor: hip flexors 5/5, hip extensors [...] time of the next office visit. Jalen Pirece MD documented in this encounter [facility] 10-17-2023 Hospital course Narrative Summary: Status post left hip replacement Orthopaedic Discharge Summary Patient ID: Og Badillo [id number] y.o. 1965 Admit date: 10/15/2023 Discharge [...] Closure: Deep and Superficial Layers Hospital Course:See [facility] inpatient notes for specifics Patient was admitted [...] Wilfredo Keen DO [facility] Plan of care note Problem: Safety [...] at the bedside 7. Instruct patient/ patient sales representative graphic art about use of safety devices 8. Include patient/ patient sales representative graphic art in decisions related to safety Outcome: Progressing Note: Evaluation of progress towards goal: Safety measures initiated/maintained. Pt remains safe from harm/injury/falls Problem: Knowledge Deficit Goal: Patient/patient sales representative graphic art demonstrates understanding of disease process, treatment plan, medications, and discharge instructions Description: INTERVENTIONS 1. Complete learning assessment and assess knowledge base 2. Provide teaching at level of understanding 3. Provide teaching via preferred learning method(s) Outcome: Progressing Note: Evaluation of progress towards goal: POC discussed with patient. Questions [facility] 10-17-2023 Miscellaneous Notes Problem: Safety Goal: Patient [...] at the bedside 7. Instruct patient/ patient sales representative graphic art about use of safety devices 8. Include patient/ patient sales representative graphic art in decisions related to safety Outcome: Progressing Note: Evaluation of progress towards goal: Safety measures initiated/maintained. Pt remains safe from harm/injury/falls Problem: Knowledge Deficit Goal: Patient/patient sales representative graphic art demonstrates understanding of disease process, treatment plan, [...] Date/Time User Outcome 10/17/23 0829 Ravinder Sandra, BIODIESEL TECHNOLOGY MANAGER Progressing 10/16/23 1320 Sabina Helms, PT Progressing [...] Date/Time User Outcome 10/17/23 0829 Ravinder Sandra, BIODIESEL TECHNOLOGY MANAGER Progressing 10/16/23 1320 Sabina Helms, PT Progressing [...] at the bedside 7. Instruct patient/ patient sales representative graphic art about use of safety devices 8. Include patient/ patient sales representative graphic art in decisions related to safety Outcome: Progressing [...] hygiene technique 7. Identify and instruct patient/patient sales representative graphic art in use of appropriate isolation precautions for identified infection/symptoms 8. Provide and discuss with patient/patient sales representative graphic art on educational MDRO sheet 9. Encourage and monitor nutritional status daily and consult veneer jointer operator if indicated 10. Implement neutropenic guidelines as needed 11. Review exposure to history of communicable disease and recent travel history on admission 12. Encourage annual influenza vaccine 13. Encourage pneumonia vaccine Outcome: Progressing Note: Evaluation of progress towards goal: No s/sx of infection Problem: Knowledge Deficit Goal: Patient/patient sales representative graphic art demonstrates understanding of disease process, treatment plan, [...] belt Weight Bearing Status: WBAT L LE Telemetry/Director Of Global Talent: Yes Other: S/P L ALIN Pain Assessment [...] belt Weight Bearing Status: WBAT L LE Telemetry/Director Of Global Talent: Yes Other: S/P L ALIN Pain Assessment [...] Disciplines: PT Outcomes Date/Time User Outcome 10/16/23 Mirta Helms PT Not Progressing Goal note from [...] cautery DILATION AND CURETTAGE OF UTERUS 07/2023 dyan JOINT REPLACEMENT Right hip- done in [place] LAPAROTOMY SALPINGO OOPHORECTOMY Left Past Medical History: [...] belt Weight Bearing Status: WBAT L LE Telemetry/Director Of Global Talent: Yes Oxygen Used: room air Other: fall [...] transfers or gait Homemaking Assistance: Independent 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 Encourage patient or legal sales representative graphic art to report early pain and ask for [...] per policy 9. Teach patient or legal sales representative graphic art interventions for comforting Outcome: Progressing Note: Evaluation [...] at the bedside 7. Instruct patient/ patient sales representative graphic art about use of safety devices 8. Include patient/ patient sales representative graphic art in decisions related to safety Outcome: Progressing [...] hygiene technique 7. Identify and instruct patient/patient sales representative graphic art in use of appropriate isolation precautions for identified infection/symptoms 8. Provide and discuss with patient/patient sales representative graphic art on educational MDRO sheet 9. Encourage and monitor nutritional status daily and consult veneer jointer operator if indicated 10. Implement neutropenic guidelines as needed 11. Review exposure to history of communicable disease and recent travel history on admission 12. Encourage annual influenza vaccine 13. Encourage pneumonia vaccine Outcome: Progressing Note: Evaluation of progress towards goal: Problem: Knowledge Deficit Goal: Patient/patient sales representative graphic art demonstrates understanding of disease process, treatment plan, [...] Description: INTERVENTIONS: 1. Encourage patient or legal sales representative graphic art to report early pain and ask for [...] per policy 9. Teach patient or legal sales representative graphic art interventions for comforting Outcome: Progressing Note: Evaluation of progress towards goal: Pt able to report pain according to 0/10 pain scale. Medicating patient for pain per orders. Images from the original note were not included. DISCHARGE PLANNING NOTE 10/15/23 2977 Discharge Disposition Discharge Disposition Home with Self Care County Information [facility] of [facility] Patient Information Primary Caregiver Self Support System Immediate family (14 yr old dtr Yamilka & 20 year old daughter Claudine) Stressors Type of stressor (does not endorse) Income Information Income Information Employed ([employer]) Referral To Community Resources Denies needs Discharge Planning Living Arrangements Minor Child(fabrizio);Private Residence Support Systems Children Assistance Needed has walker Type of Residence Private residence Private Residence [address] [place] Residence Accessibility Steps into home Number of [...] depression or other mental health concerns. Negative [place] screen. Pt provides own transportation; oldest daughter will be able to assist at [place]. 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 Pt relayed her 14 yr old Yamilka will be available to assist & oldest daughter Claudine as well. Patient's preferred pharmacy is [email or web address]. PCP verified as Sam Hancock. Preadmission plan established with [facility] to provide in home therapy at [place], pt confirms DC plan. Pt has walker. [...] Post Discharge Therapy Recommendations: Home Physical Therapy Planting Material Carrier Support for-: ADL Deficits, Mobility Deficits Past Medical History: Diagnosis Date Arthritis Atrial fibrillation ([facility]) Hypertension Hypothyroidism OA (osteoarthritis) Obesity Visual impairment Past Surgical History: Procedure Laterality Date ANKLE ARTHROPLASTY Left ARTHROSCOPY KNEE x 2 BACK SURGERY 2021 nerve cautery DILATION AND CURETTAGE OF UTERUS 07/2023 dyan JOINT REPLACEMENT Right hip- done in [place] LAPAROTOMY SALPINGO OOPHORECTOMY Left 6 Clicks: Basic [...] 6 Clicks: Basic Mobility Raw Score: 17 [facility] G Code Modifier: CK Therapy Plan Need [...] belt Weight Bearing Status: WBAT L LE Telemetry/Director Of Global Talent: Yes Oxygen Used: room air Other: S/P [...] Keen DO Anesthesia: Anesthesiologist: Agustín Cox DO VOCATIONAL TRAINER: Suzette Pollock APRN-CARMEN Monitored Anesthesia Care, Spinal OR staff: Substitute Crossing Guard Primary: Katrin Mcnair RN Substitute Crossing Guard Relief: Lorna Pedraza RN Scrub Person: Jacquelyn Mcfarlane CST; ST Wendy Hart Assistant: Lan Kim Estimated blood loss: 300 mL Complications: None Findings: Wfzp-pa-ckzy left hip small anatomy small femoral head [...] incredibly narrow and the broach was down [id number] with no room for play I did [...] surgery without complication documented in this encounter [facility] 10-17-2023 Progress note Formatting of t his [...] Date/Time User Outcome 10/17/23 0829 Ravinder Sandra, BIODIESEL TECHNOLOGY MANAGER Progressing 10/16/23 1320 Sabina Helms, PT Progressing 10/16/23 1126 Sabina Helms, PT Not Progressing Goal note from Hospital Encounter 09/14/2023 by Ravinder Sandra BIODIESEL TECHNOLOGY MANAGER Evaluation of progress towards goal: Pt amb [...] note and education documentation for this visit. [facility] 10-16-2023 Plan of care note Problem: Safety [...] at the bedside 7. Instruct patient/ patient sales representative graphic art about use of safety devices 8. Include patient/ patient sales representative graphic art in decisions related to safety Outcome: Progressing [...] hygiene technique 7. Identify and instruct patient/patient sales representative graphic art in use of appropriate isolation precautions for identified infection/symptoms 8. Provide and discuss with patient/patient sales representative graphic art on educational MDRO sheet 9. Encourage and monitor nutritional status daily and consult veneer jointer operator if indicated 10. Implement neutropenic guidelines as needed 11. Review exposure to history of communicable disease and recent travel history on admission 12. Encourage annual influenza vaccine 13. Encourage pneumonia vaccine Outcome: Progressing Note: Evaluation of progress towards goal: No s/sx of infection Problem: Knowledge Deficit Goal: Patient/patient sales representative graphic art demonstrates understanding of disease process, treatment plan, medications, and discharge instructions Description: INTERVENTIONS 1. Complete learning assessment and assess knowledge base 2. Provide teaching at level of understanding 3. Provide teaching via preferred learning method(s) Outcome: Progressing Note: Evaluation of progress towards goal: Education provided on meds and tx plan [facility] 10-16-2023 History of Present illness Narrative Orthopedic [...] 09/18/2023 Narrative: THIS EXAM WAS PERFORMED AT [facility] 09/18/2023 10:03 AM CLINICAL [...] 09/18/2023 11:43 AM documented in this encounter [facility] 10-16-2023 Progress note Formatting of t his [...] belt Weight Bearing Status: WBAT L LE Telemetry/Director Of Global Talent: Yes Other: S/P L ALIN Pain Assessment [...] Problem: Primary localized osteoarthritis of left hip [facility] 10-16-2023 Progress note Formatting of t his [...] belt Weight Bearing Status: WBAT L LE Telemetry/Director Of Global Talent: Yes Other: S/P L ALIN Pain Assessment [...] Problem: Primary localized osteoarthritis of left hip [facility] 10-16-2023 Progress note Formatting of t his [...] cautery DILATION AND CURETTAGE OF UTERUS 07/2023 dyan JOINT REPLACEMENT Right hip- done in [place] LAPAROTOMY SALPINGO OOPHORECTOMY Left Past Medical History: [...] belt Weight Bearing Status: WBAT L LE Telemetry/Director Of Global Talent: Yes Oxygen Used: room air Other: fall [...] transfers or gait Homemaking Assistance: Independent 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 Complete learning assessment and assess knowledge base 2. Provide teaching at level of understanding 3. Provide teaching via preferred learning method(s) Outcome: Progressing Note: Evaluation of progress towards goal: pt educated on treatment plan, will continue to update pt prn. All questions answered at this time. [employer] 10-16-2023 Progress note Formatting of t his note might be different from the original. DISCHARGE PLANNING NOTE Follow-up Discharge Planning Progress Note Per RN during discharge transition rounds, barriers to discharge are: None Discharge Plan: DC to home with [facility] Care Navigation will continue to follow for any discharge needs [employer] 10-15-2023 Plan of care note Problem: Pain Goal: Patient goal is pain score less than 4, able to rest, and participant in treatment plan as appropriate Description: INTERVENTIONS: 1. Encourage patient or legal sales representative graphic art to report early pain and ask for [...] per policy 9. Teach patient or legal sales representative graphic art interventions for comforting Outcome: Progressing Note: Evaluation [...] at the bedside 7. Instruct patient/ patient sales representative graphic art about use of safety devices 8. Include patient/ patient sales representative graphic art in decisions related to safety Outcome: Progressing [...] hygiene technique 7. Identify and instruct patient/patient sales representative graphic art in use of appropriate isolation precautions for identified infection/symptoms 8. Provide and discuss with patient/patient sales representative graphic art on educational MDRO sheet 9. Encourage and monitor nutritional status daily and consult veneer jointer operator if indicated 10. Implement neutropenic guidelines as needed 11. Review exposure to history of communicable disease and recent travel history on admission 12. Encourage annual influenza vaccine 13. Encourage pneumonia vaccine Outcome: Progressing Note: Evaluation of progress towards goal: Problem: Knowledge Deficit Goal: Patient/patient sales representative graphic art demonstrates understanding of disease process, treatment plan, [...] together with patient to achieve discharge goals. [facility] 10-15-2023 Plan of care note Problem: Pain Goal: Patient goal is pain score less than 4, able to rest, and participant in treatment plan as appropriate Description: INTERVENTIONS: 1. Encourage patient or legal sales representative graphic art to report early pain and ask for [...] per policy 9. Teach patient or legal sales representative graphic art interventions for comforting Outcome: Progressing Note: Evaluation of progress towards goal: Pt able to report pain according to 0/10 pain scale. Medicating patient for pain per orders. [employer] 10-15-2023 Progress note Formatting of t his note is different from the original. Images from the original note were not included. DISCHARGE PLANNING NOTE 10/15/23 7067 Discharge Disposition Discharge Disposition Home with Self Care County Information [facility] of [facility] Patient Information Primary Caregiver Self Support System Immediate family (14 yr old dtr Yamilka & 20 year old daughter Claudine) Stressors Type of stressor (does not endorse) Income Information Income Information Employed ([employer]) Referral To Community Resources Denies needs Discharge Planning Living Arrangements Minor Child(fabrizio);Private Residence Support Systems Children Assistance Needed has walker Type of Residence Private residence Private Residence 1 [place] Residence Accessibility Steps into home Number of [...] depression or other mental health concerns. Negative [place] screen. Pt provides own transportation; oldest daughter will be able to assist at [place]. 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 Pt relayed her 14 yr old Yamilka will be available to assist & oldest daughter Claudine as well. Patient's preferred pharmacy is [email or web address]. PCP verified as Sam Hancock. Preadmission plan established with [facility] to provide in home therapy at [place], pt confirms DC plan. Pt has walker. [...] Care Navigation following for safe care transition. [facility] 10-15-2023 Progress note Formatting of t his note is different from the original. Physical Therapy Evaluation Discharge Recommendations PT Recommendations: Home Home Recommendations: Intermittent caregiver support for: Post Discharge Therapy Recommendations: Home Physical Therapy Planting Material Carrier Support for-: ADL Deficits, Mobility Deficits Past Medical History: Diagnosis Date Arthritis Atrial fibrillation (CMS-HCC) Hypertension Hypothyroidism OA (osteoarthritis) Obesity Visual impairment Past Surgical History: Procedure Laterality Date ANKLE ARTHROPLASTY Left ARTHROSCOPY KNEE x 2 BACK SURGERY 2021 nerve cautery DILATION AND CURETTAGE OF UTERUS 07/2023 dyan JOINT REPLACEMENT Right hip- done in [place] LAPAROTOMY SALPINGO OOPHORECTOMY Left 6 Clicks: Basic [...] belt Weight Bearing Status: WBAT L LE Telemetry/Director Of Global Talent: Yes Oxygen Used: room air Other: S/P [...] Problem: Primary localized osteoarthritis of left hip [facility] [employer] [facility] 10-15-2023 Procedure note Summary: Left hip replacement Og Badillo Date of : 1965 Date of Surgery: 10/15/2023 Preoperative diagnosis: Primary osteoarthritis left hip Postoperative diagnosis: Same Procedure: Left total hip arthroplasty Implants: [place] B 1 Fitmore stem with standard offset 44 mm cup with a 28 x 44 high wall liner 3.5/28 ceramic head Surgeon: Wilfredo Keen DO Anesthesia: Anesthesiologist: Agustín D Cox, DO VOCATIONAL TRAINER: Suzette Pollock APRN-VOCATIONAL TRAINER Monitored Anesthesia Care, Spinal OR staff: Substitute Crossing Guard Primary: Katrin Mcnair RN Substitute Crossing Guard Relief: Lorna Pedraza RN Scrub Person: Jacquelyn Mcfarlane CST; ST Wendy Hart Assistant: Lan Kim Estimated blood loss: 300 mL Complications: None Findings: Qpvt-ys-ctot left hip small anatomy small femoral head [...] incredibly narrow and the broach was down [id number] with no room for play I did [...] The patient tolerated the surgery without complication [facility] 10-15-2023 Attending History and physical note HISTORY AND PHYSICAL INTERVAL NOTE: Og Badillo 1965 [id number] H&P reviewed. The patient was examined and there are no changes to the H&P. Wilfredo Keen DO Source Note - Wilfredo Keen DO - 10/09/2023 1:35 PM EST [facility] History and physical note HISTORY AND PHYSICAL INTERVAL NOTE: Og Badillo 1965 [id number] H&P reviewed. The patient was examined and there are no changes to the H&P. Wilfredo Keen DO Source Note - Wilfredo Keen DO - 10/09/2023 1:35 PM EST documented in this encounter [facility] 09-18-2023 Instructions Nati Clark RN - 09/18/2023 [...] in at the main lobby of the [facility]- registration desk is straight ahead as soon as you walk in. Tell them you are here for surgery. 2. If you have a Living Will/Durable Power of Farm Equipment Service Technician for Health Care that is not on [...] after you have bathed. 5. NO nail puerto rican/acrylic on at least one finger. If you are having a hand, wrist or foot surgery then all nail puerto rican and artificial/acrylic nails must be removed from [...] please call the Preadmission Testing office at [phone], Mon.-Fri. 7 a.m.-3 p.m. Leave a voicemail [...] go swimming or use a hot tub ([facility]), or perform activities where your incision is [...] with your doctor. documented in this encounter [facility] 01-16-2022 Note CONSULTATION CONSULTATION DATE: 01/16/2022 HISTORY [...] medications include baclofen 10 mg q.h.s., BuSpar, [place] 7.5/325 q.h.s., Paxil and trazodone. She does [...] today as well. We will maintain her [place] 7.5/325 daily only. Bilateral medial branch blocks with subsequent rhizotomy were suggested to the patient, but due to cost, she defers at this time. We will continue to medically manage her. We will see her in three months' time unless otherwise indicated. [facility] Signed and Approved by: FILIPPO CHOWDARY . 01/23/2022 16:01:00 [facility] 10-17-2021 Note CONSULTATION PAIN MANAGEMENT CONSULTATION This is a 56-year-old female who returns to the clinic for a 2-month follow-up for chronic left shoulder and right elbow pain. She was last seen on 07/25/2021 which at that time her [place] was increased to 7.5/325 q. day. She [...] 800 mg b.i.d., Baclofen 10 mg q.h.s., [place] 7.5/325 q. day in addition to Paxil, Trazadone and Buspar. The patient states she does drink every night and gets her buzz on . The patient is requiring about an increase in her [place] today as she feels she needs better pain relief to work her job. 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 REVIEW OF SYSTEMS, PAST MEDICAL HISTORY, [...] shoulder osteoarthritis, right elbow bursitis. PLAN: Her [place] will not be increased. A refill for [place] 7.5/325 sent today. The patient was encouraged to continue her ibuprofen as well as her Voltaren gel. Will continue to follow her in three months' time unless otherwise indicated. She was encouraged to follow-up with Dr. Carrion when she is financially comfortable to do so. The patient understanding and all questions were answered. [facility] Signed and Approved by: FILIPPO CHOWDARY . 10/30/2021 08:25:00 [facility] 07-25-2021 Note PAIN MANAGEMENT DATE: 07-25-21 This [...] Current medications include Baclofen 10 mg q.h.s, [place] 5/325 q. day which the patient states [...] is requesting a possible increase in her [place]. I will increase her to 7.5/325 q.d., only if she to supplement that with [id number] ibuprofen or Aleve. At this time we will follow with the patient in the clinic in three months' time unless otherwise indicated. The patient agrees to the plan of care and all questions were answered today. [facility] Signed and Approved by: FILIPPO CHOWDARY . 08/01/2021 16:09:00 [facility] 04-25-2021 Note PAIN MANAGEMENT Consultation Date: [...] 4. We will maintain the patient on [place] and refill today 5/325 mg daily. 5. [...] office in three months unless otherwise indicated. [facility] Signed and Approved by: FILIPPO CHOWDARY . 05/01/2021 07:55:00 [facility] 02-04-2021 Note PAIN MANAGEMENT CONS ULTATION Consultation [...] time, lying down, Advil, Baclofen injection therapy, [place] and Trazodone. On January 22 the patient [...] MEDICATIONS: Baclofen 10 mg one p.o., q.h.s., [place] 5/325 one p.o. daily p.r.n. Paxil daily, [...] today in the office. A refill of [place] 5/327 one p.o. daily p.r.n. pain was prescribed today and given to the patient via paper prescription for both Baclofen and [place]. The patient has been advised of the [...] are completed to re-evaluate her pain. . [facility] Signed and Approved by: NIKKI BAILEY 02/11/2021 07:21:00 [facility] Evaluation note Diagnosis Essential hypertension, benign (CMS/HCC)- [...] excess calories (CMS/HCC) documented in this encounter [facility] HealthcareEvaluation [facility]* Diagnosis Encounter for preoperative [...] (BMI) of 45.0 to 49.9 in adult ([facility]) Prediabetes Other abnormal glucose Primary hypothyroidism ([facility]/HCC) Unspecified hypothyroidism Encounter for long-term (current) use of medications Encounter for long-term (current) use of other medications Dyslipidemia (CMS/HCC) Other and unspecified hyperlipidemia Morbid obesity due to excess calories (CMS/HCC) Adult hypothyroidism ([facility]/HCC)- Primary Unspecified hypothyroidism documented in this encounter [facility] HealthcareEvaluation note* Diagnosis Encounter for preoperative assessment- [...] (BMI) of 45.0 to 49.9 in adult ([facility]) Prediabetes Other abnormal glucose Primary hypothyroidism ([facility]/HCC) Unspecified hypothyroidism Encounter for long-term (current) use of medications Encounter for long-term (current) use of other medications Dyslipidemia (CMS/HCC) Other and unspecified hyperlipidemia Morbid obesity due to excess calories ([facility]/HCC) Edema of both legs- Primary Edema documented in this encounter [facility]* [...] (BMI) of 45.0 to 49.9 in adult ([facility]) Prediabetes Other abnormal glucose Primary hypothyroidism ([facility]) Unspecified hypothyroidism Encounter for long-term (current) use of medications Encounter for long-term (current) use of other medications Dyslipidemia ([facility]) Other and unspecified hyperlipidemia Morbid obesity due to excess calories ([facility]) Globus sensation- Primary Gastrointestinal malfunction arising from mental factors Chronic superficial gastritis without bleeding Degeneration of intervertebral disc of lumbar region with discogenic back pain and lower extremity pain Chronic obstructive pulmonary disease, unspecified COPD type ([facility]/HCC) Major depressive disorder, recurrent episode, moderate degree (CMS/HCC) Major depressive disorder, recurrent episode, moderate Class 3 severe obesity due to excess calories with serious comorbidity and body mass index (BMI) of 45.0 to 49.9 in adult ([facility]) documented in this encounter [facility] HealthcareEvaluation note* Diagnosis Encounter for preoperative assessment- Primary Primary osteoarthritis of left hip Essential hypertension, benign (CMS/HCC) Essential hypertension, benign MDD (major depressive disorder), recurrent episode, mild (HCC) (CMS/HCC) Generalized anxiety disorder ([facility]/HCC) Generalized anxiety disorder Morbid obesity due to [...] (BMI) of 45.0 to 49.9 in adult ([facility] Prediabetes Other abnormal glucose Primary hypothyroidism ([facility] Unspecified hypothyroidism Encounter for long-term (current) use of medications Encounter for long-term (current) use of other medications Dyslipidemia ([facility]) Other and unspecified hyperlipidemia Morbid obesity due to excess calories ([facility]) Globus sensation- Primary Gastrointestinal malfunction arising from mental factors Chronic superficial gastritis without bleeding Degeneration of intervertebral disc of lumbar region with discogenic back pain and lower extremity pain Chronic obstructive pulmonary disease, unspecified COPD type ([facility]) Major depressive disorder, recurrent episode, moderate degree ([facility] Major depressive disorder, recurrent episode, moderate Class 3 severe obesity due to excess calories with serious comorbidity and body mass index (BMI) of 45.0 to 49.9 in adult ([facility] LPRD (laryngopharyngeal reflux disease)- Primary Acute laryngitis, without mention of obstruction Chronic coughing Cough [facility] Preop examination- Primary Unspecified pre-operative examination Hypertension, unspecified type Atrial fibrillation, unspecified type ([facility]) BMI 40.0-44.9, adult ([facility]) Preop examination Unspecified pre-operative examination Hypertension, unspecified type Atrial fibrillation, unspecified type ([facility]) BMI 40.0-44.9, adult ([facility]) documented in [facility] encounter [facility]* Diagnosis S/P revision of total hip- Primary Osteoarthritis of left shoulder, unspecified osteoarthritis type Osteoarthritis of right elbow, unspecified osteoarthritis type Morbid obesity with BMI of 40.0-44.9, adult ([facility]) Right elbow pain Pain in joint, upper arm Chronic left shoulder pain Pain in joint, shoulder region documented in this encounter [facility]* Diagnosis Primary localized osteoarthritis of left hip- Primary Primary localized osteoarthritis of left hip documented in this encounter [facility]* Diagnosis Right elbow pain- Primary Pain in joint, upper arm S/P revision of total hip Morbid obesity with BMI of 40.0-44.9, adult ([facility]) Chronic left shoulder pain Pain in joint, shoulder region documented in this encounter [facility]* Diagnosis Periprosthetic fracture around internal prosthetic left hip joint, subsequent encounter- Primary [facility] Diagnosis Periprosthetic fracture around internal prosthetic left hip joint, subsequent encounter- Primary S/P revision of total hip Morbid obesity with BMI of 40.0-44.9, adult ([facility]) documented in this encounter [facility]* Diagnosis Bleeding internal hemorrhoids- Primary Internal hemorrhoids with other complication documented in this encounter [facility]* Diagnosis Encounter for preoperative [...] adult Prediabetes Other abnormal glucose Primary hypothyroidism ([facility]) Unspecified hypothyroidism Encounter for long-term (current) use [...] mention of obstruction [facility] Encounter for preoperative assessment- Primary [...] hip replacement, left documented in this encounter [facility] HealthcareEvaluation note* Diagnosis Encounter for preoperative assessment- [...] bleeding Postmenopausal bleeding documented in this encounter [facility] HealthcareEvaluation note* Diagnosis Encounter for preoperative assessment- [...] left hip joint documented in this encounter [facility] HealthcareEvaluation note* Diagnosis Encounter for preoperative assessment- [...] hip replacement, left documented in this encounter [facility] HealthcareEvaluation note* Diagnosis Encounter for preoperative assessment- Primary Primary osteoarthritis of left hip Essential hypertension, benign Essential hypertension, benign MDD (major depressive disorder), recurrent episode, mild Generalized anxiety disorder Generalized anxiety disorder Morbid obesity due to excess calories ([facility]) Essential hypertension, benign- Primary Essential hypertension, benign Major depressive disorder, recurrent episode, moderate degree (HCC) Major depressive disorder, recurrent episode, moderate Generalized anxiety disorder Generalized anxiety disorder Primary osteoarthritis of left hip Bleeding hemorrhoids Unspecified hemorrhoids with other complication Class 3 severe obesity due to excess calories with serious comorbidity and body mass index (BMI) of 45.0 to 49.9 in adult ([facility]) Prediabetes Other abnormal glucose Primary hypothyroidism Unspecified hypothyroidism Encounter for long-term (current) use of medications Encounter for long-term (current) use of other medications Dyslipidemia Other and unspecified hyperlipidemia Morbid obesity due to excess calories ([facility]) Globus sensation- Primary Gastrointestinal malfunction arising from [...] (BMI) of 45.0 to 49.9 in adult ([facility]) Essential hypertension, benign- Primary Essential hypertension, benign [...] bleeding Postmenopausal bleeding documented in this encounter [facility] HealthcareEvaluation note* Diagnosis Encounter for preoperative assessment- Primary Primary osteoarthritis of left hip Essential hypertension, benign Essential hypertension, benign MDD (major depressive disorder), recurrent episode, mild Generalized anxiety disorder Generalized anxiety disorder Morbid obesity due to excess calories ([facility]) Essential hypertension, benign- Primary Essential hypertension, benign Major depressive disorder, recurrent episode, moderate degree (HCC) Major depressive disorder, recurrent episode, moderate Generalized anxiety disorder Generalized anxiety disorder Primary osteoarthritis of left hip Bleeding hemorrhoids Unspecified hemorrhoids with other complication Class 3 severe obesity due to excess calories with serious comorbidity and body mass index (BMI) of 45.0 to 49.9 in adult ([facility]) Prediabetes Other abnormal glucose Primary hypothyroidism Unspecified hypothyroidism Encounter for long-term (current) use of medications Encounter for long-term (current) use of other medications Dyslipidemia Other and unspecified hyperlipidemia Morbid obesity due to excess calories ([facility]) Globus sensation- Primary Gastrointestinal malfunction arising from [...] (BMI) of 45.0 to 49.9 in adult ([facility]) Essential hypertension, benign- Primary Essential hypertension, benign [...] Gouty arthropathy, unspecified documented in this encounter [facility] HealthcareHospital Discharge instructionsNot on filedocumented in this encounterPro[facility] SystemInstructionsNot on filedocumented in this encounterProHol[facility] SystemInstructionsNot on filedocumented in this encounterPro[facility] SystemInstructionsNot on filedocumented in this encounterProMedica Health SystemInstructionsNot on filedocumented in this encounterProMedica Health SystemInstructionsNot on filedocumented in this encounterProMedica Health SystemInstructionsNot on filedocumented in this encounterProMedica Health SystemInstructionsNot on filedocumented in this encounterProMedica Health SystemInstructionsNot on filedocumented in this encounterProSt. Vincent[facility] Health SystemReason for visit Narrative* Rehabilitation - Outpatient (Routine) - Authorized Specialty Diagnoses / Procedures Referred By Contac t Referred To Contact Physical Therapy Diagnoses Primary osteoarthritis of left hip Status post total hip replacement, left Procedures AR OFFICE/OUTPATIENT NEW HIGH MDM 60 MINUTES Sam Hancock MD [address] [place] [address] Phone: tel: fax: Christy Cary, PT [address] [place] [address] Phone: tel: fax: Referral ID Status Reason Start Date Expiration Date Visits Requested Visits Authorized [id number] Authorized Consult and Treat 01/04/2025 07/03/2025 30 30 [facility] HealthcareReason for visit Narrative* Rehabilitation - Outpatient (Routine) - Authorized Specialty Diagnoses / Procedures [facility] Referred To Contact Physical Therapy Diagnoses Primary osteoarthritis of left hip Status post total hip replacement, left Procedures AR OFFICE/OUTPATIENT NEW HIGH MDM 60 MINUTES Sam Hancock MD [address] [place] [address] Phone: tel: fax: Christy Cary, PT [address] [place] [address] Phone: tel: fax: Referral ID Status Reason Start Date Expiration Date Visits Requested Visits Authorized [id number] Authorized Consult and Treat 01/04/2025 08/23/2025 30 [...] Rehabilitation Diagnoses S/P revision of total hip Rita Doyle PA-C [address] [place] [address] [facility] [address] [place] [address] Referral ID Status Reason Start Date Expiration Date Visits Requested Visits Authorized [id number] Authorized Specialty Services Required 01/21/2024 07/23/2024 1 1 Specialty Diagnoses / Procedures Referred By Contac t Referred To Contact Diagnoses S/P revision of total hip Jalen Pierce MD [address] [facility] [place] [address] Referral ID Status Reason Start Date Expiration Date Visits Re quested Visits Authorized [id number] Closed 1 1 Specialty Diagnoses / Procedures Referred By Contac t Referred To Contact Diagnoses Periprosthetic fracture around internal prosthetic left hip joint, subsequent encounter Franco Adhikari PA-C [address] [place] [address] Referral ID Status Reason Start Date Expiration Date Visits Re quested Visits Authorized [id number] Closed 1 1 Specialty Diagnoses / Procedures Referred By Contac t Referred To Contact Rehabilitation Diagnoses Periprosthetic fracture around internal prosthetic left hip joint, subsequent encounter Rita Doyle PA-C [address] [place] [address] [facility] [address] [place] [address] Referral ID Status Reason Start Date Expiration Date Visits Requested Visits Authorized [id number] Authorized Specialty Services Required 12/09/2023 06/09/2024 1 1 Specialty Diagnoses / Procedures Referred By Contac t Referred To Contact Diagnoses Periprosthetic fracture around internal prosthetic left hip joint, subsequent encounter S/P revision of total hip Procedures Disability/Handicap Concha Luciano PA-C [address] [place] [address] Referral ID Status Reason Start Date Expiration Date V isits Requested Visits Authorized [id number] Pending Review 04/28/2024 04/28/2025 1 1 Additional Source Comments INFORMATION SOURCE (unrecogn ized section and content) DATE CREATED AUTHOR 01/24/[address] [facility] DATE CREATED AUTHOR AUTHOR'S ORGANIZ ATION 11/25/2023 [facility] DATE CREATED AUTHOR AUTHOR'S ORGANIZ ATION 04/30/2024 [facility] DATE CREATED AUTHOR AUTHOR'S ORGANIZ ATION 07/23/2024 [facility] DATE CREATED AUTHOR AUTHOR'S ORGANIZ ATION 01/09/2025 [facility] DATE CREATED AUTHOR AUTHOR'S ORGANIZ ATION 03/05/2025 [facility] DATE CREATED AUTHOR AUTHOR'S ORGANIZ ATION 03/13/2025 [facility] Reason for Visit (unrecogniz ed section and content) Reason Comments Med Refill Reason Comments Follow-up Talk about med/ heal th Reason Comments Follow-up Sciatica flair upRef erral to ENT Reason Comments Globus Sensation Specialty Diagnoses / Procedures Referred By Contac t Referred To Contact Otolaryngology Diagnoses Globus sensation Procedures AR OFFICE/OUTPATIENT NEW HIGH MDM 60 MINUTES Sam Hancock MD [address] [place] [address] Phone: tel: fax: Myrtle Cota MD [address] [facility] [address] [place] [address] Phone: tel: fax: Referral ID Status Reason Start Date Expiration Date V isits Requested Visits Authorized [id number] Closed Specialty Services Required 09/05/2024 03/04/2025 1 1 Reason Onset Date Comments attribution outreach 12/09/2023 Reason Comments Follow-up Revision left total hip Follow-up Specialty Diagnoses / Procedures Referred By Contac t Referred To Contact Diagnoses Degenerative joint disease of left hip left hip degenerative joint disease Procedures AR TOTAL HIP ARTHROPLASTY REPLACEMENT TOTAL JOINT HIP Wilfredo Keen DO [address] [facility] [address] [place] [address] Referral ID Status Reason Start Date Expiration Date Visits Re quested Visits Authorized [id number] 1 1 Reason Comments Post-op s/p revision L TH Post-op Reason Comments Establish Care Revision L ALIN, XRD Follow-up Reason Comments Hemorrhoids BLEEDING HEMORRHOIDS , REFERRED BY DR HANCOCK Specialty Diagnoses / Procedures Referred By Michelle t Referred To Contact General Surgery Diagnoses Bleeding hemorrhoids Procedures AR OFFICE OUTPATIENT VISIT 60-74 MINS HIGH MDM [id number] (SNOMED CT) - AMB REFERRAL TO GENERAL SURGERY Sam Hancock MD [address] [place] [address] Phone: tel: fax: Sebastian Garcia DO [facility] [place] [address] Phone: tel: fax: Referral ID Status Reason Start Date Expiration Date V isits Requested Visits Authorized [id number] Pending Review 06/21/2024 12/18/2024 1 1 Reason Onset Date Comments Attribution Outreach 10/28/2024 Reason Comments Follow-up 3m Gout Left foot Reason Comments ER Follow-up Patient went to ER o n 11/25/24 for Postmenopausal Bleeding. Reason Comments Pre-op Visit Reason Comments Follow-up Surgical clearance d & c possible hyst Care Teams (unrecognized sec tion and content) Bung Remover Relationship Specialty Start Date End Date Sam Hancock MD [address] [place] [address] PCP - General Family Medicine 09/14/23 Bung Remover Relationship Specialty Start Date End Date Sam Hancock MD [address] [place] [address] PCP - General Family Medicine 09/14/23 Bung Remover Relationship Specialty Start Date End Date Sam Hancock MD [address] [place] [address] PCP - General Family Medicine 09/14/23 Bung Remover Relationship Specialty Start Date End Date Sam Hancock MD [address] [place] [address] PCP - General Family Medicine 09/14/23 Bung Remover Relationship Specialty Start Date End Date Sam Hancock MD [address] [place] [address] PCP - General Family Medicine 09/14/23 Bung Remover Relationship Specialty Start Date End Date Sam Hancock MD [address] [place] [address] PCP - General Family Medicine 09/14/23 Bung Remover Relationship Specialty Start Date End Date Sam Hancock MD [address] [place] [address] PCP - General Family Medicine 09/14/23 Bung Remover Relationship Specialty Start Date End Date Sam Hancock MD [address] [place] [address] PCP - General Family Medicine 09/14/23 Bung Remover Relationship Specialty Start Date End Date Sam Hancock MD [address] [place] [address] PCP - General Family Medicine 09/14/23 Bung Remover Relationship Specialty Start Date End Date Sam Hancock MD [address] [place] [address] PCP - General Family Medicine 09/14/23 Bung Remover Relationship Specialty Start Date End Date Sam Hancock MD [address] [facility] [address] PCP - General Family Medicine 12/22/22 Bung Remover Relationship Specialty Start Date End Date Sam Hancock MD [address] [facility] [address] PCP - General Family Medicine 12/22/22 Bung Remover Relationship Specialty Start Date End Date Sam Hancock MD [address] [facility] [address] PCP - General Family Medicine 12/22/22 Bung Remover Relationship Specialty Start Date End Date Sam Hancock MD [address] [facility] [address] PCP - General Family Medicine 12/22/22 Bung Remover Relationship Specialty Start Date End Date Sam Hancock MD [address] [facility] [address] PCP - General Family Medicine 12/22/22 Bung Remover Relationship Specialty Start Date End Date Sam Hancock MD PCP - General Family Medicine 12/22/22 Bung Remover Relationship Specialty Start Date End Date Sam Hancock MD [address] [place] [address] PCP - General Family Medicine 06/30/24 Bung Remover Relationship Specialty Start Date End Date Sam Hancock MD [address] [place] [address] PCP - General Family Medicine 06/30/24 Bung Remover Relationship Specialty Start Date End Date Sam Hancock MD [address] [place] [address] PCP - General Family Medicine 06/30/24 Bung Remover Relationship Specialty Start Date End Date Sam Hancock MD [address] [place] [address] PCP - General Family Medicine 06/30/24 Bung Remover Relationship Specialty Start Date End Date Sam Hancock MD [address] [place] [address] PCP - General Family Medicine 09/14/23 Bung Remover Relationship Specialty Start Date End Date Sam Hancock MD PCP - General Family Medicine 06/30/24 Bung Remover Relationship Specialty Start Date End Date Sam Hancock MD PCP - General Family Medicine 06/30/24 Bung Remover Relationship Specialty Start Date End Date Sam Hancock MD [address] [place] [address] PCP - General Family Medicine 09/14/23 Bung Remover Relationship Specialty Start Date End Date Sam Hancock MD [address] [place] [address] PCP - General Family Medicine 09/14/23 Bung Remover Relationship Specialty Start Date End Date Sam Hancock MD [address] [place] [address] PCP - General Family Medicine 09/14/23 Bung Remover Relationship Specialty Start Date End Date Sam Hancock MD [address] [place] [address] PCP - General Family Medicine 09/14/23 Bung Remover Relationship Specialty Start Date End Date Sam Hancock MD [address] [place] [address] PCP - General Family Medicine 09/14/23 Bung Remover Relationship Specialty Start Date End Date Sam Hancock MD [address] [place] [address] PCP - General Family Medicine 09/14/23 Bung Remover Relationship Specialty Start Date End Date Sam Hancock MD [address] [place] [address] PCP - General Family Medicine 09/14/23 Bung Remover Relationship Specialty Start Date End Date Sam Hancock MD [address] [place] [address] PCP - [facility] 09/14/23 Bung Remover Relationship Specialty Start Date End Date Sam Hancock MD [address] [place] [address] PCP - [facility] 09/14/23 Bung Remover Relationship Specialty Start Date End Date Sam Hancock MD [address] [place] [address] PCP - [facility] 09/14/23 Scheduled Active and Recently Administ ered [...] Nikki Tate RN)2039 (Given - Provider: Dorene Vásquez, ADRIENNE) 0243 (Given - Provider: Dorene Vásquez RN)0852 (Given - Provider: Andree Gillespie RN)1500 (Due - Provider: Rema Murcia [facility])2100 (Due - Provider: Rema Murcia RPH) acetaminophen [...] Montalvo RN) 075 (Given - Provider: Katie Molina RN)0900 (Canceled Entry - Provider: Katie Molina RN)203 (Given - Provider: Dorene Vásquez RN) 0853 (Given - Provider: Andree Gillespie RN)2100 (Due) ceFAZolin (ANCEF) IVPB 1000 mg/50 mL in iso-osmotic dextrose (20 mg/mL premix) (COMPLETED) 1,000 mg, intravenous, at 100 mL/hr, Administer over 30 Minutes, Once, On Tressa 10/15/23 at 0915, For 1 dose, Pre-op, Look-alike/sound-alike medication - verify indication for use., Indication: Surgical prophylaxis 1046 (Given - Provider: Suzette Pollock APRN-VOCATIONAL TRAINER)1101 (Stop Bag - Provider: DALLAS Ba) ceFAZolin [...] prophylaxis 1954 (New Bag - Provider: Katrin Montalvo, RN)2024 (Stop Bag - Provider: Katrin Montalvo, RN) 321 (New Bag - Provider: Katrin Montalvo, RN)351 (Stop Bag - Provider: Katrin Montalvo RN) ceFAZolin (ANCEF) IVPB 2000 mg/50 mL in iso-osmotic dextrose (40 mg/mL premix) (COMPLETED) 2,000 mg, intravenous, at 100 mL/hr, Administer over 30 Minutes, Once, On Tressa 10/15/23 at 0915, For 1 dose, Pre-op, Look-alike/sound-alike medication - verify indication for use., Indication: Surgical prophylaxis 1101 (Given - Provider: Suzette Pollock APRN-VOCATIONAL TRAINER)1131 (Stop Bag - Provider: DALLAS Ba) celecoxib (CeleBREX) capsule 200 mg (COMPLETED) 200 mg, oral, Once, On Tressa 10/15/23 at 0915, For 1 dose, Pre-op, Look-alike/sound-alike medication - verify indication for use. 927 (Given - Provider: Terri Kidd RN) ferrous [...] 0853 (Given - Provider: Andree Gillespie RN) phentermine (ADIPEX-P) tablet 37.5 mg 37.5 mg, oral, Every morning before breakfast, First dose on Thu10/15/23 at 1445, Look-alike/sound-alike medication - verify indication for use. 1445 (Not Given - Provider: Valerie Garcia RN - Reason: Medication not available) 0600 (Not Given - Provider: Katrin Montalvo RN - Reason: Medication not available) 0700 (Not Given - Provider: Andree Gillespie RN - Reason: Medication not available) sennosides-docusate sodium (SENOKOT-S) 8.6-50 mg 1 tablet 1 tablet, oral, 2 times daily, First dose on Thu10/16/23 at 0900, Start Post-Op Day 1: Hold for diarrhea 0749 (Given - Provider: Katie Molina RN)0900 (Canceled Entry - Provider: Katie Molina RN)203 (Given - Provider: Dorene Vásquez RN) 0852 (Not Given - Provider: Andree Gillespie RN - Reason: Patient/family refused)2100 (Due) tranexamic [...] Kidd RN)1106 (Continued by Anesthesia - Provider: Suzette Pollock HALVER MACHINE OPERATORVOCATIONAL TRAINER)1132 (Paused - Provider: Suzette Pollock APRNVOCATIONAL TRAINER - Comment: Switch to gravity)1133 (Restarted - Provider: Suzette Pollock APRNVOCATIONAL TRAINER)1221 (Anesthesia Volume Adjustment - Provider: Suzette Pollock APRNVOCATIONAL TRAINER)1247 (Anesthesia Volume Adjustment - Provider: Suzette Pollock HALVER MACHINE OPERATORVOCATIONAL TRAINER)1420 (Stop Bag - Provider: Eunice Stewart RN) lactated ringers infusion 125 mL/hr, intravenous, Continuous, [...] Look-alike/sound-alike medication - verify indication for use. 1952 (Given - Provider: Katrin Montalvo RN) magnesium [...] RN) 0749 (Given - Provider: Katie Molina, RN)2036 (See Alternative - Provider: Dorene Vásquez RN) 0242 (See Alternative - Provider: Dorene Vásquez RN)0852 (See Alternative - Provider: Andree Gillespie, RN) oxyCODONE (ROXICODONE) immediate release tablet 5 [...] Katie Molina, ADRIENNE)2036 (Given - Provider: Dorene Vásquez RN) 0242 (Given - Provider: Dorene Vásquez RN)0852 (Given - Provider: Andree Gillespie, RN) Linked [...] BE BASED ON THE PRIMARY CLINICAL RECORDS. [employer] provides no warranty or guarantee of the accuracy or completeness of information in this document.
[2025-03-17 06:13] LABS: Hematocrit 31.7 % (36.0-48.0); Hemoglobin 10.0 g/dL (12.0-16.0); Immature Granulocytes Abs Auto 0.10 10^3/uL (0.00-0.03); Immature Granulocytes Pct Auto 1.1 % (0.0-0.5); Lymphocytes Absolute Auto 1.2 10^3/uL (1.2-3.8); Mean Corpuscular HGB Conc 31.5 g/dL (29.9-35.2); Mean Corpuscular Hemoglobin 26.3 pg (26.7-34.0); Mean Corpuscular Volume 83.4 fL (81.0-99.0); Platelet Count 366 10^3/uL (150-450); Red Blood Count 3.80 10^6/uL (4.20-5.40); White Blood Count 9.0 10^3/uL (4.0-11.0)
--- NOTE | 2025-03-17 08:21 | PM.ONB ---
Brief Operative Note Date of procedure: 03/17/25 Pre-op diagnosis general: pmb Post-op diagnosis: same as pre-op Procedure: NAME OF PROCEDURE: [ D&c hysteroscopy with myosure] PROCEDURE: The patient was taken back to the Operating Room where she was prepped and draped in normal sterile fashion after being placed under general anesthesia without difficulty. She was also placed in the dorsal lithotomy position. A weighted speculum was placed in the patient?s vagina. The anterior lip of the cervix was identified and grasped with a single tooth tenaculum. The patient?s uterus was then sounded roughly to [? 8] cm. The patient was then gently dilated using Hegar dilators. The hysteroscope was passed through the patient?s cervix into the uterus. Both ostia were identified. fluffy appearing endometrium. No gross evidence of malignancy, no gross evidence of polyps or fibroids. The myosure apparatus was placed through the scope, The myosure was engaged and endometrial curretting were removed along with endometrial polyp, The hysteroscope was then removed from the uterus. The endometrial curettings were sent out to pathology. The single tooth tenaculum was then removed from the patient's anterior lip of the cervix where excellent hemostasis was noted. All instruments were removed from the patient?s vagina. The patient tolerated the procedure well. Sponge, lap and needle counts were correct times two. The patient was taken to the Recovery Room in stable condition.Room in stable condition. Anesthesia: MAC Surgeon: Azeem Davidson Estimated blood loss (mL): 5 Pathology: other (endometrial currettings) Condition: stable Disposition: floor Urinary Catheter Management Urinary Catheter Management Straight: Cath placed during this visit: no
== END 2025-03-17 10:33 | disposition home or self-care (01) ==
PROVIDERS: PCP Family Medicine; Visit Provider Obstetrics & Gynecology
PROC: (CPT 00952; principal; 2025-03-17 07:30)
DX: N95.0 Postmenopausal bleeding (principal); N84.0 Polyp of corpus uteri; R58 Hemorrhage, not elsewhere classified; Z87.891 Personal history of nicotine dependence; Z98.890 Other specified postprocedural states; Z90.721 Acquired absence of ovaries, unilateral; E66.01 Morbid (severe) obesity due to excess calories; Z68.41 Body mass index [BMI] 40.0-44.9, adult; Z96.642 Presence of left artificial hip joint; J44.9 Chronic obstructive pulmonary disease, unspecified; E78.5 Hyperlipidemia, unspecified; I10 Essential (primary) hypertension; I48.91 Unspecified atrial fibrillation; F41.9 Anxiety disorder, unspecified; F32.A Depression, unspecified
CPT/HCPCS: 00952; 58558; 36415; 85025; 99281; J1885; J2250; J2704; J3010

== ENCOUNTER 2025-03-17 11:48 | Emergency (ER) | payer MEDICAID, SELFPAY ==
--- OUTSIDE RECORDS SUMMARY | 2017-07-15 09:49 | XMS_ITS | Continuity of Care Document ---
Author Organization [facility] Address [address] [place] [address] ELIAS Martinez [address] Phone Care Team Providers Care Rehab Liaison Name Role Phone Unavailable Unavailable Unavailable Allergies, Adverse Reactions, Alerts Substance Reaction Status Criticality lisinopril dry cough Active No Information MEPERIDINE HCL Hives Active No Informatio n Medications Medication Instructions Dosage Effective Dates (start - stop) Status Comments losartan 50 mg tablet take 1 tablet by o ral route every day 50 MG - Active Prozac 20 mg capsule take 1 capsule by o ral route every day in the morning 20 MG - Active amlodipine 10 mg tablet take 1 tablet by oral route every day 10 MG - Active Aspir-81 81 mg tablet,delayed release take 1 tablet by oral route every day - Active Procedures Procedure Date ESTABLISHED OFFICE/OUTPATIENT VISIT Alcohol/drug screening ASSAY GLUCOSE BLOOD QUANT HIV-1/HIV-2, SINGLE ASSAY HEALTH RISK ASSESSMENT TEST NEW OFFICE/OUTPATIENT VISIT Advance Directives Directive Yes / No Effective Date File Name No Information Encounters Encounter Description Practice Location Reason(s) For Visit Diagnoses Date Provider Providers Copied on Encounter [facility], [address] [place] [address], [id number], tel:[phone] [facility] Kyle No Information 7 No Information ESTABLISHED OFFICE/OUTPA TIENT VISIT [facility], [address] [place] [address], [id number], tel:[phone] [facility] Lab results (chief complaint) Mixed hyperlipidemiaEss ential hypertensionBody mass index (BMI) 40.0-44.9, adultMorbid obesity with BMI of 40.0-44.9, adultAlcohol abuse Sabrina DO Kunz. [address] [place] [address], [id number], [place]. tel:[phone] HEALTH RISK ASSESSMENT TEST [facility], [address] [place] [address], [id number], [place] tel:[phone] [facility] new patient (chief complaint) Body mass index (BMI) 39.0-39.9, adultNo method initiated or patient has no method. CounEncounter for screening for diabetes mellitusEncounter for screening for human immunodeficiency virusEncounter for screening, unspecifiedAnnual physical examEssential hypertensionAlcoh ol abuseAlcohol abuse, uncomplicatedAlco hol abuse, uncomplicatedAnxi ety No Information Family History Family Member Type Diagnosis Age At Onset Father Problem (finding) Kidney problems Father Problem (finding) hypertension Immunizations Vaccine Date Status Comments Influenza, injectable, quadrivalent, preservative free, 3 yrs or older refused Note: 2015 completed ; Source: New Immunization Record Tdap (Boostrix) refused Note: comple stella with in 10 years ; Source: New Immunization Record Payers Payer name Insurance type Covered libertarian ID Authoriza tion(s) [facility] [id number] Sliding Fee Scale A Social History Type Description Quantity Date Captured Comments Sex Female Smoking Status No Information Sexual Orientation Straight or heterosexual Gender Identity Female Chief Complaint And Reason For Visit No Information Reason For Referral Reason For Referral No Information Plan Of Treatment Date Type Action Status Goal Lifestyle education regardin g diet completed Goal Dietary management education , guidance, and counseling completed History Of Present Illness Encounter Date Complaint History Of Prese nt Illness Lab results Pt returns to [facility] for review of lab results from 10/20/16. 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 Pt reports father had hep B, but she had not been in contact with him for "long time . Currently not sexually active. She is taking amlodipine 10mg for BP control, but BP elevated at 164/108 today.Pt would also like to initiate forms for disability for chronic right knee pain, for which she has had arthroscopic knee surgery in the past. new patient The symptoms beg an on 10/20/2016. New patient with [facility]. Just moved here from [place]. Hx HTN, Right ORIF, OA, Anxiety. I'm an Alcoholic Drinking x 30 years. Drinking beer and curt/coke. 2-3 beers daily. Non smoking. When not working I drink 6 beers . Lives with sister. Not going to AA. Denies drug use. +Fam h/o HTN. Functional Status Date Functional Assessmen t No Information Instructions Date Instruction Additional Infor gal PREVENTION: Patient to do a low carb, low fat with moderate protein diet; drink plenty of fluids to stay hydrated and eat plenty of fruits and vegetables for fiber and natural vitamins (otherwise patient to take Over The Counter Multi-vitamin, fiber and fish oil supplements). Exercise 5 hrs/wk. Avoid alcohol, tobacco use and drugs due to health hazards. Patient to do safe sex practices. ADVISED: REST; BP CHECKS DAILY; WEIGHT LOSS (5LB PER MONTH); DIET/EXERCISE; REDUCE ALCOHOL USEPROCEDURES/TREATMENT TODAY: COUNSELINGPLAN for next office visit: Medication(s) and medical condition(s) reevaluation.FOLLOW UP appt with PCP in 2 MONTHS or sooner as directed and depending on availability.FOLLOW UP appt with DERM AND IDENTIFICATION PRINTING MACHINE SETTER specialist(s) as directed. Patient to go to the nearest ER and/or call 911 if symptoms worsen. Med(s) and potential side effects discussed with patient. Risks of noncompliance with meds and treatment plan to include but not be limited to and disability. Patient verbalized understanding and agrees with plan. Related to Essential hypertension WEIGHT LOSS Related to Mixed hyperlipidemia Lifestyle education regarding di et Related to Body mass index (BMI) 40.0-44.9, adult Giving encouragement to exercise Related to Body mass index (BMI) 40.0-44.9, adult f/u with Optometry. f/u with Dentistry. Eat heart healthy foods that includes fresh fruits and veggies. Include lean meat and high sources of Protein. Get daily exercise that includes cardio, flexibility, and strength. Stay current on Pap/Pelvic/ and Mammo annually. vu Related to Annual physical exam Prescribed activity/ exercise education Related to Body mass index (BMI) 39.0-39.9, adult Dietary management e ducation, guidance, and counseling Related to Body mass index (BMI) 39.0-39.9, adult Please avoid drinking. vu Relate d to Alcohol abuse Increase exercise. W eight loss recommended. Eat heart healthy foods including increasing fruits and veggies. Avoid dairy, cheese, breads, pasta, and alcohol. NO ALCOHOL. Increase water intake/avoid soda and concentrated sugar. DASH diet to reduce salt intake. Avoid salt. No smoking RTC 3-6 months. DASH diet. Increase exercise. No salt. Keep BP log. Bring log back to next visit for eval.RTC 1 month. vu Plan of Care discussed. Agrees. All medications reviewed. Risks and Benefits reviewed. Verbalizes Understanding. Related to Essential hypertension Assessments Type Assessment Date No Information Patient Care Teams Name Effective Dates (start - stop) Status Members No Information
--- OUTSIDE RECORDS SUMMARY | 2025-02-13 10:45 | XMS_ITS | Encounter Summary ---
Author Organization [facility] Address [address] [place] [address] Care Team Providers Care Clinical Resource Coordinator Name Role Phone Sam Garcia MD Primary Care Provider [phone] Reason for Referral * Imaging (Routine) - Pending Review Specialty Diagnoses / Procedures Referred By Michelle drew Referred To Contact Cardiology Diagnoses Preop cardiovascular exam PAF (paroxysmal atrial fibrillation) (CMS/HCC) Shortness of breath Procedures Transthoracic echo (TTE) complete Noble Aly MD [address] [facility] [address] Phone: tel: fax: Referral ID Status Reason Start Date Expiration Date Visits Requested Visits Authorized [id number] Pending Review Perform Procedure 02/13/2025 02/13/2026 1 1 Encounter Details Date Type Department Care Team (Late st Contact Info) Description 02/13/2025 10:45 AM EDT Office Visit [facility] [place] [address] [place] [address] Noble Aly MD [address] [facility] [address] Preop cardiovascular exam (Primary Dx); PAF (paroxysmal atrial fibrillation) (CMS/HCC); Primary hypertension; Shortness of breath Social History Tobacco Use Types Packs/Day Years Used Date Smoking Tobacco: Former Cigarettes Passive Smoke Exposure: Past Smokeless Tobacco: Never Tobacco Cessation:Counseling Given: Not Answered Alcohol Use Standard Drinks/Week Comments Yes 0 (1 standard drink = 0.6 oz pur e alcohol) occasional [place] Safety & Environment Answer Date Rec orded Fear of Current or Ex-Partner Not on file Emotionally Abused Not on file 10/15/2023 Physically Abused Not on file 10/15/2023 Sexually Abused Not on file 10/15/2023 Physically or Sexually Abused Not on file Comments Unknown Sex and Gender Information Value Date Recorded Sex Assigned at Not on file Legal Sex Female 12:23 AM EDT Gender Identity Not on file Sexual Orientation Not on file documented as of this encounter Last Filed Vital Signs Vital Sign Reading Time Taken Comments Blood Pressure 97/64 02/13/2025 11:18 AM EDT Pulse 96 02/13/2025 11:18 AM EDT Temperature - - Respiratory Rate - - Oxygen Saturation 100% 02/13/2025 11:18 AM EDT Inhaled Oxygen Concentration - - Weight - - Height 154.9 cm (5' 1 ) 02/13/2025 11:18 AM EDT Body Mass Index - - documented in this encounter Progress Notes * Noble Aly MD - 02/13/2025 10:45 AM EDT Images from the original note were not included. [place] [facility] Ana Maria Badillo is a 59 y.o. year old female patient being seen for surgery clearance for D and C with Dr. Davidson. Patient states cardiac helms she is doing well. Patient states the SOB and MARCH are nothing new, its due to lack of exercise and no stamina. 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 Acute blood loss anemia Adult hypothyroidism Arthritis of ankle, left Bone cyst of left ankle Bleeding hemorrhoids Chronic gastritis Chronic left shoulder pain Chronic pain of left ankle Class 3 severe obesity due to excess calories with serious comorbidity and body mass index (BMI) of45.0 to 49.9 in adult COPD (chronic obstructive pulmonary disease) (CMS/HCC) DDD (degenerative disc disease), lumbar Edema of both legs Encounter for long-term (current) use of medications Equinus contracture of left ankle Essential hypertension, benign General weakness Generalized anxiety disorder Generalized osteoarthrosis, involving multiple sites Globus sensation Gouty arthritis Impaired functional mobility, balance, gait, and endurance Major depressive disorder, recurrent episode, moderate degree (CMS/HCC) Morbid obesity with BMI of 40.0-44.9, adult (CMS/HCC) 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 Periprosthetic fracture around internal prosthetic hip joint Post-menopausal bleeding Posterior tibial tendon dysfunction, left Prediabetes Right elbow pain History of 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 joint Tear of deltoid ligament of ankle, sequela Unilateral primary osteoarthritis, left hip Vitamin D deficiency Family History Problem Relation Name Age of Onset Hypertension Mother Heart attack Father Social History Tobacco Use Smoking status: Former Types: Cigarettes Passive exposure: Past Smokeless tobacco: Never Substance Use Topics Alcohol use: Yes Comment: occasional Drug use: Never KELLY Doris is seen in follow-up. This is the first time I am meeting her. Last visit with us was 07/24/2022. She is a 59-year-old woman with history of paroxysmal atrial fibrillation, hypertension and hypothyroidism. she reports having had 2 episodes of atrial fibrillation prior to 2019 COVID. No recurrence that she can tell. She has been maintained on aspirin due to low [id number] score. She needs to undergo D&C. She was referred by her COLLECTION SUPERVISOR for preoperative evaluation. she denies chest pain, She has shortness of breath on exertion NYHA class II symptoms, her ability to exert herself is limited by her musculoskeletal abnormalities and arthritis. She denies palpitations, dizziness, syncope and leg edema. There is no claudication. Review of Systems Constitutional: Negative. Cardiovascular: Positive for dyspnea on exertion. Objective Visit Vitals BP 97/64 (BP Location: Right arm, Patient Position: Sitting) Pulse 96 Ht 1.549 m (5' 1 ) SpO2 100% BMI 42.70 kg/m?? Smoking Status Former BSA 2.11 m?? Physical Exam Constitutional: Appearance: She is well-developed. She is obese. She is not ill-appearing. HENT: Head: Normocephalic and atraumatic. Nose: Nose normal. Eyes: General: No scleral icterus. Pupils: Pupils are equal, round, and reactive to light. Neck: Thyroid: No thyromegaly. Vascular: No JVD. Cardiovascular: Rate and Rhythm: Normal rate and regular rhythm. Pulses: Radial pulses are 2+ on the right side and 2+ on the left side. Heart sounds: Normal heart sounds. No murmur heard. No friction rub. No gallop. Pulmonary: Effort: Pulmonary effort is normal. No respiratory distress. Breath sounds: Normal breath sounds. No wheezing or rales. Chest: Chest wall: No tenderness. Abdominal: General: Bowel sounds are normal. There is no distension. Palpations: Abdomen is soft. Tenderness: There is no abdominal tenderness. Musculoskeletal: General: No swelling. Cervical back: Neck supple. Skin: General: Skin is warm and dry. Neurological: General: No focal deficit present. Mental Status: She is alert and oriented to person, place, and time. Psychiatric: Mood and Affect: Mood normal. Behavior: Behavior is cooperative. Judgment: Judgment normal. Allergies Allergies Allergen Reactions Meperidine Hives (Demerol) Medications Current Outpatient Medications: albuterol 90 mcg/actuation inhaler, Inhale 1 puff if needed., Disp: , Rfl: amLODIPine (Norvasc) 10 mg tablet, Take 1 tablet by mouth in the morning., Disp: , Rfl: aspirin 81 mg EC tablet, Take 162 mg by mouth in the morning., Disp: , Rfl: budesonide-formoteroL (Symbicort) 160-4.5 mcg/actuation inhaler, Inhale 2 puffs twice a day., Disp:, Rfl: busPIRone (Buspar) 5 mg tablet, Take 5 mg by mouth if needed each day., Disp: , Rfl: hydroCHLOROthiazide (HYDRODiuril) 25 mg tablet, Take 1 tablet by mouth in the morning., Disp: , Rfl: levothyroxine (Synthroid, Levoxyl) 75 mcg tablet, Take 1 tablet by mouth in the morning., Disp: , Rfl: losartan (Cozaar) 100 mg tablet, Take 1 tablet (100 mg) by mouth in the morning., Disp: 90 tablet, Rfl: 3 Pain Reliever, acetaminophen, 500 mg tablet, Take 2 tablets by mouth every 6 (six) hours during theday., Disp: , Rfl: PARoxetine (Paxil) 20 mg tablet, Take 1 tablet by mouth in the morning., Disp: , Rfl: dilTIAZem ER (Tiazac) 240 mg 24 hr capsule, Take 1 capsule by mouth in the morning. (Patient not taking: Reported on 02/13/2025), Disp: , Rfl: Recent Labs Blood testing 11/25/2024: Hemoglobin 11.7, platelets 316, potassium 3.0, BUN 3.0, creatinine 0.77, EGFR more than 60, LFTs elevated AST, normal ALT, elevated alkaline phosphatase. Imaging and other tests ECG 11/25/2024: Sinus rhythm, nonspecific T wave abnormality. ECG 07/11/2024: Sinus rhythm, low voltage QRS in chest leads. CTA chest 03/01/2021: No central pulmonary embolus. Echocardiogram 10/26/2019: Normal ventricular function, no valvular dysfunction, normal right-sided pressures. No pericardial effusion. Patient is in sinus rhythm during the exam. ABIs 02/02/2020: Right KENDRA 1.11, left KENDRA 1.07, normal TBI's. Assessment/Plan Diagnoses and all orders for this visit: Preop cardiovascular exam - Transthoracic echo (TTE) complete; Future PAF (paroxysmal atrial fibrillation) (CMS/HCC) - Transthoracic echo (TTE) complete; Future Primary hypertension Shortness of breath - Transthoracic echo (TTE) complete; Future 1. Paroxysmal atrial fibrillation: Currently in sinus rhythm by exam and recent ECG. Maintained on aspirin 162 mg daily due to [id number] score of 2 [hypertension, female gender]. Continue aspirin.I will check an echocardiogram to follow-up on ventricular function. 2. Shortness of breath: Likely related to deconditioning, I will check an echocardiogram. 3. Hypertension: This is well-controlled on the current medications including losartan, hydrochlorothiazide and amlodipine. Continue the same. 4. Preoperative evaluation for COLLECTION SUPERVISOR surgery: I will check an echocardiogram given her shortness of breath. If the echocardiogram is within normal limits then she can proceed at low cardiac risk. She would be able to hold aspirin 1 week prior to the surgery and resume it afterwards. Unless needed before I will plan on seeing her in follow-up in 1 year. Follow up in about 1 year (around 02/13/2026). Noble Aly MD ADDENDUM 03/10/25: The reviewed Echocardiogram performed on 03/09/2025 was within normal limits. She can proceed as above. Noble Aly MD documented in this encounter Plan of Treatment Scheduled Orders Name Type Priority Associated Diagnoses Orde r Schedule Transthoracic echo (TTE) complete Echocardiography Routine Preop cardiovascular exam PAF (paroxysmal atrial fibrillation) (CMS/HCC) Shortness of breath Expected: 02/13/2025 (Approximate), Expires: 02/13/2027 documented as of this encounter Visit Diagnoses Diagnosis Preop cardiovascular exam- Primary Pre-operative cardiovascular examination PAF (paroxysmal atrial fibrillation) (CMS/HCC) Atrial fibrillation Primary hypertension Unspecified essential hypertension Shortness of breath documented in this encounter Care Teams Clinical Resource Coordinator Relationship Specialty Start Date End Date Sam Garcia MD [address] [place] [address] PCP - General 07/24/22 documented as of this encounter
[2025-03-17 11:51] VITALS: BP 173/87; PULSE 90; TEMP 36.4; O2SAT 99; BMI 41.6
--- OUTSIDE RECORDS SUMMARY | 2025-03-17 11:54 | XMS_ITS | Encounter Summary ---
Author Organization [employer] Address [id number] [address] [place] [address] Care Team Providers Care Second Rigger Name Role Phone Sam Garcia MD Primary Care Provider [phone] Encounter Details Date Type Department Care Team (Late st Contact Info) Description 09/26/2024 Orders Only [facility] [address] [place] [address] Tia Collins RN Periprosthetic fracture around internal prosthetic left hip joint, subsequent encounter (Primary Dx); S/P revision of total hip Social History Tobacco Use Types Packs/Day Years Used Date Smoking Tobacco: Former Cigarettes Q uit: 2013 Smokeless Tobacco: Never Alcohol Use Standard Drinks/Week Comments Yes 14 (1 standard drink = 0.6 oz pu re alcohol) [facility] Utilities Answer Date Recorded In the past 12 months has [facility] electric, gas, oil, or water company threatened [...] hip documented in this encounter Care Teams Second Rigger Relationship Specialty Start Date End Date Sam Garcia MD PCP - General Family Medicine 06/30/24 documented as of this encounter
--- OUTSIDE RECORDS SUMMARY | 2025-03-17 11:54 | XMS_ITS | Clinical Summary ---
Author Organization [employer] Address [id number] [address] 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 Periprosthetic fracture arou nd internal prosthetic hip joint 11/07/2023 Paroxysmal atrial fibrillation 11/07/2023 Primary hypertension 11/07/2023 Vitamin D deficiency 11/07/2023 Acute blood loss anemia 11/07/2023 Primary localized osteoarthritis of left hip Encounters Date Type Department Care Team Description 01/09/2025 Travel from Last 3 Months Family History Medical History Relation Name Comments Kidney cancer Father Relation Name Status Comments Father Alive Mother Social History Tobacco Use Types Packs/Day Years Used Date Smoking Tobacco: Former Cigarettes Q uit: 2013 Smokeless Tobacco: Never Tobacco Cessation:Counseling Given: Not Answered Alcohol Use Standard Drinks/Week Comments Yes 14 (1 standard drink = 0.6 oz pu re alcohol) [facility] Utilities Answer Date Recorded In the past 12 months has th e electric, gas, oil, or water company [...] health care. Medical Devices Implanted Type Area Trust Advisor Device Identifier Shelf Expiration Date Model / Serial / Lot Assembly Cblpn 914mm 1.8mm Cbl Rd Cocr Crlge Strl Rpl [id number] - [id number] Implanted:Qty: 2 on 11/09/2023 by German Ramirez MD at [facility] Implant Cable Left: Hip [employer] 05/23/2033-2 8 / / [id number] Assembly Cblpn 914mm 1.[address] Cocr Crlge Strl Rpl [id number] - [id number] Implanted:Qty: 1 on 11/09/2023 by German Ramirez MD at [facility] Implant Cable Left: Hip [employer] 03/15/2033-2 8 [id number] Assembly Cblpn 914mm 1.[address] Cocr Crlge Strl Rpl [id number] - [id number] Implanted:Qty: 1 on 11/09/2023 by German Ramirez MD at [facility] Implant Cable Left: Hip [employer] 07/11/2033-2 8 [id number] Shell Actb 44mm Hip 3 Hl Clr Cd [place] G7 A Hmsphr - Sna - [id number] Implanted:Qty: 1 on 10/15/2023 by Wilfredo Keen DO at [facility] Orthopedic Implant Left: Hip [employer] 02/14/2028 [id number] / NA / [id number] Stem Fem 137d 1 08/06 37mm Fitmore Protasul-64 Hip Rgh Blast - Sna - [id number] Implanted:Qty: 1 on 10/15/2023 by Wilfredo Keen DO at [facility] Orthopedic Implant Left: Hip [employer] 05/23/2032 01.04224.201 / NA / [id number] Head Fem 28mm +3.5mm 08/06 Lg Trlg It Contin Blx D Hip Actb - Sna - [id number] Implanted:Qty: 1 on 10/15/2023 by Wilfredo Keen DO at [facility] Orthopedic Implant Left: Hip [employer] 05/20/2031 [id number] / NA / [id number] Acetabular Systemvivacit-E Highly Crosslinked Polyethylene Liner High Wall Implanted:Qty: 1 on 10/15/2023 by Wilfredo Keen DO at [facility] Orthopedic Implant Left: Hip [employer] 07/07/2026 [id number] / NA / [id number] Biolox Delta Modular Ceramic Head Implanted:Qty: 1 on 11/09/2023 by German Ramirez MD at [facility] Orthopedic Implant Left: Hip [employer] 07/28/2032 650-1161 / / [id number] Shell Actb 48mm Hip Mlhl Clr Cd [place] G7 C Hmsphr - [id number] Implanted:Qty: 1 on 11/09/2023 by German Ramirez MD at [facility] Orthopedic Implant Left: Hip [employer] 10/14/2028 [id number] / / [id number] Amanda Modular Revision Hip System Sts Distal Stem Implanted:Qty: 1 on 11/09/2023 by German Ramirez MD at [facility] Orthopedic Implant Left: Hip [employer] 03/13/2033 11-300-914 / / [id number] Liner Actb 32mm C Vivacit-E Lum G7 Hip Strl Lf - [id number] Implanted:Qty: 1 on 11/09/2023 by German Ramirez MD at [facility] Orthopedic Implant Left: Hip [employer] 08/08/2028 [id number] / / [id number] Body Cone Hip Fem C Std Os 60mm Amanda Ti Strl Mdlr Rev Sys Rpl - [id number] Implanted:Qty: 1 on 11/09/2023 by German Ramirez MD at [facility] Orthopedic Implant Left: Hip [employer] 09/10/2032 / / [id number] Screw Bn 25mm 6.5mm St Hip Trlg Strl Rpl [id number]+ [id number] - Sna - [id number] Implanted:Qty: 1 on 10/15/2023 by Wilfredo Keen DO at [facility] Screw Left: Hip [employer] 09/29/2032 [id number] / NA / [id number] Screw Bn 30mm 6.5mm St Actb Giovani Trlg Strl Rpl [id number] +[id number] - Sna - [id number] Implanted:Qty: 1 on 10/15/2023 by Wilfredo Keen DO at [facility] Screw Left: Hip [employer] 04/04/2033 [id number] / NA / [id number] Screw Bn 20mm 6.5mm St Hip Actb Trlg Strl Rpl [id number]+[id number]+9 [id number] - [id number] Implanted:Qty: 1 on 11/09/2023 by German Ramirez MD at [facility] Screw Left: Hip [employer] 10/21/2029 [id number] / / [id number] Screw Bn 50mm 6.5mm St Hip Trlg Strl Rpl [id number] - [id number] Implanted:Qty: 1 on 11/09/2023 by German Ramirez MD at [facility] Screw Left: Hip [employer] 08/14/2033 [id number] / / [id number] Screw Bn 15mm 6.5mm St Hip Actb Trlg Strl Rpl 874516+721730 - [id number] Implanted:Qty: 1 on 11/09/2023 by German Ramirez MD at [facility] Screw Left: Hip [employer] 03/28/2033 [id number] / / [id number] Screw Bn 15mm 6.5mm St Hip Actb Trlg Strl Rpl [id number] - [id number] Implanted:Qty: 1 on 11/09/2023 by German Ramirez MD at [facility] Screw Left: Hip [employer] 03/24/2033 [id number] / / [id number] Explanted Type Area Trust Advisor Device Identifier Shelf Expiration Date Model / Serial / Lot G7 Acetabular System Explanted:Qty: 1 on 10/15/2023 by Wilfredo Keen DO at [facility] Orthopedic Implant Left: Hip [employer] 06/12/2026 [id number] / NA / [id number] 4.5mm Non-Self Tapping Cortical Screws Explanted:Qty: 1 on 10/15/2023 by Wilfredo Keen DO at [facility] Screw Left: Hip [employer] 08/24/2032 4845-14 [...] - 1.60 ng/dL 01/09/2025 11:11 AM EDT [facility] TSH 1.19 0.49 - 4.67 uIU/mL 01/09/2025 11:11 AM EDT [facility] Blood Venous blood / Unknown Venipuncture / Unknown 01/09/2025 6:40 AM EDT 01/09/2025 6:40 AM EDT us Sam Garcia MD LAB BLOOD ORDERABLES Final Resul t [facility] [address] [place] [address], [place] [phone] * (ABNORMAL) Uric acid (01/09/2025 6:40 AM EDT) URIC ACID 8.8(H) 2.6 - 7.2 mg/dL 01/09/2025 11:01 AM EDT [facility] Blood Venous blood / Unknown Venipuncture / Unknown 01/09/2025 6:40 AM EDT 01/09/2025 6:40 AM EDT us Sam Garcia MD LAB BLOOD ORDERABLES Final Resul t [facility] [address] [place] [address], [place] [phone] * T3, free (01/09/2025 6:40 AM EDT) FREE T3 3.18 2.50 - 3.90 pg/mL 01/09/2025 11:11 AM EDT [facility] Blood Venous blood / Unknown Venipuncture / Unknown 01/09/2025 6:40 AM EDT 01/09/2025 6:40 AM EDT us Sam Garcia MD LAB BLOOD ORDERABLES Final Resul t Performing Organization Address City/[facility]/ZIP Co de Phone Number [facility] [address] [place] [address], [place] [phone] from Last 3 Months Insurance [facility] MEDICAID Advance Directives * Full Code (Latest Code Status on File) Date Activated Date Inactivated Comments 11/07/2023 1:20 PM 11/14/2023 4:39 PM * Full Code Date Activated Date Inactivated Comments 10/15/2023 7:18 AM 10/17/2023 3:35 PM Care Teams Picking Machine Operator Helper Relationship Specialty Start Date End Date Sam Garcia MD PCP - General Family Medicine 06/30/24
--- OUTSIDE RECORDS SUMMARY | 2025-03-17 11:54 | XMS_ITS | Clinical Summary ---
Author Organization [facility] Address [address] [place] [address] Care Team Providers Care Life Manager Name Role Phone Sam Garcia MD Primary Care Provider [phone] Allergies Active Allergy Reactions Criticality Noted Date [...] Plan (03/01/2025 8:48 AM EDT): Follow with psychologist research assistant. Gouty arthritis 01/10/2025 Assessment & Plan (03/01/2025 [...] Encounters Date Type Department Care Team Description 03/17/2025 Clinisync Result Encounter [facility] External Department Unsolicited Provider, Generic External Data 03/09/2025 Clinisync Result Encounter NOMS External Department Unsolicited Provider, Generic External Data 03/02/2025 Clinisync Result Encounter NOMS External Department Unsolicited Johnny Davidson DO 03/02/2025 Clinisync Result Encounter NOMS External Department Unsolicited Provider, Generic External Data 03/01/2025 8:15 AM EDT Office Visit [facility] [address] [place] [address] Sam Garcia MD Preoperative clearance (Primary Dx); Post-menopausal bleeding; Essential hypertension, benign ; Paroxysmal atrial fibrillation (HCC); Chronic obstructive pulmonary disease, unspecified COPD type (HCC); Gouty arthritis 03/01/2025 Bamboo flowsheet [facility] [address] [place] [address] Sam Garcia MD 02/20/2025 10:40 AM EDT Consult [facility] [address] [place] [address] Johnny Davidson DO Pre-op examination; Post-menopausal bleeding 02/01/2025 7:00 AM EDT Treatment [facility] [address] [place] [phone] Vahe Kyle, PT Primary osteoarthritis of left hip; Status post total hip replacement, left 02/01/2025 Bamboo flowsheet [facility] [address] [place] [address] Vahe Kyle, PT 02/01/2025 Travel 01/25/2025 12:00 PM EDT Evaluation [facility] [address] [place] [address] Vahe Kyle, PT General weakness (Primary Dx); Impaired functional mobility, balance, gait, and endurance; History of 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 joint 01/25/2025 Plan of Care Documentation [facility] [address] [place] [phone] 01/25/2025 Bamboo flowsheet [facility] [address] [place] [phone] Saroj, Vahe Eusebia, PT 01/25/2025 Travel 01/10/2025 10:30 AM EDT Office Visit [facility] [address] [facility] [address] [place] [address] Johnny Davidson, DO Post-menopausal bleeding 01/10/2025 Results Follow-Up [facility] [address] [place] [address] Sam Garcia MD Gouty arthritis (Primary Dx) 01/10/2025 Bamboo flowsheet [facility] [address] [facility] [place] [address] Johnny Davidson, 01/04/2025 9:15 AM EDT Office Visit [facility] [address] [place] [address] Sam Garcia MD Essential hypertension, benign (Primary Dx); Major depressive disorder, recurrent episode, moderate degree (HCC); Generalized anxiety disorder ; Chronic obstructive pulmonary disease, unspecified COPD type (HCC); Adult hypothyroidism ; Breast cancer screening by mammogram; Arthritis of ankle, left; Primary osteoarthritis of left hip; Status post total hip replacement, left 01/04/2025 Bamboo flowsheet [facility] [address] [place] [phone] Sam Garcia MD from Last 3 Months Family History Medical History Relation Name Comments Arthritis Father Relation Name Status Comments Father Alive Mother Social History Tobacco Use Types Packs/Day Years Used Date Smoking Tobacco: Former Cigarettes - 2012 Tobacco Cessation:Counseling Given: Not Answered [...] Visit [facility] [address] [facility] [place] [phone] Nola Knight PA [address] [facility] [address] [place], [place] [phone] 06/07/2025 8:00 AM EDT Office Visit [facility] [address] [place] [address] Sam Garcia MD [address] [place] [address] Health Maintenance Due Date Last Done Comments [...] Comments ALL CBC WITH AUTO DIFF Routine 03/17/2025 6:09 AM EDT CA ECHO DOPPLER COMPLETE 03/09/2025 11:36 AM EDT XR CHEST 2V 03/02/2025 11:36 AM EDT [...] Relevant to Health Maintenance Results * (ABNORMAL) ALL CBC WITH AUTO DIFF (03/17/2025 6:09 AM EDT) Only the most recent of2 resultswithin the time period is included. TBH WBC 9.0 4.0 - 11.0 10 3/uL TBH TBH RBC 3.80(L) 4.20 - 5.40 10 6/uL TBH TBH HGB 10.0(L) 12.0 - 16.0 g/dL TBH TBH HCT 31.7(L) 36.0 - 48.0 % TBH TBH MCV 83.4 81.0 - 99.0 fL TBH TBH MCH 26.3(L) 26.7 - 34.0 pg TBH TBH MCHC 31.5 29.9 - 35.2 g/dL TBH TBH RDW 17.9(H) 11.0 - 15.0 % TBH TBH PLT 366 150 - 450 10 3/uL TBH TBH MPV 8.4(L) 9.5 - 13.5 fL TBH NEUTROPHILS PERCENT AUTO 79.7(H) 43.0 - 75.0 % TBH LYMPHOCYTES PERCENT AUTO 12.8(L) 20.5 - 60.0 % TBH MONOCYTES PERCENT AUTO 5.4 1.7 - 12.0 % TBH TBH EO % 0.7(L) 0.9 - 7.0 % TBH BASOPHILS PERCENT AUTO 0.3 0.2 - 2.0 % TBH IMMATURE GRANULOCYTES PCT AUTO 1.1(H) 0.0 - 0.5 % TBH NEUTROPHILS ABSOLUTE AUTO 7.2(H) 1.4 - 6.5 10 3/uL TBH LYMPHOCYTES ABSOLUTE AUTO 1.2 1.2 - 3.8 10 3/uL TBH MONOCYTES ABSOLUTE AUTO 0.5 0.3 - 0.8 10 3/uL TBH TBH EO # 0.1 0.0 - 0.7 10 3/uL TBH BASOPHILS ABSOLUTE AUTO 0.0 0.0 - 0.1 10 3/uL TBH IMMATURE GRANULOCYTES ABS AUTO 0.10(H) 0.00 - 0.03 10 3/uL TBH 03/17/2025 6:09 AM EDT 03/17/2025 6:11 AM EDT Narrative CLINISY[facility] - 03/17/2025 6:14 AM EDT us Johnny Lety DO CLINISYNC Final Result [facility] * CA ECHO DOPPLER COMPLETE (03/09/2025 11:36 AM EDT) Anatomical Region Laterality Modality Other 03/09/2025 11:3 6 AM EDT Narrative 03/09/2025 11:37 [place] [address] Cardiology Report Signed Patient: OG SHEFFIELD MR#: [id number] : 1965 Acct:[id number] Age/Sex: 59 / F ADM Date: 03/09/25 Loc: CARD Attending Dr: IGNACIO PHAM Ordering Physician: IGNACIO PHAM Date of Service: 03/09/25 Procedure(s): CA echo doppler complete Accession Number(s): [id number] cc: IGNACIO PHAM; Sam Garcia M.D. Patient Name: OG SHEFFIELD MR#: [id number] : 1965 Exam Date: 03/09/2025 Ordering Doctor: [...] Signed By: 03/09/25 1137 DD/ 1136 TD/TT: Pilot Instructor: Procedure Note Radiology, Radiologist, MD - 03/09/2025 [place] [address] Cardiology Report Signed Patient: OG SHEFFIELD AMR#: [id number] : 1965Acct:[id number] Age/Sex: 59 / FADM Date: 03/09/25 Loc: CARD Attending Dr: IGNACIO PHAM Ordering Physician: IGNACIO PHAM Date of Service: 03/09/25 Procedure(s): CA echo doppler complete Accession Number(s): [id number] cc: IGNACIO PHAM; Sam Garcia M.D. Patient Name: OG SHEFFIELD MR#: [id number] : 1965 Exam Date: 03/09/2025 Ordering Doctor: DR IGNACIO PHAM M.D. ECHOCARDIOGRAM REPORT PROCEDURE: CA ECHO DOPPLER COMPLETE INDICATIONS: Atrial fibrillation, Dyspnea COMPARISON: None. DESCRIPTION: COMPLETE ECHOCARDIOGRAM Real-time transthoracic echocardiography with 2D, M-mode, spectral and color flow Dopplerperformed. QUALITY: Technical quality was good. LEFT VENTRICLE: Normal chamber size. Normal left ventricular wall thickness. LV EF: Global left ventricular systolic function is hyperdynamic. Calculated left ventricular ejection fraction is 67%. No wall motion abnormalities. DIASTOLIC: Normal diastolic function. ATRIAL SEPTUM: Inadequately seen. LEFT ATRIUM: Normal chamber size. RIGHT ATRIUM: Normal chamber size. RIGHT VENTRICLE: Normal chamber size. Normal right ventricularsystolic function. TRICUSPID VALVE: Normal mobility and thickness. No stenosis withtrivial regurgitation. No evidence of pulmonary hypertension. RVSP 18mmHg. MITRAL VALVE: Mildly thickened with normal mobility. No evidence ofmitral valve stenosis. Mild mitral annular calcification. No mitral regurgitation. AORTIC VALVE: Normal trileaflet appearance. Thickened aortic valve.Normal leaflet mobility. No evidence of aortic valve stenosis. No aortic regurgitation. AORTIC ROOT: Normal diameter and appearance. PULMONIC VALVE: Normal thickness and mobility. No stenosis. No regurgitation. PERICARDIUM: Trivial to small circumferential pericardial effusion. IVC: Collapses with inspiration. Normal size. CONCLUSION: 1. Global left systolic function is hyperdynamic; visually estimatedejection fraction 65 to 70% 2. Normal right [...] 11:36 Dictated By: Cara Sánchez M.D. Signed By:03/09/25 1137 DD/ 1136 TD/TT: Pilot Instructor: Generic External Data Provider [facility] IMAGING Final Result * XR CHEST 2V (03/02/2025 11:36 AM EDT) Anatomical Region Laterality Modality Other 03/02/2025 11:3 6 AM EDT Narrative 03/02/2025 11:39 [place] [address] XRay Report Signed Patient: OG SHEFFIELD MR#: [id number] : 1965 Acct:[id number] Age/Sex: 59 / F ADM Date: 03/02/25 Loc: PST Attending Dr: Johnny Davidson D.O. Ordering Physician: Johnny Davidson D.O. Date of Service: 03/02/25 Procedure(s): XR chest 2V Accession Number(s): [id number] cc: Johnny Davidson D.O.; Sam Garcia M.D. The [address] [address] Patient Name: OG SHEFFIELD MRN: [id number] date: 1965 Sex: F Assigned Patient Location: SURGOUT Current Patient Location: SURGOUT Accession/Order Number: [id number] Exam Date: 03/02/2025 11:34 Report Date: 03/02/2025 [...] Alarcon M.D. 03/02/2025 11:36 AM Dictation Location: [place] [address] Electronically authenticated by: [id number] Y Date: 03/02/2025 11:36 Dictated By: Marium Alarcon M.D. Signed By: 03/02/25 1139 DD/ 1136 TD/TT: Pilot Instructor: Procedure Note Radiology, Radiologist, MD - 03/02/2025 [place] [address] XRay Report Signed Patient: OG SHEFFIELD AMR#: [id number] : 1965Acct:[id number] Age/Sex: 59 / FADM Date: 03/02/25 Loc: [facility] Attending Dr: Johnny Davidson D.O. Ordering Physician: Johnny Davidson D.O. Date of Service: 03/02/25 Procedure(s): XR chest 2V Accession Number(s): [id number] cc: Johnny Davidson D.O.; Sam Garcia M.D. The [address] [address] Patient Name: OG SHEFFIELD MRN: [id number] date: 1965 Sex: F Assigned Patient [facility] Accession/Order Number: [id number] Exam Date: 03/02/2025 11:34 Report Date: 03/02/2025 [...] Alarcon M.D. 03/02/2025 11:36 AM Dictation Location: [place] [address] Electronically authenticated by: [id number] Y Date: 1:36 Dictated By: Marium Alarcon M.D. Signed By:03/02/25 1139 DD/ 1136 TD/TT: Pilot Instructor: Johnny Davidson DO CLINIS[facility] IMAGING Final Result [...] External Data Provider CLINISYNC F inal Result [facility] * [facility]CF APTT (03/02/2025 11:10 AM EDT) PARTIAL THROMBOPLASTIN TIME 25.8 22.3 - 36.2 sec TBH 03/02/2025 11:1 0 AM EDT 03/02/2025 11:15 AM EDT Narrative CLINISYNC - 03/02/2025 12:29 PM EDT Generic External Data Provider CLINISYNC F inal Result [facility]INIS[facility]NC TB * (ABNORMAL) ALL BASIC METABOLIC PANEL (03/02/2025 [...] 0.55 - 1.02 mg/dL TBH TBH EGFR-AF TOGOLESE >60 >=60 mL/min/1.7 3m 2 TBH TBH EGFR-NON AF TOGOLESE >60 >=60 mL/min/1.7 3m 2 TBH BUN CREATININE RATIO 6.8 TBH CALCIUM 8.5 8.5 - 10.1 mg/dL TBH 03/02/2025 11:1 0 AM EDT 03/02/2025 11:15 AM EDT Narrative CLINISYNC - 03/02/2025 11:36 AM EDT us Johnny Davidson DO CLINISYNC Final Result [facility]IN[facility] TB * (ABNORMAL) Uric acid (01/09/2025 6:40 AM EDT) URIC ACID 8.8(H) 2.6 - 7.2 mg/dL [facility] Comment: PERFORMED AT [facility] [address],[place] [address] 01/09/2025 6:40 AM EDT 01/09/2025 9:54 AM EDT us Sam Garcia MD LAB BLOOD ORDERABLES Final Resul t [facility] * T3, free (01/09/2025 6:40 AM EDT) FREE T3 3.18 2.50 - 3.90 pg/mL [facility] Comment: PERFORMED AT [place] [address],[place] [address] 01/09/2025 6:40 AM EDT 01/09/2025 9:54 AM EDT Sam Garcia MD LAB BLOOD ORDERABLES Final Resul t Performing Organization Address City/[facility] Co de Phone Number [facility] * TSH (01/09/2025 6:40 AM EDT) FREE T4 1.03 0.61 - 1.60 ng/dL [facility] TSH 1.19 0.49 - 4.67 uIU/mL [facility] Comment: PERFORMED AT [place] [address] [address] 01/09/2025 6:40 AM EDT 01/09/2025 9:54 AM EDT Sam Garcia MD LAB BLOOD ORDERABLES Final Resul t [facility] * Pap Smear (07/06/2023 12:00 AM EST) Swab Cervical swab / Unknown us Johnny Davidson DO LAB CYTOLOGY ORDERABLES Final Re sult EXTERNAL LAB from Last 3 Months or Most Recently Relevant to Health Maintenance Insurance [employer] [place]ICA[place] Care Teams Life Manager Relationship Specialty Start Date End Date Sam Garcia MD [address] [place] [address] PCP - General Family Medicine 09/14/23
--- OUTSIDE RECORDS SUMMARY | 2025-03-17 11:54 | XMS_ITS | Encounter Summary ---
Author Organization [facility] Address [address] [place] [address] Care Team Providers Care Wheelage Clerk Name Role Phone Sam Garcia MD Primary Care Provider [phone] Encounter Details Date Type Department Care Team ([facility] Contact Info) Description 03/17/2025 Clinisync Result Encounter N[facility]S External [...] Upcoming Encounters Date Type Department Care Team ([facility] Contact Info) Description 03/27/2025 8:30 AM EDT Office Visit [facility] [address] [place] [address] Nola Knight PA [address] [place] [address] 06/07/2025 8:00 AM EDT Office Visit [facility] [address] [place] [address] Sam Garcia MD [address] [place] [address] documented as of this encounter Procedures Procedure Name Priority Date/Time Associated Diagnosis Comments ALL CBC WITH AUTO DIFF Routine 03/17/2025 6:09 AM EDT documented in this encounter Results * (ABNORMAL) ALL CBC WITH AUTO DIFF (03/17/2025 6:09 AM EDT) TBH WBC 9.0 4.0 - 11.0 10 [...] CLINISYNC - 03/17/2025 6:14 AM EDT us Azeem Lety DO CLINISYNC Final Result [facility] TB documented in this encounter Visit Diagnoses Not on filedocumented in this encounter Care Teams Wheelage Clerk Relationship Specialty Start Date End Date Sam Garcia MD [address] [place] [address] PCP - General Family Medicine 09/14/23 documented as of this encounter
--- OUTSIDE RECORDS SUMMARY | 2025-03-17 11:54 | XMS_ITS | Encounter Summary ---
Author Organization [facility] Address [address] [place] [address] Care Team Providers Care Residential Gas Heat Technician Name Role Phone Sam Garcia MD Primary Care Provider [phone] Encounter Details Date Type Department Care Team ([facility] Contact Info) Description 03/09/2025 Clinisync Result Encounter NOMS External Department [...] Upcoming Encounters Date Type Department Care Team ([facility] Contact Info) Description 03/27/2025 8:30 AM EDT Office Visit [facility] [address] [facility] [place] [address] Nola Knight PA [address] [place] [address] 06/07/2025 8:00 AM EDT Office Visit [facility] [address] [place] [address] aSm Garcia MD [address] [place] [address] documented as of this encounter Procedures Procedure Name Priority Date/Time Associated Diagnosis Comments CA ECHO DOPPLER COMPLETE 03/09/2025 11:36 AM EDT documented in this encounter Results * CA ECHO DOPPLER COMPLETE (03/09/2025 11:36 AM EDT) Anatomical Region Laterality Modality Other 03/09/2025 11:3 6 AM EDT Narrative 03/09/2025 11:37 AM EDT The [place] [id number] Cardiology Report Signed Patient: DORIS SHEFFIELD MR#: [id number] : 1965 Acct:[id number] Age/Sex: 59 / F ADM Date: 03/09/25 Loc: CARD Attending Dr: IGNACIO PHAM Ordering Physician: IGNACIO PHAM Date of Service: 03/09/25 Procedure(s): CA echo doppler complete Accession Number(s): [id number] cc: IGNACIO PHAM; Sam Garcia M.D. Patient Name: DORIS SHEFFIELD MR#: [id number] : 1965 Exam Date: 03/09/2025 Ordering Doctor: [...] Signed By: 03/09/25 1137 DD/ 1136 TD/TT: Superintendent Drilling And Production: Procedure Note Radiology, Radiologist, MD - 03/09/2025 [place] [address] Cardiology Report Signed Patient: DORIS SHEFFIELD AMR#: [id number] : 1965Acct:[id number] Age/Sex: 59 / FADM Date: 03/09/25 Loc: CARD Attending Dr: IGNACIO PHAM Ordering Physician: IGNACIO PHAM Date of Service: 03/09/25 Procedure(s): CA echo doppler complete Accession Number(s): [id number] cc: IGNACIO PHAM; Sam Garcia M.D. Patient Name: DORIS SHEFFIELD MR#: [id number] : 1965 Exam Date: 03/09/2025 Ordering Doctor: [...] M.D. Signed By:03/09/25 1137 DD/ 1136 TD/TT: Superintendent Drilling And Production: Generic External Data Provider [facility] IMAGING Final Result documented in this encounter Visit Diagnoses Not on filedocumented in this encounter Care Teams Residential Gas Heat Technician Relationship Specialty Start Date End Date Sam Garcia MD [address] [place] [address] PCP - General Family Medicine 09/14/23 documented as of this encounter
--- OUTSIDE RECORDS SUMMARY | 2025-03-17 11:55 | XMS_ITS | Encounter Summary ---
Author Organization [facility] Address [address] [place] [address] Care Team Providers Care Gis Technician Name Role Phone Sam Garcia MD Primary Care Provider [phone] Encounter Details Date Type Department Care Team ([facility] Contact Info) Description 01/10/2025 Results [facility]Up [facility] [address] [place] [address] Sam Garcia MD [address] [place] [phone] Gouty arthritis (Primary Dx) Social History Tobacco [...] AM EDT Office Visit [facility] [address] [place], [place] [address] [address] Nola Knight PA [address] [place] [address] [place] [address] 06/07/2025 8:00 AM EDT Office Visit [facility] [address] [place] [phone] Sam Garcia MD [address] [place] [address] documented as of this encounter Visit Diagnoses Diagnosis Gouty arthritis- Primary Gouty arthropathy, unspecified documented in this encounter Care Teams Gis Technician Relationship Specialty Start Date End Date Sam Garcia MD [address] [place] [address] PCP - General Family Medicine 09/14/23 documented as of this encounter
--- OUTSIDE RECORDS SUMMARY | 2025-03-17 11:55 | XMS_ITS | Encounter Summary ---
Author Organization [employer] Address [id number] [address] [place] [address] Care Team Providers Care Wage And Salary Specialist Name Role Phone Sam Garcia MD Primary Care Provider [phone] Encounter Details Date Type Department Care Team (Late st Contact Info) Description 11/12/2023 Orders Only [facility] [address] [place] [address] Tia Collins, ADRIENNE S/P revision [...] INFORMATION:S/P revision of total hip . Mechanical: Shelby and leg length. COMPARISON: None. PROCEDURE: AP [...] INFORMATION:S/P revision of total hip . Mechanical: Shelby and leglength. COMPARISON: None. PROCEDURE: AP upright [...] extremity measures 78.8 cm. Left lower extremity rafproww73.0 cm. Finalized by Lan Claire MD on 11/30/2023 9:32 AM German Ramirez MD [facility] O RDERABLES Final Result * [...] hip documented in this encounter Care Teams Wage And Salary Specialist Relationship Specialty Start Date End Date Sam Garcia MD PCP - General Family Medicine 06/30/24 documented as of this encounter
--- OUTSIDE RECORDS SUMMARY | 2025-03-17 11:55 | XMS_ITS | Encounter Summary ---
Author Organization [facility] Address [address] [facility] [place] [address] Care Team Providers Care Hand Violin Maker Name Role Phone Sam Garcia MD Primary Care Provider [phone] Encounter Details Date Type Department Care Team ([facility] Contact Info) Description 09/18/2023 External Result Encounter [facility] [address] [facility] [address] [place] [address] Wilfredo Keen, DO [address] [facility] [address] [place] [address] Social History Tobacco Use Types Packs/Day Years [...] Date Type Department Care Team ([facility] Contact Info) Description 03/27/2025 8:30 AM EDT Office Visit [facility] [address] [facility] [phone] Nola Knight PA [address] [place] [address] 06/07/2025 8:00 AM EDT Office Visit [facility] [address] [place] [phone] Sam Garcia MD [address] [place] [address] documented as of this encounter Procedures Procedure [...] not use a race coefficient. PERFORMED AT [facility] [address],[place] [address] 09/18/2023 9:54 AM EST 09/18/2023 9:55 AM [...] 0.0 - 0.2 X10E9/L [facility] Comment:PERFORMED AT [facility] [address],[place] [address] 09/18/2023 9:54 AM EST 09/18/2023 9:55 AM EST Wilfredo Keen DO LAB BLOOD ORDERABLES Final Result [facility] documented in this encounter Visit Diagnoses Not on filedocumented in this encounter Care Teams Hand Violin Maker Relationship Specialty Start Date End Date Sam Garcia MD [address] [place] [address] PCP - General Family Medicine 09/14/23 documented as of this encounter
--- OUTSIDE RECORDS SUMMARY | 2025-03-17 11:55 | XMS_ITS | Encounter Summary ---
Author Organization [facility] Address [address] [place] [address] Care Team Providers Care Loader Unloader Name Role Phone Sam Garcia MD Primary Care Provider [phone] Sam Garcia MD Primary Care Provider [phone] Encounter Details Date Type Department Care Team [...] Upcoming Encounters Date Type Department Care Team ([facility] Contact Info) Description 03/27/2025 8:30 AM EDT Office Visit [facility] OB [address] [facility] [place] [phone] Nola Knight PA [address] [facility] [place] [address] 06/07/2025 8:00 AM EDT Office Visit [facility] SHIRLENE PERRY [address] [place] [address] Sam Garcia MD [address] [place] [address] documented as of this encounter Procedures Procedure [...] PM EST Narrative 08/04/2023 2:51 [place] [address] XRay Report Signed Patient: DORIS SHEFFIELD MR#: [id number] : 1965 Acct:[id number] Age/Sex: 57 / F ADM Date: 08/04/23 Loc: [facility] Attending Dr: Azeem Davidson D.O. Ordering Physician: Chary Wilks NP Date of Service: 08/04/23 Procedure(s): XR chest 2V Accession Number(s): [id number] cc: Sam Garcia M.D.; Chary Wilks NP [place] [address] Patient Name: DORIS SHEFFIELD MRN: [facility]:[id number] date: 1965 Sex: F Assigned Patient Location: [facility] Current Patient Location: [facility] Accession/Order Number: [id number] Exam Date: 08/04/2023 14:25 Report Date: 08/04/2023 [...] M.D. Signed By: 08/04/231450 DD/ 48 TD/TT: Pizza Driver: Procedure Note Radiology, Radiologist, - 08/04/2023 [place] [address] XRay Report Signed Patient: DORIS SHEFFIELD AMR#: [id number] : 1965Acct:[id number] Age/Sex: 57 / FADM Date: 08/04/23 Loc: [facility] Attending Dr: Azeem Davidson D.O. Ordering Physician: Chary Wilks NP Date of Service: 08/04/23 Procedure(s): XR chest 2V Accession Number(s): [id number] cc: Sam Garcia M.D.; Chary Wilks NP The [place] [address] Patient Name: DORIS SHEFFIELD MRN: [id number] date: 1965 Sex: F Assigned Patient Location: [facility] Current Patient Location: [facility] Accession/Order Number: [id number] Exam Date: 08/04/2023 14:25 Report Date: 08/04/2023 [...] Pollack M.D. Signed By:08/04/231450 DD/ 48 TD/TT: Pizza Driver: us Generic External Data Provider [facility] Final Result * [facility] APTT (08/04/2023 2:15 PM EST) PARTIAL THROMBOPLASTIN TIME 26.7 22.3 - 36.2 sec [facility] 08/04/2023 2:15 PM EST 08/04/2023 2:17 PM EST Narrative [facility] - 08/04/2023 2:54 PM EST us Azeem Lety DO [facility] Final Result [facility] * SRMCO[facility] PROTHROMBIN TIME INR W/O COUM (08/04/2023 2:15 PM EST) PROTHROMBIN TIME 10.2 9.0 - 11.6 sec TBH [facility] INR 0.96 [facility] Comment: DESIRED INR: 2.0-3.0 CONDITIONS NOT LISTED BELOW 2.5-3.5 FOR PROSTHETIC HEART VALVE REPLACEMENT 2.5-3.5 RECURRENT THROMBOSIS 08/04/2023 2:15 PM EST 08/04/2023 2:17 PM EST Narrative [facility] - 08/04/2023 2:54 PM EST us Azeem Lety DO [facility] Final Result [facility] documented in this encounter Visit Diagnoses Not on filedocumented in this encounter Care Teams Loader Unloader Relationship Specialty Start Date End Date Sam Garcia MD PCP - General Family Medicine 05/04/23 09/13/23 Sam Garcia MD [address] [place] [address] PCP - General Family Medicine 09/14/23 documented as of this encounter
--- OUTSIDE RECORDS SUMMARY | 2025-03-17 11:55 | XMS_ITS | Patient Health Record ---
Author Organization The [facility] [place] Address [address] [place] [address] Care Team Providers Care Supervisor Pumping Name Role Phone Sam Garcia MD Primary [...] Date Coverage End Date [employer] [address] [address] [place] [address] [id number] Justino Doris Self - patient is the insured 9 Medical (General) History Medical History History ICD Code Chronic kidney disease (CKD), stage III (moderate) N18.30 arthritis atrial fibrillation hypertension joint replacement Surgical History Surgery Date(Month/Year) right Hip replacement 2017 oophorectomy unilateral right 2002 knee surgery right 2000 left ankle replacement 2019 tubal back nerve ablation
--- OUTSIDE RECORDS SUMMARY | 2025-03-17 11:55 | XMS_ITS | Clinical Summary ---
Author Organization [facility] Address [address] [place] [address] Care Team Providers Care Chairman & Co Founder Name Role Phone Sam Garcia MD Primary Care Provider [phone] Allergies Active Allergy Reactions Criticality Noted Date [...] Encounters Date Type Department Care Team Description 03/09/2025 Orders Only [facility] at [place] [address] [place] [address] ProviderVicki MD 02/13/2025 10:45 AM EDT Office Visit [facility] [address] [place] [address] Noble Aly MD Preop cardiovascular exam (Primary [...] 1965 Colonoscopy 1965 Diabetes: Hemoglobin A1C 1965 FOBT 1965 Sigmoidoscopy 1965 Depression Screening 1979 HPV/Cotest 1997 Mammogram 2007 FIT 03/23/2020 03/23/2019 Colorectal Cancer Screening 03/23/2022 FIT-DNA 03/23/2022 03/23/2019 COVID-19 Vaccine (3 - 2023-2 5 season) 2024 03/20/2021, 02/26/2021 Hepatitis B Vaccines (2 of 3 - Hep B Twinrix 3-dose series) 12/15/2024 11/17/2024 Zoster Vaccines (2 of 2) 01/12/2025 11/17/2024 Influenza Vaccine (#1) 2025 , 05/11/2019 Cervical Cancer Screening 07/06/2026 Pap Smear [...] on patient's age to complete this topic Procedures Procedure Name Priority Date/Time Associated Diagnosis Comments COMPLETE TRANSTHORACIC ECHO (TTE) W/WO IMAGING AGENT, STRAIN, 3D, BUBBLE STUDY Routine 03/09/2025 11:42 AM EDT from Last 3 Months Results * Complete Echo (TTE) w/wo Imaging Agent, Strain, 3D, Bubble Study (03/09/2025 11:42 AM EDT) Anatomical Region Laterality Modality Ultrasound us Historical Provider MD LEIGH ECHO PROCEDURES Final Result from Last 3 Months Insurance [employer] [employer] Care Teams Chairman & Co Founder Relationship Specialty Start Date End Date Sam Garcia MD [address] [place] [address] PCP - General 07/24/22
--- OUTSIDE RECORDS SUMMARY | 2025-03-17 11:55 | XMS_ITS | Encounter Summary ---
Author Organization [employer] Address [id number] [address] [place] [address] Care Team Providers Care Heel Coverer Name Role Phone Sam Garcia MD Primary Care Provider [phone] Encounter Details Date Type Department Care Team (Late st Contact Info) Description 04/27/2024 Orders Only [facility] [address] [place] [address] Tia Collins, ADRIENNE S/P revision of total hip (Primary Dx) Social History Tobacco Use Types Packs/Day Years Used Date Smoking Tobacco: Former Cigarettes Q uit: 2013 Smokeless Tobacco: Never Alcohol Use Standard Drinks/Week Comments Yes 14 (1 standard drink = 0.6 oz pu re alcohol) [facility] Utilities Answer Date Recorded In the [...] hip documented in this encounter Care Teams Heel Coverer Relationship Specialty Start Date End Date Sam Garcia MD PCP - General Family Medicine 06/30/24 documented as of this encounter
--- OUTSIDE RECORDS SUMMARY | 2025-03-17 11:55 | XMS_ITS | Encounter Summary ---
Author Organization [facility] Address [address] [facility] [place] [address] Care Team Providers Care Marine Fitter Name Role Phone Sam Garcia MD Primary Care Provider [phone] Encounter Details Date Type Department Care Team ([facility] Contact Info) Description 07/13/2024 Orders Only [facility] [address] [place] [address] NomsMac MD Social History Tobacco Use Types [...] EDT Office Visit [facility] BCP OB [address] [facility] [place] [address] Nola Knight PA [address] [place] [address] 06/07/2025 8:00 AM EDT Office Visit [facility] SHIRLENE PERRY [address] [place] [address] Sam Garcia MD [address] [place] [address] documented as of this encounter Procedures Procedure Name Priority Date/Time Associated Diagnosis Comments ELECTROCARDIOGRAM REPORT Routine 024 9:51 AM EST documented in this encounter Results * Electrocardiogram Report (07/12/2024 9:51 AM EST) us Demo Provider [facility] IN CLINIC/BEDSIDE ORDERABL ES Final Result documented in this encounter Visit Diagnoses Not on filedocumented in this encounter Care Teams Marine Fitter Relationship Specialty Start Date End Date Sam Garcia MD [address] [place] [address] PCP - General Family Medicine 09/14/23 documented as of this encounter
--- OUTSIDE RECORDS SUMMARY | 2025-03-17 11:55 | XMS_ITS | Encounter Summary ---
Author Organization [facility] Address [address] [facility] [place] [address] Care Team Providers Care Food Safety Director Name Role Phone Sam Garcia MD Primary Care Provider [phone] Encounter Details Date Type Department Care Team ( Contact Info) Description 11/19/2023 [facility] [address] [place] [address] Sam Garcia MD [address] [place] [address] Social History Tobacco Use Types Packs/Day Years [...] EDT Office Visit [facility] [address] [facility] [place] [address] Nola Knight PA [address] [place] [address] 06/07/2025 8:00 AM EDT Office Visit [facility] [address] [place] [address] Sam Garcia MD [address] [place] [address] documented as of this encounter Procedures Procedure Name Priority Date/Time Associated Diagnosis Comments SCANNED LABS Routine 11/19/2023 8:49 AM EDT documented in this encounter Results * SCANNED LABS (11/19/2023 8:49 AM EDT) Sam Garcia MD LAB CHG PERFORMABLES Final Resul t documented in this encounter Visit Diagnoses Not on filedocumented in this encounter Care Teams Food Safety Director Relationship Specialty Start Date End Date Sam Garcia MD [address] [place] [address] PCP - General Family Medicine 09/14/23 documented as of this encounter
--- OUTSIDE RECORDS SUMMARY | 2025-03-17 11:55 | XMS_ITS | Encounter Summary ---
Author Organization [facility] Address [address] [facility] [place] [address] Care Team Providers Care Shampoo Technician Name Role Phone Sam Garcia MD Primary Care Provider [phone] Encounter Details Date Type Department Care Team (Late Contact Info) Description 11/25/2024 Abstract [facility] OB [address] [facility] [place] [address] [address] [facility] [address] Miguel Zaidi, [facility] Social History Tobacco Use Types Packs/Day Years [...] 03/27/2025 8:30 AM EDT Office Visit [facility] [address] [facility] [place] [address] Nola Knight PA [address] [place] [address] 06/07/2025 8:00 AM EDT Office Visit [facility] CW[facility] [address] [place] [address] Sam Garcia MD [address] [place] [address] documented as of this encounter Visit Diagnoses Not on filedocumented in this encounter Care Teams Shampoo Technician Relationship Specialty Start Date End Date Sam Garcia MD [address] [place] [address] PCP - General Family Medicine 09/14/23 documented as of this encounter
--- OUTSIDE RECORDS SUMMARY | 2025-03-17 11:55 | XMS_ITS | Encounter Summary ---
Author Organization [facility] Address [address] [place] [address] Care Team Providers Care Gaming Surveillance Observer Name Role Phone Sam Garcia MD Primary Care Provider [phone] Encounter Details Date Type Department Care Team (Late st Contact Info) Description 03/09/2025 Orders Only [facility] [address] [place] [address] Provider, MD Vicki [address] [place] [address] Social History Tobacco Use Types Packs/Day Years Used Date Smoking Tobacco: Former Cigarettes Passive Smoke Exposure: Past Smokeless Tobacco: Never Alcohol Use Standard Drinks/Week Comments Yes 0 [...] on file documented as of this encounter Procedures Procedure Name Priority Date/Time Associated Diagnosis Comments COMPLETE TRANSTHORACIC ECHO (TTE) W/WO IMAGING AGENT, STRAIN, 3D, BUBBLE STUDY Routine 03/09/2025 11:42 AM EDT documented in this encounter Results * Complete Echo (TTE) w/wo Imaging Agent, Strain, 3D, Bubble Study (03/09/2025 11:42 AM EDT) Anatomical Region Laterality Modality Ultrasound us Historical Provider MD LEIGH ECHO PROCEDURES Final Result documented in this encounter Visit Diagnoses Not on filedocumented in this encounter Care Teams Gaming Surveillance Observer Relationship Specialty Start Date End Date Sam Garcia MD [address] [place] [address] PCP - General 07/24/22 documented as of this encounter
--- OUTSIDE RECORDS SUMMARY | 2025-03-17 11:55 | XMS_ITS | Encounter Summary ---
Author Organization [facility] Address [address] [place] [address] Care Team Providers Care Professor Of Environmental Studies Name Role Phone Sam Garcia MD Primary Care Provider [phone] Reason for Visit * Reason Comments Med Refill Encounter Details Date Type Department Care Team ([facility] Contact Info) Description 04/02/2024 [facility] [address] [place] [address] Sam Garcia MD [address] [place] [address] Essential hypertension, benign Social History Tobacco Use [...] Upcoming Encounters Date Type Department Care Team ([facility] Contact Info) Description 03/27/2025 8:30 AM EDT Office Visit NOM[facility] [address] [place] [address] Nola Knight PA [address] [place] [address] [place] [address] 06/07/2025 8:00 AM EDT Office Visit [facility] CWM [address] [place] [address] Sam Garcia MD [address] [place] [address] documented as of this encounter Visit Diagnoses Diagnosis Essential hypertension, benign Essential hypertension, benign documented in this encounter Care Teams Professor Of Environmental Studies Relationship Specialty Start Date End Date Sam Garcia MD [address] [place] [address] PCP - General Family Medicine 09/14/23 documented as of this encounter
--- OUTSIDE RECORDS SUMMARY | 2025-03-17 11:55 | XMS_ITS | Encounter Summary ---
Author Organization [facility] Address [address] [facility] [place] [address] Care Team Providers Care Supervisor Pyrotechnic Loading Name Role Phone Sam Garcia MD Primary Care Provider [phone] Encounter Details Date Type Department Care Team ([facility] Contact Info) Description 07/12/2024 Orders Only [facility] [address] [place] [address] Onofre Alston MD [address] [place], [place] [address] Social History Tobacco Use Types Packs/Day Years [...] Upcoming Encounters Date Type Department Care Team ([facility] Contact Info) Description 03/27/2025 8:30 AM EDT Office Visit [facility] [address] [facility] [address] Nola Knight PA [address] [place] [address] 06/07/2025 8:00 AM EDT Office Visit [facility] C[facility] [address] [place] [address] Sam Garcia MD [address] [place] [address] documented as of this encounter [...] on filedocumented in this encounter Care Teams Supervisor Pyrotechnic Loading Relationship Specialty Start Date End Date Sam Garcia MD [address] [place] [address] PCP - General Family Medicine 09/14/23 documented as of this encounter
--- OUTSIDE RECORDS SUMMARY | 2025-03-17 11:55 | XMS_ITS | Encounter Summary ---
Author Organization [facility] Address [address] [facility] [place] [address] Care Team Providers Care Vault Installer Name Role Phone Sam Garcia MD Primary Care Provider [phone] Sam Garcia MD Primary Care Provider [phone] Encounter Details Date Type Department Care Team [...] Upcoming Encounters Date Type Department Care Team ([facility] Contact Info) Description 03/27/2025 8:30 AM EDT Office Visit [facility] BCP OB [address] [facility] [place] [address] Nola Knight PA [address] [facility] [place] [address] 06/07/2025 8:00 AM EDT Office Visit [facility] SHIRLENE PERRY [address] [place] [address] Sam Garcia MD [address] [place] [address] documented as of this encounter Procedures Procedure Name Priority Date/Time Associated Diagnosis Comments ECG 12-LEAD 08/04/2023 2:10 PM EST documented in this encounter Results * ECG 12-LEAD (08/04/2023 2:10 PM EST) Anatomical Region Laterality Modality Other 08/04/2023 2:10 PM EST Narrative 08/05/2023 7:02 [place] [address] Electrocardiograph Report Signed Patient: DORIS SHEFFIELD MR#: [id number] : 1965 Acct:[id number] Age/Sex: 57 / F ADM Date: 08/04/23 Loc: PST Attending Dr: Johnny Davidson D.O. Ordering Physician: Johnny Davidson D.O. Date of Service: 08/04/23 Procedure(s): ECG 12 lead Accession Number(s): [id number] cc: [facility] Test Date: 2023-08-04 Pat Name: DORIS SHEFFIELD Department: Room: - Gender: Female Deck Cadet: : 1965 Requested By: JOHNNY DAVIDSON Order Number: [id number] Reading MD: JAMAAL MCDERMOTT Measurements Intervals Timber Rate: 100 P: 38 RI: 181 QRS: 59 QRSD: 94 T: 61 QT: 385 QTc: 498 Interpretive Statements SINUS TACHYCARDIA NONSPECIFIC T-WAVE ABNORMALITY ABNORMAL RHYTHM ECG No previous ECG available for comparison Electronically Signed On 08-05-2023 7:02:16 EST by JAMAAL MCDERMOTT Dictated By: Jamaal Mcdermott D.O. Signed By: 08/05/23 0702 DD/ 1410 TD/TT: Envelope Adjuster: Procedure Note Radiology, Radiologist, MD - 08/05/2023 The [place] [id number] Electrocardiograph Report Signed Patient: DORIS SHEFFIELD AMR#: [id number] : 1965Acct:[id number] Age/Sex: 57 / FADM Date: 08/04/23 Loc: PST Attending Dr: Johnny Davidson D.O. Ordering Physician: Johnny Davidson D.O. Date of Service: 08/04/23 Procedure(s): ECG 12 lead Accession Number(s): [id number] cc: [facility] Test Date: 2023-08-04 Pat Name: DORIS SHEFFIELD Department: Room: - Gender: Female Deck Cadet: : 1965 Requested By: JOHNNY DAVIDSON Order Number: [id number] Reading MD: JAMAAL MCDERMOTT Measurements Intervals Timber Rate: 100 P: 38 RI: 181 QRS: 59 QRSD: 94 T: 61 QT: 385 QTc: 498 Interpretive Statements SINUS TACHYCARDIA NONSPECIFIC T-WAVE ABNORMALITY ABNORMAL RHYTHM ECG No previous ECG available for comparison Electronically Signed On 08-05-2023 7:02:16 EST by JAMAAL MCDERMOTT Dictated By: Jamaal Mcdermott D.O. Signed By:08/05/23 0702 DD/ 1410 TD/TT: Envelope Adjuster: us Generic External Data Provider [facility] Final Result documented in this encounter Visit Diagnoses Not on filedocumented in this encounter Care Teams Vault Installer Relationship Specialty Start Date End Date Sam Garcia MD PCP - General Family Medicine 05/04/23 09/13/23 Sam Garcia MD [address] [place] [address] PCP - General Family Medicine 09/14/23 documented as of this encounter
--- NOTE | 2025-03-17 12:03 | ED.GENADUL1 ---
HPI HPI - General Adult General Chief complaint: Skin/Abscess/Foreign Body Stated complaint: POST OP COMPLICATION Time Seen by Provider: 03/17/25 11:56 Source: patient Mode of arrival: walk-in History of Present Illness HPI narrative: 59-year-old female presents to the emergency department for bruising on her wrist. She had an IV started there this morning for a D&C and when she got home it became bruised. She was worried about having a blood clot. Related Data Home Medications ?Medication ?Instructions ?Recorded ?Confirmed amlodipine 10 mg tablet 10 mg PO DAILY 02/05/23 03/17/25 hydrochlorothiazide 25 mg tablet 25 mg PO DAILY 02/05/23 03/17/25 losartan 100 mg tablet (Cozaar) 100 mg PO DAILY 02/05/23 03/17/25 hydroxyzine HCl 25 mg tablet 25 mg PO BID 08/04/23 03/17/25 acetaminophen 500 mg tablet 500 mg PO Q6H PRN pain 03/02/25 03/17/25 allopurinol 300 mg tablet 300 mg PO DAILY 03/02/25 03/17/25 aspirin 81 mg tablet,delayed 162 mg PO DAILY 03/02/25 03/17/25 release (Adult Aspirin Regimen) budesonide-formoterol HFA 160 2 inh inhalation Q12H 03/02/25 03/17/25 mcg-4.5 mcg/actuation aerosol inhaler (Symbicort) levothyroxine 75 mcg tablet 75 mcg PO DAILY 03/02/25 03/17/25 Previous Rx's ?Medication ?Instructions ?Recorded albuterol sulfate 90 mcg/actuation 2 inh inhalation Q4H PRN shortness 07/11/24 aerosol inhaler of breath or wheezing #8.5 grams Allergies Allergy/AdvReac Type Severity Reaction Status Date / Time meperidine (From Demerol) Allergy Hives Verified 03/02/25 10:53 Opioid HPI Opioid Management Most Recent Opioid Data: Last Pain Scale 3 Today, 09:03 Last Pain Assessment Today, 06:15 Review of Systems ROS Narrative A ten point review of systems is negative except as noted above. [facility] Medical History (Updated 03/17/25 @ 11:59 by Roman Alston MD) History of blood transfusion ?Z92.89 - Personal history of other medical treatment (ICD-10) Activity intolerance ?R68.89 - Other general symptoms and signs (ICD-10) Elbow pain ?M25.529 - Pain in unspecified elbow (ICD-10) Impaired functional mobility, balance, gait, and endurance ?Z74.09 - Other reduced mobility (ICD-10) Gouty arthritis ?M10.9 - Gout, unspecified (ICD-10) Globus sensation ?R09.A2 - Foreign body sensation, throat (ICD-10) Osteoarthritis ?M19.90 - Unspecified osteoarthritis, unspecified site (ICD-10) Generalized weakness ?R53.1 - Weakness (ICD-10) Lumbar degenerative disc disease ?M51.369 - Other intervertebral disc degeneration, lumbar region without mention of lumbar back pain or lower extremity pain (ICD-10) Lower extremity edema ?R60.0 - Localized edema (ICD-10) Shoulder pain ?M25.519 - Pain in unspecified shoulder (ICD-10) Gastritis ?K29.70 - Gastritis, unspecified, without bleeding (ICD-10) Hemorrhoids ?K64.9 - Unspecified hemorrhoids (ICD-10) Hypothyroidism (acquired) ?E03.9 - Hypothyroidism, unspecified (ICD-10) Ankle arthritis ?M19.079 - Primary osteoarthritis, unspecified ankle and foot (ICD-10) Anemia ?D64.9 - Anemia, unspecified (ICD-10) Left foot pain ?M79.672 - Pain in left foot (ICD-10) Dyspnea on exertion ?R06.09 - Other forms of dyspnea (ICD-10) Arthritis ?M19.90 - Unspecified osteoarthritis, unspecified site (ICD-10) Depression ?F32.A - Depression, unspecified (ICD-10) Chronic obstructive pulmonary disease ?J44.9 - Chronic obstructive pulmonary disease, unspecified (ICD-10) Snoring ?R06.83 - Snoring (ICD-10) Post-menopausal bleeding ?N95.0 - Postmenopausal bleeding (ICD-10) Menopause ?Z78.0 - Asymptomatic menopausal state (ICD-10) CKD (chronic kidney disease) ?N18.9 - Chronic kidney disease, unspecified (ICD-10) Anxiety ?F41.9 - Anxiety disorder, unspecified (ICD-10) Atrial fibrillation ?I48.91 - Unspecified atrial fibrillation (ICD-10) High cholesterol ?E78.00 - Pure hypercholesterolemia, unspecified (ICD-10) Hypertension ?I10 - Essential (primary) hypertension (ICD-10) Surgical History (Updated 03/02/25 @ 11:05 by Chary Stewart NP) History of radiofrequency ablation (RFA) of nerve of lumbar spine ?Z98.890 - Other specified postprocedural states (ICD-10) History of total hip arthroplasty (2023) ?Z96.649 - Presence of unspecified artificial hip joint (ICD-10) H/O dilation and curettage (08/07/23) ?Z98.890 - Other specified postprocedural states (ICD-10) History of colonoscopy ?Z98.890 - Other specified postprocedural states (ICD-10) S/P epidural steroid injection ?Z92.241 - Personal history of systemic steroid therapy (ICD-10) History of tubal ligation ?Z98.51 - Tubal ligation status (ICD-10) History of bilateral oophorectomy ?Z90.722 - Acquired absence of ovaries, bilateral (ICD-10) History of arthroplasty of left ankle ?Z98.890 - Other specified postprocedural states (ICD-10) History of arthroscopy of knee ?Z98.890 - Other specified postprocedural states (ICD-10) History of total hip arthroplasty ?Z96.649 - Presence of unspecified artificial hip joint (ICD-10) Family History (Updated 02/05/23 @ 12:43 by Chary Stewart NP) Other Family history of hypertension Family history of kidney cancer Family history of stroke Family history of throat cancer Social History (Updated 03/17/25 @ 06:30 by Rand Choi RN) Within the past year, how often did you have a drink containing alcohol: 4 or more times a week Within the past year, how many standard drinks containing alcohol did you have on a typical day: 1 or 2 Total score: 0 Score interpretation: A score less than 3 is consistent with normal alcohol consumption. Smoking status: Former smoker Do you use any of these nicotine containing products: vaping products Nicotine containing products detail: non nicotene vape Non-prescribed substance use: cannabis (any form) Non-prescribed substance use details: joe Highest level of school completed/degree received: high school graduate Little interest or pleasure in doing things: not at all Feeling down, depressed, or hopeless: not at all Exam Narrative Exam Narrative: Nurses note and vital signs reviewed and patient is not hypoxic. General: The patient appears well and in no apparent distress. Patient is resting comfortably on cart. Skin: Warm, dry, no pallor noted. There is no rash noted. On the flexor side of her wrist is ecchymosis. Fingers have full range of motion. Radial pulse 2+. Head: Normocephalic, atraumatic Eye: Normal conjunctiva, no drainage Ears, Nose, Mouth, and Throat: oral mucosa is moist. Nares patent. Cardiovascular: Regular Rate and Rhythm Respiratory: Patient is in no distress, no accessory muscle use, lungs are clear to auscultation, no wheezing, rales or rhonchi Back: non-tender GI: Musculoskeletal: The patient has no evidence of calf tenderness, no pitting edema, symmetrical pulses noted bilaterally Neurological: A&O, normal speech Psychiatric: Cooperative Constitutional Vital Signs, click to edit/add: Last Vital Signs Temp 97.5 F L 03/17/25 11:51 Pulse 90 03/17/25 11:51 Resp 18 03/17/25 11:51 BP 173/87 H 03/17/25 11:51 Pulse Ox 99 03/17/25 11:51 O2 Del Method Room Air 03/17/25 11:51 Course Vital Signs Vital signs: Vital Signs Temperature 97.5 F L 03/17/25 11:51 Pulse Rate 90 03/17/25 11:51 Respiratory Rate 18 03/17/25 11:51 Blood Pressure 173/87 H 03/17/25 11:51 Pulse Oximetry 99 03/17/25 11:51 Oxygen Delivery Method Room Air 03/17/25 11:51 Temperature 97.5 F L 03/17/25 11:51 Pulse Rate 90 03/17/25 11:51 Respiratory Rate 18 03/17/25 11:51 Blood Pressure 173/87 H 03/17/25 11:51 Pulse Oximetry 99 03/17/25 11:51 Oxygen Delivery Method Room Air 03/17/25 11:51 Medical Decision Making [facility] Narrative Medical decision making narrative: The patient was reassured it was recommended ice and elevation. Treatment diagnosis and follow-up were discussed with the patient. Differential Diagnosis Differential Diagnosis: Ecchymosis Discharge Plan Discharge Chief Complaint: Skin/Abscess/Foreign Body Clinical Impression: Ecchymosis Patient Disposition: Home, Self-Care Time of Disposition Decision: 11:59 Mode of Transportation: Private Vehicle Prescriptions / Home Meds: No Action amlodipine 10 mg tablet 10 mg PO DAILY hydrochlorothiazide 25 mg tablet 25 mg PO DAILY losartan [Cozaar] 100 mg tablet 100 mg PO DAILY allopurinol 300 mg tablet 300 mg PO DAILY budesonide-formoterol [Symbicort] 160-4.5 mcg/actuation HFA aerosol inhaler 2 inh INHALATION Q12H levothyroxine 75 mcg tablet 75 mcg PO DAILY aspirin [Adult Aspirin Regimen] 81 mg tablet,delayed release (DR/EC) 162 mg PO DAILY acetaminophen 500 mg tablet 500 mg PO Q6H PRN (Reason: pain) hydroxyzine HCl 25 mg tablet 25 mg PO BID albuterol sulfate 90 mcg/actuation HFA aerosol inhaler 2 inh inhalation Q4H PRN (Reason: shortness of breath or wheezing) Qty: 8.5 0RF Print Language: Sen[place]e Instructions: Ecchymosis (ED) Additional Instructions: Use ice and elevate Referrals: Sam Garcia MD [Primary Care Provider, Family Practice] - 1 week
== END 2025-03-17 12:10 | disposition home or self-care (01) ==
PROVIDERS: Emergency Provider Emergency Medicine; PCP Family Medicine
DX: R58 Hemorrhage, not elsewhere classified (principal); Z87.891 Personal history of nicotine dependence; Z98.890 Other specified postprocedural states
CPT/HCPCS: 99281